=== PATIENT | female | born 1965 ===

== ENCOUNTER 2020-03-14 16:48 | Outpatient (REF) | payer OTHER, SELFPAY ==
--- NOTE | 2020-03-14 | MM_ITS ---
EXAMINATION: MM SCREENING DIGITAL BREAST TOMOSYNTHESIS, BILATERAL CLINICAL INFORMATION: Screening. Asymptomatic. Family history breast cancer, sister, half sister. Prior history focus ALH right breast 2014. No atypia at subsequent surgical biopsy. The lifetime risk of breast cancer based on the Tyrer-Cuzick Model is 32%. COMPARISON: Mammography: 10/20/2018, 3 08/12/2017, 07/21/2016, 01/16/2016, 06/13/2015, 12/06/2014 TECHNIQUE: Digital breast tomosynthesis is performed in both the craniocaudal and mediolateral oblique views along with computer-aided detection (CAD). Synthesized 2D images are generated from the tomosynthesis. FINDINGS: There are scattered areas of fibroglandular density (ACR BI-RADS breast composition Category b). Parenchymal pattern is similar to prior studies. No developing density or interval mass or architectural abnormality. There is biopsy clip marker again seen central right breast. No significant changes. MM/MM tomosynthesis screening BI IMPRESSION: No significant changes from prior studies. ASSESSMENT: BI-RADS 1: Negative RECOMMENDATION: 1. Routine annual mammography screening. 2. The lifetime risk of breast cancer based on the Tyrer-Cuzick Model is 32%. Additional annual adjunct screening with breast MRI may be of benefit in women with a risk score of 20% or greater. This patient's information was entered into a reminder system with a target due date for their next mammogram.
== END 2020-03-14 16:49 | disposition home or self-care (01) ==
LOC: HO.MAMMO 16:48
PROVIDERS: PCP Internal Medicine; Visit Provider Internal Medicine
DX: Z12.31 Encounter for screening mammogram for malignant neoplasm of breast (principal)
CPT/HCPCS: 77063; 77067

== ENCOUNTER → 2020-05-17 12:51 | Outpatient (BNVA) | payer OTHER, SELFPAY | PROVIDERS: PCP Internal Medicine; Visit Provider Nurse Practitioner | DX: Z76.89 Persons encountering health services in other specified circumstances (principal) | CPT/HCPCS: Q3014 ==

== ENCOUNTER → 2020-11-12 15:56 | Outpatient (BNVA) | payer OTHER, SELFPAY | PROVIDERS: PCP Internal Medicine; Visit Provider Nurse Practitioner | CPT/HCPCS: Q3014 ==

== ENCOUNTER → 2020-12-28 10:47 | Outpatient (BNVA) | payer OTHER, SELFPAY | PROVIDERS: Visit Provider Nurse Practitioner | DX: K59.04 Chronic idiopathic constipation (principal); K21.9 Gastro-esophageal reflux disease without esophagitis; R10.9 Unspecified abdominal pain; R14.0 Abdominal distension (gaseous) | CPT/HCPCS: 99212 ==

== ENCOUNTER 2021-01-21 14:13 | Outpatient (REF) | payer OTHER, SELFPAY ==
[2021-01-21 14:26] LABS: MANUAL DIFF FLAG NO
[2021-01-21 14:48] LABS: Basophils Absolute Auto 0.1 X10*3/uL (0.0-0.2); Basophils Percent Auto 0.7 % (0-2); Eosinophils Absolute Auto 0.2 X10*3/uL (0.0-0.4); Eosinophils Percent Auto 3.3 % (0-4); Hematocrit 40.8 % (37-47); Hemoglobin 12.9 g/dl (12.0-16.0); Imm Gran Abs Auto 0.03 X10*3/uL (0.00-0.03); Imm Gran Pct Auto 0.4 % (0.0-0.4); Lymphocytes Percent Auto 28.6 % (20-40); Mean Corpuscular HGB Conc 31.6 g/dl (31.0-35.0); Mean Corpuscular Hemoglobin 28.9 pg (27.0-33.0); Mean Corpuscular Volume 91.3 fL (80-98); Mean Platelet Volume 10.5 fL (9.4-12.3); Monocytes Absolute Auto 0.4 X10*3/uL (0.1-1.2); Monocytes Percent Auto 5.4 % (2-11); Neutrophils Absolute Auto 4.4 X10*3/uL (2.0-8.3); Neutrophils Percent Auto 61.6 % (45-73); Platelet Count 265 X10*3/uL (160-400); Red Blood Count 4.47 X10*6/uL (4.20-5.50); Red Cell Distribution Width 14.3 % (11.0-16.0); White Blood Count 7.1 X10*3/uL (4.8-10.8)
[2021-01-21 14:52] LABS: Prothrombin Time 10.8 SEC (9.9-13.0)
[2021-01-21 15:12] LABS: Cholesterol 171 mg/dL; Glucose Fasting 105 mg/dL (60-99); HDL Cholesterol 47 mg/dL; Iron 67 mcg/dL (30-160); LDL Cholesterol Calculated 97 mg/dl; Percent Iron Saturation 19 % (15-50); Total Iron Binding Capacity 359 mcg/dL (228-428); Triglycerides 135 mg/dL; Unsaturated Iron Binding 292 ug/dL
[2021-01-21 15:33] LABS: TSH reflex Free T4 2.93 uIU/mL (0.32-4.0); Vitamin D 25-OH Total 34.4 ng/mL (>30)
[2021-01-21 15:48] LABS: Folate 17.6 ng/mL (> or = 4.0); Vitamin B12 347 pg/mL (200-900)
== END 2021-01-21 14:14 | disposition home or self-care (01) ==
LOC: HO.LAB 14:13
PROVIDERS: PCP Internal Medicine; Visit Provider Nurse Practitioner Family
DX: E66.9 Obesity, unspecified (principal); I10 Essential (primary) hypertension; R23.8 Other skin changes; R53.82 Chronic fatigue, unspecified; E78.00 Pure hypercholesterolemia, unspecified; E55.9 Vitamin D deficiency, unspecified
CPT/HCPCS: 36415; 80061; 82306; 82607; 82746; 82947; 83540; 84443; 85025; 85610; 85730

== ENCOUNTER 2021-02-08 10:48 | Outpatient (REF) | payer OTHER, SELFPAY ==
--- NOTE | ~2021-02-08 | XR_ITS ---
EXAMINATION: CHEST X-RAY, BILATERAL RIB X-RAYS AND THORACIC SPINE X-RAY CLINICAL INFORMATION: Bilateral lower rib pain radiating to the back COMPARISON: None TECHNIQUE: One view of the chest, 3 views of the bilateral ribs and 3 views of the thoracic spine FINDINGS: Chest: The cardiac and mediastinal contours are stable. The lung volumes are low. The lungs are clear. There is no pleural effusion or pneumothorax. Bilateral RIBS: No fracture or bone lesion seen. Thoracic spine: There is mild curvature of the lower thoracic and upper lumbar spine to the left. Bone alignment is otherwise normal. No fracture or dislocation is seen. There is multilevel degenerative spondylosis of the mid and lower thoracic spine. There is mild degenerative spondylosis at C4-C5 C5-C6 and C6-C7. XR/XR thoracic spine 2V IMPRESSION: No evidence for acute disease in the chest. No rib fracture or bone lesion. Mild degenerative changes of the thoracic spine.
--- NOTE | ~2021-02-08 | XR_ITS ---
EXAMINATION: CHEST X-RAY, BILATERAL RIB X-RAYS AND THORACIC SPINE X-RAY CLINICAL INFORMATION: Bilateral lower rib pain radiating to the back COMPARISON: None TECHNIQUE: One view of the chest, 3 views of the bilateral ribs and 3 views of the thoracic spine FINDINGS: Chest: The cardiac and mediastinal contours are stable. The lung volumes are low. The lungs are clear. There is no pleural effusion or pneumothorax. Bilateral RIBS: No fracture or bone lesion seen. Thoracic spine: There is mild curvature of the lower thoracic and upper lumbar spine to the left. Bone alignment is otherwise normal. No fracture or dislocation is seen. There is multilevel degenerative spondylosis of the mid and lower thoracic spine. There is mild degenerative spondylosis at C4-C5 C5-C6 and C6-C7. XR/XR ribs BI min 4V w CXR1V IMPRESSION: No evidence for acute disease in the chest. No rib fracture or bone lesion. Mild degenerative changes of the thoracic spine.
== END 2021-02-08 10:49 | disposition home or self-care (01) ==
LOC: HO.XRAY 10:48
PROVIDERS: PCP Internal Medicine; Referring Provider Internal Medicine; Visit Provider Nurse Practitioner
DX: R10.9 Unspecified abdominal pain (principal); K21.9 Gastro-esophageal reflux disease without esophagitis; K22.70 Barrett's esophagus without dysplasia; K59.04 Chronic idiopathic constipation; R14.0 Abdominal distension (gaseous); Z83.71 Family history of colonic polyps
CPT/HCPCS: 71111; 72070; 99212

== ENCOUNTER 2021-03-21 13:59 | Outpatient (REF) | payer OTHER, SELFPAY ==
--- NOTE | ~2021-03-21 | MM_ITS ---
EXAMINATION: MM SCREENING DIGITAL BREAST TOMOSYNTHESIS, BILATERAL CLINICAL INFORMATION: Screening. Asymptomatic. The lifetime risk of breast cancer based on the Tyrer-Cuzick Model is 31%. COMPARISON: Mammography: 03/14/2020, 02/20/2019, 08/12/2017 TECHNIQUE: Digital breast tomosynthesis is performed in both the craniocaudal and mediolateral oblique views along with computer-aided detection (CAD). Synthesized 2D images are generated from the tomosynthesis. FINDINGS: There are scattered areas of fibroglandular density (ACR BI-RADS breast composition Category b). Parenchymal pattern is similar to prior exams. No developing density or interval mass or architectural abnormality. There is biopsy clip marker again noted central 11-12:00 right breast. There are scattered bilateral punctate calcifications again seen. No significant changes from prior studies. MM/MM tomosynthesis screening BI IMPRESSION: No mammographic evidence of malignancy. ASSESSMENT: BI-RADS 2: Benign RECOMMENDATION: Routine annual mammography screening. This patient's information was entered into a reminder system with a target due date for their next mammogram.
== END 2021-03-21 14:00 | disposition home or self-care (01) ==
LOC: HO.MAMMO 13:59
PROVIDERS: Visit Provider Internal Medicine
DX: Z12.31 Encounter for screening mammogram for malignant neoplasm of breast (principal)
CPT/HCPCS: 77063; 77067

== ENCOUNTER 2021-12-31 14:46 | Outpatient (REF) | payer OTHER, SELFPAY ==
--- NOTE | ~2021-12-31 | XR_ITS ---
EXAMINATION: XR SACRUM AND COCCYX CLINICAL INFORMATION: Sacrococcygeal disorder COMPARISON: X-ray of the lumbar sacral spine July 2016 TECHNIQUE: 3 views of the sacrum/coccyx FINDINGS: The sacrum and coccyx bones are normal without fracture or bone lesion. The sacroiliac joints are normal. The partially visualized pelvis also normal. Postsurgical changes noted overlying the lower abdomen unchanged. XR/XR sacrum coccyx min 2V IMPRESSION: Unremarkable examination.
[2021-12-31 15:01] LABS: MANUAL DIFF FLAG NO
[2021-12-31 15:21] LABS: Basophils Absolute Auto 0.1 X10*3/uL (0.0-0.2); Basophils Percent Auto 0.9 % (0-2); Eosinophils Absolute Auto 0.2 X10*3/uL (0.0-0.4); Eosinophils Percent Auto 2.6 % (0-4); Hematocrit 43.2 % (37.0-47.0); Hemoglobin 13.7 g/dl (12.0-16.0); Imm Gran Abs Auto 0.03 X10*3/uL (0.00-0.03); Imm Gran Pct Auto 0.4 % (0.0-0.4); Lymphocytes Absolute Auto 2.2 X10*3/uL (1.2-4.9); Lymphocytes Percent Auto 28.6 % (20-40); Mean Corpuscular HGB Conc 31.7 g/dl (31.0-35.0); Mean Corpuscular Hemoglobin 28.5 pg (27.0-33.0); Mean Platelet Volume 10.5 fL (9.4-12.3); Monocytes Absolute Auto 0.4 X10*3/uL (0.1-1.2); Monocytes Percent Auto 5.2 % (2-11); Neutrophils Absolute Auto 4.8 x10*3/uL (2.0-8.3); Neutrophils Percent Auto 62.3 % (45-73); Platelet Count 278 X10*3/uL (160-400); Red Cell Distribution Width 15.5 % (11.0-16.0); White Blood Count 7.7 X10*3/uL (4.8-10.8)
[2021-12-31 15:54] LABS: Alanine Aminotransferase 11 U/L (0-31); Albumin Level 4.3 g/dL (3.5-5.0); Alkaline Phosphatase 95 U/L (39-117); Anion Gap 18 (12-20); Aspartate Amino Transferase 13 U/L (5-31); Bilirubin Total 0.3 mg/dL (0.0-1.0); Blood Urea Nitrogen 27 mg/dL (9-16); Calcium 9.7 mg/dL (8.4-10.2); Carbon Dioxide 23 mmol/L (22-29); Chloride 104 mmol/L (96-108); Estimated Glomerular Filt Rate 31; Glucose Random 108 mg/dL (60-115); Potassium 4.5 mmol/L (3.3-5.1); Sodium 140 mmol/L (135-145); Total Protein 7.4 g/dL (6.5-8.0)
== END 2021-12-31 14:47 | disposition home or self-care (01) ==
LOC: HO.XRAY 14:46
PROVIDERS: PCP Internal Medicine; Visit Provider Nurse Practitioner
DX: Z01.818 Encounter for other preprocedural examination (principal); K21.9 Gastro-esophageal reflux disease without esophagitis; K22.70 Barrett's esophagus without dysplasia; K59.04 Chronic idiopathic constipation; M53.3 Sacrococcygeal disorders, not elsewhere classified; I12.9 Hypertensive chronic kidney disease with stage 1 through stage 4 chronic kidney disease, or unspecified chronic kidney disease; N18.30 Chronic kidney disease, stage 3 unspecified; Z83.71 Family history of colonic polyps; Z79.899 Other long term (current) drug therapy
CPT/HCPCS: 36415; 72220; 80053; 85025; 99212

== ENCOUNTER → 2022-02-10 13:11 | Outpatient (BNVA) | payer OTHER, SELFPAY | PROVIDERS: PCP Internal Medicine; Visit Provider Nurse Practitioner Family | DX: G47.33 Obstructive sleep apnea (adult) (pediatric) (principal) | CPT/HCPCS: 99202 ==

== ENCOUNTER 2022-03-26 13:50 | Outpatient (REF) | payer OTHER, SELFPAY ==
--- NOTE | ~2022-03-26 | MM_ITS ---
EXAMINATION: MM SCREENING DIGITAL BREAST TOMOSYNTHESIS, BILATERAL CLINICAL INFORMATION: Screening. Asymptomatic. Status post right breast biopsy in 2015. The lifetime risk of breast cancer based on the Tyrer-Cuzick Model is 30%. Additional annual screening with breast MRI may be of benefit in women with a score of 20% or greater. COMPARISON: Mammography: 03/21/2021 and studies dating back to 06/13/2015. TECHNIQUE: Digital breast tomosynthesis is performed in both the craniocaudal and mediolateral oblique views along with computer-aided detection (CAD). Synthesized 2D images are generated from the tomosynthesis. FINDINGS: There are scattered areas of fibroglandular density (ACR BI-RADS breast composition Category b). There is a stable parenchymal pattern of the left breast. Within the central medial aspect of the right breast, approximately 8 cm from the nipple, there is a 5 mm density that has not been seen previously and for which spot compression film is recommended. I do not definitely see this on mediolateral oblique imaging and rolled craniocaudal views may be of help in further evaluation as to where the density lies. MM/MM tomosynthesis screening BI IMPRESSION: New 5 mm density right breast for further evaluation. ASSESSMENT: BI-RADS 0: Incomplete - Need Additional Imaging Evaluation RECOMMENDATION: 1. Additional views of the right breast. 2. Targeted ultrasound if warranted after review of the additional views. 3. Radiology department staff will contact the patient for additional imaging.
== END 2022-03-26 13:51 | disposition home or self-care (01) ==
LOC: HO.MAMMO 13:50
PROVIDERS: PCP Internal Medicine Geriatric Medicine; Visit Provider Internal Medicine
DX: Z12.31 Encounter for screening mammogram for malignant neoplasm of breast (principal)
CPT/HCPCS: 77063; 77067

== ENCOUNTER 2022-04-08 10:59 | Outpatient (REF) | payer OTHER, SELFPAY ==
--- NOTE | ~2022-04-08 | MM_ITS ---
EXAMINATION: MM DIAGNOSTIC DIGITAL BREAST TOMOSYNTHESIS, RIGHT US DIAGNOSTIC ULTRASOUND BREAST, RIGHT CLINICAL INFORMATION: Recall from screening for tiny nodular asymmetry mid central right breast on CC view. COMPARISON: Mammography: 03/26/2022, 03/21/2021, 03/14/2020, 10/20/2018 TECHNIQUE: Digital breast tomosynthesis is performed. 2D images are generated from the tomosynthesis. The following views are obtained: Spot CC, rolled CC x2 Ultrasound right breast is targeted to the 4:00 through 8:00 position using grayscale imaging and color Doppler without and with harmonics. FINDINGS: There are scattered areas of fibroglandular density (ACR BI-RADS breast composition Category b). The additional spot view demonstrates tiny nodular asymmetric density just under 5 mm with smooth margins. Finding is not is perceptible on the rolled views. The finding resides adjacent other chronic small fibronodular densities not of recent clinical concern. There is no architectural abnormality. Ultrasound demonstrates 2 tiny circumscribed cysts 6:00 position 4 cm from nipple, larger 5 mm. There is no solid mass or architectural abnormality. Results are discussed with the patient at time of visit. Finding on mammography has benign appearance. One of the small cysts noted on ultrasound may correspond to the finding. As a precaution, short interval six-month follow-up right mammography will be performed. MM/MM tomosynthesis added views R IMPRESSION: -Tiny smooth nodular asymmetric density mid central right breast, possibly corresponding to one of 2 tiny cysts visualized on targeted ultrasound. ASSESSMENT: BI-RADS 3: Probably Benign RECOMMENDATION: Diagnostic right mammography in 6 months. This patient's information was entered into a reminder system with a target due date for their next mammogram.
== END 2022-04-08 11:00 | disposition home or self-care (01) ==
LOC: HO.MAMMO 10:59
PROVIDERS: PCP Internal Medicine; Visit Provider Internal Medicine
DX: R92.2 Inconclusive mammogram (principal)
CPT/HCPCS: 76642; 77061; 77065

== ENCOUNTER 2022-04-30 14:57 | Outpatient (REF) | payer OTHER, SELFPAY | END 2022-04-30 14:58 | disposition home or self-care (01) | LOC: HO.LAB 14:57 | PROVIDERS: Visit Provider Nurse Practitioner Family | DX: R10.9 Unspecified abdominal pain (principal) | CPT/HCPCS: 87086 ==

== ENCOUNTER 2022-05-01 12:11 | Outpatient (REF) | payer OTHER, SELFPAY ==
--- NOTE | ~2022-05-01 | US_ITS ---
EXAMINATION: US ABDOMEN COMPLETE US APPENDIX CLINICAL INFORMATION: Right lower quadrant abdominal tenderness.. COMPARISON: 12/22/2016 TECHNIQUE: Real-time imaging of the abdominal viscera. FINDINGS: PANCREAS: The pancreas is obscured by overlying bowel gas. ABDOMINAL AORTA: The proximal abdominal aorta is not identified due to overlying bowel gas. The mid and distal abdominal aorta appear unremarkable. INFERIOR VENA CAVA: Visualized portions are normal. LIVER: Normal. The liver is normal in size. The liver contour is normal. Parenchymal echogenicity is normal. No focal hepatic lesion. There is no intrahepatic biliary duct dilatation seen. GALLBLADDER: Status post cholecystectomy. COMMON BILE DUCT: Normal in caliber measuring 0.4 cm in diameter. RIGHT KIDNEY: Normal. No hydronephrosis. No renal calculi or focal parenchymal lesions. The kidney measures 9 cm in maximum dimension. LEFT KIDNEY: Within the lower pole there is a 6 mm simple appearing cyst. No hydronephrosis. No renal calculi or focal solid parenchymal lesions. The kidney measures 9.4 cm in maximum dimension. SPLEEN: Normal. The spleen measures 9.5 cm in maximum dimension. FREE FLUID: None. APPENDIX: The appendix is not visualized by ultrasound. No blind ending tubular structure was identified. No adjacent free fluid is seen. US/US abdomen complete IMPRESSION: No significant abnormality of the abdomen on ultrasound. Nonvisualization of the appendix. This does not rule out appendicitis.
--- NOTE | ~2022-05-01 | US_ITS ---
EXAMINATION: US ABDOMEN COMPLETE US APPENDIX CLINICAL INFORMATION: Right lower quadrant abdominal tenderness.. COMPARISON: 12/22/2016 TECHNIQUE: Real-time imaging of the abdominal viscera. FINDINGS: PANCREAS: The pancreas is obscured by overlying bowel gas. ABDOMINAL AORTA: The proximal abdominal aorta is not identified due to overlying bowel gas. The mid and distal abdominal aorta appear unremarkable. INFERIOR VENA CAVA: Visualized portions are normal. LIVER: Normal. The liver is normal in size. The liver contour is normal. Parenchymal echogenicity is normal. No focal hepatic lesion. There is no intrahepatic biliary duct dilatation seen. GALLBLADDER: Status post cholecystectomy. COMMON BILE DUCT: Normal in caliber measuring 0.4 cm in diameter. RIGHT KIDNEY: Normal. No hydronephrosis. No renal calculi or focal parenchymal lesions. The kidney measures 9 cm in maximum dimension. LEFT KIDNEY: Within the lower pole there is a 6 mm simple appearing cyst. No hydronephrosis. No renal calculi or focal solid parenchymal lesions. The kidney measures 9.4 cm in maximum dimension. SPLEEN: Normal. The spleen measures 9.5 cm in maximum dimension. FREE FLUID: None. APPENDIX: The appendix is not visualized by ultrasound. No blind ending tubular structure was identified. No adjacent free fluid is seen. US/US appendix IMPRESSION: No significant abnormality of the abdomen on ultrasound. Nonvisualization of the appendix. This does not rule out appendicitis.
[2022-05-01 12:24] LABS: MANUAL DIFF FLAG NO
[2022-05-01 13:24] LABS: Basophils Percent Auto 0.5 % (0-2); Eosinophils Absolute Auto 0.2 X10*3/uL (0.0-0.4); Eosinophils Percent Auto 2.9 % (0-4); Hematocrit 42.8 % (37.0-47.0); Hemoglobin 13.4 g/dl (12.0-16.0); Imm Gran Abs Auto 0.02 X10*3/uL (0.00-0.03); Imm Gran Pct Auto 0.3 % (0.0-0.4); Lymphocytes Absolute Auto 2.4 X10*3/uL (1.2-4.9); Lymphocytes Percent Auto 31.6 % (20-40); Mean Corpuscular HGB Conc 31.3 g/dl (31.0-35.0); Mean Corpuscular Hemoglobin 28.9 pg (27.0-33.0); Mean Corpuscular Volume 92.2 fL (80.0-98.0); Mean Platelet Volume 11.7 fL (9.4-12.3); Monocytes Absolute Auto 0.4 X10*3/uL (0.1-1.2); Monocytes Percent Auto 4.9 % (2-11); Neutrophils Absolute Auto 4.5 x10*3/uL (2.0-8.3); Neutrophils Percent Auto 59.8 % (45-73); Platelet Count 217 X10*3/uL (160-400); Red Blood Count 4.64 X10*6/uL (4.20-5.50); White Blood Count 7.5 X10*3/uL (4.8-10.8)
[2022-05-01 13:28] LABS: Appearance Urine Clear; Color Urine Yellow; Glucose Urine UA Negative (Negative); Leukocyte Esterase Urine Negative (Negative); Nitrite Urine Negative (Negative); Specific Gravity - Urine 1.015 (1.005-1.025); UMIC TRIGGER UACC YES; Urine Blood Small (1+) (Negative); Urine Ketones Negative (Negative); Urine Protein 300 (3+) mg/dL (Neg-Trace)
[2022-05-01 13:37] LABS: Bacteria Urine None Seen (None Seen); Hyaline Casts Urine 0-2 /LPF (0-2); RBC Urine 0-2 /HPF (0-2); Squamous Epithelial Cell Urine 0-2 /HPF (0-2); WBC Urine 0-5 /HPF (0-5)
[2022-05-01 14:00] LABS: Creatinine Urine 96.86 mg/dL
[2022-05-01 14:04] LABS: Alanine Aminotransferase 11 U/L (0-31); Alkaline Phosphatase 82 U/L (39-117); Anion Gap 12 (12-20); Aspartate Amino Transferase 17 U/L (5-31); Bilirubin Total 0.3 mg/dL (0.0-1.0); Blood Urea Nitrogen 23 mg/dL (9-16); Calcium 9.2 mg/dL (8.4-10.2); Carbon Dioxide 23 mmol/L (22-29); Chloride 110 mmol/L (96-108); Cholesterol 196 mg/dL; Estimated Glomerular Filt Rate 39; Glucose Fasting 92 mg/dL (60-99); Glucose Random 92 mg/dL (60-115); HDL Cholesterol 53 mg/dL; LDL Cholesterol Calculated 116 mg/dl; Potassium 4.7 mmol/L (3.3-5.1); Sodium 140 mmol/L (135-145); Total Protein 6.9 g/dL (6.5-8.0); Triglycerides 135 mg/dL
[2022-05-01 14:11] LABS: Microalbum/Creatinine Ratio Ur 1270.9 ug/mg cr
[2022-05-01 14:18] LABS: TSH reflex Free T4 4.44 uIU/mL (0.32-4.0); Vitamin D 25-OH Total 21.9 ng/mL (>30)
== END 2022-05-01 12:12 | disposition home or self-care (01) ==
LOC: HO.US 12:11
PROVIDERS: PCP Internal Medicine; Visit Provider Nurse Practitioner Family
DX: Z00.00 Encounter for general adult medical examination without abnormal findings (principal); R10.813 Right lower quadrant abdominal tenderness; E55.9 Vitamin D deficiency, unspecified; I10 Essential (primary) hypertension; E78.00 Pure hypercholesterolemia, unspecified; E11.9 Type 2 diabetes mellitus without complications
CPT/HCPCS: 36415; 76700; 76705; 80053; 80061; 81001; 82043; 82306; 84439; 84443; 85025

== ENCOUNTER → 2022-06-09 19:30 | Outpatient (REF) | payer OTHER, SELFPAY | LOC: HO.SL 19:30 | PROVIDERS: PCP Internal Medicine; Visit Provider Nurse Practitioner Family | DX: G47.33 Obstructive sleep apnea (adult) (pediatric) (principal) | CPT/HCPCS: 95810 ==

== ENCOUNTER 2022-06-11 16:14 | Outpatient (REF) | payer OTHER, SELFPAY | END 2022-06-11 16:15 | disposition home or self-care (01) | LOC: HO.LAB 16:14 | PROVIDERS: Visit Provider Nurse Practitioner Family | DX: R82.90 Unspecified abnormal findings in urine (principal); M54.9 Dorsalgia, unspecified | CPT/HCPCS: 87086 ==

== ENCOUNTER → 2022-06-26 10:49 | Outpatient (BNVA) | payer OTHER, SELFPAY | PROVIDERS: PCP Internal Medicine; Visit Provider Nurse Practitioner | DX: K22.70 Barrett's esophagus without dysplasia (principal); K21.9 Gastro-esophageal reflux disease without esophagitis; K59.04 Chronic idiopathic constipation; R10.9 Unspecified abdominal pain; Z83.71 Family history of colonic polyps | CPT/HCPCS: 99212 ==

== ENCOUNTER 2022-08-11 18:20 | Outpatient (REF) | payer OTHER, SELFPAY ==
--- NOTE | ~2022-08-11 | MR_ITS ---
EXAMINATION: MR THORACIC SPINE WITHOUT CONTRAST CLINICAL INFORMATION: 57-year-old with unspecified abdominal and right flank pain, worse with activities. COMPARISON: None available. TECHNIQUE: MRI of the thoracic spine was obtained using routine sequences without contrast. FINDINGS: ALIGNMENT: There is slight lower thoracic dextrocurvature, minimally convex to the right at T8-T9. Mild kyphotic angulation is centered at T6-T7. Otherwise normal spinal alignment. VERTEBRAL BODIES AND BONE MARROW: Vertebral body heights are well-maintained. Bone marrow signal intensity is within normal limits. No fractures or aggressive osseous lesions are identified. DISC SPACES AND ENDPLATES: Discogenic degenerative changes are noted at multiple levels between T3-T4 and T11-T12 inclusive, with predominantly mild and moderate degrees of intervertebral disc space height loss, multilevel disc desiccation, Schmorl's nodes and mild-to -moderate degrees of anterior marginal spondylosis. There is bridging osteophytosis asymmetric to the right at T7-T8 and T8-T9 and on the right at T11-T12. PARASPINAL SOFT TISSUES: The paravertebral soft tissues are grossly unremarkable in appearance. There are scattered small probable renal cysts bilaterally which can be confirmed sonographically if clinically warranted. SPINAL CORD: The thoracic spinal cord is normal in morphology, caliber and signal intensity throughout. The conus terminates at the L2 level. CSF flow artifacts are seen within the spinal subarachnoid space at multiple levels. SPINAL LEVELS: C7-T1: Not included on the axial views. Suspect central to right paramedian disc herniation at this level. Cannot exclude cord impingement. Not well visualized. No significant neural foraminal stenosis. Consider MRI of the cervical spine. T1-T2: Partially included on the axials. No disc herniation or canal stenosis. No significant DJD or neural foraminal stenosis. T2-T3: Posterolateral disc osteophyte complex asymmetric to the left with minor facet arthropathy and minimal left-sided foraminal narrowing without neural impingement or canal stenosis. T3-T4: Posterolateral disc osteophyte complex asymmetric to the left and a right paramedian disc herniation without cord impingement or significant canal stenosis. No significant neural foraminal stenosis. T4-T5: Right posterolateral disc osteophyte complex noted with minor facet arthrosis without canal or neural foraminal stenosis. T5-T6: Minor posterolateral disc osteophyte complex and facet arthropathy, right more than left without canal or foraminal stenosis. T6-T7: Unremarkable. T7-T8: Unremarkable. T8-T9: Tiny right paramedian disc protrusion. No canal or foraminal stenosis. T9-T10: Small central to right paramedian disc protrusion without cord impingement, canal or foraminal stenosis. Minor facet arthrosis on the right. T10-T11: Central to right paramedian disc protrusion without cord impingement. No canal stenosis. Facet arthropathy noted on the right with [id number] right-sided neural foraminal stenosis. T11-T12: No disc herniation or canal stenosis. Mild facet arthropathy on the right without significant neural foraminal stenosis. T12-L1: Unremarkable. L1-L2: Tiny central disc protrusion. No facet arthrosis, canal or neural foraminal stenosis. MR/MR thoracic spine wo con IMPRESSION: 1. Mild mid thoracic kyphosis with slight lower thoracic dextrocurvature. 2. Multilevel DDD and spondylosis, with multilevel disc herniations and disc osteophyte complexes without spinal cord impingement or significant spinal canal stenosis. 3. Multilevel facet arthropathy as described above with [id number] right-sided neural foraminal stenosis at T10-T11 without neural impingement. 4. Suspect central to right paramedian disc herniation at C7-T1 which is not well visualized on this exam. Consider MR of the cervical spine to further assess if clinically warranted. 5. Normal appearance to the thoracic spinal cord. 6. Probable small renal cysts bilaterally which can be confirmed sonographically if clinically warranted.
== END 2022-08-11 18:21 | disposition home or self-care (01) ==
LOC: HO.MRI 18:20
PROVIDERS: PCP Internal Medicine; Visit Provider Nurse Practitioner
DX: M47.814 Spondylosis without myelopathy or radiculopathy, thoracic region (principal); R10.9 Unspecified abdominal pain
CPT/HCPCS: 72146

== ENCOUNTER → 2022-08-21 11:05 | Outpatient (BNVA) | payer OTHER, SELFPAY | PROVIDERS: PCP Internal Medicine; Visit Provider Nurse Practitioner | DX: K21.9 Gastro-esophageal reflux disease without esophagitis (principal); K22.70 Barrett's esophagus without dysplasia; K59.04 Chronic idiopathic constipation; R14.0 Abdominal distension (gaseous); Z83.71 Family history of colonic polyps | CPT/HCPCS: 99212 ==

== ENCOUNTER 2022-09-04 09:05 | Outpatient (REF) | payer OTHER, SELFPAY ==
[2022-09-04 10:11] LABS: Estimated Average Glucose 114 mg/dL; Hemoglobin A1c % 5.6 %
[2022-09-04 10:18] LABS: Alanine Aminotransferase 11 U/L (0-31); Albumin Level 3.9 g/dL (3.5-5.0); Alkaline Phosphatase 82 U/L (39-117); Anion Gap 12 (12-20); Aspartate Amino Transferase 11 U/L (5-31); Bilirubin Total 0.5 mg/dL (0.0-1.0); Blood Urea Nitrogen 24 mg/dL (9-16); Calcium 9.6 mg/dL (8.4-10.2); Carbon Dioxide 24 mmol/L (22-29); Chloride 111 mmol/L (96-108); Estimated Glomerular Filt Rate 30; Glucose Fasting 105 mg/dL (60-99); Sodium 143 mmol/L (135-145); Total Protein 6.6 g/dL (6.5-8.0)
== END 2022-09-04 09:06 | disposition home or self-care (01) ==
LOC: HO.LAB 09:05
PROVIDERS: PCP Internal Medicine; Visit Provider Internal Medicine
DX: R73.9 Hyperglycemia, unspecified (principal)
CPT/HCPCS: 36415; 80053; 83036

== ENCOUNTER 2022-09-08 10:48 | Outpatient (REF) | payer OTHER, SELFPAY ==
--- NOTE | ~2022-09-08 | MM_ITS ---
EXAMINATION: MM DIAGNOSTIC DIGITAL BREAST TOMOSYNTHESIS, RIGHT CLINICAL INFORMATION: Short interval six-month follow-up for tiny nodular asymmetry mid central right breast, likely corresponding to tiny cysts on targeted ultrasound. Prior history stereotactic right breast biopsy 2014 at two sites (breast tissue with foci and columnar cell hyperplasia with microcalcifications; focus ALH at one site). Open surgical biopsy for the focus ALH at one of the sites 05/31/2014 (prior biopsy site changes, metal clip, columnar cell hyperplasia, fibrocystic changes with mild ductal hyperplasia, no malignancy). COMPARISON: Multiple mammography exams including most recent 03/21/2021 and as well as prior more remote magnification views right breast. TECHNIQUE: Digital breast tomosynthesis is performed in both the craniocaudal and mediolateral oblique views along with computer-aided detection (CAD). Synthesized 2D images are generated from the tomosynthesis. Additional views right breast: Right right ML, magnification right CC x3, magnification right ML x2. FINDINGS: There are scattered areas of fibroglandular density (ACR BI-RADS breast composition Category b). Parenchymal pattern is similar to prior exams and there is no developing density or interval architectural abnormality. The tiny nodule central right breast for follow-up is no longer clearly visualized consistent with regressed cyst. There are new fine calcifications mid 12:00 right breast which prompted the additional right magnification views. The magnification views show 2 groups of calcifications mid upper right breast each around 4 cm superior to the old biopsy clip marker. The calcifications in the larger group are over 10 in number and vary in size and attenuation. There is also a third tight group calcifications around 2 cm above the clip in area of only a few millimeters across. Results are discussed with the patient at time of visit. Stereotactic sampling of the new right breast calcifications is recommended, possibly at 2 sites if able. Results and recommendation called to deputy juvenile officer (Makenzie) for Dr. Duarte on 09/08/2022. MM/MM tomosynthesis diagnostic RT IMPRESSION: -New calcifications mid upper right breast. -The tiny nodule for follow-up (likely a cyst) is no longer demonstrated. ASSESSMENT: BI-RADS 4: Suspicious RECOMMENDATION: Stereotactic sampling upper right breast calcifications, possibly at 2 sites if able. This patient's information was entered into a reminder system with a target due date for their next mammogram.
== END 2022-09-08 10:49 | disposition home or self-care (01) ==
LOC: HO.MAMMO 10:48
PROVIDERS: PCP Internal Medicine; Visit Provider Internal Medicine
DX: R92.2 Inconclusive mammogram (principal)
CPT/HCPCS: 77061; 77065

== ENCOUNTER 2022-09-09 11:53 | Day surgery (SDC) | payer OTHER, SELFPAY ==
[2022-09-05 12:14] VITALS: BMI 38.4
--- NOTE | 2022-09-08 10:50 | HO.ANESPROP2 ---
Documented by User: Natasha Aragon NP 09/08/22 10:52 HPI - Anesthesia Eval Consult details Narrative: 57yo F for Upper Endoscopy and Colonoscopy CKD (htn). Follows renal. Baseline creat ~ 1.4 PMFSH Active Problems Active Problems: All Active Problems (Updated 09/05/22 @ 12:05 by Kusum Peterson RN) Abdominal cramping (Acute) GERD (gastroesophageal reflux disease) (Acute) Roach's esophagus (Acute) Chronic idiopathic constipation (Acute) Family history of colonic polyps (Acute) Abdominal bloating (Acute) Chronic fatigue (Acute) Bruises easily (Acute) Obesity (BMI 30-39.9) (Acute) Moderate anxiety (Acute) Severe depression (Acute) Proteinuria (Acute) Right flank pain (Acute) Right lateral abdominal pain (Acute) Pre-op examination (Acute) Coccyx pain (Acute) CKD (chronic kidney disease) stage 3, GFR 30-59 ml/min (Acute) Annual physical exam (Acute) Edema (Acute) LEANNA treated with BiPAP (Acute) RLQ abdominal tenderness (Acute) Right flank pain (Acute) Elevated TSH (Acute) Left elbow pain (Acute) Left shoulder pain (Acute) Mid back pain on right side (Acute) Thoracic spondylosis (Acute) Asthma (Acute) Migraine (Acute) Obstructive sleep apnea (Acute) Benign essential hypertension (Acute) Hypertension (Acute) Vitamin D deficiency (Acute) Past Medical History Medical History Asthma Benign essential hypertension Chronic renal insufficiency Diverticulitis Hypertension Migraine Normal colonoscopy (~12/25/16) Obstructive sleep apnea Vitamin D deficiency Family History Family History Mother High blood pressure Diabetes Arthritis Father Diabetes Kidney disease Heart disease Brother Diabetes Surgical History Surgical History History of ankle surgery (~2012) History of bilateral tubal ligation History of carpal tunnel repair History of cryosurgery History of esophagogastroduodenoscopy History of facial surgery History of nasal surgery History of pubovaginal sling Hx laparoscopic cholecystectomy (~2001) Hx of colonoscopy Hx of hernia repair Social History Social History Household Members: None Housing: Apartment Alcohol intake: current Alcohol intake frequency: a few times a month Alcohol type: wine and hard liquor Patient Tobacco Use Status: Former Tobacco user Quit Date: 2002 Tobacco use type: Cigarette Years Smoked: 7 e-Cigarette/Vaping Use: Never Used Second Hand Smoke Exposure: No Use of substances other than those prescribed or required for medical reasons: No Are you DNR?: No Advance Directives: No Advance Directives Information Provided: Yes service: No Current occupational status: disabled Cognitive needs: No Hearing needs: No Vision needs: Yes Meds Allergies Allergy/AdvReac Type Severity Reaction Status Date / Time FRANK Inhibitors Allergy Unknown PER H&P Verified 09/09/22 12:32 [FRANK INHIBITORS] codeine Allergy Unknown RASH Verified 09/09/22 12:32 meperidine Allergy Unknown RASH Verified 09/09/22 12:32 morphine Allergy Unknown RASH, DIFF Verified 09/09/22 12:32 BREATHING,CHEST PRESSURE, throat swelling From BENADRYL Allergy Severe ANGIOEDEMA Uncoded 09/09/22 12:32 From DILAUDID Allergy Intermediate INCREASED Uncoded 09/09/22 12:32 BP TAPE,PLASTIC Allergy Unknown RASH Uncoded 09/09/22 12:32 Home Medications Medication Instructions Recorded Confirmed Last Taken Type albuterol sulfate 90 mcg/actuation 2 puff PO Q4H PRN wheezing 05/17/20 09/09/22 Unknown History aerosol inhaler budesonide-formoterol HFA 160 2 inh inhalation BID 05/17/20 09/09/22 Unknown History mcg-4.5 mcg/actuation aerosol inhaler losartan 50 mg tablet 50 mg PO DAILY 05/17/20 09/09/22 Unknown History topiramate 50 mg tablet 100 mg PO BID 05/17/20 09/09/22 09/09/22 History rizatriptan 10 mg tablet 10 mg PO ONCE 01/26/22 09/09/22 Unknown History amlodipine 5 mg tablet 5 mg PO DAILY 06/26/22 09/09/22 09/09/22 History tizanidine 2 mg tablet 2 mg PO BID PRN muscle spasticity 06/26/22 09/09/22 Unknown History furosemide 20 mg tablet 20 mg PO DAILY 08/21/22 09/09/22 Unknown History famotidine 40 mg tablet 40 mg PO BEDTIME 09/05/22 09/09/22 Unknown History Exam Exam Date and Time: September 08, 2022 1050 Height,Weight and Vital Signs: Height 5 ft 1 in Weight 92.079 kg Pertinent Lab Results Pertinent Lab Results: Laboratory Tests 05/01/22 09/04/22 12:22 09:15 WBC 7.5 Hgb 13.4 Hct 42.8 Plt Count 217 Sodium 143 Potassium 4.0 Chloride 111 H Carbon Dioxide 24 BUN 24 H Creatinine 1.74 H Assessment and Plan Assessment Anesthesia Assessment: Chart Reviewed Documented by User: Bertram Rhodes MD 09/09/22 14:22 PMFSH Past Medical History Medical History Asthma Benign essential hypertension Chronic renal insufficiency Diverticulitis Hypertension Migraine Normal colonoscopy (~12/25/16) Obstructive sleep apnea Vitamin D deficiency Family History Family History Mother High blood pressure Diabetes Arthritis Father Diabetes Kidney disease Heart disease Brother Diabetes Family history of problems with anesthesia: No Surgical History Surgical History History of ankle surgery (~2012) History of bilateral tubal ligation History of carpal tunnel repair History of cryosurgery History of esophagogastroduodenoscopy History of facial surgery History of nasal surgery History of pubovaginal sling Hx laparoscopic cholecystectomy (~2001) Hx of colonoscopy Hx of hernia repair History of Problems with Anesthesia: No Social History Social History Household Members: None Housing: Apartment Alcohol intake: current Alcohol intake frequency: a few times a month Alcohol type: wine and hard liquor Patient Tobacco Use Status: Former Tobacco user Quit Date: 2002 Tobacco use type: Cigarette Years Smoked: 7 e-Cigarette/Vaping Use: Never Used Second Hand Smoke Exposure: No Use of substances other than those prescribed or required for medical reasons: No Are you DNR?: No Advance Directives: No Advance Directives Information Provided: Yes service: No Current occupational status: disabled Cognitive needs: No Hearing needs: No Vision needs: Yes Meds Allergies Allergy/AdvReac Type Severity Reaction Status Date / Time FRANK Inhibitors Allergy Unknown PER H&P Verified 09/09/22 12:32 [FRANK INHIBITORS] codeine Allergy Unknown RASH Verified 09/09/22 12:32 meperidine Allergy Unknown RASH Verified 09/09/22 12:32 morphine Allergy Unknown RASH, DIFF Verified 09/09/22 12:32 BREATHING,CHEST PRESSURE, throat swelling From BENADRYL Allergy Severe ANGIOEDEMA Uncoded 09/09/22 12:32 From DILAUDID Allergy Intermediate INCREASED Uncoded 09/09/22 12:32 BP TAPE,PLASTIC Allergy Unknown RASH Uncoded 09/09/22 12:32 Home Medications Medication Instructions Recorded Confirmed Last Taken Type albuterol sulfate 90 mcg/actuation 2 puff PO Q4H PRN wheezing 05/17/20 09/09/22 Unknown History aerosol inhaler budesonide-formoterol HFA 160 2 inh inhalation BID 05/17/20 09/09/22 Unknown History mcg-4.5 mcg/actuation aerosol inhaler losartan 50 mg tablet 50 mg PO DAILY 05/17/20 09/09/22 Unknown History topiramate 50 mg tablet 100 mg PO BID 05/17/20 09/09/22 09/09/22 History rizatriptan 10 mg tablet 10 mg PO ONCE 01/26/22 09/09/22 Unknown History amlodipine 5 mg tablet 5 mg PO DAILY 06/26/22 09/09/22 09/09/22 History tizanidine 2 mg tablet 2 mg PO BID PRN muscle spasticity 06/26/22 09/09/22 Unknown History furosemide 20 mg tablet 20 mg PO DAILY 08/21/22 09/09/22 Unknown History famotidine 40 mg tablet 40 mg PO BEDTIME 09/05/22 09/09/22 Unknown History Exam Airway Mallampati Class: II TM Dist: >3cm Neck ROM: Full Loose/Missing/Broken Teeth: No Assessment and Plan Assessment Anesthesia Assessment: Anesthesia Plan Discussed Final Anesthetic Review Family History of Problems with Anesthesia: No History of Problems with Anesthesia: No NPO: Yes ASA Class: III Final Preanesthetic Review: No Changes in Pt Med Stat, Meds/Allgs Chart Reviewed, Consent Obtained/Reviewed and Anes Risks/Benef Reviewed Patient Risk: Intermediate Anesthetic Plan Anesthetic Plan: MAC: Disposition: Standard PACU
[2022-09-09 12:20] VITALS: BP 149/85; PULSE 70; RESP 16; TEMP 36.4; O2SAT 98; BMI 37.8
[2022-09-09] MEDS: Lactated Ringers 1,000 ML 100 ML IVCONT (12:41)
--- NOTE | 2022-09-09 14:10 | MHC.SHP ---
Pre-Procedural Eval Section A Date of Service: 09/09/22 Section B Chief Complaint: barretts and colon screening Relevant Family History (Specify if Yes): Yes Relevant Social History: None Present Medications: see Short Stay Collaborative assessment Medical History: Significant History (Asthma Benign essential hypertension Chronic renal insufficiency Diverticulitis Hypertension Migraine Normal colonoscopy (~12/25/16) Obstructive sleep apnea Vitamin D deficiency) History of Previous Operations: Relevant previous surgery/procedure and date(s) (History of ankle surgery (~2012) History of bilateral tubal ligation History of carpal tunnel repair History of cryosurgery History of esophagogastroduodenoscopy History of facial surgery History of nasal surgery History of pubovaginal sling Hx laparoscopic cholecystectomy (~2001) Hx of colonoscopy ) Allergies: Allergies Allergy/AdvReac Type Severity Reaction Status Date / Time FRANK Inhibitors Allergy Unknown PER H&P Verified 09/09/22 12:32 [FRANK INHIBITORS] codeine Allergy Unknown RASH Verified 09/09/22 12:32 meperidine Allergy Unknown RASH Verified 09/09/22 12:32 morphine Allergy Unknown RASH, DIFF Verified 09/09/22 12:32 BREATHING,CHEST PRESSURE, throat swelling From BENADRYL Allergy Severe ANGIOEDEMA Uncoded 09/09/22 12:32 From DILAUDID Allergy Intermediate INCREASED Uncoded 09/09/22 12:32 BP TAPE,PLASTIC Allergy Unknown RASH Uncoded 09/09/22 12:32 Review of Systems Sugical H&P ROS: Negative: Constitution, Cardiovascular, Respiratory, Neurological, Psychiatric, Hem-Onc, Allergic/Immunologic, Gastrointestinal, Genitourinary, Musculoskeletal, Integumentary, Endocrine and Eyes/Ears/Nose/Throat Exam Surgical H&P Exam: Normal: HEENT, Normal: Heart, Normal: Lungs, Normal: Extremities, Normal: Abdomen, Normal: Skin and Normal: Neurological Plan Diagnosis/Plan: Unchanged I have reviewed the history and physical and performed a pertinent physical examination on my patient. No changes have occurred unless specified. Time Spent With Patient Time: Total time managing care of this patient today ____ minutes.
--- NOTE | 2022-09-09 14:18 | P.OP_ITS ---
Operative Note Operative Note Date of Service: 09/09/22 Narrative: Operative Information Procedure Description: EGD, Colonoscopy Indication: barretts and colon screening Anesthesia: MAC FLEXIBLE TRANSORAL UPPER GASTROINTESTINAL ENDOSCOPY AND COLONOSCOPY PROCEDURE NOTE UPPER ENDOSCOPY Consent: Indications for the procedure and potential complications of bleeding, perforation, reaction to medications and missed diagnosis were discussed with the patient and informed consent was obtained. Instrument: Olympus GIF H 190 J mid size upper endoscope Monitoring: Vital signs and clinical assessment, continuous EKG monitoring, Pulse oximetry, Carbon Dioxide monitoring and blood pressure monitoring were done throughout the procedure. Procedure: The patient was placed in the left lateral decubitis position and pre-procedure medications were administered and a bite block was placed. The endoscope was inserted into the mouth and advanced under direct vision to the third part of duodenum. A careful inspection was made as the upper endoscope was withdrawn including a retroflexed examination of the proximal stomach; Findings and interventions are described below. Findings: Larynx:normal Esophagus: GE junction at 35 cm, diaphragm hiatus at 35 cm, bogginess and erythema GEJ, bx taken, maybe one small salmon pink patch of possible barrets, bx also taken from distal esophaguis Stomach: Granular ,erythematous mucosa. Biopsies were obtained. Grade 2 flap valve on retroflexed examination of the cardia. Duodenum: Normal bulb and descending duodenum, Intervention: Biopsies as noted above COLONOSCOPY Instrument: Olympus variable stiffness pediatric scope 190L Colonoscopy Monitoring: Vital signs and clinical assessment, continuous EKG monitoring, Pulse oximetry, Carbon Dioxide monitoring and blood pressure monitoring were done throughout the procedure. Colon withdrawal time was 8 minutes. Procedure: The patient was placed in the left lateral decubitis position and pre-procedure medications were administered. After a digital rectal examination of the ano-rectum, the video colonoscope was inserted into the rectum and advanced through the colon to the cecum/TI. The colonoscope was slowly withdrawn in a retrograde panoramic fashion and the colon mucosa was carefully examined including a retroflexed view of the rectum. Findings and interventions are described below. Procedure Difficulty:moderate Findings: Terminal Ileum-normal Cecum:normal right sided retroflexion--nml Ascending Colon: normal Transverse Colon - 4-6 mm sessile polyp removed with cold snare Descending Colon: 4-6 mm sessile polyp removed with cold snare Sigmoid Colon:mild diverticulosis noted Rectum: Retroflexion with small internal hemorrhoids, grade I Anorectum - normal Colon preparation: Mckinnon Bowel Preparation Scale Right colon; 2 Transverse colon: 2 Left colon; 3 (0 = Unprepared colon segment with mucosa not seen due to solid stool that cannot be cleared. 1 = Portion of mucosa of the colon segment seen, but other areas of the colon segment not well seen due to staining, residual stool and/or opaque liquid. 2 = Minor amount of residual staining, small fragments of stool and/or opaque liquid, but mucosa of colon segment seen well. 3 = Entire mucosa of colon segment seen well with no residual staining, small fragments of stool or opaque liquid) Impression and Post Procedure Diagnosis: Endoscopy Findings: gastritis esophagitis Colonoscopy Findings: polyps internal hemorrhoids diverticular disease Plan: Await Pathology results Repeat Colonoscopy in 5 years due to polyps or earlier if clinically indicated High fiber diet leaflet avoid straining at stool, epsom salts and sitz bath, anusol supps or cream reflux precautions Above findings were reviewed with the patient and relevant handouts were provided if indicated.
[2022-09-09 15:02] VITALS: BP 138/87; PULSE 82; RESP 16; TEMP 36.3; O2SAT 99
[2022-09-09 15:17] VITALS: BP 156/88; PULSE 63; RESP 14; TEMP 36.2; O2SAT 99
== END 2022-09-09 15:42 | disposition home or self-care (01) ==
PROVIDERS: PCP Internal Medicine; Visit Provider Internal Medicine Gastroenterology
PROC: (CPT 45385; principal; 2022-09-09 14:00)
DX: Z12.11 Encounter for screening for malignant neoplasm of colon (principal); K63.5 Polyp of colon; K57.30 Diverticulosis of large intestine without perforation or abscess without bleeding; K64.0 First degree hemorrhoids; K22.70 Barrett's esophagus without dysplasia; K29.50 Unspecified chronic gastritis without bleeding; K20.80 Other esophagitis without bleeding; K31.7 Polyp of stomach and duodenum; J45.909 Unspecified asthma, uncomplicated; I12.9 Hypertensive chronic kidney disease with stage 1 through stage 4 chronic kidney disease, or unspecified chronic kidney disease; N18.30 Chronic kidney disease, stage 3 unspecified; K44.9 Diaphragmatic hernia without obstruction or gangrene; G47.33 Obstructive sleep apnea (adult) (pediatric); E55.9 Vitamin D deficiency, unspecified; Z79.899 Other long term (current) drug therapy; L23.1 Allergic contact dermatitis due to adhesives; Z88.8 Allergy status to other drugs, medicaments and biological substances; Z90.49 Acquired absence of other specified parts of digestive tract; Z98.890 Other specified postprocedural states; Z87.891 Personal history of nicotine dependence
CPT/HCPCS: 45385; 43239; 88305; 88342

== ENCOUNTER 2022-09-11 09:52 | Outpatient (REF) | payer OTHER, SELFPAY ==
--- NOTE | ~2022-09-11 | MM_ITS ---
The right breast stereotactic biopsy report for specimen B is included in a single combined report along with the stereotactic sampling specimen A, under accession number [id number].
--- NOTE | ~2022-09-11 | MM_ITS ---
EXAMINATION: STEREOTACTIC-GUIDED VACUUM-ASSISTED BREAST BIOPSY (TWO SITES), RIGHT SPECIMEN RADIOGRAPHS, RIGHT POST PROCEDURE DIGITAL MAMMOGRAM, RIGHT CLINICAL INFORMATION: New calcifications mid upper right breast, stereotactic sampling at 2 of the sites suggested. COMPARISON: Prior mammography exams including most recent 09/08/2022. TECHNIQUE/PROCEDURE: Informed consent was obtained from the patient after discussion of the benefits, risks, and alternatives to biopsy today. Patient appeared to understand. Gave opportunity for questions. Patient signed consent form. BIOPSY TABLE: [employer] Affirm Prone Biopsy System. SPECIMEN A: LESION: Grouped calcifications mid 12:00 position approximately 4 cm superior to old biopsy clip mid right breast. LOCAL ANESTHESIA: 10 mL carbonated 1% lidocaine; 10 mL 1% lidocaine with epinephrine. DERMATOTOMY: Single skin benitez dermatotomy performed. NEEDLE: Suros Eviva 9-gauge vacuum assisted core biopsy device. APPROACH: Lateral medial CORES: 11 CLIP: Suros SecurMark T-shaped marker. SPECIMEN RADIOGRAPH (A): Specimen radiograph x2 is taken in separate room using digital mammography. The index calcifications are in the excised cores. There are over 15 calcifications in the cores. SPECIMEN B: Fresh biopsy supplies are used for 2nd biopsy site. LESION: Grouped calcifications mid 12:00 position slightly closer to the old biopsy clip marker mid right breast. LOCAL ANESTHESIA: 10 mL carbonated 1% lidocaine; 10 mL 1% lidocaine with epinephrine. DERMATOTOMY: Single skin benitez dermatotomy performed. NEEDLE: Suros Eviva 9-gauge vacuum assisted core biopsy device. APPROACH: Lateral medial CORES: 5 CLIP: Suros SecurMark Buckle-shaped marker. SPECIMEN RADIOGRAPH (B): Specimen radiograph is taken in separate room using digital mammography. The index calcifications are in the excised cores. There are over 10 calcifications in the cores. POST PROCEDURE UNILATERAL DIGITAL MAMMOGRAM: The post biopsy mammogram is performed in separate room using separate digital mammography equipment from the biopsy procedure. CC and LM views are obtained. There are scattered areas of fibroglandular density (breast composition category: b). The 2 new clip markers are in position (T-shape and Buckle). There is also a old spool (dumbbell) shaped biopsy clip marker central right breast. The calcifications are markedly decreased at the biopsy sites. No gross hematoma. The patient tolerated the procedure well. No immediate complications. Home instructions reviewed with the patient. Final pathology results are pending. MM/MM stereotactic biopsy RT IMPRESSION: 1. Stereotactically guided core biopsy right breast (Two Sites) with clip placement each site. 2. Specimen radiograph taken for each biopsy site. 3. Post procedure mammogram. There is satisfactory positioning of the biopsy clips. 4. Final pathology results pending. An addendum report will be issued.
[2022-09-11] MEDS: Lidocaine HCl 1 % 20 ML VIAL 9 ML SUBCUT (12:30)
[2022-09-11] MEDS: Sodium Bicarbonate 8.4% 50 MEQ/50 ML VIAL SUBCUT (12:31)
[2022-09-11] MEDS: Lidocaine HCl 1%/Epi 1:100,000 10 ML VIAL SUBCUT (12:34)
== END 2022-09-11 09:53 | disposition home or self-care (01) ==
LOC: HO.MAMMO 09:52
PROVIDERS: PCP Internal Medicine; Visit Provider Surgery
DX: R92.1 Mammographic calcification found on diagnostic imaging of breast (principal)
CPT/HCPCS: 19081; 19082; 88305; 99202; A4648

== ENCOUNTER → 2022-09-18 14:47 | Outpatient (BNVA) | payer OTHER, SELFPAY | PROVIDERS: PCP Internal Medicine; Visit Provider Surgery | DX: R92.1 Mammographic calcification found on diagnostic imaging of breast (principal); Z98.890 Other specified postprocedural states | CPT/HCPCS: 99212 ==

== ENCOUNTER → 2022-09-23 11:07 | Outpatient (BNVA) | payer OTHER, SELFPAY | PROVIDERS: PCP Internal Medicine; Visit Provider Nurse Practitioner | DX: K29.70 Gastritis, unspecified, without bleeding (principal); K20.90 Esophagitis, unspecified without bleeding; K22.70 Barrett's esophagus without dysplasia; K64.8 Other hemorrhoids; K57.30 Diverticulosis of large intestine without perforation or abscess without bleeding; K63.5 Polyp of colon; N18.30 Chronic kidney disease, stage 3 unspecified; Z98.890 Other specified postprocedural states | CPT/HCPCS: 99212 ==

== ENCOUNTER → 2022-11-04 15:17 | Outpatient (BNVA) | payer OTHER, SELFPAY | PROVIDERS: PCP Internal Medicine; Visit Provider Physician Assistant Surgical ==

== ENCOUNTER 2022-12-26 10:10 | Outpatient (AMB) | payer OTHER, SELFPAY ==
--- NOTE | 2022-12-26 10:12 | MHC.OFFVISWM ---
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 Allergies FRANK Inhibitors [FRANK INHIBITORS] Allergy (Unknown, Verified 12/26/22 10:21) PER H&P codeine Allergy (Unknown, Verified 12/26/22 10:21) RASH meperidine Allergy (Unknown, Verified 12/26/22 10:21) RASH morphine Allergy (Unknown, Verified 12/26/22 10:21) RASH, DIFF BREATHING,CHEST PRESSURE, throat swelling From BENADRYL Allergy (Severe, Uncoded 12/26/22 10:21) ANGIOEDEMA From DILAUDID Allergy (Intermediate, Uncoded 12/26/22 10:21) INCREASED BP TAPE,PLASTIC Allergy (Unknown, Uncoded 12/26/22 10:21) RASH HPI HPI Comments History of Present Illness Details Intake Template This is a 57 year old?Danish-speaking woman who is here to obtain information regarding weight loss. Via interpretive services, she stated that she is not sure that she wants surgery but wanted to schedule an appointment with the dietitian. Her goal is to improve her health & obesity-related comorbidities.? She reports first being concerned about her weight 1985 when she moved to the [facility].? She has tried multiple methods of weight loss including without permanent results. 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 N Gluten Sensitivity:? N? Celiac? N PMH: LEANNA, HTN, Renal insuff (CKD 3b requires Lasix), ?Roach's, chronic constipation, Asthma, Hypercholestereolemia, stress incontinence, Vit D deficiency, PSH: 3 umbilical hernia repairs; tubal, lap choly She wakes at:? 11am? bed at: 0100 Breakfast: black coffee w/ Splenda, eggs Lunch: soup, crackers, Dinner: 5-6pm Rice, beans, meat After dinner: Jello, sweetened desserts or yogurt Other snacks: crackers, chips, Liquids: vitamin H2O, Alcohol intake: ?3-4 drinks F/S/S? nicotine: ???denies? marijuana:?denies? drugs:?denies? caffeine: 4 servings/day Exercise: few seated exercises, inconsistent Last mammogram: currernt Last pap smear: control method: tubal EGD & Bx ; Colonoscopy: Dr. Conti 09/09/22 (both endoscopies done) EGD Bx negative for Roach's; hyperplastic polyp on colonoscopy FRANK: 7 ESS: 12 GERD: 6 QOL: 111 The patient is advised that vitamin or protein supplement samples maybe provided by Shyla Rey RD to facilitate care options. [facility] Medical History Urinary incontinence Breast calcification, right Chronic renal insufficiency Asthma Migraine Normal colonoscopy (~12/25/16) Obstructive sleep apnea Benign essential hypertension Diverticulitis Vitamin D deficiency Hypertension Surgical History History of facial surgery History of carpal tunnel repair History of nasal surgery History of ankle surgery (~2012) History of cryosurgery History of pubovaginal sling Hx of hernia repair History of bilateral tubal ligation Hx laparoscopic cholecystectomy (~2001) History of esophagogastroduodenoscopy Hx of colonoscopy Family History Mother High blood pressure Diabetes Arthritis Father Diabetes Kidney disease Heart disease Brother Diabetes Maternal Aunt Cancer of breast Brother Colon cancer, Onset Age: 57 Maternal Grandmother Cancer of breast Social History Household Members: None Housing: Apartment Alcohol intake: current Alcohol intake frequency: a few times a month Alcohol type: wine and hard liquor Patient Tobacco Use Status: Former Tobacco user Quit Date: 2002 Tobacco use type: Cigarette Years Smoked: 7 e-Cigarette/Vaping Use: Never Used Second Hand Smoke Exposure: No service: No Current occupational status: disabled Cognitive needs: No Hearing needs: No Vision needs: Yes Female Reproductive History Menstrual Age of Menarche: 13 Review of Systems Const All systems reviewed & are unremarkable except as noted in HPI and below Reports as per HPI Physical Exam On exam, the patient is in no acute distress She is anicteric She is having no respiratory difficulty Her abdomen is obese with a well-healed midline incision with no evidence of recurrent umbilical hernia Assessment & Plan Assessment & Plan (1) Obesity (BMI 30-39.9): Code(s): E66.9 - Obesity, unspecified (2) Roach's esophagus: Comment: LAST EGD 2018 DUE FOR REPEAT TO SURVEY 2020 OR 2021. AEB Code(s): K22.70 - Roach's esophagus without dysplasia Qualifiers: Roach's esophagus type: without dysplasia Qualified Code(s): K22.70 - Roach's esophagus without dysplasia (3) CKD (chronic kidney disease) stage 3, GFR 30-59 ml/min: Comment: 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, with minimal proteinuria Code(s): N18.30 - Chronic kidney disease, stage 3 unspecified Qualifiers: Chronic kidney disease stage 3 subtype: stage 3b (GFR 30-44) Qualified Code(s): N18.32 - Chronic kidney disease, stage 3b (4) Chronic idiopathic constipation: Code(s): K59.04 - Chronic idiopathic constipation (5) Moderate anxiety: Code(s): F41.9 - Anxiety disorder, unspecified (6) Severe depression: Code(s): F32.2 - Major depressive disorder, single episode, severe without psychotic features (7) LEANNA treated with BiPAP: Code(s): G47.33 - Obstructive sleep apnea (adult) (pediatric) (8) Asthma: Code(s): J45.909 - Unspecified asthma, uncomplicated Qualifiers: Asthma severity: moderate Asthma persistence: persistent Asthma complication type: uncomplicated Qualified Code(s): J45.40 - Moderate persistent asthma, uncomplicated (9) Obstructive sleep apnea: Code(s): G47.33 - Obstructive sleep apnea (adult) (pediatric) Plan The patient noted upfront that she is not sure that she wants to proceed with surgery and requested referral and information regarding her diet. The importance of diet, specifically high-protein and high-fiber/low-carbohydrate low-fat diet was discussed with the patient and handouts were provided. Patient noted she is not sure she wants to make any changes. We did review the importance of a regular schedule and protein replacement and she was provided handouts regarding [employer] protein which is covered by food stamps. The patient is encouraged to try these options if she wants to schedule a follow-up. Patient noted she is more interested in medical weight loss at this time and will be placed on list. Patient requested of an appointment with our dietitian, so a referral was placed. Patient declined follow-up. Orders: Referrals Nutrition/Dietitian Referral E66.9 - Obesity, unspecified, G47.33 - Obstructive sleep apnea (adult) (pediatric), N18.30 - Chronic kidney disease, stage 3 unspecified Coding Level of Care Code New Pt Level 4 (45999) Diagnoses Obesity (BMI 30-39.9) E66.9 Roach's esophagus without dysplasia K22.70 Roach's esophagus type: without dysplasia Stage 3b chronic kidney disease N18.32 Chronic kidney disease stage 3 subtype: stage 3b (GFR 30-44) Chronic idiopathic constipation K59.04 Moderate anxiety F41.9 Severe depression F32.2 LEANNA treated with BiPAP G47.33 Moderate persistent asthma without complication J45.40 Asthma severity: moderate Asthma persistence: persistent Asthma complication type: uncomplicated Obstructive sleep apnea G47.33
[2022-12-26 10:18] VITALS: BP 175/79; PULSE 60; TEMP 36.3; O2SAT 97; BMI 37.8
== END 2022-12-26 11:29 | disposition home or self-care (01) ==
PROVIDERS: PCP Internal Medicine; Visit Provider Surgery
DX: E66.9 Obesity, unspecified (principal); K22.70 Barrett's esophagus without dysplasia; N18.32 Chronic kidney disease, stage 3b; K59.04 Chronic idiopathic constipation; F41.9 Anxiety disorder, unspecified; F32.2 Major depressive disorder, single episode, severe without psychotic features; G47.33 Obstructive sleep apnea (adult) (pediatric); J45.40 Moderate persistent asthma, uncomplicated
CPT/HCPCS: 99204

== ENCOUNTER → 2022-12-26 10:10 | Outpatient (BNVA) | payer OTHER, SELFPAY | PROVIDERS: PCP Internal Medicine; Visit Provider Surgery ==

== ENCOUNTER 2023-01-19 10:49 | Outpatient (AMB) | payer OTHER, SELFPAY ==
[2023-01-19 11:02] VITALS: BP 124/80; PULSE 55; O2SAT 99; BMI 38.4
--- NOTE | 2023-01-19 11:02 | A.OFFPC_ITS ---
Vital Signs 01/19/23 11:02 Height 5 ft 1 in Weight 203 lb BMI 38.4 BP 124/80 Blood Pressure Location Lt brachial Position Sitting Pulse 55 Pulse Source Pulse Oximeter Pulse Oximetry (%) 99 Oxygen Delivery Method Room Air Intake Visit Reasons: 4mth f/u Fluorescent Lighting Model Maker Required: No Accompanied by: Self / Same As Patient Allergies FRANK Inhibitors [FRANK INHIBITORS] Allergy (Unknown, Verified 01/19/23 11:54) PER H&P codeine Allergy (Unknown, Verified 01/19/23 11:54) RASH meperidine Allergy (Unknown, Verified 01/19/23 11:54) RASH morphine Allergy (Unknown, Verified 01/19/23 11:54) RASH, DIFF BREATHING,CHEST PRESSURE, throat swelling From BENADRYL Allergy (Severe, Uncoded 01/19/23 11:54) ANGIOEDEMA From DILAUDID Allergy (Intermediate, Uncoded 01/19/23 11:54) INCREASED BP TAPE,PLASTIC Allergy (Unknown, Uncoded 01/19/23 11:54) RASH Medication List - Last Reconciled 01/19/23 by Daryn Duarte MD [ADULT PULL UPS (medium) As directed - #60 / month (2 pull ups/day) with 12 refills] albuterol sulfate 90 mcg/actuation 2 puffs PO Q4H PRN amlodipine 10 mg PO DAILY [BLADDER PADS (large) As directed - #90/month (3 pads / day), with 12 refills] budesonide-formoterol 160-4.5 mcg/actuation 2 inhalations inhalation BID cholecalciferol (vitamin D3) 25 mcg PO DAILY [CPAP device As directed] dapagliflozin propanediol (Farxiga) 10 mg PO DAILY diclofenac sodium 1% (Arthritis Pain (diclofenac)) 2 grams topical QID PRN furosemide 20 mg PO DAILY lansoprazole 30 mg PO DAILY linaclotide (Linzess) 145 mcg PO QAM 30 days losartan 50 mg PO DAILY magnesium oxide 400 mg PO DAILY rizatriptan 10 mg PO ONCE sennosides (Savanna-dean) 17.2 mg (2 x 8.6 mg) PO BEDTIME simethicone (Gas Relief (simethicone)) 125 mg PO QID PRN tizanidine 2 mg PO BID PRN topiramate 100 mg PO BID Tobacco use date assessed: 01/19/23 Dental Screening Dental Screen Date: 01/19/23 Did you have a dental visit in the last 12 months?: Yes Did you have a dental problem in the last 6 months where you did not have access to dental care?: No Was dental information given to patient?: Patient has dentist HPI 4mth f/u HPI Details Patient comes in today for her follow up visit States that she has been experiencing increased pain over the area just under her left hip for a while now Notes that the pain feels like it goes down her leg often and feels especially worse at night when she is try to sleep Does not recall any recent injury or trauma to her left hip or left leg Adds that she also recently noticed a mass or lump over the left side of her neck and would like to get this checked out further - is concerned that it may be some type of tumor States that she feels okay otherwise She denies any headaches or dizziness Denies any chest pains, no SOB No nausea/vomiting, no abdominal pain No change in bowel habits noted Had some follow up labs done for nephrology on 12/24/22 in [place]; no other follow up labs done recently Would also like to get her flu shot today PFSH Medical History Urinary incontinence Breast calcification, right Chronic renal insufficiency Asthma Migraine Normal colonoscopy (~12/25/16) Obstructive sleep apnea Benign essential hypertension Diverticulitis Vitamin D deficiency Hypertension Surgical History History of facial surgery History of carpal tunnel repair History of nasal surgery History of ankle surgery (~2012) History of cryosurgery History of pubovaginal sling Hx of hernia repair History of bilateral tubal ligation Hx laparoscopic cholecystectomy (~2001) History of esophagogastroduodenoscopy Hx of colonoscopy Family History Mother High blood pressure Diabetes Arthritis Father Diabetes Kidney disease Heart disease Brother Diabetes Maternal Aunt Cancer of breast Brother Colon cancer, Onset Age: 57 Maternal Grandmother Cancer of breast Social History Household Members: None Housing: Apartment Alcohol intake: current Alcohol intake frequency: a few times a month Alcohol type: wine and hard liquor Patient Tobacco Use Status: Former Tobacco user Quit Date: 2002 Tobacco use type: Cigarette Years Smoked: 7 e-Cigarette/Vaping Use: Never Used Second Hand Smoke Exposure: No service: No Current occupational status: disabled Cognitive needs: No Hearing needs: No Vision needs: Yes Female Reproductive History Menstrual Age of Menarche: 13 Questionnaire PHQ-9 Over the last 2 weeks, how often have you been bothered by any of the following problems? 1. Little interest or pleasure in doing things: not at all 2. Feeling down, depressed, or hopeless: not at all 3. Trouble falling or staying asleep, or sleeping too much: not at all 4. Feeling tired or having little energy: not at all 5. Poor appetite or overeating: not at all 6. Feeling bad about yourself - or that you are a failure or have let yourself or your family down: not at all 7. Trouble concentrating on things, such as reading the newspaper or watching television: not at all 8. Moving or speaking so slowly that other people could have noticed. Or the opposite - being so fidgety or restless that you have been moving around a lot more than usual: not at all 9. Thoughts that you would be better off or of hurting yourself in some way: not at all Total score: 0 Depression Screening Interpretation: Negative Depression Screening Done: Yes 63100 - PHQ-9 Billing: Yes Source: Developed by Drs. Loi Fan, Lucia Lua, Trevor Lynch and colleagues, with an educational dion from [employer]. Thrive Questionnaire Date Thrive assessed: 01/19/23 I am a: Patient What is your living situation today?: I have a steady place to live Within the past 12 months, did the food you bought not last and you didn't have the money to get more?: Never true Within the past 12 months, did you worry whether your food would run out before you got money to buy more?: Never true Do you have trouble paying for medicines?: No Do you have trouble getting transportation to medical appointments?: No Do you have trouble paying your heating and electricity bill?: No Do you have trouble taking care of your child, family member or friend?: No Do you have trouble with day-to-day activities such as bathing, preparing meals, shopping, managing finances, etc.?: No Are you currently unemployed and looking for a job?: No Are you interested in more education?: No Please select the resources that you would like help with: None Currently or been in a relationship where the following occur: no concerns re ported AUDIT C Alcohol Use Questionnaire (AUDIT-C) 1. How often do you have a drink containing alcohol?: Never 3. How often do you have six or more drinks on one occasion?: Never Total Score: 0 Score Reviewed/Action Taken: Yes JACOB-7 AMB Questionnaire JACOB-7 Date JACOB - 7 assessed: 01/19/23 Feeling nervous, anxious, or on edge: 0 = Not at all Not being able to stop or control worryin = Not at all Worrying too much about different things: 0 = Not at all Trouble relaxin = Not at all Being so restless that it is hard to sit still: 0 = Not at all Becoming easily annoyed or irritable: 0 = Not at all Feeling afraid as if something awful might happen: 0 = Not at all Total JACOB-7 score (0-4 normal; 5-9 mild; 10-14 moderate; 15-21 severe): 0 Source: Developed by Drs. Loi Fan, Lucia Lua, Trevor Lynch and colleagues, with an educational idon from [employer]. Review of Systems Const Denies chills, Denies fatigue, Denies fever(s) and Denies headache(s) ENT Denies dysphagia, Denies dizziness, Denies otalgia, Denies headache(s), Reports neck mass (on the left side), Denies neck pain, Denies odynophagia and Denies sore throat Card Denies chest pain, Denies rapid heart rate, Denies irregular heart rhythm, Denies palpitations and Denies dyspnea Resp Denies cough, Denies dyspnea and Denies wheezing GI Denies abdominal pain, Denies constipation, Denies dysphagia, Denies heartburn, Denies diarrhea, Denies nausea, Denies odynophagia and Denies vomiting Denies difficulty voiding, Denies nocturia and Denies dysuria Musc Details: (+) pain under the left hip area - see HPI Reports back pain, Denies neck pain and Reports radiating pain into limb (down left leg) Skin/Breast Denies rash Neuro Denies dizziness, Denies headache(s) and Denies paresthesias Psych Denies anxiety Endo Denies fatigue and Denies palpitations Aller/Immun Denies wheezing Physical exam (Primary Care) Vital Signs: Last Vital Signs Pulse 55 01/19/23 11:02 BP 124/80 01/19/23 11:02 Pulse Ox 99 01/19/23 11:02 Oxygen Delivery Method Room Air 01/19/23 11:02 BMI result Body Mass Index 38.4 Tobacco/Smoking Status: Tobacco use Status Tobacco use date assessed 01/19/23 01/19/23 11:04 Patient Tobacco Use Status Former Tobacco user 01/19/23 11:04 Tobacco use type Cigarette 01/19/23 11:04 e-Cigarette/Vaping Use Never Used 01/19/23 11:04 PHQ-9: PHQ-9 Score PHQ-9: Total score 0 01/19/23 11:54 Depression Screening Interpretation: Negative Thrive Assessment: Date of Thrive Assessment Date Thrive assessed 01/19/23 01/19/23 11:15 Currently or been in a relationship where the following occur: no concerns reported Const General: no acute distress and alert HENMT Ears: TM's normal bilaterally and EAC's normal Throat: Yes posterior oropharynx normal and Yes tonsils normal Neck Other: (+) palpable non-tender small nodular lesion over the left side of the neck near the base Neck: Yes no lymphadenopathy and Yes supple Thyroid: Thyroid normal Resp Auscultation: clear to auscultation bilaterally, no rales and no wheezes Cardio Rate: regular rate Rhythm: regular rhythm Heart sounds: no murmurs GI Palpation (GI): Soft to palpation and nontender Auscultation: normal bowel sounds Back/Spine/Pelvis Thoracic/Lumbar Spine: thoracic spinal tenderness (over the lower half of the thoracic spine) Skin Rashes: no rashes Extrem General: No clubbing, No cyanosis and Yes pedal edema (trace edema, bilateral) Left lower extremity: hip/thigh Details: no tenderness Office Procedures Flu Questionnaire Does the patient have a severe egg allergy?: No Does the patient have severe life threatening allergies?: No Does the patient have a fever or illness today?: No Has the patient ever had Guillain-Ernest Syndrome?: No Has the patient ever had any past reaction to a flu shot?: No Immunizations flu vacc [id number] 6mos up(PF) 60 mcg(15 mcgx4)/0.5 mL IM syringe Performing Provider: Daryn Duarte MD [facility] Administered by: Conrad Templeton on 01/19/23 11:23 Dose Route Admin Location Dispensed Lot Number Expiration Date NDC Supervisor Operations 0.5 mL IM Right Deltoid 0.5 mL [id number] 09/27/23 67625-422-05 [employer] VIS Given Date VIS Provided VIS Publication Date 01/19/23 Single Vaccine 20 Eligibility Eligibility Date Funding Source Not [facility] Eligible 01/19/23 Private Assessment and Plan Assessment & Plan (1) Left hip pain: Code(s): M25.552 - Pain in left hip Plan: Will send patient for left hip x-rays CARL for further evaluation (2) Mass of left side of neck: Code(s): R22.1 - Localized swelling, mass and lump, neck Plan: Will send for soft tissue US of the left side of the neck for further evaluation of her current left neck mass/nodule (3) Benign essential hypertension: Code(s): I10 - Essential (primary) hypertension Plan: Reinforced low sodium diet - goal is systolic BP of at least 120 to 130 mm or less, in light of her CKD Continue Losartan 50 mg QD (4) CKD (chronic kidney disease) stage 3, GFR 30-59 ml/min: Comment: 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, with minimal proteinuria Code(s): N18.30 - Chronic kidney disease, stage 3 unspecified Qualifiers: Chronic kidney disease stage 3 subtype: stage 3b (GFR 30-44) Qualified Code(s): N18.32 - Chronic kidney disease, stage 3b Plan: Her renal function initially improved with dose reduction of her Losartan and Furosemide a few months ago but has declined again lately on her recent labs - will continue to monitor her renal function closely Reinforced complete avoidance of NSAIDs and encouraged again to increase her oral fluid intake Follow up with nephrology as scheduled Will recheck her labs in 3 months for follow up (5) Edema: Code(s): R60.9 - Edema, unspecified Qualifiers: Edema type: localized Qualified Code(s): R60.0 - Localized edema Plan: Mostly over both lower extremities - due to lymphedema Continue Furosemide 20 mg QD PRN - dose was lowered by nephrology from 40 mg a few months ago (6) Migraine: Code(s): G43.909 - Migraine, unspecified, not intractable, without status migrainosus Qualifiers: Migraine type: unspecified Status migrainosus presence: without status migrainosus Intractability: not intractable Qualified Code(s): G43.909 - Migraine, unspecified, not intractable, without status migrainosus Plan: Stable on prophylactic Tx with Topiramate 50 mg Q HS Reinforced avoidance of migraine triggers Continue Rizatriptan 10 mg PRN Follow up with neurology as scheduled (7) Asthma: Code(s): J45.909 - Unspecified asthma, uncomplicated Qualifiers: Asthma severity: moderate Asthma persistence: persistent Asthma complication type: uncomplicated Qualified Code(s): J45.40 - Moderate persistent asthma, uncomplicated Plan: Appears stable Continue Symbicort HFA 160-4.5 mcg 2 inhalations BID and Albuterol HFA 2 inhalations Q 6 hours PRN Follow up with [facility] as scheduled (8) Obstructive sleep apnea: Code(s): G47.33 - Obstructive sleep apnea (adult) (pediatric) Plan: Continue using her CPAP device when sleeping at night Follow up with Sleep Medicine as scheduled - now goes to [facility] (9) Chronic idiopathic constipation: Code(s): K59.04 - Chronic idiopathic constipation Plan: Encouraged increased oral fluids and dietary fiber Continue Linzess 145 mcg QD and Senna 8.6 mg 2 tablets QD PRN Follow up with GI as scheduled (10) Roach's esophagus: Comment: LAST EGD 2018 DUE FOR REPEAT TO SURVEY 2020 OR 2021. AEB Code(s): K22.70 - Roach's esophagus without dysplasia Qualifiers: Roach's esophagus type: without dysplasia Qualified Code(s): K22.70 - Roach's esophagus without dysplasia Plan: Reinforced dietary restrictions Continue Famotidine 40 mg QD Follow up with GI as scheduled for continuing surveillance (11) Thoracic spondylosis: Code(s): M47.814 - Spondylosis without myelopathy or radiculopathy, thoracic region Plan: MRI of the thoracic spine done a few months ago revealed mild thoracic kyphosis with slight lower thoracic dextrocurvature and multilevel DDD and spondylosis, with multilevel disc herniations and disc osteophyte complexes without spinal cord impingement or spinal canal stenosis Reinforced activity and weight-lifting restrictions Per request, she was previously referred for physical therapy evaluation and management and states that physical therapy has helped somewhat (12) Urinary incontinence: Code(s): R32 - Unspecified urinary incontinence Qualifiers: Urinary Incontinence type: unspecified incontinence Qualified Code(s): R32 - Unspecified urinary incontinence Plan: Follow up with urology as scheduled (13) Elevated TSH: Code(s): R79.89 - Other specified abnormal findings of blood chemistry Plan: Her free T4 level was normal on her previous labs and patient remains clinically euthyroid; TFTs were not rechecked recently Will continue to monitor her TFTs regularly (14) Obesity (BMI 30-39.9): Code(s): E66.9 - Obesity, unspecified Plan: Reinforced diet/exercise as tolerated/lose weight She was referred to weight management previously and was seen by bariatric surgery last month but as she was more interested in medical weight management rather than surgical, was placed on a list for medical weight management and is currently waiting for appt scheduling Plan Flu vaccine given today Follow up in 3 months Orders: Orders Influenza [id number] Immunization 01/19/23 Z23 - Encounter for immunization Complete Blood Count Auto Diff 3 Months I10 - Essential (primary) hypertension Lipid Panel 3 Months E78.00 - Pure hypercholesterolemia, unspecified XR hip LT min 2V 01/20/23 M25.552 - Pain in left hip Comprehensive [facility]. Panel Fast 3 Months E78.00 - Pure hypercholesterolemia, unspecified US soft tiss head and/or neck 01/19/23 R22.1 - Localized swelling, mass and lump, neck Coding Level of Care Code Est Pt Level 4 (53389) Diagnoses Left hip pain M25.552 Mass of left side of neck R22.1 Benign essential hypertension I10 Stage 3b chronic kidney disease N18.32 Chronic kidney disease stage 3 subtype: stage 3b (GFR 30-44) Localized edema R60.0 Edema type: localized Migraine without status migrainosus, not intractable, unspecified migraine type G43.909 Migraine type: unspecified Status migrainosus presence: without status migrainosus Intractability: not intractable Moderate persistent asthma without complication J45.40 Asthma severity: moderate Asthma persistence: persistent Asthma complication type: uncomplicated Obstructive sleep apnea G47.33 Chronic idiopathic constipation K59.04 Roach's esophagus without dysplasia K22.70 Roach's esophagus type: without dysplasia Thoracic spondylosis M47.814 Urinary incontinence, unspecified type R32 Urinary Incontinence type: unspecified incontinence Elevated TSH R79.89 Obesity (BMI 30-39.9) E66.9
== END 2023-01-19 12:08 | disposition home or self-care (01) ==
PROVIDERS: PCP Internal Medicine; Visit Provider Internal Medicine
DX: Z23 Encounter for immunization (principal)
CPT/HCPCS: 90471; 90686; 99214

== ENCOUNTER 2023-01-20 12:44 | Outpatient (REF) | payer OTHER, SELFPAY ==
--- NOTE | ~2023-01-20 | XR_ITS ---
EXAMINATION: XR LEFT SHOULDER, LEFT ELBOW, LEFT HIP CLINICAL INFORMATION: Pain in left shoulder, left elbow, left hip COMPARISON: Left forearm August 01, 2006 TECHNIQUE: 3 views of the left shoulder. 3 views of the left elbow. 2 views of the left hip. FINDINGS: LEFT SHOULDER: Mild degenerative changes in the left acromioclavicular joint with hypertrophic change. Glenohumeral alignment preserved. Degenerative changes on limited views of the upper thoracic spine. No abnormal soft tissue calcifications identified adjacent to the humeral head. LEFT ELBOW: Elbow is not flexed on lateral view, limiting evaluation. Subtle lucency in the radial head at the articular surface, possibly related to prior trauma versus bony lesion/focal demineralization. Alignment preserved. Left hip: Femoral head well seated in the acetabulum. Moderate degenerative changes left hip with joint space narrowing and hypertrophic change. Small rounded pelvic calcifications are likely vascular. XR/XR hip LT min 2V IMPRESSION: 1. Mild degenerative changes in the left shoulder. 2. Subtle lucency in the radial head at the articular surface, possibly related to prior trauma versus bony lesion/focal demineralization. Correlation with clinical exam recommended to determine further management. Recommend follow-up imaging in 10-14 days if fracture is suspected. 3. Moderate degenerative changes left hip. Additional imaging with CT scan or MRI should be considered for better visualization as these modalities are much more sensitive for detection of fracture or other underlying pathology. This study was presented today 01/21/2023 at 6:40 AM for interpretation. [facility] staff will provide results to referring provider at this time.
--- NOTE | ~2023-01-20 | XR_ITS ---
EXAMINATION: XR LEFT SHOULDER, LEFT ELBOW, LEFT HIP CLINICAL INFORMATION: Pain in left shoulder, left elbow, left hip COMPARISON: Left forearm August 01, 2006 TECHNIQUE: 3 views of the left shoulder. 3 views of the left elbow. 2 views of the left hip. FINDINGS: LEFT SHOULDER: Mild degenerative changes in the left acromioclavicular joint with hypertrophic change. Glenohumeral alignment preserved. Degenerative changes on limited views of the upper thoracic spine. No abnormal soft tissue calcifications identified adjacent to the humeral head. LEFT ELBOW: Elbow is not flexed on lateral view, limiting evaluation. Subtle lucency in the radial head at the articular surface, possibly related to prior trauma versus bony lesion/focal demineralization. Alignment preserved. Left hip: Femoral head well seated in the acetabulum. Moderate degenerative changes left hip with joint space narrowing and hypertrophic change. Small rounded pelvic calcifications are likely vascular. XR/XR elbow LT min 3V IMPRESSION: 1. Mild degenerative changes in the left shoulder. 2. Subtle lucency in the radial head at the articular surface, possibly related to prior trauma versus bony lesion/focal demineralization. Correlation with clinical exam recommended to determine further management. Recommend follow-up imaging in 10-14 days if fracture is suspected. 3. Moderate degenerative changes left hip. Additional imaging with CT scan or MRI should be considered for better visualization as these modalities are much more sensitive for detection of fracture or other underlying pathology. This study was presented today 01/21/2023 at 6:40 AM for interpretation. [facility] staff will provide results to referring provider at this time.
--- NOTE | ~2023-01-20 | XR_ITS ---
EXAMINATION: XR LEFT SHOULDER, LEFT ELBOW, LEFT HIP CLINICAL INFORMATION: Pain in left shoulder, left elbow, left hip COMPARISON: Left forearm August 01, 2006 TECHNIQUE: 3 views of the left shoulder. 3 views of the left elbow. 2 views of the left hip. FINDINGS: LEFT SHOULDER: Mild degenerative changes in the left acromioclavicular joint with hypertrophic change. Glenohumeral alignment preserved. Degenerative changes on limited views of the upper thoracic spine. No abnormal soft tissue calcifications identified adjacent to the humeral head. LEFT ELBOW: Elbow is not flexed on lateral view, limiting evaluation. Subtle lucency in the radial head at the articular surface, possibly related to prior trauma versus bony lesion/focal demineralization. Alignment preserved. Left hip: Femoral head well seated in the acetabulum. Moderate degenerative changes left hip with joint space narrowing and hypertrophic change. Small rounded pelvic calcifications are likely vascular. XR/XR shoulder LT min 2V IMPRESSION: 1. Mild degenerative changes in the left shoulder. 2. Subtle lucency in the radial head at the articular surface, possibly related to prior trauma versus bony lesion/focal demineralization. Correlation with clinical exam recommended to determine further management. Recommend follow-up imaging in 10-14 days if fracture is suspected. 3. Moderate degenerative changes left hip. Additional imaging with CT scan or MRI should be considered for better visualization as these modalities are much more sensitive for detection of fracture or other underlying pathology. This study was presented today 01/21/2023 at 6:40 AM for interpretation. [facility] staff will provide results to referring provider at this time.
[2023-01-20 13:05] LABS: MANUAL DIFF FLAG NO
[2023-01-20 13:59] LABS: Basophils Absolute Auto 0.1 X10*3/uL (0.0-0.2); Basophils Percent Auto 0.8 % (0-2); Eosinophils Absolute Auto 0.2 X10*3/uL (0.0-0.4); Eosinophils Percent Auto 3.6 % (0-4); Hematocrit 44.2 % (37.0-47.0); Imm Gran Abs Auto 0.01 X10*3/uL (0.00-0.03); Imm Gran Pct Auto 0.2 % (0.0-0.4); Lymphocytes Absolute Auto 1.6 X10*3/uL (1.2-4.9); Lymphocytes Percent Auto 25.1 % (20-40); Mean Corpuscular HGB Conc 31.7 g/dl (31.0-35.0); Mean Corpuscular Hemoglobin 28.9 pg (27.0-33.0); Mean Corpuscular Volume 91.3 fL (80.0-98.0); Mean Platelet Volume 10.5 fL (9.4-12.3); Monocytes Absolute Auto 0.4 X10*3/uL (0.1-1.2); Monocytes Percent Auto 5.7 % (2-11); Neutrophils Absolute Auto 4.1 x10*3/uL (2.0-8.3); Neutrophils Percent Auto 64.6 % (45-73); Platelet Count 243 X10*3/uL (160-400); Red Blood Count 4.84 X10*6/uL (4.20-5.50); Red Cell Distribution Width 13.9 % (11.0-16.0); White Blood Count 6.3 X10*3/uL (4.8-10.8)
[2023-01-20 14:21] LABS: Appearance Urine Clear; Color Urine Yellow; Glucose Urine UA 250 mg/dL (Negative); Leukocyte Esterase Urine Negative (Negative); Nitrite Urine Negative (Negative); PH 5.5 (5.0-9.0); Specific Gravity - Urine 1.015 (1.005-1.025); UMIC TRIGGER UACC YES; Urine Blood Small (1+) (Negative); Urine Ketones Negative (Negative); Urine Protein 300 (3+) mg/dL (Neg-Trace)
[2023-01-20 14:30] LABS: Bacteria Urine None Seen (None Seen); Hyaline Casts Urine 0-2 /LPF (0-2); RBC Urine 0-2 /HPF (0-2); WBC Urine 0-5 /HPF (0-5)
[2023-01-20 14:50] LABS: Alanine Aminotransferase 13 U/L (0-31); Alkaline Phosphatase 83 U/L (39-117); Anion Gap 16 (12-20); Aspartate Amino Transferase 13 U/L (5-31); Bilirubin Total 0.4 mg/dL (0.0-1.0); Blood Urea Nitrogen 23 mg/dL (9-16); Calcium 9.6 mg/dL (8.4-10.2); Carbon Dioxide 23 mmol/L (22-29); Chloride 109 mmol/L (96-108); Cholesterol 199 mg/dL (<200); Estimated Glomerular Filt Rate 34; Glucose Fasting 93 mg/dL (60-99); HDL Cholesterol 59 mg/dL (>40); LDL Cholesterol Calculated 120 mg/dL (<100); Potassium 4.2 mmol/L (3.3-5.1); Sodium 144 mmol/L (135-145); Total Protein 7.1 g/dL (6.5-8.0); Triglycerides 101 mg/dL (<150)
[2023-01-20 15:09] LABS: Free T4 (Free Thyroxine) 0.88 ng/dL (0.71-1.85); TSH reflex Free T4 3.24 uIU/mL (0.32-4.0); Thyroid Stimulating Hormone 3.24 uIU/mL (0.32-4.0); Vitamin D 25-OH Total 32.9 ng/mL (>30)
== END 2023-01-20 12:45 | disposition home or self-care (01) ==
LOC: HO.XRAY 12:44
PROVIDERS: PCP Internal Medicine; Visit Provider Internal Medicine
DX: M25.522 Pain in left elbow (principal); M25.512 Pain in left shoulder; M25.552 Pain in left hip; I10 Essential (primary) hypertension; E78.00 Pure hypercholesterolemia, unspecified; R94.6 Abnormal results of thyroid function studies; E55.9 Vitamin D deficiency, unspecified; Z71.3 Dietary counseling and surveillance
CPT/HCPCS: 36415; 73030; 73080; 73502; 80053; 80061; 81001; 82306; 84439; 84443; 85025; 97802

== ENCOUNTER 2023-02-17 13:11 | Outpatient (REF) | payer OTHER, SELFPAY ==
--- NOTE | ~2023-02-17 | US_ITS ---
EXAMINATION: US SOFT TISSUE NECK CLINICAL INFORMATION: Mass on left side of neck. COMPARISON: None available. TECHNIQUE: Ultrasound of the neck soft tissues is performed with high- frequency anders-scale imaging and color Doppler. FINDINGS: Targeted ultrasound images were obtained by the bias cutting machine operator of the area of concern as indicated by the patient in the left neck. Radiologist was not in attendance. Images were later provided for interpretation. Multiple lymph nodes are identified in the area of concern indicated by the patient in the left neck, largest atypical 0.8 x 0.4 x 0.6 cm with no discrete echogenic hilum and 0.9 x 0.5 x 0.5 cm with echogenic hilum and borderline cortical thickening. US/US soft tiss head and/or neck IMPRESSION: Multiple lymph nodes in the area of concern indicated by the patient in the left neck including a 0.8 cm atypical node and a 0.9 cm borderline node. Decisions regarding further imaging, treatment or biopsy should be based on the clinical assessment. Recommend follow-up ultrasound in 3 months.
== END 2023-02-17 13:12 | disposition home or self-care (01) ==
LOC: HO.US 13:11
PROVIDERS: PCP Internal Medicine; Visit Provider Internal Medicine
DX: R22.1 Localized swelling, mass and lump, neck (principal)
CPT/HCPCS: 76536

== ENCOUNTER 2023-04-09 12:56 | Outpatient (REF) | payer OTHER, SELFPAY ==
--- NOTE | ~2023-04-09 | MM_ITS ---
EXAMINATION: MM DIAGNOSTIC DIGITAL BREAST TOMOSYNTHESIS, BILATERAL CLINICAL INFORMATION: Follow-up right breast calcifications status post 2 site right benign stereotactic biopsy (09/11/2022) both showing Benign columnar cell hyperplasia with calcifications. There are several right-sided groups of calcifications remaining. COMPARISON: Mammography: 04/13/2022 (2 site right stereotactic biopsy), 04/10/2022, 04/08/2022, 03/26/2022, 03/21/2021, and dating back to 2019. TECHNIQUE: Digital breast tomosynthesis is performed in both the craniocaudal and mediolateral oblique views along with computer-aided detection (CAD). Synthesized 2D images are generated from the tomosynthesis. In addition, 2-D spot magnification right cc views x2, and right ML views x1 were also included. FINDINGS: There are scattered areas of fibroglandular density (ACR BI-RADS breast composition Category b). There are 3 post benign biopsy clips in the central slightly lateral and upper right breast. There are at least 6 additional groups of microcalcifications in the central right breast, anterior to the biopsy clips, all with similar morphology containing very fine punctate minimally pleomorphic microcalcifications which resemble a fingerprint . Given morphology of the previous biopsied calcifications was very similar, and is likely these also represent same benign etiology of columnar cell change with calcifications. We will observe these calcifications in 6 months with diagnostic mammography, utilizing standard right magnification views. Otherwise, no masses, areas of architectural distortion, or suspicious left-sided calcifications are identified. No skin or axillary abnormalities are noted. MM/MM tomosynthesis diagnostic BI IMPRESSION: There are no findings suspicious for malignancy in either breast. There are several residual probably benign groups of right sided central breast calcifications, which have morphology very similar to the recently biopsied 2 groups of calcifications 09/11/2022, both yielding columnar cell hyperplasia with calcifications. Hence, the residual groups are most likely the same underlying etiology and are probably benign. Six-month follow-up recommended with standard right magnification views to ensure no aggressive changes. ASSESSMENT: BI-RADS BI-RADS 3 - Probably benign finding(s) - 6 month follow-up suggested RECOMMENDATION: 6 Month F/U Results were provided to the patient at time of visit by the technologist. This patient's information was entered into a reminder system with a target due date for their next mammogram.
== END 2023-04-09 12:57 | disposition home or self-care (01) ==
LOC: HO.MAMMO 12:56
PROVIDERS: PCP Internal Medicine; Visit Provider Surgery
DX: R92.1 Mammographic calcification found on diagnostic imaging of breast (principal)
CPT/HCPCS: 77062; 77066

== ENCOUNTER → 2023-04-09 13:30 | Outpatient (BNV) | payer OTHER, SELFPAY | PROVIDERS: PCP Internal Medicine; Visit Provider Radiology Diagnostic Radiology | DX: R92.1 Mammographic calcification found on diagnostic imaging of breast (principal) | CPT/HCPCS: 77062; 77066 ==

== ENCOUNTER 2023-04-22 13:21 | Outpatient (AMB) | payer OTHER, SELFPAY ==
[2023-04-22 13:24] VITALS: BP 128/84; PULSE 57; O2SAT 97; BMI 38.2
--- NOTE | 2023-04-22 13:24 | HO.NEPHOV ---
HPI HPI Comments History of Present Illness Details Middle-aged woman with history of obesity and hypertension with proteinuria and CKD. She has biopsy-proven FSGS. Biopsy was done more than 15 years ago. Serum creatinine fluctuates between 1.5 minutes 1.8 mg/dL. Recently she was started on Farxiga by another senior java programmer analyst. She continues to experience knee pain. She also has history of constipation for which she is on Linzess. Today she has no shortness of breath. No nausea vomiting. No edema. No urinary symptoms. Recently she underwent ultrasound of the neck which showed multiple lymph nodes. She is waiting for further follow-up [facility] Medical History Urinary incontinence Breast calcification, right Chronic renal insufficiency Asthma Migraine Normal colonoscopy (~12/25/16) Obstructive sleep apnea Benign essential hypertension Diverticulitis Vitamin D deficiency Hypertension Surgical History History of facial surgery History of carpal tunnel repair History of nasal surgery History of ankle surgery (~2012) History of cryosurgery History of pubovaginal sling Hx of hernia repair History of bilateral tubal ligation Hx laparoscopic cholecystectomy (~2001) History of esophagogastroduodenoscopy Hx of colonoscopy Family History Mother High blood pressure Diabetes Arthritis Father Diabetes Kidney disease Heart disease Brother Diabetes Maternal Aunt Cancer of breast Brother Colon cancer, Onset Age: 57 Maternal Grandmother Cancer of breast Social History Household Members: None Housing: Apartment Alcohol intake: current Alcohol intake frequency: a few times a month Alcohol type: wine and hard liquor Patient Tobacco Use Status: Former Tobacco user Quit Date: 2002 Tobacco use type: Cigarette Years Smoked: 7 e-Cigarette/Vaping Use: Never Used Second Hand Smoke Exposure: No service: No Current occupational status: disabled Cognitive needs: No Hearing needs: No Vision needs: Yes Female Reproductive History Menstrual Age of Menarche: 13 Vital Signs 04/22/23 13:24 Height 5 ft 1 in Weight 202 lb 4 oz BMI 38.2 BP 128/84 Blood Pressure Location Lt brachial Position Sitting Pulse 57 Pulse Source Pulse Oximeter Pulse Oximetry (%) 97 Oxygen Delivery Method Room Air Physical Exam Vital Signs: Last Vital Signs Pulse 57 04/22/23 13:24 BP 128/84 04/22/23 13:24 Pulse Ox 97 04/22/23 13:24 Oxygen Delivery Method Room Air 04/22/23 13:24 BMI result Body Mass Index 38.2 Const General: comfortable Nutritional Appearance: well nourished Orientation/consciousness: patient oriented x3 HEENT Head: No normal to inspection Mouth: moist mucous membranes Neck Neck: Yes supple and Yes no JVD Resp Auscultation: clear to auscultation bilaterally, no rales and rub present Cardio Jugular venous distension: no JVD Palpation: no palpable S3 and no palpable S4 Heart sounds: no rubs GI Palpation (GI): Soft to palpation and nontender Percussion: No Fluid wave present General: Yes no CVA tenderness Back/Spine/Pelvis Back: no CVA tenderness Skin General skin exam: no rashes or lesions noted Neuro General: patient oriented x3 Extrem General: Yes no pedal edema and No clubbing Assessment & Plan Assessment & Plan (1) CKD (chronic kidney disease) stage 3, GFR 30-59 ml/min: Comment: 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, with minimal proteinuria Code(s): N18.30 - Chronic kidney disease, stage 3 unspecified Qualifiers: Chronic kidney disease stage 3 subtype: stage 3b (GFR 30-44) Qualified Code(s): N18.32 - Chronic kidney disease, stage 3b Plan: She is CKD 3 creatinine Creatinine fluctuates between 1.51.8 Goal slow the portion disease. Maintain losartan for renal protection Continue to avoid nephrotoxic agents including NSAIDs Discussed weight loss and blood pressure control (2) Hypertension: Code(s): I10 - Essential (primary) hypertension Plan: Blood pressure well controlled Continue with losartan No kidney medications (3) Obesity (BMI 30-39.9): Code(s): E66.9 - Obesity, unspecified Plan: We had a lengthy discussion about weight loss She could try baseline medications including Ozempic I will defer this to PCP The meantime encouraged her to increase physical activity and decreasing calorie intake Plan Other problems include cervical lymph nodes which require further workup Orders: Orders Complete Blood Count no Diff 3 Months N18.30 - Chronic kidney disease, stage 3 unspecified Comprehensive Met. Panel 3 Months N18.30 - Chronic kidney disease, stage 3 unspecified Coding Level of Care Code Est Pt Level 4 (80108) Diagnoses Stage 3b chronic kidney disease N18.32 Chronic kidney disease stage 3 subtype: stage 3b (GFR 30-44) Hypertension I10 Obesity (BMI 30-39.9) E66.9 Results Reviewed Results Reviewed: Recent creatinine was 1.8 Nephrology Results: Hgb 14.0 g/dl (12.0-16.0) 01/20/23 WBC 6.3 X10*3/uL (4.8-10.8) 01/20/23 Plt Count 243 X10*3/uL (160-400) 01/20/23 Sodium 144 mmol/L (135-145) 01/20/23 Potassium 4.2 mmol/L (3.3-5.1) 01/20/23 Chloride 109 mmol/L (96-108) H 01/20/23 Carbon Dioxide 23 mmol/L (22-29) 01/20/23 BUN 23 mg/dL (9-16) H 01/20/23 Creatinine 1.57 mg/dL (0.5-1.4) H 01/20/23 Calcium 9.6 mg/dL (8.4-10.2) 01/20/23 Urine Protein 300 (3+) mg/dL (Neg-Trace) H 01/20/23
== END 2023-04-22 13:56 | disposition home or self-care (01) ==
PROVIDERS: PCP Internal Medicine; Visit Provider Internal Medicine Hypertension Specialist
DX: N18.32 Chronic kidney disease, stage 3b (principal); I10 Essential (primary) hypertension; E66.9 Obesity, unspecified
CPT/HCPCS: 99214

== ENCOUNTER → 2023-04-22 13:21 | Outpatient (BNVA) | payer OTHER, SELFPAY | PROVIDERS: PCP Internal Medicine; Visit Provider Internal Medicine Hypertension Specialist | DX: I12.9 Hypertensive chronic kidney disease with stage 1 through stage 4 chronic kidney disease, or unspecified chronic kidney disease (principal); N18.32 Chronic kidney disease, stage 3b; E66.9 Obesity, unspecified | CPT/HCPCS: 99212 ==

== ENCOUNTER 2023-05-12 10:43 | Outpatient (AMB) | payer OTHER, SELFPAY ==
--- NOTE | 2023-05-12 10:43 | A.OFFPC_ITS ---
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: No Accompanied by: Self / Same As Patient Allergies diphenhydramine [From Benadryl] Allergy (Severe, Verified 05/12/23 11:45) Angioedema hydromorphone [From Dilaudid] Allergy (Intermediate, Verified 05/12/23 11:45) Increased BP FRANK Inhibitors [FRANK INHIBITORS] Allergy (Unknown, Verified 05/12/23 11:45) PER H&P codeine Allergy (Unknown, Verified 05/12/23 11:45) Rash meperidine Allergy (Unknown, Verified 05/12/23 11:45) Rash morphine Allergy (Unknown, Verified 05/12/23 11:45) RASH, DIFF BREATHING,CHEST PRESSURE, throat swelling TAPE,PLASTIC Allergy (Unknown, Uncoded 05/12/23 11:45) Rash Medication List - Last Reconciled 05/12/23 by Daryn Duarte MD [ADULT PULL UPS (medium) As directed - #60 / month (2 pull ups/day) with 12 refills] albuterol sulfate 90 mcg/actuation 2 puffs PO Q4H PRN amitriptyline 10 mg PO BEDTIME amlodipine 10 mg PO DAILY [bladder pads As directed - #90/month (3 pads / day), with 12 refills] budesonide-formoterol 160-4.5 mcg/actuation 2 inhalations inhalation BID cholecalciferol (vitamin D3) 25 mcg PO DAILY [CPAP device As directed] dapagliflozin propanediol (Farxiga) 10 mg PO DAILY diclofenac sodium 1% (Arthritis Pain (diclofenac)) 2 grams topical QID PRN [foot pedal As directed] furosemide 20 mg PO DAILY [incontinence wipes As directed] lansoprazole 30 mg PO DAILY linaclotide (Linzess) 145 mcg PO QAM losartan 50 mg PO DAILY magnesium oxide 400 mg PO DAILY rizatriptan 10 mg PO ONCE sennosides (Savanna-dean) 17.2 mg (2 x 8.6 mg) PO BEDTIME simethicone (Gas Relief (simethicone)) 125 mg PO QID PRN tizanidine 2 mg PO BID PRN topiramate 100 mg PO BID trospium ER 60 mg PO DAILY Tobacco use date assessed: 01/19/23 Dental Screening Dental Screen Date: 05/12/23 Did you have a dental visit in the last 12 months?: Yes Did you have a dental problem in the last 6 months where you did not have access to dental care?: No Was dental information given to patient?: Patient has dentist HPI CKD, left neck mass, HTN, [phone] 2 HPI Details Patient's follow-up visit / consultation today is done over the phone - this is a Telehealth visit Patient's current medications have been reviewed and verified with patient and / or caregiver / proxy and have been updated accordingly in the medication list Patient currently has a few issues that she would like to have addressed States that she has been experiencing recurrent left sciatica (pain) for the past few days - thinks that she may have pulled something recently while working out Also needs to get a repeat neck US to follow up on the mass on the left side of her neck, which she states is about the same size as it was a few months ago Her initial US done in January 2023 revealed (+) multiple lymph nodes in the area of concern indicated by the patient in the left neck including a 0.8 cm atypical node and a 0.9 cm borderline node and she was recommended to get a follow-up ultrasound in 3 months Relates that she was seen by Dr. Stack a few months ago for consultation for weight loss but she is very hesitant to proceed with the surgical / bariatric option and she was referred instead to the medical weight loss side instead States that she talked to her anti air warfare operations officer a few weeks ago to see if it is safe for her to try some of the newer injectable medications like Ozempic to help her lose weight and she was advised to speak to her PCP about this instead States that she would like to try these to help her lose weight if possible She denies any headaches or dizziness Denies any chest pains, no SOB No nausea/vomiting, no abdominal pain No change in bowel habits noted Had her most recent follow up labs done back in December 2022 after her last visit - would like to know how she did on her labs Adds that [facility] has requested for Rx for her CPAP device and commode faxed to them as soon as possible [facility] Medical History Urinary incontinence Breast calcification, right Chronic renal insufficiency Asthma Migraine Normal colonoscopy (~09/28/17) Obstructive sleep apnea Benign essential hypertension Diverticulitis Vitamin D deficiency Hypertension Surgical History History of facial surgery History of carpal tunnel repair History of nasal surgery History of ankle surgery (~2012) History of cryosurgery History of pubovaginal sling Hx of hernia repair History of bilateral tubal ligation Hx laparoscopic cholecystectomy (~2001) History of esophagogastroduodenoscopy Hx of colonoscopy Family History Mother High blood pressure Diabetes Arthritis Father Diabetes Kidney disease Heart disease Brother Diabetes Maternal Aunt Cancer of breast Brother Colon cancer, Onset Age: 57 Maternal Grandmother Cancer of breast Social History Household Members: None Housing: Apartment Alcohol intake: current Alcohol intake frequency: a few times a month Alcohol type: wine and hard liquor Patient Tobacco Use Status: Former Tobacco user Quit Date: 2002 Tobacco use type: Cigarette Years Smoked: 7 e-Cigarette/Vaping Use: Never Used Second Hand Smoke Exposure: No service: No Current occupational status: disabled Cognitive needs: No Hearing needs: No Vision needs: Yes Female Reproductive History Menstrual Age of Menarche: 13 Questionnaire PHQ-9 Over the last 2 weeks, how often have you been bothered by any of the following problems? 1. Little interest or pleasure in doing things: not at all 2. Feeling down, depressed, or hopeless: not at all 3. Trouble falling or staying asleep, or sleeping too much: not at all 4. Feeling tired or having little energy: not at all 5. Poor appetite or overeating: not at all 6. Feeling bad about yourself - or that you are a failure or have let yourself or your family down: not at all 7. Trouble concentrating on things, such as reading the newspaper or watching television: not at all 8. Moving or speaking so slowly that other people could have noticed. Or the opposite - being so fidgety or restless that you have been moving around a lot more than usual: not at all 9. Thoughts that you would be better off or of hurting yourself in some way: not at all Total score: 0 Depression Screening Interpretation: Negative Depression Screening Done: Yes 12303 - PHQ-9 Billing: Yes Source: Developed by Drs. Loi Fan, Lucia Lua, Trevor Lynch and colleagues, with an educational dion from [employer]. Thrive Questionnaire Date Thrive assessed: 05/12/23 I am a: Patient What is your living situation today?: I have a steady place to live Within the past 12 months, did the food you bought not last and you didn't have the money to get more?: Never true Within the past 12 months, did you worry whether your food would run out before you got money to buy more?: Never true Do you have trouble paying for medicines?: No Do you have trouble getting transportation to medical appointments?: No Do you have trouble paying your heating and electricity bill?: No Do you have trouble taking care of your child, family member or friend?: No Do you have trouble with day-to-day activities such as bathing, preparing meals, shopping, managing finances, etc.?: No Are you currently unemployed and looking for a job?: No Are you interested in more education?: No Please select the resources that you would like help with: None Currently or been in a relationship where the following occur: no concerns reported THRIVE Score: 0 AUDIT C Alcohol Use Questionnaire (AUDIT-C) 1. How often do you have a drink containing alcohol?: Never 3. How often do you have six or more drinks on one occasion?: Never Total Score: 0 Score Reviewed/Action Taken: Yes JACOB-7 AMB Questionnaire JACOB-7 Date JACOB - 7 assessed: 05/12/23 Feeling nervous, anxious, or on edge: 0 = Not at all Not being able to stop or control worryin = Not at all Worrying too much about different things: 0 = Not at all Trouble relaxin = Not at all Being so restless that it is hard to sit still: 0 = Not at all Becoming easily annoyed or irritable: 0 = Not at all Feeling afraid as if something awful might happen: 0 = Not at all Total JACOB-7 score (0-4 normal; 5-9 mild; 10-14 moderate; 15-21 severe): 0 Source: Developed by Drs. Loi Fan, Lucia Lua, Trevor Lynch and colleagues, with an educational dion from [employer]. Review of Systems Const Denies chills, Denies fatigue, Denies fever(s) and Denies headache(s) ENT Denies dysphagia, Denies dizziness, Denies otalgia, Denies headache(s), Reports neck mass (on the left side), Denies neck pain, Denies odynophagia and Denies sore throat Card Denies chest pain, Denies rapid heart rate, Denies irregular heart rhythm, Denies palpitations and Denies dyspnea Resp Denies cough, Denies dyspnea and Denies wheezing GI Denies abdominal pain, Denies constipation, Denies dysphagia, Denies heartburn, Denies diarrhea, Denies nausea, Denies odynophagia and Denies vomiting Denies difficulty voiding, Denies nocturia, Denies dysuria and Reports urinary incontinence Musc Reports back pain (more on the left side), Denies neck pain and Reports radiating pain into limb (down left leg) Skin/Breast Denies rash Neuro Denies dizziness, Denies headache(s) and Denies paresthesias Psych Denies anxiety Endo Denies fatigue and Denies palpitations Aller/Immun Denies wheezing Physical exam (Primary Care) Vital Signs: Physical examination is not performed as visit / consultation today is done over the phone - Telehealth visit All physical findings indicated here, if present, are as per patient's and / or caregivers / proxy's report Tobacco/Smoking Status: Tobacco use Status Tobacco use date assessed 01/19/23 05/12/23 10:46 Patient Tobacco Use Status Former Tobacco user 05/12/23 10:46 Tobacco use type Cigarette 05/12/23 10:46 e-Cigarette/Vaping Use Never Used 05/12/23 10:46 PHQ-9: PHQ-9 Score PHQ-9: Total score 0 05/12/23 12:44 Depression Screening Interpretation: Negative Thrive Assessment: Date of Thrive Assessment Date Thrive assessed 05/12/23 05/12/23 10:46 Currently or been in a relationship where the following occur: no concerns reported Telehealth Telehealth Location of provider rendering services: practice address Location of patient: address on file Patient Identification confirmed using: Name, : Yes Telehealth method: voice only Patient verbally consented to treatment: Yes Patient verbally consented to billing insurance company: Yes Patient informed of any privacy concerns related to visit: Yes Minutes spent on Phone/Video with Pt.: 24 Results Reviewed Results Reviewed: Laboratory Tests 01/20/23 01/20/23 12:50 13:03 WBC 6.3 Hgb 14.0 Hct 44.2 Plt Count 243 Sodium 144 Potassium 4.2 Creatinine 1.57 H Estimated GFR 34 Fasting Glucose 93 Calcium 9.6 AST 13 ALT 13 Triglycerides 101 Cholesterol 199 LDL Cholesterol, Calc 120 H HDL Cholesterol 59 25-OH Vitamin D Total 32.9 TSH 3.24 Free T4 0.88 Ur Specific [place] 1.015 Urine Protein 300 (3+) H Urine Glucose (UA) 250 H Urine Blood Small (1+) H Urine Nitrite Negative Ur Leukocyte Esterase Negative Assessment and Plan Assessment & Plan (1) Left-sided low back pain with sciatica: Code(s): M54.42 - Lumbago with sciatica, left side Qualifiers: Chronicity: acute Sciatica laterality: sciatica of left side Qualified Code(s): M54.42 - Lumbago with sciatica, left side Plan: Will send patient for x-rays of the lumbar spine and SI joints CARL for further evaluation Advised that if her x-rays are unremarkable, will consider referring her to physical therapy (2) Mass of left side of neck: Code(s): R22.1 - Localized swelling, mass and lump, neck Plan: Soft tissue US of the left side of the neck done a few months ago revealed (+) multiple lymph nodes in the area of concern indicated by the patient in the left neck including a 0.8 cm atypical node and a 0.9 cm borderline node. Recommend follow-up ultrasound in 3 months Patient states that her left neck mass seems to be the same and has not changed much over the past few months Will now send her for follow up soft tissue US of her left neck mass Discussed that depending on how her US comes out, may need to consider referring her to ENT for further management (3) Benign essential hypertension: Code(s): I10 - Essential (primary) hypertension Plan: Reinforced low sodium diet - goal is systolic BP of at least 120 to 130 mm or less, in light of her CKD Continue Losartan 50 mg QD (4) CKD (chronic kidney disease) stage 3, GFR 30-59 ml/min: Comment: 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, with minimal proteinuria Code(s): N18.30 - Chronic kidney disease, stage 3 unspecified Qualifiers: Chronic kidney disease stage 3 subtype: stage 3b (GFR 30-44) Qualified Code(s): N18.32 - Chronic kidney disease, stage 3b Plan: Her renal function initially improved with dose reduction of her Losartan and Furosemide last year but has declined again a few months ago - her numbers appear to have stabilized again on her recent labs done back in December 2022 - will continue to monitor her renal function closely Reinforced complete avoidance of NSAIDs and encouraged again to increase her oral fluid intake Follow up with nephrology as scheduled Will recheck her labs in 3 months for follow up (5) Edema: Code(s): R60.9 - Edema, unspecified Qualifiers: Edema type: localized Qualified Code(s): R60.0 - Localized edema Plan: Mostly over both lower extremities - due to lymphedema Continue Furosemide 20 mg QD PRN - dose was lowered by nephrology from 40 mg a few months ago (6) Migraine: Code(s): G43.909 - Migraine, unspecified, not intractable, without status migrainosus Qualifiers: Intractability: not intractable Migraine type: unspecified Status migrainosus presence: without status migrainosus Qualified Code(s): G43.909 - Migraine, unspecified, not intractable, without status migrainosus Plan: Stable on prophylactic Tx with Topiramate 50 mg Q HS Reinforced avoidance of migraine triggers Continue Rizatriptan 10 mg PRN Follow up with neurology as scheduled (7) Asthma: Code(s): J45.909 - Unspecified asthma, uncomplicated Qualifiers: Asthma complication type: uncomplicated Asthma persistence: persistent Asthma severity: moderate Qualified Code(s): J45.40 - Moderate persistent asthma, uncomplicated Plan: Appears stable Continue Symbicort HFA 160-4.5 mcg 2 inhalations BID and Albuterol HFA 2 inhalations Q 6 hours PRN Follow up with [facility] as scheduled (8) Obstructive sleep apnea: Code(s): G47.33 - Obstructive sleep apnea (adult) (pediatric) Plan: Continue using her CPAP device when sleeping at night Follow up with Sleep Medicine as scheduled - now goes to [facility] Per request, Rx for a new/replacement CPAP device made and printed out for patient - Rx will be faxed over to [facility] as requested (9) Chronic idiopathic constipation: Code(s): K59.04 - Chronic idiopathic constipation Plan: Encouraged increased oral fluids and dietary fiber Continue Linzess 145 mcg QD and Senna 8.6 mg 2 tablets QD PRN Follow up with GI as scheduled (10) Roach's esophagus: Comment: LAST EGD 2018 DUE FOR REPEAT TO SURVEY 2020 OR 2021. AEB Code(s): K22.70 - Roach's esophagus without dysplasia Qualifiers: Roach's esophagus type: without dysplasia Qualified Code(s): K22.70 - Roach's esophagus without dysplasia Plan: Reinforced dietary restrictions Continue Famotidine 40 mg QD Follow up with GI as scheduled for continuing surveillance (11) Thoracic spondylosis: Code(s): M47.814 - Spondylosis without myelopathy or radiculopathy, thoracic region Plan: MRI of the thoracic spine done last year revealed mild thoracic kyphosis with slight lower thoracic dextrocurvature and multilevel DDD and spondylosis, with multilevel disc herniations and disc osteophyte complexes without spinal cord impingement or spinal canal stenosis Reinforced activity and weight-lifting restrictions Patient states that physical therapy has helped somewhat in the past and will refer her as needed (12) Elevated TSH: Code(s): R79.89 - Other specified abnormal findings of blood chemistry Plan: Her free T4 level was normal on her previous labs and patient remains clinically euthyroid Will continue to monitor her TFTs regularly (13) Urinary incontinence: Code(s): R32 - Unspecified urinary incontinence Qualifiers: Urinary Incontinence type: unspecified incontinence Qualified Code(s): R32 - Unspecified urinary incontinence Plan: Follow up with urology as scheduled Per request, Rx for Bedside commode provided (14) Obesity (BMI 30-39.9): Code(s): E66.9 - Obesity, unspecified Plan: Reinforced diet/exercise as tolerated/lose weight She was referred to weight management previously and was seen by bariatric surgery last month but as she was more interested in medical weight management rather than surgical, was placed on a list for medical weight management States that she was seen a couple of months ago and was given some materials to read and go over to help her lose weight Follow up with weight management as scheduled Have advised patient that with her compromised renal function, as meds like Ozempic and Wegovy are cleared or excreted renally, I would not really recommend these for her at this time Plan Follow up in 3 months Orders: Orders XR lumbar spine 2-3V 05/12/23 M54.42 - Lumbago with sciatica, left side US soft tiss head and/or neck 05/12/23 R22.1 - Localized swelling, mass and lump, neck Lipid Panel 3 Months E78.00 - Pure hypercholesterolemia, unspecified Comprehensive Artemas. Panel Fast 3 Months E78.00 - Pure hypercholesterolemia, unspecified XR sacroiliac joint min 3V 05/12/23 M54.42 - Lumbago with sciatica, left side Complete Blood Count Auto Diff 3 Months D64.9 - Anemia, unspecified TSH reflex Free T4 3 Months E78.00 - Pure hypercholesterolemia, unspecified UA CC w/rflx Micro + Cult 3 Months R30.0 - Dysuria Vitamin D 25-OH Total 3 Months E55.9 - Vitamin D deficiency, unspecified Medications: New [BEDSIDE COMMODE] As directed 1 ea 0RF urinary incontinence R32 - Unspecified urinary incontinence Changed From [CPAP device] As directed 1 ea 0RF G47.33 - Obstructive sleep apnea (adult) (pediatric) To [CPAP device] As directed 1 ea 0RF G47.33 - Obstructive sleep apnea (adult) (pediatric) Coding Level of Care Code Tele Est Pt Level 4 (85468) Diagnoses Acute left-sided low back pain with left-sided sciatica M54.42 Chronicity: acute Sciatica laterality: sciatica of left side Mass of left side of neck R22.1 Benign essential hypertension I10 Stage 3b chronic kidney disease N18.32 Chronic kidney disease stage 3 subtype: stage 3b (GFR 30-44) Localized edema R60.0 Edema type: localized Migraine without status migrainosus, not intractable, unspecified migraine type G43.909 Intractability: not intractable Migraine type: unspecified Status migrainosus presence: without status migrainosus Moderate persistent asthma without complication J45.40 Asthma complication type: uncomplicated Asthma persistence: persistent Asthma severity: moderate Obstructive sleep apnea G47.33 Chronic idiopathic constipation K59.04 Roach's esophagus without dysplasia K22.70 Roach's esophagus type: without dysplasia Thoracic spondylosis M47.814 Elevated TSH R79.89 Urinary incontinence, unspecified type R32 Urinary Incontinence type: unspecified incontinence Obesity (BMI 30-39.9) E66.9
== END 2023-05-12 12:39 | disposition home or self-care (01) ==
LOC: HO.HMGH 10:43
PROVIDERS: PCP Internal Medicine; Visit Provider Internal Medicine
DX: I12.9 Hypertensive chronic kidney disease with stage 1 through stage 4 chronic kidney disease, or unspecified chronic kidney disease (principal); N18.32 Chronic kidney disease, stage 3b; M54.42 Lumbago with sciatica, left side; R22.1 Localized swelling, mass and lump, neck; R60.0 Localized edema; G43.909 Migraine, unspecified, not intractable, without status migrainosus; J45.40 Moderate persistent asthma, uncomplicated; G47.33 Obstructive sleep apnea (adult) (pediatric); K59.04 Chronic idiopathic constipation; K22.70 Barrett's esophagus without dysplasia; M47.814 Spondylosis without myelopathy or radiculopathy, thoracic region; R79.89 Other specified abnormal findings of blood chemistry
CPT/HCPCS: 99443

== ENCOUNTER 2023-05-27 13:04 | Outpatient (REF) | payer OTHER, SELFPAY ==
--- NOTE | ~2023-05-27 | US_ITS ---
EXAMINATION: US SOFT TISSUE HEAD/NECK CLINICAL INFORMATION: Localized swelling, mass and lump, neck. Three-month followup of left neck mass/adenopathy. COMPARISON: Ultrasound soft tissue neck 02/17/2023. CT soft tissue neck with contrast 12/02/2018. TECHNIQUE: Linear transducer anders-scale and color Doppler examination of the left submandibular area. FINDINGS: Compared to the previous examination from January 2023 which demonstrated 2 lymph nodes measured 0.8 x 0.4 x 0.6 cm and 0.9 x 0.5 x 0.5 cm. On the current examination only single 0.7 x 0.4 x 0.6 cm lymph node is still visualized. Another lymph node is not identified. US/US soft tiss head and/or neck IMPRESSION: Single reactive appearing lymph node, diminished in size and resolution of another lymph node in left submandibular area.
== END 2023-05-27 13:05 | disposition home or self-care (01) ==
LOC: HO.US 13:04
PROVIDERS: PCP Internal Medicine; Visit Provider Internal Medicine
DX: R22.1 Localized swelling, mass and lump, neck (principal)
CPT/HCPCS: 76536

== ENCOUNTER 2023-06-30 13:08 | Outpatient (REF) | payer OTHER, SELFPAY ==
[2023-06-30 14:32] LABS: MANUAL DIFF FLAG NO
[2023-06-30 15:01] LABS: Basophils Absolute Auto 0.1 X10*3/uL (0.0-0.2); Basophils Percent Auto 0.6 % (0-2); Eosinophils Absolute Auto 0.2 X10*3/uL (0.0-0.4); Eosinophils Percent Auto 2.8 % (0-4); Hematocrit 42.8 % (37.0-47.0); Hemoglobin 13.6 g/dl (12.0-16.0); Imm Gran Abs Auto 0.04 X10*3/uL (0.00-0.03); Imm Gran Pct Auto 0.5 % (0.0-0.4); Lymphocytes Percent Auto 24.9 % (20-40); Mean Corpuscular HGB Conc 31.8 g/dl (31.0-35.0); Mean Corpuscular Hemoglobin 29.6 pg (27.0-33.0); Mean Corpuscular Volume 93.2 fL (80.0-98.0); Mean Platelet Volume 10.2 fL (9.4-12.3); Monocytes Absolute Auto 0.3 X10*3/uL (0.1-1.2); Monocytes Percent Auto 3.5 % (2-11); Neutrophils Absolute Auto 5.4 x10*3/uL (2.0-8.3); Neutrophils Percent Auto 67.7 % (45-73); Platelet Count 256 X10*3/uL (160-400); Red Blood Count 4.59 X10*6/uL (4.20-5.50); Red Cell Distribution Width 13.5 % (11.0-16.0)
[2023-06-30 15:27] LABS: Rheumatoid Factor < 13.0 IU/mL (<15.0)
[2023-06-30 15:29] LABS: Alanine Aminotransferase 14 U/L (0-31); Alkaline Phosphatase 97 U/L (39-117); Anion Gap 10 (12-20); Aspartate Amino Transferase 12 U/L (5-31); Bilirubin Total 0.3 mg/dL (0.0-1.0); Blood Urea Nitrogen 23 mg/dL (9-16); Calcium 9.9 mg/dL (8.4-10.2); Carbon Dioxide 25 mmol/L (22-29); Chloride 112 mmol/L (96-108); Estimated Glomerular Filt Rate 27; Glucose Random 137 mg/dL (60-115); Potassium 3.6 mmol/L (3.3-5.1); Sodium 143 mmol/L (135-145); Total Protein 7.2 g/dL (6.5-8.0)
[2023-06-30 16:14] LABS: Erythrocyte Sedimentation Rate 25 MM/HR (0-20)
[2023-06-30 16:31] LABS: Appearance Urine Clear; Color Urine Yellow; Glucose Urine UA Negative (Negative); Leukocyte Esterase Urine Negative (Negative); Nitrite Urine Negative (Negative); UMIC TRIGGER UA YES; Urine Blood Small (1+) (Negative); Urine Ketones Negative (Negative); Urine Protein 100 (2+) mg/dL (Neg-Trace)
[2023-06-30 16:42] LABS: Bacteria Urine None Seen (None Seen); Hyaline Casts Urine 0-2 /LPF (0-2); RBC Urine 0-2 /HPF (0-2); Squamous Epithelial Cell Urine 0-2 /HPF (0-2); WBC Urine 0-5 /HPF (0-5)
[2023-06-30 16:52] LABS: Protein/Creatinine Ratio, Ur 2.19 (<0.2); Total Protein Urine Random 135 mg/dL (<12)
[2023-07-01 07:34] LABS: HBS Num1 3.81 mIU/mL (0-7.99); HBc Num1 0.14 S/CO (0.00-0.79); Hepatitis A Antibody IgM 0.26 Index (0-0.79); Hepatitis B Core Antibody Nonreactive (Nonreactive); Hepatitis B Surface Antigen Negative (Negative); ~HepC Num1 0.11 S/CO (0.00-0.79); ~Hepatitis A Antibody IgM Nonreactive (Nonreactive); ~Hepatitis B Surface Antibody NONREACTIVE (Nonreactive); ~Hepatitis C Antibody Nonreactive (Nonreactive)
[2023-07-01 16:08] LABS: Cyclic Citrullinated Peptide <16 UNITS
[2023-07-01 22:29] LABS: Anti DNA DS Antibody <1 IU/mL; Antibody to SS-A Antigen <1.0 NEG AI (<1.0 NEG); Antibody to SS-B Antigen <1.0 NEG AI (<1.0 NEG); Myeloperoxidase Antibody <1.0 AI; Proteinase 3 PR3 Antibodies <1.0 AI; SM/Ribonucleoprotein Ab <1.0 NEG AI (<1.0 NEG); Smith Protein <1.0 NEG AI (<1.0 NEG)
[2023-07-02 11:09] LABS: Prot Elec - Alpha1 0.3 g/dL (0.2-0.3); Prot Elec - Alpha2 0.9 g/dL (0.5-0.9); Prot Elec - Beta 1 0.5 g/dL (0.4-0.6); Prot Elec - Beta 2 0.4 g/dL (0.2-0.5); Prot Elec - Gamma 0.9 g/dL (0.8-1.7); Prot Elec - Total Protein 6.9 g/dL (6.1-8.1)
[2023-07-02 11:43] LABS: Complement C3 126 mg/dL (83-193)
[2023-07-02 12:53] LABS: Anti Nuclear Antibody Screen NEGATIVE (NEGATIVE)
[2023-07-03 08:04] LABS: TS Negative Control Passed; TS Panel A 0; TS Panel B 1; TS Positive Control Passed; TSpotTB Negative (Negative)
[2023-07-03 13:08] LABS: IgA 131 mg/dL (47-310); IgG 800 mg/dL (600-1640); IgM 231 mg/dL (50-300)
[2023-07-05 13:53] LABS: DNAds, Crithidia Antibody Negative (Negative)
== END 2023-06-30 13:09 | disposition home or self-care (01) ==
LOC: HO.LAB 13:08
PROVIDERS: PCP Internal Medicine; Visit Provider Student in an Organized Health Care Education/Training Program
DX: M32.9 Systemic lupus erythematosus, unspecified (principal); M25.50 Pain in unspecified joint; I77.6 Arteritis, unspecified; Z11.59 Encounter for screening for other viral diseases; Z11.7 Encounter for testing for latent tuberculosis infection
CPT/HCPCS: 36415; 80053; 81001; 82570; 82784; 84156; 84165; 85025; 85652; 86021; 86038; 86140; 86160; 86200; 86225; 86235; 86255; 86334; 86431; 86481; 86704; 86706; 86709; 86803; 87340; 99202

== ENCOUNTER 2023-06-30 13:08 | Outpatient (AMB) | payer OTHER, SELFPAY ==
--- NOTE | 2023-06-30 13:14 | A.OFFVIS_ITS ---
Intake Vital Signs 06/30/23 13:16 Height 5 ft 1 in Weight 201 lb 4.513 oz BMI 38.0 BP 122/70 Blood Pressure Location Rt brachial Position Sitting Pulse 64 Pulse Source Pulse Oximeter Pulse Oximetry (%) 93 Oxygen Delivery Method Room Air Intake Visit Reasons: Joint Pain/CM Intake Note: New patient presents today for consult. C/o pain in multiple joints. Se[place] [facility] [place] knee pain worse on left. 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 Accompanied by: Self / Same As Patient Allergies diphenhydramine [From Benadryl] Allergy (Severe, Verified 06/30/23 13:23) Angioedema hydromorphone [From Dilaudid] Allergy (Intermediate, Verified 06/30/23 13:23) Increased BP FRANK Inhibitors [FRANK INHIBITORS] Allergy (Unknown, Verified 06/30/23 13:23) PER H&P codeine Allergy (Unknown, Verified 06/30/23 13:23) Rash meperidine Allergy (Unknown, Verified 06/30/23 13:23) Rash morphine Allergy (Unknown, Verified 06/30/23 13:23) RASH, DIFF BREATHING,CHEST PRESSURE, throat swelling TAPE,PLASTIC Allergy (Unknown, Uncoded 06/30/23 13:23) Rash Medication List - Last Reconciled 06/30/23 by Carlos Freed MD [ADULT PULL UPS (medium) As directed - #60 / month (2 pull ups/day) with 12 refills] albuterol sulfate 90 mcg/actuation 2 puffs PO Q4H PRN amitriptyline 10 mg PO BEDTIME amlodipine 10 mg PO DAILY [BEDSIDE COMMODE As directed] [bladder pads As directed - #90/month (3 pads / day), with 12 refills] budesonide-formoterol 160-4.5 mcg/actuation 2 inhalations inhalation BID cholecalciferol (vitamin D3) 25 mcg PO DAILY [CPAP device As directed] dapagliflozin propanediol (Farxiga) 10 mg PO DAILY diclofenac sodium 1% (Arthritis Pain (diclofenac)) 2 grams topical QID PRN [foot pedal As directed] furosemide 20 mg PO DAILY [incontinence wipes As directed] lansoprazole 30 mg PO DAILY linaclotide (Linzess) 145 mcg PO QAM losartan 50 mg PO DAILY magnesium oxide 400 mg PO DAILY nystatin 1 appl topical BID rizatriptan 10 mg PO ONCE sennosides (Savanna-dean) 17.2 mg (2 x 8.6 mg) PO BEDTIME simethicone (Gas Relief (simethicone)) 125 mg PO QID PRN tizanidine 2 mg PO BID PRN topiramate 100 mg PO BID trospium ER 60 mg PO DAILY vibegron (Gemtesa) mg PO HPI HPI Comments History of Present Illness Details This is a 58-year-old female who is referred for evaluation of multiple joint pain. She stated that about 2 weeks ago she went to [facility] for abrupt onset of right shoulder pain associated with headaches dizziness. Patient stated that she had a CT scan of the neck and head. She does not know the results. However patient's ESR was found to be elevated at 42. She was told that she will need a temporal artery biopsy. Patient refused. She stated that she received IV steroids for a few days then got discharged. She states that steroids were helpful. She states that she continues to have right shoulder pain but it is improved. She has neck pain, she also has bilateral knee pain, worse on the left. She is unaware of any family history of an autoimmune rheumatic disease [facility] Medical History Urinary incontinence Breast calcification, right Chronic renal insufficiency Asthma Migraine Normal colonoscopy (~12/25/16) Obstructive sleep apnea Benign essential hypertension Diverticulitis Vitamin D deficiency Hypertension Surgical History History of facial surgery History of carpal tunnel repair History of nasal surgery History of ankle surgery (~2012) History of cryosurgery History of pubovaginal sling Hx of hernia repair History of bilateral tubal ligation Hx laparoscopic cholecystectomy (~2001) History of esophagogastroduodenoscopy Hx of colonoscopy Family History Mother High blood pressure Diabetes Arthritis Father Diabetes Kidney disease Heart disease Brother Diabetes Maternal Aunt Cancer of breast Brother Colon cancer, Onset Age: 57 Maternal Grandmother Cancer of breast Social History Household Members: None Housing: Apartment Alcohol intake: current Alcohol intake frequency: a few times a month Alcohol type: wine and hard liquor Patient Tobacco Use Status: Former Tobacco user Quit Date: 2002 Tobacco use type: Cigarette Years Smoked: 7 e-Cigarette/Vaping Use: Never Used Second Hand Smoke Exposure: No service: No Current occupational status: disabled Cognitive needs: No Hearing needs: No Vision needs: Yes Female Reproductive History Menstrual Age of Menarche: 13 Review of Systems Const Reports weight gain Eyes Reports blurry vision, Reports diplopia, Reports loss of vision and Reports eye pain ENT Reports neck pain Musc Reports arthralgias, Reports limited range of motion, Reports neck pain and Reports stiffness Neuro Reports loss of vision Physical Exam Vital Signs: Last Vital Signs Pulse 64 06/30/23 13:16 Pulse Ox 93 06/30/23 13:16 Oxygen Delivery Method Room Air 06/30/23 13:16 BMI result Body Mass Index 38.0 Const General: cooperative, healthy appearing and comfortable Nutritional Appearance: obese morbidly obese Orientation/consciousness: patient oriented x3 Limitations: no limitations HEENT Head: Yes normocephalic and Yes atraumatic Mouth: moist mucous membranes Resp Effort & Inspection: normal respiratory effort and able to speak in complete sentences Auscultation: clear to auscultation bilaterally Cardio Rate: regular rate Rhythm: regular rhythm Skin General skin exam: no rashes or lesions noted Neuro General: patient oriented x3 Extrem Other: No active synovitis both hands and wrists Normal nailfold capillaroscopy Normal range of motion of elbows without pain Normal range of motion of shoulders except for mild stiffness at full abduction, the pain is mostly in the right neck/trapezius area With empty can test on the right patient has right-sided neck and trapezius pain Negative Spurling's test bilaterally Left knee crepitus and pain with flexion and extension Results Reviewed Results Reviewed: Labs at [facility] ESR 42 CRP 0.9 mg/dL (unknown reference range) Assessment & Plan Assessment & Plan (1) Multiple joint pain: Code(s): M25.50 - Pain in unspecified joint Plan: This is a 58-year-old female who presents for evaluation of multiple joint pain. She was recently admitted at [facility] her ESR was elevated at 42 and there was some suspicion of giant cell arteritis, temporal artery biopsy was discussed. Patient received IV steroids for a few days then got discharged with some improvement. Will order comprehensive serology to screen for underlying autoimmune rheumatic disease. Check x-rays of involved joints. Will try to request records from [facility] Follow-up in about 4 weeks Plan I spent 47 minutes reviewing patient's chart, evaluating patient, ordering diagnostic workup, counseling patient and documenting in the chart Orders: Orders Complement C3 Today M32.9 - Systemic lupus erythematosus, unspecified C Reactive Protein Today M32.9 - Systemic lupus erythematosus, unspecified DNA Double Stranded-Crithidia Today M32.9 - Systemic lupus erythematosus, unspecified Sjogren's Antibodies Today M32.9 - Systemic lupus erythematosus, unspecified UA w Microscopic Today M32.9 - Systemic lupus erythematosus, unspecified Complete Blood Count Auto Diff Today M32.9 - Systemic lupus erythematosus, unspecified Comprehensive Met. Panel Today M32.9 - Systemic lupus erythematosus, unspecified Immunofixation Pnl, Serum Today M32.9 - Systemic lupus erythematosus, unspecified Protein Electrophoresis, Serum Today M32.9 - Systemic lupus erythematosus, unspecified Rheumatoid Factor Today M25.50 - Pain in unspecified joint Cyclic Citrullinated Peptide Today M25.50 - Pain in unspecified joint ANCA Vasculitides Today I77.6 - Arteritis, unspecified XR shoulder LT min 2V Today M25.50 - Pain in unspecified joint XR shoulder RT min 2V Today M25.50 - Pain in unspecified joint XR knee LT 3V Today M25.50 - Pain in unspecified joint XR knee RT 3V Today M25.50 - Pain in unspecified joint LIANET Reflex Titer and Pattern Today M32.9 - Systemic lupus erythematosus, unspecified Anti Extractable Nuclear Ag Today M32.9 - Systemic lupus erythematosus, unspecified Anti DNA DS Antibody Today M32.9 - Systemic lupus erythematosus, unspecified Complement C4 Today M32.9 - Systemic lupus erythematosus, unspecified Erythrocyte Sedimentation Rate Today M32.9 - Systemic lupus erythematosus, unspecified Protein Creatinine Ratio, Ur Today M32.9 - Systemic lupus erythematosus, unspecified Hepatitis A,B,C Profile Today Z11.59 - Encounter for screening for other viral diseases T Spot TB Today Z11.7 - Encounter for testing for latent tuberculosis infection XR knee standing BI Today M25.50 - Pain in unspecified joint XR cervical spine 4V Today M25.50 - Pain in unspecified joint Coding Level of Care Code New Pt Level 4 (29820) Diagnoses Multiple joint pain M25.50
[2023-06-30 13:16] VITALS: BP 122/70; PULSE 64; O2SAT 93; BMI 38.0
== END 2023-06-30 13:48 | disposition home or self-care (01) ==
LOC: HO.RHE 13:08
PROVIDERS: PCP Internal Medicine; Visit Provider Student in an Organized Health Care Education/Training Program
DX: M25.50 Pain in unspecified joint (principal)
CPT/HCPCS: 99204

== ENCOUNTER 2023-07-01 13:43 | Outpatient (REF) | payer OTHER, SELFPAY ==
--- NOTE | ~2023-07-01 | XR_ITS ---
EXAMINATION: XR KNEE AP STANDING CLINICAL INFORMATION: Pain, in unspecified joint. COMPARISON: Left knee June 03, 2018. TECHNIQUE: AP bilateral standing view of the knees was obtained. FINDINGS: LEFT KNEE: [id number] narrowing of the medial compartment. Tiny marginal osteophytes. RIGHT KNEE: Mild narrowing of the medial compartment. Tiny medial and lateral marginal osteophytes. XR/XR knee standing BI IMPRESSION: Mild degenerative changes in the bilateral knees.
--- NOTE | ~2023-07-01 | XR_ITS ---
EXAMINATION: RIGHT SHOULDER 4 VIEWS LEFT SHOULDER 4 VIEWS CLINICAL INFORMATION: Bilateral shoulder pain. COMPARISON: Left shoulder 01/20/2023, right shoulder 11/09/2013. TECHNIQUE: 4 views of the right shoulder and 4 views of the left shoulder FINDINGS: Right: Alignment is anatomic. Progressive moderate degenerative changes in the acromioclavicular joint. No visible fracture. The included right lung appears clear. Left: Alignment is anatomic. Stable mild degenerative changes in the acromioclavicular joint. No fracture. The visible left lung is clear. XR/XR shoulder LT min 2V IMPRESSION: Degenerative changes in the acromioclavicular joints bilaterally, right greater than left. No fracture.
--- NOTE | ~2023-07-01 | XR_ITS ---
EXAMINATION: RIGHT SHOULDER 4 VIEWS LEFT SHOULDER 4 VIEWS CLINICAL INFORMATION: Bilateral shoulder pain. COMPARISON: Left shoulder 01/20/2023, right shoulder 11/09/2013. TECHNIQUE: 4 views of the right shoulder and 4 views of the left shoulder FINDINGS: Right: Alignment is anatomic. Progressive moderate degenerative changes in the acromioclavicular joint. No visible fracture. The included right lung appears clear. Left: Alignment is anatomic. Stable mild degenerative changes in the acromioclavicular joint. No fracture. The visible left lung is clear. XR/XR shoulder RT min 2V IMPRESSION: Degenerative changes in the acromioclavicular joints bilaterally, right greater than left. No fracture.
--- NOTE | ~2023-07-01 | XR_ITS ---
EXAMINATION: XR CERVICAL SPINE CLINICAL INFORMATION: Pain COMPARISON: Cervical spine 05/30/2018. TECHNIQUE: 5 views of the cervical spine were obtained FINDINGS: Straightening of normal lordosis. No prevertebral soft tissue swelling. Moderate degenerative disc disease at C5-C6. The oblique images are suboptimal but there is mild narrowing of the left C5-C6 neural foramen due to uncovertebral hypertrophy. The lung apices are clear. XR/XR cervical spine 4V IMPRESSION: Progressive moderate degenerative disc disease at C5-C6. Mild narrowing of the left neural foramen at C5-C6.
== END 2023-07-01 13:44 | disposition home or self-care (01) ==
LOC: HO.XRAY 13:43
PROVIDERS: PCP Internal Medicine; Visit Provider Student in an Organized Health Care Education/Training Program
DX: M54.2 Cervicalgia (principal); M25.561 Pain in right knee; M25.562 Pain in left knee; M25.511 Pain in right shoulder; M25.512 Pain in left shoulder
CPT/HCPCS: 72050; 73030; 73565

== ENCOUNTER 2023-07-22 13:50 | Outpatient (REF) | payer OTHER, SELFPAY ==
[2023-07-22 17:10] LABS: Hematocrit 43.4 % (37.0-47.0); Hemoglobin 13.8 g/dl (12.0-16.0); Mean Corpuscular HGB Conc 31.8 g/dl (31.0-35.0); Mean Corpuscular Hemoglobin 29.8 pg (27.0-33.0); Mean Corpuscular Volume 93.7 fL (80.0-98.0); Mean Platelet Volume 10.9 fL (9.4-12.3); Platelet Count 218 X10*3/uL (160-400); Red Blood Count 4.63 X10*6/uL (4.20-5.50); Red Cell Distribution Width 14.4 % (11.0-16.0); White Blood Count 6.7 X10*3/uL (4.8-10.8)
[2023-07-22 17:21] LABS: INTERNATIONAL NORM RATIO 0.9 (0.9-1.1); Prothrombin Time 10.7 SEC (11.1-13.3)
[2023-07-22 17:44] LABS: Alanine Aminotransferase 9 U/L (0-31); Albumin Level 4.1 g/dL (3.5-5.0); Alkaline Phosphatase 94 U/L (39-117); Anion Gap 9 (12-20); Aspartate Amino Transferase 11 U/L (5-31); Bilirubin Total 0.2 mg/dL (0.0-1.0); Blood Urea Nitrogen 36 mg/dL (9-16); Calcium 9.7 mg/dL (8.4-10.2); Carbon Dioxide 26 mmol/L (22-29); Chloride 111 mmol/L (96-108); Estimated Glomerular Filt Rate 30; Glucose Random 127 mg/dL (60-115); Potassium 4.4 mmol/L (3.3-5.1); Sodium 142 mmol/L (135-145); Total Protein 7.1 g/dL (6.5-8.0)
[2023-07-23 13:18] LABS: Prot Elec - Albumin 4.1 g/dL (3.8-4.8); Prot Elec - Alpha1 0.3 g/dL (0.2-0.3); Prot Elec - Alpha2 0.8 g/dL (0.5-0.9); Prot Elec - Beta 1 0.5 g/dL (0.4-0.6); Prot Elec - Beta 2 0.4 g/dL (0.2-0.5); Prot Elec - Gamma 0.8 g/dL (0.8-1.7); Prot Elec - Total Protein 6.8 g/dL (6.1-8.1)
[2023-07-31 12:29] LABS: Phospholipase A2 IgG ELISA 4 RU/mL; Phospholipase A2 IgG IFA NEGATIVE (NEGATIVE)
== END 2023-07-22 13:51 | disposition home or self-care (01) ==
LOC: HO.HKASLDS 13:50
PROVIDERS: PCP Internal Medicine; Visit Provider Internal Medicine Hypertension Specialist
DX: N18.32 Chronic kidney disease, stage 3b (principal); R80.9 Proteinuria, unspecified
CPT/HCPCS: 36415; 80053; 83520; 84165; 85027; 85610; 86255; 99212

== ENCOUNTER 2023-07-22 13:50 | Outpatient (AMB) | payer OTHER, SELFPAY ==
[2023-07-22 13:57] VITALS: BP 144/86; PULSE 64; O2SAT 95; BMI 38.4
--- NOTE | 2023-07-22 13:57 | HO.NEPHOV_ITS ---
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: No Accompanied by: Self / Same As Patient Allergies diphenhydramine [From Benadryl] Allergy (Severe, Verified 07/22/23 14:02) Angioedema hydromorphone [From Dilaudid] Allergy (Intermediate, Verified 07/22/23 14:02) Increased BP FRANK Inhibitors [FRANK INHIBITORS] Allergy (Unknown, Verified 07/22/23 14:02) PER H&P codeine Allergy (Unknown, Verified 07/22/23 14:02) Rash meperidine Allergy (Unknown, Verified 07/22/23 14:02) Rash morphine Allergy (Unknown, Verified 07/22/23 14:02) RASH, DIFF BREATHING,CHEST PRESSURE, throat swelling TAPE,PLASTIC Allergy (Unknown, Uncoded 06/30/23 13:23) Rash HPI Comments Details: Middle-aged woman with history of obesity and hypertension with proteinuria and CKD. She has biopsy-proven FSGS. Biopsy was done more than 15 years ago. Serum creatinine fluctuates between 1.5 minutes 1.8 mg/dL. Recently she was started on Farxiga by another assembler dc field yoke. She continues to experience knee pain. She also has history of constipation for which she is on Linzess. Today she has no shortness of breath. No nausea vomiting. No edema. No urinary symptoms. Recently she underwent ultrasound of the neck which showed multiple lymph nodes. Work up in contrast Still with joint pains Cr is up to 1.8 and 2.1 gm proteinuria [facility] Medical History Urinary incontinence Breast calcification, right Chronic renal insufficiency Asthma Migraine Normal colonoscopy (~12/25/16) Obstructive sleep apnea Benign essential hypertension Diverticulitis Vitamin D deficiency Hypertension Surgical History History of facial surgery History of carpal tunnel repair History of nasal surgery History of ankle surgery (~2012) History of cryosurgery History of pubovaginal sling Hx of hernia repair History of bilateral tubal ligation Hx laparoscopic cholecystectomy (~2001) History of esophagogastroduodenoscopy Hx of colonoscopy Family History Mother High blood pressure Diabetes Arthritis Father Diabetes Kidney disease Heart disease Brother Diabetes Maternal Aunt Cancer of breast Brother Colon cancer, Onset Age: 57 Maternal Grandmother Cancer of breast Social History Household Members: None Housing: Apartment Alcohol intake: current Alcohol intake frequency: a few times a month Alcohol type: wine and hard liquor Patient Tobacco Use Status: Former Tobacco user Quit Date: 2002 Tobacco use type: Cigarette Years Smoked: 7 e-Cigarette/Vaping Use: Never Used Second Hand Smoke Exposure: No service: No Current occupational status: disabled Cognitive needs: No Hearing needs: No Vision needs: Yes Female Reproductive History Menstrual Age of Menarche: 13 Physical Exam Vital Signs: Last Vital Signs Pulse 64 07/22/23 13:57 BP 144/86 H 07/22/23 13:57 Pulse Ox 95 07/22/23 13:57 Oxygen Delivery Method Room Air 07/22/23 13:57 BMI result Body Mass Index 38.4 Const General: comfortable Nutritional Appearance: well nourished Orientation/consciousness: patient oriented x3 HEENT Head: No normal to inspection Mouth: moist mucous membranes Neck Neck: Yes supple and Yes no JVD Resp Auscultation: clear to auscultation bilaterally, no rales and rub present Cardio Jugular venous distension: no JVD Palpation: no palpable S3 and no palpable S4 Heart sounds: no rubs GI Palpation (GI): Soft to palpation and nontender Percussion: No Fluid wave present General: Yes no CVA tenderness Back/Spine/Pelvis Back: no CVA tenderness Skin General skin exam: no rashes or lesions noted Neuro General: patient oriented x3 Extrem General: Yes no pedal edema and No clubbing Results Reviewed Nephrology Results: Hgb 13.6 g/dl (12.0-16.0) 06/30/23 WBC 8.0 X10*3/uL (4.8-10.8) 06/30/23 Plt Count 256 X10*3/uL (160-400) 06/30/23 Sodium 143 mmol/L (135-145) 06/30/23 Potassium 3.6 mmol/L (3.3-5.1) 06/30/23 Chloride 112 mmol/L (96-108) H 06/30/23 Carbon Dioxide 25 mmol/L (22-29) 06/30/23 BUN 23 mg/dL (9-16) H 06/30/23 Creatinine 1.89 mg/dL (0.5-1.4) H 06/30/23 Calcium 9.9 mg/dL (8.4-10.2) 06/30/23 Urine Protein 100 (2+) mg/dL (Neg-Trace) H 06/30/23 Urine Creatinine 61.60 mg/dL 06/30/23 Protein/Creatinin Ratio 2.19 (<0.2) H 06/30/23 Assessment & Plan Assessment & Plan (1) Proteinuria: Code(s): R80.9 - Proteinuria, unspecified Category: Medical (2) CKD (chronic kidney disease) stage 3, GFR 30-59 ml/min: Comment: 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, with minimal proteinuria Code(s): N18.30 - Chronic kidney disease, stage 3 unspecified Category: Medical Qualifiers: Chronic kidney disease stage 3 subtype: stage 3b (GFR 30-44) Qualified Code(s): N18.32 - Chronic kidney disease, stage 3b Plan: She is CKD 3 creatinine Creatinine fluctuates has gradually increased 1.8 Goal slow the portion disease. Maintain losartan for renal protection Continue to avoid nephrotoxic agents including NSAIDs Discussed weight loss and blood pressure control Now with 2.1 gm proteinuria with worsening renal function Will repeat kidney biopsy DDx- FSGS /Membranous (3) Hypertension: Code(s): I10 - Essential (primary) hypertension Category: Medical Plan: Blood pressure is better controlled Continue with losartan (4) Obesity (BMI 30-39.9): Code(s): E66.9 - Obesity, unspecified Category: Medical Plan: We had a lengthy discussion about weight loss The meantime encouraged her to increase physical activity and decreasing calorie intake Plan Other problems include cervical lymph nodes which require further workup Orders: Orders CT biopsy renal RT Today R80.9 - Proteinuria, unspecified Prothrombin Time INR Today N18.32 - Chronic kidney disease, stage 3b Protein Electrophoresis, Serum Today N18.32 - Chronic kidney disease, stage 3b, R80.9 - Proteinuria, unspecified Phospholipase A2 Receptor Pnl Today N18.32 - Chronic kidney disease, stage 3b, R80.9 - Proteinuria, unspecified Coding Level of Care Code Est Pt Level 4 (21946) Diagnoses Proteinuria R80.9 Stage 3b chronic kidney disease N18.32 Chronic kidney disease stage 3 subtype: stage 3b (GFR 30-44) Hypertension I10 Obesity (BMI 30-39.9) E66.9
== END 2023-07-22 14:29 | disposition home or self-care (01) ==
PROVIDERS: PCP Internal Medicine; Visit Provider Internal Medicine Hypertension Specialist
DX: R80.9 Proteinuria, unspecified (principal); N18.32 Chronic kidney disease, stage 3b; I10 Essential (primary) hypertension; E66.9 Obesity, unspecified
CPT/HCPCS: 99214

== ENCOUNTER 2023-07-30 09:05 | Outpatient (AMB) | payer OTHER, SELFPAY ==
--- NOTE | 2023-07-30 09:18 | MHC.OFFVIS ---
Vital Signs 07/30/23 09:24 Height 5 ft 1 in Weight 207 lb 10.807 oz BMI 39.2 BP 144/90 H Blood Pressure Location Rt brachial Position Sitting Pulse 58 Pulse Source Pulse Oximeter Pulse Oximetry (%) 97 Oxygen Delivery Method Room Air Intake Visit Reasons: RA,OA,GCA/CM Intake Note: Patient last seen 06/30/23 presents today for follow up and test results. Walking everyday, reports pain in L knee States she feels her legs heavy Senior Energy Market Coordinator Required: Yes Senior Energy Market Coordinator Language: Community Education Specialist Name: Jocelyne Garcia113 Information Interpreted: clinical only Accompanied by: Self / Same As Patient Allergies diphenhydramine [From Benadryl] Allergy (Severe, Verified 07/30/23 09:27) Angioedema hydromorphone [From Dilaudid] Allergy (Intermediate, Verified 07/30/23 09:27) Increased BP FRANK Inhibitors [FRANK INHIBITORS] Allergy (Unknown, Verified 07/30/23 09:27) PER H&P codeine Allergy (Unknown, Verified 07/30/23 09:27) Rash meperidine Allergy (Unknown, Verified 07/30/23 09:27) Rash morphine Allergy (Unknown, Verified 07/30/23 09:27) RASH, DIFF BREATHING,CHEST PRESSURE, throat swelling TAPE,PLASTIC Allergy (Unknown, Uncoded 07/30/23 09:27) Rash Medication List - Last Reconciled 07/30/23 by Carlos Freed MD [ADULT PULL UPS (medium) As directed - #60 / month (2 pull ups/day) with 12 refills] albuterol sulfate 90 mcg/actuation 2 puffs PO Q4H PRN amitriptyline 10 mg PO BEDTIME amlodipine 10 mg PO DAILY [BEDSIDE COMMODE As directed] [bladder pads As directed - #90/month (3 pads / day), with 12 refills] budesonide-formoterol 160-4.5 mcg/actuation 2 inhalations inhalation BID cholecalciferol (vitamin D3) 25 mcg PO DAILY [CPAP device As directed] dapagliflozin propanediol (Farxiga) 10 mg PO DAILY diclofenac sodium 1% (Arthritis Pain (diclofenac)) 2 grams topical QID PRN [foot pedal As directed] furosemide 20 mg PO DAILY [incontinence wipes As directed] lansoprazole 30 mg PO DAILY linaclotide (Linzess) 145 mcg PO QAM losartan 50 mg PO DAILY magnesium oxide 400 mg PO DAILY nystatin 1 appl topical BID sennosides (Savanna-dean) 17.2 mg (2 x 8.6 mg) PO BEDTIME simethicone (Gas Relief (simethicone)) 125 mg PO QID PRN tizanidine 2 mg PO BID PRN topiramate 100 mg PO BID trospium ER 60 mg PO DAILY vibegron (Gemtesa) mg PO ONCE HPI Comments Details: Patient returns for follow-up after completion of her diagnostic workup. She states that he has been having significant bilateral knee pain, worse on the left as well as bilateral leg swelling and fluid retention. That she has been doing exercises for her knees as well as walking daily and after 10 minutes she is in so much pain. Initial history: This is a 58-year-old female who is referred for evaluation of multiple joint pain. She stated that about 2 weeks ago she went to [facility] for abrupt onset of right shoulder pain associated with headaches dizziness. Patient stated that she had a CT scan of the neck and head. She does not know the results. However patient's ESR was found to be elevated at 42. She was told that she will need a temporal artery biopsy. Patient refused. She stated that she received IV steroids for a few days then got discharged. She states that steroids were helpful. She states that she continues to have right shoulder pain but it is improved. She has neck pain, she also has bilateral knee pain, worse on the left. She is unaware of any family history of an autoimmune rheumatic disease [facility] Medical History Urinary incontinence Breast calcification, right Chronic renal insufficiency Asthma Migraine Normal colonoscopy (~12/25/16) Obstructive sleep apnea Benign essential hypertension Diverticulitis Vitamin D deficiency Hypertension Surgical History History of facial surgery History of carpal tunnel repair History of nasal surgery History of ankle surgery (~2012) History of cryosurgery History of pubovaginal sling Hx of hernia repair History of bilateral tubal ligation Hx laparoscopic cholecystectomy (~2001) History of esophagogastroduodenoscopy Hx of colonoscopy Family History Mother High blood pressure Diabetes Arthritis Father Diabetes Kidney disease Heart disease Brother Diabetes Maternal Aunt Cancer of breast Brother Colon cancer, Onset Age: 57 Maternal Grandmother Cancer of breast Social History Household Members: None Housing: Apartment Alcohol intake: current Alcohol intake frequency: a few times a month Alcohol type: wine and hard liquor Patient Tobacco Use Status: Former Tobacco user Quit Date: 2002 Tobacco use type: Cigarette Years Smoked: 7 e-Cigarette/Vaping Use: Never Used Second Hand Smoke Exposure: No service: No Current occupational status: disabled Cognitive needs: No Hearing needs: No Vision needs: Yes Female Reproductive History Menstrual Age of Menarche: 13 Review of Systems Const Reports weight gain Musc Reports arthralgias, Reports joint swelling, Reports limited range of motion and Reports stiffness Physical Exam Vital Signs: Last Vital Signs Pulse 58 07/30/23 09:24 BP 144/90 H 07/30/23 09:24 Pulse Ox 97 07/30/23 09:24 Oxygen Delivery Method Room Air 07/30/23 09:24 BMI result Body Mass Index 39.2 Const General: cooperative, healthy appearing and comfortable Nutritional Appearance: obese morbidly obese Orientation/consciousness: patient oriented x3 Limitations: no limitations HEENT Head: Yes normocephalic and Yes atraumatic Resp Effort & Inspection: normal respiratory effort and able to speak in complete sentences Neuro General: patient oriented x3 Extrem Other: No active synovitis both hands and wrists Normal nailfold capillaroscopy Normal range of motion of elbows without pain Normal range of motion of shoulders except for mild stiffness at full abduction, the pain is mostly in the right neck/trapezius area Bilateral knee warmth without significant swelling Left knee pain with any range of motion Bilateral lower limb pitting edema Significant antalgic gait. Results Reviewed Results Reviewed: Labs at [facility] ESR 42 CRP 0.9 mg/dL (unknown reference range) Assessment & Plan Assessment & Plan (1) Multiple joint pain: Code(s): M25.50 - Pain in unspecified joint Category: Medical Plan: This is a 58-year-old female who presents for evaluation of multiple joint pain. Upon evaluation her symptoms likely due to degenerative arthritis of neck, shoulders and knees. Her inflammatory markers are only mildly elevated and can be related to her obesity and/or CKD. I do not see any compelling evidence an autoimmune rheumatic disease. Today her most symptomatic joint is her left knee. I offered her an injection. Patient refused. She would like to be seen by Orthopedics. Referral placed. I suggested Tylenol, consider ice packs and Salonpas patches. Avoid NSAIDs due to CKD Plan I spent 17 minutes reviewing patient's chart, evaluating patient, counseling patient and documenting in the chart Orders: Referrals Orthopedics Referral M17.0 - Bilateral primary osteoarthritis of knee Coding Level of Care Code Est Pt Level 3 (69504) Diagnoses Multiple joint pain M25.50
[2023-07-30 09:24] VITALS: BP 144/90; PULSE 58; O2SAT 97; BMI 39.2
== END 2023-07-30 09:54 | disposition home or self-care (01) ==
PROVIDERS: PCP Internal Medicine; Visit Provider Student in an Organized Health Care Education/Training Program
DX: M25.50 Pain in unspecified joint (principal)
CPT/HCPCS: 99213

== ENCOUNTER → 2023-07-30 09:05 | Outpatient (BNVA) | payer OTHER, SELFPAY | PROVIDERS: PCP Internal Medicine; Visit Provider Student in an Organized Health Care Education/Training Program | DX: M25.50 Pain in unspecified joint (principal) | CPT/HCPCS: 99212 ==

== ENCOUNTER 2023-08-25 09:19 | Day surgery (SDC) | payer OTHER, SELFPAY ==
[2023-08-25] VITALS (7 sets, daily range): BP systolic 124–156; BP diastolic 64–79; PULSE 41–60; RESP 14–16; TEMP 36.1–36.3; O2SAT 94–98; BMI 38.9
--- NOTE | ~2023-08-25 | CT_ITS ---
Patient presents with nephrotic range proteinuria and worsening renal function. Nephrology requests a renal biopsy. PROCEDURES: 1. Limited preprocedure CT of the abdomen. Permanent images saved in PACS. 2. CT-guided non-targeted biopsy of the left kidney. 3. Limited post procedure CT of the abdomen. Permanent images saved in PACS. CLINICIANS: Dilshad Miller PA-C MEDICATIONS: -Versed 1.5 mg, Fentanyl 75 mcg, and lidocaine 1% 10 mL SQ -Antibiotics: None -For additional details, please see nursing flowsheet. COMPLICATIONS: None ESTIMATED BLOOD LOSS: < 5 ml CONTRAST: None SPECIMENS: 3 x 18 g cores were placed in saline MODERATE SEDATION TIME: 35 min PROCEDURE NOTE: The procedure, risks, benefits, and alternatives were carefully explained to the patient and written informed consent was obtained. The patient was placed prone on the CT table. A timeout was performed. A limited CT of the abdomen was performed to localize the left kidney and choose appropriate needle entry and trajectory. The patient was prepped and draped in usual sterile fashion. The skin and deeper soft tissues were anesthetized with lidocaine. Under CT guidance, a 17 gague trocar needle was advanced to the left kidney. An 18 gauge biopsy device was inserted through the trocar needle and advanced into the left lower pole of the kidney. A total of 3, 18 gague cores were performed. The specimen was placed in saline. A Gelfoam slurry was then administered through the trocar needle and into the kidney. The needle was removed. A dry dressing was applied and secured with Tegaderm. There were no immediate complications. The patient was stable after the procedure and was transferred to the post anesthesia care unit. The procedure was done under moderate sedation with a dedicated nurse for monitoring of vital signs. CT/CT biopsy renal LT Impression: CT-guided nontargeted left renal biopsy This procedure was performed by Dilshad Miller PA-C and supervised by Dr. Saavedra.
--- OUTSIDE RECORDS SUMMARY | 2023-08-25 09:21 | XMS_ITS | Continuity of Care Document ---
Author Organization [facility] Address [address] [place] [id number]- Care Team Providers Care Earth Sciences Professor Name Role Phone Daryn Duarte MD Primary Care Physician [place] [facility] [place] [id number] Date(s): 06/26/22 - 10/24/22 [facility] [address] [place] [id number] Attending Physician: Agnelito nAand MD Admitting Physician: Angelito Anand MD Referring Physician: Daryn Duarte MD Allergies, Adverse Reactions, Alerts Substance Reaction Severity Status codeine Active meperidine Active diphenhydrAMINE Active morphine 1 Active Dilaudid Active Benadryl Active Demerol HCl Active 1pt states bad reaction Medications Aerochamber See Instructions, # 1 each, Maintenance, use with MDI, 03/12/16 10:08:16, Compound Start Date: 03/12/16 Status: Ordered Aerochamber See Instructions, # 1 each, Maintenance, use with MDI, 02/27/22 10:26:00 EST, Supply, 156, cm, 02/27/22 10:16:00 EST, Height, 88.9, kg, 09/25/21 10:32:00 EDT, Dry Weight Start Date: 02/27/22 Status: Ordered Albuterol (Eqv-ProAir HFA) 90 mcg/inh inhalation aerosol 2 puffs, Inhalation, Every 4 hours, PRN NEEDED FOR WHEEZING, # 8.5 Gm, 5 Refills, Maintenance, 09/01/22 8:30:00 EDT, [facility], 17, INHALE TWO PUFFS EVERY 4 HOURS NEEDED FOR WHEEZING, 156, cm, 02/27/22 10:16:00 EST, Height, 88.9, kg, 09/25... Start Date: 09/01/22 Status: Ordered amLODIPine 2.5 mg oral tablet 2.5 mg, 1, tablet, By Mouth, Daily, # 30 tablet, Refills 0, Tot. Refills 0, Maintenance, 07/07/19 11:33:00 EDT, Do Not Route Start Date: 07/07/19 Status: Ordered BIPAP 13/8 with heated humidification BIPAP 13/8 with heated humidification, See Instructions, # 1 each, Refills 0, Tot. Refills 0, Maintenance, use overnight and naps, 09/07/19 18:32:00 EDT, Compound Start Date: 09/07/19 Status: Ordered ipratropium nasal 21 mcg/inh spray See Instructions, SPRAY ONCE INTO EACH NOSTRIL 2 (two) times a day NEEDED FOR nasal CONGESTION, # 30 mL, 4 Refills, [facility], 30, SPRAY ONCE INTO EACH NOSTRIL 2 (two) times a day NEEDED FOR nasal CONGESTION, 155, cm, 04/11/20 15:15:00 EST... Start Date: 12/18/20 Status: Ordered Lasix 40 mg oral tablet 40 mg, 1, tablet, By Mouth, Daily, Refills 0, Maintenance, 10/27/17 12:47:02 EDT Start Date: 10/27/17 Status: Ordered Linzess 145 mcg oral capsule 1 capsule = 145 mcg, By Mouth, Daily, 0 Refills, Maintenance, 11/23/18 10:08:35 EDT Start Date: 11/23/18 Status: Ordered losartan 50 mg oral tablet 50 mg, 1, tablet, By Mouth, Daily, Refills 0, Maintenance, 10/27/17 12:46:51 EDT Start Date: 10/27/17 Status: Ordered magnesium oxide 400 mg oral tablet 1 tablet, By Mouth, Daily, # 30 tablet, 6 Refills, Maintenance, 08/05/22 8:17:00 EDT, [facility], 156, cm, 02/27/22 10:16:00 EST, Height, 88.9, kg, 09/25/21 10:32:00 EDT, Dry Weight Start Date: 08/05/22 Status: Ordered rizatriptan 10 mg oral tablet 1 tablet, By Mouth, Daily, PRN NEEDED FOR MIGRAINE HEADACHE, MAY REPEAT DOSE ONCE IN 2 HOURS, # 9 each, 6 Refills, Maintenance, 08/05/22 8:17:00 EDT, [facility], 156, cm, 02/27/22 10:16:00 EST, Height, 88.9, kg, 09/25/21 10:32:00 EDT, Dry Weight Start Date: 08/05/22 Status: Ordered Symbicort 160mcg/4.5mcg Inhaler See Instructions, INHALE 2 PUFFS BY MOUTH INTO THE lungs 2 (two) times a day (IN THE MORNING AND INTHE EVENING). USE WITH spacer chamber. rinse mouth and throat after use, # 10.2 Gm, Refills 5, Maintenance, 01/21/22 14:44:00 EDT, Instructions Replace... Start Date: 01/21/22 Status: Ordered Symbicort 160mcg/4.5mcg Inhaler 2, puffs, Inhalation, 2 times a day, in the morning and the evening use with spacer chamber rinse mouth and throat after use use EVERY DAY twice a day, even days when breathing is good, # 3 each, Refills 3, Tot. Refills 3, Maintenance, 02/27/22 10:... Start Date: 02/27/22 Stop Date: 06/27/22 Status: Ordered topiramate 50 mg oral tablet See Instructions, TAKE 2 TABLETS BY MOUTH IN THE MORNING and TAKE 3 TABLETS IN THE EVENING, # 150 tablet, 6 Refills, Maintenance, 08/05/22 8:17:00 EDT, [facility], 156, cm, 02/27/22 10:16:00 EST, Height, 88.9, kg, 09/25/21 10:32:00 EDT, Dry Weight Start Date: 08/05/22 Status: Ordered Problem List Condition Confirmation Course Effective Dates Status H ealth Status Informant Adult BMI 39.0-39.9 kg/sq m Confirmed Active Excessive daytime sleepiness Confirmed Active Anxiety and depression, [facility] Confirmed Active SUN (stress urinary incontinence, female) Confirmed Active Obese class II Confirmed Active Obstructive sleep apnea Confirmed Active Osteoarthritis Confirmed Active Postcoital bleeding Confirmed Active Seizures 1 Confirmed Active 1states last attack was in 2011 Social History Social History Type Response Smoking Status Former smoker, quit more than 30 days ago; Other: Quit 2013; entered on: 07/05/18 Sex Patient Care team information Care Team Personnel Name: Gerald MATIAS, Daryn Saldivar Position: Reference Physician Member Role: PCP Address: Address: [address] [place] [address] [address] [place] [address]- Name: Fahad ESCALANTE, Esperanza Position: S RN Member Role: Primary Care Nurse Name: Natasha Lucia RN Position: S RN Member Role: Primary Care Nurse Care Team Related Persons Name: ROSE MARY CROOKS Address: home [address] [place] [id number]
--- OUTSIDE RECORDS SUMMARY | 2023-08-25 09:21 | XMS_ITS | Continuity of Care Document ---
Author Organization [facility] Address [address] [place] [address]- Care Team Providers Care Brim Plater Name Role Phone Daryn Duarte MD Primary Care Physician [place] [facility] [place]/23 [facility] [address] [place] [id number] Allergies, Adverse Reactions, Alerts Substance Reaction Severity Status codeine Active meperidine Active Demerol HCl Active diphenhydrAMINE Active morphine 1 Active Dilaudid Active Benadryl Active 1pt states bad reaction Medications Aerochamber [...] WHEEZING, # 8.5 Gm, 5 Refills, Maintenance, 03/05/23 11:50:00 EST, [facility], 17, INHALE TWO PUFFS EVERY 4 HOURS NEEDED FOR WHEEZING, 156, cm, 02/18/23 8:58:00 EST, Height, 90.9, kg, 02/18... Start Date: 03/05/23 Status: Ordered amitriptyline 10 mg oral tablet 10 mg, 1, tablet, By Mouth, Daily at supper, # 30 tablet, Refills 3, Tot. Refills 3, Maintenance, 04/06/23 14:54:00 EST, Route to Pharmacy Electronically, [place], [place] - [id number], Partial fill upon patient request if the prescri... Start Date: 04/06/23 Status: Ordered amLODIPine 2.5 mg oral tablet [...] EDT, Compound Start Date: 09/07/19 Status: Ordered CPAP Machine See Instructions, # 1 each, Refills 11, Tot. Refills 11, Maintenance, New script for CPAP and suppliesPatient in the past used J&L Auto CPAP 5cm to 20cm [id number] preferred mask interfaceall required headgear, tubing, filters, etc Dx LEANNA G47.33, 01/29... Start Date: 02/18/23 Status: Ordered CPAP Equipment See Instructions, # 1 each, Refills 11, Tot. Refills 11, Maintenance, PAP supplies Refill mask and supplies A4604 Heated Tubing/Climate line or A7037 Tubing A7038 or A7039 Filters A7036 Chin strap A7046 Humidifier Chamber A7035 Headgear A7027... Start Date: 04/30/23 Status: Ordered Gemtesa 75 mg oral tablet 1 tablet = 75 mg, By Mouth, Daily, # 30 tablet, 5 Refills, Maintenance, 05/08/23 11:49:00 EST, Tablet, [place], [place] - [id number], Partial fill upon patient request if the prescription is for a schedule II opioid drug., 156, cm, ... Start Date: 05/08/23 Status: Ordered ipratropium nasal 21 mcg/inh spray See Instructions, SPRAY ONCE INTO EACH NOSTRIL 2 (two) times a day NEEDED FOR nasal CONGESTION, # 30 mL, 4 Refills, [facility], 30, SPRAY ONCE INTO EACH NOSTRIL [...] tablet, 6 Refills, Maintenance, 08/05/22 8:17:00 EDT, [facility], 156, cm, 02/27/22 10:16:00 EST, Height, 88.9, kg, 09/25/21 10:32:00 EDT, Dry Weight Start Date: 08/05/22 Status: Ordered nystatin topical 416383 u/gm cream 1 application, Topically, 2 times a day, # 30 Gm, 1 Refills, Maintenance, 02/18/23 9:35:00 EST, Cream, [place], [place] - [id number], Partial fill upon patient request if the prescription is for a schedule II opioid drug., 1 applicati... Start Date: 02/18/23 Stop Date: 03/18/23 Status: Ordered rizatriptan 10 mg oral tablet 1 tablet, By Mouth, Daily, PRN NEEDED FOR MIGRAINE HEADACHE, MAY REPEAT DOSE ONCE IN 2 HOURS, # 9 each, 6 Refills, Maintenance, 03/05/23 13:15:00 EST, [facility], 156, cm, 02/18/23 8:58:00 EST, Height, 90.9, kg, 02/18/23 8:58:00 EST, Dry Weight Start Date: 03/05/23 Status: Ordered Symbicort 160mcg/4.5mcg Inhaler See Instructions, [...] Date: 02/27/22 Stop Date: 06/27/22 Status: Ordered Symbicort 160mcg/4.5mcg Inhaler 2, puffs, Inhalation, 2 times a day, # 1 each, Refills 6, Tot. Refills 6, Maintenance, 02/16/23 14:13:00 EST, Aerosol, Route to Pharmacy Electronically, [id number], [place], [place] - [phone], 156, cm, ... Start Date: 02/16/23 Stop Date: 09/14/23 Status: Ordered trospium 60 mg oral capsule, extended release 1 capsule = 60 mg, By Mouth, Daily in AM, # 30 capsule, 3 Refills, Maintenance, 04/21/23 13:53:00 EST, [facility], [place], [place] - [id number], Partial fill upon patient request ifthe prescription is for a schedule II opioid drug.,... Start Date: 04/21/23 Status: Ordered Problem List Condition Confirmation Course Effective Dates Status H ealth Status Informant Adult BMI 39.0-39.9 kg/sq m Confirmed Active Excessive daytime sleepiness Confirmed Active Anxiety and depression, [facility] Confirmed Active SUN (stress urinary incontinence, female) Confirmed Active Obstructive sleep apnea Confirmed Active Osteoarthritis Confirmed Active Postcoital bleeding Confirmed Active Seizures 1 Confirmed Active Severe obesity (BMI 35.0-39.9) with comorbidity Confirmed Active 1states last attack was in 2011 Social History Social History Type Response Smoking Status Former smoker, quit more than 30 days ago; Other: Quit 2013; entered on: 07/05/18 Sex Patient Care team information Care Team Personnel Name: Gerald MATIAS, Daryn Saldivar Position: Reference Physician Member Role: PCP Address: Address: [address] [place] [address] Drive [address] [place] [id number] Name: Esperanza Vásquez RN Position: [facility] Nurse Member Role: Primary Care Nurse Name: Natasha Lucia RN Position: [facility] RN Member Role: Primary Care Nurse Care Team Related Persons Name: ROSE MARY CROOKS Address: home [address] [place] [address]
--- OUTSIDE RECORDS SUMMARY | 2023-08-25 09:21 | XMS_ITS | Continuity of Care Document ---
Author Organization [facility] Address [address] [facility], [address] Floor, [address] [place] [address]- Care Team Providers Care Ditching Machine Operator Name Role Phone Daryn Duarte MD Primary Care Physician [phone] [place] [facility] [place]/23 [facility] [address] [facility], 3rd Floor, [address] [place] [address] Attending Physician: Admtr, Natalia Admitting Physician: Admtr, Ar8 Referring Physician: Admtr, Ar8 Allergies, Adverse Reactions, Alerts Substance Reaction Severity [...] 04/06/23 14:54:00 EST, Route to Pharmacy Electronically, [facility] [place] [place] - [phone], Partial fill upon patient request if the [...] used J&L Auto CPAP 5cm to 20cm [id number] preferred mask interfaceall required headgear, tubing, filters, etc Dx LEANNA G47.33, 01/29... Start Date: 02/18/23 Status: Ordered CPAP Equipment See Instructions, # 1 each, Refills 11, Tot. Refills 11, Maintenance, PAP supplies Refill mask and supplies A4604 Heated Tubing/Climate line or A7037 Tubing A7038 or A7039 Filters A7036 Chin strap A7046 Humidifier Chamber A7035 Headgear A7027... Start Date: 04/30/23 Status: Ordered ipratropium nasal 21 mcg/inh spray See Instructions, SPRAY ONCE INTO EACH NOSTRIL 2 (two) times a day NEEDED FOR nasal CONGESTION, # 30 mL, 4 Refills, [facility], 30, SPRAY ONCE INTO EACH [...] tablet, 6 Refills, Maintenance, 08/05/22 8:17:00 EDT, [facility], 156, cm, 02/27/22 10:16:00 EST, Height, 88.9, kg, 09/25/21 10:32:00 EDT, Dry Weight Start Date: 08/05/22 Status: Ordered nystatin topical [id number] u/gm cream 1 application, Topically, 2 times a day, # 30 Gm, 1 Refills, Maintenance, 02/18/23 9:35:00 EST, Cream, [facility] [place] [place] - [phone], Partial fill upon patient request if the prescription is for a schedule II opioid drug., 1 applicati... Start Date: 02/18/23 Stop Date: 03/18/23 Status: Ordered rizatriptan 10 mg oral tablet 1 tablet, By Mouth, Daily, PRN NEEDED FOR MIGRAINE HEADACHE, MAY REPEAT DOSE ONCE IN 2 HOURS, # 9 each, 6 Refills, Maintenance, 03/05/23 13:15:00 EST, [facility], 156, cm, 02/18/23 8:58:00 EST, Height, [...] 14:13:00 EST, Aerosol, Route to Pharmacy Electronically, [id number], [place], [place] - [phone], 156, cm, ... Start Date: 02/16/23 Stop Date: 09/14/23 Status: Ordered trospium 60 mg oral capsule, extended release 1 capsule = 60 mg, By Mouth, Daily in AM, # 30 capsule, 3 Refills, Maintenance, 04/21/23 13:53:00 EST, [facility], [place], [place] - [phone], Partial fill upon patient request ifthe prescription is for a schedule II opioid drug.,... Start Date: 04/21/23 Status: Ordered Problem List Condition Confirmation Course Effective Dates Status H ealth Status Informant Adult BMI 39.0-39.9 kg/sq m Confirmed Active Excessive daytime sleepiness Confirmed Active Anxiety and depression, [facility] Confirmed Active SUN (stress urinary incontinence, [...] Care team information Care Team Personnel Name: Daryn Duarte MD Position: Reference Physician Member Role: PCP Address: Address: [address] [place] [address] Drive [address] [place] [address]- [place] Name: Fahad ESCALANTE, Esperanza Position: [facility] TRIANA Nurse Member Role: Primary Care Nurse Name: Natasha Lucia RN Position: [facility] RN Member Role: Primary Care Nurse Care Team Related Persons Name: ROSE MARY CROOKS Address: home [address] [place] [id number]
--- OUTSIDE RECORDS SUMMARY | 2023-08-25 09:21 | XMS_ITS | Continuity of Care Document ---
Author Organization [facility] Address [address] [place] [address]- Care Team Providers Care Scraper Tender Name Role Phone Daryn Duarte MD Primary Care Physician Encounter [facility]CT R [id number] Date(s): 02/25/22 - 06/25/22 [facility] [address] [place] [address] Attending Physician: Angelito Anand MD Admitting Physician: Angelito Anand MD Referring [...] WHEEZING, # 8.5 Gm, 5 Refills, Maintenance, 02/26/22 19:26:00 EST, [facility], 17, INHALE 2 PUFFS BY MOUTH INTO THE lungs EVERY 4 HOURS NEEDED FOR WHEEZING, 151.2, cm, 09/25/21 10:32:00 EDT... Start Date: 02/26/22 Status: Ordered amLODIPine 2.5 mg oral tablet [...] nasal CONGESTION, # 30 mL, 4 Refills, [facility], 30, SPRAY ONCE INTO EACH [...] Daily, # 30 tablet, 6 Refills, Maintenance, 12/23/21 10:00:00 EDT, [facility], 151.2, cm, 09/25/21 10:32:00 EDT, Height, 88.9, kg, 09/25/21 10:32:00 EDT, Dry Weight Start Date: 12/23/21 Status: Ordered rizatriptan 10 mg oral tablet 1 tablet, By Mouth, Daily, PRN NEEDED FOR MIGRAINE HEADACHE, MAY REPEAT DOSE ONCE IN 2 HOURS, # 9 each, 6 Refills, Maintenance, 12/23/21 10:00:00 EDT, [facility], 151.2, cm, 09/25/21 10:32:00EDT, Height, 88.9, kg, 09/25/21 10:32:00 EDT, Dry W... Start Date: 12/23/21 Status: Ordered Symbicort 160mcg/4.5mcg Inhaler See Instructions, [...] EVENING, # 150 tablet, 6 Refills, Maintenance, 12/23/21 10:00:00 EDT, [facility], 151.2, cm, 09/25/21 10:32:00 EDT, Height, 88.9, kg, 09/25/21 10:32:00 EDT, Dry We... Start Date: 12/23/21 Status: Ordered Problem List Condition Confirmation Course Effective Dates Status H ealth Status Informant Adult BMI 39.0-39.9 kg/sq m Confirmed Active Excessive daytime sleepiness Confirmed Active Anxiety and depression, [facility] Confirmed Active SUN (stress urinary incontinence, [...] Physician Member Role: PCP Address: Address: [address] [place] [address] [place] [address]- Name: Esperanza Vásquez RN Position: S RN Member Role: Primary Care Nurse Name: Natasha Lucia RN Position: S RN Member Role: Primary Care Nurse Care Team Related Persons Name: ROSE MARY CROOKS Address: home [address] [place] [id number]
--- OUTSIDE RECORDS SUMMARY | 2023-08-25 09:21 | XMS_ITS | Continuity of Care Document ---
Author Organization [facility] Address [address] [facility], [place], [place] [address]- Care Team Providers Care Sandfill Operator Name Role Phone Daryn Duarte MD Primary Care Physician [phone] Encounter [facility] Date(s): 02/18/23 - 02/25/23 [facility] [address] [facility], [address] [place] [address]- Attending Physician: Michelle Brandon MD Referring Physician: Daryn Duarte MD Allergies, [...] used J&L Auto CPAP 5cm to 20cm [id number] preferred mask interfaceall required headgear, tubing, filters, etc Dx LEANNA G47.33, 01/29... Start Date: 02/18/23 Status: Ordered ipratropium nasal 21 mcg/inh spray See Instructions, SPRAY ONCE INTO EACH NOSTRIL 2 (two) times a day NEEDED FOR nasal CONGESTION, # 30 mL, 4 Refills, [facility], 30, SPRAY ONCE INTO EACH [...] tablet, 6 Refills, Maintenance, 08/05/22 8:17:00 EDT, [facility], 156, cm, 02/27/22 10:16:00 EST, Height, 88.9, kg, 09/25/21 10:32:00 EDT, Dry Weight Start Date: 08/05/22 Status: Ordered nystatin topical 450778 u/gm cream 1 application, Topically, 2 times a day, # 30 Gm, 1 Refills, Maintenance, 02/18/23 9:35:00 EST, Cream, [facility] [place], [place] - [phone], Partial fill upon patient request if the prescription is for a schedule II opioid drug., 1 applicati... Start Date: 02/18/23 Stop Date: 03/18/23 Status: Ordered rizatriptan 10 mg oral tablet 1 tablet, By Mouth, Daily, PRN NEEDED FOR MIGRAINE HEADACHE, MAY REPEAT DOSE ONCE IN 2 HOURS, # 9 each, 6 Refills, Maintenance, 08/05/22 8:17:00 EDT, [facility], 156, cm, 02/27/22 10:16:00 EST, [...] 14:13:00 EST, Aerosol, Route to Pharmacy Electronically, [id number], [facility] [place], [place] - [phone], 156, cm, ... Start Date: 02/16/23 Stop Date: 09/14/23 Status: Ordered topiramate 50 mg oral tablet See Instructions, TAKE 2 TABLETS BY MOUTH IN THE MORNING and TAKE 3 TABLETS IN THE EVENING, # 150 tablet, 6 Refills, Maintenance, 08/05/22 8:17:00 EDT, [facility], 156, cm, 02/27/22 10:16:00 EST, Height, 88.9, kg, 09/25/21 10:32:00 EDT, Dry Weight Start Date: 08/05/22 Status: Ordered Problem List Condition Confirmation Course Effective Dates Status H ealth Status Informant Adult BMI 39.0-39.9 kg/sq m Confirmed Active Excessive daytime sleepiness Confirmed Active Anxiety and depression, [facility] Confirmed Active SUN (stress urinary incontinence, female) Confirmed Active Obstructive sleep apnea Confirmed Active Osteoarthritis Confirmed Active Postcoital bleeding Confirmed Active Seizures 1 Confirmed Active Severe obesity (BMI 35.0-39.9) with comorbidity Confirmed Active 1states last attack was in 2011 Vital Signs Most recent to oldest [Reference Range]: 1 Height 156 cm (02/18/23 8:58 AM) Weight 90.9 kg (02/18/23 8:58 AM) Pulse Rate [55-90 bpm] 47 bpm *L* (02/18/23 8:58 AM) Body Mass Index [18.5-24.99 kg/m2] 37.35 kg/m2 *>HHI* (02/18/23 8:58 AM) Blood Pressure [90-138/55-84 mm Hg] 154/ 77mm Hg *H* (02/18/23 8:58 AM) Blood pressure sites Arm, right (02/18/23 8:58 AM) Dry Weight 90.9 kg (02/18/23 8:58 AM) Weight Obtained Via Standing scale (02/18/23 8:58 AM) Dry Weight Obtained Via Standing scale (02/18/23 8:58 AM) Social History Social History Type Response Smoking Status Former smoker, quit more than 30 days ago; Other: Quit 2013; entered on: 07/05/18 Sex Patient Care team information Care Team Personnel Name: Gerald MATIAS, Daryn Saldivar Position: Reference Physician Member Role: PCP Address: Address: [address] [place] [id number] Name: Fahad ESCALANTE, Esperanza Position: [facility] Nurse Member Role: Primary Care Nurse Name: Natasha Lucia RN Position: S RN Member Role: Primary Care Nurse Care Team Related Persons Name: CROOKSROSE MARY Taylor Address: home [address] [place] [id number]
--- OUTSIDE RECORDS SUMMARY | 2023-08-25 09:21 | XMS_ITS | Continuity of Care Document ---
Author Organization [facility] Address [address] [facility], [address] [address]- Care Team Providers Care Supervisor Polishing Name Role Phone Daryn Duarte MD Primary Care Physician Encounter [facility] Date(s): 05/08/23 - 07/05/23 [facility] [address] [facility], [address] [place], [place] [address] Attending Physician: Talita Sanz MD Admitting Physician: Talita Sanz MD Referring Physician: Daryn Duarte MD Allergies, Adverse Reactions, Alerts Substance Reaction Severity Status codeine Active meperidine Active diphenhydrAMINE Active morphine 1 Active Dilaudid Active Demerol HCl Active Benadryl Active 1pt states bad reaction [...] 04/06/23 14:54:00 EST, Route to Pharmacy Electronically, [place], [place] - [phone], Partial fill upon patient request if the prescri... Start Date: 04/06/23 Status: Ordered amLODIPine 10 mg oral tablet Take 1 tablet (10 mg total) by mouth 1 (one) time each day Start Date: 06/17/23 Status: Ordered BIPAP 13/8 with heated humidification [...] used J&L Auto CPAP 5cm to 20cm [id number] preferred mask interfaceall required headgear, tubing, filters, etc Dx LEANNA G47.33, 01/29... Start Date: 02/18/23 Status: Ordered CPAP Equipment See Instructions, # 1 each, Refills 11, Tot. Refills 11, Maintenance, PAP supplies Refill mask and supplies A4604 Heated Tubing/Climate line or A7037 Tubing A7038 or A7039 Filters A7036 Chin strap A7046 Humidifier Chamber A7035 Headgear A7027... Start Date: 04/30/23 Status: Ordered diclofenac 1% topical gel = 2 Gm, Topically, 4 times a day, # 240 Gm, 0 Refills, Maintenance, 06/21/23 11:17:00 EDT, Gel, [place], [place] - [phone], Partial fill upon patient request if the prescription is for a schedule II opioid drug., 155, cm, 06/21/23... Start Date: 06/21/23 Status: Ordered Farxiga 10 mg oral tablet Take 10 mg by mouth 1 (one) time each day in the morning Start Date: 06/17/23 Status: Ordered Gemtesa 75 mg oral tablet 1 tablet = 75 mg, By Mouth, Daily, # 30 tablet, 5 Refills, Maintenance, 05/08/23 11:49:00 EST, Tablet, [place], [place] - [phone], Partial fill upon patient request if the prescription is for a schedule II opioid drug., 156, cm, 01... Start Date: 05/08/23 Status: Ordered lansoprazole 30 mg oral enteric coated capsule 1 capsule = 30 mg, By Mouth, 2 times a day, # 60 capsule, 0 Refills, Maintenance, 06/17/23 20:38:00EDT, [facility], Partial fill upon patient request if the prescription is for a schedule II opioid drug. Start Date: 06/17/23 Status: Ordered Linzess 145 mcg oral capsule 1 capsule = 145 mcg, By Mouth, Daily, 0 Refills, Maintenance, 11/23/18 10:08:35 EDT Start Date: 11/23/18 Status: Ordered magnesium oxide 400 mg oral tablet 1 tablet, By Mouth, Daily, # 30 tablet, 6 Refills, Maintenance, 08/05/22 8:17:00 EDT, [facility], 156, cm, 02/27/22 10:16:00 EST, Height, 88.9, kg, 09/25/21 10:32:00 EDT, Dry Weight Start Date: 08/05/22 Status: Ordered nystatin topical 249274 u/gm cream 1 application, Topically, 2 times a day, # 30 Gm, 1 Refills, Maintenance, 02/18/23 9:35:00 EST, Cream, [place], [place] - [phone], Partial fill upon patient request if the prescription is for a schedule II opioid drug., 1 applicati... Start Date: 02/18/23 Stop Date: 03/18/23 Status: Ordered rizatriptan 10 mg oral tablet 1 tablet, By Mouth, Daily, PRN NEEDED FOR MIGRAINE HEADACHE, MAY REPEAT DOSE ONCE IN 2 HOURS, # 9 each, 6 Refills, Maintenance, 03/05/23 13:15:00 EST, [facility], 156, cm, 02/18/23 8:58:00 EST, Height, 90.9, kg, 02/18/23 8:58:00 EST, Dry Weight Start Date: 03/05/23 Status: Ordered Symbicort 160mcg/4.5mcg Inhaler 2, puffs, Inhalation, 2 times a day, # 1 each, Refills 6, Tot. Refills 6, Maintenance, 02/16/23 14:13:00 EST, Aerosol, Route to Pharmacy Electronically, [id number], [place], [place] - [phone], 156, cm, .. Start Date: 02/16/23 Stop Date: 09/14/23 Status: Ordered topiramate 50 mg oral tablet TAKE 2 TABLETS BY MOUTH IN THE MORNING and TAKE 3 TABLETS IN THE EVENING Start Date: 06/17/23 Status: Ordered trospium 60 mg oral capsule, extended release 1 capsule = 60 mg, By Mouth, Daily in AM, # 30 capsule, 3 Refills, Maintenance, 04/21/23 13:53:00 EST, CR Capsule, [place], [place] - [phone], Partial fill upon patient request ifthe prescription is for a schedule II opioid drug.,... Start Date: 04/21/23 Status: Ordered Problem List Condition Confirmation Course Effective Dates Status H ealth Status Informant Adult BMI 39.0-39.9 kg/sq m Confirmed Active Excessive daytime sleepiness Confirmed Active Anxiety and depression, [facility] Confirmed Active SUN (stress urinary incontinence, [...] Reference Physician Member Role: PCP Address: Address: [address] [place] [address] Drive [address] [place] [id number] Name: Kusum Oviedo RN Position: S RN Member Role: Primary Care Nurse Name: Esperanza Vásquez RN Position: S RN Member Role: Primary Care Nurse Name: Natasha Lucia RN Position: S RN Member Role: Primary Care Nurse Name: Petey Hernandez MD Position: Janna Renal MD Member Role: Lifetime Consulting Physician Address: Address: [address] [place] [address] [facility] [address] Care Team Related Persons Name: ROSE MARY CROOKS Address: [place] [address]
--- OUTSIDE RECORDS SUMMARY | 2023-08-25 09:22 | XMS_ITS | Continuity of Care Document ---
Author Organization [facility] Address [address] [place] [id number]- Care Team Providers Care Proposal Analyst Name Role Phone Daryn Duarte MD Primary Care Physician [phone] Encounter [facility] Date(s): 03/11/23 - 04/10/23 [facility] [address] [place] [address] Allergies, Adverse Reactions, Alerts Substance [...] 04/06/23 14:54:00 EST, Route to Pharmacy Electronically, [facility] - [place], [place] - [phone], Partial fill upon patient request if the [...] used J&L Auto CPAP 5cm to 20cm [id number] preferred mask interfaceall required headgear, tubing, filters, etc Dx LEANNA G47.33, 01/29... Start Date: 02/18/23 Status: Ordered ipratropium nasal 21 mcg/inh spray See Instructions, SPRAY ONCE INTO EACH NOSTRIL 2 (two) times a day NEEDED FOR nasal CONGESTION, # 30 mL, 4 Refills, [facility], 30, SPRAY ONCE INTO EACH [...] tablet, 6 Refills, Maintenance, 08/05/22 8:17:00 EDT, [facility], 156, cm, 02/27/22 10:16:00 EST, Height, 88.9, kg, 09/25/21 10:32:00 EDT, Dry Weight Start Date: 08/05/22 Status: Ordered nystatin topical 347130 u/gm cream 1 application, Topically, 2 times a day, # 30 Gm, 1 Refills, Maintenance, 02/18/23 9:35:00 EST, Cream, [facility] [place], [place] - [phone], Partial fill upon patient request if the prescription is for a schedule II opioid drug., 1 applicati... Start Date: 02/18/23 Stop Date: 03/18/23 Status: Ordered rizatriptan 10 mg oral tablet 1 tablet, By Mouth, Daily, PRN NEEDED FOR MIGRAINE HEADACHE, MAY REPEAT DOSE ONCE IN 2 HOURS, # 9 each, 6 Refills, Maintenance, 03/05/23 13:15:00 EST, [facility], 156, cm, 02/18/23 8:58:00 EST, [...] 14:13:00 EST, Aerosol, Route to Pharmacy Electronically, [id number], [facility] [place], [place] - [id number], 156, cm, . Start Date: 02/16/23 Stop Date: 09/14/23 Status: Ordered Problem List Condition Confirmation Course Effective Dates Status H ealth Status Informant Adult BMI 39.0-39.9 kg/sq m Confirmed Active Excessive daytime sleepiness Confirmed Active Anxiety and depression, [facility] Confirmed Active SUN (stress urinary incontinence, [...] team information Care Team Personnel Name: Gerald AMTIAS, Daryn Saldivar Position: Reference Physician Member Role: PCP Address: Address: [address] [place] [address] [place] [address]- Name: Fahad ESCALANTE, Esperanza Position: Janna TRIANA Nurse Member Role: Primary Care Nurse Name: Natasha Lucia RN Position: S RN Member Role: Primary Care Nurse Care Team Related Persons Name: ROSE MARY CROOKS Address: home [address] [place] [address]
--- OUTSIDE RECORDS SUMMARY | 2023-08-25 09:22 | XMS_ITS | Continuity of Care Document ---
Author Organization [facility] Address [address] [place] [address]- Care Team Providers Care Clinical Pharmacy Manager Name Role Phone Daryn Duarte MD Primary Care Physician [place] [facility] [place]s): 02/29/20 - 06/22/20 [facility] [address] [place] [address] Attending Physician: Zack Whitlock MD Admitting Physician: Zack Whitlock MD Referring Physician: Terrence Galvan MD Allergies, Adverse Reactions, Alerts Substance Reaction Severity Status codeine Active meperidine Active diphenhydrAMINE Active morphine 1 Active Dilaudid Active Benadryl Active Demerol HCl Active 1pt states bad reaction Medications Aerochamber See Instructions, # 1 each, Maintenance, use with MDI, 03/12/16 10:08:16, Compound Start Date: 03/12/16 Status: Ordered albuterol CFC free 90 mcg/inh inhalation aerosol 2, puffs, Inhalation, Every 4 hours, PRN, # 1 each, Refills 5, Tot. Refills 5, Maintenance, 04/09/20 9:34:00 EST, Aerosol, Route to Pharmacy Electronically, [id number], [place], [place] - [id number], 155, cm,... Start Date: 04/09/20 Status: Ordered amLODIPine 2.5 mg oral tablet [...] ipratropium nasal 21 mcg/inh spray See Instructions, PRN Nasal Congestion, 1 spray each nostril BID, # 1 each, 4 Refills, Maintenance,09/07/19 14:10:00 EDT, [place], [place] -, 1 spray each nostril BID,PRN:Nasal Congestion, 155, cm, 09/07/19 13:51:00 EDT, Height, 94,... Start Date: 09/07/19 Status: Ordered Lasix 40 mg oral tablet [...] magnesium oxide 400 mg oral tablet 1 tablet = 400 mg, By Mouth, Daily, for 30 days, # 30 tablet, 6 Refills, Acute 11/28/20 8:50:00 EDT, 05/02/20 8:50:00 EST, Tablet, [place], [place] - [phone], Partial fill upon patient request if the prescription is for a schedule... Start Date: 05/02/20 Stop Date: 11/28/20 Status: Ordered rizatriptan 10 mg oral tablet 1 tablet, By Mouth, Daily, PRN NEEDED FOR MIGRAINE HEADACHE, for 30 days, MAY REPEAT DOSE ONCE IN 2 HOURS, # 9 tablet, 6 Refills, Acute 11/28/20 8:50:00 EDT, 05/02/20 8:50:00 EST, [place], [place] - [id number], 155, cm, 04/11/20 15... Start Date: 05/02/20 Stop Date: 11/28/20 Status: Ordered Symbicort 160mcg/4.5mcg Inhaler 2, puffs, Inhalation, 2 times a day, in the morning and the evening use with spacer chamber rinse mouth and throat after use, j 45.40, # 1 each, Refills 5, Tot. Refills 5, Maintenance, 01/02/20 8:32:00 EDT, Aerosol, Route to Pharmacy Electronically,... Start Date: 01/02/20 Status: Ordered topiramate 50 mg oral tablet See Instructions, TAKE TWO TABLET BY MOUTH IN THE MORNING AND TAKE 3 TABLETS BY MOUTH IN THE EVENING, # 150 tablet, 6 Refills, 05/02/20 8:50:00 EST, [place], [place] - [phone], 155, cm, 04/11/20 15:15:00 EST, Height, 89, kg, 03/07/... Start Date: 05/02/20 Status: Ordered Ventolin HFA 108 mcg/inh inhalation aerosol with adapter 2 puffs, Inhalation, Every 4 hours, PRN for wheezing, # 1 each, 5 Refills, Maintenance, 09/28/19 8:27:00 EDT, Aerosol, [place], [place] -, 155, cm, 09/07/19 13:51:00 EDT, Height, 94,kg, 11/23/18 12:52:00 EDT, Dry Weight Start Date: 09/28/19 Status: Ordered Problem List Condition Effective Dates Status Health Status Inform ant Adult BMI 39.0-39.9 kg/sq m(Confirmed) Active Excessive daytime sleepiness(Confirmed) Active Anxiety and depression, [facility](Confirmed) Active SUN (stress urinary incontin ence, female)(Confirmed) Active Obstructive sleep apnea(Confirmed) Active Osteoarthritis(Confirmed) Active Postcoital bleeding(Confirmed) Active Seizures(Confirmed) 1 Active 1states last attack was in 2011 Social History Social History Type Response Smoking Status Former smoker, quit more than 30 days ago; Other: Quit 2013; entered on: 07/05/18 Sex
--- OUTSIDE RECORDS SUMMARY | 2023-08-25 09:22 | XMS_ITS | Continuity of Care Document ---
Author Organization [facility] Address [address], [address] [place] [address]- Care Team Providers Care Social Problems Specialist Name Role Phone Daryn Duarte MD Primary Care Physician Encounter [facility] Date(s): 05/24/19 - 08/06/19 [facility] [address], [address] [place] [address]- [facility] Attending Physician: Jose Luis Clements MD Admitting Physician: Jose Luis Clements MD Allergies, Adverse Reactions, Alerts Substance Reaction Severity Status codeine Active meperidine Active diphenhydrAMINE Active morphine 1 Active Dilaudid Active Benadryl Active Demerol HCl Active 1pt states bad reaction Medications Aerochamber See Instructions, # 1 each, Maintenance, use with MDI, 03/12/16 10:08:16, Compound Start Date: 03/12/16 Status: Ordered amLODIPine 2.5 mg oral tablet 2.5 mg, 1, tablet, By Mouth, Daily, # 30 tablet, Refills 0, Tot. Refills 0, Maintenance, 07/07/19 11:33:00 EDT, Do Not Route Start Date: 07/07/19 Status: Ordered Lasix 40 mg oral tablet [...] 12:46:51 EDT Start Date: 10/27/17 Status: Ordered Multivitamin Daily, 0 Refills, Maintenance, 08/24/18 13:18:09 EDT Start Date: 08/24/18 Status: Ordered Proventil HFA 90 mcg/inh inhalation aerosol with adapter 2, puffs, Inhalation, 4 times a day, PRN, # 18 Gm, Refills 11, Tot. Refills 11, Maintenance, 09/10/18 9:45:09 EDT, Aerosol, Route to Pharmacy Electronically, [id number], [facility] - [place], [place] - Start Date: 09/10/18 Stop Date: 09/05/19 Status: Ordered SUMAtriptan 100 mg oral tablet 1 tablet, By Mouth, Daily, PRN NEEDED FOR MIGRAINE HEADACHE, MAY REPEAT DOSE IN 2 HOURS IF needed., # 9 each, 5 Refills, Soft Stop, 07/27/19 10:17:00 EDT, [facility], 155, cm, 02/25/19 14:47:00 EST, Height, 94, kg, 11/23/18 12:52:00 EDT, Dry W... Start Date: 07/27/19 Status: Ordered Symbicort 160mcg/4.5mcg Inhaler 2, puffs, Inhalation, 2 times a day, in the morning and the evening use with spacer chamber rinse mouth and throat after use, j 45.40, # 1 each, Refills 6, Tot. Refills 6, Maintenance, 05/16/19 7:48:00 EST, Aerosol, Route to Pharmacy Electronically,... Start Date: 05/16/19 Status: Ordered Topamax 50 mg oral tablet See Instructions, Take 1 tab in am, and take 3 tab in pm, # 120 tablet, 6 Refills, Maintenance, 01/20/19 14:19:00 EDT, Tablet Start Date: 01/20/19 Status: Ordered Ventolin HFA 108 mcg/inh inhalation aerosol with adapter 2 puffs, Inhalation, Every 4 hours, PRN for wheezing, # 18 Gm, 0 Refills, Maintenance, 05/11/18 13:28:23 EST, Aerosol Start Date: 05/11/18 Status: Ordered Problem List Condition Effective Dates Status Health Status Inform ant Adult BMI 39.0-39.9 kg/sq m(Confirmed) Active Sleep related hypoventilation/hypoxemia in other disease(Confirmed) Active Anxiety and depression, [facility](Confirmed) Active SUN (stress urinary incontin ence, female)(Confirmed) Active Obstructive sleep apnea(Confirmed) Active Osteoarthritis(Confirmed) Active Postcoital bleeding(Confirmed) Active Seizures(Confirmed) 1 Active 1states last attack was in 2011 Social History Social History Type Response Smoking Status Former smoker, quit more than 30 days ago; Other: Quit 2013; entered on: 07/05/18 Sex
--- OUTSIDE RECORDS SUMMARY | 2023-08-25 09:22 | XMS_ITS | Continuity of Care Document ---
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 Suction Dredge Dumping Supervisor Name Role Phone Daryn Duarte MD Primary Care Physician [place] [facility] [place] 06/17/23 - 06/21/[address] [id number] Encounter Diagnosis Headache(Final) - 06/17/23 Blurry vision, bilateral(Final) - 06/17/23 Shoulder pain, right(Final) - 06/17/23 Left knee pain(Final) - 06/17/23 Neck pain(Final) - 06/17/23 Jaw pain(Final) - 06/17/23 Discharge Disposition: A-D/C Home Attending Physician: Diya MATIAS, [facility] Admitting Physician: Elizabeth Calhoun DO Referring Physician: Not on Staff, Referring MD Allergies, Adverse Reactions, Alerts Substance Reaction Severity Status codeine Active meperidine Active Demerol HCl Active diphenhydrAMINE Active morphine 1 Active Dilaudid Active Benadryl Active 1pt states bad reaction Medications Acetaminophen Tablet 650 mg, Tablet, By Mouth, Every 4 hours, PRN for Pain , Mild, Temperature Greater than 100.5, Routine, 06/17/23 19:10:00 EDT Start Date: 06/17/23 Stop Date: 06/21/23 Status: Discontinued Aerochamber See Instructions, # 1 each, Maintenance, [...] Gm, 5 Refills, Maintenance, 03/05/23 11:50:00 EST, [facility], 17, INHALE TWO PUFFS EVERY 4 HOURS NEEDED FOR WHEEZING, 156, cm, 02/18/23 8:58:00 EST, Height, 90.9, kg, 02/18... Start Date: 03/05/23 Status: Ordered amitriptyline 10 mg oral tablet 10 mg, 1, tablet, By Mouth, Daily at supper, # 30 tablet, Refills 3, Tot. Refills 3, Maintenance, 04/06/23 14:54:00 EST, Route to Pharmacy Electronically, [place], [place] - [phone], Partial fill upon patient request if the prescri... Start Date: 04/06/23 Status: Ordered amLODIPine 10 mg oral tablet 10 mg, Tablet, By Mouth, Hold for: systolic <130, 06/21/23 9:00:00 EDT Start Date: 06/21/23 Stop Date: 06/21/23 Status: Completed amLODIPine 10 mg oral tablet Take 1 [...] used J&L Auto CPAP 5cm to 20cm [id number] preferred mask interfaceall required headgear, tubing, filters, [...] 0 Refills, Maintenance, 06/21/23 11:17:00 EDT, Gel, [facility] [id number], Partial fill upon patient request if the [...] 5 Refills, Maintenance, 05/08/23 11:49:00 EST, Tablet, [place], [place] - [phone], Partial fill upon patient request if the [...] tablet, 6 Refills, Maintenance, 08/05/22 8:17:00 EDT, [facility], 156, cm, 02/27/22 10:16:00 EST, Height, 88.9, kg, 09/25/21 10:32:00 EDT, Dry Weight Start Date: 08/05/22 Status: Ordered nystatin topical [id number] u/gm cream 1 application, Topically, 2 times a day, # 30 Gm, 1 Refills, Maintenance, 02/18/23 9:35:00 EST, Cream, [facility] [phone], Partial fill upon patient request if the prescription is for a schedule II opioid drug., 1 applicati... Start Date: 02/18/23 Stop Date: 03/18/23 Status: Ordered rizatriptan 10 mg oral tablet 1 tablet, By Mouth, Daily, PRN NEEDED FOR MIGRAINE HEADACHE, MAY REPEAT DOSE ONCE IN 2 HOURS, # 9 each, 6 Refills, Maintenance, 03/05/23 13:15:00 EST, [facility], 156, cm, 02/18/23 8:58:00 EST, Height, 90.9, kg, 02/18/23 8:58:00 EST, Dry Weight Start Date: 03/05/23 Status: Ordered Symbicort 160mcg/4.5mcg Inhaler 2, puffs, Inhalation, 2 times a day, # 1 each, Refills 6, Tot. Refills 6, Maintenance, 02/16/23 14:13:00 EST, Aerosol, Route to Pharmacy Electronically, [id number], [place], [place] - [phone], 156, cm, ... Start Date: 02/16/23 Stop [...] Refills, Maintenance, 04/21/23 13:53:00 EST, CR Capsule, [facility] [phone], Partial fill upon patient request ifthe prescription is for a schedule II opioid drug.,... Start Date: 04/21/23 Status: Ordered Problem List Condition Confirmation Course Effective Dates Status H ealth Status Informant Adult BMI 39.0-39.9 kg/sq m Confirmed Active Excessive daytime sleepiness Confirmed Active Anxiety and depression, [facility] Confirmed Active SUN (stress urinary incontinence, female) Confirmed Active Obstructive sleep apnea Confirmed Active Osteoarthritis Confirmed Active Postcoital bleeding Confirmed Active Seizures 1 Confirmed Active Severe obesity (BMI 35.0-39.9) with comorbidity Confirmed Active 1states last attack was in 2011 Results Radiology Reports * Exam Date Time Procedure Performing Provider Status 06/21/23 10:24 AM US Retroperitoneum Comp DeFranzo , Am hanny; Auth (Verified) Notes: (US Retroperitoneum Comp) Reason For Exam: BHAVIN on CKD;Other: RESULT: US Retroperitoneum Comp US Retroperitoneum Comp Reason: Other:; BHAVIN on CKD; Clinical Question(s): Chronic Renal Failure; Order Comment: US Retroperitoneum Complete Prep COMPARISON: CT abdomen and pelvis 05/10/2012. FINDINGS: Right kidney: 11.0 cm in length. No hydronephrosis. Normal parenchymal thickness and echotexture. No stones. Mildly lobulated contour. No suspicious mass. Left kidney: 10.1 cm in length. No hydronephrosis. Normal parenchymal thickness and echotexture. Nostones. Mildly lobulated contour. No suspicious mass. Urinary bladder: Normal morphology. No stone, mass, wall thickening or debris. IMPRESSION: Normal kidneys and urinary bladder. WSN: [id number] Ordering Physician: Crow Keane Dictated By: Irvin Contreras MD Dictated Date/Time: 06/21/23 10:30 a Reviewed By: Irvin Contreras MD Signed By: Irvin Contreras MD Signed Date/Time: 06/21/23 10:30 am Transcribed By: MARYANN Transcribed Date/Time: 06/21/23 10:27 am * Exam Date Time Procedure Performing Provider Status 06/17/23 2:[address] Cervical Spine W/O Contrast Dea Cool i; Auth (Verified) Notes: (CT Cervical Spine W/O Contrast) Reason For Exam: Trauma RESULT: CT Cervical Spine W/O Contrast Examination: Noncontrast head CT and noncontrast CT of the cervical spine performed on 06/17/2023. History: Trauma. Arm tingling and numbness. Technique and findings: Noncontrast head CT: Contiguous 5 mm axial images were obtained from the skull base to the vertex without intravenous contrast. A dose modulated weight-based protocol was used. There are no prior similar studies currently available for direct comparison. The visualized sinuses are free from disease. The ventricular system and subarachnoid spaces are within normal limits. There is no intracranial hemorrhage, mass effect, or midline shift. No intra- or extra-axial fluid collections are identified. The osseous structures are unremarkable. Impression: There is no acute intracranial abnormality. Noncontrast CT of the cervical spine: Contiguous axial images were obtained from the skull base through the thoracic inlet without intravenous contrast. Sagittal and coronal reformatted images are provided. A dose modulated weight-based protocol was used. No fractures are demonstrated. There is no malalignment. There is no traumatic disc herniation or epidural hematoma. The lung apices are unremarkable. IMPRESSION: There is no acute intracranial abnormality. There is no acute osseous abnormality within the cervical spine. WSN: [id number] Ordering Physician: Alexandra Huntley Dictated By: Blank Lopez MD Dictated Date/Time: 06/17/23 2:38 pm Reviewed By: Blank Lopez MD Signed By: Blank Lopez MD Signed Date/Time: 06/17/23 2:38 pm Transcribed By: MARYANN Transcribed Date/Time: 06/17/23 2:33 pm * Exam Date Time Procedure Performing Provider Status 06/17/23 2:[address] Head/Brain W/O Contrast Dea Guadalupe; Malvin (Verified) Notes: (CT Head/Brain W/O Contrast) Reason For Exam: Brain mass or lesion;Other: RESULT: CT Head/Brain W/O Contrast Examination: Noncontrast head CT and noncontrast CT of the cervical spine performed on 06/17/2023. History: Trauma. Arm tingling and numbness. Technique and findings: Noncontrast head CT: Contiguous 5 mm axial images were obtained from the skull base to the vertex without intravenous contrast. A dose modulated weight-based protocol was used. There are no prior similar studies currently available for direct comparison. The visualized sinuses are free from disease. The ventricular system and subarachnoid spaces are within normal limits. There is no intracranial hemorrhage, mass effect, or midline shift. No intra- or extra-axial fluid collections are identified. The osseous structures are unremarkable. Impression: There is no acute intracranial abnormality. Noncontrast CT of the cervical spine: Contiguous axial images were obtained from the skull base through the thoracic inlet without intravenous contrast. Sagittal and coronal reformatted images are provided. A dose modulated weight-based protocol was used. No fractures are demonstrated. There is no malalignment. There is no traumatic disc herniation or epidural hematoma. The lung apices are unremarkable. IMPRESSION: There is no acute intracranial abnormality. There is no acute osseous abnormality within the cervical spine. WSN: [id number] Ordering Physician: Alexandra Huntley Dictated By: Blank Lopez MD Dictated Date/Time: 06/17/23 2:38 pm Reviewed By: Blank Lopez MD Signed By: Blank Lopez MD Signed Date/Time: 06/17/23 2:38 pm Transcribed By: MARYANN Transcribed Date/Time: 06/17/23 2:33 pm * Exam Date Time Procedure Performing Provider Status 06/17/23 2:25 PM Knee 1 or 2 Views Left More Crowe; Auth (Verified) Notes: (Knee 1 or 2 Views Left) Reason For Exam: Trauma RESULT: Knee 1 or 2 Views Left Knee 1 or 2 Views Left, 2 views Hx of Present Illness: Pt with RUE pain x1 month, saw PCP who sent to rheumotolgist, appt is 4 2, pain is worse today, difficulty lifting arm, reports she had some numbness tingling but has since gone away; Reason: Trauma; Clinical Question(s): Fracture COMPARISON: None. FINDINGS: No bone lesions or fractures. No arthritic changes. No osteochondral defects or intra-articular loose bodies. No evidence of joint effusion. IMPRESSION: Normal. WSN: [id number] Ordering Physician: Alexandra Huntley Dictated By: Tj Galvan MD Dictated Date/Time: 06/17/23 2:35 pm Reviewed By: Tj Galvan MD Signed By: Tj Galvan MD Signed Date/Time: 06/17/23 2:35 pm Transcribed By: MARYANN Transcribed Date/Time: 06/17/23 2:31 pm * Exam Date Time Procedure Performing Provider Status 06/17/23 2:25 PM Shoulder Min 2 Views Right Chapin Crowe; Auth (Verified) Notes: (Shoulder Min 2 Views Right) Reason For Exam: Trauma RESULT: Shoulder Min 2 Views Right Shoulder Min 2 Views Right, and views Hx of Present Illness: Pt with RUE pain x1 month, saw PCP who sent to electronic science teacher, appt is 4 2, pain is worse today, difficulty lifting arm, reports she had some numbness tingling but has since gone away; Reason: Trauma; Clinical Question(s): Fracture COMPARISON: None. FINDINGS: No fracture or dislocation. Mild glenohumeral joint space narrowing and marginal spurring. Mild degenerative changes of the AC joint. The portion of the clavicle included on the exam is normal. No calcification of the rotator cuff. IMPRESSION: Mild glenohumeral and AC joint degenerative change. WSN: [id number] Ordering Physician: Alexandra Huntley Dictated By: Tj Galvan MD Dictated Date/Time: 06/17/23 2:31 pm Reviewed By: Tj Galvan MD Signed By: Tj Galvan MD Signed Date/Time: 06/17/23 2:31 pm Transcribed By: MARYANN Transcribed Date/Time: 06/17/23 2:30 pm Vital Signs Most recent to oldest [Reference Range]: 1 2 3 Height 155 cm (06/21/23 10:57 AM) 155 cm (06/21/23 7:11 AM) 155 cm (06/21/23 3:28 AM) Weight 94.5 kg (06/17/23 8:27 PM) 91 kg (06/17/23 6:53 PM) 91 kg (06/17/23 9:48 AM) Oxygen Saturation [94-100 %] 100 % (06/21/23 10:57 AM) 100 % (06/21/23 7:11 AM) 99 % (06/21/23 3:28 AM) Pulse Rate [55-90 bpm] 66 bpm (06/21/23 10:57 AM) 50 bpm *L* (06/21/23 7:11 AM) 51 bpm *L* (06/21/23 3:28 AM) Body Mass Index [18.5-24.99 kg/m2] 37.88 kg/m2 *>HHI* (06/17/23 6:53 PM) 37.88 kg/m2 *>HHI* (06/17/23 9:38 AM) Blood Pressure [90-138/55-84 mm Hg] 137/87mm Hg (06/21/23 10:57 AM) 133/82mm Hg (06/21/23 8:38 AM) 133/82mm Hg (06/21/23 7:11 AM) Respiratory Rate [16-30 br/min] 18 br/min (06/21/23 10:57 AM) 18 br/min (06/21/23 9:44 AM) 19 br/min (06/21/23 7:11 AM) Temperature [96.8-100.4 DegF] 97.6 DegF (06/21/23 10:57 AM) 97.6 DegF (06/21/23 7:11 AM) 97.8 DegF (06/21/23 3:28 AM) Mode of Delivery (Oxygen) Room air (06/21/23 10:57 AM) Room air (06/21/23 7:11 AM) Room air (06/21/23 3:28 AM) Blood pressure sites Arm, left (06/21/23 10:57 AM) Arm, right (06/21/23 7:11 AM) Arm, right (06/21/23 3:28 AM) Temperature Route Oral (06/21/23 10:57 AM) Oral (06/21/23 7:11 AM) Oral (06/21/23 3:28 AM) Dry Weight 91 kg (06/17/23 6:53 PM) 91 kg (06/17/23 9:48 AM) 91 kg (06/17/23 9:38 AM) Weight Obtained Via Standing scale (06/17/23 8:27 PM) Patient/family stated (06/17/23 9:38 AM) Dry Weight Obtained Via Patient/family s tated (06/17/23 9:38 AM) Social History Social History Type Response Smoking Status Former smoker, quit more than 30 days ago; Other: Quit 2013; entered on: 07/05/18 Sex Admission evaluation note * Eb Bagley MD: PERFORM, MODIFY, MODIFY, MODIFY Event Display: Admission Note Authored Date: Patient: ??LIANET HOBBS ? Age:??58 Years?Sex:??Female?:??1965?? Chief Complaint/Reason for Consultation Worsening R shoulder pain History of Present Illness 58-year-old female past medical history of chronic headaches, migraine, possible myofascial syndrome, osteoarthritis, LEANNA on CPAP, CKD, vaginal prolapse/mixed incontinence, presented to the emergencydepartment with worsening right shoulder pain and right-sided headache. ?? Patient states that she has migraine for which she takes medications however she has been endorsinga right-sided neck pain and headache which although has been going on for several months acutely worsened ??3 days ago. ??Prior to this she would occasionally get her??usual migraine headaches??and??pain on the backside of her neck??which would travel up to the??vertex. She states this feels differe nt than her usual migraine, located over the right side over episcopal and radiates into her eye.?States when she went to see herself in the mirror her eye right eye was already??as if her vein has popped.?Along with this she is also endorsing some blurry vision in both eyes which is slowly progressed,??however mostly rises??when she is ambulating??or cooking.?In addition,??with this there is reported jaw pain with chewing worse than her usual temporomandibular joint syndrome (usually??she states at nighttime??she hears clicking joints??from her jaw) She has seen neurology they believe there may be some myofascial component to her headaches. ?? Patient has been endorsing right shoulder pain for about a month, however yesterday night it becameso severe that she was unable to move her arm or lifted.?? She took Tylenol but it did not provide much relief.?? Along with this she has also been endorsing left-sided knee pain which is worse with walking that is also being according over the last month.?? Reported appointment with rheumatology on 06/29. ?? On presentation patient was hypertensive to 158/109, pulse 72, saturation 99 on room air CBC unremarkable Electrolytes within normal limits, creatinine 1.6 at baseline ESR 144 and CRP of 0.9 ?? X-ray knee was unremarkable, shoulder x-ray suggestive of degenerative changes. CT head/brain/cervical spine does not show any vascular stenosis or large vessel occlusion. ?? With concerns of visual compromise, right-sided temporal headache, worsening jaw pain, and elevatedESR he did reach out to ophthalmology with concerns of changes so arthritis and had recommended high-dose steroids for 3 days. ?? Patient received 1000 g of prednisone in ED. Review of Systems A full review of systems was completed and is otherwise negative except as mentioned in history of present illness. Objective Measurements?? Height: 155 cm (06/17/23) Weight: 94.5 kg (06/17/23) Dry Weight: 91 kg (06/17/23) Body Mass Index:??37.88 kg/m2??Critical (06/17/23) ? Vital Signs?? Temperature: 98.7 DegF (06/17/23 19:35:00) Temperature Route: Oral (06/17/23 19:35:00) Pulse Rate: 75 bpm (06/17/23 19:35:00) Respiratory Rate: 19 br/min (06/17/23 19:35:00) Systolic Blood Pressure:??149 mm Hg??High (06/17/23 19:35:00) Diastolic Blood Pressure: 78 mm Hg (06/17/23 19:35:00) Blood pressure sites: Arm, left (06/17/23 19:35:00) Mean Arterial Pressure: 102 mm Hg (06/17/23 19:35:00) Pulse Pressure: 71 mm Hg (06/17/23 19:35:00) Oxygen Saturation: 97 % (06/17/23 19:35:00) Mode of Delivery (Oxygen): Room air (06/17/23 19:35:00) Early Warning Score: 0 (06/17/23 19:39:40) ? Physical Exam Constitutional: Alert, in no distress. Mental Status: Oriented to person, place and time. Head: Normocephalic. Eyes: Pupils are equal, round and reactive to light. Extraocular muscles intact. Neck: turns neck slowly due to pain Respiratory: Clear to auscultation. No wheezing, rales or rhonchi. Cardiovascular: S1 S2 regular. No murmurs, rubs or gallops. Gastrointestinal: Abdomen soft, non-tender, non-distended. Normal bowel sounds. Genitourinary: No costovertebral angle tenderness. Neurologic: Cranial nerves II-XII grossly intact. No focal neurological deficits. Moves all extremities spontaneously. Sensation intact bilaterally. Musculoskeletal No tenderness over temporal area or TMJ area, lower ext grade 1- 2 pitting edema Psychiatric: Normal mood and affect Assessment/Plan Diagnoses Blurry vision, bilateral ??(H53.8) Giant cell arteritis ??(M31.6) Headache ??(R51.9) Jaw pain ??(R68.84) Left knee pain ??(M25.562) Neck pain ??(M54.2) Shoulder pain, right ??(M25.511) Skin yeast infection ??(B37.2) ?? 58-year-old female past medical history of chronic headaches, migraine, possible myofascial syndrome, osteoarthritis, LEANNA on CPAP, CKD, vaginal prolapse/mixed incontinence, presented to the emergencydepartment with worsening right shoulder pain and right-sided headache, admitted for??for possible GCA. ? Possible Giant cell arteritis ??(M31.6) Headache ??(R51.9) Jaw pain ??(R68.84) Blurry vision, bilateral ??(H53.8) ?? Patient has been endorsing??intermittent??temporal??pain R>L??along with occasional blurriness Very sharp??right-sided temporal pain??endorsed 3 days ago??along with??redness??in the R eye Presents with ESR of 42??and CRP of??0.9 (although I would??expect??higher values in GCA?) ED reached out to ophthalmology??which recommended??to start??high-dose steroids Status post 1 g??IV prednisone today On examination patient currently does not have??temporal tenderness or??blurry vision Definitive diagnosis will be based on biopsy Would also like to rule out orthostatic hypotension??as she complains of blurry vision while ambulating ?? Plan 1 g prednisone for 2 more days Consulted surgery and they recommended to reach out to vascular surgery in the morning??for??biopsy Neurology consulted??as patient previously follows??and presents with new symptoms Ophthalmology consulted in ED -??currently not??clear whether ophthalmology is following or not -> verify in morning Patient may be discharged on??60 Mg chronic??steroid taper following biopsy ( for 52 weeks ) Orthostatic vital Outpatient follow-up with rheumatology ? Right shoulder pain Knee pain On examination patient has difficulty??raising the right arm??about above 20 degrees X-ray suggestive of??Mild glenohumeral and AC joint degenerative change.?? Knee examination w/ some crepitus w/ unremarkable Xray ?? Plan Diclofenac gel Tylenol as needed as needed Physical therapy??outpatient ? Chronic Medical Conditions: LEANNA/OHS/possible asthma : Continue home albuterol as needed, switch Symbicort to Breo Ellipta, CPAPat night and nap Patient Hypertension continue home amlodipine??10 Mg daily,: Losartan 50 Mg BID Vagina prolapse, mixed incontinence: Patient may bring the Gmetsa from home GERD: Not taking home PPI History of seizures??in remission/migraine: Switch rizatriptan to sumatriptan as needed as needed, continue home topiramate, amitriptyline Constipation: Home Linzess not on formulary continue with in patient bowel regimens CKD (cr today at baseline)- States has intermittent lower ext edema, currently has grade 1-2 pitting edema: Continue home furosemide 20 Mg, patient currently not taking Farxiga and says will follow-up outpatient w/ renal ?? Quality Measures: Code Status:??Full resuscitation Diet:??Regular DVT Prophylaxis:??Enoxaparin ?? Patient has been??seen and discussed with Dr. Calhoun ?? Dr. Eb Bagley Internal Medicine PGY1 Pager: [phone]?? Histories Allergies Allergies ?(Active and Proposed Allergies Only) meperidine? (Severity: Unknown severity, Onset: Unknown) diphenhydrAMINE? (Severity: Unknown severity, Onset: Unknown) morphine? (Severity: Unknown severity, Onset: Unknown) ?Comments: pt states bad reaction Dilaudid? (Severity: Unknown severity, Onset: Unknown) Demerol HCl? (Severity: Unknown severity, Onset: Unknown) Benadryl? (Severity: Unknown severity, Onset: Unknown) codeine? (Severity: Unknown severity, Onset: Unknown) ? Past Medical History/Problem List Active Problems??(9) Adult BMI 39.0-39.9 kg/sq m Anxiety and depression, [facility] Excessive daytime sleepiness Obstructive sleep apnea Osteoarthritis Postcoital bleeding Seizures Severe obesity (BMI 35.0-39.9) with comorbidity SUN (stress urinary incontinence, female) ? Past Surgical History Multiple hernia repairs Tubal ligation Sling operation for stress incontinence (eg, fascia or synthetic) Cryoablation of cervix Excision of endometrial polyp Foot Surgery Hernia Carpal tunnel Nose Breast surgery ? Social History Alcohol Details:??Frequency: 1-2 times per month. Employment/School Details:??Status: Disabled. Exercise Details:??Self assessment: Poor condition. Home/Environment Details:??Living situation: Home with assistance. 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 Nutrition/Health Details:??Diet: Regular. Sexual Details:??Sexually involved in last 6 months: Yes. ??Sexual orientation: Heterosexual. ??Gender identity: Female. Substance Abuse Details:??Use: Never. Tobacco Details:??Use: Former smoker, quit more than 30 days ago. ??Other: Quit 2013. ? Family History Mother: Diabetes mellitus type II; Heart attack; Hyperlipidemia; Hypertension Brother: Diabetes mellitus type II; End stage renal disease; Obesity Other (Aunt): Cancer of breast Sister: Hypertension ? Medications Home Medications Albuterol (Albuterol (Eqv-ProAir HFA) 90 mcg/inh inhalation aerosol)?2?puff(s)?Inhalation?Every 4 hours?as needed? NEEDED FOR WHEEZING amiTRIPTYLINE (amitriptyline 10 mg oral tablet)?10?Milligram?1?tablet?By Mouth?Daily at supper Amlodipine (amLODIPine 2.5 mg oral tablet)?2.5?Milligram?1?tablet?By Mouth?Daily Budesonide-Formoterol (Symbicort 160mcg/4.5mcg Inhaler)?2?puff(s)?Inhalation?2 times a day?for 30?Days dapagliflozin (Farxiga 10 mg oral tablet)?Take 10 mg by mouth 1 (one) time each day in the morning Durable Medical Equipment (Aerochamber)?See Instructions?use with MDI Durable Medical Equipment (BIPAP 13/8 with heated humidification)?See Instructions?use overnight and naps Durable Medical Equipment (Aerochamber)?See Instructions?use with MDI Durable Medical Equipment (CPAP ??Machine)?See Instructions?New script for CPAP and suppliesPatient in the past used J&L Auto CPAP 5cm to 20cm [id number] preferred mask interfaceall required headgear, tubing, filters, etc Dx LEANNA G47.33 Durable Medical Equipment (CPAP Equipment)?See Instructions?PAP supplies Refill mask and supplies ??A4604 Heated Tubing/Climate line or A7037 Tubing ??A7038 ??or A7039 ??Filters ?? A7036 Chin strap A7046 Humidifier Chamber ??A7035 Headgear ?? A7027, A7030, A7031, A7032, A7033, A7034 Nasal, Full or Pillow Mask and part... Furosemide (furosemide 20 mg oral tablet)?20?Milligram?1?tablet?Take 1 tablet (20 mgtotal) by mouth 1 (one) time each day Lansoprazole (lansoprazole 30 mg oral enteric coated capsule)?1?capsule?30?Milligram?By Mouth?2 times a day linaclotide (Linzess 145 mcg oral capsule)?1?capsule?145?Microgram?By Mouth?Daily Losartan (losartan 50 mg oral tablet)?50?Milligram?1?tablet?By Mouth?Daily Magnesium Oxide (magnesium oxide 400 mg oral tablet)?1?tab(s)?By Mouth?Daily Nystatin Topical (nystatin topical 931789 u/gm cream)?1?amber?Topically?2 times a day?for 14?Days Rizatriptan (rizatriptan 10 mg oral tablet)?1?tab(s)?By Mouth?Daily?as needed? NEEDED FOR MIGRAINE HEADACHE?MAY REPEAT DOSE ONCE IN 2 HOURS Topiramate (topiramate 50 mg oral tablet)?TAKE 2 TABLETS BY MOUTH IN THE MORNING and TAKE 3 TABLETS IN THE EVENING Trospium Chloride (trospium 60 mg oral capsule, extended release)?1?capsule?60?Milligram?By Mouth?Daily in AM vibegron (Gemtesa 75 mg oral tablet)?1?tab(s)?75?Milligram?By Mouth?Daily ? Results Recent Labs BLOOD COUNT & DIFF WBC 8.9 k/mm3 ()?? 06/17/2023 15:20 RBC 4.58 m/mm3 ()?? 06/17/2023 15:20 Hgb 13.4 Gm/dL ()?? 06/17/2023 15:20 Hct 41.6 % ()?? 06/17/2023 15:20 MCV 90.8 femtoliters ()?? 06/17/2023 15:20 MCH 29.3 pg ()?? 06/17/2023 15:20 MCHC 32.2 g/dL (Low)?? 06/17/2023 15:20 Platelet Count 225 k/mm3 ()?? 06/17/2023 15:20 RDW-SD 45.7 femtoliters ()?? 06/17/2023 15:20 MPV 10.2 femtoliters ()?? 06/17/2023 15:20 Nucleated RBC (Automated) 0.0 #/100 WBC'S ()?? 06/17/2023 15:20 Abs. NRBC 0.0 k/mm3 ()?? 06/17/2023 15:20 Abs. Neut 5.7 k/mm3 ()?? 06/17/2023 15:20 Abs. Lymph 2.4 k/mm3 ()?? 06/17/2023 15:20 Abs. Anson 0.5 k/mm3 ()?? 06/17/2023 15:20 Abs. Eo 0.3 k/mm3 ()?? 06/17/2023 15:20 Abs. Baso 0.0 k/mm3 ()?? 06/17/2023 15:20 Neut % 64.1 % ()?? 06/17/2023 15:20 Lymph % 26.3 % ()?? 06/17/2023 15:20 Anson % 5.8 % ()?? 06/17/2023 15:20 Eos % 2.8 % ()?? 06/17/2023 15:20 Baso % 0.4 % ()?? 06/17/2023 15:20 Imm Gran 0.6 % ()?? 06/17/2023 15:20 Abs. Imm Gran 0.1 k/mm3 ()?? 06/17/2023 15:20 ?? CHEM GENERAL Sodium 140 mmol/L ()?? 06/17/2023 15:20 Potassium 4.4 mmol/L ()?? 06/17/2023 19:43 Chloride 103 mmol/L ()?? 06/17/2023 15:20 Bicarbonate Level 25 mmol/L ()?? 06/17/2023 15:20 Anion Gap 12 ()?? 06/17/2023 15:20 Glucose Level 112 mg/dL (High)?? 06/17/2023 15:20 BUN 22 mg/dL (High)?? 06/17/2023 15:20 Creatinine-Blood 1.6 mg/dL (High)?? 06/17/2023 15:20 Estimated GFR Creatinine 37 ML/MIN/1.73 M2 ()?? 06/17/2023 15:20 Calcium 9.2 mg/dL ()?? 06/17/2023 15:20 Protein, Total 6.5 Gm/dL ()?? 06/17/2023 15:20 Albumin 4.0 Gm/dL ()?? 06/17/2023 15:20 AG Ratio 1.6 ()?? 06/17/2023 15:20 Alkaline Phosphatase 115 units/L (High)?? 06/17/2023 15:20 AST (SGOT) 13 units/L ()?? 06/17/2023 15:20 ALT (SGPT) 13 units/L ()?? 06/17/2023 15:20 Bilirubin, Total 0.2 mg/dL ()?? 06/17/2023 15:20 C-Reactive Protein 0.9 mg/dL (High)?? 06/17/2023 15:20 ?? HEME OTHER Sed Rate 42 mm/hr (High)?? 06/17/2023 15:20 ?? URINE OTHER Est Creatinine Clearance 29.31 mL/min ()?? 06/17/2023 16:48 ? Hospital Progress note * Petey Hernandez MD: PERFORM, SIGN, VERIFY Event Display: Progress Note Hospital Authored Date: Patient: LIANET HOBBS Age: 58 years Sex: Female : 1965 Associated Diagnoses: None Author: Petey Hernandez MD Overnight Events & Current Issues Seen and examned, events noted Review of Systems Review of Systems Constitutional: no chills, no fever. Physical Examination Vital Signs Vitals : VITALS 06/21/2023 7:11 EDT Height 155 cm Temperature 97.6 DegF Temperature Route Oral Pulse Rate 50 bpm L Respiratory Rate 19 br/min Systolic Blood Pressure 133 mm Hg Diastolic Blood Pressure 82 mm Hg Blood pressure sites Arm, right Mean Arterial Pressure 99 mm Hg Pulse Pressure 51 mm Hg Oxygen Saturation 100 % Mode of Delivery (Oxygen) Room air . Weight : Weight lb/oz 06/17/2023 20:27 EDT Weight lb/oz 208 lb 5 oz . BMI : Body Mass Index 06/17/2023 18:53 EDT Body Mass Index 37.88 kg/m2 >HHI 06/17/2023 9:38 EDT Body Mass Index 37.88 kg/m2 >HHI . General Appearance NAD. HEENT Moist mucous membranes. Respiratory Decreased breath sounds: at bases. Cardiac Rhythms: RRR. Abdomen/GI Abdomen: soft, non-tender. Tender. Extremities Edema. Results Review General results Today's results : Results 06/21/2023 6:56 EDT Sodium 144 mmol/L Potassium 4.7 mmol/L Chloride 109 mmol/L H Bicarbonate Level 25 mmol/L Anion Gap 10 Glucose Level 93 mg/dL BUN 46 mg/dL H Creatinine-Blood 2.1 mg/dL H Estimated GFR Creatinine 27 ML/MIN/1.73 M2 Calcium 9.1 mg/dL Most recent results Discrete results only : ALL SERVICE SECTIONS 06/20/2023 1:14 EDT Creatinine-Blood 2.1 mg/dL H 06/19/2023 1:52 EDT Creatinine-Blood 2.3 mg/dL H 06/18/2023 4:03 EDT Creatinine-Blood 1.8 mg/dL H 06/17/2023 15:20 EDT Creatinine-Blood 1.6 mg/dL H Impression and Plan COMPREHENSIVE PLAN Lianet Hobbs is a 58-year-old female with past medical history of chronic headaches, migraine, possible myofascial syndrome, osteoarthritis, LEANNA on CPAP, CKD, and vaginal prolapse/mixed incontinence who presented to the ED on 06/16 with worsening right shoulder pain and right-sided headache. Admitted for possible giant cell arteritis, received IV prednisone on admission. Neurology now with low suspicion for GCA. 1. BHAVIN: peak Scr 2.3 now grad decr; w/u thus far unrevealing but UA abnl d/t h/o FSGS AGN: given new Dx TCA occ can rarely be assoc with AGN but unlikely Obs needs to be r/o AIN hemodynamic Obs 2. 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 No GI/ complaints. Pt denies pain. Pt is independent with ambulation with a walker. See biophysical for further assessment. Call eason within reach. Findings Problem Related to Alteration in Genitourinary : Alteration in Genitourinary Function/new 06/21/2023 4:00 EDT Alteration in Status Related to Other: BHAVIN Goals & Outcomes, Genitourinary Pt will achieve normal/improved fluid balance, Pt will maintainadequate GI function appropriate for pt, Pt will maintain normal fluid balance, Pt will resume normal pattern of elimination Interventions, Assess/monitor/maintain Genitourinary status, Assist & encourage pt with meticulous deniz care, Encourage PO fluid intake as allowed by diet BH Goals/Interventions, Genitourinary Yes Genitourinary, Problem Start 06/21/2023 4:31 Reviewed Plan with, Genitourinary Patient Patient Progression, Genitourinary Plan Initiation Genitourinary, Problem Ongoing Yes . Discharge Information Pulmonary Rehab Discharge : Pulmonary Rehab Discharge Status 06/21/2023 3:36 EDT CPAP/BiPAP Mask Type Full CPAP/BiPAP Mask Size Medium 06/20/2023 23:14 EDT CPAP/BiPAP Mask Type Full CPAP/BiPAP Mask Size Medium 06/20/2023 2:06 EDT CPAP/BiPAP Mask Type Full CPAP/BiPAP Mask Size Medium 06/20/2023 0:10 EDT CPAP/BiPAP Mask Type Full CPAP/BiPAP Mask Size Medium 06/19/2023 0:09 EDT CPAP/BiPAP Mask Type Full CPAP/BiPAP Mask Size Medium 06/18/2023 3:31 EDT CPAP/BiPAP Mask Type Full CPAP/BiPAP Mask Size Medium 06/18/2023 0:40 EDT CPAP/BiPAP Mask Type Full CPAP/BiPAP Mask Size Medium * Petey Hernandez MD: PERFORM, SIGN, VERIFY Event Display: Progress Note Hospital Authored Date: Patient: LIANET HOBBS Age: 58 years Sex: Female : 1965 Associated Diagnoses: None Author: Petey Hernandez MD Overnight Events & Current Issues Seen and examned, events noted Review of Systems Review of Systems Constitutional: no chills, no fever. Physical Examination Vital Signs Vitals : VITALS 06/20/2023 10:39 EDT Early Warning Score 2.00 06/20/2023 10:39 EDT Height 155 cm Temperature 97.9 DegF Temperature Route Oral Pulse Rate 70 bpm Respiratory Rate 18 br/min Systolic Blood Pressure 130 mm Hg Diastolic Blood Pressure 70 mm Hg Blood pressure sites Arm, left Mean Arterial Pressure 90 mm Hg Pulse Pressure 60 mm Hg Oxygen Saturation 98 % Mode of Delivery (Oxygen) Room air . Weight : Weight lb/oz 06/17/2023 20:27 EDT Weight lb/oz 208 lb 5 oz . BMI : Body Mass Index 06/17/2023 18:53 EDT Body Mass Index 37.88 kg/m2 >HHI 06/17/2023 9:38 EDT Body Mass Index 37.88 kg/m2 >HHI . General Appearance NAD. HEENT Moist mucous membranes. Respiratory Decreased breath sounds: at bases. Cardiac Rhythms: RRR. Abdomen/GI Abdomen: soft, non-tender. Tender. Extremities Edema. Results Review General results Today's results : Results 06/20/2023 1:14 EDT WBC 12.3 k/mm3 H RBC 4.12 m/mm3 L Hgb 12.2 Gm/dL Hct 37.2 % MCV 90.3 femtoliters MCH 29.6 pg MCHC 32.8 g/dL L Platelet Count 238 k/mm3 RDW-SD 45.9 femtoliters MPV 10.9 femtoliters Nucleated RBC (Automated) 0.0 #/100 WBC'S Abs. NRBC 0.0 k/mm3 Abs. Neut 10.0 k/mm3 H Abs. Lymph 1.7 k/mm3 Abs. Anson 0.5 k/mm3 Abs. Eo 0.0 k/mm3 Abs. Baso 0.0 k/mm3 Neut % 81.4 % H Lymph % 13.8 % L Anson % 4.0 % L Eos % 0.1 % Baso % 0.0 % Imm Gran 0.7 % Abs. Imm Gran 0.1 k/mm3 Sodium 139 mmol/L Potassium 4.4 mmol/L Chloride 105 mmol/L Bicarbonate Level 20 mmol/L L Anion Gap 14 Glucose Level 277 mg/dL H BUN 52 mg/dL H Creatinine-Blood 2.1 mg/dL H Estimated GFR Creatinine 27 ML/MIN/1.73 M2 Calcium 8.9 mg/dL Magnesium 2.1 mg/dL Most recent results Discrete results only : ALL SERVICE SECTIONS 06/20/2023 1:14 EDT Creatinine-Blood 2.1 mg/dL H 06/19/2023 1:52 EDT Creatinine-Blood 2.3 mg/dL H 06/18/2023 4:03 EDT Creatinine-Blood 1.8 mg/dL H 06/17/2023 15:20 EDT Creatinine-Blood 1.6 mg/dL H Impression and Plan COMPREHENSIVE PLAN Lianet Hobbs is a 58-year-old female with past medical history of chronic headaches, migraine, possible myofascial syndrome, osteoarthritis, LEANNA on CPAP, CKD, and vaginal prolapse/mixed incontinence who presented to the ED on 06/16 with worsening right shoulder pain and right-sided headache. Admitted for possible giant cell arteritis, received IV prednisone on admission. Neurology now with low suspicion for GCA. 1. BHAVIN: peak Scr 2.3 now grad decr; w/u thus far unrevealing but UA abnl d/t h/o FSGS AGN: given new Dx TCA occ can rarely be assoc with AGN but unlikely Obs needs to be r/o AIN hemodynamic Obs 2. 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) REC: if SCr does not cont to improve then futher w/u with sero and renal U/S Consult note * Ismael Angulo MD: SIGN Ismael Angulo MD: SIGN, MODIFY Ismael Angulo MD: MODIFY, SIGN, VERIFY, MODIFY, SIGN, PERFORM David Houser: PERFORM, MODIFY David Houser: MODIFY Event Display: Consultation Note Authored Date: [id number] Patient: LIANET HOBBS Age: 58 years Sex: Female : 1965 Associated Diagnoses: None Author: David Houser [facility] Inpatient Nephrology Consultation Note Requesting Provider: Crow Keane MD Reason for Consult: BHAVIN on CKD History of Present Illness Lianet Hobbs is a 58-year-old female with past medical history of chronic headaches, migraine, possible myofascial syndrome, osteoarthritis, LEANNA on CPAP, CKD, and vaginal prolapse/mixed incontinence who presented to the ED on 06/16 with worsening right shoulder pain and right-sided headache. Patient has been endorsing intermittent temporal pain R>L along with occasional blurriness. Presented with ESR of 42 and CRP of 0.9. ED reached out to ophthalmology with concern for giant cell arteritis who recommended to start high-dose steroids. Received IV prednisone on admission. Hx and clinical presentation not entirely consistent with temporal arteritis. Case was discussed with Dr. Banks from neurology who recommended holding steroids and monitor symptoms. He recommended CTA head, but given current BHAVIN, CT was held and nephrology was consulted. Creatinine was at baseline of 1.6-1.8mg/dL, but is up to 2.3mg/dL today. On my assessment, patient is resting comfortably in bed. She endorses a mild headache. Endorses mediocre appetite and denies nausea, vomiting, or diarrhea. She does have chronic peripheral edema which she states is relatively unchanged. She does feel that she is urinating less than usual and endorses occasional feelings of incomplete bladder emptying. Review of Systems Constitutional: No weight loss, fever, chills, weakness or fatigue. HEENT: No visual loss, blurred vision, double vision or yellow sclera. No hearing loss, sneezing, congestion, runny nose or sore throat. Skin: No rash or itching. Cardiovascular: No chest pain, chest pressure or chest discomfort. No palpitations or pedal edema. Respiratory: No shortness of breath, cough or sputum production. Gastrointestinal: Negative for nausea, vomiting & diarrhea. No abdominal pain or blood in stool. Genitourinary: No burning micturition. No urinary frequency or incontinence. Neurologic: No headache, dizziness, syncope, unilateral weakness, ataxia Musculoskeletal: No muscle pain, back pain, joint pain or stiffness. Hematologic: No bleeding or bruising. Lymphatics: No enlarged lymph nodes. Psychiatric: No depression or anxiety. Endocrine: No reports of sweating. No cold or heat intolerance. No polyuria or polydipsia. Health Status Allergies: Allergies (Active and Proposed Allergies Only) meperidine (Severity: Unknown severity, Onset: Unknown) diphenhydrAMINE (Severity: Unknown severity, Onset: Unknown) morphine (Severity: Unknown severity, Onset: Unknown) Comments: pt states bad reaction Dilaudid (Severity: Unknown severity, Onset: Unknown) Demerol HCl (Severity: Unknown severity, Onset: Unknown) Benadryl (Severity: Unknown severity, Onset: Unknown) codeine (Severity: Unknown severity, Onset: Unknown) Past Medical History: Adult BMI 39.0-39.9 kg/sq m Anxiety and depression, [facility] Asthma Excessive daytime sleepiness Hypertension Migraines Obstructive sleep apnea Osteoarthritis Postcoital bleeding SUN (stress urinary incontinence, female) Seizures Severe obesity (BMI 35.0-39.9) with comorbidity Medications: Albuterol (Albuterol (Eqv-ProAir HFA) 90 mcg/inh inhalation aerosol) 2 puff(s) Inhalation Every 4 hours as needed NEEDED FOR WHEEZING amiTRIPTYLINE (amitriptyline 10 mg oral tablet) 10 Milligram 1 tablet By Mouth Daily at supper Amlodipine (amLODIPine 10 mg oral tablet) Take 1 tablet (10 mg total) by mouth 1 (one) time each day Budesonide-Formoterol (Symbicort 160mcg/4.5mcg Inhaler) 2 puff(s) Inhalation 2 times a day for 30 Days dapagliflozin (Farxiga 10 mg oral tablet) Take 10 mg by mouth 1 (one) time each day in the morning Durable Medical Equipment (Aerochamber) See Instructions use with MDI Durable Medical Equipment (BIPAP 13/8 with heated humidification) See Instructions use overnight and naps Durable Medical Equipment (Aerochamber) See Instructions use with MDI Durable Medical Equipment (CPAP Machine) See Instructions New script for CPAP and suppliesPatient in the past used [employer] Auto CPAP 5cm to 20cm [id number] preferred mask interfaceall required headgear, tubing, filters, etc Dx LEANNA G47.33 Durable Medical Equipment (CPAP Equipment) See Instructions PAP supplies Refill mask and supplies A4604 Heated Tubing/Climate line or A7037 Tubing A7038 or A7039 Filters A7036 Chin strap A7046 Humidifier Chamber A7035 Headgear A7027, A7030, A7031, A7032, A7033, A7034 Nasal, Full or Pillow Mask and part... Furosemide (furosemide 20 mg oral tablet) 20 Milligram 1 tablet Take 1 tablet (20 mg total) by mouth 1 (one) time each day Lansoprazole (lansoprazole 30 mg oral enteric coated capsule) 1 capsule 30 Milligram By Mouth 2 times a day linaclotide (Linzess 145 mcg oral capsule) 1 capsule 145 Microgram By Mouth Daily Losartan (losartan 50 mg oral tablet) TAKE 1 TABLET BY MOUTH two (2) times a day Magnesium Oxide (magnesium oxide 400 mg oral tablet) 1 tab(s) By Mouth Daily Nystatin Topical (nystatin topical 408631 u/gm cream) 1 amber Topically 2 times a day for 14 Days Rizatriptan (rizatriptan 10 mg oral tablet) 1 tab(s) By Mouth Daily as needed NEEDED FOR MIGRAINE HEADACHE MAY REPEAT DOSE ONCE IN 2 HOURS Topiramate (topiramate 50 mg oral tablet) TAKE 2 TABLETS BY MOUTH IN THE MORNING and TAKE 3 TABLETSIN THE EVENING Trospium Chloride (trospium 60 mg oral capsule, extended release) 1 capsule 60 Milligram By Mouth Daily in AM vibegron (Gemtesa 75 mg oral tablet) 1 tab(s) 75 Milligram By Mouth Daily Social History: Alcohol Details: Frequency: 1-2 times per month. Employment/School Details: Status: Disabled. Exercise Details: Self assessment: Poor condition. Home/Environment Details: Living situation: Home with assistance. Marital Status of Patient if Patient Independent Adult: Unmarried. 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 Nutrition/Health Details: Diet: Regular. Sexual Details: Sexually involved in last 6 months: Yes. Sexual orientation: Heterosexual. Gender identity: Female. Substance Abuse Details: Use: Never. Tobacco Details: Use: Former smoker, quit more than 30 days ago. Other: Quit 2013. Family History: Mother: Diabetes mellitus type II; Heart attack; Hyperlipidemia; Hypertension Brother: Diabetes mellitus type II; End stage renal disease; Obesity Other (Aunt): Cancer of breast Sister: Hypertension Physical Examination Temperature 98.3 (10:24) Systolic Blood Pressure 156 (10:24) Diastolic Blood Pressure 93 (10:24) Pulse 71 (10:24) SpO2 100 (10:24) Respiratory Rate 18 (10:24) General: No acute distress HEENT: Mucous membranes moist CV: Regular rate and rhythm Respiratory: CTAB Abdominal: Soft Extremities: No peripheral edema Neuro: AAO x3 Skin: No rashes Results Review General results Today's results 06/19/2023 1:52 EDT WBC 12.1 k/mm3 H RBC 4.52 m/mm3 Hgb 13.3 Gm/dL Hct 41.0 % MCV 90.7 femtoliters MCH 29.4 pg MCHC 32.4 g/dL L Platelet Count 241 k/mm3 RDW-SD 45.1 femtoliters MPV 10.8 femtoliters Nucleated RBC (Automated) 0.0 #/100 WBC'S Abs. NRBC 0.0 k/mm3 Sodium 138 mmol/L Potassium 4.9 mmol/L Chloride 101 mmol/L Bicarbonate Level 22 mmol/L Anion Gap 15 BUN 44 mg/dL H Creatinine-Blood 2.3 mg/dL H Estimated GFR Creatinine 24 ML/MIN/1.73 M2 Magnesium 2.3 mg/dL Impression and Plan Lianet Hobbs is a 58-year-old female with past medical history of chronic headaches, migraine, possible myofascial syndrome, osteoarthritis, LEANNA on CPAP, CKD, and vaginal prolapse/mixed incontinence who presented to the ED on 06/16 with worsening right shoulder pain and right-sided headache. Admitted for possible giant cell arteritis, received IV prednisone on admission. Neurology now with low suspicion for GCA. 1. BHAVIN Creatinine was at baseline of 1.6-1.8mg/dL, but is up to 2.3mg/dL today CKD due to biopsy proven FSGS in 2001- residual proteinuria last measured 3.2gm about a year ago BHAVIN most likely pre-renal in the setting of poor PO intake. Patient does have peripheral edema but this is chronic and she is saturating at 100% on room air. Post-renal obstruction also being considered as patient endorses urinating somewhat less frequently, though bladder scan was within normal limits. An acute GN or AIN is less likely, but will check U/A. Plan - Agree with 0.9% saline at 75mL/hr as ordered - Continue holding Lasix and losartan for now - Recommend MRA if needed over CTA - If CTA is needed, recommend 1 liter IVF before and after - Monitor I/O's - Bladder scan every shift (Thorne for > 350mL) - U/A and urine lytes ordered - Daily renal panel Thank you for the courtesy of this consult, [facility] will continue monitoring the patient along with you. Please do not hesitate to call us with any further questions. David Cool PA-C [facility] Available by [facility] Dr. Angulo * Adele MATIAS, Ismael: PERFORM Event Display: Consultation Note Authored Date: Chart reviewed . Patient evaluated ??I have discussed the case , its management with the??PA . Agree with the findings and plan as documented in the PA???s note, continues to have protienuria, likely secondary fsgs from obesity/ low nephron endownment with glomerular htn in functional nephrons. normal albumin- no signs of nephrotic syndrome, UA is bland plan to resume arb once bhavin resolved, candidate for nephroprotection with sglt2i * Princess Perez: MODIFY, MODIFY Jocelyn MATIAS, Michael Saldivar: PERFORM, MODIFY Jocelyn MATIAS, Michael Saldivar: MODIFY Event Display: Consultation Note Authored Date: Patient: ??BOBBY, LIANET ? Age:??58 Years?Sex:??Female?:??1965?? Chief Complaint/Reason for Consult Right arm pain and weakness History of Present Illness 58 yo F PMH??of chronic headaches, migraine, possible myofascial syndrome, osteoarthritis, LEANNA on CPAP, CKD,??presented to the emergency department with worsening right shoulder pain, right-sided headache and blurred vision. ?? Patient reports that over the past several months, she has had increasing right shoulder pain and headaches. A couple days ago, the right arm pain and weakness became very severe and??the headache worsened.??She describes it as the pain starting in her arm, rising up her neck to her face, around her temples, on both sides although worse on right side.??She also??noticed her vision was blurry, which has happened before over the past months. She denies any complete visual field loss. She??also reports myalgias, joint pain and has upcoming appointment with rheumatology in June.??She reported increasing jaw pain, particularly when she was eating. She reports that it feels a little better now that she hasn't eaten. She reports that yesterday when she pressed on her temples, she felt pain, especially upon release of her temples.? Right now, the patient reports that she feels much better than yesterday. However, she reports thatshe feels dizzy. She best describes the dizziness as if she were to stand, she would feel unsteady. She believes that this may be from the steroids. She reports that the left side of her face feels tingly especially around her episcopal and eye and her left eye feels like it is twitching. She endorses having episodes like this in the past. ?? Patient reports that she has had migraines for a long time. She follows with Dr. Clements outpatient. She reports??that this headache did not feel like her migraines. She reports that she had to get dentures remade concerning for potential TMJ history.?She reports that she has been taking topiramateand rizatriptan for migraine management. She reports that Dr. Clements started her on a different medication that is a small red pill that made her feel dizzy so she stopped taking??it??(amitriptyline?).She reports remote history of seizures, but it has been years since she had one. ?? On presentation,??CBC unremarkable, electrolytes within normal limits, creatinine 1.6 at baseline,??ESR 42. X-ray knee was unremarkable, shoulder x-ray suggestive of degenerative changes. CT head/brain/cervical spine does not show any vascular stenosis or large vessel occlusion. Given concern for GCA,??ophthalmology??recommended high-dose steroids for 3 days. Patient received 1000 g of prednisone in ED. Review of Systems As above. Physical Exam Vitals & Measurements T:??98.0?F?? HR:??75??(Peripheral)?? RR:??20?? BP:??146/88?? SpO2:??97%?? HT:??155??cm?? WT:??94.5??kg?? BMI:??37.88?? Constitutional: Alert, in no distress, sitting up in bed. Head: Normocephalic. Ear, Nose and Throat: Oropharynx clear, mucous membranes moist.?? Neurologic:??Alert and oriented to person, place, time, and situation CN III, IV, : Extraocular muscles intact. No nystagmus present. CN V: ??Facial sensation intact to light touch. CN VII: ??Face is symmetric with normal eye closure and smile. CN IX, X: ??Palate elevates symmetrically. Phonation is normal. CN XI:??Shoulder shrug intact, somewhat limited by pain CN XII: ??Tongue is midline with normal movements and no atrophy. Motor: ??Muscle bulk and tone are normal. Strength is full bilaterally in lower extremity.??Strength exam in upper extremities limited by pain. Sensory: Detects light touch bilaterally, no differences in sensation between right and left upper extremities. Bilateral temporal region nontender to palpation. Coordination: There are no abnormal or extraneous movements. Finger to nose intact. Rapid alternating movements intact. MSK: Tender to palpation of bilateral??trapezius muscles, particularly on right. Psychiatric: Normal mood and affect Assessment/Plan Assessment:??Lianet is 58 yo F PMH of chronic migraines, LEANNA, possible myofascial syndrome presenting with increasing shoulder pain over past 3 days radiating to neck and right-sided headaches, reportedly tender to palpation with visual blurring. Found to have elevated ESR to 42. CT Head/Brain/Cervical Spine unremarkable. Patient started on 1000g prednisone given concern for GCA. Now reporting improvement of her headache but increased dizziness, tingling and twitching on left side of her face. On exam, no focal neurologic deficits, nontender to palpation of temples, trapezius tender to palpation bilaterally.??Presentation most concerning for migraine with significant myofascial pain and TMJ pain??however, GCA cannot be completely ruled out. ?? Headache (R51.9):?? - No temporal artery biopsy at this time - Hold steroid, continue to monitor for return of symptoms tomorrow - CTA Head - Can hold amitriptyline ? PT seen and examined and discussed with Princess Perez MS 3.?? Agree with above. ?? Referred for ? of temporal arteritis.?? Pt however comes here with main complaint of right shoulderpain that radiates up her neck to the top of her head and temples.?? ESR is elevated but normal for age. She has some jaw pain with chewing and some blurry vision but blurry vision seems to be longstanding though when asked about it she later says it is more recent.?? She also states that when she was in [place] years ago she had pain with palpation of her temples but then she denied that later. She had been seeing Dr. Clements for myofascial CARVER.?? She had been given 1 dose of 1g IV solumedrol with improvement in CARVER (but that is also nonspecific) and after that had c.o of dizziness and left facial numbness and later says he has facial numbness frequently as well as blurry vision. ?? She also mentions that she has a hx of epilepsy but is not on any antiepileptics suggesting possibility that was nonepileptic sz. ?? Exam notable just for antalgic gait because of her left knee and also limited ROM of her right shoulder. ?? No palpable enlarged vessels in temples. ?? Difficult case.?? Pt has some features that could be c/w temporal arteritis but her sx can also be explained by her pre-existing CARVER d/o. Features that may support TA includes temporal tenderness, jawpain with use, some blurriness of vision , generalized myalgias, and elevated (though minimally) ESR.?? Features that do not suggest it is that she came here with the chief complaint of right shoulder pain?? and that any of her sx seems to have been long standing (though she would deny that when I tried to clarify). There is also a suspicion that she may have had nonepileptic sz suggesting that she may be prone to somatisizing. ?? - Stop solumedrol - Re assess CARVER and associated sx if it comes back - Hold off on bx for now as it is invasive but would reconsider if hx is more compelling for TA - CTA to see if there may be superior temporal artery dz which may increase suspicion for TA. - Although she was rx'd amitriptyline by Dr. Clements, she had not been taking is as she said if made her feel ill so stop that. ?? Problem List/Past Medical History Ongoing Adult BMI 39.0-39.9 kg/sq m Anxiety and depression, [facility] Excessive daytime sleepiness Obstructive sleep apnea Osteoarthritis Postcoital bleeding Seizures Severe obesity (BMI 35.0-39.9) with comorbidity SUN (stress urinary incontinence, female) Procedure/Surgical History Multiple hernia repairs Tubal ligation Sling operation for stress incontinence (eg, fascia or synthetic) Cryoablation of cervix Excision of endometrial polyp Breast surgery Nose Foot Surgery Hernia Carpal tunnel Home Medications Albuterol: 2 puffs, Inhalation, Every 4 hours, PRN ( NEEDED FOR WHEEZING) amiTRIPTYLINE: 10 mg = 1 tablet, By Mouth, Daily at supper Amlodipine: Take 1 tablet (10 mg total) by mouth 1 (one) time each day Budesonide-Formoterol: 2 puffs, Inhalation, 2 times a day dapagliflozin: Take 10 mg by mouth 1 (one) time each day in the morning Durable Medical Equipment: See Instructions, use with MDI Durable Medical Equipment (BIPAP 13/8 with heated humidification): See Instructions, use overnight and naps Durable Medical Equipment: See Instructions, use with MDI Durable Medical Equipment: See Instructions, New script for CPAP and suppliesPatient in the past used J&L Auto CPAP 5cm to 20cm [id number] preferred mask interfaceall required headgear, tubing, filters, etc Dx LEANNA G47.33 Durable Medical Equipment: See Instructions, PAP supplies Refill mask and supplies ??A4604 Heated Tubing/Climate line or A7037 Tubing ??A7038 ??or A7039 ??Filters ?? A7036 Chin strap A7046 HumidifierChamber ??A7035 Headgear ?? A7027, A7030, A7031, A7032, A7033, A7034 Nasal, Full or Pillow Mask andpart... Furosemide: 20 mg = 1 tablet, Take 1 tablet (20 mg total) by mouth 1 (one) time each day Lansoprazole: 30 mg = 1 capsule, By Mouth, 2 times a day linaclotide: 145 mcg = 1 capsule, By Mouth, Daily Losartan: TAKE 1 TABLET BY MOUTH two (2) times a day Magnesium Oxide: 1 tablet, By Mouth, Daily Nystatin Topical: 1 application, Topically, 2 times a day Rizatriptan: 1 tablet, By Mouth, Daily, PRN ( NEEDED FOR MIGRAINE HEADACHE), MAY REPEAT DOSE ONCEIN 2 HOURS Topiramate: TAKE 2 TABLETS BY MOUTH IN THE MORNING and TAKE 3 TABLETS IN THE EVENING Trospium Chloride: 60 mg = 1 capsule, By Mouth, Daily in AM vibegron: 75 mg = 1 tablet, By Mouth, Daily Allergies Benadryl Demerol HCl Dilaudid codeine diphenhydrAMINE meperidine morphine Social History Alcohol Frequency: 1-2 times per month. Employment/School Status: Disabled. Exercise Self assessment: Poor condition. Home/Environment Living situation: Home with assistance. Marital Status of Patient if Patient Independent Adult: Unmarried. 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 Nutrition/Health Diet: Regular. Sexual Sexually involved in last 6 months: Yes. Sexual orientation: Heterosexual. Gender identity: Female. Substance Abuse Use: Never. Tobacco Use: Former smoker, quit more than 30 days ago. Other: Quit 2013. Family History Mother: Diabetes mellitus type II; Heart attack; Hyperlipidemia; Hypertension Brother: Diabetes mellitus type II; End stage renal disease; Obesity Other (Aunt): Cancer of breast Sister: Hypertension Note * Amy Vargas RN: PERFORM Event Display: Discharge/Transfer Note Hospital Authored Date: [id number] Nursing Discharge Note Entered On: 06/21/2023 13:00 EDT Performed On: 06/21/2023 13:00 EDT by Amy Vargas RN Nursing Discharge Note 2 Discharge Time : 06/21/2023 13:00 EDT Discharge Level of Care at Discharge : Home/Retirement/Foster Care Patient Left Unit Via : Wheelchair Patient Accompanied Off Unit with : Responsible adult DC Instructions Provided & Signed by Pt : Yes Patient Understands D/C Instructions : Yes Patient Instructions Discharge Signed : Yes Did Pt have Specialty Bed or Wound Vac : No Amy Vargas RN - 06/21/2023 13:00 EDT * Diya MATIAS, Crow: PERFORM Event Display: Discharge/Transfer Note Hospital Authored Date: [id number] Patient: ??HOBBS, LIANET ? Age:??58 Years?Sex:??Female?:??1965?? Patient Information Discharge Location: [facility] Primary Care Physician: Daryn Duarte MD Admit Date/Time: 06/17/23 18:40 Discharge Disposition Discharge Disposition: Home: No Services Discharge Diagnosis Blurry vision, bilateral (H53.8) Giant cell arteritis (M31.6) Headache (R51.9) Jaw pain (R68.84) Left knee pain (M25.562) Neck pain (M54.2) Shoulder pain, right (M25.511) Skin yeast infection (B37.2) ?? _ Discharge Medications Albuterol (Albuterol (Eqv-ProAir HFA) 90 mcg/inh inhalation aerosol)?2?puff(s)?Inhalation?Every 4 hours?as needed? NEEDED FOR WHEEZING amiTRIPTYLINE (amitriptyline 10 mg oral tablet)?10?Milligram?1?tablet?By Mouth?Daily at supper Amlodipine (amLODIPine 10 mg oral tablet)?Take 1 tablet (10 mg total) by mouth 1 (one) time eachday Budesonide-Formoterol (Symbicort 160mcg/4.5mcg Inhaler)?2?puff(s)?Inhalation?2 times a day?for 30?Days dapagliflozin (Farxiga 10 mg oral tablet)?Take 10 mg by mouth 1 (one) time each day in the morning Diclofenac Topical (diclofenac 1% topical gel)?2?gram?Topically?4 times a day Durable Medical Equipment (Aerochamber)?See Instructions?use with MDI Durable Medical Equipment (BIPAP 09/11 with heated humidification)?See Instructions?use overnight and naps Durable Medical Equipment (Aerochamber)?See Instructions?use with MDI Durable Medical Equipment (CPAP ??Machine)?See Instructions?New script for CPAP and suppliesPatient in the past used J&L Auto CPAP 5cm to 20cm [id number] preferred mask interfaceall required headgear, tubing, filters, etc Dx LEANNA G47.33 Durable Medical Equipment (CPAP Equipment)?See Instructions?PAP supplies Refill mask and supplies ??A4604 Heated Tubing/Climate line or A7037 Tubing ??A7038 ??or A7039 ??Filters ?? A7036 Chin strap A7046 Humidifier Chamber ??A7035 Headgear ?? A7027, A7030, A7031, A7032, A7033, A7034 Nasal, Full or Pillow Mask and part... Lansoprazole (lansoprazole 30 mg oral enteric coated capsule)?1?capsule?30?Milligram?By Mouth?2 times a day linaclotide (Linzess 145 mcg oral capsule)?1?capsule?145?Microgram?By Mouth?Daily Magnesium Oxide (magnesium oxide 400 mg oral tablet)?1?tab(s)?By Mouth?Daily Nystatin Topical (nystatin topical 221833 u/gm cream)?1?amber?Topically?2 times a day?for 14?Days Rizatriptan (rizatriptan 10 mg oral tablet)?1?tab(s)?By Mouth?Daily?as needed? NEEDED FOR MIGRAINE HEADACHE?MAY REPEAT DOSE ONCE IN 2 HOURS Topiramate (topiramate 50 mg oral tablet)?TAKE 2 TABLETS BY MOUTH IN THE MORNING and TAKE 3 TABLETS IN THE EVENING Trospium Chloride (trospium 60 mg oral capsule, extended release)?1?capsule?60?Milligram?By Mouth?Daily in AM vibegron (Gemtesa 75 mg oral tablet)?1?tab(s)?75?Milligram?By Mouth?Daily ? Quality Measures Tobacco Use Treatment:? Medications Started Diclofenac gel Medications Discontinued Losartan Furosemide Allergies Allergies ?(Active and Proposed Allergies Only) meperidine? (Severity: Unknown severity, Onset: Unknown) diphenhydrAMINE? (Severity: Unknown severity, Onset: Unknown) morphine? (Severity: Unknown severity, Onset: Unknown) ?Comments: pt states bad reaction Dilaudid? (Severity: Unknown severity, Onset: Unknown) Demerol HCl? (Severity: Unknown severity, Onset: Unknown) Benadryl? (Severity: Unknown severity, Onset: Unknown) codeine? (Severity: Unknown severity, Onset: Unknown) ? PCP Follow-Up/Heads-Up Please follow up on renal function (Cr stabilized at 2.1 on discharge) and have pt follow up with nephrology. Renal US normal; holding lasix and losartan on dc; will need close monitoring of BP and possibly coming off amlodipine to help with LE edema Future Appointments Thursday. 2023 2:20 PM EDT ?? With: Kika MATIAS, Angelito Cuenca Where: [facility] [address] [place] [phone] Status: Pending Objective Assessment and Plan Lianet Hobbs is a 58-year-old female past medical history of chronic headaches, migraine, possible myofascial syndrome, osteoarthritis, LEANNA on CPAP, CKD, vaginal prolapse/mixed incontinence, presented to the emergency department with worsening right shoulder pain and right-sided headache, admitted for??for possible GCA. ? Possible Giant cell arteritis ??(M31.6) Headache ??(R51.9) Jaw pain ??(R68.84) Blurry vision, bilateral ??(H53.8) Patient has been endorsing??intermittent??temporal??pain R>L??along with occasional blurriness Very sharp??right-sided temporal pain??endorsed 3 days ago??along with??redness??in the R eye Presents with ESR of 42??and CRP of??0.9 (although I would??expect??higher values in GCA?) ED reached out to ophthalmology??which recommended??to start??high-dose steroids Received IV prednisone on admission On examination patient currently does not have??temporal tenderness or??blurry vision ESR 42; ESR usually >50 in temp arteritis Hx and clinical presentation not entirely consistent with temporal arteritis ?? Plan Discussed with Dr. Banks from neurology, hold steroids and monitor symptoms. He initially recommendedCT head but this was later discontinued as symptoms felt to be not related to TA by neurologist. Neuro signed off Monitor off steroids for development of new symptoms ? Chronic kidney disease Baseline cr 1.5-1.6, cr bumped to 2.3 from 1.8 Cr improved to 2.1 and stabilized at this level after IVF This is likely new baseline with CKD Discussed with Dr. Hernandez from renal, he agrees with holding lasix and losartan on dc and having close follow up with renal and PCP ? Right shoulder pain Knee pain On examination patient has difficulty??raising the right arm??about above 20 degrees X-ray suggestive of??Mild glenohumeral and AC joint degenerative change.?? Knee examination w/ some crepitus w/ unremarkable Xray ?? Plan Diclofenac gel Tylenol as needed as needed Physical therapy??outpatient ? Chronic Medical Conditions: LEANNA/OHS/possible asthma : Continue home albuterol as needed, switch Symbicort to Breo Ellipta, CPAPat night and nap Patient Hypertension continue home amlodipine??10 Mg daily; holding losartan and lasix; FRANK wrap for LE venous stasis Vagina prolapse, mixed incontinence: Patient may bring the Gmetsa from home GERD: Not taking home PPI History of seizures??in remission/migraine: Continue home medications on discharge Constipation:??Continue home medications on discharge ?? Vital Signs?? Temperature: 97.6 DegF (06/21/23 10:57:00) Temperature Route: Oral (06/21/23 10:57:00) Pulse Rate: 66 bpm (06/21/23 10:57:00) Respiratory Rate: 18 br/min (06/21/23 10:57:00) Systolic Blood Pressure: 137 mm Hg (06/21/23 10:57:00) Diastolic Blood Pressure:??87 mm Hg??High (06/21/23 10:57:00) Blood pressure sites: Arm, left (06/21/23 10:57:00) Mean Arterial Pressure: 104 mm Hg (06/21/23 10:57:00) Pulse Pressure: 50 mm Hg (06/21/23 10:57:00) Oxygen Saturation: 100 % (06/21/23 10:57:00) Mode of Delivery (Oxygen): Room air (06/21/23 10:57:00) Early Warning Score: 2 (06/21/23 10:58:13) ? Mobility & Ambulation Level Mobility & Ambulation Level?? No qualifying data available. ?? Therapeutic Activity Therapeutic Activities/Mobility/Balance?? No qualifying data available. ?? . Physical Exam Constitutional: Alert, in no distress. Mental Status: Oriented to person, place and time. Head: Normocephalic. Eyes: Pupils are equal, round and reactive to light. Extraocular muscles intact. Ear, Nose and Throat: Oropharynx clear, mucous membranes moist. Ears and nose without masses, lesions or deformities. Trachea midline. Neck: Supple, Full range of motion. Respiratory: Clear to auscultation. No wheezing, rales or rhonchi. Cardiovascular: S1 S2 regular. No murmurs, rubs or gallops. Gastrointestinal: Abdomen soft, non-tender, non-distended. Normal bowel sounds. No pulsatile mass. No hepatosplenomegaly. Genitourinary: No costovertebral angle tenderness. Neurologic: Cranial nerves II-XII grossly intact. No focal neurological deficits. Flexor plantar response. Moves all extremities spontaneously. Sensation intact bilaterally. Skin: No rashes or lesions. No petechiae or purpura.??LE edema present Musculoskeletal: No cyanosis or clubbing. No gross deformities. Normal range of motion. Heme/Lymphatics/Immun: Palpation of neck reveals no swelling or tenderness of neck nodes. Palpationof groin reveals no swelling or tenderness of groin nodes. Psychiatric: Normal mood and affect [facility] Pending Results CBC ordered on 06/17/2023 Follow-Up Appointments Added Follow Up ?Time Frame ?Comments Petey Hernandez MD?1 week: call to discuss follow up visit?Hospital follow up with nephrology Daryn Duarte MD?1 week: call to discuss follow up visit?Hospital follow up with PCP Patient Instructions Your renal ultrasound was normal and your kidney function has stabilized Hold lasix and losartan on discharge Your nurse will provide you with FRANK wraps which you can wear on your legs to help improve swelling Please follow up with your PCP and nephrology (instructions provided) as soon as possible after discharge so that your renal function can be repeated and BP checked to determine what medication adjustments need to be made Use diclofenac gel on your shoulders for pain control Post Discharge Care Discharge ?06/21/23 11:20:00 EDT Discharge Prescriptions ?ePrescribed, 06/21/23 11:20:00 EDT Home Health Face to Face ^HomeHealthFTF Results Discharge Labs BLOOD COUNT & DIFF WBC 12.3 k/mm3 (High)?? 06/20/2023 01:14 RBC 4.12 m/mm3 (Low)?? 06/20/2023 01:14 Hgb 12.2 Gm/dL ()?? 06/20/2023 01:14 Hct 37.2 % ()?? 06/20/2023 01:14 MCV 90.3 femtoliters ()?? 06/20/2023 01:14 MCH 29.6 pg ()?? 06/20/2023 01:14 MCHC 32.8 g/dL (Low)?? 06/20/2023 01:14 Platelet Count 238 k/mm3 ()?? 06/20/2023 01:14 RDW-SD 45.9 femtoliters ()?? 06/20/2023 01:14 MPV 10.9 femtoliters ()?? 06/20/2023 01:14 Nucleated RBC (Automated) 0.0 #/100 WBC'S ()?? 06/20/2023 01:14 Abs. NRBC 0.0 k/mm3 ()?? 06/20/2023 01:14 Abs. Neut 10.0 k/mm3 (High)?? 06/20/2023 01:14 Abs. Lymph 1.7 k/mm3 ()?? 06/20/2023 01:14 Abs. Anson 0.5 k/mm3 ()?? 06/20/2023 01:14 Abs. Eo 0.0 k/mm3 ()?? 06/20/2023 01:14 Abs. Baso 0.0 k/mm3 ()?? 06/20/2023 01:14 Neut % 81.4 % (High)?? 06/20/2023 01:14 Lymph % 13.8 % (Low)?? 06/20/2023 01:14 Anson % 4.0 % (Low)?? 06/20/2023 01:14 Eos % 0.1 % ()?? 06/20/2023 01:14 Baso % 0.0 % ()?? 06/20/2023 01:14 Imm Gran 0.7 % ()?? 06/20/2023 01:14 Abs. Imm Gran 0.1 k/mm3 ()?? 06/20/2023 01:14 ?? CHEM GENERAL Sodium 144 mmol/L ()?? 06/21/2023 06:56 Potassium 4.7 mmol/L ()?? 06/21/2023 06:56 Chloride 109 mmol/L (High)?? 06/21/2023 06:56 Bicarbonate Level 25 mmol/L ()?? 06/21/2023 06:56 Anion Gap 10 ()?? 06/21/2023 06:56 Glucose Level 93 mg/dL ()?? 06/21/2023 06:56 BUN 46 mg/dL (High)?? 06/21/2023 06:56 Creatinine-Blood 2.1 mg/dL (High)?? 06/21/2023 06:56 Estimated GFR Creatinine 27 ML/MIN/1.73 M2 ()?? 06/21/2023 06:56 Calcium 9.1 mg/dL ()?? 06/21/2023 06:56 Magnesium 2.1 mg/dL ()?? 06/20/2023 01:14 Protein, Total 6.5 Gm/dL ()?? 06/17/2023 15:20 Albumin 4.0 Gm/dL ()?? 06/17/2023 15:20 AG Ratio 1.6 ()?? 06/17/2023 15:20 Alkaline Phosphatase 115 units/L (High)?? 06/17/2023 15:20 AST (SGOT) 13 units/L ()?? 06/17/2023 15:20 ALT (SGPT) 13 units/L ()?? 06/17/2023 15:20 Bilirubin, Total 0.2 mg/dL ()?? 06/17/2023 15:20 C-Reactive Protein 0.9 mg/dL (High)?? 06/17/2023 15:20 ? HEME OTHER Sed Rate 42 mm/hr (High)?? 06/17/2023 15:20 ? UA/URINALYSIS Appear/Color, Urine COLORLESS ()?? 06/19/2023 15:22 Specific [place], Urine 1.012 ()?? 06/19/2023 15:22 pH, Urine 6.5 ()?? 06/19/2023 15:22 Albumin, Urine 2+ (Abnormal)?? 06/19/2023 15:22 Glucose, Urine 3+ (Abnormal)?? 06/19/2023 15:22 Ketones, Urine NEGATIVE ()?? 06/19/2023 15:22 Bilirubin, Urine NEGATIVE ()?? 06/19/2023 15:22 Hemoglobin, Urine TRACE (Abnormal)?? 06/19/2023 15:22 Nitrite, Urine NEGATIVE ()?? 06/19/2023 15:22 Leukocyte, Urine NEGATIVE ()?? 06/19/2023 15:22 Urobilinogen NORMAL mg/dL ()?? 06/19/2023 15:22 WBC's, Urine <1 /HPF ()?? 06/19/2023 15:22 RBC's, Urine 2 /HPF ()?? 06/19/2023 15:22 Squamous Epith <1 /HPF ()?? 06/19/2023 15:22 ?? URINE OTHER Creatinine, Urine Random 48.9 mg/dL ()?? 06/19/2023 15:22 Sodium, Urine Random 66 mmol/L ()?? 06/19/2023 15:22 Chloride, Urine Random 40 mmol/L ()?? 06/19/2023 15:22 Urea Nitrogen, Urine Random 523.6 mg/dL ()?? 06/19/2023 15:22 Protein, Total Urine Random 136 mg/dL ()?? 06/19/2023 15:22 TP/Cr Ratio 2.79 (High)?? 06/19/2023 15:22 Creatinine, Urine 48.9 mg/dL ()?? 06/19/2023 15:22 Malb/Creat Ratio 1989.8 mg/Gm (High)?? 06/19/2023 15:22 Urine Creat For Micro Alb 48.9 mg/dL ()?? 06/19/2023 15:22 Micro-Albumin 973.0 mg/L (High)?? 06/19/2023 15:22 Est Creatinine Clearance 22.33 mL/min ()?? 06/20/2023 02:31 ? Blood Glucose Trend Glucose Level: 93 mg/dL (06/21/23 06:56:00) Glucose Level:??161 mg/dL??High (06/20/23 14:22:00) ? 40??minutes spent on discharge * Amy Vargas RN: PERFORM Event Display: Patient Education/Instruction Authored Date: [id number] Inpatient Adult Discharge Instructions. [place] [id number] Name: LIANET HOBBS : 1965?? Visit: 06/17/2023 18:40?? Current Date: 06/21/2023 12:12 ?? Account: [id number]?? Inpatient Adult Discharge Instructions We would like to thank you for allowing us to assist you with your healthcare needs. The following includes patient education materials and information regarding your injury/illness. Our entire staffstrives to provide an excellent experience for our patients and their families. PLEASE ENSURE YOU FOLLOW-UP PER THE INSTRUCTIONS BELOW! ?? YOUR OPINION IS IMPORTANT TO US! Please complete the survey you may receive by mail or email. Your feedback will be used to make improvements to the healthcare experiences of our patients and their families. Surveys are administered by [employer] ?? If further treatment with your primary care physician or another doctor is recommended, it is important for you to keep the appointment. Call your primary care physician or return to the Emergency Department immediately if your condition worsens, fails to improve, or new symptoms develop. If you need to find a doctor, you can call [facility] Link for a referral at [phone] or toll free at [phone]) or log in to [email or web address].. ?? [facility], in keeping with [facility] guidance, no longer requires face masks for staff, patientsor visitors in most situations. Similiar to time spent indoors at other locations, there is the chance that you were exposed to repiratory viruses during your time with us (such as flu or COVID-19). If you develop symptoms concerning for a viral respiratory infection, please seek testing (and treatment if indicated) from your medical provider or home test kit. ?? You can view and manage your care through the patient portal or by using a health care amber of your choosing. [employer] is a website that allows you to securely view your medical information including your hospital discharge summary, office visit summaries, medications and follow-up visits. You can also request appointments, renew medications, and request access to your medical information using a health care amber of your choosing, or just ask a question. You can enroll at [email or web address] or register during your next office visit. You have been discharged from [facility], Patient Care Unit: D3B??. If you have any questions regarding these instructions, including results of studies pending, afteryou leave, please call us and we will be happy to assist you 20/10. [facility] Your Care Team Attending Physician Crow Keane MD?? Consulting Providers Crow Keane MD?? Discharging Providers Crow Keane MD Reason for Your Visit GCA?? Your Diagnosis Giant cell arteritis Skin yeast infection Tests Performed Below is a partial list of the tests performed during your hospitalization. You may have had other tests and procedures not included in this list. Please discuss all test results with your provider. Basic Metabolic Panel BUN CBC CBC w/ Differential Complete Urinalysis Comprehensive Metabolic Panel Creatinine CRP Electrolytes ESR Lytes MAGNESIUM Potassium Level Sodium Urine UREA NITROGEN, URINE MG/DL Urine Chloride Urine Creatinine Urine Microalbumin Urine Protein/Creatinine Ratio CT Cervical Spine W/O Contrast CT Head/Brain W/O Contrast US Renal Comp XR Knee 1 or 2 Views Left XR Shoulder Min 2 Views Right CBC?? Primary Care Provider Daryn Duarte MD? Advance Directive Health Care Proxy on File Yes - Health Care Proxy Discharge Vitals Temperature: 97.6 DegF Height: 155 cm Pulse Rate: 66 bpm Weight: 94.5 kg Respiratory Rate: 18 br/min Body Mass Index:??37.88 kg/m2??Critical Systolic Blood Pressure: 137 mm Hg Body surface area: 1.98 Diastolic Blood Pressure:??87 mm Hg??High ?? Oxygen Saturation: 100 % ?? Studies Pending All studies ordered during this hospital stay have been completed unless listed below. Please discuss all pending results with your provider listed above in these instructions. ?? CBC?? What to do next Instructions From Your Doctor Your renal ultrasound was normal and your kidney function has stabilized Hold lasix and losartan on discharge Your nurse will provide you with FRANK wraps which you can wear on your legs to help improve swelling Please follow up with your PCP and nephrology (instructions provided) as soon as possible after discharge so that your renal function can be repeated and BP checked to determine what medication adjustments need to be made Use diclofenac gel on your shoulders for pain control ?? Orders? 06/21/23 11:20:00 EDT?? Prescriptions??, ??06/21/23 11:20:00 EDT?? Scheduled Follow-Up Appointments Thursday. 2023 2:20 PM EDT ?? With: Angelito Anand MD Where: [address] [address]- Status: Pending You Need to Schedule the Following Appointments Follow Up with??Petey Hernandez MD When:??Within 1 week: call to discuss follow up visit Why: Hospital follow up with nephrology Where: [address] [place] [address] [facility] [place] [address]- Follow Up with??Daryn Duarte MD When:??Within 1 week: call to discuss follow up visit Why: Hospital follow up with PCP Where: [address] [place] [address]- Discharge Medications LIANET HOBBS :1965 Visit Date:06/17/2023 Medications: Please continue your medications until treatment is completed or stopped by your provider. Medications not listed below should be discontinued. Discuss any questions related to medications with your provider. What How Much When Why Instructions Next Dose New Diclofenac Topical (diclofenac 1% topical gel) 2 gram Topically 4 times a day Pickup at [place], [place] - [phone] Take as directed Changed Amlodipine (amLODIPine 10 mg oral tablet) Take 1 tablet (10 mg total) by mouth 1 (one) time each day ?? Take on tomorrow Changed Budesonide-Formoterol (Symbicort 160mcg/ 4.5mcg Inhaler) 2 puff(s) Inhalation Twice a day Duration: 30 Days Take on tonight Unchanged Albuterol (Albuterol (Eqv-ProAir HFA) 90 mcg/ inh inhalation aerosol) 2 puff(s) Inhalation Every 4 hours as needed for NEEDED FOR WHEEZING take as directed Unchanged amiTRIPTYLINE (amitriptyline 10 mg oral tablet) 1 tab(s) Oral Daily at supper Take on tonight Unchanged dapagliflozin (Farxiga 10 mg oral tablet) Take 10 mg by mouth 1 (one) time each day in the morning ?? Take on tomorrow Unchanged Durable Medical Equipment (Aerochamber) See instructions use with MDI ?? Unchanged Durable Medical Equipment (Aerochamber) See instructions use with MDI ?? Unchanged Durable Medical Equipment (BIPAP 13/ 8 with heated humidification) See instructions use overnight and naps ?? Unchanged Durable Medical Equipment (CPAP Machine) See instructions New script for CPAP and suppliesPatient in the past used J&L Auto CPAP 5cm to 20cm [id number] preferred mask interfaceall required headgear, tubing, filters, etc Dx LEANNA G47.33 ?? Unchanged Durable Medical Equipment (CPAP Equipment) See instructions PAP supplies Refill mask and supplies ??A4604 Heated Tubing/ Climate line or A7037 Tubing ??A7038 ??or A7039 ??Filters ?? A7036 Chin strap A7046 Humidifier Chamber ??A7035 Headgear ?? A7027, A7030, A7031, A7032, A7033, A7034 Nasal, Full or Pillow Mask and parts ?? E0562 Heated Humidifier length of need Lifetime 99 months Dx LEANNA G47.33 ?? Unchanged Lansoprazole (lansoprazole 30 mg oral enteric coated capsule) 1 capsule Oral Twice a day Take on tonight Unchanged linaclotide (Linzess 145 mcg oral capsule) 1 capsule Oral Daily Take on tomorrow Unchanged Magnesium Oxide (magnesium oxide 400 mg oral tablet) 1 tab(s) Oral Daily Take on tomorrow Unchanged Nystatin Topical (nystatin topical 697160 u/ gm cream) 1 amber Topically Twice a day Skin yeast infection Duration: 14 Days Take on tonight Unchanged Rizatriptan (rizatriptan 10 mg oral tablet) 1 tab(s) Oral Daily as needed for NEEDED FOR MIGRAINE HEADACHE MAY REPEAT DOSE ONCE IN 2 HOURS ?? Take as directed Unchanged Topiramate (topiramate 50 mg oral tablet) TAKE 2 TABLETS BY MOUTH IN THE MORNING and TAKE 3 TABLETS IN THE EVENING ?? Take on tonight Unchanged Trospium Chloride (trospium 60 mg oral capsule, extended release) 1 capsule Oral Daily in the morning Take on tomorrow Unchanged vibegron (Gemtesa 75 mg oral tablet) 1 tab(s) Oral Daily Take on tomorrow Pharmacy Information [facility] [phone]: [address], [place] [id number] [phone] ?? What How Much When Comments Stop Taking Furosemide (furosemide 20 mg oral tablet) 1 tab(s) Take 1 tablet (20 mg total) by mouth 1 (one) time each day ?? Stop Taking Furosemide (Lasix 40 mg oral tablet) 1 tab(s) Oral Daily Stop Taking Ipratropium Nasal (ipratropium nasal 21 mcg/ inh spray) See instructions SPRAY ONCE INTO EACH NOSTRIL 2 (two) times a day NEEDED FOR nasal CONGESTION ?? Stop Taking Losartan (losartan 50 mg oral tablet) 1 tab(s) Oral Daily Stop Taking Losartan (losartan 50 mg oral tablet) TAKE 1 TABLET BY MOUTH two (2) times a day ?? Prescription Given During Visit Diclofenac Topical (diclofenac 1% topical gel) - 2 Gm, Topically, 4 times a day, # 240 Gm, 0 Refills, [facility] - [place], [place] - [phone], [address] [place] [address] [phone]?? Laboratory Results Below is a partial list of the most recent Laboratory test results done prior to this discharge. You may have had other tests and procedures not included in this list. Please discuss all test resultswith your provider. Est Creatinine Clearance - 22.33 mL/min (06/20/2023) Basic Metabolic Panel (06/21/2023) ???Sodium - 144 mmol/L???Potassium - 4.7 mmol/L???Chloride - 109 mmol/L???Bicarbonate Level - 25 mmol/L???Anion Gap - 10???Glucose Level - 93 mg/dL???BUN - 46 mg/dL???Creatinine-Blood - 2.1 mg/dL???Estimated GFR Creatinine - 27 ML/MIN/1.73 M2???Calcium - 9.1 mg/dL BUN (06/19/2023) ???BUN - 44 mg/dL CBC (06/19/2023) ???WBC - 12.1 k/mm3???RBC - 4.52 m/mm3???Hgb - 13.3 Gm/dL???Hct - 41.0 %???MCV - 90.7 femtoliters???MCH - 29.4 pg???MCHC - 32.4 g/dL???Platelet Count - 241 k/mm3???RDW-SD - 45.1 femtoliters???MPV - 10.8 femtoliters???Nucleated RBC (Automated) - 0.0 #/100 WBC'S???Abs. NRBC - 0.0 k/mm3 CBC w/ Differential (06/20/2023) ???WBC - 12.3 k/mm3???RBC - 4.12 m/mm3???Hgb - 12.2 Gm/dL???Hct - 37.2 %???MCV - 90.3 femtoliters???MCH - 29.6 pg???MCHC - 32.8 g/dL???Platelet Count - 238 k/mm3???RDW-SD - 45.9 femtoliters???MPV - 10.9 femtoliters???Nucleated RBC (Automated) - 0.0 #/100 WBC'S???Abs. NRBC - 0.0 k/mm3???Abs. Neut - 10.0 k/mm3???Abs. Lymph - 1.7 k/mm3???Abs. Anson - 0.5 k/mm3???Abs. Eo - 0.0 k/mm3???Abs. Baso - 0.0 k/mm3???Neut % - 81.4 %???Lymph % - 13.8 %???Anson % - 4.0 %???Eos % - 0.1 %???Baso % - 0.0 %???Imm Gran - 0.7 %???Abs. Imm Gran - 0.1 k/mm3 Complete Urinalysis (06/19/2023) ???Appear/Color, Urine - COLORLESS???Specific [place], Urine - 1.012???pH, Urine - 6.5???Albumin, Urine - 2+???Glucose, Urine - 3+???Ketones, Urine - NEGATIVE???Bilirubin, Urine - NEGATIVE???Hemoglobin, Urine - TRACE???Nitrite, Urine - NEGATIVE???Leukocyte, Urine - NEGATIVE???Urobilinogen - NORMAL???WBC's, Urine - <1 /HPF? ?RBC's, Urine - 2 /HPF? ?Squamous Epith - <1 /HPF Comprehensive Metabolic Panel (06/17/2023) ???Sodium - 140 mmol/L???Potassium - 4.3 mmol/L???Chloride - 103 mmol/L???Bicarbonate Level - 25 mmol/L???Anion Gap - 12???Glucose Level - 112 mg/dL???BUN - 22 mg/dL???Creatinine-Blood - 1.6 mg/dL???Estimated GFR Creatinine - 37 ML/MIN/1.73 M2???Calcium - 9.2 mg/dL???Protein, Total - 6.5 Gm/dL???Albumin - 4.0 Gm/dL???AG Ratio - 1.6???Alkaline Phosphatase - 115 units/L???AST (SGOT) - 13 units/L???ALT (SGPT) - 13 units/L???Bilirubin, Total - 0.2 mg/dL Creatinine (06/19/2023) ???Creatinine-Blood - 2.3 mg/dL???Estimated GFR Creatinine - 24 ML/MIN/1.73 M2 CRP (06/17/2023) ???C-Reactive Protein - 0.9 mg/dL Electrolytes (06/19/2023) ???Sodium - 138 mmol/L???Potassium - 4.9 mmol/L???Chloride - 101 mmol/L???Bicarbonate Level - 22 mmol/L???Anion Gap - 15 ESR (06/17/2023) ???Sed Rate - 42 mm/hr Lytes (06/18/2023) ???Sodium - 139 mmol/L???Potassium - 5.0 mmol/L???Chloride - 103 mmol/L???Bicarbonate Level - 23 mmol/L???Anion Gap - 13 MAGNESIUM (06/20/2023) ???Magnesium - 2.1 mg/dL Potassium Level (06/17/2023) ???Potassium - 4.4 mmol/L Sodium Urine (06/19/2023) ???Sodium, Urine Random - 66 mmol/L UREA NITROGEN, URINE MG/DL (06/19/2023) ???Urea Nitrogen, Urine Random - 523.6 mg/dL Urine Chloride (06/19/2023) ???Chloride, Urine Random - 40 mmol/L Urine Creatinine (06/19/2023) ???Creatinine, Urine Random - 48.9 mg/dL Urine Microalbumin (06/19/2023) ???Malb/Creat Ratio - 1989.8 mg/Gm???Urine Creat For Micro Alb - 48.9 mg/dL???Micro-Albumin - 973.0mg/L Urine Protein/Creatinine Ratio (06/19/2023) ???Protein, Total Urine Random - 136 mg/dL???TP/Cr Ratio - 2.79???Creatinine, Urine - 48.9 mg/dL Allergies (NKA means No Known Allergies) Benadryl Demerol HCl Dilaudid codeine diphenhydrAMINE meperidine morphine Problems Active Problems??(12) Adult BMI 39.0-39.9 kg/sq m?? Anxiety and depression, [facility]?? Asthma?? Excessive daytime sleepiness?? Hypertension?? Migraines?? Obstructive sleep apnea?? Osteoarthritis?? Postcoital bleeding?? Seizures?? Severe obesity (BMI 35.0-39.9) with comorbidity?? SUN (stress urinary incontinence, female)?? Education Materials Below is the list of Educational Leaflet Providered with your Discharge Instructions. Valuables and Belongings I fully understand and agree that [facility] accepts no responsibility for all my personal property including clothing, toilet articles, radios, jewelry, dentures, hearing aids, rings, money, or any other property that is in my possession or is brought to me after admission. I understand certain valuables may be placed in a hospital safe for a short period of time. I understand that the hospital is not liable for loss or damage due to accident, fire, or other natural occurrence while said property is in the safe. I accept full responsibility for any personal property that I keep with me, and will not hold the hospital responsible in case of loss or disappearance. I acknowledge that i have been encouraged to send valuables and belongings home. ?? Review of Valuable and Belonging List: With patient Date for Pt to Sign Valuables/Belongings: 06/17/23 18:38:00 ?? Other Discharge Information ? Pulmonary Rehab Status?? Pulmonary Rehab Discharge Status?? CPAP/BiPAP Mask Type: Full CPAP/BiPAP Mask Size: Medium Respiratory Rate: 18 br/min ? Common Emergency Awareness Tips IS IT A STROKE? Act FAST and Check for these signs: FACE Does the face look uneven? ARM Does one arm drift down? SPEECH Does their speech sound strange? TIME Call at any sign of stroke ?? Heart Attack Signs Chest discomfort: Most heart attacks involve discomfort in the center of the chest and lasts more than a few minutes, or goes away and comes back. It can feel like uncomfortable pressure, squeezing, fullness or pain. Discomfort in upper body: Symptoms can include pain or discomfort in one or both arms, back, neck, jaw or stomach. Shortness of breath: With or without discomfort. Other signs: Breaking out in a cold sweat, nausea, or lightheaded. Remember, MINUTES DO MATTER. If you experience any of these heart attack warning signs, call to get immediate medical attention! ?? Smoking can increase your chances of developing chronic health problems and can cause harmful effects to other family members in your house. If you smoke, you are strongly encouraged to quit. Please call [facility] [employer] [facility] at [phone] or [phone] ([phone]) or log in to [email or web address] for referrals to smoking cessation programs. ?? 873 Suicide & Crisis Lifeline is available 20/10 if you or someone you know needs to find a reason to keep living. By calling 839 you'll be connected to a skilled, trained counselor at a crisis center in your area. INPATIENT DISCHARGE INSTRUCTIONS SIGNATURE PAGE LIANET HOBBS Location:[facility] Registration Date and Time:06/17/2023 18:40 EDT Primary Care Physician: Gerald MATIAS, Daryn Janna, Attending Physician: Diya MATIAS, [facility], I LIANET HOBBS, have received the above patient education materials/instructions and have verbalizedunderstanding. If ambulance or transport services are being used I further acknowledge being given a choice of service. ?? If you need to contact me, please call me at this number: . Patient/Inventory Checker Name: Patient/Inventory Checker Signature: Relationship to Patient: Witness Name/Signature: Date: Patient Care team information Care Team Personnel Name: Gerald MATIAS, Daryn Saldivar Position: Reference Physician Member Role: PCP Address: Address: [address] [place] [address]- Name: Kusum Oviedo RN Position: S RN Member Role: Primary Care Nurse Name: Esperanza Vásquez RN Position: Janna RN Member Role: Primary Care Nurse Name: Natasha Lucia RN Position: S RN Member Role: Primary Care Nurse Name: Petey Hernandez MD Position: Janna Renal MD Member Role: Lifetime Consulting Physician Address: Address: [address] [place] [address] [facility] [place] [address]- Care Team Related Persons Name: ROSE MARY CROOKS Address: [address] [address]
--- OUTSIDE RECORDS SUMMARY | 2023-08-25 09:22 | XMS_ITS | Continuity of Care Document ---
Author Organization [facility] Address [address] [place] [address]- Care Team Providers Care Olive Grader Name Role Phone Daryn Duarte MD Primary Care Physician [phone] Encounter [facility] [place] Date(s): 05/23/20 - 06/22/20 [facility] [address] [address] Attending Physician: Admtr, Ar8 Admitting Physician: Admtr, Ar8 Referring Physician: Admtr, [...] 9:34:00 EST, Aerosol, Route to Pharmacy Electronically, [id number], [place], [place] - [id number], 155, cm,... Start Date: 04/09/20 Status: Ordered amLODIPine 2.5 mg oral tablet 2.5 mg, 1, tablet, By Mouth, Daily, # 30 tablet, Refills 0, Tot. Refills 0, Maintenance, 07/07/19 11:33:00 EDT, Do Not Route Start Date: 07/07/19 Status: Ordered BIPAP 13/8 with heated humidification BIPAP 138 with heated humidification, See Instructions, # 1 each, Refills 0, Tot. Refills 0, Maintenance, use overnight and naps, 09/07/19 18:32:00 EDT, Compound Start Date: 09/07/19 Status: Ordered ipratropium nasal 21 mcg/inh spray See Instructions, PRN Nasal Congestion, 1 spray each nostril BID, # 1 each, 4 Refills, Maintenance,09/07/19 14:10:00 EDT, [place], [place] -, 1 spray each nostril BID,PRN:Nasal [...] 11/28/20 8:50:00 EDT, 05/02/20 8:50:00 EST, Tablet, [place], [place] - [id number], Partial fill upon patient request if the prescription is for a schedule... Start Date: 05/02/20 Stop Date: 11/28/20 Status: Ordered rizatriptan 10 mg oral tablet 1 tablet, By Mouth, Daily, PRN NEEDED FOR MIGRAINE HEADACHE, for 30 days, MAY REPEAT DOSE ONCE IN 2 HOURS, # 9 tablet, 6 Refills, Acute 11/28/20 8:50:00 EDT, 05/02/20 8:50:00 EST, [place], [place] - [id number], 155, cm, 04/11/20 15... Start Date: 05/02/20 [...] 150 tablet, 6 Refills, 05/02/20 8:50:00 EST, [place], [place] - [id number], 155, cm, 04/11/20 15:15:00 EST, Height, 89, kg, 03/07/... Start Date: 05/02/20 Status: Ordered Ventolin HFA 108 mcg/inh inhalation aerosol with adapter 2 puffs, Inhalation, Every 4 hours, PRN for wheezing, # 1 each, 5 Refills, Maintenance, 09/28/19 8:27:00 EDT, Aerosol, [place], [place] -, 155, cm, 09/07/19 13:51:00 EDT, Height, 94,kg, 11/23/18 12:52:00 EDT, Dry Weight Start Date: 09/28/19 Status: Ordered Problem List Condition Effective Dates Status Health Status Inform ant Adult BMI 39.0-39.9 kg/sq m(Confirmed) Active Excessive daytime sleepiness(Confirmed) Active Anxiety and depression, [facility] psychiatry(Confirmed) Active SUN (stress urinary incontin ence, female)(Confirmed) Active Obstructive sleep apnea(Confirmed) Active Osteoarthritis(Confirmed) Active Postcoital bleeding(Confirmed) Active Seizures(Confirmed) 1 Active 1states last attack was in 2011 Social History Social History Type Response Smoking Status Former smoker, quit more than 30 days ago; Other: Quit 2013; entered on: 07/05/18 Sex
--- OUTSIDE RECORDS SUMMARY | 2023-08-25 09:22 | XMS_ITS | Continuity of Care Document ---
Author Organization [facility] Address [address], [place] [address]- Care Team Providers Care Technical Support Agent Name Role Phone Daryn Duarte MD Primary Care Physician [phone] [place] [facility]05[place]23 - 07/05/23 [facility] [address] [place] [address]- Attending Physician: Natalia Peterson Admitting Physician: AdmNatalia barnes Referring Physician: Admtr ArAb Allergies, Adverse Reactions, Alerts Substance Reaction Severity [...] 04/06/23 14:54:00 EST, Route to Pharmacy Electronically, [place], [place] - [phone], Partial fill upon patient request if the [...] used J&L Auto CPAP 5cm to 20cm [id number] preferred mask interfaceall required headgear, tubing, filters, [...] 0 Refills, Maintenance, 06/21/23 11:17:00 EDT, Gel, [place], [place] - [phone], Partial fill upon patient request if the [...] 5 Refills, Maintenance, 05/08/23 11:49:00 EST, Tablet, [place], [place] - [id number], Partial fill upon patient request if the [...] tablet, 6 Refills, Maintenance, 08/05/22 8:17:00 EDT, [facility], 156, cm, 02/27/22 10:16:00 EST, Height, 88.9, kg, 09/25/21 10:32:00 EDT, Dry Weight Start Date: 08/05/22 Status: Ordered nystatin topical 750694 u/gm cream 1 application, Topically, 2 times a day, # 30 Gm, 1 Refills, Maintenance, 02/18/23 9:35:00 EST, Cream, [place], [place] - [id number], Partial fill upon patient request if the prescription is for a schedule II opioid drug., 1 applicati... Start Date: 02/18/23 Stop Date: 03/18/23 Status: Ordered rizatriptan 10 mg oral tablet 1 tablet, By Mouth, Daily, PRN NEEDED FOR MIGRAINE HEADACHE, MAY REPEAT DOSE ONCE IN 2 HOURS, # 9 each, 6 Refills, Maintenance, 03/05/23 13:15:00 EST, [facility], 156, cm, 02/18/23 8:58:00 EST, Height, 90.9, kg, 02/18/23 8:58:00 EST, Dry Weight Start Date: 03/05/23 Status: Ordered Symbicort 160mcg/4.5mcg Inhaler 2, puffs, Inhalation, 2 times a day, # 1 each, Refills 6, Tot. Refills 6, Maintenance, 02/16/23 14:13:00 EST, Aerosol, Route to Pharmacy Electronically, [id number], [place], [place] - [id number], 156, cm, .. Start Date: 02/16/23 Stop [...] Refills, Maintenance, 04/21/23 13:53:00 EST, CR Capsule, [place], [place] - [id number], Partial fill upon patient request ifthe prescription is for a schedule II opioid drug.,... Start Date: 04/21/23 Status: Ordered Problem List Condition Confirmation Course Effective Dates Status H ealth Status Informant Adult BMI 39.0-39.9 kg/sq m Confirmed Active Excessive daytime sleepiness Confirmed Active Anxiety and depression, [facility] Confirmed Active SUN (stress urinary incontinence, [...] Reference Physician Member Role: PCP Address: Address: [address] [place] [address] Drive [address] [place] [address] Name: Kusum Oviedo RN Position: S RN Member Role: Primary Care Nurse Name: Esperanza Vásquez RN Position: S RN Member Role: Primary Care Nurse Name: Natasha Lucia RN Position: S RN Member Role: Primary Care Nurse Name: Petey Hernandez MD Position: GREGORIO Renal MD Member Role: Lifetime Consulting Physician Address: Address: [address] [place] [address] [facility] [place] [address]- Care Team Related Persons Name: ROSE MARY CROOKS Address: home [address] [place] [address]
--- OUTSIDE RECORDS SUMMARY | 2023-08-25 09:22 | XMS_ITS | Continuity of Care Document ---
Author Organization [facility] Address [address] [place] [address]- Care Team Providers Care Correspondence School Instructor Name Role Phone Daryn Duarte MD Primary Care Physician Encounter [facility] [place] Date(s): 12/07/19 - 01/06/20 [facility] [address] [address]- [facility] Attending Physician: Admmolly, Shayan8 Admitting Physician: Admtr, Ar8 Referring Physician: Admtr, [...] 1 each, 4 Refills, Maintenance,09/07/19 14:10:00 EDT, [facility] - [place], [place] -, 1 spray each nostril BID,PRN:Nasal [...] 13:18:09 EDT Start Date: 08/24/18 Status: Ordered rizatriptan 10 mg oral tablet 1 tablet = 10 mg, By Mouth, Daily, PRN for migraine headache, may repeat dose once in 2 hours, # 9 tablet, 4 Refills, Soft Stop, 10/13/19 11:20:00 EDT, Tablet, [place], [place] -, sumatriptan tried and was not too helpful., 155, cm, 0... Start Date: 10/13/19 Stop Date: 03/11/20 Status: Ordered Symbicort 160mcg/4.5mcg Inhaler 2, puffs, [...] THE EVENING, # 150 tablet, 6 Refills, 12/22/19 16:34:00 EDT, [place], [place] - [id number], 155, cm, 12/07/19 15:42:00 EDT, Height, 94, kg, 11/23... Start Date: 12/22/19 Status: Ordered Ventolin HFA 108 mcg/inh inhalation aerosol with adapter 2 puffs, Inhalation, Every 4 hours, PRN for wheezing, # 1 each, 5 Refills, Maintenance, 09/28/19 8:27:00 EDT, Aerosol, [facility] - [place], [place] -, 155, cm, 09/07/19 13:51:00 EDT, Height, 94,kg, 11/23/18 12:52:00 EDT, Dry Weight Start Date: 09/28/19 Status: Ordered Problem List Condition Effective Dates Status Health Status Inform ant Adult BMI 39.0-39.9 kg/sq m(Confirmed) Active Sleep related hypoventilation/hypoxemia in other disease(Confirmed) Active Excessive daytime sleepiness(Confirmed) Active Anxiety and depression, vall ey psychiatry(Confirmed) Active SUN (stress urinary incontin ence, female)(Confirmed) Active Obstructive sleep apnea(Confirmed) Active Osteoarthritis(Confirmed) Active Postcoital bleeding(Confirmed) Active Restless leg syndrome(Confirmed) Active Seizures(Confirmed) 1 Active 1states last attack was in 2011 Social History Social History Type Response Smoking Status Former smoker, quit more than 30 days ago; Other: Quit 2013; entered on: 07/05/18 Sex
--- OUTSIDE RECORDS SUMMARY | 2023-08-25 09:22 | XMS_ITS | Continuity of Care Document ---
Author Organization [facility] [employer] Address [address] [facility] [address], [address] [address]- Care Team Providers Care Travel Money Advisor Name Role Phone Daryn Duarte MD Primary Care Physician Encounter [facility] Date(s): 02/18/23 - 03/20/23 [facility] [employer] [address] [facility], [address] [place] [address]- Attending Physician: Natalia Peterson Admitting Physician: AdmtrNatalia Referring Physician: Admtr ArAb Allergies, Adverse Reactions, [...] kg, 02/18... Start Date: 03/05/23 Status: Ordered amLODIPine 2.5 mg oral tablet [...] used [employer] Auto CPAP 5cm to 20cm [id number] preferred mask interfaceall required headgear, tubing, filters, etc Dx LEANNA G47.33, 01/29... Start Date: 02/18/23 Status: Ordered ipratropium nasal 21 mcg/inh spray See Instructions, SPRAY ONCE INTO EACH NOSTRIL 2 (two) times a day NEEDED FOR nasal CONGESTION, # 30 mL, 4 Refills, [facility], 30, SPRAY ONCE INTO EACH NOSTRIL [...] tablet, 6 Refills, Maintenance, 08/05/22 8:17:00 EDT, [facility], 156, cm, 02/27/22 10:16:00 EST, Height, 88.9, kg, 09/25/21 10:32:00 EDT, Dry Weight Start Date: 08/05/22 Status: Ordered nystatin topical 031225 u/gm cream 1 application, Topically, 2 times a day, # 30 Gm, 1 Refills, Maintenance, 02/18/23 9:35:00 EST, Cream, [facility] - [place], [place] - [phone], Partial fill upon patient request if the prescription is for a schedule II opioid drug., 1 applicati... Start Date: 02/18/23 Stop Date: 03/18/23 Status: Ordered rizatriptan 10 mg oral tablet 1 tablet, By Mouth, Daily, PRN NEEDED FOR MIGRAINE HEADACHE, MAY REPEAT DOSE ONCE IN 2 HOURS, # 9 each, 6 Refills, Maintenance, 03/05/23 13:15:00 EST, [facility], 156, cm, 02/18/23 8:58:00 EST, Height, 90.9, [...] 14:13:00 EST, Aerosol, Route to Pharmacy Electronically, [id number], [facility] - [place], [place] - [phone], 156, cm, . Start Date: 02/16/23 Stop Date: 09/14/23 Status: Ordered topiramate 50 mg oral tablet See Instructions, TAKE 2 TABLETS BY MOUTH IN THE MORNING and TAKE 3 TABLETS IN THE EVENING, # 150 tablet, 6 Refills, Maintenance, 03/05/23 13:15:00 EST, [facility], 156, cm, 02/18/23 8:58:00 EST, Height, 90.9, kg, 02/18/23 8:58:00 EST, Dry Weight Start Date: 03/05/23 Status: Ordered Problem List Condition Confirmation Course Effective Dates Status H ealth Status Informant Adult BMI 39.0-39.9 kg/sq m Confirmed Active Excessive daytime sleepiness Confirmed Active Anxiety and depression, [facility] Confirmed Active SUN (stress urinary incontinence, [...] Reference Physician Member Role: PCP Address: Address: [address] [place] [address] [place] [id number]- Name: Fahad ESCALANTE, Esperanza Position: Janna TRIANA Nurse Member Role: Primary Care Nurse Name: Natasha Lucia RN Position: S RN Member Role: Primary Care Nurse Care Team Related Persons Name: ROSE MARY CROOKS Address: home [address] [place] [id number]
--- OUTSIDE RECORDS SUMMARY | 2023-08-25 09:22 | XMS_ITS | Continuity of Care Document ---
Author Organization [facility] [employer] [facility] Address [address] [facility] [address] [facility], [address] [place] [address]- Care Team Providers Care Salvager Name Role Phone Daryn Duarte MD Primary Care Physician [facility] [id number] Date(s): 09/25/21 - 10/25/21 [facility] [employer] [facility] [address] [facility] [address] [place], [place] [address] Attending Physician: Admtr, Ar8 Admitting Physician: Admtr, Ar8 Referring Physician: Admtr, Ar8 Allergies, Adverse Reactions, Alerts Substance Reaction Severity Status codeine Active meperidine Active Demerol HCl Active diphenhydrAMINE Active morphine 1 Active Dilaudid Active Benadryl Active 1pt states bad reaction Medications Aerochamber See Instructions, # 1 each, Maintenance, use with MDI, 03/12/16 10:08:16, Compound Start Date: 03/12/16 Status: Ordered Albuterol (Eqv-ProAir HFA) 90 mcg/inh inhalation aerosol 2 puffs, Inhalation, Every 4 hours, PRN NEEDED FOR WHEEZING, # 8.5 Gm, 5 Refills, [facility], 17, INHALE 2 PUFFS BY MOUTH INTO THE lungs EVERY 4 HOURS NEEDED FOR WHEEZING, 155, cm, 08/28/21 11:10:00 EDT, Height, 89, kg, 03/07/20 14:23:00 ES... Start Date: 09/06/21 Status: Ordered amLODIPine 2.5 mg oral tablet 2.5 mg, 1, tablet, By Mouth, Daily, # 30 tablet, Refills 0, Tot. Refills 0, Maintenance, 07/07/19 11:33:00 EDT, Do Not Route Start Date: 07/07/19 Status: Ordered BIPAP 13/8 with heated humidification BIPAP 09/11 with heated humidification, See Instructions, # 1 each, Refills 0, Tot. Refills 0, Maintenance, use overnight and naps, 09/07/19 18:32:00 EDT, Compound Start Date: 09/07/19 Status: Ordered budesonide-formoterol 160 mcg-4.5 mcg/inh inhalation aerosol with adapter See Instructions, INHALE 2 PUFFS BY MOUTH INTO THE lungs 2 (two) times a day (IN THE MORNING AND INTHE EVENING). USE WITH spacer chamber. rinse mouth and throat after use, # 10.2 Gm, Refills 5, Instructions Replace Required Details, Route to Pharmacy... Start Date: 08/07/21 Status: Ordered ipratropium nasal 21 mcg/inh spray See Instructions, SPRAY ONCE INTO EACH NOSTRIL 2 (two) times a day NEEDED FOR nasal CONGESTION, # 30 mL, 4 Refills, [facility], 30, SPRAY ONCE INTO EACH [...] oral tablet 1 tablet, By Mouth, Daily, for 30 days, # 30 tablet, 6 Refills, Physician Stop 12/10/21 10:47:00 EDT, 05/14/21 10:47:00 EST, [facility] [place], [place] - [phone], 155, cm, 01/24/21 8:11:00 EDT, Height, 89, kg, 03/07/20 14:23:00 EST, Dry Weight Start Date: 05/14/21 Stop Date: 12/10/21 Status: Ordered rizatriptan 10 mg oral tablet 1 tablet, By Mouth, Daily, PRN NEEDED for migraine HEADACHE, for 30 days, MAY REPEAT DOSE ONCE IN 2 HOURS, # 9 tablet, 6 Refills, Physician Stop 12/10/21 10:46:00 EDT, 05/14/21 10:46:00 EST, [facility], [place] - [id number], 155, cm,... Start Date: 05/14/21 Stop Date: 12/10/21 Status: Ordered topiramate 50 mg oral tablet See Instructions, TAKE 2 TABLETS BY MOUTH IN THE MORNING and TAKE 3 TABLETS IN THE EVENING, # 150 tablet, 6 Refills, 05/14/21 10:46:00 EST, [facility], [place] - [phone], 155, cm, 01/24/21 8:11:00 EDT, Height, 89, kg, 03/07/20 14:23:0... Start Date: 05/14/21 Status: Ordered Problem List Condition Effective Dates Status Health Status Inform ant Adult BMI 39.0-39.9 kg/sq m(Confirmed) Active Excessive daytime sleepiness(Confirmed) Active Anxiety and depression, [facility](Confirmed) Active SUN (stress urinary incontin ence, female)(Confirmed) Active Obese class II(Confirmed) Active Obstructive sleep apnea(Confirmed) Active Osteoarthritis(Confirmed) Active Postcoital bleeding(Confirmed) Active Seizures(Confirmed) 1 Active 1states last attack was in 2011 Social History Social History Type Response Smoking Status Former smoker, quit more than 30 days ago; Other: Quit 2013; entered on: 07/05/18 Sex
--- NOTE | 2023-08-25 10:41 | MHC.SHP ---
Pre-Procedural Eval Section A - 24 Hr Update-Section A only Date of Service: 08/25/23 Section B - Complete if H&P > 30 days Chief Complaint: RENAL RIGHT,PROTEINURIA Details of Present Illness: 58 y/o female with proteinuria and worsening renal function Relevant Family History (Specify if Yes): No Relevant Social History: None Present Medications: see Short Stay Collaborative assessment Medical History: Significant History History of Previous Operations: No relevant previous surgery Allergies: Allergies Allergy/AdvReac Type Severity Reaction Status Date / Time diphenhydramine Allergy Severe Angioedema Verified 08/25/23 09:42 [From Benadryl] hydromorphone [From Dilaudid] Allergy Intermediate Increased Verified 08/25/23 09:42 BP FRANK Inhibitors Allergy Unknown PER H&P Verified 08/25/23 09:42 [FRANK INHIBITORS] codeine Allergy Unknown Rash Verified 08/25/23 09:42 meperidine Allergy Unknown Rash Verified 08/25/23 09:42 morphine Allergy Unknown RASH, DIFF Verified 08/25/23 09:42 BREATHING,CHEST PRESSURE, throat swelling TAPE,PLASTIC Allergy Unknown Rash Uncoded 08/25/23 09:42 Review of Systems Sugical H&P ROS: Negative: Constitution, Cardiovascular and Respiratory Exam Surgical H&P Exam: Normal: Heart, Normal: Lungs, Normal: Abdomen and Normal: Neurological and Not Evaluated: HEENT Plan Diagnosis/Plan: Unchanged I have reviewed the history and physical and performed a pertinent physical examination on my patient. No changes have occurred unless specified. Non-targeted renal biopsy Time Spent With Patient Time: Total time managing care of this patient today ____ minutes.
[2023-08-25] MEDS: Lidocaine HCl 1 % MPF 30 ML VIAL 10 ML SUBCUT (11:45)
== END 2023-08-25 14:30 | disposition home or self-care (01) ==
PROVIDERS: Physician Assistant Surgical; Student in an Organized Health Care Education/Training Program; PCP Internal Medicine; Visit Provider Internal Medicine Hypertension Specialist
DX: R80.9 Proteinuria, unspecified (principal); I12.9 Hypertensive chronic kidney disease with stage 1 through stage 4 chronic kidney disease, or unspecified chronic kidney disease; N18.32 Chronic kidney disease, stage 3b; Z88.5 Allergy status to narcotic agent; Z88.8 Allergy status to other drugs, medicaments and biological substances
CPT/HCPCS: 50200; 77012; 86850; 86900; 86901; 88300; 88305; 88313; 88346; 88348; 88350; 99152; 99153; J0360; J2250; J2310; J3010

== ENCOUNTER → 2023-08-25 10:25 | Outpatient (BNV) | payer OTHER, SELFPAY | PROVIDERS: PCP Internal Medicine; Visit Provider Physician Assistant Surgical | DX: R80.9 Proteinuria, unspecified (principal) | CPT/HCPCS: 50200; 77012 ==

== ENCOUNTER 2023-08-31 11:08 | Outpatient (AMB) | payer OTHER, SELFPAY ==
--- NOTE | 2023-08-31 11:23 | A.OFFPC_ITS ---
Vital Signs 08/31/23 11:25 Height 5 ft 1 in Weight 206 lb 8 oz BMI 39.0 BP 118/72 Blood Pressure Location Lt brachial Position Sitting Pulse 59 Pulse Source Pulse Oximeter Pulse Oximetry (%) 95 Oxygen Delivery Method Room Air Intake Visit Reasons: 3mth f/u Intake Note: Patient is here to follow up on CKD, LEANNA, HTN, Asthma. Inspector And Sorter Required: No Lens Mounter: Not Required per policy Accompanied by: Self / Same As Patient Allergies diphenhydramine [From Benadryl] Allergy (Severe, Verified 08/31/23 12:12) Angioedema hydromorphone [From Dilaudid] Allergy (Intermediate, Verified 08/31/23 12:12) Increased BP FRANK Inhibitors [FRANK INHIBITORS] Allergy (Unknown, Verified 08/31/23 12:12) PER H&P codeine Allergy (Unknown, Verified 08/31/23 12:12) Rash meperidine Allergy (Unknown, Verified 08/31/23 12:12) Rash morphine Allergy (Unknown, Verified 08/31/23 12:12) RASH, DIFF BREATHING,CHEST PRESSURE, throat swelling TAPE,PLASTIC Allergy (Unknown, Uncoded 08/31/23 12:12) Rash Medication List - Last Reconciled 08/31/23 by Daryn uDarte MD [ADULT PULL UPS (medium) As directed - #60 / month (2 pull ups/day) with 12 refills] albuterol sulfate 90 mcg/actuation 2 puffs PO Q4H PRN amitriptyline 10 mg PO BEDTIME amlodipine 10 mg PO DAILY [BEDSIDE COMMODE As directed] [bladder pads As directed - #90/month (3 pads / day), with 12 refills] budesonide-formoterol 160-4.5 mcg/actuation 2 inhalations inhalation BID cholecalciferol (vitamin D3) 25 mcg PO DAILY [CPAP device As directed] dapagliflozin propanediol (Farxiga) 10 mg PO DAILY diclofenac sodium 1% (Arthritis Pain (diclofenac)) 2 grams topical QID PRN [foot pedal As directed] furosemide 20 mg PO DAILY [incontinence wipes As directed] lansoprazole 30 mg PO DAILY linaclotide (Linzess) 145 mcg PO QAM losartan 50 mg PO DAILY magnesium oxide 400 mg PO DAILY nystatin 1 appl topical BID sennosides (Savanna-dean) 17.2 mg (2 x 8.6 mg) PO BEDTIME simethicone (Gas Relief Extra Strength) 125 mg PO QID PRN tizanidine 2 mg PO BID PRN topiramate 100 mg PO BID trospium ER 60 mg PO DAILY vibegron (Gemtesa) mg PO ONCE Tobacco use date assessed: 08/31/23 Dental Screening Dental Screen Date: 05/12/23 HPI 3mth f/u HPI Details Patient comes in today for her follow up visit States that she currently feels okay Recalls that she was seen by Dr. Stack a few months ago for consultation regarding weight loss but she was very hesitant to proceed with the surgical / bariatric option and she was referred instead to the medical weight loss side instead States that she recently contacted Dr. Galdamez's office at [place] and is now scheduled to be seen there on October 05, 2023 - is requesting for a referral to them at this time She continues to experience increased pain in both knees and is finding it more and more difficult to walk and move around now due to her knee pains - states that legs often tend to cramp up as a result Knee x-rays done a couple of months ago revealed (+) OA changes in both knees and she is scheduled to see Dr. Bess in a couple of weeks for orthopedic consultation regarding her knee issues She denies any headaches or dizziness Denies any chest pains, no increased SOB No nausea/vomiting, no abdominal pain No change in bowel habits noted Needs her Nystatin cream Rx refilled She did not get her follow up labs done recently but states that she had some l abs done for nephrology in June 2023 - is advised that these are non-fasting labs and did not include her cholesterol levels [facility] Medical History Urinary incontinence Breast calcification, right Chronic renal insufficiency Asthma Migraine Normal colonoscopy (~12/25/16) Obstructive sleep apnea Benign essential hypertension Diverticulitis Vitamin D deficiency Hypertension Surgical History History of biopsy History of facial surgery History of carpal tunnel repair History of nasal surgery History of ankle surgery (~2012) History of cryosurgery History of pubovaginal sling Hx of hernia repair History of bilateral tubal ligation Hx laparoscopic cholecystectomy (~2001) History of esophagogastroduodenoscopy Hx of colonoscopy Family History Mother High blood pressure Diabetes Arthritis Father Diabetes Kidney disease Heart disease Brother Diabetes Maternal Aunt Cancer of breast Brother Colon cancer, Onset Age: 57 Maternal Grandmother Cancer of breast Social History Household Members: None Housing: Apartment Alcohol intake: current Alcohol intake frequency: a few times a month Alcohol type: wine and hard liquor Patient Tobacco Use Status: Former Tobacco user Tobacco use type: Cigarette Years Smoked: 7 e-Cigarette/Vaping Use: Never Used Second Hand Smoke Exposure: No service: No Current occupational status: disabled Cognitive needs: No Hearing needs: No Vision needs: Yes Female Reproductive History Menstrual Age of Menarche: 13 Questionnaire Thrive Questionnaire Date Thrive assessed: 05/12/23 JACOB-7 AMB Questionnaire JACOB-7 Date JACOB - 7 assessed: 05/12/23 Source: Developed by Drs. Loi Fan, Lucia Lua, Trevor Lynch and colleagues, with an educational dion from [employer]. Review of Systems Const Denies chills, Reports fatigue, Denies fever(s), Denies headache(s) and Reports weight gain ENT Denies dysphagia, Denies dizziness, Denies otalgia, Denies headache(s), Denies neck pain, Denies odynophagia and Denies sore throat Card Denies chest pain, Denies rapid heart rate, Denies irregular heart rhythm, Denies palpitations and Reports dyspnea on exertion (mild) Resp Denies chest congestion, Denies cough, Reports dyspnea on exertion (mild) and Denies wheezing GI Denies abdominal pain, Denies constipation, Denies dysphagia, Denies heartburn, Denies diarrhea, Denies nausea, Denies odynophagia and Denies vomiting Denies difficulty voiding, Denies nocturia, Denies dysuria and Reports urinary incontinence Musc Reports back pain (more on the left side), Reports arthralgias (increasing pain in both knees), Reports muscle cramps (in both legs, with increased activity or walking), Denies neck pain and Reports radiating pain into limb (down her left leg) Skin/Breast Denies rash Neuro Denies dizziness, Denies headache(s) and Denies paresthesias Psych Denies anxiety Endo Reports fatigue and Denies palpitations Aller/Immun Denies wheezing Physical exam (Primary Care) Vital Signs: Last Vital Signs Pulse 59 08/31/23 11:25 BP 118/72 08/31/23 11:25 Pulse Ox 95 08/31/23 11:25 Oxygen Delivery Method Room Air 08/31/23 11:25 BMI result Body Mass Index 39.0 Tobacco/Smoking Status: Tobacco use Status Tobacco use date assessed 08/31/23 08/31/23 11:32 Patient Tobacco Use Status Former Tobacco user 08/31/23 11:32 Tobacco use type Cigarette 08/31/23 11:32 e-Cigarette/Vaping Use Never Used 08/31/23 11:32 Thrive Assessment: Date of Thrive Assessment Date Thrive assessed 05/12/23 08/31/23 11:32 Const General: no acute distress and alert HENMT Ears: TM's normal bilaterally and EAC's normal Throat: Yes posterior oropharynx normal and Yes tonsils normal Neck Neck: Yes no lymphadenopathy and Yes supple Thyroid: Thyroid normal Resp Auscultation: clear to auscultation bilaterally, no rales and no wheezes Cardio Rate: regular rate Rhythm: regular rhythm Heart sounds: no murmurs GI Palpation (GI): Soft to palpation and nontender Auscultation: normal bowel sounds General: Yes no CVA tenderness Back/Spine/Pelvis Back: no CVA tenderness Thoracic/Lumbar Spine: thoracic spinal tenderness (over the lower half of the thoracic spine) and lumbar spinal tenderness Skin Rashes: no rashes Extrem General: No clubbing, No cyanosis and Yes pedal edema (trace edema, bilateral) Right lower extremity: knee Details: tenderness Left lower extremity: hip/thigh Details: no tenderness and knee Details: tenderness Results Reviewed Results Reviewed: Laboratory Tests 06/30/23 06/30/23 07/22/23 14:25 14:30 Unknown WBC 6.7 Hgb 13.8 Hct 43.4 Plt Count 218 ESR 25 H Sodium 142 Potassium 4.4 D Creatinine 1.73 H Estimated GFR 30 Random Glucose 127 H Calcium 9.7 AST 11 ALT 9 C-Reactive Protein 0.60 H Total Protein 7.1 Total Protein (PEP) 6.8 Ur Specific [place] 1.010 Urine Protein 100 (2+) H Urine Glucose (UA) Negative Urine Blood Small (1+) H Urine Nitrite Negative Ur Leukocyte Esterase Negative U Random Total Protein 135 H Protein/Creatinin Ratio 2.19 H Assessment and Plan Assessment & Plan (1) Benign essential hypertension: Code(s): I10 - Essential (primary) hypertension Plan: Reinforced low sodium diet - goal is systolic BP of at least 120 to 130 mm or less, in light of her CKD Continue Losartan 50 mg QD (2) CKD (chronic kidney disease) stage 3, GFR 30-59 ml/min: Comment: 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, with minimal proteinuria Code(s): N18.30 - Chronic kidney disease, stage 3 unspecified Qualifiers: Chronic kidney disease stage 3 subtype: stage 3b (GFR 30-44) Qualified Code(s): N18.32 - Chronic kidney disease, stage 3b Plan: Her renal function appears to have stabilized again recently - results of her labs done in June 2023 reviewed and discussed with patient Reinforced complete avoidance of NSAIDs and she is encouraged again to increase her oral fluid intake Follow up with nephrology as scheduled - has appt scheduled later this afternoon Will recheck her labs in 3 months for follow up - she is advised to get these as well as her repeat cholesterol levels and TSH, done so these should be done fasting (3) Edema: Code(s): R60.9 - Edema, unspecified Qualifiers: Edema type: localized Qualified Code(s): R60.0 - Localized edema Plan: Mostly over both lower extremities - due to lymphedema Continue Furosemide 20 mg QD PRN - dose was lowered by nephrology from 40 mg a few months ago (4) Migraine: Code(s): G43.909 - Migraine, unspecified, not intractable, without status migrainosus Qualifiers: Migraine type: unspecified Status migrainosus presence: without status migrainosus Intractability: not intractable Qualified Code(s): G43.909 - Migraine, unspecified, not intractable, without status migrainosus Plan: Stable on prophylactic Tx with Topiramate 50 mg Q HS Reinforced avoidance of migraine triggers Continue Rizatriptan 10 mg PRN Follow up with neurology as scheduled (5) Asthma: Code(s): J45.909 - Unspecified asthma, uncomplicated Qualifiers: Asthma severity: moderate Asthma persistence: persistent Asthma complication type: uncomplicated Qualified Code(s): J45.40 - Moderate persistent asthma, uncomplicated Plan: Appears stable Continue Symbicort HFA 160-4.5 mcg 2 inhalations BID and Albuterol HFA 2 inhalations Q 6 hours PRN Follow up with [facility] as scheduled (6) Obstructive sleep apnea: Code(s): G47.33 - Obstructive sleep apnea (adult) (pediatric) Plan: Continue using her CPAP device when sleeping at night Follow up with Sleep Medicine as scheduled - she now goes to [facility] Medicine (7) Chronic idiopathic constipation: Code(s): K59.04 - Chronic idiopathic constipation Plan: Encouraged increased oral fluids and dietary fiber Continue Linzess 145 mcg QD and Senna 8.6 mg 2 tablets QD PRN Follow up with GI as scheduled (8) Roach's esophagus: Comment: LAST EGD 2018 DUE FOR REPEAT TO SURVEY 2020 OR 2021. AEB Code(s): K22.70 - Roach's esophagus without dysplasia Qualifiers: Roach's esophagus type: without dysplasia Qualified Code(s): K22.70 - Roach's esophagus without dysplasia Plan: Reinforced dietary restrictions Continue Famotidine 40 mg QD Follow up with GI as scheduled for continuing surveillance (9) Intertrigo: Code(s): L30.4 - Erythema intertrigo Plan: Continue Nystatin cream BID PRN - Rx refilled (10) Thoracic spondylosis: Code(s): M47.814 - Spondylosis without myelopathy or radiculopathy, thoracic region Plan: MRI of the thoracic spine done last year revealed mild thoracic kyphosis with slight lower thoracic dextrocurvature and multilevel DDD and spondylosis, with multilevel disc herniations and disc osteophyte complexes without spinal cord impingement or spinal canal stenosis Reinforced activity and weight-lifting restrictions Patient states that physical therapy has helped somewhat in the past and will refer her as needed (11) Elevated TSH: Code(s): R79.89 - Other specified abnormal findings of blood chemistry Plan: Her free T4 level was normal on her previous labs and patient remains clinically euthyroid Will continue to monitor her TFTs regularly - she had repeat labs ordered but did not get them done before her appt today (12) Urinary incontinence: Code(s): R32 - Unspecified urinary incontinence Qualifiers: Urinary Incontinence type: unspecified incontinence Qualified Code(s): R32 - Unspecified urinary incontinence Plan: Follow up with urology as scheduled (13) Obesity (BMI 30-39.9): Code(s): E66.9 - Obesity, unspecified Plan: Reinforced diet/exercise as tolerated/lose weight She was referred to weight management previously and was seen by bariatric surgery a few months ago but as she was more interested in medical weight management rather than surgical, was placed on a list for medical weight management States that she was seen a couple of months ago and was given some materials to read and go over to help her lose weight I have previously advised patient that with her compromised renal function, as meds like Ozempic and Wegovy are cleared or excreted renally, I would not really recommend these for her at this time She has since reached out to Dr. Galdamez's office in [place] for weight management (as she lives in [place]) and is now scheduled to be seen on 10/05/2023 - she is requesting for a referral from us for this (referral printed out and given to patient) Plan Follow up in 3 months Orders: Orders Complete Blood Count Auto Diff 3 Months D64.9 - Anemia, unspecified Vitamin D 25-OH Total 3 Months E55.9 - Vitamin D deficiency, unspecified Lipid Panel 3 Months E78.00 - Pure hypercholesterolemia, unspecified Comprehensive [place]. Panel Fast 3 Months E78.00 - Pure hypercholesterolemia, unspecified Hemoglobin A1c 3 Months R73.01 - Impaired fasting glucose TSH reflex Free T4 3 Months E78.00 - Pure hypercholesterolemia, unspecified UA CC w/rflx Micro + Cult 3 Months R30.0 - Dysuria Referrals Bariatric Surgery Referral E66.9 - Obesity, unspecified, N18.32 - Chronic kidney disease, stage 3b Breast Surgery Referral N64.4 - Mastodynia Medications: Changed From nystatin 1 appl topical BID To nystatin 1 appl topical BID PRN 30 grams 2RF rash Coding Level of Care Code Est Pt Level 4 (74279) Complex EM visit Add On G2211 Diagnoses Benign essential hypertension I10 Stage 3b chronic kidney disease N18.32 Chronic kidney disease stage 3 subtype: stage 3b (GFR 30-44) Localized edema R60.0 Edema type: localized Migraine without status migrainosus, not intractable, unspecified migraine type G43.909 Migraine type: unspecified Status migrainosus presence: without status migrainosus Intractability: not intractable Moderate persistent asthma without complication J45.40 Asthma severity: moderate Asthma persistence: persistent Asthma complication type: uncomplicated Obstructive sleep apnea G47.33 Chronic idiopathic constipation K59.04 Roach's esophagus without dysplasia K22.70 Roach's esophagus type: without dysplasia Intertrigo L30.4 Thoracic spondylosis M47.814 Elevated TSH R79.89 Urinary incontinence, unspecified type R32 Urinary Incontinence type: unspecified incontinence Obesity (BMI 30-39.9) E66.9
[2023-08-31 11:25] VITALS: BP 118/72; PULSE 59; O2SAT 95; BMI 39.0
== END 2023-08-31 12:13 | disposition home or self-care (01) ==
PROVIDERS: PCP Internal Medicine; Visit Provider Internal Medicine
DX: I12.9 Hypertensive chronic kidney disease with stage 1 through stage 4 chronic kidney disease, or unspecified chronic kidney disease (principal); N18.32 Chronic kidney disease, stage 3b; R60.0 Localized edema; G43.909 Migraine, unspecified, not intractable, without status migrainosus; J45.40 Moderate persistent asthma, uncomplicated; G47.33 Obstructive sleep apnea (adult) (pediatric); K59.04 Chronic idiopathic constipation; K22.70 Barrett's esophagus without dysplasia; L30.4 Erythema intertrigo; M47.814 Spondylosis without myelopathy or radiculopathy, thoracic region; R79.89 Other specified abnormal findings of blood chemistry; R32 Unspecified urinary incontinence
CPT/HCPCS: 99214; G2211

== ENCOUNTER 2023-09-02 09:14 | Outpatient (AMB) | payer OTHER, SELFPAY ==
[2023-09-02 09:18] VITALS: BP 148/88; PULSE 60; O2SAT 97; BMI 38.7
--- NOTE | 2023-09-02 09:18 | HO.NEPHOV ---
Vital Signs 09/02/23 09:18 Height 5 ft 1 in Weight 205 lb BMI 38.7 BP 148/88 H Blood Pressure Location Lt brachial Position Sitting Pulse 60 Pulse Source Pulse Oximeter Pulse Oximetry (%) 97 Oxygen Delivery Method Room Air Intake Visit Reasons: Follow up/ Confirmed Level Vial Inspector Required: No Accompanied by: Self / Same As Patient Allergies diphenhydramine [From Benadryl] Allergy (Severe, Verified 09/02/23 09:23) Angioedema hydromorphone [From Dilaudid] Allergy (Intermediate, Verified 09/02/23 09:23) Increased BP FRANK Inhibitors [FRANK INHIBITORS] Allergy (Unknown, Verified 09/02/23 09:23) PER H&P codeine Allergy (Unknown, Verified 09/02/23 09:23) Rash meperidine Allergy (Unknown, Verified 09/02/23 09:23) Rash morphine Allergy (Unknown, Verified 09/02/23 09:23) RASH, DIFF BREATHING,CHEST PRESSURE, throat swelling TAPE,PLASTIC Allergy (Unknown, Uncoded 08/31/23 12:12) Rash Medication List - Last Reconciled 09/02/23 by Mati Durbin MD [ADULT PULL UPS (medium) As directed - #60 / month (2 pull ups/day) with 12 refills] albuterol sulfate 90 mcg/actuation 2 puffs PO Q4H PRN amitriptyline 10 mg PO BEDTIME amlodipine 10 mg PO DAILY [BEDSIDE COMMODE As directed] [bladder pads As directed - #90/month (3 pads / day), with 12 refills] budesonide-formoterol 160-4.5 mcg/actuation 2 inhalations inhalation BID cholecalciferol (vitamin D3) 25 mcg PO DAILY [CPAP device As directed] dapagliflozin propanediol (Farxiga) 10 mg PO DAILY diclofenac sodium 1% (Arthritis Pain (diclofenac)) 2 grams topical QID PRN [foot pedal As directed] furosemide 20 mg PO DAILY [incontinence wipes As directed] lansoprazole 30 mg PO DAILY linaclotide (Linzess) 145 mcg PO QAM losartan 50 mg PO DAILY magnesium oxide 400 mg PO DAILY nystatin 1 appl topical BID PRN sennosides (Savanna-dean) 17.2 mg (2 x 8.6 mg) PO BEDTIME simethicone (Gas Relief Extra Strength) 125 mg PO QID PRN tizanidine 2 mg PO BID PRN topiramate 100 mg PO BID trospium ER 60 mg PO DAILY vibegron (Gemtesa) mg PO ONCE HPI Comments Details: Middle-aged woman with history of obesity and hypertension with proteinuria and CKD. She has biopsy-proven FSGS. Biopsy was done more than 15 years ago. Serum creatinine fluctuates between 1.5 minutes 1.8 mg/dL. Recently she was started on Farxiga by another developmental mathematics professor. She continues to experience knee pain. She also has history of constipation for which she is on Linzess. Today she has no shortness of breath. No nausea vomiting. No edema. No urinary symptoms. Recently she underwent ultrasound of the neck which showed multiple lymph nodes. Still with joint pains Cr is up to 1.8 and 2.1 gm proteinuria She underwent a repeat kidney biopsy. Official results are still pending. I spoke to the pathologist and she did have FSGS and electron microscopy is still pending. [facility] Medical History Urinary incontinence Breast calcification, right Chronic renal insufficiency Asthma Migraine Normal colonoscopy (~12/25/16) Obstructive sleep apnea Benign essential hypertension Diverticulitis Vitamin D deficiency Hypertension Surgical History History of biopsy History of facial surgery History of carpal tunnel repair History of nasal surgery History of ankle surgery (~2012) History of cryosurgery History of pubovaginal sling Hx of hernia repair History of bilateral tubal ligation Hx laparoscopic cholecystectomy (~2001) History of esophagogastroduodenoscopy Hx of colonoscopy Family History Mother High blood pressure Diabetes Arthritis Father Diabetes Kidney disease Heart disease Brother Diabetes Maternal Aunt Cancer of breast Brother Colon cancer, Onset Age: 57 Maternal Grandmother Cancer of breast Social History Household Members: None Housing: Apartment Alcohol intake: current Alcohol intake frequency: a few times a month Alcohol type: wine and hard liquor Patient Tobacco Use Status: Former Tobacco user Tobacco use type: Cigarette Years Smoked: 7 e-Cigarette/Vaping Use: Never Used Second Hand Smoke Exposure: No service: No Current occupational status: disabled Cognitive needs: No Hearing needs: No Vision needs: Yes Female Reproductive History Menstrual Age of Menarche: 13 Physical Exam Vital Signs: Last Vital Signs Pulse 60 09/02/23 09:18 BP 148/88 H 09/02/23 09:18 Pulse Ox 97 09/02/23 09:18 Oxygen Delivery Method Room Air 09/02/23 09:18 BMI result Body Mass Index 38.7 Results Reviewed Nephrology Results: Hgb 13.8 g/dl (12.0-16.0) 07/22/23 WBC 6.7 X10*3/uL (4.8-10.8) 07/22/23 Plt Count 218 X10*3/uL (160-400) 07/22/23 Sodium 142 mmol/L (135-145) 07/22/23 Potassium 4.4 mmol/L (3.3-5.1) 07/22/23 Chloride 111 mmol/L (96-108) H 07/22/23 Carbon Dioxide 26 mmol/L (22-29) 07/22/23 BUN 36 mg/dL (9-16) H 07/22/23 Creatinine 1.73 mg/dL (0.5-1.4) H 07/22/23 Calcium 9.7 mg/dL (8.4-10.2) 07/22/23 Urine Protein 100 (2+) mg/dL (Neg-Trace) H 06/30/23 Urine Creatinine 61.60 mg/dL 06/30/23 Protein/Creatinin Ratio 2.19 (<0.2) H 06/30/23 Assessment & Plan Assessment & Plan (1) Proteinuria: Code(s): R80.9 - Proteinuria, unspecified Category: Medical (2) CKD (chronic kidney disease) stage 3, GFR 30-59 ml/min: Comment: 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, with minimal proteinuria Code(s): N18.30 - Chronic kidney disease, stage 3 unspecified Category: Medical Qualifiers: Chronic kidney disease stage 3 subtype: stage 3b (GFR 30-44) Qualified Code(s): N18.32 - Chronic kidney disease, stage 3b Plan: 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 Creatinine fluctuates has gradually increased 1.8 Goal slow the portion disease. Maintain losartan for renal protection She is non nephrotic range proteinuria. Continue to avoid nephrotoxic agents including NSAIDs Repeat kidney biopsy revealed FSGS. Electron microscopy is pending. She has non nephrotic range proteinuria Given the history of obesity and non nephrotic range proteinuria I will not add prednisone or calcineurin inhibitors at this time. We will maximize angiotensin receptor blockade. -losartan increased to 100 mg. Continue with Farxiga. Discussed importance of weight loss. She should stay on a low-sodium diet (3) Hypertension: Code(s): I10 - Essential (primary) hypertension Category: Medical Plan: Blood pressure is better controlled Continue with losartan (4) Obesity (BMI 30-39.9): Code(s): E66.9 - Obesity, unspecified Category: Medical Plan: We had a lengthy discussion about weight loss The meantime encouraged her to increase physical activity and decreasing calorie intake Plan Other problems include cervical lymph nodes which require further workup Orders: Orders Basic Metabolic Panel 3 Weeks N18.32 - Chronic kidney disease, stage 3b Medications: Changed From losartan 50 mg PO DAILY To losartan 100 mg PO DAILY 90 tabs 0RF Coding Level of Care Code Est Pt Level 4 (99542) Diagnoses Proteinuria R80.9 Stage 3b chronic kidney disease N18.32 Chronic kidney disease stage 3 subtype: stage 3b (GFR 30-44) Hypertension I10 Obesity (BMI 30-39.9) E66.9
== END 2023-09-02 09:41 | disposition home or self-care (01) ==
PROVIDERS: PCP Internal Medicine; Visit Provider Internal Medicine Hypertension Specialist
DX: R80.9 Proteinuria, unspecified (principal); N18.32 Chronic kidney disease, stage 3b; I10 Essential (primary) hypertension; E66.9 Obesity, unspecified
CPT/HCPCS: 99214

== ENCOUNTER → 2023-09-02 09:14 | Outpatient (BNVA) | payer OTHER, SELFPAY | PROVIDERS: PCP Internal Medicine; Visit Provider Internal Medicine Hypertension Specialist | DX: I12.9 Hypertensive chronic kidney disease with stage 1 through stage 4 chronic kidney disease, or unspecified chronic kidney disease (principal); N18.32 Chronic kidney disease, stage 3b; R80.9 Proteinuria, unspecified; E66.9 Obesity, unspecified; Z68.38 Body mass index [BMI] 38.0-38.9, adult | CPT/HCPCS: 99212 ==

== ENCOUNTER 2023-09-09 10:30 | Outpatient (AMB) | payer OTHER, SELFPAY ==
--- NOTE | 2023-09-09 10:39 | MHC.OFFVIS ---
Vital Signs 09/09/23 10:52 Height 5 ft 1 in Weight 201 lb 15.095 oz BMI 38.2 BP 145/94 H Blood Pressure Location Rt brachial Position Sitting Pulse 62 Intake Visit Reasons: Follow up medications Intake Note: Patient presents in follow up of abdominal bloating and constipation. CC: Patient c/o abdominal bloating. Denies having any new GI symptoms today. Print Operator Required: Yes Accompanied by: Self / Same As Patient Allergies diphenhydramine [From Benadryl] Allergy (Severe, Verified 09/09/23 10:58) Angioedema hydromorphone [From Dilaudid] Allergy (Intermediate, Verified 09/09/23 10:58) Increased BP FRANK Inhibitors [FRANK INHIBITORS] Allergy (Unknown, Verified 09/09/23 10:58) PER H&P codeine Allergy (Unknown, Verified 09/09/23 10:58) Rash meperidine Allergy (Unknown, Verified 09/09/23 10:58) Rash morphine Allergy (Unknown, Verified 09/09/23 10:58) RASH, DIFF BREATHING,CHEST PRESSURE, throat swelling TAPE,PLASTIC Allergy (Unknown, Uncoded 08/31/23 12:12) Rash HPI HPI Follow up medications: Details: Assessment & Plan (1) Family history of colonic polyps: Comment: 2022 scope= hyperplastic polyps repeat 5 years r/t FHX polyps :2017 scope =normal, Code(s): Z83.71 - Family history of colonic polyps Plan: The procedure needs to be repeated in 5 years r/t the FHX of polyps despite the pts polyps being hyperplastic. The procedure was well tolerated. The results were explained and the patient is agreeable to the follow-up interval as stated. The bowel pattern has returned to normal. Education was provided to tell any 1st degree relatives about their findings to be sure that they are screened by age 45. Educated that they will be put on a recall list when it is time for their repeat scope but should they move out of state or away from the hospital they will need to remember along with their primary to repeat the procedure in a timely fashion to avoid any adverse complications. She continues to do well on her Linzess 145 micro g, senna, famotidine and simethicone with good control of her constipation and GERD. She says she stopped taking omeprazole r/t renal concerns - which is why I tried to put her on famotidine. I encouraged her to also discuss this with her renal provider/pyrometallurgical engineer. Will try putting her on lansoprazole because this is not processed is much through the renal system and hopefully this will help her not to read developed her Barretts esophagus which is a clear risk for esophageal cancer. Return office visit in 6 months (2) GERD (gastroesophageal reflux disease): Comment: Stage 3CKD trying to get lansoprazole to accommodate this. She had a metallic side effect from famotidine/H2 medications Code(s): K21.9 - Gastro-esophageal reflux disease without esophagitis (3) Roach's esophagus: Comment: LAST EGD 2018 DUE FOR REPEAT TO SURVEY 2020 OR 2021. AEB Code(s): K22.70 - Roach's esophagus without dysplasia Qualifiers: Roach's esophagus type: without dysplasia Qualified Code(s): K22.70 - Roach's esophagus without dysplasia Medications: New lansoprazole 30 mg PO DAILY 30 caps 6RF K21.9 - Gastro-esophageal reflux disease without esophagitis Discontinued omeprazole Discontinued Reason: Doctor's Order 40 mg PO DAILY 30 days 30 caps 3R . TODAY'S nVISIT She continues to do well on her Linzess 145 micro g, senna, famotidine and simethicone. She has not been taking the lansoprazole because SSBE is not there she no longer needs it. This is very wrong, I put her on it because of her renal disease. I educate her that in order to prevent esophageal cancer someone who has Barretts esophagus likely needs lifelong acid reduction therapy. She is having lower abd bloating, but she also has been out of her linzess. She also id going through menopause and had her menses after not having any for 1 year. She is considering bariatric surgery. ROV 6 mos. [facility], [facility] Medical History (Updated 09/09/23 @ 14:20 by JOSEPH Packer) Family history of colonic polyps Left-sided low back pain with sciatica Benign essential hypertension Mid back pain on right side Edema Left hip pain Back pain Abdominal cramping Right lateral abdominal pain Right flank pain Pre-op examination Annual physical exam LEANNA treated with BiPAP RLQ abdominal tenderness Right flank pain Left elbow pain Left shoulder pain Urinary incontinence Breast calcification, right Chronic renal insufficiency Asthma Migraine Normal colonoscopy (~12/25/16) Obstructive sleep apnea Diverticulitis Vitamin D deficiency Hypertension Surgical History History of biopsy History of facial surgery History of carpal tunnel repair History of nasal surgery History of ankle surgery (~2012) History of cryosurgery History of pubovaginal sling Hx of hernia repair History of bilateral tubal ligation Hx laparoscopic cholecystectomy (~2001) History of esophagogastroduodenoscopy Hx of colonoscopy Family History Mother High blood pressure Diabetes Arthritis Father Diabetes Kidney disease Heart disease Brother Diabetes Maternal Aunt Cancer of breast Brother Colon cancer, Onset Age: 57 Maternal Grandmother Cancer of breast Social History Household Members: None Housing: Apartment Alcohol intake: current Alcohol intake frequency: a few times a month Alcohol type: wine and hard liquor Patient Tobacco Use Status: Former Tobacco user Tobacco use type: Cigarette Years Smoked: 7 e-Cigarette/Vaping Use: Never Used Second Hand Smoke Exposure: No service: No Current occupational status: disabled Cognitive needs: No Hearing needs: No Vision needs: Yes Female Reproductive History Menstrual Age of Menarche: 13 Review of Systems Const Denies fatigue, Denies fever(s), Denies night sweats, Denies poor appetite and Denies weight loss ENT Reports Normal hearing present, Denies dental pain, Denies dysphagia, Denies hearing loss, Denies mouth pain, Denies odynophagia, Denies throat swelling, Denies tongue swelling and Reports other (Dentition adequate) Card Reports no additional complaints Resp Reports no additional complaints GI Details: Denies abdominal pain, Denies melena, Reports bloating, Denies hematochezia, Reports constipation, Denies GI cramping, Denies dysphagia, Denies excessive flatus, Denies early satiety, Reports heartburn, Denies diarrhea, Denies nausea, Denies odynophagia, Denies vomiting and Denies hematemesis Musc Reports back pain, Reports arthralgias, Reports radiating pain into limb and Reports stiffness Skin/Breast Denies pruritus, Denies lesions, Denies rash and Denies jaundice Neuro Reports Normal hearing present and Denies Abnormal speech present Endo Denies fatigue Aller/Immun Denies throat swelling and Denies tongue swelling Physical Exam Vital Signs: Last Vital Signs Pulse 62 09/09/23 10:52 BP 145/94 H 09/09/23 10:52 BMI result Body Mass Index 38.2 Const General: cooperative, no acute distress, well developed and well groomed Nutritional Appearance: well nourished and obese Orientation/consciousness: oriented to person, oriented to place and oriented to time Limitations: No language barrier HEENT Head: Yes normocephalic and Yes atraumatic Eyes General: appearance normal, both eyes and all related structures Pupils: Equal, round and reactive pupils present Neck Neck: Yes normal visual inspection and Yes no lymphadenopathy Thyroid: Thyroid normal Resp Effort & Inspection: normal respiratory effort and able to speak in complete sentences Auscultation: clear to auscultation bilaterally Cardio Rate: regular rate Rhythm: regular rhythm Heart sounds: Normal, physiologic split S2 sound present Peripheral pulses: radial pulses present and posterior tibial pulses present GI Inspection: No distended, Yes Abdominal panniculus present and Yes obesity Palpation (GI): Soft to palpation, nontender, no guarding, not rigid and No hepatosplenomegaly present Percussion: Yes normal to percussion Auscultation: normal bowel sounds Rectal Exam - Female: deferred Skin General skin exam: no rashes or lesions noted, turgor normal, skin not dry, no jaundice, No spider nevi and no striae Rashes: no rashes Nails: normal Neuro General: oriented to person, oriented to place and oriented to time Cranial nerves: Yes Equal, round and reactive pupils present and Yes Normal hearing present Speech: No Abnormal speech present Extrem General: Yes normal to inspection, No clubbing, No cyanosis and No edema Psych Appearance: grossly normal and well kempt Mental Status: mental status grossly normal Speech and movement: Normal speech and movement present Affect: normal affect Attitude: cooperative Thought process: Normal thought process present and not confabulating Thought content: Normal thought content present Insight: Limited insight present (Psych) Judgement: Limited judgement present (Psych) Assessment & Plan Assessment & Plan (1) GERD (gastroesophageal reflux disease): Comment: Stage 3CKD trying to get lansoprazole to accommodate this. She had a metallic side effect from famotidine/H2 medications Code(s): K21.9 - Gastro-esophageal reflux disease without esophagitis Category: Medical (2) Roach's esophagus: Comment: LAST EGD 2018 DUE FOR REPEAT TO SURVEY 2020 OR 2021. AEB Code(s): K22.70 - Roach's esophagus without dysplasia Category: Medical Qualifiers: Roach's esophagus type: without dysplasia Qualified Code(s): K22.70 - Roach's esophagus without dysplasia (3) Chronic idiopathic constipation: Code(s): K59.04 - Chronic idiopathic constipation Category: Medical (4) Abdominal bloating: Code(s): R14.0 - Abdominal distension (gaseous) Category: Medical Plan She continues to do well on her Linzess 145 micro g, senna, famotidine and simethicone. She has not been taking the lansoprazole because SSBE is not there she no longer needs it. This is very wrong, I put her on it because of her renal disease. I educate her that in order to prevent esophageal cancer someone who has Barretts esophagus likely needs lifelong acid reduction therapy. She is having lower abd bloating, but she also has been out of her linzess. She also id going through menopause and had her menses after not having any for 1 year. She is considering bariatric surgery. ROV 6 mos. Medications: Refilled lansoprazole 30 mg PO DAILY 30 caps 6RF K21.9 - Gastro-esophageal reflux disease without esophagitis sennosides (Savanna-dean) 17.2 mg (2 x 8.6 mg) PO BEDTIME 60 tabs 6RF K59.04 - Chronic idiopathic constipation linaclotide (Linzess) 145 mcg PO QAM 30 caps 6RF K59.04 - Chronic idiopathic constipation simethicone (Gas Relief Extra Strength) 125 mg PO QID PRN 120 tabs 6RF for abdominal pain Coding Level of Care Code Est Pt Level 3 (72641) Diagnoses GERD (gastroesophageal reflux disease) K21.9 Roach's esophagus without dysplasia K22.70 Roach's esophagus type: without dysplasia Chronic idiopathic constipation K59.04 Abdominal bloating R14.0
[2023-09-09 10:52] VITALS: BP 145/94; PULSE 62; BMI 38.2
== END 2023-09-09 11:23 | disposition home or self-care (01) ==
LOC: HO.HGI 10:30
PROVIDERS: PCP Internal Medicine; Visit Provider Nurse Practitioner
DX: K21.9 Gastro-esophageal reflux disease without esophagitis (principal); K22.70 Barrett's esophagus without dysplasia; K59.04 Chronic idiopathic constipation; R14.0 Abdominal distension (gaseous)
CPT/HCPCS: 99213

== ENCOUNTER → 2023-09-09 10:30 | Outpatient (BNVA) | payer OTHER, SELFPAY | PROVIDERS: PCP Internal Medicine; Visit Provider Nurse Practitioner | DX: R14.0 Abdominal distension (gaseous) (principal); K59.04 Chronic idiopathic constipation; K21.9 Gastro-esophageal reflux disease without esophagitis; K22.70 Barrett's esophagus without dysplasia; Z83.719 Family history of colon polyps, unspecified | CPT/HCPCS: 99212 ==

== ENCOUNTER 2023-09-10 14:51 | Outpatient (AMB) | payer OTHER, SELFPAY ==
--- NOTE | 2023-09-10 14:54 | A.OFFVIS_ITS ---
Vital Signs 09/10/23 15:05 Height 5 ft 1 in Weight 203 lb BMI 38.4 BP 179/88 H Blood Pressure Location Lt brachial Position Sitting Pulse 81 Intake Visit Reasons: Mastodynia Intake Note: Patient is seen in office for evaluation and treatment of mastodynia. Pt c/o: breast pain constant for 2 wks, once her menstrual period came on 09/06/23 her pain went away, had left breast calcification about a year ago Scaler Required: No Branch Operations Coordinator: Branch Operations Coordinator Present Accompanied by: Self / Same As Patient Allergies diphenhydramine [From Benadryl] Allergy (Severe, Verified 09/10/23 15:03) Angioedema hydromorphone [From Dilaudid] Allergy (Intermediate, Verified 09/10/23 15:03) Increased BP FRANK Inhibitors [FRANK INHIBITORS] Allergy (Unknown, Verified 09/10/23 15:03) PER H&P codeine Allergy (Unknown, Verified 09/10/23 15:03) Rash meperidine Allergy (Unknown, Verified 09/10/23 15:03) Rash morphine Allergy (Unknown, Verified 09/10/23 15:03) RASH, DIFF BREATHING,CHEST PRESSURE, throat swelling TAPE,PLASTIC Allergy (Unknown, Uncoded 09/10/23 15:03) Rash Medication List - Last Reconciled 09/10/23 by Yann Blum MD [ADULT PULL UPS (medium) As directed - #60 / month (2 pull ups/day) with 12 refills] albuterol sulfate 90 mcg/actuation 2 puffs PO Q4H PRN amitriptyline 10 mg PO BEDTIME amlodipine 10 mg PO DAILY [BEDSIDE COMMODE As directed] [bladder pads As directed - #90/month (3 pads / day), with 12 refills] budesonide-formoterol 160-4.5 mcg/actuation 2 inhalations inhalation BID cholecalciferol (vitamin D3) 25 mcg PO DAILY [CPAP device As directed] dapagliflozin propanediol (Farxiga) 10 mg PO DAILY diclofenac sodium 1% (Arthritis Pain (diclofenac)) 2 grams topical QID PRN [foot pedal As directed] furosemide 20 mg PO DAILY [incontinence wipes As directed] lansoprazole 30 mg PO DAILY linaclotide (Linzess) 145 mcg PO QAM losartan 100 mg PO DAILY magnesium oxide 400 mg PO DAILY nystatin 1 appl topical BID PRN rizatriptan 10 mg PO Q2-4H PRN sennosides (Savanna-dean) 17.2 mg (2 x 8.6 mg) PO BEDTIME simethicone (Gas Relief Extra Strength) 125 mg PO QID PRN tizanidine 2 mg PO BID PRN topiramate 100 mg PO BID trospium ER 60 mg PO DAILY vibegron (Gemtesa) mg PO ONCE HPI Comments Details: 58-year-old perimenopausal female patient presenting with complaints of bilateral breast pain felt in the area of the nipples. This occurred over a 2 weeks but when she had her menstrual cycle, the breast pain subsided. Her last cycle was at least 1 year ago. She currently denies any pain in either breast, and denies any palpable masses. She did have a previous history of breast biopsies for calcifications. Her most recent mammogram dated 04/09/2023 revealed no findings suspicious for malignancy in either breast. Several residual probably benign grouped calcifications on the right side located centrally felt to be similar to the previously biopsied calcifications were felt to be probably benign. A six-month follow-up mammogram was recommended to ensure no aggressive changes (BI-RADS 3). She has scheduled for a right breast mammogram on 10/14/2023. [facility] Medical History Family history of colonic polyps Left-sided low back pain with sciatica Benign essential hypertension Mid back pain on right side Edema Left hip pain Back pain Abdominal cramping Right lateral abdominal pain Right flank pain Pre-op examination Annual physical exam LEANNA treated with BiPAP RLQ abdominal tenderness Right flank pain Left elbow pain Left shoulder pain Urinary incontinence Breast calcification, right Chronic renal insufficiency Asthma Migraine Normal colonoscopy (~12/25/16) Obstructive sleep apnea Diverticulitis Vitamin D deficiency Hypertension Surgical History History of biopsy History of facial surgery History of carpal tunnel repair History of nasal surgery History of ankle surgery (~2012) History of cryosurgery History of pubovaginal sling Hx of hernia repair History of bilateral tubal ligation Hx laparoscopic cholecystectomy (~2001) History of esophagogastroduodenoscopy Hx of colonoscopy Family History Mother High blood pressure Diabetes Arthritis Father Diabetes Kidney disease Heart disease Brother Diabetes Maternal Aunt Cancer of breast Brother Colon cancer, Onset Age: 57 Maternal Grandmother Cancer of breast Social History Household Members: None Housing: Apartment Alcohol intake: current Alcohol intake frequency: a few times a month Alcohol type: wine and hard liquor Patient Tobacco Use Status: Former Tobacco user Tobacco use type: Cigarette Years Smoked: 7 e-Cigarette/Vaping Use: Never Used Second Hand Smoke Exposure: No service: No Current occupational status: disabled Cognitive needs: No Hearing needs: No Vision needs: Yes Female Reproductive History Menstrual Age of Menarche: 13 Date of last menstrual period: 09/04/23 Date of Mammogram: 04/16/23 Review of Systems Const All systems reviewed & are unremarkable except as noted in HPI and below Denies chills, Denies fever(s), Denies headache(s), Denies poor appetite and Denies weakness ENT Denies headache(s) Card Denies chest pain, Denies irregular heart rhythm, Denies palpitations and Denies dyspnea Resp Denies cough, Denies excessive phlegm production and Denies dyspnea GI Denies abdominal pain, Denies bloating, Denies change in bowel habits, Denies constipation, Denies heartburn, Denies diarrhea, Denies nausea and Denies vomiting Denies urinary frequency Musc Denies back pain, Denies muscle weakness and Denies numbness Skin/Breast Denies changing lesions and Denies unusual bruising Neuro Denies headache(s), Denies numbness, Denies paresthesias and Denies weakness Psych Denies anxiety and Denies depression Endo Denies palpitations Leland/Lymph Denies lymphadenopathy Physical Exam Vital Signs: Last Vital Signs Pulse 81 09/10/23 15:05 BP 179/88 H 09/10/23 15:05 BMI result Body Mass Index 38.4 Const General: cooperative and no acute distress Nutritional Appearance: well nourished Orientation/consciousness: patient oriented x3 Limitations: no limitations HEENT Head: Yes normocephalic and Yes atraumatic Ears: hearing grossly normal bilaterally Chest Other: Left breast: No skin change, no nipple retraction, no nipple discharge, no palpable mass, no enlarged lymph nodes. Right breast: No skin change, no nipple retraction, no nipple discharge, no palpable mass, no enlarged lymph nodes Resp Effort & Inspection: normal respiratory effort, no audible wheezes, no cough and no respiratory distress Cardio Jugular venous distension: no JVD GI Inspection: Yes normal to inspection Skin Other: Warm, dry, no rash Neuro General: patient oriented x3 Extrem General: Yes no clubbing, cyanosis or edema Assessment & Plan Assessment & Plan (1) Pain of both breasts: Code(s): N64.4 - Mastodynia Category: Medical Plan 58-year-old female patient with a previous history of bilateral breast pain which subsequently resolved after having a long delayed menstrual cycle presenting for breast examination. Her most recent mammogram revealed low suspicion for findings in the right breast and a follow-up mammogram on 10/14/2023 is recommended. Examination today revealed no suspicious findings in either breast. I recommended she continue monthly self examinations with follow-up at our office as needed. Coding Level of Care Code New Pt Level 4 (43071) Diagnoses Pain of both breasts N64.4
[2023-09-10 15:05] VITALS: BP 179/88; PULSE 81; BMI 38.4
== END 2023-09-10 15:14 | disposition home or self-care (01) ==
PROVIDERS: PCP Internal Medicine; Referring Provider Internal Medicine; Visit Provider Surgery
DX: N64.4 Mastodynia (principal)
CPT/HCPCS: 99203

== ENCOUNTER → 2023-09-10 14:51 | Outpatient (BNVA) | payer OTHER, SELFPAY | PROVIDERS: PCP Internal Medicine; Referring Provider Internal Medicine; Visit Provider Surgery | DX: N64.4 Mastodynia (principal) | CPT/HCPCS: 99202 ==

== ENCOUNTER 2023-09-11 11:31 | Outpatient (AMB) | payer OTHER, SELFPAY ==
--- NOTE | 2023-09-11 11:39 | MHC.OFFVIS ---
Vital Signs 09/11/23 11:41 Height 5 ft 1 in Weight 203 lb BMI 38.4 Intake Visit Reasons: Bilateral primary osteoarthritis of knee Allergies diphenhydramine [From Benadryl] Allergy (Severe, Verified 09/11/23 11:40) Angioedema hydromorphone [From Dilaudid] Allergy (Intermediate, Verified 09/11/23 11:40) Increased BP RFANK Inhibitors [FRANK INHIBITORS] Allergy (Unknown, Verified 09/11/23 11:40) PER H&P codeine Allergy (Unknown, Verified 09/11/23 11:40) Rash meperidine Allergy (Unknown, Verified 09/11/23 11:40) Rash morphine Allergy (Unknown, Verified 09/11/23 11:40) RASH, DIFF BREATHING,CHEST PRESSURE, throat swelling TAPE,PLASTIC Allergy (Unknown, Uncoded 09/11/23 11:40) Rash HPI HPI Bilateral primary osteoarthritis of knee: Details: Roxie is a 58 year old female who presents today as a new patient with complaints of bilateral knee pain . Patient reports that she has had no previous treatment for her ongoing pain. She takes tylenol occasionally, but is limited to what she can take due to damaged kidneys. She also uses topical creams. Her ambulatory capacity is mildly limited. Overall she complains of pain mostly in the medial aspect of bilateral knees. She states his long as she does not overdo it the pain is tolerable. She has had no injections. She can take NSAIDs. She has polyarthralgia. [facility] Medical History Family history of colonic polyps Left-sided low back pain with sciatica Benign essential hypertension Mid back pain on right side Edema Left hip pain Back pain Abdominal cramping Right lateral abdominal pain Right flank pain Pre-op examination Annual physical exam LEANNA treated with BiPAP RLQ abdominal tenderness Right flank pain Left elbow pain Left shoulder pain Urinary incontinence Breast calcification, right Chronic renal insufficiency Asthma Migraine Normal colonoscopy (~12/25/16) Obstructive sleep apnea Diverticulitis Vitamin D deficiency Hypertension Surgical History History of biopsy History of facial surgery History of carpal tunnel repair History of nasal surgery History of ankle surgery (~2012) History of cryosurgery History of pubovaginal sling Hx of hernia repair History of bilateral tubal ligation Hx laparoscopic cholecystectomy (~2001) History of esophagogastroduodenoscopy Hx of colonoscopy Family History Mother High blood pressure Diabetes Arthritis Father Diabetes Kidney disease Heart disease Brother Diabetes Maternal Aunt Cancer of breast Brother Colon cancer, Onset Age: 57 Maternal Grandmother Cancer of breast Social History Household Members: None Housing: Apartment Alcohol intake: current Alcohol intake frequency: a few times a month Alcohol type: wine and hard liquor Patient Tobacco Use Status: Former Tobacco user Tobacco use type: Cigarette Years Smoked: 7 e-Cigarette/Vaping Use: Never Used Second Hand Smoke Exposure: No service: No Current occupational status: disabled Cognitive needs: No Hearing needs: No Vision needs: Yes Female Reproductive History Menstrual Age of Menarche: 13 Physical Exam Vital Signs: BMI result Body Mass Index 38.4 Const General: cooperative, healthy appearing, no acute distress, well developed and alert HEENT Head: Yes normal to inspection, Yes normocephalic and Yes atraumatic Mouth: moist mucous membranes Eyes General: appearance normal, both eyes and all related structures EOM: EOMs intact bilaterally Chest Other: no audible wheezing. Resp Other: No audible wheezing Effort & Inspection: normal respiratory effort Cardio Other: Radial pulse palpable with no rythmic abnormalities Back/Spine/Pelvis Cervical Spine: normal cervical lordosis Skin General skin exam: no rashes or lesions noted Neuro General: no focal motor deficits Extrem Other: Prominent soft tissues over bilateral knees with 0-120 degrees of motion limited by body habitus. There is tenderness to palpation in the medial compartment bilaterally and lateral retropatellar facet tenderness to palpation with mild bilateral knee effusions. Psych Appearance: grossly normal and well kempt Mental Status: mental status grossly normal Speech and movement: Normal speech and movement present Affect: normal affect Attitude: cooperative Assessment & Plan Assessment & Plan (1) Bilateral primary osteoarthritis of knee: Code(s): M17.0 - Bilateral primary osteoarthritis of knee Category: Medical Plan: This is a very pleasant 58-year-old woman referred from Rheumatology for bilateral knee osteoarthritis. She certainly does have osteoarthritis although radiographically it is [id number]. I discussed this with her. Treatment options include injections and physical therapy and weight loss. She is pursuing weight loss with the bariatric physicians here and I recommend she continue to do that. We discussed physical therapy and injections. At this point we are going to focus on weight loss 1st. She can return to see me should she change her mind. Coding Level of Care Code New Pt Level 3 (41186) Diagnoses Bilateral primary osteoarthritis of knee M17.0
[2023-09-11 11:41] VITALS: BMI 38.4
== END 2023-09-11 13:24 | disposition home or self-care (01) ==
PROVIDERS: PCP Internal Medicine; Visit Provider Orthopaedic Surgery
DX: M17.0 Bilateral primary osteoarthritis of knee (principal)
CPT/HCPCS: 99203

== ENCOUNTER → 2023-09-11 11:31 | Outpatient (BNVA) | payer OTHER, SELFPAY | PROVIDERS: PCP Internal Medicine; Visit Provider Orthopaedic Surgery | DX: M17.0 Bilateral primary osteoarthritis of knee (principal) | CPT/HCPCS: 99202 ==

== ENCOUNTER 2023-10-06 09:06 | Outpatient (REF) | payer OTHER, SELFPAY ==
[2023-10-06 18:06] LABS: Anion Gap 12 (12-20); Blood Urea Nitrogen 29 mg/dL (9-16); Calcium 9.6 mg/dL (8.4-10.2); Carbon Dioxide 28 mmol/L (22-29); Chloride 107 mmol/L (96-108); Estimated Glomerular Filt Rate 28; Glucose Random 106 mg/dL (60-115); Sodium 142 mmol/L (135-145)
== END 2023-10-06 09:07 | disposition home or self-care (01) ==
LOC: HO.HKASLDS 09:06
PROVIDERS: Visit Provider Internal Medicine Hypertension Specialist
DX: N18.32 Chronic kidney disease, stage 3b (principal)
CPT/HCPCS: 36415; 80048

== ENCOUNTER 2023-10-07 08:43 | Outpatient (AMB) | payer OTHER, SELFPAY ==
[2023-10-07 08:44] VITALS: BP 128/84; PULSE 49; O2SAT 94; BMI 38.7
--- NOTE | 2023-10-07 08:44 | HO.NEPHOV_ITS ---
Vital Signs 10/07/23 08:44 Height 5 ft 1 in Weight 205 lb BMI 38.7 BP 128/84 Blood Pressure Location Lt brachial Position Sitting Pulse 49 L Pulse Source Pulse Oximeter Pulse Oximetry (%) 94 Oxygen Delivery Method Room Air Intake Visit Reasons: Follow up/ Conf Accompanied by: Self / Same As Patient Allergies diphenhydramine [From Benadryl] Allergy (Severe, Verified 10/07/23 08:45) Angioedema hydromorphone [From Dilaudid] Allergy (Intermediate, Verified 10/07/23 08:45) Increased BP FRANK Inhibitors [FRANK INHIBITORS] Allergy (Unknown, Verified 10/07/23 08:45) PER H&P codeine Allergy (Unknown, Verified 10/07/23 08:45) Rash meperidine Allergy (Unknown, Verified 10/07/23 08:45) Rash morphine Allergy (Unknown, Verified 10/07/23 08:45) RASH, DIFF BREATHING,CHEST PRESSURE, throat swelling TAPE,PLASTIC Allergy (Unknown, Uncoded 09/11/23 11:40) Rash HPI Comments Details: Middle-aged woman with history of obesity and hypertension with proteinuria and CKD. She has biopsy-proven FSGS. Biopsy was done more than 15 years ago. Serum creatinine fluctuates between 1.5 minutes 1.8 mg/dL. Recently she was started on Farxiga by another order control clerk blood bank. She continues to experience knee pain. She also has history of constipation for which she is on Linzess. Today she has no shortness of breath. No nausea vomiting. No edema. No urinary symptoms. Recently she underwent ultrasound of the neck which showed multiple lymph nodes. Still with joint pains Cr is up to 1.8 and 2.1 gm proteinuria She underwent a repeat kidney biopsy. Official results are still pending. I spoke to the pathologist and she did have FSGS and electron microscopy is still pending. [facility] Medical History Family history of colonic polyps Left-sided low back pain with sciatica Benign essential hypertension Mid back pain on right side Edema Left hip pain Back pain Abdominal cramping Right lateral abdominal pain Right flank pain Pre-op examination Annual physical exam LEANNA treated with BiPAP RLQ abdominal tenderness Right flank pain Left elbow pain Left shoulder pain Urinary incontinence Breast calcification, right Chronic renal insufficiency Asthma Migraine Normal colonoscopy (~12/25/16) Obstructive sleep apnea Diverticulitis Vitamin D deficiency Hypertension Surgical History History of biopsy History of facial surgery History of carpal tunnel repair History of nasal surgery History of ankle surgery (~2012) History of cryosurgery History of pubovaginal sling Hx of hernia repair History of bilateral tubal ligation Hx laparoscopic cholecystectomy (~2001) History of esophagogastroduodenoscopy Hx of colonoscopy Family History Mother High blood pressure Diabetes Arthritis Father Diabetes Kidney disease Heart disease Brother Diabetes Maternal Aunt Cancer of breast Brother Colon cancer, Onset Age: 57 Maternal Grandmother Cancer of breast Social History Household Members: None Housing: Apartment Alcohol intake: current Alcohol intake frequency: a few times a month Alcohol type: wine and hard liquor Patient Tobacco Use Status: Former Tobacco user Tobacco use type: Cigarette Years Smoked: 7 e-Cigarette/Vaping Use: Never Used Second Hand Smoke Exposure: No service: No Current occupational status: disabled Cognitive needs: No Hearing needs: No Vision needs: Yes Female Reproductive History Menstrual Age of Menarche: 13 Physical Exam Vital Signs: Last Vital Signs Pulse 49 L 10/07/23 08:44 BP 128/84 10/07/23 08:44 Pulse Ox 94 10/07/23 08:44 Oxygen Delivery Method Room Air 10/07/23 08:44 BMI result Body Mass Index 38.7 Const General: comfortable Nutritional Appearance: well nourished Orientation/consciousness: patient oriented x3 HEENT Head: No normal to inspection Mouth: moist mucous membranes Neck Neck: Yes supple and Yes no JVD Resp Auscultation: clear to auscultation bilaterally, no rales and rub present Cardio Jugular venous distension: no JVD Palpation: no palpable S3 and no palpable S4 Heart sounds: no rubs GI Palpation (GI): Soft to palpation and nontender Percussion: No Fluid wave present General: Yes no CVA tenderness Back/Spine/Pelvis Back: no CVA tenderness Skin General skin exam: no rashes or lesions noted Neuro General: patient oriented x3 Extrem General: Yes no pedal edema and No clubbing Results Reviewed Nephrology Results: Sodium 142 mmol/L (135-145) 10/06/23 Potassium 5.0 mmol/L (3.3-5.1) 10/06/23 Chloride 107 mmol/L (96-108) 10/06/23 Carbon Dioxide 28 mmol/L (22-29) 10/06/23 BUN 29 mg/dL (9-16) H 10/06/23 Creatinine 1.87 mg/dL (0.5-1.4) H 10/06/23 Calcium 9.6 mg/dL (8.4-10.2) 10/06/23 Assessment & Plan Assessment & Plan (1) Proteinuria: Code(s): R80.9 - Proteinuria, unspecified Category: Medical (2) CKD (chronic kidney disease) stage 3, GFR 30-59 ml/min: Comment: 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, with minimal proteinuria Code(s): N18.30 - Chronic kidney disease, stage 3 unspecified Category: Medical Qualifiers: Chronic kidney disease stage 3 subtype: stage 3b (GFR 30-44) Qualified Code(s): N18.32 - Chronic kidney disease, stage 3b Plan: 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 Creatinine fluctuates has gradually increased 1.8 - Remains unchanged Goal slow the portion disease. Maintain losartan for renal protection She is non nephrotic range proteinuria. Continue to avoid nephrotoxic agents including NSAIDs Repeat kidney biopsy revealed FSGS. Electron microscopy is pending. She has non nephrotic range proteinuria Given the history of obesity and non nephrotic range proteinuria I will not add prednisone or calcineurin inhibitors at this time. We will maximize angiotensin receptor blockade. -Keep losartan 100 mg. Continue with Farxiga. Discussed importance of weight loss. She should stay on a low-sodium diet (3) Hypertension: Code(s): I10 - Essential (primary) hypertension Category: Medical Plan: Blood pressure is better controlled Continue with losartan (4) Obesity (BMI 30-39.9): Code(s): E66.9 - Obesity, unspecified Category: Medical Plan: We had a lengthy discussion about weight loss The meantime encouraged her to increase physical activity and decreasing calorie intake Plan Other problems include cervical lymph nodes which require further workup Orders: Orders Total Protein Urine Random 3 Months N18.32 - Chronic kidney disease, stage 3b UA and rflx microscopic 3 Months N18.32 - Chronic kidney disease, stage 3b Creatinine Urine 3 Months N18.32 - Chronic kidney disease, stage 3b Comprehensive Met. Panel 3 Months N18.32 - Chronic kidney disease, stage 3b Coding Level of Care Code Est Pt Level 4 (98963) Diagnoses Proteinuria R80.9 Stage 3b chronic kidney disease N18.32 Chronic kidney disease stage 3 subtype: stage 3b (GFR 30-44) Hypertension I10 Obesity (BMI 30-39.9) E66.9
== END 2023-10-07 08:58 | disposition home or self-care (01) ==
PROVIDERS: PCP Internal Medicine; Visit Provider Internal Medicine Hypertension Specialist
DX: R80.9 Proteinuria, unspecified (principal); N18.32 Chronic kidney disease, stage 3b; I10 Essential (primary) hypertension; E66.9 Obesity, unspecified
CPT/HCPCS: 99214

== ENCOUNTER → 2023-10-07 08:43 | Outpatient (BNVA) | payer OTHER, SELFPAY | PROVIDERS: PCP Internal Medicine; Visit Provider Internal Medicine Hypertension Specialist | DX: I12.9 Hypertensive chronic kidney disease with stage 1 through stage 4 chronic kidney disease, or unspecified chronic kidney disease (principal); N18.32 Chronic kidney disease, stage 3b; R80.9 Proteinuria, unspecified; E66.9 Obesity, unspecified; Z68.38 Body mass index [BMI] 38.0-38.9, adult | CPT/HCPCS: 99212 ==

== ENCOUNTER 2023-10-14 11:24 | Outpatient (REF) | payer OTHER, SELFPAY ==
--- NOTE | ~2023-10-14 | MM_ITS ---
EXAMINATION: MM DIAGNOSTIC DIGITAL MAMMOGRAPHY, RIGHT CLINICAL INFORMATION: 6 month follow-up for numerous groups of probably benign thumbprinting type calcifications right breast centrally and mildly laterally. Prior to site stereotactic biopsy right breast 09/11/2022 demonstrating benign columnar cell hyperplasia with calcifications. COMPARISON: Mammography: 04/09/2023, 04/13/2022 (2 site right stereotactic biopsy), 04/10/2022, 04/08/2022, 03/26/2022, 03/21/2021, and dating back to 2019. TECHNIQUE: Digital mammography is performed in the following views: 2-D spot magnification right CC and ML views x2. Computer-aided diagnosis was used for this study. FINDINGS: There are scattered areas of fibroglandular density (ACR BI-RADS breast composition Category b). There are 3 post benign biopsy clips in the central slightly lateral and upper right breast. There are at least 6 additional groups of microcalcifications in the central right breast, anterior to the biopsy clips, all with similar morphology containing very fine punctate minimally pleomorphic microcalcifications which resemble a fingerprint . These are entirely unchanged on today's examination. Given morphology of the previous biopsied calcifications was very similar, and is likely these also represent same benign etiology of columnar cell change with calcifications. Six-month follow-up recommended. MM/MM diagnostic mammo unilat RT IMPRESSION: No findings that are suspicious for malignancy in the right breast. At least 6 groups of stable calcifications demonstrating fingerprint morphology, with no aggressive changes. These remain probably benign, and six-month follow-up magnification views recommended when the patient is due for bilateral screening. ASSESSMENT: BI-RADS BI-RADS 3 - Probably benign finding(s) - 6 month follow-up suggested RECOMMENDATION: 6 Month F/U This patient's information was entered into a reminder system with a target due date for their next mammogram.
== END 2023-10-14 11:25 | disposition home or self-care (01) ==
LOC: HO.MAMMO 11:24
PROVIDERS: PCP Internal Medicine; Visit Provider Internal Medicine
DX: R92.1 Mammographic calcification found on diagnostic imaging of breast (principal)
CPT/HCPCS: 77062; 77065

== ENCOUNTER → 2023-10-14 11:30 | Outpatient (BNV) | payer OTHER, SELFPAY | PROVIDERS: PCP Internal Medicine; Visit Provider Radiology Diagnostic Radiology | DX: R92.1 Mammographic calcification found on diagnostic imaging of breast (principal) | CPT/HCPCS: 77065 ==

== ENCOUNTER 2023-11-27 09:33 | Outpatient (REF) | payer OTHER, SELFPAY ==
[2023-11-27 09:46] LABS: MANUAL DIFF FLAG NO
[2023-11-27 10:54] LABS: Basophils Absolute Auto 0.1 X10*3/uL (0.0-0.2); Basophils Percent Auto 0.7 % (0-2); Eosinophils Absolute Auto 0.3 X10*3/uL (0.0-0.4); Eosinophils Percent Auto 3.7 % (0-4); Hematocrit 42.5 % (37.0-47.0); Hemoglobin 13.8 g/dl (12.0-16.0); Imm Gran Abs Auto 0.03 X10*3/uL (0.00-0.03); Imm Gran Pct Auto 0.4 % (0.0-0.4); Lymphocytes Percent Auto 27.2 % (20-40); Mean Corpuscular HGB Conc 32.5 g/dl (31.0-35.0); Mean Corpuscular Hemoglobin 29.6 pg (27.0-33.0); Mean Platelet Volume 11.1 fL (9.4-12.3); Monocytes Absolute Auto 0.5 X10*3/uL (0.1-1.2); Monocytes Percent Auto 6.8 % (2-11); Neutrophils Absolute Auto 4.5 x10*3/uL (2.0-8.3); Neutrophils Percent Auto 61.2 % (45-73); Platelet Count 211 X10*3/uL (160-400); Red Blood Count 4.67 X10*6/uL (4.20-5.50); Red Cell Distribution Width 13.3 % (11.0-16.0); White Blood Count 7.4 X10*3/uL (4.8-10.8)
[2023-11-27 11:09] LABS: Appearance Urine Clear; Color Urine Yellow; Glucose Urine UA Negative (Negative); Leukocyte Esterase Urine Negative (Negative); Nitrite Urine Negative (Negative); PH 5.5 (5.0-9.0); UMIC TRIGGER UACC YES; Urine Blood Small (1+) (Negative); Urine Ketones Negative (Negative); Urine Protein 300 (3+) mg/dL (Neg-Trace)
[2023-11-27 11:26] LABS: Bacteria Urine None Seen (None Seen); Hyaline Casts Urine 0-2 /LPF (0-2); RBC Urine 0-2 /HPF (0-2); Squamous Epithelial Cell Urine 0-2 /HPF (0-2); WBC Urine 0-5 /HPF (0-5)
[2023-11-27 12:32] LABS: Estimated Average Glucose 117 mg/dL; Hemoglobin A1c % 5.7 % (<6.0)
[2023-11-27 12:33] LABS: Alanine Aminotransferase 12 U/L (0-31); Alkaline Phosphatase 92 U/L (39-117); Anion Gap 11 (12-20); Aspartate Amino Transferase 15 U/L (5-31); Bilirubin Total 0.5 mg/dL (0.0-1.0); Blood Urea Nitrogen 25 mg/dL (9-16); Calcium 9.9 mg/dL (8.4-10.2); Carbon Dioxide 29 mmol/L (22-29); Chloride 105 mmol/L (96-108); Cholesterol 200 mg/dL (<200); Estimated Glomerular Filt Rate 28; Free T4 (Free Thyroxine) 0.89 ng/dL (0.71-1.85); Glucose Fasting 87 mg/dL (60-99); HDL Cholesterol 47 mg/dL (>40); LDL Cholesterol Calculated 123 mg/dL (<100); Potassium 4.2 mmol/L (3.3-5.1); Sodium 141 mmol/L (135-145); TSH reflex Free T4 4.32 uIU/mL (0.32-4.0); Thyroid Stimulating Hormone 4.32 uIU/mL (0.32-4.0); Total Protein 7.1 g/dL (6.5-8.0); Triglycerides 150 mg/dL (<150); Vitamin D 25-OH Total 31.3 ng/mL (>30)
== END 2023-11-27 09:34 | disposition home or self-care (01) ==
LOC: HO.LAB 09:33
PROVIDERS: PCP Internal Medicine; Visit Provider Internal Medicine
DX: E78.00 Pure hypercholesterolemia, unspecified (principal); R79.89 Other specified abnormal findings of blood chemistry; D64.9 Anemia, unspecified; E55.9 Vitamin D deficiency, unspecified; R73.01 Impaired fasting glucose
CPT/HCPCS: 36415; 80053; 80061; 81001; 82306; 83036; 84439; 84443; 85025

== ENCOUNTER 2023-12-04 12:58 | Outpatient (AMB) | payer OTHER, SELFPAY ==
--- NOTE | 2023-12-04 13:00 | A.OFFPC_ITS ---
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 Required: No Accompanied by: Self / Same As Patient Allergies diphenhydramine [From Benadryl] Allergy (Severe, Verified 12/04/23 13:38) Angioedema hydromorphone [From Dilaudid] Allergy (Intermediate, Verified 12/04/23 13:38) Increased BP FRANK Inhibitors [FRANK INHIBITORS] Allergy (Unknown, Verified 12/04/23 13:38) PER H&P codeine Allergy (Unknown, Verified 12/04/23 13:38) Rash meperidine Allergy (Unknown, Verified 12/04/23 13:38) Rash morphine Allergy (Unknown, Verified 12/04/23 13:38) RASH, DIFF BREATHING,CHEST PRESSURE, throat swelling TAPE,PLASTIC Allergy (Unknown, Uncoded 12/04/23 13:38) Rash Medication List - Last Reconciled 12/04/23 by Daryn Duarte MD [ADULT PULL UPS (medium) As directed - #60 / month (2 pull ups/day) with 12 refills] albuterol sulfate 90 mcg/actuation 2 puffs PO Q4H PRN amitriptyline 10 mg PO BEDTIME amlodipine 10 mg PO DAILY [BEDSIDE COMMODE As directed] [bladder pads As directed - #90/month (3 pads / day), with 12 refills] budesonide-formoterol 160-4.5 mcg/actuation 2 inhalations inhalation BID cholecalciferol (vitamin D3) 25 mcg PO DAILY [CPAP device As directed] dapagliflozin propanediol (Farxiga) 10 mg PO DAILY diclofenac sodium 1% (Arthritis Pain (diclofenac)) 2 grams topical QID PRN [foot pedal As directed] furosemide 20 mg PO DAILY [incontinence wipes As directed] lansoprazole 30 mg PO DAILY linaclotide (Linzess) 145 mcg PO QAM losartan 100 mg PO DAILY magnesium oxide 400 mg PO DAILY nystatin 1 appl topical BID PRN rizatriptan 10 mg PO Q2-4H PRN sennosides (Savanna-dean) 17.2 mg (2 x 8.6 mg) PO BEDTIME simethicone (Gas Relief Extra Strength) 125 mg PO QID PRN tizanidine 2 mg PO BID PRN topiramate 100 mg PO BID trospium ER 60 mg PO DAILY vibegron (Gemtesa) mg PO ONCE Tobacco use date assessed: 12/04/23 Dental Screening Dental Screen Date: 12/04/23 Did you have a dental visit in the last 12 months?: No Did you have a dental problem in the last 6 months where you did not have access to dental care?: No Was dental information given to patient?: Patient has dentist HPI 3 Month F/U HPI Details Patient comes in today for her follow up visit States that she currently feels okay She denies any headaches or dizziness Denies any chest pains, no increased SOB No nausea/vomiting, no abdominal pain No change in bowel habits noted She continues to experience increased pain in both knees (chronic) Knee x-rays done a few months ago revealed (+) OA changes in both knees Patient also fell last month and sustained a right wrist fracture - x-rays done at the ER at [facility] revealed (+) right distal radial fracture She was seen by MIKAELA and had a cast placed on her right forearm / wrist - states that she has a follow up appt with orthopedics next week on 12/10/2023 and she is hoping that the cast can come off at the time Needs her Farxiga Rx refilled She had her follow up labs done last week - to discuss her results [facility] Medical History Family history of colonic polyps Left-sided low back pain with sciatica Benign essential hypertension Mid back pain on right side Edema Left hip pain Back pain Abdominal cramping Right lateral abdominal pain Right flank pain Pre-op examination Annual physical exam LENANA treated with BiPAP RLQ abdominal tenderness Right flank pain Left elbow pain Left shoulder pain Urinary incontinence Breast calcification, right Chronic renal insufficiency Asthma Migraine Normal colonoscopy (~12/25/16) Obstructive sleep apnea Diverticulitis Vitamin D deficiency Hypertension Surgical History History of biopsy History of facial surgery History of carpal tunnel repair History of nasal surgery History of ankle surgery (~2012) History of cryosurgery History of pubovaginal sling Hx of hernia repair History of bilateral tubal ligation Hx laparoscopic cholecystectomy (~2001) History of esophagogastroduodenoscopy Hx of colonoscopy Family History Mother High blood pressure Diabetes Arthritis Father Diabetes Kidney disease Heart disease Brother Diabetes Maternal Aunt Cancer of breast Brother Colon cancer, Onset Age: 57 Maternal Grandmother Cancer of breast Social History Household Members: None Housing: Apartment Alcohol intake: current Alcohol intake frequency: a few times a month Alcohol type: wine and hard liquor Patient Tobacco Use Status: Former Tobacco user Tobacco use type: Cigarette Years Smoked: 7 e-Cigarette/Vaping Use: Never Used Second Hand Smoke Exposure: No service: No Current occupational status: disabled Cognitive needs: No Hearing needs: No Vision needs: Yes Female Reproductive History Menstrual Age of Menarche: 13 Questionnaire PHQ-9 Over the last 2 weeks, how often have you been bothered by any of the following problems? 1. Little interest or pleasure in doing things: not at all 2. Feeling down, depressed, or hopeless: not at all 3. Trouble falling or staying asleep, or sleeping too much: not at all 4. Feeling tired or having little energy: not at all 5. Poor appetite or overeating: not at all 6. Feeling bad about yourself - or that you are a failure or have let yourself or your family down: not at all 7. Trouble concentrating on things, such as reading the newspaper or watching television: not at all 8. Moving or speaking so slowly that other people could have noticed. Or the opposite - being so fidgety or restless that you have been moving around a lot more than usual: not at all 9. Thoughts that you would be better off or of hurting yourself in some w ay: not at all Total score: 0 Depression Screening Interpretation: Negative Depression Screening Done: Yes 48190 - PHQ-9 Billing: Yes Source: Developed by Drs. Loi Fan, Lucia Lua, Trevor Lynch and colleagues, with an educational dion from [email or web address]. Thrive Questionnaire Date Thrive assessed: 12/04/23 I am a: Patient What is your living situation today?: I have a steady place to live Within the past 12 months, did the food you bought not last and you didn't have the money to get more?: Never true Within the past 12 months, did you worry whether your food would run out before you got money to buy more?: Never true Do you have trouble paying for medicines?: No Do you have trouble getting transportation to medical appointments?: No Do you have trouble paying your heating and electricity bill?: No Do you have trouble taking care of your child, family member or friend?: No Do you have trouble with day-to-day activities such as bathing, preparing meals, shopping, managing finances, etc.?: No Are you currently unemployed and looking for a job?: No Are you interested in more education?: No Please select the resources that you would like help with: None Currently or been in a relationship where the following occur: No concerns reported THRIVE Score: 0 AUDIT C Alcohol Use Questionnaire (AUDIT-C) 1. How often do you have a drink containing alcohol?: Never 3. How often do you have six or more drinks on one occasion?: Never Total Score: 0 Score Reviewed/Action Taken: Yes JACOB-7 AMB Questionnaire JACOB-7 Date JACOB - 7 assessed: 12/04/23 Feeling nervous, anxious, or on edge: 0 = Not at all Not being able to stop or control worryin = Not at all Worrying too much about different things: 0 = Not at all Trouble relaxin = Not at all Being so restless that it is hard to sit still: 0 = Not at all Becoming easily annoyed or irritable: 0 = Not at all Feeling afraid as if something awful might happen: 0 = Not at all Total JACOB-7 score (0-4 normal; 5-9 mild; 10-14 moderate; 15-21 severe): 0 Source: Developed by Drs. Loi Fan, Lucia Lua, Trevor Lynch and colleagues, with an educational dion from [email or web address]. Review of Systems Const Denies chills, Reports fatigue, Denies fever(s), Denies headache(s) and Reports weight gain ENT Denies dysphagia, Denies dizziness, Denies otalgia, Denies headache(s), Denies neck pain, Denies odynophagia and Denies sore throat Card Denies chest pain, Denies rapid heart rate, Denies irregular heart rhythm, Denies palpitations and Reports dyspnea on exertion (mild) Resp Denies chest congestion, Denies cough, Reports dyspnea on exertion (mild) and Denies wheezing GI Denies abdominal pain, Denies constipation, Denies dysphagia, Denies heartburn, Denies diarrhea, Denies nausea, Denies odynophagia and Denies vomiting Denies difficulty voiding, Denies nocturia, Denies dysuria, Reports urinary incontinence and Denies urinary urgency Musc Reports back pain (more on the left side), Reports arthralgias (increased pain in both knees; right wrist - (+) Fx last month (see HPI)), Reports muscle cramps (in both legs, with increased activity or walking), Denies neck pain and Reports radiating pain into limb (down her left leg) Skin/Breast Denies rash Neuro Denies dizziness, Denies headache(s) and Denies paresthesias Psych Denies anxiety Endo Reports fatigue and Denies palpitations Aller/Immun Denies wheezing Physical exam (Primary Care) Vital Signs: Last Vital Signs Pulse 60 12/04/23 13:01 BP 136/86 12/04/23 13:01 Pulse Ox 97 12/04/23 13:01 Oxygen Delivery Method Room Air 12/04/23 13:01 BMI result Body Mass Index 37.5 Tobacco/Smoking Status: Tobacco use Status Tobacco use date assessed 12/04/23 12/04/23 13:06 Patient Tobacco Use Status Former Tobacco user 12/04/23 13:06 Tobacco use type Cigarette 12/04/23 13:06 e-Cigarette/Vaping Use Never Used 12/04/23 13:06 PHQ-9: PHQ-9 Score PHQ-9: Total score 0 12/04/23 13:06 Depression Screening Interpretation: Negative Thrive Assessment: Date of Thrive Assessment Date Thrive assessed 12/04/23 12/04/23 13:06 Currently or been in a relationship where the following occur: No concerns reported Const General: no acute distress and alert HENMT Ears: TM's normal bilaterally and EAC's normal Throat: Yes posterior oropharynx normal and Yes tonsils normal Neck Neck: Yes no lymphadenopathy and Yes supple Thyroid: Thyroid normal Resp Auscultation: clear to auscultation bilaterally, no rales and no wheezes Cardio Rate: regular rate Rhythm: regular rhythm Heart sounds: no murmurs GI Palpation (GI): Soft to palpation and nontender Auscultation: normal bowel sounds General: Yes no CVA tenderness Back/Spine/Pelvis Back: no CVA tenderness Thoracic/Lumbar Spine: thoracic spinal tenderness (over the lower half of the thoracic spine) and lumbar spinal tenderness Skin Rashes: no rashes Extrem Other: right forearm/wrist is currently in a cast General: No clubbing, No cyanosis and Yes pedal edema (trace edema, bilateral) Right lower extremity: knee Details: tenderness Left lower extremity: hip/thigh Details: no tenderness and knee Details: tenderness Results Reviewed Results Reviewed: Laboratory Tests 11/27/23 11/27/23 09:45 09:50 WBC 7.4 Hgb 13.8 Hct 42.5 Plt Count 211 Sodium 141 Potassium 4.2 Creatinine 1.88 H Estimated GFR 28 Fasting Glucose 87 Hemoglobin A1c % 5.7 Calcium 9.9 AST 15 ALT 12 Triglycerides 150 H Cholesterol 200 H LDL Cholesterol, Calc 123 H HDL Cholesterol 47 25-OH Vitamin D Total 31.3 TSH 4.32 H Free T4 0.89 Ur Specific [place] 1.010 Urine Protein 300 (3+) H Urine Glucose (UA) Negative Urine Blood Small (1+) H Urine Nitrite Negative Ur Leukocyte Esterase Negative Assessment and Plan Assessment & Plan (1) Benign essential hypertension: Code(s): I10 - Essential (primary) hypertension Plan: Reinforced low sodium diet - goal is systolic BP of at least 120 to 130 mm or less, in light of her CKD Continue Losartan 100 mg QD (2) CKD (chronic kidney disease) stage 3, GFR 30-59 ml/min: Comment: 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, with minimal proteinuria Code(s): N18.30 - Chronic kidney disease, stage 3 unspecified Qualifiers: Chronic kidney disease stage 3 subtype: stage 3b (GFR 30-44) Qualified Code(s): N18.32 - Chronic kidney disease, stage 3b Plan: Renal Bx revealed (+) FSGS Her renal function appears to have stabilized again recently - results of her labs done last week reviewed and discussed with patient Reinforced complete avoidance of NSAIDs and she is encouraged again to increase her oral fluid intake Will recheck her labs in 3 months for follow up Follow up with nephrology as scheduled (3) Edema: Code(s): R60.9 - Edema, unspecified Qualifiers: Edema type: localized Qualified Code(s): R60.0 - Localized edema Plan: Mostly over both lower extremities - due to lymphedema Continue Furosemide 20 mg QD PRN - dose was lowered by nephrology from 40 mg a few months ago (4) Migraine: Code(s): G43.909 - Migraine, unspecified, not intractable, without status migrainosus Qualifiers: Migraine type: unspecified Status migrainosus presence: without status migrainosus Intractability: not intractable Qualified Code(s): G43.909 - Migraine, unspecified, not intractable, without status migrainosus Plan: Stable on prophylactic Tx with Topiramate 50 mg Q HS Reinforced avoidance of migraine triggers Continue Rizatriptan 10 mg PRN Follow up with neurology as scheduled (5) Asthma: Code(s): J45.909 - Unspecified asthma, uncomplicated Qualifiers: Asthma severity: moderate Asthma persistence: persistent Asthma complication type: uncomplicated Qualified Code(s): J45.40 - Moderate persistent asthma, uncomplicated Plan: Appears stable Continue Symbicort HFA 160-4.5 mcg 2 inhalations BID and Albuterol HFA 2 inhalations Q 6 hours PRN Follow up with [facility] as scheduled (6) Obstructive sleep apnea: Code(s): G47.33 - Obstructive sleep apnea (adult) (pediatric) Plan: Continue using her CPAP device when sleeping at night Follow up with Sleep Medicine as scheduled - she [facility] (7) Chronic idiopathic constipation: Code(s): K59.04 - Chronic idiopathic constipation Plan: Encouraged increased oral fluids and dietary fiber Continue Linzess 145 mcg QD and Senna 8.6 mg 2 tablets QD PRN Follow up with GI as scheduled (8) Roach's esophagus: Comment: LAST EGD 2018 DUE FOR REPEAT TO SURVEY 2020 OR 2021. AEB Code(s): K22.70 - Roach's esophagus without dysplasia Qualifiers: Roach's esophagus type: without dysplasia Qualified Code(s): K22.70 - Roach's esophagus without dysplasia Plan: Reinforced dietary restrictions Continue Famotidine 40 mg QD Follow up with GI as scheduled for continuing surveillance (9) Intertrigo: Code(s): L30.4 - Erythema intertrigo Plan: Continue Nystatin cream BID PRN (10) Thoracic spondylosis: Code(s): M47.814 - Spondylosis without myelopathy or radiculopathy, thoracic region Plan: MRI of the thoracic spine done last year revealed mild thoracic kyphosis with slight lower thoracic dextrocurvature and multilevel DDD and spondylosis, with multilevel disc herniations and disc osteophyte complexes without spinal cord impingement or spinal canal stenosis Reinforced activity and weight-lifting restrictions Patient states that physical therapy has helped somewhat in the past and will refer her as needed (11) Bilateral primary osteoarthritis of knee: Code(s): M17.0 - Bilateral primary osteoarthritis of knee Plan: X-rays of the knees done in June 2023 revealed (+) mild to moderate OA She [place] [facility] [place] a couple of months ago and was advised of options, which include cortisone injections and PT when needed Since she is currently also pursuing weight management, she has been advised to concentrate on this first as losing weight can also help alleviate a lot of her knee symptoms (12) Right wrist fracture: Code(s): S62.101A - Fracture of unspecified carpal bone, right wrist, initial encounter for closed fracture Qualifiers: Encounter type: sequela Fracture type: closed Qualified Code(s): S62.101S - Fracture of unspecified carpal bone, right wrist, sequela Plan: She reportedly fell and sustained a distal right radial fracture last month She went to the ER at [facility] after her fall and was seen by MIKAELA and eventual ly had a cast placed on her right forearm/wrist She will be seeing MIKAELA for follow up on this next week on 12/10/2023 (13) Elevated TSH: Code(s): R79.89 - Other specified abnormal findings of blood chemistry Plan: Her TSH is still slightly elevated but free T4 level remains normal on her re cent labs; patient remains clinically euthyroid Will continue to monitor her TFTs regularly (14) Urinary incontinence: Code(s): R32 - Unspecified urinary incontinence Qualifiers: Urinary Incontinence type: unspecified incontinence Qualified Code(s): R32 - Unspecified urinary incontinence Plan: Follow up with urology as scheduled (15) Obesity (BMI 30-39.9): Code(s): E66.9 - Obesity, unspecified Plan: Reinforced diet/exercise as tolerated/lose weight She was referred to weight management previously and was seen by bariatric surgery a few months ago but as she was more interested in medical weight management rather than surgical, was placed on a list for medical weight management States that she was seen a couple of months ago and was given some materials to read and go over to help her lose weight I have previously advised patient that with her compromised renal function, as meds like Ozempic and Wegovy are cleared or excreted renally, I would not really recommend these for her at this time She has since reached out to Dr. Galdamez's office in [place] for weight management (as she lives in [place]) and is now seeing them for weight management Plan Follow up in 3 months Orders: Orders Complete Blood Count Auto Diff 3 Months D64.9 - Anemia, unspecified [place]. Panel Fast 3 Months E78.00 - Pure hypercholesterolemia, unspecified Hemoglobin A1c 3 Months R73.01 - Impaired fasting glucose Thyroid Stimulating Hormone 3 Months R79.89 - Other specified abnormal findings of blood chemistry Free T4 (Free Thyroxine) 3 Months R79.89 - Other specified abnormal findings of blood chemistry UA CC w/rflx Micro + Cult 3 Months R30.0 - Dysuria Vitamin D 25-OH Total 3 Months E55.9 - Vitamin D deficiency, unspecified Lipid Panel 3 Months E78.00 - Pure hypercholesterolemia, unspecified Medications: Changed From dapagliflozin propanediol (Farxiga) 10 mg PO DAILY To dapagliflozin propanediol (Farxiga) 10 mg PO DAILY 90 days 90 tabs 3RF Coding Level of Care Code Est Pt Level 4 (62528) Complex EM visit Add On G2211 Diagnoses Benign essential hypertension I10 Stage 3b chronic kidney disease N18.32 Chronic kidney disease stage 3 subtype: stage 3b (GFR 30-44) Localized edema R60.0 Edema type: localized Migraine without status migrainosus, not intractable, unspecified migraine type G43.909 Migraine type: unspecified Status migrainosus presence: without status migrainosus Intractability: not intractable Moderate persistent asthma without complication J45.40 Asthma severity: moderate Asthma persistence: persistent Asthma complication type: uncomplicated Obstructive sleep apnea G47.33 Chronic idiopathic constipation K59.04 Roach's esophagus without dysplasia K22.70 Roach's esophagus type: without dysplasia Intertrigo L30.4 Thoracic spondylosis M47.814 Bilateral primary osteoarthritis of knee M17.0 Closed fracture of right wrist, sequela S62.101S Encounter type: sequela Fracture type: closed Elevated TSH R79.89 Urinary incontinence, unspecified type R32 Urinary Incontinence type: unspecified incontinence Obesity (BMI 30-39.9) E66.9
[2023-12-04 13:01] VITALS: BP 136/86; PULSE 60; O2SAT 97; BMI 37.5
== END 2023-12-04 13:53 | disposition home or self-care (01) ==
PROVIDERS: PCP Internal Medicine; Visit Provider Internal Medicine
DX: I12.9 Hypertensive chronic kidney disease with stage 1 through stage 4 chronic kidney disease, or unspecified chronic kidney disease (principal); N18.32 Chronic kidney disease, stage 3b; G43.909 Migraine, unspecified, not intractable, without status migrainosus; J45.40 Moderate persistent asthma, uncomplicated; R60.0 Localized edema; G47.33 Obstructive sleep apnea (adult) (pediatric); K59.04 Chronic idiopathic constipation; K22.70 Barrett's esophagus without dysplasia; L30.4 Erythema intertrigo; M47.814 Spondylosis without myelopathy or radiculopathy, thoracic region; M17.0 Bilateral primary osteoarthritis of knee; S62.101D Fracture of unspecified carpal bone, right wrist, subsequent encounter for fracture with routine healing; R79.89 Other specified abnormal findings of blood chemistry; R32 Unspecified urinary incontinence; E66.9 Obesity, unspecified
CPT/HCPCS: 99214; G2211

== ENCOUNTER 2024-02-10 11:26 | Outpatient (AMB) | payer OTHER, SELFPAY ==
[2024-02-10 11:30] VITALS: BP 160/88; PULSE 50; O2SAT 99; BMI 38.5
--- NOTE | 2024-02-10 11:30 | HO.NEPHOV ---
Vital Signs 02/10/24 11:30 02/10/24 11:51 Height 5 ft 1 in Weight 204 lb BMI 38.5 BP 160/88 H 132/82 Blood Pressure Location Lt brachial Lt brachial Position Sitting Sitting Pulse 50 Pulse Source Pulse Oximeter Pulse Oximetry (%) 99 Oxygen Delivery Method Room Air Intake Visit Reasons: 3 mon follow up/ Conf Special Librarian Required: No Accompanied by: Self / Same As Patient Allergies diphenhydramine [From Benadryl] Allergy (Severe, Verified 02/10/24 11:32) Angioedema hydromorphone [From Dilaudid] Allergy (Intermediate, Verified 02/10/24 11:32) Increased BP FRANK Inhibitors [FRANK INHIBITORS] Allergy (Unknown, Verified 02/10/24 11:32) PER H&P codeine Allergy (Unknown, Verified 02/10/24 11:32) Rash meperidine Allergy (Unknown, Verified 02/10/24 11:32) Rash morphine Allergy (Unknown, Verified 02/10/24 11:32) RASH, DIFF BREATHING,CHEST PRESSURE, throat swelling TAPE,PLASTIC Allergy (Unknown, Uncoded 12/09/23 13:45) Rash Medication List - Last Reconciled 02/10/24 by Mati Durbin MD [ADULT PULL UPS (medium) As directed - #60 / month (2 pull ups/day) with 12 refills] albuterol sulfate 90 mcg/actuation 2 puffs PO Q4H PRN amitriptyline 10 mg PO BEDTIME amlodipine 10 mg PO DAILY [BEDSIDE COMMODE As directed] [bladder pads As directed - #90/month (3 pads / day), with 12 refills] budesonide-formoterol 160-4.5 mcg/actuation 2 inhalations inhalation BID cholecalciferol (vitamin D3) 25 mcg PO DAILY [CPAP device As directed] dapagliflozin propanediol (Farxiga) 10 mg PO DAILY 90 days diclofenac sodium 1% (Arthritis Pain (diclofenac)) 2 grams topical QID PRN [foot pedal As directed] furosemide 20 mg PO DAILY [incontinence wipes As directed] lansoprazole 30 mg PO DAILY linaclotide (Linzess) 145 mcg PO QAM losartan 100 mg PO DAILY magnesium oxide 400 mg PO DAILY nystatin 1 appl topical BID PRN rizatriptan 10 mg PO Q2-4H PRN sennosides (Savanna-dean) 17.2 mg (2 x 8.6 mg) PO BEDTIME simethicone (Gas Relief Extra Strength) 125 mg PO QID PRN tizanidine 2 mg PO BID PRN topiramate 100 mg PO BID trospium ER 60 mg PO DAILY vibegron (Gemtesa) mg PO ONCE HPI Comments Details: Middle-aged woman with history of obesity and hypertension with proteinuria and CKD. She has biopsy-proven FSGS. Biopsy was done more than 15 years ago. Serum creatinine fluctuates between 1.5 minutes 1.8 mg/dL. Recently she was started on Farxiga by another internet marketing intern. She continues to experience knee pain. She also has history of constipation for which she is on Linzess. Today she has no shortness of breath. No nausea vomiting. No edema. No urinary symptoms. Recently she underwent ultrasound of the neck which showed multiple lymph nodes. Still with joint pains Cr is up to 1.8 and 2.1 gm proteinuria She underwent a repeat kidney biopsy. Official results are still pending. I spoke to the pathologist and she did have FSGS and electron microscopy is still pending. 02/10/24 Overall doing OK NO change in weight Uses CPAP PFSH Medical History Family history of colonic polyps Left-sided low back pain with sciatica Benign essential hypertension Mid back pain on right side Edema Left hip pain Back pain Abdominal cramping Right lateral abdominal pain Right flank pain Pre-op examination Annual physical exam LEANNA treated with BiPAP RLQ abdominal tenderness Right flank pain Left elbow pain Left shoulder pain Urinary incontinence Breast calcification, right Chronic renal insufficiency Asthma Migraine Normal colonoscopy (~12/25/16) Obstructive sleep apnea Diverticulitis Vitamin D deficiency Hypertension Surgical History History of biopsy History of facial surgery History of carpal tunnel repair History of nasal surgery History of ankle surgery (~2012) History of cryosurgery History of pubovaginal sling Hx of hernia repair History of bilateral tubal ligation Hx laparoscopic cholecystectomy (~2001) History of esophagogastroduodenoscopy Hx of colonoscopy Family History Mother High blood pressure Diabetes Arthritis Father Diabetes Kidney disease Heart disease Brother Diabetes Maternal Aunt Cancer of breast Brother Colon cancer, Onset Age: 57 Maternal Grandmother Cancer of breast Social History Household Members: None Housing: Apartment Alcohol intake: current Alcohol intake frequency: a few times a month Alcohol type: wine and hard liquor Patient Tobacco Use Status: Former Tobacco user Tobacco use type: Cigarette Years Smoked: 7 e-Cigarette/Vaping Use: Never Used Second Hand Smoke Exposure: No service: No Current occupational status: disabled Cognitive needs: No Hearing needs: No Vision needs: Yes Female Reproductive History Menstrual Age of Menarche: 13 Physical Exam Vital Signs: Last Vital Signs Pulse 50 02/10/24 11:30 BP 160/88 H 02/10/24 11:30 Pulse Ox 99 02/10/24 11:30 Oxygen Delivery Method Room Air 02/10/24 11:30 BMI result Body Mass Index 38.5 Const General: comfortable Nutritional Appearance: well nourished Orientation/consciousness: patient oriented x3 HEENT Head: No normal to inspection Mouth: moist mucous membranes Neck Neck: Yes supple and Yes no JVD Resp Auscultation: clear to auscultation bilaterally, no rales and rub present Cardio Jugular venous distension: no JVD Palpation: no palpable S3 and no palpable S4 Heart sounds: no rubs GI Palpation (GI): Soft to palpation and nontender Percussion: No Fluid wave present General: Yes no CVA tenderness Back/Spine/Pelvis Back: no CVA tenderness Skin General skin exam: no rashes or lesions noted Neuro General: patient oriented x3 Extrem General: Yes no pedal edema and No clubbing Results Reviewed Nephrology Results: Hgb 13.8 g/dl (12.0-16.0) 11/27/23 WBC 7.4 X10*3/uL (4.8-10.8) 11/27/23 Plt Count 211 X10*3/uL (160-400) 11/27/23 Sodium 141 mmol/L (135-145) 11/27/23 Potassium 4.2 mmol/L (3.3-5.1) 11/27/23 Chloride 105 mmol/L (96-108) 11/27/23 Carbon Dioxide 29 mmol/L (22-29) 11/27/23 BUN 25 mg/dL (9-16) H 11/27/23 Creatinine 1.88 mg/dL (0.5-1.4) H 11/27/23 Calcium 9.9 mg/dL (8.4-10.2) 11/27/23 Urine Protein 300 (3+) mg/dL (Neg-Trace) H 11/27/23 Assessment & Plan Assessment & Plan (1) Proteinuria: Code(s): R80.9 - Proteinuria, unspecified Category: Medical (2) CKD (chronic kidney disease) stage 3, GFR 30-59 ml/min: Comment: 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, with minimal proteinuria Code(s): N18.30 - Chronic kidney disease, stage 3 unspecified Category: Medical Qualifiers: Chronic kidney disease stage 3 subtype: stage 3b (GFR 30-44) Qualified Code(s): N18.32 - Chronic kidney disease, stage 3b Plan: 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 Creatinine fluctuates has gradually increased 1.8 - Remains unchanged Goal slow the portion disease. Maintain losartan for renal protection She is non nephrotic range proteinuria. Continue to avoid nephrotoxic agents including NSAIDs Repeat kidney biopsy revealed FSGS. 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 She needs weight loss. We will maximize angiotensin receptor blockade. -Keep losartan 100 mg. Continue with Farxiga. Discussed importance of weight loss. She should stay on a low-sodium diet (3) Hypertension: Code(s): I10 - Essential (primary) hypertension Category: Medical Plan: Blood pressure is better controlled Continue with losartan (4) Obesity (BMI 30-39.9): Code(s): E66.9 - Obesity, unspecified Category: Medical Plan: We had a lengthy discussion about weight loss The meantime encouraged her to increase physical activity and decreasing calorie intake Plan Other problems include cervical lymph nodes which require further workup Orders: Orders Basic Metabolic Panel 3 Months N18.32 - Chronic kidney disease, stage 3b, R80.9 - Proteinuria, unspecified Total Protein Urine Random 3 Months N18.32 - Chronic kidney disease, stage 3b, R80.9 - Proteinuria, unspecified Creatinine Urine 3 Months N18.32 - Chronic kidney disease, stage 3b, R80.9 - Proteinuria, unspecified Coding Level of Care Code Est Pt Level 4 (54389) Diagnoses Proteinuria R80.9 Stage 3b chronic kidney disease N18.32 Chronic kidney disease stage 3 subtype: stage 3b (GFR 30-44) Hypertension I10 Obesity (BMI 30-39.9) E66.9
[2024-02-10 11:51] VITALS: BP 132/82
== END 2024-02-10 11:58 | disposition home or self-care (01) ==
PROVIDERS: PCP Internal Medicine; Visit Provider Internal Medicine Hypertension Specialist
DX: R80.9 Proteinuria, unspecified (principal); N18.32 Chronic kidney disease, stage 3b; I10 Essential (primary) hypertension; E66.9 Obesity, unspecified
CPT/HCPCS: 99214

== ENCOUNTER → 2024-02-10 11:26 | Outpatient (BNVA) | payer OTHER, SELFPAY | PROVIDERS: PCP Internal Medicine; Visit Provider Internal Medicine Hypertension Specialist | DX: I12.9 Hypertensive chronic kidney disease with stage 1 through stage 4 chronic kidney disease, or unspecified chronic kidney disease (principal); R80.9 Proteinuria, unspecified; E66.9 Obesity, unspecified; N18.32 Chronic kidney disease, stage 3b; Z68.38 Body mass index [BMI] 38.0-38.9, adult | CPT/HCPCS: 99212 ==

== ENCOUNTER 2024-03-02 11:37 | Outpatient (AMB) | payer OTHER, SELFPAY ==
--- NOTE | 2024-03-02 11:40 | A.OFFVIS_ITS ---
Vital Signs 03/02/24 11:46 Height 5 ft 1 in Weight 205 lb 0.478 oz BMI 38.7 BP 178/97 H Blood Pressure Location Lt brachial Position Sitting Pulse 56 Intake Visit Reasons: 6 month follow up Intake Note: Roxie presents in 6 months follow up of [facility]IC. CC: Patient c/o abdominal cramps, RUQ abdominal pain, inflammation, and feeling her abdomen hot at night for about a week. Certified Registered Nurse Anesthetist Required: Yes Certified Registered Nurse Anesthetist Services: Certified Registered Nurse Anesthetist Offered & Declined Accompanied by: Self / Same As Patient Allergies diphenhydramine [From Benadryl] Allergy (Severe, Verified 03/02/24 11:57) Angioedema hydromorphone [From Dilaudid] Allergy (Intermediate, Verified 03/02/24 11:57) Increased BP FRANK Inhibitors [FRANK INHIBITORS] Allergy (Unknown, Verified 03/02/24 11:57) PER H&P codeine Allergy (Unknown, Verified 03/02/24 11:57) Rash meperidine Allergy (Unknown, Verified 03/02/24 11:57) Rash morphine Allergy (Unknown, Verified 03/02/24 11:57) RASH, DIFF BREATHING,CHEST PRESSURE, throat swelling TAPE,PLASTIC Allergy (Unknown, Uncoded 12/09/23 13:45) Rash HPI HPI 6 month follow up: Details: Assessment & Plan (1) GERD (gastroesophageal reflux disease): Comment: Stage 3CKD trying to get lansoprazole to accommodate this. She had a metallic side effect from famotidine/H2 medications Code(s): K21.9 - Gastro-esophageal reflux disease without esophagitis Category: Medical (2) Roach's esophagus: Comment: LAST EGD 2018 DUE FOR REPEAT TO SURVEY 2020 OR 2021. AEB Code(s): K22.70 - Roach's esophagus without dysplasia Category: Medical Qualifiers: Roach's esophagus type: without dysplasia Qualified Code(s): K22.70 - Roach's esophagus without dysplasia (3) Chronic idiopathic constipation: Code(s): K59.04 - Chronic idiopathic constipation Category: Medical (4) Abdominal bloating: Code(s): R14.0 - Abdominal distension (gaseous) Category: Medical Plan She continues to do well on her Linzess 145 micro g, senna, famotidine and simethicone. She has not been taking the lansoprazole because SSBE is not there she no longer needs it. This is very wrong, I put her on it because of her renal disease. I educate her that in order to prevent esophageal cancer someone who has Barretts esophagus likely needs lifelong acid reduction therapy. She is having lower abd bloating, but she also has been out of her linzess. She also id going through menopause and had her menses after not having any for 1 year. She is considering bariatric surgery. ROV 6 mos. Medications: Refilled lansoprazole 30 mg PO DAILY 30 caps 6RF K21.9 - Gastro-esophageal reflux disease without esophagitis sennosides (Savanna-dean) 17.2 mg (2 x 8.6 mg) PO BEDTIME 60 tabs 6RF K59.04 - Chronic idiopathic constipation linaclotide (Linzess) 145 mcg PO QAM 30 caps 6RF K59.04 - Chronic idiopathic constipation simethicone (Gas Relief Extra Strength) 125 mg PO QID PRN 120 tabs 6RF for abdominal pain TODAYS VISIT She continues to do well on her Linzess 145 micro g, senna, famotidine and amadeo thicone. She has not been taking the lansoprazole consistently as she forgets to take it in the morning so I suggest that she take it at night putting it on her nightstand and she thinks this will be more feasible for her. Again she did have a spot of Barretts esophagus want to prevent this from recurring. Return office visit in 6 months [facility] Medical History (Updated 03/02/24 @ 12:07 by JOSEPH Packer) Family history of colonic polyps Left-sided low back pain with sciatica Benign essential hypertension Mid back pain on right side Edema Left hip pain Back pain Abdominal cramping Right lateral abdominal pain Right flank pain Pre-op examination Annual physical exam LEANNA treated with BiPAP RLQ abdominal tenderness Right flank pain Left elbow pain Left shoulder pain Urinary incontinence Breast calcification, right Chronic renal insufficiency Asthma Migraine Normal colonoscopy (~12/25/16) Obstructive sleep apnea Diverticulitis Vitamin D deficiency Hypertension Surgical History (Updated 03/02/24 @ 12:12 by ABEBE PackerC) History of biopsy History of facial surgery History of carpal tunnel repair History of nasal surgery History of ankle surgery (~2012) History of cryosurgery History of pubovaginal sling Hx of hernia repair History of bilateral tubal ligation Hx laparoscopic cholecystectomy (~2001) History of esophagogastroduodenoscopy Hx of colonoscopy Family History Mother High blood pressure Diabetes Arthritis Father Diabetes Kidney disease Heart disease Brother Diabetes Maternal Aunt Cancer of breast Brother Colon cancer, Onset Age: 57 Maternal Grandmother Cancer of breast Social History Household Members: None Housing: Apartment Alcohol intake: current Alcohol intake frequency: a few times a month Alcohol type: wine and hard liquor Patient Tobacco Use Status: Former Tobacco user Tobacco use type: Cigarette Years Smoked: 7 e-Cigarette/Vaping Use: Never Used Second Hand Smoke Exposure: No service: No Current occupational status: disabled Cognitive needs: No Hearing needs: No Vision needs: Yes Female Reproductive History Menstrual Age of Menarche: 13 Review of Systems Const Denies fatigue, Denies fever(s), Denies night sweats, Denies poor appetite and Denies weight loss ENT Reports Normal hearing present, Denies dental pain, Denies dysphagia, Denies hearing loss, Denies mouth pain, Denies odynophagia, Denies throat swelling, Denies tongue swelling and Reports other (Dentition adequate) Card Reports no additional complaints Resp Reports no additional complaints GI Details: Reports abdominal pain, Denies melena, Denies bloating, Denies hematochezia, Reports constipation, Denies GI cramping, Denies dysphagia, Denies excessive flatus, Denies early satiety, Reports heartburn, Denies diarrhea, Denies nausea, Denies odynophagia, Denies vomiting and Denies hematemesis Musc Reports back pain Skin/Breast Denies pruritus, Denies lesions, Denies rash and Denies jaundice Neuro Reports Normal hearing present and Denies Abnormal speech present Endo Denies fatigue Aller/Immun Denies throat swelling and Denies tongue swelling Physical Exam Vital Signs: Last Vital Signs Pulse 56 03/02/24 11:46 BP 178/97 H 03/02/24 11:46 BMI result Body Mass Index 38.7 Const General: cooperative, no acute distress, well developed and well groomed Nutritional Appearance: well nourished and obese Orientation/consciousness: oriented to person, oriented to place and oriented to time Limitations: No language barrier HEENT Head: Yes normocephalic and Yes atraumatic Eyes General: appearance normal, both eyes and all related structures Pupils: Equal, round and reactive pupils present Neck Neck: Yes normal visual inspection and Yes no lymphadenopathy Thyroid: Thyroid normal Resp Effort & Inspection: normal respiratory effort and able to speak in complete sentences Auscultation: clear to auscultation bilaterally Cardio Rate: regular rate Rhythm: regular rhythm Heart sounds: Normal, physiologic split S2 sound present Peripheral pulses: radial pulses present and posterior tibial pulses present GI Inspection: No distended, Yes Abdominal panniculus present and Yes obesity Palpation (GI): Soft to palpation, nontender, no guarding, not rigid and No hepatosplenomegaly present Percussion: Yes normal to percussion Auscultation: normal bowel sounds Rectal Exam - Female: deferred Skin General skin exam: no rashes or lesions noted, turgor normal, skin not dry, no jaundice, No spider nevi and no striae Rashes: no rashes Nails: normal Neuro General: oriented to person, oriented to place and oriented to time Cranial nerves: Yes Equal, round and reactive pupils present and Yes Normal hearing present Speech: No Abnormal speech present Extrem General: Yes normal to inspection, No clubbing, No cyanosis and No edema Psych Appearance: grossly normal and well kempt Mental Status: mental status grossly normal Speech and movement: Normal speech and movement present Affect: normal affect Attitude: cooperative Thought process: Normal thought process present and not confabulating Thought content: Normal thought content present Insight: Fair insight present (Psych) Judgement: Fair judgement present (Psych) Assessment & Plan Assessment & Plan (1) GERD (gastroesophageal reflux disease): Comment: Stage 3CKD trying to get lansoprazole to accommodate this. She had a metallic side effect from famotidine/H2 medications Code(s): K21.9 - Gastro-esophageal reflux disease without esophagitis Category: Medical (2) Roach's esophagus: Comment: LAST EGD 2018 DUE FOR REPEAT TO SURVEY 2020 OR 2021. AEB Code(s): K22.70 - Roach's esophagus without dysplasia Category: Medical Qualifiers: Roach's esophagus type: without dysplasia Qualified Code(s): K22.70 - Roach's esophagus without dysplasia (3) Chronic idiopathic constipation: Code(s): K59.04 - Chronic idiopathic constipation Category: Medical (4) Thoracic spondylosis: Comment: 2022 MRI T spine DISC SPACES AND ENDPLATES: Discogenic degenerative changes are noted at multiple levels between T3-T4 and T11-T12 inclusive, with predominantly mild and moderate degrees of intervertebral disc space height loss, multilevel disc desiccation, Schmorl's nodes and mild-to -moderate degrees of anterior marginal spondylosis. There is bridging osteophytosis asymmetric to the right at T7-T8 and T8-T9 and on the right at T11-T12.2. Multilevel DDD and spondylosis, with multilevel disc herniations and disc osteophyte complexes Code(s): M47.814 - Spondylosis without myelopathy or radiculopathy, thoracic region Category: Medical Plan She continues to do well on her Linzess 145 micro g, senna, famotidine and simethicone. She has not been taking the lansoprazole consistently as she forgets to take it in the morning so I suggest that she take it at night putting it on her nightstand and she thinks this will be more feasible for her. Again she did have a spot of Barretts esophagus want to prevent this from recurring. She continues to complain of pain on her right side particularly when she is laying on that side. I really think that this has more to do with her rather severe and extensive thoracic spondylosis with bridging osteophytes to the right from T7 through T12. Return office visit in 6 months Medications: Refilled linaclotide (Linzess) 145 mcg PO QAM 30 caps 6RF K59.04 - Chronic idiopathic constipation simethicone (Gas Relief Extra Strength) 125 mg PO QID PRN 120 tabs 6RF for abdominal pain sennosides (Savanna-dean) 17.2 mg (2 x 8.6 mg) PO BEDTIME 60 tabs 6RF K59.04 - Chronic idiopathic constipation lansoprazole 30 mg PO DAILY 30 caps 6RF K21.9 - Gastro-esophageal reflux disease without esophagitis Coding Level of Care Code Est Pt Level 3 (62329) Diagnoses GERD (gastroesophageal reflux disease) K21.9 Roach's esophagus without dysplasia K22.70 Roach's esophagus type: without dysplasia Chronic idiopathic constipation K59.04 Thoracic spondylosis M47.814
[2024-03-02 11:46] VITALS: BP 178/97; PULSE 56; BMI 38.7
--- OUTSIDE RECORDS SUMMARY | 2024-03-08 18:15 | XMS_ITS | Data Portability ---
Author Organization [place] [facility], Allergy Address [address] [place] [id number] Assessment No assessment recorded. Plan of Treatment Reminders Order Date Submit Date Provider Last Modified By Organization Details Last Modified Time Details Appointments None record ed. Lab None record ed. Referral None record ed. Procedures None record ed. Surgeries None record ed. Imaging None record ed. Medication Orders None record ed. Patient TargetsNo targets recorded. Patient InstructionsNo instructions recorded. Reason for Referral None Reported. Results Created Date Observation Date Name Description Value Unit Range Abnormal Flag Note LastModifiedBy Organization Detail LastModifiedTime 10/20/19 24 08/03/2023 MRI, head + neck + orbit s, w/wo contr ast No observ ation record ed. [email or web address] Not Available 2023 11:27:36 11/17/19 24 04/13/2019 audio gram No observ ation record ed. [email or web address] Not Available 23:02:04 11/17/19 24 05/18/2019 imagi ng/di agnos tic resul t No observ ation record ed. [email or web address] Not Available 23:02:09 11/17/19 24 05/21/2020 imagi ng/di agnos tic resul t No observ ation record ed. [email or web address] Not Available 23:02:11 11/17/19 24 05/21/2020 imagi ng/di agnos tic resul t No observ ation record ed. [email or web address] Not Available 23:02:20 11/17/19 24 04/13/2019 audio gram No observ ation record ed. [email or web address] Not Available 23:03:25 Result Notes None recorded. Problems Name Problem SNOMED Code Status Onset Date Resolution Date Notes Provider Name and Address Organization Details Recorded Time Disorder of right Eustachia n tube 26538734928 24129 Active 2019 Other specified disorders of Eustachia n tube, right ear; Note: Date Diagnosed : 04/13/2019 3:52 PM (H69.81) Not Available [facility] 4 02:31:20 Migraine without aura, not refractor y 243879282 Active 2019 Migraine without aura, not intractab le, without status migrainos us; Note: Date Diagnosed : 04/13/2019 3:52 PM (G43.009) Not Available [facility] 4 02:31:10 Otalgia of right ear 6213804929 Active 2019 Otalgia, right ear; Note: Date Diagnosed : 04/13/2019 3:52 PM (H92.01) Not Available [facility] 4 02:31:19 Mass of neck 203486615 Active 2019 Localized swelling, mass and lump, neck; Note: Date Diagnosed : 06/09/2019 4:03 PM (R22.1) Not Available [facility] 4 02:31:13 Neck swelling 064271248 Active 2019 Localized swelling, mass and lump, neck; Note: Date Diagnosed : 06/09/2019 4:03 PM (R22.1) Not Available [facility] 4 02:31:13 Temporoma ndibular joint disorder 06822042 Active 2019 Other specified disorders of temporoma ndibular joint; Note: Date Diagnosed : 04/13/2019 3:57 PM (M26.69) Not Available [facility] 4 02:31:12 Tinnitus of right ear 42039618184 08 Active 2019 Tinnitus, right ear; Note: Date Diagnosed : 04/13/2019 3:52 PM (H93.11) Not Available [facility] 4 02:31:24 Severe obesity 32885717163 104 Active 2019 Morbid (severe) obesity due to excess calories; Note: Date Diagnosed : 04/13/2019 3:52 PM (E66.01) Not Available [facility] 4 02:31:11 Problem Notes None recorded. Procedures Surgical History None recorded. Imaging Results Imaging Date Name Status LastModified by Organiz ation Details LastModified Time 08/03/2023 MRI, head + neck + orbits, w/wo contrast completed [email or web address] Information not available 10/20/2023 11:27:36 04/13/2019 audiogram completed Information not available 11/17/2023 23:02:04 05/18/2019 imaging/diagno stic result completed Information not available 11/17/2023 23:02:09 05/21/2020 imaging/diagno stic result completed Information not available 11/17/2023 23:02:11 05/21/2020 imaging/diagno stic result completed Information not available 11/17/2023 23:02:20 04/13/2019 audiogram completed Information not available 11/17/2023 23:03:25 Procedure Notes None recorded. Medical Equipment None Reported. Allergies Allergen ID Allergen Name Allergen Category Reaction Reaction Severity Criticality Documentation Date Start Date Code Code System Note Provider Name and Address Organization Details Recorded Time 00965 morphine medicatio n other Not available Not available 08/11/2023 7052 RxNorm React ion: unkno wn, unspe cifie d;; Not Available [facility] 4 00:59:01 Medications Name Sig Start Date Stop Date Status Note LastModified by Organization Details LastModified Time losartan 50 mg tablet Take 1 tablet (50 mg total) by mouth in the morning and 1 tablet (50 mg total) in the evening. active Not Available Not Available No t Available furosemid e 40 mg tablet 2019 active Medicati on ID: [id number] D uration Value: 30 Brand Name: furosemjesse de Send Method: E-Prescr ibed Sub s Allowed: subs OK Speci al Instruct ion: TAKE ONE TABLET BY MOUTH ONCE DAILY Me dication GenericN zoe: furosemi de Not Available Not Available Not Available ranitidin e 300 mg tablet 2019 active Medicati on ID: [id number] D uration Value: 30 Brand Name: ranitidi ne HCl Send Method: E-Prescr ibed Sub s Allowed: subs OK Speci al Instruct ion: TAKE ONE TABLET BY MOUTH ONCE A DAY Medi cationGe nericNam e: ranitidi ne HCl Not Available Not Available Not Available sumatript an 100 mg tablet 2019 active Medicati on ID: [id number] D uration Value: 30 Brand Name: sumatrip cheung succinat e Send Method: E-Prescr ibed Sub s Allowed: subs OK Speci al Instruct ion: TAKE ONE TABLET BY MOUTH DAILY NEEDED FOR MIGRAINE HEADACHE . MAY RE PEAT DOSE IN 2 HOURS IF needed. Medicati onGeneri cName: sumatrip cheung succinat e Not Available Not Available Not Available senna 8.6 mg tablet TAKE 2 TABLETS BY MOUTH ONCE DAILY AT BEDTIME active Not Available Not Available No t Available famotidin e 40 mg tablet 2020 active Medicati on ID: [id number] B rand Name: famotidi ne Send Method: E-Prescr ibed Sub s Allowed: subs OK Medic ationGen ericName : famotidi ne Not Available Not Available Not Available rizatript an 10 mg tablet TAKE ONE TABLET BY MOUTH DAILY NEEDED FOR MIGRAINE HEADACHE . MAY REPEAT DOSE ONCE IN 2 HOURS active Not Available Not Available No t Available amlodipin e 2.5 mg tablet 2019 active Medicati on ID: [id number] D uration Value: 30 Brand Name: amlodipi ne Send Method: E-Prescr ibed Sub s Allowed: subs OK Speci al Instruct ion: TAKE ONE TABLET BY MOUTH ONCE A DAY IN THE MORNING Medicati onGeneri cName: amlodipi ne Not Available Not Available Not Available amlodipin e 5 mg tablet Take 1 tablet (5 mg total) by mouth 1 (one) time each day active Not Available Not Available No t Available triamcino lone acetonide 0.1 % topical cream APPLY TO THE AFFECTED AREA two (2) times a day active Not Available Not Available No t Available magnesium oxide 400 mg (241.3 mg magnesium ) tablet TAKE 1 TABLET BY MOUTH ONCE DAILY active Not Available Not Available No t Available dicyclomi ne 20 mg tablet 2020 active Medicati on ID: [id number] B rand Name: dicyclom ine Send Method: E-Prescr ibed Sub s Allowed: subs OK Medic ationGen ericName : dicyclom ine Not Available Not Available Not Available amitripty line 10 mg tablet TAKE 1 TABLET BY MOUTH ONCE DAILY WITH SUPPER active Not Available Not Available No t Available amlodipin e 10 mg tablet Take 1 tablet (10 mg total) by mouth 1 (one) time each day active Not Available Not Available No t Available cephalexi n 500 mg capsule TAKE 1 CAPSULE BY MOUTH two (2) times a day active Not Available Not Available No t Available nystatin 100,000 unit/gram topical cream APPLY TO THE AFFECTED AREA TOPICALL Y two (2) times a day NEEDED FOR RASH active Not Available Not Available No t Available lansopraz ole 30 mg capsule,d elayed release TAKE 1 CAPSULE BY MOUTH ONCE DAILY active Not Available Not Available No t Available docusate sodium 100 mg capsule 2020 active Medicati on ID: [id number] B rand Name: docusate sodium S end Method: E-Prescr ibed Sub s Allowed: subs OK Medic ationGen ericName : docusate sodium Not Available Not Available Not Available simethico ne 125 mg chewable tablet TAKE 1 CAPSULE BY MOUTH 4 (FOUR) TIMES DAILY NEEDED FOR ABDOMINA L PAIN active Not Available Not Available No t Available furosemid e 20 mg tablet Take 1 tablet (20 mg total) by mouth 1 (one) time each day active Not Available Not Available No t Available albuterol sulfate HFA 90 mcg/actua tion aerosol inhaler INHALE TWO PUFFS EVERY 4 HOURS NEEDED FOR WHEEZING active Not Available Not Available No t Available losartan 100 mg tablet TAKE 1 TABLET BY MOUTH ONCE DAILY active Not Available Not Available No t Available ipratropi um bromide 21 mcg (0.03 %) nasal spray 2020 active Medicati on ID: [id number] B rand Name: ipratrop ium bromide Send Method: E-Prescr ibed Sub s Allowed: subs OK Medic ationGen ericName : ipratrop ium bromide Not Available Not Available Not Available Vitamin D3 25 mcg (1,000 unit) tablet TAKE 1 TABLET BY MOUTH ONCE DAILY active Not Available Not Available No t Available topiramat e 50 mg tablet TAKE 2 TABLETS BY MOUTH IN THE MORNING and TAKE 3 TABLETS IN THE EVENING active Not Available Not Available No t Available Senexon 2019 active Medicati on ID: [id number] D uration Value: 30 Brand Name: True Send Method: E-Prescr ibed Sub s Allowed: subs ADENIKE Yip al Instruct ion: TAKE 2 TABLETS BY MOUTH ONCE A DAY AT BEDTIME NEEDED Eleonora Cosby Name: True Not Available Not Available Not Available Doc-Q-Lac e 05/28 completed Medicati on ID: [id number] D uration Value: 30 Brand Name: Doc-Q-La ce Send Method: E-Prescr ibed Sub s Allowed: subs OK Sumii al Instruct ion: TAKE ONE CAPSULE BY MOUTH 2 (two) times a day FOR CONSTIPA TION Med icationG enericNa me: Doc-Q-La ce Not Available Not Available Not Available budesonid e-formote rol HFA 160 mcg-4.5 mcg/actua tion aerosol inhaler INHALE 2 PUFFS BY MOUTH INTO THE lungs two (2) times a day active Not Available Not Available No t Available trospium ER 60 mg capsule,e xtended release 24 hr TAKE 1 CAPSULE BY MOUTH ONCE DAILY IN THE MORNING active Not Available Not Available No t Available diclofena c 1 % topical gel APPLY 2 grams TOPICALL Y 4 (FOUR) TIMES DAILY NEEDED FOR PAIN active Not Available Not Available No t Available D3-2000 50 mcg (2,000 unit) capsule 2019 active Medicati on ID: [id number] D uration Value: 30 Brand Name: D3 Send Method: E-Prescr ibed Sub s Allowed: subs ADENIKE Yip al Instruct ion: TAKE ONE CAPSULE BY MOUTH DAILY Me dication GenericN zoe: D3-2000 Not Available Not Available Not Available Cerovite Senior 0.4 mg-300 mcg-250 mcg tablet 2019 active Medicati on ID: [id number] D uration Value: 30 Brand Name: Cerovite Senior S end Method: E-Prescr ibed Sub s Allowed: subs OK Theodora al Instruct ion: TAKE ONE TABLET BY MOUTH ONCE A DAY Medi cationGe nericNam e: Cerovite Senior Not Available Not Available Not Available Linzess 145 mcg capsule TAKE 1 CAPSULE BY MOUTH EVERY MORNING active Not Available Not Available No t Available Farxiga 10 mg tablet Take 10 mg by mouth 1 (one) time each day in the morning active Not Available Not Available No t Available Linzess 72 mcg capsule 2019 active Medicati on ID: [id number] D uration Value: 30 Brand Name: Elías Send Method: E-Prescr ibed Sub s Allowed: subs OK Speci al Instruct ion: TAKE ONE CAPSULE BY MOUTH ONCE A DAY ON EMPTY STOMACH Medicati onGeneri cName: Linzess Not Available Not Available Not Available Gemtesa 75 mg tablet TAKE 1 TABLET BY MOUTH ONCE DAILY active Not Available Not Available No t Available iHeal COVID-19 Antigen Rapid Home Test kit USE DIRECTED active Not Available Not Available No t Available Vitals Date Recorded Body height Body mass index (BMI) Body weight Provider Name and Address Organization Details Last Updated DateTime 09/28/2023 154.94 cm 38.4 kg/m2 40770.25 g Pati Daly [place] - [facility] 09/28/2023 13:08:36 Social History None recorded. Functional Status None recorded. Mental Status None recorded. Family History Nothing Reported. Medical History No medical history recorded. Gynecological HistoryNo gynecological history recorded. Obstetrics History GPAL:G 0 P 0 0 0 0 Past Encounters Encounter ID Performer Location Encounter Start Date Encounter Closed Date Diagnosis/Indication Diagnosis SNOMED-CT Code Diagnosis ICD10 Code [id number] JIMENA HERRERA MD [facility] [address] [phone] 09/28/2023 13:02:32 09/28/2023 17:08:11 Mass of neck 452770329 R22.1 Health Concerns Section Related Observation LastModified by Organization Detai ls LastModified Time None Recorded Concern Status LastModified by Organization Details LastModified Time None Recorded Advance Directives Directive None Recorded Payers Encounter Date Sequence Insurance Name Policy Number Policy Ramsey Covered Member ID Ramsey Member ID Guarantor Name 09/28/2023 1 [facility] - DOS ON OR AFTER 2022 - ONE CARE (MEDICARE REPLACEMENT/ADV ANTAGE - HMO) Roxie Hobbs [id number] Roxie Hobbs Notes Date Note Type Note Provider Name and Address Organization Details Recorded Time 09/28/2023 text/html 58-year-old fema le presents today in follow-up after MRI. No concerns today. PV: 58-year-old female presents today for assessment after ultrasound for an enlarged lymph node. In January 2023 she had two nodes, 0.8 x 0.4 x 0.6 and 0.9 x 0.5 x 0.5. Her most recent ultrasound showed persistent node 0.7 x 0.4 x 0.6 and the submandibular node had resolved.She was last seen in our office in May 2020 for a stable parapharyngeal mass originally diagnosed in 2019. She had a repeat MRI ordered for 2021 but does not recall having this. JIMENA HERRERA MD [address] [place] [address], [place], [phone], [facility] - [facility] 10/07/2023 08:39:38 OBGyn Episode No OBEpisode recorded.
== END 2024-03-02 12:37 | disposition home or self-care (01) ==
PROVIDERS: PCP Internal Medicine; Visit Provider Nurse Practitioner
DX: K21.9 Gastro-esophageal reflux disease without esophagitis (principal); K22.70 Barrett's esophagus without dysplasia; K59.04 Chronic idiopathic constipation; M47.814 Spondylosis without myelopathy or radiculopathy, thoracic region
CPT/HCPCS: 99213

== ENCOUNTER → 2024-03-02 11:37 | Outpatient (BNVA) | payer OTHER, SELFPAY | PROVIDERS: PCP Internal Medicine; Visit Provider Nurse Practitioner | DX: K21.9 Gastro-esophageal reflux disease without esophagitis (principal); K22.70 Barrett's esophagus without dysplasia; K59.04 Chronic idiopathic constipation; M47.814 Spondylosis without myelopathy or radiculopathy, thoracic region | CPT/HCPCS: 99212 ==

== ENCOUNTER 2024-05-10 15:43 | Outpatient (AMB) | payer OTHER, SELFPAY ==
--- NOTE | 2024-05-10 15:48 | MHC.PC.OV ---
Vital Signs 05/10/24 16:06 Height 5 ft 1 in Weight 204 lb 8 oz BMI 38.6 BP 132/80 Blood Pressure Location Lt brachial Position Sitting Pulse 52 Pulse Source Pulse Oximeter Pulse Oximetry (%) 97 Oxygen Delivery Method Room Air Intake Visit Reasons: Right Ear issue Food Beverage Attendant Required: No Accompanied by: Self / Same As Patient Allergies diphenhydramine [From Benadryl] Allergy (Severe, Verified 05/10/24 16:24) Angioedema hydromorphone [From Dilaudid] Allergy (Intermediate, Verified 05/10/24 16:24) Increased BP FRANK Inhibitors [FRANK INHIBITORS] Allergy (Unknown, Verified 05/10/24 16:24) PER H&P codeine Allergy (Unknown, Verified 05/10/24 16:24) Rash meperidine Allergy (Unknown, Verified 05/10/24 16:24) Rash morphine Allergy (Unknown, Verified 05/10/24 16:24) RASH, DIFF BREATHING,CHEST PRESSURE, throat swelling TAPE,PLASTIC Allergy (Unknown, Uncoded 05/10/24 16:24) Rash Medication List - Last Reconciled 05/10/24 by Daryn Duarte MD [ADULT PULL UPS (medium) As directed - #60 / month (2 pull ups/day) with 12 refills] albuterol sulfate 90 mcg/actuation 2 puffs PO Q4H PRN amitriptyline 10 mg PO BEDTIME amlodipine 10 mg PO DAILY [BEDSIDE COMMODE As directed] [bladder pads As directed - #90/month (3 pads / day), with 12 refills] budesonide-formoterol 160-4.5 mcg/actuation 2 inhalations inhalation BID cholecalciferol (vitamin D3) 25 mcg PO DAILY [CPAP device As directed] dapagliflozin propanediol (Farxiga) 10 mg PO DAILY 90 days diclofenac sodium 1% (Arthritis Pain (diclofenac)) 2 grams topical QID PRN [foot pedal As directed] furosemide 20 mg PO DAILY [incontinence wipes As directed] lansoprazole 30 mg PO DAILY linaclotide (Linzess) 145 mcg PO QAM losartan 100 mg PO DAILY magnesium oxide 400 mg PO DAILY nystatin 1 appl topical BID PRN rizatriptan 10 mg PO Q2-4H PRN sennosides (Savanna-dean) 17.2 mg (2 x 8.6 mg) PO BEDTIME simethicone (Gas Relief Extra Strength) 125 mg PO QID PRN tirzepatide (weight loss) (Zepbound) 2.5 mg subcut QWEEK tizanidine 2 mg PO BID PRN topiramate 100 mg PO BID trospium ER 60 mg PO DAILY vibegron (Gemtesa) mg PO ONCE Tobacco use date assessed: 05/10/24 Dental Screening Dental Screen Date: 05/10/24 Did you have a dental visit in the last 12 months?: No Did you have a dental problem in the last 6 months where you did not have access to dental care?: No Was dental information given to patient?: No HPI Right Ear issue HPI Details Patient comes in today complaining of increased pain and discomfort in her right ear for the past 2 weeks Relates (+) sharp pains radiating from her right ear in to her head and down into her right jaw at times lately She denies any recent cough or cold symptoms and denies any right ear drainage She denies any fever, headaches or dizziness; denies any sore throat Denies any chest pains, no increased shortness of breath No nausea/vomiting, no abdominal pain No change in bowel habits noted She is also currently still experiencing increased pain in her right wrist and is requesting for a referral to go see Orthopedics at [facility] Medical History (Updated 05/16/24 @ 01:45 by Daryn Duarte MD) Family history of colonic polyps Left-sided low back pain with sciatica Benign essential hypertension Mid back pain on right side Edema Left hip pain Back pain Abdominal cramping Right lateral abdominal pain Right flank pain Pre-op examination Annual physical exam LEANNA treated with BiPAP RLQ abdominal tenderness Right flank pain Left elbow pain Left shoulder pain Urinary incontinence Breast calcification, right Chronic renal insufficiency Asthma Migraine Normal colonoscopy (~12/25/16) Obstructive sleep apnea Diverticulitis Vitamin D deficiency Hypertension Surgical History History of biopsy History of facial surgery History of carpal tunnel repair History of nasal surgery History of ankle surgery (~2012) History of cryosurgery History of pubovaginal sling Hx of hernia repair History of bilateral tubal ligation Hx laparoscopic cholecystectomy (~2001) History of esophagogastroduodenoscopy Hx of colonoscopy Family History Mother High blood pressure Diabetes Arthritis Father Diabetes Kidney disease Heart disease Brother Diabetes Maternal Aunt Cancer of breast Brother Colon cancer, Onset Age: 57 Maternal Grandmother Cancer of breast Social History Household Members: None Housing: Apartment Alcohol intake: current Alcohol intake frequency: a few times a month Alcohol type: wine and hard liquor Patient Tobacco Use Status: Former Tobacco user Tobacco use type: Cigarette Years Smoked: 7 e-Cigarette/Vaping Use: Never Used Second Hand Smoke Exposure: No service: No Current occupational status: disabled Cognitive needs: No Hearing needs: No Vision needs: Yes Female Reproductive History Menstrual Age of Menarche: 13 Questionnaire PHQ-9 Over the last 2 weeks, how often have you been bothered by any of the following problems? 1. Little interest or pleasure in doing things: not at all 2. Feeling down, depressed, or hopeless: not at all 3. Trouble falling or staying asleep, or sleeping too much: not at all 4. Feeling tired or having little energy: not at all 5. Poor appetite or overeating: not at all 6. Feeling bad about yourself - or that you are a failure or have let yourself or your family down: not at all 7. Trouble concentrating on things, such as reading the newspaper or watching television: not at all 8. Moving or speaking so slowly that other people could have noticed. Or the opposite - being so fidgety or restless that you have been moving around a lot more than usual: not at all 9. Thoughts that you would be better off or of hurting yourself in some way: not at all Total score: 0 Depression Screening Interpretation: Negative Depression Screening Done: Yes 31709 - PHQ-9 Billing: Yes Source: Developed by Drs. Loi Fan, Lucia Lua, Trevor Lynch and colleagues, with an educational dion from [employer]. Thrive Questionnaire Date Thrive assessed: 05/10/24 I am a: Patient What is your living situation today?: I have a steady place to live Within the past 12 months, did the food you bought not last and you didn't have the money to get more?: Never true Within the past 12 months, did you worry whether your food would run out before you got money to buy more?: Never true Do you have trouble paying for medicines?: No Do you have trouble getting transportation to medical appointments?: No Do you have trouble paying your heating and electricity bill?: No Do you have trouble taking care of your child, family member or friend?: No Do you have trouble with day-to-day activities such as bathing, preparing meals, shopping, managing finances, etc.?: No Are you currently unemployed and looking for a job?: No Are you interested in more education?: No Please select the resources that you would like help with: None Currently or been in a relationship where the following occur: No concerns reported THRIVE Score: 0 AUDIT C Alcohol Use Questionnaire (AUDIT-C) 1. How often do you have a drink containing alcohol?: Never 3. How often do you have six or more drinks on one occasion?: Never Total Score: 0 Score Reviewed/Action Taken: Yes JACOB-7 AMB Questionnaire JACOB-7 Date JACOB - 7 assessed: 05/10/24 Feeling nervous, anxious, or on edge: 0 = Not at all Not being able to stop or control worryin = Not at all Worrying too much about different things: 0 = Not at all Trouble relaxin = Not at all Being so restless that it is hard to sit still: 0 = Not at all Becoming easily annoyed or irritable: 0 = Not at all Feeling afraid as if something awful might happen: 0 = Not at all Total JACOB-7 score (0-4 normal; 5-9 mild; 10-14 moderate; 15-21 severe): 0 Source: Developed by Drs. Loi Fan, Lucia Lua, Trevor Lynch and colleagues, with an educational dion from [employer]. Review of Systems Const Denies chills, Reports fatigue, Denies fever(s) and Denies headache(s) ENT Denies dysphagia, Denies dizziness, Denies ear discharge, Reports otalgia (in the right ear - see HPI), Denies headache(s), Denies neck pain, Denies odynophagia and Denies sore throat Card Denies chest pain, Denies irregular heart rhythm, Denies palpitations and Reports dyspnea on exertion (mild) Resp Denies chest congestion, Denies cough and Reports dyspnea on exertion (mild) GI Denies abdominal pain, Denies constipation, Denies dysphagia, Denies heartburn, Denies diarrhea, Denies nausea, Denies odynophagia and Denies vomiting Denies difficulty voiding, Denies nocturia, Denies dysuria, Reports urinary incontinence (at times) and Denies urinary urgency Musc Reports back pain (more on the left side), Reports arthralgias (increased pain in both knees; right wrist ), Reports muscle cramps (in both legs, with increased activity or walking), Denies neck pain and Reports radiating pain into limb (down her left leg) Skin/Breast Denies rash Neuro Denies dizziness, Denies headache(s) and Denies paresthesias Psych Denies anxiety Endo Reports fatigue and Denies palpitations Physical exam (Primary Care) Vital Signs: Last Vital Signs Pulse 52 05/10/24 16:06 BP 132/80 05/10/24 16:06 Pulse Ox 97 05/10/24 16:06 Oxygen Delivery Method Room Air 05/10/24 16:06 BMI result Body Mass Index 38.6 Tobacco/Smoking Status: Tobacco use Status Tobacco use date assessed 05/10/24 05/10/24 16:11 Patient Tobacco Use Status Former Tobacco user 05/10/24 15:48 Tobacco use type Cigarette 05/10/24 15:48 e-Cigarette/Vaping Use Never Used 05/10/24 15:48 PHQ-9: PHQ-9 Score PHQ-9: Total score 0 05/10/24 16:27 Depression Screening Interpretation: Negative Thrive Assessment: Date of Thrive Assessment Date Thrive assessed 05/10/24 05/10/24 16:11 Currently or been in a relationship where the following occur: No concerns reported Const General: no acute distress and alert HENMT Ears: TM normal on the left, EAC's normal and TM abnormal with fluid behind the TM on the right Throat: Yes posterior oropharynx normal and Yes tonsils normal Neck Neck: Yes no lymphadenopathy and Yes supple Thyroid: Thyroid normal Resp Auscultation: clear to auscultation bilaterally, no rales and no wheezes Cardio Rate: regular rate Rhythm: regular rhythm Heart sounds: no murmurs GI Palpation (GI): Soft to palpation and nontender Auscultation: normal bowel sounds General: Yes no CVA tenderness Back/Spine/Pelvis Back: no CVA tenderness Thoracic/Lumbar Spine: thoracic spinal tenderness (over the lower half of the thoracic spine) and lumbar spinal tenderness Skin Rashes: no rashes Extrem General: No clubbing, No cyanosis and Yes pedal edema (trace edema, bilateral) Right lower extremity: knee Details: tenderness Left lower extremity: hip/thigh Details: no tenderness and knee Details: tenderness Coding Level of Care Code Est Pt Level 3 (71427) Diagnoses Right otitis media, unspecified otitis media type H66.91 Otitis media type: unspecified Right wrist pain M25.531 Additional Codes PHQ-9 - 69143 - PHQ-9 Billing: Yes ([id number]) Assessment & Plan Assessment & Plan (1) Otitis media of right ear: Code(s): H66.91 - Otitis media, unspecified, right ear Category: Medical Qualifiers: Otitis media type: unspecified Qualified Code(s): H66.91 - Otitis media, unspecified, right ear Plan: Will start patient on Augmentin 875 mg BID x 10 days (2) Right wrist pain: Code(s): M25.531 - Pain in right wrist Category: Medical Plan: Patient has suffered a right distal radial fracture of the right wrist back in October 2023 but she apparently did not require surgery Her wrist was placed in a cast for several weeks She is currently still experiencing increased pain in her right wrist, she is requesting for a referral to go back to [facility] for further evaluation/management - referral placed Plan To return as scheduled next month for her annual physical examination Orders: Referrals Orthopedics Referral M25.531 - Pain in right wrist Medications: New amoxicillin-pot clavulanate 875-125 mg 1 tab PO BID 10 days 20 tabs 0RF otitis media R ear
[2024-05-10 16:06] VITALS: BP 132/80; PULSE 52; O2SAT 97; BMI 38.6
--- OUTSIDE RECORDS SUMMARY | 2024-05-10 16:17 | XMS_ITS | Encounter Summary ---
Author Organization [facility] Address [address] [place] [address] Care Team Providers Care Organic Chemistry Teacher Name Role Phone Daryn Duarte MD Primary Care Provider [phone] Reason for Visit * Reason Onset Date Comments Prior auth 04/21/2024 Prior auth Encounter Details Date Type Department Care Team (Late st Contact Info) Description 04/21/2024 Telephone Bariatric Surgery - [place] [address] [facility] [address] [place] [phone] Tavon Galdamez MD [address] [facility] [address] [place] [address] Prior auth (Prior auth) Social History Tobacco Use Types Packs/Day Years Used Date Smoking Tobacco: Never Assessed Comments Unknown Sex and Gender Information Value Date Recorded Sex Assigned at Female 05/22/2022 2:55 AM EST Legal Sex Female 5:03 AM EST Gender Identity Female 05/22/2022 2:55 AM EST Sexual Orientation Not on file documented as of this encounter Progress Notes * Gris Lua - 04/21/2024 2:16 PM EST Patient needs a PA documented in this encounter Plan of Treatment Upcoming Encounters Date Type Department Care Team (Late st Contact Info) Description 05/30/2024 1:30 PM EST Nutrition Bariatric Surgery - [place] [address] [phone] [id number] 08/23/2024 10:00 AM EDT Office Visit Bariatric Surgery - [place] [address] [phone] Tavon Galdamez MD [address] [id number] documented as of this encounter Visit Diagnoses Not on filedocumented in this encounter Care Teams Organic Chemistry Teacher Relationship Specialty Start Date End Date Daryn Duarte MD [address] [place] [address] [address] [place], [place] PCP - General Internal Medicine 05/21/17 documented as of this encounter
--- OUTSIDE RECORDS SUMMARY | 2024-05-10 16:17 | XMS_ITS | Encounter Summary ---
Author Organization [place] [address] Care Team Providers Care Cutting Tool Sharpener Name Role Phone Daryn Duarte MD Primary Care Provider [phone] Encounter Details Date Type Department Care Team (Late Contact Info) Description 04/18/2024 8:45 AM EST Lab Draw Station - [address] [facility] [address] [facility] [address] [place] [address] Class 2 obesity with body mass index (BMI) of 39.0 to 39.9 in adult, unspecified obesity type, unspecified whether serious comorbidity present Social History Tobacco Use Types Packs/Day Years Used Date Smoking Tobacco: Never Assessed Comments Unknown Sex and Gender Information Value Date Recorded Sex Assigned at Female 05/22/2022 2:55 AM EST Legal Sex Female 5:03 AM EST Gender Identity Female 05/22/2022 2:55 AM EST Sexual Orientation Not on file documented as of this encounter Ordered Prescriptions Prescription Sig Dispense Quantity Refills Last Filled Start Date End Date ferrous sulfate 325 mg (65 mg iron) EC tablet Take 1 tablet (325 mg total) by mouth 3 (three) times a day with meals. Do not crush, chew, or split. 90 each 2 04/20/2024 07/19/2024 documented in this encounter Plan of Treatment Upcoming Encounters Date Type Department Care Team (Late st Contact Info) Description 05/30/2024 1:30 PM EST Nutrition Bariatric Surgery - [place] [address] [address] Yun Hernandez, SHIRA [address] [address] 08/23/2024 10:00 AM EDT Office Visit Bariatric Surgery - [place] [address] [address] Tavon Galdamez MD [address] [address] Scheduled Orders Name Type Priority Associated Diagnoses Orde r Schedule Thyroid stimulating hormone with reflex to free t4 and free t3 Lab Routine Class 2 obesity with body mass index (BMI) of 39.0 to 39.9 in adult, unspecified obesity type, unspecified whether serious comorbidity present 1 Occurrences starting 04/20/2024 until 04/20/2025 documented as of this encounter Procedures Procedure Name Priority Date/Time Associated Diagnosis Comments LIPID PANEL WITH REFLEX TO DIRECT LDL Routine 04/18/2024 8:43 AM EST Class 2 obesity with body mass index (BMI) of 39.0 to 39.9 in adult, unspecified obesity type, unspecified whether serious comorbidity present NICOTINE AND COTININE Routine 04/18/2024 8:43 AM EST Class 2 obesity with body mass index (BMI) of 39.0 to 39.9 in adult, unspecified obesity type, unspecified whether serious comorbidity present CBC WITH AUTO DIFFERENTIAL Routine 04/18/2024 8:43 AM EST Class 2 obesity with body mass index (BMI) of 39.0 to 39.9 in adult, unspecified obesity type, unspecified whether serious comorbidity present IRON AND TIBC Routine 04/18/2024 8:43 AM EST Class 2 obesity with body mass index (BMI) of 39.0 to 39.9 in adult, unspecified obesity type, unspecified whether serious comorbidity present VITAMIN D 25 HYDROXY Routine 04/18/2024 8:43 AM EST Class 2 obesity with body mass index (BMI) of 39.0 to 39.9 in adult, unspecified obesity type, unspecified whether serious comorbidity present CBC AND DIFFERENTIAL Routine 04/18/2024 8:43 AM EST Class 2 obesity with body mass index (BMI) of 39.0 to 39.9 in adult, unspecified obesity type, unspecified whether serious comorbidity present THYROID STIMULATING HORMONE Routine 04/18/2024 8:43 AM EST Class 2 obesity with body mass index (BMI) of 39.0 to 39.9 in adult, unspecified obesity type, unspecified whether serious comorbidity present VITAMIN B1 Routine 04/18/2024 8:43 AM EST Class 2 obesity with body mass index (BMI) of 39.0 to 39.9 in adult, unspecified obesity type, unspecified whether serious comorbidity present MAGNESIUM Routine 04/18/2024 8:43 AM EST Class 2 obesity with body mass index (BMI) of 39.0 to 39.9 in adult, unspecified obesity type, unspecified whether serious comorbidity present HEMOGLOBIN A1C Routine 04/18/2024 8:43 AM EST Class 2 obesity with body mass index (BMI) of 39.0 to 39.9 in adult, unspecified obesity type, unspecified whether serious comorbidity present FOLATE Routine 04/18/2024 8:43 AM EST Class 2 obesity with body mass index (BMI) of 39.0 to 39.9 in adult, unspecified obesity type, unspecified whether serious comorbidity present FERRITIN Routine 04/18/2024 8:43 AM EST Class 2 obesity with body mass index (BMI) of 39.0 to 39.9 in adult, unspecified obesity type, unspecified whether serious comorbidity present VITAMIN B12 Routine 04/18/2024 8:43 AM EST Class 2 obesity with body mass index (BMI) of 39.0 to 39.9 in adult, unspecified obesity type, unspecified whether serious comorbidity present CORTISOL Routine 04/18/2024 8:43 AM EST Class 2 obesity with body mass index (BMI) of 39.0 to 39.9 in adult, unspecified obesity type, unspecified whether serious comorbidity present COMPREHENSIVE METABOLIC PANEL Routine 04/18/2024 8:43 AM EST Class 2 obesity with body mass index (BMI) of 39.0 to 39.9 in adult, unspecified obesity type, unspecified whether serious comorbidity present documented in this encounter Results * (ABNORMAL) CBC auto differential (04/18/2024 8:43 AM EST) [facility] WBC 5.9 4.8 - 10.8 K/mcL LAB HEMETOLOGY METHOD 04/18/2024 9:51 AM [facility] RBC 4.70 3.80 - 4.80 M/mcL LAB HEMETOLOGY METHOD 04/18/2024 9:51 AM [facility] Hemoglobin 13.7 11.5 - 16.0 g/dL LAB HEMETOLOGY METHOD 04/18/2024 9:51 AM [facility] Hematocrit 44.0 35.0 - 47.0 % LAB HEMETOLOGY METHOD 04/18/2024 9:51 AM [facility] MCV 93.2 79.0 - 98.0 FL LAB HEMETOLOGY METHOD 04/18/2024 9:51 AM [facility] MCH 29.0 27.0 - 32.0 pcg LAB HEMETOLOGY METHOD 04/18/2024 9:51 AM [facility] MCHC 31.1(L) 32.0 - 37.0 g/dL LAB HEMETOLOGY METHOD 04/18/2024 9:51 AM [facility] RDW 13.7 11.0 - 15.0 % LAB HEMETOLOGY METHOD 04/18/2024 9:51 AM [facility] Platelets 190 130 - 400 K/mcL LAB HEMETOLOGY METHOD 04/18/2024 9:51 AM [facility] MPV 11.0 7.0 - 11.0 FL LAB HEMETOLOGY METHOD 04/18/2024 9:51 AM [facility] NRBC 0.0 <1.0 % LAB HEMETOLOGY METHOD 04/18/2024 9:51 AM [facility] NRBC Absolute 0.00 <0.10 K/mcL LAB HEMETOLOGY METHOD 04/18/2024 9:51 AM [facility] Neutrophils Relative 59.9 % LAB HEMETOLOGY METHOD 04/18/2024 9:51 AM [facility] Lymphocytes Relative 28.2 % LAB HEMETOLOGY METHOD 04/18/2024 9:51 AM [facility] Monocytes Relative 7.9 % LAB HEMETOLOGY METHOD 04/18/2024 9:51 AM [facility] Eosinophils Relative 3.2 % LAB HEMETOLOGY METHOD 04/18/2024 9:51 AM [facility] Basophils Relative 0.5 % LAB HEMETOLOGY METHOD 04/18/2024 9:51 AM [facility] Immature Granulocytes Relative 0.3 % LAB HEMETOLOGY METHOD 04/18/2024 9:51 AM [facility] Neutrophils Absolute 3.55 1.50 - 7.00 K/mcL LAB HEMETOLOGY METHOD 04/18/2024 9:51 AM [facility] Lymphocytes Absolute 1.67 1.00 - 5.00 K/mcL LAB HEMETOLOGY METHOD 04/18/2024 9:51 AM [facility] Monocytes Absolute 0.47 0.20 - 1.00 K/mcL LAB HEMETOLOGY METHOD 04/18/2024 9:51 AM [facility] Eosinophils Absolute 0.19 0.00 - 0.50 K/[facility] LAB HEMETOLOGY METHOD 04/18/2024 9:51 AM EST [facility] Basophils Absolute 0.03 0.00 - 0.20 K/[facility] LAB HEMETOLOGY METHOD 04/18/2024 9:51 AM EST [facility] Immature Granulocytes Absolute 0.02 0.00 - 0.03 K/[facility] LAB HEMETOLOGY METHOD 04/18/2024 9:51 AM EST [facility] Blood Venous blood specimen / Unknown Venipuncture / Unknown 04/18/2024 8:43 AM EST 04/18/2024 8:44 AM EST us Haydee sEpinosa MD LAB BLOOD ORDERABLES Fi nal Result Performing Organization Address City/[facility]/ZIP Co de Phone Number [facility] [address] [place] [address], [place] [phone] * Vitamin D 25 hydroxy (04/18/2024 8:43 AM EST) Vit D, 25-Hydroxy 31.6 30.0 - 80.0 ng/mL LAB CHEMISTRY METHOD 04/18/2024 10:29 AM EST [facility] Blood Venous blood specimen / Unknown Venipuncture / Unknown 04/18/2024 8:43 AM EST 04/18/2024 8:44 AM EST Haydee Espinosa MD LAB BLOOD ORDERABLES Fi nal Result [facility] [address] [place] [address], [place] [phone] * Vitamin B12 (04/18/2024 8:43 AM EST) Vitamin B-12 316 250 - 900 pcg/mL LAB CHEMISTRY METHOD 04/18/2024 10:44 AM EST [facility] Blood Venous blood specimen / Unknown Venipuncture / Unknown 04/18/2024 8:43 AM EST 04/18/2024 8:44 AM EST us Haydee Espinosa MD LAB BLOOD ORDERABLES Fi nal Result Performing Organization Address [facility] de Phone Number [facility] [address] [place] [address], * Vitamin B1 (04/18/2024 8:43 AM EST) Vitamin B1 Whole Blood 88 38 - 122 ug/L 04/22/2024 4:47 AM EST [facility] Comment: This test was developed and the performance characteristics determined by [facility]. It has not been cleared or approved by the FDA. The laboratory is regulated under CLIA as qualified to perform high-complexity testing. This test is used for patient testing purposes. It should not be regarded as investigational or for research. Test performed at [facility], [address] [place], [place] ??[address] ? [phone] Faiza Narvaez MD, PhD - Computer Science Professor Blood Venous blood specimen / Unknown Venipuncture / Unknown 04/18/2024 8:43 AM EST 04/18/2024 8:44 AM EST us Haydee Espinosa MD LAB BLOOD ORDERABLES Fi nal Result Performing Organization Address City/[facility] Co de Phone Number [facility] [address] [place] [address] * (ABNORMAL) Thyroid stimulating hormone (04/18/2024 8:43 AM EST) TSH 4.79(H) 0.40 - 4.00 mcIU/mL LAB CHEMISTRY METHOD 04/18/2024 10:30 AM EST [facility] Blood Venous blood specimen / Unknown Venipuncture / Unknown 04/18/2024 8:43 AM EST 04/18/2024 8:44 AM EST us Haydee Espinosa MD LAB BLOOD ORDERABLES Fi nal Result [facility] [address] [place] [address], * Nicotine and cotinine (04/18/2024 8:43 AM EST) Nicotine <2.0 <2.0 ng/mL 04/23/2024 9:59 AM EST [facility] Cotinine <2.0 <2.0 ng/mL 04/23/2024 9:59 AM EST [facility] Comment: ?Additional Reference Ranges: ? Active Tobacco ? Passive ? Abstinence ?User ?Exposure ?? 2 Weeks and more ? Nicotine ?30 - 50 ??ng/mL ?<2 ng/mL ?<2 ng/mL Cotinine ?? 200 - 800 ng/mL ?<8 ng/mL ?<2 ng/mL Reference Ranges from: ??Clin. Chem.; ??[id number] (2002) Direct any interpretive questions to the toxicology laboratory. This is for medical use only, it is not intended for forensic use. If applicable, any drug confirmation testing reported here was developed and the performance characteristics determined by [facility]. This confirmation testing has not been cleared or approved by the FDA. The laboratory is regulated under CLIA as qualified to perform high-complexity testing. This test is used for patient testing purposes. It should not be regarded as investigational or for research. Test performed at [facility], [address] , [place], [place] ??[address] ? [phone] Faiza Narvaez MD, PhD - Computer Science Professor Blood Venous blood specimen / Unknown Venipuncture / Unknown 04/18/2024 8:43 AM EST 04/18/2024 8:44 AM EST Haydee Espinosa MD LAB BLOOD ORDERABLES Fi nal Result [facility] [address] [place] [address] * (ABNORMAL) Magnesium (04/18/2024 8:43 AM EST) Magnesium 1.8(L) 1.9 - 2.6 mg/dL LAB CHEMISTRY METHOD 04/18/2024 10:22 AM EST [facility] Blood Venous blood specimen / Unknown Venipuncture / Unknown 04/18/2024 8:43 AM EST 04/18/2024 8:44 AM EST us Haydee Espinosa MD LAB BLOOD ORDERABLES Fi nal Result Performing Organization Address City/[facility]/ZIP Co de Phone Number [facility] [address] [place] [address], * (ABNORMAL) Lipid panel with reflex to direct LDL (04/18/2024 8:43 AM EST) Cholesterol 181 0 - 200 mg/dL LAB CHEMISTRY METHOD 04/18/2024 10:22 AM EST [facility] Triglycerides 90 0 - 150 mg/dL LAB CHEMISTRY METHOD 04/18/2024 10:22 AM EST [facility] HDL 58 >=40 mg/dL LAB CHEMISTRY METHOD 04/18/2024 10:22 AM EST [facility] LDL Calculated 105(H) 0 - 100 mg/dL LAB CHEMISTRY METHOD 04/18/2024 10:22 AM EST [facility] VLDL Cholesterol Gerhard 18 mg/dL LAB CHEMISTRY METHOD 04/18/2024 10:22 AM [facility] Non HDL Chol. (LDL+VLDL) 123 <145 mg/dL LAB CHEMISTRY METHOD 04/18/2024 10:22 AM [facility] Chol/HDL Ratio 3.1 0.0 - 4.4 LAB CHEMISTRY METHOD 04/18/2024 10:22 AM [facility] Blood Venous blood specimen / Unknown Venipuncture / Unknown 04/18/2024 8:43 AM EST 04/18/2024 8:44 AM EST us Haydee Espinosa MD LAB BLOOD ORDERABLES Fi nal Result Performing Organization Address City/[facility]/ZIP Co de Phone Number [facility] [address] [place] [address], [place] [phone] * (ABNORMAL) Iron and TIBC (04/18/2024 8:43 AM EST) Iron 37(L) 40 - 150 mcg/dL LAB CHEMISTRY METHOD 04/18/2024 10:22 AM [facility] TIBC 321 250 - 450 mcg/dL LAB CHEMISTRY METHOD 04/18/2024 10:22 AM EST [facility] Iron Saturation 12(L) 15 - 50 % LAB CHEMISTRY METHOD 04/18/2024 10:22 AM EST [facility] Blood Venous blood specimen / Unknown Venipuncture / Unknown 04/18/2024 8:43 AM EST 04/18/2024 8:44 AM EST us Haydee Espinosa MD LAB BLOOD ORDERABLES Fi nal Result [facility] [address] [place] [address], [place] [phone] * Hemoglobin A1c (04/18/2024 8:43 AM EST) [facility] Hemoglobin A1C 6.1 <6.5 % LAB CHEMISTRY METHOD 04/18/2024 1:32 PM EST [facility] Mean Bld Glu Estim. 128 mg/dL LAB CHEMISTRY METHOD 04/18/2024 1:32 PM EST [facility] Blood Venous blood specimen / Unknown Venipuncture / Unknown 04/18/2024 8:43 AM EST 04/18/2024 8:44 AM EST us Haydee Espinosa MD LAB BLOOD ORDERABLES Fi nal Result Performing Organization Address City/[facility]/ZIP Co de Phone Number [facility] [address] [place] [address], [place] [phone] * (ABNORMAL) Folate (04/18/2024 8:43 AM EST) [facility] Folate >20.0(H) 2.8 - 17.0 ng/ml LAB CHEMISTRY METHOD 04/18/2024 10:44 AM EST [facility] Blood Venous blood specimen / Unknown Venipuncture / Unknown 04/18/2024 8:43 AM EST 04/18/2024 8:44 AM EST Haydee Espinosa MD LAB BLOOD ORDERABLES Fi nal Result [facility] [address] [place] [address], [place] [phone] * Ferritin (04/18/2024 8:43 AM EST) [facility] Ferritin 52 8 - 252 ng/mL LAB CHEMISTRY METHOD 04/18/2024 10:22 AM EST [facility] Blood Venous blood specimen / Unknown Venipuncture / Unknown 04/18/2024 8:43 AM EST 04/18/2024 8:44 AM EST us Haydee Espinosa MD LAB BLOOD ORDERABLES Fi nal Result Performing Organization Address [facility] de Phone Number [facility] [address] [place] [address], * Cortisol (04/18/2024 8:43 AM EST) Cortisol 11.6 mcg/dL LAB CHEMISTRY METHOD 04/18/2024 10:30 AM EST [facility] Blood Venous blood specimen / Unknown Venipuncture / Unknown 04/18/2024 8:43 AM EST 04/18/2024 8:44 AM EST Narrative [facility] - 04/18/2024 10:30 AM EST CORTISOL REFERENCE RANGE ?? 8 AM SPEC: ??5.0-23.0 mcg/dL ?? 4 PM SPEC: ??3.0-16.0 mcg/dL ?? 8 PM SPEC: ??<5.0 mcg/dL us Haydee Espinosa MD LAB BLOOD ORDERABLES Fi nal Result Performing Organization Address [facility] de Phone Number [facility] [address] [place] [address], [place] [phone] * (ABNORMAL) Comprehensive metabolic panel (04/18/2024 8:43 AM EST) Sodium 140 133 - 145 mmol/L LAB CHEMISTRY METHOD 04/18/2024 10:22 AM EST [facility] Potassium 4.6 3.5 - 5.5 mmol/L LAB CHEMISTRY METHOD 04/18/2024 10:22 AM EST [facility] Chloride 106 96 - 110 mmol/L LAB CHEMISTRY METHOD 04/18/2024 10:22 AM EST [facility] CO2 30 21 - 32 mmol/L LAB CHEMISTRY METHOD 04/18/2024 10:22 AM [facility] Anion Gap 4 3 - 11 LAB CHEMISTRY METHOD 04/18/2024 10:22 AM [facility] Glucose 90 70 - 100 mg/dL LAB CHEMISTRY METHOD 04/18/2024 10:22 AM [facility] BUN 31(H) 5 - 25 mg/dL LAB CHEMISTRY METHOD 04/18/2024 10:22 AM [facility] Creatinine 2.11(H) 0.50 - 1.10 mg/dL LAB CHEMISTRY METHOD 04/18/2024 10:22 AM [facility] eGFR 27(L) >=60 mL/min/1. 73m2 LAB CHEMISTRY METHOD 04/18/2024 10:22 AM [facility] Comment:Calculation based on the??Chronic Kidney Disease Epidemiology Collaboration (CKD-EPI) equation refit??without adjustment for race. BUN/Creatinine Ratio 14.7 LAB CHEMISTRY METHOD 04/18/2024 10:22 AM [facility] Calcium 9.2 8.5 - 10.5 mg/dL LAB CHEMISTRY METHOD 04/18/2024 10:22 AM [facility] AST (SGOT) 18 10 - 42 unit/L LAB CHEMISTRY METHOD 04/18/2024 10:22 AM [facility] ALT (SGPT) 21 10 - 60 unit/L LAB CHEMISTRY METHOD 04/18/2024 10:22 AM [facility] Alkaline Phosphatase 112 42 - 121 unit/L LAB CHEMISTRY METHOD 04/18/2024 10:22 AM [facility] Total Protein 6.5 6.0 - 8.0 g/dL LAB CHEMISTRY METHOD 04/18/2024 10:22 AM [facility] Albumin 3.4 3.2 - 5.0 g/dL LAB CHEMISTRY METHOD 04/18/2024 10:22 AM [facility] Total Bilirubin 0.2 0.0 - 1.4 mg/dL LAB CHEMISTRY METHOD 04/18/2024 10:22 AM EST [facility] Blood Venous blood specimen / Unknown Venipuncture / Unknown 04/18/2024 8:43 AM EST 04/18/2024 8:44 AM EST us Haydee Espinosa MD LAB BLOOD ORDERABLES Fi nal Result [facility] [address] [place] [address], [place] [phone] documented in this encounter Visit Diagnoses Diagnosis Class 2 obesity with body mass index (BMI) of 39.0 to 39.9 in adult, unspecified obesity type, unspecified whether serious comorbidity present documented in this encounter Care Teams Cutting Tool Sharpener Relationship Specialty Start Date End Date Daryn Duarte MD [address] [place] [address] Dr Molina [facility] [place], [place] PCP - General Internal Medicine 05/21/17 documented as of this encounter
--- OUTSIDE RECORDS SUMMARY | 2024-05-10 16:17 | XMS_ITS | Clinical Summary ---
Author Organization [facility] Address [address] [place] [address] Phone Care Team Providers Care Automatic Pinsetter Mechanic Name Role Phone Daryn Duarte MD Primary Care Provider [phone]- [phone] Allergies Active Allergy Reactions Criticality Noted Date Comments Vu Inhibitors Other (see comments) 06/01/2020 Diphenhydramine 04/17/2021 Hydromorphone 10/25/2019 Meperidine 04/17/2021 Morphine Other (see comments) 10/25/2019 Medications albuterol HFA (PROVENTIL HFA;VENTOLIN HFA) 108 (90 Base) MCG/ACT inhaler Active topiramate (TOPAMAX) 50 MG tablet Take 3 tablets by mouth 1 (one) time each day Active dicyclomine (BENTYL) 20 MG tablet TAKE ONE TABLET BY MOUTH 3 (THREE) TIMES A DAY 1 Active budesonide-form oterol (SYMBICORT) 160-4.5 MCG/ACT inhaler INHALE 2 PUFFS BY MOUTH INTO THE lungs 2 (two) times a day (IN THE MORNING AND IN THE EVENING). USE WITH spacer chamber. rinse mouth and throat after use 1 Active docusate sodium (COLACE) 100 MG capsule TAKE ONE CAPSULE BY MOUTH 2 (two) times a day FOR CONSTIPATION 1 Active magnesium oxide (MAG-OX) 400 MG tablet Take 1 tablet by mouth 1 (one) time each day 1 Active rizatriptan (MAXALT) 10 MG tablet TAKE ONE TABLET BY MOUTH DAILY NEEDED for migraine HEADACHE. MAY REPEAT DOSE ONCE IN 2 HOURS 1 Active senna (SENOKOT) 8.6 MG tablet Take 2 tablets by mouth every night 1 Active Linzess 145 MCG capsule Take 1 capsule by mouth every morning 2 Active simethicone (MYLICON,GAS-X) 180 MG capsule Take 1 capsule by mouth in the morning and 1 capsule at noon and 1 capsule in the evening and 1 capsule before bedtime. 2 Active ipratropium (ATROVENT) 0.03 % nasal spray SPRAY ONCE INTO EACH NOSTRIL 2 (two) times a day NEEDED FOR nasal CONGESTION 2 Active furosemide (LASIX) 20 MG tablet Take 1 tablet (20 mg total) by mouth 1 (one) time each day 30 tablet 11 2 Active Cholecalciferol (Vitamin D3) 250 MCG (64597 UT) tablet Take by mouth Activ e tiZANidine (ZANAFLEX) 2 MG tablet Take 2 mg by mouth every 6 (six) hours if needed for muscle spasms Active Dapagliflozin Propanediol (Farxiga) 10 MG tablet Take 10 mg by mouth 1 (one) time each day in the morning 30 tablet 11 3 Active amLODIPine (NORVASC) 10 MG tablet Take 1 tablet (10 mg total) by mouth 1 (one) time each day 30 tablet 11 3 Active losartan (COZAAR) 50 MG tablet Take 1 tablet (50 mg total) by mouth in the morning and 1 tablet (50 mg total) in the evening. 30 tablet 4 4 Active Active Problems Problem Noted Date Diagnosed Date Body mass index 30+ - obesity 04/17/2021 Daytime somnolence 04/17/2021 Dysthymia 04/17/2021 Female stress incontinence 04/17/2021 Obstructive sleep apnea of adult 04/17/2021 Osteoarthritis 04/17/2021 Postcoital bleeding 04/17/2021 Seizure 04/17/2021 Overview (04/17/2021): states last attack was in 2011 Chronic glomerulonephritis 06/01/2020 Chronic kidney disease stage 1 06/01/2020 Nephrotic syndrome with foca l and segmental glomerular lesions 06/01/2020 Stage 3a chronic kidney disease 06/01/2020 Other secondary hypertension 06/01/2020 Resolved Problems Problem Noted Date Diagnosed Date Resolved Date Hypertensive chronic kidney disease, unspecified, with chronic kidney disease stage I through stage IV, or unspecified 06/01/2020 12/31/2022 Family History Medical History Relation Comments Diabetes Father Heart disease Father Hypertension Father Kidney disease Father Diabetes Mother Heart disease Mother Hypertension Mother Heart disease Sibling 1 brother Hypertension Sibling 2 brother Kidney disease Sibling 3 2 brothers on di alysis Diabetes Sibling 4 2 brothers Relation Status Comments Father Mother Alive Sibling 1 Sibling 2 Sibling 3 Sibling 4 Social History Tobacco Use Types Packs/Day Years Used Date Smoking Tobacco: Former Smokeless Tobacco: Never Tobacco Cessation:Counseling Given: Not Answered Comments:Smoking History Info:Every day Alcohol Use Standard Drinks/Week Comments Yes 0 (1 standard drink = 0.6 oz pure alcohol) Alcoholic Drinks/day: Occasional social drink Comments Unknown Sex and Gender Information Value Date Recorded Sex Assigned at Female 09/17/2022 12:13 PM EDT Legal Sex Female 5:04 PM EST Gender Identity Female 09/17/2022 12:13 PM EDT Sexual Orientation Straight 09/17/2022 12 :13 PM EDT Last Filed Vital Signs Vital Sign Reading Time Taken Comments Blood Pressure 140/88 12/31/2022 3:24 PM EDT Pulse 59 12/31/2022 3:24 PM EDT Temperature - - Respiratory Rate - - Oxygen Saturation 98% 06/25/2022 2:13 PM EDT Inhaled Oxygen Concentration - - Weight 89.8 kg (198 lb) 12/31/2022 3:24 PM EDT Height 154.9 cm (5' 1 ) 06/25/2022 2:13 PM EDT Body Mass Index 37.41 06/25/2022 2:13 PM EDT Plan of Treatment Health Maintenance Due Date Last Done Comments Breast Cancer Screening 1966 Pneumococcal Vaccine: Pediat rics (0 to 5 Years) and At-Risk Patients (6 to 64 Years) (1 of 2 - PCV) 1972 Hepatitis B Vaccine (1 of 3 - 19+ 3-dose series) 03/18 Colorectal Cancer Screening: Annual FOBT 2015 Colorectal Cancer Screening: Colonoscopy 2015 Colorectal Cancer Screening: Sigmoidoscopy 2015 Influenza Vaccine (#1) 2023 Insurance ([id number]) ([id number]) Care Teams Automatic Pinsetter Mechanic Relationship Specialty Start Date End Date Daryn Duarte MD [address] [place] [id number] PCP - General 04/09/20
--- OUTSIDE RECORDS SUMMARY | 2024-05-10 16:17 | XMS_ITS | Encounter Summary ---
Author Organization [facility] Address [address] [place] [address] Phone Care Team Providers Care Social Worker Clinical Name Role Phone Daryn Duarte MD Primary Care Provider [phone]- [phone] Encounter Details Date Type Department Care Team (Late st Contact Info) Description 11/19/2021 Telephone [facility] [address] [place] [phone] Mati Durbin MD Social History Tobacco Use Types Packs/Day Years Used Date Smoking Tobacco: Former Smokeless Tobacco: Never Comments:Smoking History Inf o:Every day Alcohol Use Standard Drinks/Week Comments Yes 0 (1 standard drink = 0.6 oz pure alcohol) Alcoholic Drinks/day: Occasional social drink Comments Unknown Sex and Gender Information Value Date Recorded Sex Assigned at Female 09/17/2022 12:13 PM EDT Legal Sex Female 5:04 PM EST Gender Identity Female 09/17/2022 12:13 PM EDT Sexual Orientation Straight 09/17/2022 12 :13 PM EDT documented as of this encounter Miscellaneous Notes * Telephone Encounter - Giselle Bethea - 11/19/2021 3:28 PM EDT Pt called, she has a sore throat and would like to know if its ok for her to use Nyquil. If not what is your suggestion. Please advise Thank you CB# [phone] Thank you documented in this encounter Plan of Treatment Not on file documented as of this encounter Visit Diagnoses Not on filedocumented in this encounter Care Teams Social Worker Clinical Relationship Specialty Start Date End Date Daryn Duarte MD [address] [place] [address] [address] [place] [address] PCP - General 04/09/20 documented as of this encounter
--- OUTSIDE RECORDS SUMMARY | 2024-05-10 16:17 | XMS_ITS | Data Portability ---
Author Organization [place] - [facility], Allergy Address [address] [place] [phone] Assessment No assessment recorded. Plan of Treatment [...] Time Disorder of right Eustachia n tube [id number] 97593 Active 2019 Other specified disorders of Eustachia n tube, right ear; Note: Date Diagnosed : 04/13/2019 3:52 PM (H69.81) Not Available [facility] 4 02:31:20 Migraine without aura, not refractor y 391024987 Active 2019 Migraine without aura, not intractab le, without status migrainos us; Note: Date Diagnosed : 04/13/2019 3:52 PM (G43.009) Not Available [facility] 4 02:31:10 Otalgia of right ear 3957099057 Active 2019 Otalgia, right ear; Note: Date Diagnosed : 04/13/2019 3:52 PM (H92.01) Not Available [facility] 4 02:31:19 Mass of neck 423108306 Active 2019 Localized swelling, mass and lump, neck; Note: Date Diagnosed : 06/09/2019 4:03 PM (R22.1) Not Available [facility] 4 02:31:13 Neck swelling 180132431 Active 2019 Localized swelling, mass and lump, neck; Note: Date Diagnosed : 06/09/2019 4:03 PM (R22.1) Not Available [facility] 4 02:31:13 Temporoma ndibular joint disorder 08907083 Active 2019 Other specified disorders of temporoma ndibular joint; Note: Date Diagnosed : 04/13/2019 3:57 PM (M26.69) Not Available [facility] 4 02:31:12 Tinnitus of right ear 06112932657 08 Active 2019 Tinnitus, right ear; Note: Date Diagnosed : 04/13/2019 3:52 PM (H93.11) Not Available [facility] 4 02:31:24 Severe obesity 78242656089 104 Active 2019 Morbid (severe) obesity due to excess calories; Note: Date Diagnosed : 04/13/2019 3:52 PM (E66.01) Not Available [facility] 4 02:31:11 Problem Notes None recorded. Procedures Surgical History None recorded. Imaging Results Imaging Date Name Status LastModified by Organiz ation Details LastModified Time 08/03/2023 MRI, head + neck + orbits, w/wo contrast [facility] not available 10/20/2023 11:27:36 04/13/2019 audiogram [...] Name and Address Organization Details Recorded Time 41171 morphine medicatio n other Not available Not available 08/11/2023 7052 RxNorm React ion: unkno wn, unspe cifie d;; Not Available [facility] 4 00:59:01 Medications Name Sig Start Date Stop Date Status Note LastModified by Organization Details LastModified Time losartan 50 mg tablet Take 1 tablet (50 mg total) by mouth in the morning and 1 tablet (50 mg total) in the evening. active Not Available Not Available No t Available furosemid e 40 mg tablet 2019 active Medicati on ID: [id number] D uration Value: 30 Brand Name: furosemjesse de Send Method: E-Prescr ibed Sub s Allowed: subs OK Speci al Instruct ion: TAKE ONE TABLET BY MOUTH ONCE DAILY Me dication GenericN zoe: furosemi de Not Available Not Available Not Available ranitidin e 300 mg tablet 2019 active Medicati on ID: [id number] D uration Value: 30 Brand Name: ranitidi ne HCl Send Method: E-Prescr ibed Sub s Allowed: subs OK Speci al Instruct ion: TAKE ONE TABLET BY MOUTH ONCE A DAY Medi cationGe nericNam e: ranitidi ne HCl Not Available Not Available Not Available sumatript an 100 mg tablet 2019 active Medicati on ID: [id number] D uration Value: 30 Brand Name: sumatrip [...] mg tablet 2020 active Medicati on ID: [id number] B rand Name: famotidi ne Send Method: [...] mg tablet 2019 active Medicati on ID: 155096 D uration Value: 30 Brand Name: amlodipi [...] mg tablet 2020 active Medicati on ID: 295967 B rand Name: dicyclom ine Send Method: [...] mg capsule 2020 active Medicati on ID: 671363 B rand Name: docusate sodium S end [...] nasal spray 2020 active Medicati on ID: 090053 B rand Name: ipratrop ium bromide Send [...] Available Senexon 2019 active Medicati on ID: 471641 D uration Value: 30 Brand Name: True Send Method: E-Prescr ibed Sub s Allowed: subs ADENIKE Yip al Instruct ion: TAKE 2 TABLETS BY MOUTH ONCE A DAY AT BEDTIME NEEDED Eleonora Cosby Name: True Not Available Not Available Not Available Doc-Q-Lac e 05/28 completed Medicati on ID: [id number] D uration Value: 30 Brand Name: Doc-Q-La ce Send Method: E-Prescr ibed Sub s Allowed: subs OK Suimi al Instruct ion: TAKE ONE CAPSULE BY [...] unit) capsule 2019 active Medicati on ID: [id number] D uration Value: 30 Brand Name: D3 Send Method: E-Prescr ibed Sub s Allowed: subs ADENIKE Yip al Instruct ion: TAKE ONE CAPSULE BY MOUTH DAILY Me dication GenericN zoe: D3-2000 Not Available Not Available Not Available Cerovite Senior 0.4 mg-300 mcg-250 mcg tablet 2019 active Medicati on ID: [id number] D uration Value: 30 Brand Name: Cerovite [...] mcg capsule 2019 active Medicati on ID: [id number] D uration Value: 30 Brand Name: Elías Send Method: E-Prescr ibed Sub s Allowed: subs OK Speci al Instruct ion: TAKE ONE CAPSULE BY MOUTH ONCE A DAY ON EMPTY STOMACH Medicati onGeneri cName: Linzess Not Available Not Available Not Available Gemtesa 75 mg tablet TAKE 1 TABLET BY MOUTH ONCE DAILY active Not Available Not Available No t Available eal COVID-19 Antigen Rapid Home Test kit USE DIRECTED active Not Available Not Available No t Available Vitals Date Recorded Body height Body mass index (BMI) Body weight Provider Name and Address Organization Details Last Updated DateTime 09/28/2023 154.94 cm 38.4 kg/m2 37621.25 g Pati Daly [place] - [facility] 09/28/2023 13:08:36 Social History None recorded. Functional Status None recorded. Mental Status None recorded. Family History Nothing Reported. Medical History No medical history recorded. Gynecological HistoryNo gynecological history recorded. Obstetrics History GPAL:G 0 P 0 0 0 0 Past Encounters Encounter ID Performer Location Encounter Start Date Encounter Closed Date Diagnosis/Indication Diagnosis SNOMED-CT Code Diagnosis ICD10 Code Diagnosis Note [id number] JIMENA HERRERA MD [facility] [address] [address] 09/28/2023 13:02:32 09/28/2023 17:08:11 Mass of neck [id number] R22.1 58-year-ol d female presents today for follow-up after MRI. She was most recently seen for lymphadeno jameel but this had improved. She was seen several years ago for a left parapharyn geal space mass and had not had this reassessed . MRI showed a lobular T2 bright nonenhanci ng within the left prestyloid parapharyn geal space similar in size measuring 15 mm x 9 mm x 16 mm which is of indetermin ate etiology but may represent a lymphatic malformati on.Reassur ance given that it has not changed in size. I would recommend repeat assessment for any change in symptoms including globus, dysphagia, sore throat, neck swelling. Health Concerns Section Related Observation LastModified by Organization Detai ls LastModified Time None Recorded Concern Status LastModified by Organization Details LastModified Time None Recorded Advance Directives Directive None Recorded Payers Encounter Date Sequence Insurance Name Policy Number Policy Ramsey Covered Member ID Ramsey Member ID Guarantor Name 09/28/2023 1 [facility] - DOS ON OR AFTER 2022 - ONE CARE (MEDICARE REPLACEMENT/ADV ANTAGE - HMO) Roxie Hobbs [id number] Roxie Hobbs Notes Date Note Type Note Provider Name and Address Organization Details Recorded Time 09/28/2023 text/html 58-year-old juan josé moran presents today in follow-up after MRI. No [...] not recall having this. JIMENA HERRERA MD [address] [place] [address], [place], [address], [place] - [facility] 10/07/2023 08:39:38 OBGyn Episode No OBEpisode recorded.
--- OUTSIDE RECORDS SUMMARY | 2024-05-10 16:17 | XMS_ITS | Encounter Summary ---
Author Organization [facility] Address [address] [place] [address] Care Team Providers Care Personal Banking Assistant Name Role Phone Daryn Duarte MD Primary Care Provider [phone] Reason for Visit * Reason Onset Date Comments Med Refill 05/10/2024 zepbound Encounter Details Date Type Department Care Team (Late st Contact Info) Description 05/10/2024 Telephone Bariatric Surgery - [place] [address] [phone] Tavon Galdamez MD [address] [address] Med Refill (zepbound) Social History Tobacco Use Types Packs/Day Years Used Date Smoking Tobacco: Never Assessed Comments Unknown Sex and Gender Information Value Date Recorded Sex Assigned at Female 05/22/2022 2:55 AM EST Legal Sex Female 5:03 AM EST Gender Identity Female 05/22/2022 2:55 AM EST Sexual Orientation Not on file documented as of this encounter Progress Notes * Gris Lua - 05/10/2024 1:34 PM EST Patient did well on Zepbound 2.5 mgs and would like a refill with titration. If appropriate, please send script for Zepbound 5 mgs to their pharmacy. The patient does have a follow up in 05/30/2024 documented in this encounter Plan of Treatment Upcoming Encounters Date Type Department Care Team (Late st Contact Info) Description 05/30/2024 1:30 PM EST Nutrition Bariatric Surgery - [place] [address] [phone] Yun Hernandez, SHIRA [address] [address] 08/23/2024 10:00 AM EDT Office Visit Bariatric Surgery - [facility] [address] [phone] Tavon Galdamez MD [address] [address] documented as of this encounter Visit Diagnoses Not on filedocumented in this encounter Care Teams Personal Banking Assistant Relationship Specialty Start Date End Date Daryn Duarte MD [address] [place] [address] [address] [place], [place] PCP - General Internal Medicine 05/21/17 documented as of this encounter
--- OUTSIDE RECORDS SUMMARY | 2024-05-10 16:17 | XMS_ITS | Clinical Summary ---
Author Organization 175 [facility] Address [address] [place] [address] Phone Care Team Providers Care Rolloff Driver Name Role Phone Daryn Duarte MD Primary Care Provider [phone] Allergies Active Allergy Reactions Criticality Noted Date Comments Vu Inhibitors 10/05/2023 Codeine 05/20/2022 Diphenhydramine 04/17/2021 Hydromorphone 10/25/2019 Meperidine 04/17/2021 Morphine Other 10/25/2019 pt states bad reaction Oxycodone Hives 05/20/2022 Medications ferrous sulfate 325 mg (65 mg iron) EC tablet Take 1 tablet (325 mg total) by mouth 3 (three) times a day with meals. Do not crush, chew, or split. 90 each 2 04/20/19 25 025 Active acetaminophen (TYLENOL) 500 mg tablet Take 1 tablet (500 mg total) by mouth if needed. 11/03/19 24 Active albuterol HFA (PROAIR HFA ; PROVENTIL HFA ; VENTOLIN HFA) 90 mcg/actuation inhaler Inhale 2 puffs by mouth if needed. Active amitriptyline (ELAVIL) 10 mg tablet Take 1 tablet (10 mg total) by mouth 1 (one) time each day with dinner. Active budesonide-form oteroL (SYMBICORT) 160-4.5 mcg/actuation inhaler Inhale 2 puffs by mouth if needed. 10/24/19 Active cephalexin (KEFLEX) 500 mg capsule Take 1 capsule (500 mg total) by mouth 2 (two) times a day. 09/08/19 Active clotrimazole (LOTRIMIN) 1 % cream Apply 1 Application topically 2 (two) times a day. 09/08/19 19 Active diclofenac (VOLTAREN) 1 % topical gel Apply 2 g topically 2 (two) times a day. 12/21/19 24 Active furosemide (LASIX) 40 mg tablet Take 1 tablet (40 mg total) by mouth if needed. Active lansoprazole (PREVACID) [address] capsule Take 1 capsule (30 mg total) by mouth 1 (one) time each day. Active Linzess 145 mcg capsule Take 1 capsule (145 mcg total) by mouth 1 (one) time each day in the morning. Active losartan (COZAAR) 50 mg tablet Take 2 tablets (100 mg total) by mouth 1 (one) time each day. Active magnesium oxide (MAG-OX) 400 mg (241.3 elemental magnesium) tablet Take 1 tablet (400 mg total) by mouth 1 (one) time each day. Active nystatin (MYCOSTATIN) cream Apply 30 g topically 2 (two) times a day. 03/28/20 24 Active rizatriptan (MAXALT) 10 mg tablet Take 1 tablet (10 mg total) by mouth 1 (one) time if needed. Active simethicone (MYLICON) 125 mg chewable tablet Chew 1 tablet (125 mg total) every 6 (six) hours if needed. 03/20/20 24 Active SUMAtriptan (IMITREX) 100 mg tablet Take 1 tablet (100 mg total) by mouth 1 (one) time if needed. Active topiramate (TOPAMAX) 50 mg tablet Take 1 tablet (50 mg total) by mouth if needed. 06/17/19 24 Active tirzepatide, weight loss, (Zepbound) 2.5 mg/0.5 mL injectionIndica tions:Class 2 severe obesity due to excess calories with serious comorbidity and body mass index (BMI) of 38.0 to 38.9 in adult ([facility]) Inject 0.5 mL (2.5 mg total) under the skin every 7 (seven) days for 4 doses. 2 mL 04/21/19 25 025 Discontinued Active Problems Problem Noted Date Diagnosed Date Class 2 obesity with body ma ss index (BMI) of 38.0 to 38.9 in adult 03/31/2024 Asthma 12/29/2023 CKD (chronic kidney disease) 12/29/2023 GERD (gastroesophageal reflux disease) HTN (hypertension) 12/29/2023 LEANNA (obstructive sleep apnea) 12/29/2023 Seizures 12/29/2023 Encounters Date Type Department Care Team Description 05/10/2024 Telephone Bariatric Surgery - [address] [phone] Tavon Galdamez MD Med Refill (zepbound) 05/02/2024 10:30 AM EST Nutrition Bariatric Surgery - [address] [phone] Class 2 obesity with body mass index (BMI) of 38.0 to 38.9 in adult, unspecified obesity type, unspecified whether serious comorbidity present (Primary Dx) 04/21/2024 9:00 AM EST Office Visit Bariatric Surgery [address] [phone] Tavon Galdamez MD Class 2 severe obesity due to excess calories with serious comorbidity and body mass index (BMI) of 38.0 to 38.9 in adult ([facility]) (Primary Dx) 04/21/2024 Telephone Bariatric Surgery - [address] [place] [phone] Tavon Galdamez MD Prior auth (Prior auth) 04/18/2024 8:45 AM EST Lab Draw Station - [address] [place] [address] [address] [place] [phone] Class 2 obesity with body mass index (BMI) of 39.0 to 39.9 in adult, unspecified obesity type, unspecified whether serious comorbidity present 03/31/2024 1:30 PM EST Nutrition Bariatric Surgery - [place] [address] [phone] Class 2 obesity with body mass index (BMI) of 39.0 to 39.9 in adult, unspecified obesity type, unspecified whether serious comorbidity present (Primary Dx) from Last 3 Months Social History Tobacco Use Types Packs/Day Years Used Date Smoking Tobacco: Never Assessed Comments Unknown Sex and Gender Information Value Date Recorded Sex Assigned at Female 05/22/2022 2:55 AM EST Legal Sex Female 5:03 AM EST Gender Identity Female 05/22/2022 2:55 AM EST Sexual Orientation Not on file Last Filed Vital Signs Vital Sign Reading Time Taken Comments Blood Pressure 170/84 04/21/2024 9:16 AM EST Pulse 52 04/21/2024 9:16 AM EST Temperature 36.2 ??C (97.2 ??F) 04/21/2024 9:16 AM ES T Respiratory Rate - - Oxygen Saturation - - Inhaled Oxygen Concentration - - Weight 92.5 kg (204 lb) 05/02/2024 10:31 AM EST Height 154.9 cm (5' 1 ) 04/21/2024 9:16 AM EST Body Mass Index 38.55 04/21/2024 9:16 AM EST Plan of Treatment Upcoming Encounters Date Type Department Care Team (Late st Contact Info) Description 05/30/2024 1:30 PM EST Nutrition Bariatric Surgery - [place] [address] [phone] [phone] 08/23/2024 10:00 AM EDT Office Visit Bariatric Surgery - [place] [address] [phone] Tavon Galdamez MD [address] [address] Health Maintenance Due Date Last Done Comments Breast Cancer Screening 1966 Hepatitis B Vaccines (1 of 3 - 19+ 3-dose series) 1985 Cervical Cancer Screening: Pap Smear 1987 Pneumococcal Vaccine: 50+ Years (2 of 2 - PCV) 12/31/2007 12/30/2006 Pneumococcal Vaccine: Pediatrics (0 to 5 Years) and At-Risk Patients (6 to 64 Years) (2 of 2 - PCV) 12/31/2007 12/30/2006 DTaP,Tdap,and Td Vaccines (2 - Td or Tdap) 08/28/2011 07/31/2011 Zoster Vaccines (1 of 2) 2016 Colorectal Cancer Screening: Colonoscopy 03/02/2022 Depression Screening 03/02/2022 HIV Screening 03/02/2022 Hepatitis C Screening 03/02/2022 Social Influencers of Health Screening 03/02/2022 COVID-19 Vaccine ( season) 2023 03/14/2021, 07/31/2020, 07/10/2020 Hypertension/CHF/CAD Annual BMP Blood Test 04/18/2025 04/18/2024 Cholesterol Screening (Lipid Panel) 04/18/2029 04/18/2024 Influenza Vaccine Completed 02/19/2024, , 01/21/2022, Additional history exists HIB Vaccines Aged Out No longer eligi ble based on patient's age to complete this topic HPV Vaccines Aged Out No longer eligi ble based on patient's age to complete this topic Hepatitis A Vaccines Aged Out No long er eligible based on patient's age to complete this topic IPV Vaccines Aged Out No longer eligi ble based on patient's age to complete this topic MMR Vaccines Aged Out No longer eligi ble based on patient's age to complete this topic Meningococcal ACWY Vaccine Aged Out N o longer eligible based on patient's age to complete this topic Meningococcal B Vacine Aged Out No lo nger eligible based on patient's age to complete this topic RSV Immunization Patients Under 20 months Aged Out No longer eligible based on patient's age to complete this topic Varicella Vaccines Aged Out No longer eligible based on patient's age to complete this topic Procedures Procedure Name Priority Date/Time Associated Diagnosis Comments CBC WITH AUTO DIFFERENTIAL Routine 04/18/2024 8:43 [...] obesity type, unspecified whether serious comorbidity present LIPID PANEL WITH REFLEX TO DIRECT LDL [...] obesity type, unspecified whether serious comorbidity present from Last 3 Months Results * (ABNORMAL) Lipid panel with reflex to direct LDL (04/18/2024 8:43 AM EST) [facility] Cholesterol 181 0 - 200 mg/dL LAB CHEMISTRY METHOD 04/18/2024 10:22 AM EST [facility] Triglycerides 90 0 - 150 mg/dL LAB CHEMISTRY METHOD 04/18/2024 10:22 AM EST [facility] HDL 58 >=40 mg/dL LAB CHEMISTRY METHOD 04/18/2024 10:22 AM EST [facility] LDL Calculated 105(H) 0 - 100 mg/dL LAB CHEMISTRY METHOD 04/18/2024 10:22 AM EST [facility] VLDL Cholesterol Gerhard 18 mg/dL LAB CHEMISTRY METHOD 04/18/2024 10:22 AM EST [facility] Non HDL Chol. (LDL+VLDL) 123 <145 mg/dL LAB CHEMISTRY METHOD 04/18/2024 10:22 AM EST [facility] Chol/HDL Ratio 3.1 0.0 - 4.4 LAB CHEMISTRY METHOD 04/18/2024 10:22 AM EST [facility] Blood Venous blood specimen / Unknown Venipuncture / Unknown 04/18/2024 8:43 AM EST 04/18/2024 8:44 AM EST Haydee Espinosa MD LAB BLOOD ORDERABLES Fi nal Result [facility] [address] [place] [address], * Nicotine and cotinine (04/18/2024 8:43 AM [...] ?<2 ng/mL Reference Ranges from: ??Clin. Chem.; ??[id number] (2001) Direct any interpretive questions to the toxicology laboratory. This is for medical use only, it is not intended for forensic use. If applicable, any drug confirmation testing reported here was developed and the performance characteristics determined by [facility]. This confirmation testing has not been cleared or approved by the FDA. The laboratory is regulated under CLIA as qualified to perform high-complexity testing. This test is used for patient testing purposes. It should not be regarded as investigational or for research. Test performed at [facility], [address] , [place], [place] ??[address] ? [phone] Faiza Narvaez MD, PhD - Vp Delivery Blood Venous blood specimen / Unknown Venipuncture / Unknown 04/18/2024 8:43 AM EST 04/18/2024 8:44 AM EST us Haydee Espinosa MD LAB BLOOD ORDERABLES Fi nal Result [facility] [address] [facility] [place] [address] * (ABNORMAL) CBC auto differential (04/18/2024 8:43 AM EST) [facility] WBC 5.9 4.8 - 10.8 K/[facility] LAB HEMETOLOGY METHOD 04/18/2024 9:51 AM EST [facility] RBC 4.70 3.80 - 4.80 M/[facility] LAB HEMETOLOGY METHOD 04/18/2024 9:51 AM EST [facility] Hemoglobin 13.7 11.5 - 16.0 g/dL LAB HEMETOLOGY METHOD 04/18/2024 9:51 AM [facility] Hematocrit 44.0 35.0 - 47.0 % LAB HEMETOLOGY METHOD 04/18/2024 9:51 AM [facility] MCV 93.2 79.0 - 98.0 FL LAB HEMETOLOGY METHOD 04/18/2024 9:51 AM [facility] MCH 29.0 27.0 - 32.0 pcg LAB HEMETOLOGY METHOD 04/18/2024 9:51 AM [facility] MCHC 31.1(L) 32.0 - 37.0 g/dL LAB HEMETOLOGY METHOD 04/18/2024 9:51 AM [facility] RDW 13.7 11.0 - 15.0 % LAB HEMETOLOGY METHOD 04/18/2024 9:51 AM [facility] Platelets 190 130 - 400 K/mcL LAB HEMETOLOGY METHOD 04/18/2024 9:51 AM [facility] MPV 11.0 7.0 - 11.0 FL LAB HEMETOLOGY METHOD 04/18/2024 9:51 AM [facility] NRBC 0.0 <1.0 % LAB HEMETOLOGY METHOD 04/18/2024 9:51 AM [facility] NRBC Absolute 0.00 <0.10 K/mcL LAB HEMETOLOGY METHOD 04/18/2024 9:51 AM [facility] Neutrophils Relative 59.9 % LAB HEMETOLOGY METHOD 04/18/2024 9:51 AM [facility] Lymphocytes Relative 28.2 % LAB HEMETOLOGY METHOD 04/18/2024 9:51 AM [facility] Monocytes Relative 7.9 % LAB HEMETOLOGY METHOD 04/18/2024 9:51 AM [facility] Eosinophils Relative 3.2 % LAB HEMETOLOGY METHOD 04/18/2024 9:51 AM EST [facility] Basophils Relative 0.5 % LAB HEMETOLOGY METHOD 04/18/2024 9:51 AM [facility] Immature Granulocytes Relative 0.3 % LAB HEMETOLOGY METHOD 04/18/2024 9:51 AM [facility] Neutrophils Absolute 3.55 1.50 - 7.00 K/mcL LAB HEMETOLOGY METHOD 04/18/2024 9:51 AM [facility] Lymphocytes Absolute 1.67 1.00 - 5.00 K/mcL LAB HEMETOLOGY METHOD 04/18/2024 9:51 AM [facility] Monocytes Absolute 0.47 0.20 - 1.00 K/mcL LAB HEMETOLOGY METHOD 04/18/2024 9:51 AM [facility] Eosinophils Absolute 0.19 0.00 - 0.50 K/mcL LAB HEMETOLOGY METHOD 04/18/2024 9:51 AM [facility] Basophils Absolute 0.03 0.00 - 0.20 K/mcL LAB HEMETOLOGY METHOD 04/18/2024 9:51 AM [facility] Immature Granulocytes Absolute 0.02 0.00 - 0.03 K/mcL LAB HEMETOLOGY METHOD 04/18/2024 9:51 AM [facility] Blood Venous blood specimen / Unknown Venipuncture / Unknown 04/18/2024 8:43 AM EST 04/18/2024 8:44 AM EST us Haydee Espinosa MD LAB BLOOD ORDERABLES Fi nal Result [facility] [address] [place] [address], * (ABNORMAL) Iron and TIBC (04/18/2024 8:43 AM EST) [facility] Signature Iron 37(L) 40 - 150 mcg/dL LAB CHEMISTRY METHOD 04/18/2024 10:22 AM EST [facility] TIBC 321 250 - 450 mcg/dL LAB CHEMISTRY METHOD 04/18/2024 10:22 AM EST [facility] Iron Saturation 12(L) 15 - 50 % LAB CHEMISTRY METHOD 04/18/2024 10:22 AM EST [facility] Blood Venous blood specimen / Unknown Venipuncture / Unknown 04/18/2024 8:43 AM EST 04/18/2024 8:44 AM EST us Haydee Espinosa MD LAB BLOOD ORDERABLES Fi nal Result Performing Organization Address City/[facility]/ZIP Co de Phone Number [facility] [address] [place] [address], [place] [phone] * Vitamin D 25 hydroxy (04/18/2024 8:43 AM EST) Vit D, 25-Hydroxy 31.6 30.0 - 80.0 ng/mL LAB CHEMISTRY METHOD 04/18/2024 10:29 AM EST [facility] Blood Venous blood specimen / Unknown Venipuncture / Unknown 04/18/2024 8:43 AM EST 04/18/2024 8:44 AM EST us Haydee Espinosa MD LAB BLOOD ORDERABLES Fi nal Result [facility] [address] [place] [address], [place] [phone] * (ABNORMAL) Thyroid stimulating hormone (04/18/2024 8:43 AM EST) TSH 4.79(H) 0.40 - 4.00 mcIU/mL LAB CHEMISTRY METHOD 04/18/2024 10:30 AM EST [facility] Blood Venous blood specimen / Unknown Venipuncture / Unknown 04/18/2024 8:43 AM EST 04/18/2024 8:44 AM EST us Haydee Espinosa MD LAB BLOOD ORDERABLES Fi nal Result [facility] [address] [place] [address], [place] [phone] * Vitamin B1 (04/18/2024 8:43 AM EST) Pathologist [facility] Vitamin B1 Whole Blood 88 38 - 122 ug/L 04/22/2024 4:47 AM EST [facility] Comment: This test was developed and the performance characteristics determined by [facility]. It has not been cleared or approved by the FDA. The laboratory is regulated under CLIA as qualified to perform high-complexity testing. This test is used for patient testing purposes. It should not be regarded as investigational or for research. Test performed at [facility], [address] , [place], [place] ??[address] ? [phone] Faiza Narvaez MD, PhD - Vp Delivery Blood Venous blood specimen / Unknown Venipuncture / Unknown 04/18/2024 8:43 AM EST 04/18/2024 8:44 AM EST us Haydee Espinosa MD LAB BLOOD ORDERABLES Fi nal Result [facility] [address] [place] [address] * (ABNORMAL) Magnesium (04/18/2024 8:43 AM EST) Pathologist [facility] Magnesium 1.8(L) 1.9 - 2.6 mg/dL LAB CHEMISTRY METHOD 04/18/2024 10:22 AM EST [facility] Blood Venous blood specimen / Unknown Venipuncture / Unknown 04/18/2024 8:43 AM EST 04/18/2024 8:44 AM EST us Haydee Espinosa MD LAB BLOOD ORDERABLES Fi nal Result Performing Organization Address [facility]/ZIP Co de Phone Number [facility] [address] [place] [address], [place] [phone] * Hemoglobin A1c (04/18/2024 8:43 AM EST) [facility] Hemoglobin A1C 6.1 <6.5 % LAB CHEMISTRY METHOD 04/18/2024 1:32 PM EST [facility] Mean Bld Glu Estim. 128 mg/dL LAB CHEMISTRY METHOD 04/18/2024 1:32 PM EST [facility] Blood Venous blood specimen / Unknown Venipuncture / Unknown 04/18/2024 8:43 AM EST 04/18/2024 8:44 AM EST us Haydee Espinosa MD LAB BLOOD ORDERABLES Fi nal Result Performing Organization Address [facility] Co de Phone Number [facility] [address] [place] [address], [place] [phone] * (ABNORMAL) Folate (04/18/2024 8:43 AM EST) [facility] Folate >20.0(H) 2.8 - 17.0 ng/ml LAB CHEMISTRY METHOD 04/18/2024 10:44 AM EST [facility] Blood Venous blood specimen / Unknown Venipuncture / Unknown 04/18/2024 8:43 AM EST 04/18/2024 8:44 AM EST us Haydee Espinosa MD LAB BLOOD ORDERABLES Fi nal Result Performing Organization Address [facility] Co de Phone Number [facility] [address] [place] [address], [place] [phone] * Ferritin (04/18/2024 8:43 AM EST) [facility] Ferritin 52 8 - 252 ng/mL LAB CHEMISTRY METHOD 04/18/2024 10:22 AM EST [facility] Blood Venous blood specimen / Unknown Venipuncture / Unknown 04/18/2024 8:43 AM EST 04/18/2024 8:44 AM EST us Haydee Espinosa MD LAB BLOOD ORDERABLES Fi nal Result Performing Organization Address City/[facility]/ZIP Co de Phone Number [facility] [address] [place] [address], [place] [phone] * Vitamin B12 (04/18/2024 8:43 AM EST) Vitamin B-12 316 250 - 900 pcg/mL LAB CHEMISTRY METHOD 04/18/2024 10:44 AM EST [facility] Blood Venous blood specimen / Unknown Venipuncture / Unknown 04/18/2024 8:43 AM EST 04/18/2024 8:44 AM EST Haydee Espinosa MD LAB BLOOD ORDERABLES Fi nal Result Performing Organization Address City/[facility]/ZIP Co de Phone Number [facility] [address] [place] [address], [place] [phone] * Cortisol (04/18/2024 8:43 AM EST) Cortisol 11.6 mcg/dL LAB CHEMISTRY METHOD 04/18/2024 10:30 AM EST [facility] Blood Venous blood specimen / Unknown Venipuncture / Unknown 04/18/2024 8:43 AM EST 04/18/2024 8:44 AM EST Narrative [facility] - 04/18/2024 10:30 AM EST CORTISOL REFERENCE RANGE ?? 8 AM SPEC: ??5.0-23.0 mcg/dL ?? 4 PM SPEC: ??3.0-16.0 mcg/dL ?? 8 PM SPEC: ??<5.0 mcg/dL us Haydee Espinosa MD LAB BLOOD ORDERABLES Fi nal Result [facility] [address] [place] [address], * (ABNORMAL) Comprehensive metabolic panel (04/18/2024 8:43 AM EST) Sodium 140 133 - 145 mmol/L LAB CHEMISTRY METHOD 04/18/2024 10:22 AM [facility] Potassium 4.6 3.5 - 5.5 mmol/L LAB CHEMISTRY METHOD 04/18/2024 10:22 AM [facility] Chloride 106 96 - 110 mmol/L LAB CHEMISTRY METHOD 04/18/2024 10:22 AM [facility] CO2 30 21 - 32 mmol/L LAB CHEMISTRY METHOD 04/18/2024 10:22 AM [facility] Anion Gap 4 3 - 11 LAB CHEMISTRY METHOD 04/18/2024 10:22 AM [facility] Glucose 90 70 - 100 mg/dL LAB CHEMISTRY METHOD 04/18/2024 10:22 AM [facility] BUN 31(H) 5 - 25 mg/dL LAB CHEMISTRY METHOD 04/18/2024 10:22 AM [facility] Creatinine 2.11(H) 0.50 - 1.10 mg/dL LAB CHEMISTRY METHOD 04/18/2024 10:22 AM [facility] eGFR 27(L) >=60 mL/min/1. 73m2 LAB CHEMISTRY METHOD 04/18/2024 10:22 AM [facility] Comment:Calculation based on the??Chronic Kidney Disease Epidemiology Collaboration (CKD-EPI) equation refit??without adjustment for race. BUN/Creatinine Ratio 14.7 LAB CHEMISTRY METHOD 04/18/2024 10:22 AM [facility] Calcium 9.2 8.5 - 10.5 mg/dL LAB CHEMISTRY METHOD 04/18/2024 10:22 AM [facility] AST (SGOT) 18 10 - 42 unit/L LAB CHEMISTRY METHOD 04/18/2024 10:22 AM [facility] ALT (SGPT) 21 10 - 60 unit/L LAB CHEMISTRY METHOD 04/18/2024 10:22 AM [facility] Alkaline Phosphatase 112 42 - 121 unit/L LAB CHEMISTRY METHOD 04/18/2024 10:22 AM [facility] Total Protein 6.5 6.0 - 8.0 g/dL LAB CHEMISTRY METHOD 04/18/2024 10:22 AM [facility] Albumin 3.4 3.2 - 5.0 g/dL LAB CHEMISTRY METHOD 04/18/2024 10:22 AM [facility] Total Bilirubin 0.2 0.0 - 1.4 mg/dL LAB CHEMISTRY METHOD 04/18/2024 10:22 AM [facility] Blood Venous blood specimen / Unknown Venipuncture / Unknown 04/18/2024 8:43 AM EST 04/18/2024 8:44 AM EST Haydee Espinosa MD LAB BLOOD ORDERABLES Fi nal Result [facility] [address] [place] [address], from Last 3 Months Insurance [facility] Member Subscriber Plan / Payer (Ef fective 2018-Present) Name:Roxie Hobbs I Relation to Subscriber:Self Name:Roxie Hobbs I Payer ID:[id number] Group ID:[id number] Type:Not on file Address: [address] [place] [address] Care Teams Rolloff Driver Relationship Specialty Start Date End Date Daryn Duarte MD [address] [place] [address] Jesse [address] Charles PCP - General Internal Medicine 05/21/17
--- OUTSIDE RECORDS SUMMARY | 2024-05-10 16:17 | XMS_ITS | Encounter Summary ---
Author Organization [facility] Address [address] [place] [address] Care Team Providers Care Delinquency Counselor Name Role Phone Daryn Duarte MD Primary Care Provider [phone] Reason for Visit * Reason Comments Obesity Encounter Details Date Type Department Care Team (Late st Contact Info) Description 05/02/2024 10:30 AM EST Nutrition Bariatric Surgery - [place] [address] [phone] Yun Hernandez, RD [address] [address] Class 2 obesity with body mass index (BMI) of 38.0 to 38.9 in adult, unspecified obesity type, unspecified whether serious comorbidity present (Primary Dx) Social History Tobacco Use Types Packs/Day Years Used Date Smoking Tobacco: Never Assessed Comments Unknown Sex and Gender Information Value Date Recorded Sex Assigned at Female 05/22/2022 2:55 AM EST Legal Sex Female 5:03 AM EST Gender Identity Female 05/22/2022 2:55 AM EST Sexual Orientation Not on file documented as of this encounter Last Filed Vital Signs Vital Sign Reading Time Taken Comments Blood Pressure - - Pulse - - Temperature - - Respiratory Rate - - Oxygen Saturation - - Inhaled Oxygen Concentration - - Weight 92.5 kg (204 lb) 05/02/2024 10:31 AM EST Height - - Body Mass Index 38.55 04/21/2024 9:16 AM EST documented in this encounter Progress Notes * Yun Hernandez, SHIRA - 05/02/2024 10:30 AM EST Images from the original note were not included. Here are the program requirements that you can work on at your own pace: Labs: Your lab work has been ordered and is in the computer. You can go to [facility] at [address] [place] [address], [address], when you are ready. They open at 7:30am. You can also go to another [facility] lab that may be more conveniently located. No food/drink after midnight please - these are fasting labs. NO GUM, CANDY, MINTS, TUMS, OR WATER FOR ONE HOUR BEFORE! You have a pendinghpylori lab. If you would like, you can join our Facebook group [facility]ariat[facility] Support Group. (It has a picture of a yellow shirt with a tape measure). Support group (Facebook): Please watch the videos I posted on the FB page (use the magnifying glassto search for [facility] Dietitian to locate my posts and scroll down until you see videos). Please send an email to me at the email address provided in the video. There are two topics ( drink options and adequate fluid intake part 1 and part 2 and dietitian's lunchbox ). You need to watch all 3 videos and email me to get credit for support groups. or Support group (in-person): You must attend two support groups. Support groups are held every from 5:30-6:30pm in the second-floor cafeteria of [address] [place] [address]. No need tosign up, feel free to just show up. Psych eval: You have two options for your psychological evaluation Dr. Carin Gillespie [phone] [place] [place], [facility] [phone]. Both are doing remote visits. Call either one and let them know you are in the [facility]ariatric Program and need a psych eval set up. Make sure to provide your name, number, and date. Physical: You need to have a physical with your primary care doctor within the last one year. If you have not had one, please call to schedule a physical. If you are unsure, please call your doctor'soffice to ask. If your primary care office is *not* within [facility], please ask them to fax their office note to [phone]. Patient-created Goals: Surgeon sent prescription for iron Fluid goal: 64 ounces daily, slowly sip- limit juice or switch to diet juice Please check with your assembly line machine operator regarding protein guidance (our guidance is typically 60-80g daily) Aim to include protein every time you eat to help with appetite https://www.[employer].org/get-help/iivgag-kzcy-kusf/ Use protein handout to learn protein content of different foods May purchase a food scale * Yun Hernandez RD - 05/02/2024 10:30 AM EST NUTRITION FOLLOW-UP NOTE: Patient Name: Roxie Hobbs Date of : 1965 Date of Service: 05/02/2024 SURGEON: Dr. Haydee Espinosa, Dr. Galdamez for medication DESIRED SURGERY: Sleeve gastrectomy Would need nephrology clearance CKD III- told from assembly line machine operator to increase water and minimize salt (encouraged pt to talk to assembly line machine operator to discuss protein guidance apt 05/18/23) Started zethursday through Dr. Galdamez CHIEF COMPLAINT: Obesity HISTORY: Roxie Hobbs is a 59 y.o. female who presents for nutrition visit for preop bariatric surgery. Thisis their 2 visit. Ht Readings from Last 1 Encounters: 04/21/24 1.549 m (61 ) Wt Readings from Last 4 Encounters: 05/02/24 92.5 kg (204 lb) 04/21/24 91.6 kg (202 lb) 03/31/24 92.1 kg (203 lb) 10/05/23 93 kg (205 lb) Body mass index is 38.55 kg/m??. Wt at initial: 205 Wt change since initial: -1 EBW = current - wt at BMI of 25: 204-130=74 Challenges: low iron- pt made aware of script, feeling hungry, worried about health, constipated sometimes, finances Changes since last visit: smaller portions of rice, new bottle for water to pace herself, using splenda EATING HABITS/DIET RECALL: Breakfast: coffee boiled egg toast Snack: nuts or berries Lunch: chicken soup no rice with root veggies fruit Dinner: chicken soup/ root veggie salad Snacks: blueberries Beverages: water- 48-64 ounces daily, coffee, juice 2 cups a day, splenda with lemon and cucumber MVI: iron, vit D Exercise: arthritis in feet ALLERGIES: Allergies Allergen Reactions Vu Inhibitors Codeine Diphenhydramine Hydromorphone Meperidine Morphine Other pt states bad reaction Oxycodone Hives Nutrition diagnosis: Class II obesity related to predicted inadequate physical activity and predicted inadequate protein intakeas evidenced by BMI of 38.6 Patient-created Goals: Surgeon sent prescription for iron Fluid goal: 64 ounces daily, slowly sip- limit juice or switch to diet juice Please check with your assembly line machine operator regarding protein guidance (our guidance is typically 60-80g daily) Aim to include protein every time you eat to help with appetite https://www.[employer].org/get-help/nmcuaq-oqzr-jffq/ Use protein handout to learn protein content of different foods May purchase a food scale Literature Provided: Protein handout, Pt centered goals, and RD contact information Interventions: Discussed the importance of drinking enough water Nutrition assessment: Pt is 59 y.o. female with h/o has no past medical history on file. Class II obesity Stage of change/Barriers to understanding: Pt is motivated to make changes to diet and lifestyle nobarriers to understanding Concerns regarding considerations for bariatric surgery: Patient voiced none and RD has none at this time Monitoring/Evaluation: monitor weight, monitor progress toward nutrition goals, and monitor compliance with program overall Patient nutritionally ready for surgery: no pt would need to finish labs, psych clearance, support group and physical with primary care. RD to see patient for follow-up nutrition visit in 1 months Visit Time: The total time of this visit was 30 minutes of which we spent 30 minutes (>50% of the time spent) in direct [id number] consultation for counseling, reviewing medical record and/or coordinating the plan as described above. Yun Hernandez RD NUTRITION SERVICES Cosigned by Tavon Galdamez MD at 05/02/2024 4:05 PM EST documented in this encounter Plan of Treatment Upcoming Encounters Date Type Department Care Team (Late st Contact Info) Description 05/30/2024 1:30 PM EST Nutrition Bariatric Surgery - [place] [address] [phone] [address] 08/23/2024 10:00 AM EDT Office Visit Bariatric Surgery [facility] [address] [phone] Tavon Galdamez MD [address] [address] Scheduled Orders Name Type Priority Associated Diagnoses Orde r Schedule Helicobacter pylori antigen, stool Lab Routine Class 2 obesity with body mass index (BMI) of 38.0 to 38.9 in adult, unspecified obesity type, unspecified whether serious comorbidity present 1 Occurrences starting 05/02/2024 until 05/02/2025 documented as of this encounter Visit Diagnoses Diagnosis Class 2 obesity with body mass index (BMI) of 38.0 to 38.9 in adult, unspecified obesity type, unspecified whether serious comorbidity present- Primary documented in this encounter Care Teams Delinquency Counselor Relationship Specialty Start Date End Date Daryn Duarte MD [address] [place] [address] Dr [address] ABIGAIL Charles PCP - General Internal Medicine 05/21/17 documented as of this encounter
--- OUTSIDE RECORDS SUMMARY | 2024-05-10 16:17 | XMS_ITS | Encounter Summary ---
Author Organization [email or web address] Address [address] [place] [address] Care Team Providers Care Operations Welder Name Role Phone Daryn Duarte MD Primary Care Provider [phone] Reason for Visit * Reason Comments Consult New patient Encounter Details Date Type Department Care Team (Late st Contact Info) Description 04/21/2024 9:00 AM EST Office Visit Bariatric Surgery - [place] [address] [phone] Tavon Galdamez MD 175 [facility] [address] [place] [address] Class 2 severe obesity due to excess calories with serious comorbidity and body mass index (BMI) of 38.0 to 38.9 in adult (CMS/HCC) (Primary Dx) Social History Tobacco Use Types [...] - Inhaled Oxygen Concentration - - Weight 91.6 kg (202 lb) 04/21/2024 9:16 AM EST Height 154.9 cm (5' 1 ) 04/21/2024 9:16 AM EST Body Mass Index 38.17 04/21/2024 9:16 AM EST documented in this encounter Ordered Prescriptions Prescription Sig Dispense Quantity Refills Last Filled Start Date End Date tirzepatide, weight loss, (Zepbound) 2.5 mg/0.5 mL injectionIndicatio ns:Class 2 severe obesity due to excess calories with serious comorbidity and body mass index (BMI) of 38.0 to 38.9 in adult (CMS/[facility]) Inject 0.5 mL (2.5 mg total) under the skin every 7 (seven) days for 4 doses. 2 mL 04/21/2024 05/10/2024 documented in this encounter Progress Notes * Tavon Galdamez MD - 04/21/2024 9:00 AM EST Previous visit. Ms. Hobbs is a 58 yr. year old Female who presents to discuss surgical weight loss. She has had trouble with her weight since many years. Some of the methods She has tried for weight loss are multiple diets and exercise. Some of the obstacles She cites as hindering She weight loss are Arhtritis inbilat knee so diff to walk, but she has been making efforts to walk daily since July. She has a recent history of kidney biopsy for a history of stage 3 CKD but results are still pending-has follow up with nephro soon She is not on dialysis yet but was told that if her condition worsens she may be heading there. Has been diagnosed with sleep apnea, uses CPAP nightly. Allergies: VU inhibitors Codeine Benadryl-rash, mouth swelling Hydromorphone Meperidine Morphine Tape Reflux-on lansoprazole -just started this medication so is unsure what ever it helps Had an EGD and was told she does have a hiatal hernia (sees gastroenterology at [facility]) Any limitations/disabilities precluding exercise: arthritis Current exercise regimen: walking daily on a track for an hour, soemtimes twice a day. Ms. Hobbs is a 59 y.o. year old female who presents for surgical follow up regarding obesity. HPI: Ms. Hobbs wants to try GLP-1 agonists. History as above. BMI is 38.17. Has lost 3 lbs with dietitian. A1C 6.1%. ROS: GENERAL: No malaise, significant unintentional weight loss, fever, chills or night sweats. HEENT: No changes in hearing or vision, no nose bleeds or other nasal problems. NECK: No lumps, goiter, pain or significant neck swelling RESPIRATORY: No cough, wheezing or shortness of breath CARDIOVASCULAR: No chest pain, leg swelling or palpitations. GI: No abdominal discomfort, nausea, vomiting, or change in bowel habits. : No dysuria, frequency or incontinence. SKIN: No lesions, rash or itching. HEMATOLOGY: No prolonged bleeding, easy bruisability. LYMPHOLOGY No swollen nodes. MUSCULOSKELETAL: No abnormalities. NEURO: No abnormalities. All other systems reviewed which are negative. PAST MEDICAL HISTORY: Patient Active Problem List Diagnosis Date Noted Date Diagnosed Class 2 obesity with body mass index (BMI) of 39.0 to 39.9 in adult 03/31/2024 Asthma 12/29/2023 CKD (chronic kidney disease) 12/29/2023 GERD (gastroesophageal reflux disease) 12/29/2023 HTN (hypertension) 12/29/2023 LEANNA (obstructive sleep apnea) 12/29/2023 Seizures (CMS/HCC) 12/29/2023 PAST SURGICAL HISTORY: No past surgical history on file. SOCIAL HISTORY: Social History Tobacco Use Smoking status: Not on file Smokeless tobacco: Not on file Substance Use Topics Alcohol use: Not on file FAMILY HISTORY: No family history on file. No family status information on file. MEDICATIONS: There are no discontinued medications. ACTIVE MEDICATIONS: Outpatient Medications Marked as Taking for the 04/21/24 encounter (Office Visit) with Tavon Galdamez MD Medication Sig Dispense Refill acetaminophen (TYLENOL) 500 mg tablet Take 1 tablet (500 mg total) by mouth if needed. budesonide-formoteroL (SYMBICORT) 160-4.5 mcg/actuation inhaler Inhale 2 puffs by mouth if needed. cephalexin (KEFLEX) 500 mg capsule Take 1 capsule (500 mg total) by mouth 2 (two) times a day. clotrimazole (LOTRIMIN) 1 % cream Apply 1 Application topically 2 (two) times a day. diclofenac (VOLTAREN) 1 % topical gel Apply 2 g topically 2 (two) times a day. nystatin (MYCOSTATIN) cream Apply 30 g topically 2 (two) times a day. simethicone (MYLICON) 125 mg chewable tablet Chew 1 tablet (125 mg total) every 6 (six) hours if needed. topiramate (TOPAMAX) 50 mg tablet Take 1 tablet (50 mg total) by mouth if needed. ALLERGIES: Allergies Allergen Reactions Vu Inhibitors Codeine Diphenhydramine Hydromorphone Meperidine Morphine Other pt states bad reaction Oxycodone Hives PHYSICAL EXAM: Visit Vitals BP (!) 170/84 Pulse 52 Temp 36.2 ??C (97.2 ??F) (Oral) Ht 1.549 m (61 ) Wt 91.6 kg (202 lb) BMI 38.17 kg/m?? BSA 1.9 m?? APPEARANCE: Alert and oriented and in no acute distress EYES: Conjunctiva normal and sclera normal and anicteric. NECK: Neck supple with no adenopathy. HEART: RRR with normal S 1 and S 2, no murmurs, no gallops. LUNG: Clear to auscultation LYMPH NODES: No gross cervical or clavicular lymphadenopathy. ABDOMEN: Bowel sounds normoactive, soft, non-tender, non-distended, EXTREMITIES: Extremities warm and well perfused without clubbing, cyanosis, or edema. SKIN: Skin color and texture normal. No rashes or lesions. NEUROLOGIC: Alert and oriented ??3. No motor or sensory deficits in the extremities. LABS/IMAGING: ASSESSMENT: 1. Class 2 severe obesity due to excess calories with serious comorbidity and body mass index (BMI)of 38.0 to 38.9 in adult (CMS/[facility]) PLAN: 1. The patient is a good candidate for medical weight management given a BMI of 38.17, obesity class 2, with the following comorbid conditions LEANNA and HTN. She has chronic kidney disease due to HTN. Also, A1C is 6.1%, prediabetes. They remain dedicated to improving their health and quality of life as well as remaining physicallyactive. I have had a long discussion with the patient regarding medical weight management which includes both oral medications including stimulants/appetite suppressants versus injectable GLP-1 medications. At this time, patient does not qualify for oral medication due to the following reasons - not effective for this BMI. HTN. In addition to this, oral stimulant suppressants are meant to be used short-term and studies have shown that obesity needs to be treated as a chronic condition. We have decided to proceed with injectable GIP/GLP-1 medication - tirzepatide. The risks and benefits of this medication were discussed in length with the patient. Benefits include weight loss and overall healthier lifestyle with he hopes of improving any co morbid conditions. Risks include nausea/vomiting, diarrhea, injection site reaction, gastroparesis. We have also discussed the potential for thyroid cancer and multiple endocrine neoplasia; patient denies family history of either condition. We discussed that this medication should be used long-term and that obesity will be treated as a chronic condition. If and when patient stops this medication weight may come back. The patient will follow-up in the office every 4 weeks for a weight check and potential dose titration The patient will also continue to follow-up with the dietitian to ensure that they are working on proper eating habits in addition to using the medication. 2. The patient will let us know in few weeks if the medication is being effective or if the patientis having side effects. The dose will be adjusted depending upon the response and the presence of side effects. Follow-up in 3 months. documented in this encounter Plan of Treatment Upcoming Encounters Date Type Department Care Team (Late st Contact Info) Description 05/30/2024 1:30 PM EST Nutrition Bariatric Surgery - [place] [address] [phone] [address] 08/23/2024 10:00 AM EDT Office Visit Bariatric Surgery - [place] [address] [phone] Tavon Galdamez MD [address] [address] documented as of this encounter Visit Diagnoses Diagnosis Class 2 severe obesity due to excess calories with serious comorbidity and body mass index (BMI) of 38.0 to 38.9 in adult ([facility])- Primary documented in this encounter Historical Medications * This list may reflect changes made after this encounter. topiramate (TOPAMAX) 50 mg tablet Take 1 tablet (50 mg total) by mouth if needed. 06/17/2023 SUMAtriptan (IMITREX) 100 mg tablet Take 1 tablet (100 mg total) by mouth 1 (one) time if needed. simethicone (MYLICON) 125 mg chewable tablet Chew 1 tablet (125 mg total) every 6 (six) hours if needed. 03/20/2024 rizatriptan (MAXALT) 10 mg tablet Take 1 tablet (10 mg total) by mouth 1 (one) time if needed. nystatin (MYCOSTATIN) cream Apply 30 g topically 2 (two) times a day. 03/28/2024 magnesium oxide (MAG-OX) 400 mg (241.3 elemental magnesium) tablet Take 1 tablet (400 mg total) by mouth 1 (one) time each day. losartan (COZAAR) 50 mg tablet Take 2 tablets (100 mg total) by mouth 1 (one) time each day. Linzess 145 mcg capsule Take 1 capsule (145 mcg total) by mouth 1 (one) time each day in the morning. lansoprazole (PREVACID) [address] capsule Take 1 capsule (30 mg total) by mouth 1 (one) time each day. furosemide (LASIX) 40 mg tablet Take 1 tablet (40 mg total) by mouth if needed. diclofenac (VOLTAREN) 1 % topical gel Apply 2 g topically 2 (two) times a day. 12/21/2023 clotrimazole (LOTRIMIN) 1 % cream Apply 1 Application topically 2 (two) times a day. 09/07/2018 cephalexin (KEFLEX) 500 mg capsule Take 1 capsule (500 mg total) by mouth 2 (two) times a day. 09/07/2018 budesonide-formo teroL (SYMBICORT) 160-4.5 mcg/actuation inhaler Inhale 2 puffs by mouth if needed. 10/23/2020 amitriptyline (ELAVIL) 10 mg tablet Take 1 tablet (10 mg total) by mouth 1 (one) time each day with dinner. albuterol HFA (PROAIR HFA ; PROVENTIL HFA ; VENTOLIN HFA) 90 mcg/actuation inhaler Inhale 2 puffs by mouth if needed. acetaminophen (TYLENOL) 500 mg tablet Take 1 tablet (500 mg total) by mouth if needed. 11/03/2023 added in this encounter Care Teams Operations Welder Relationship Specialty Start Date End Date Daryn Duarte MD [address] [place] [address] [address] [place] PCP - General Internal Medicine 05/21/17 documented as of this encounter
== END 2024-05-10 16:37 | disposition home or self-care (01) ==
PROVIDERS: PCP Internal Medicine; Visit Provider Internal Medicine
DX: H66.91 Otitis media, unspecified, right ear (principal); M25.531 Pain in right wrist

== ENCOUNTER → 2024-05-10 15:43 | Outpatient (BNVA) | payer OTHER, SELFPAY | PROVIDERS: PCP Internal Medicine; Visit Provider Internal Medicine | DX: H66.91 Otitis media, unspecified, right ear (principal); M25.531 Pain in right wrist | CPT/HCPCS: 96127; 99212 ==

== ENCOUNTER 2024-05-12 10:50 | Outpatient (REF) | payer OTHER, SELFPAY ==
--- OUTSIDE RECORDS SUMMARY | 2024-05-12 11:31 | XMS_ITS | Encounter Summary ---
Author Organization [facility] Address [address] [place] [address] Care Team Providers Care Math And Science Division Chair Name Role Phone Daryn Duarte MD Primary Care Provider [phone] Reason for Visit * Reason Comments Consult New patient Encounter Details Date Type Department Care Team (Late st Contact Info) Description 04/21/2024 9:00 AM EST Office Visit Bariatric Surgery - [place] [address] [phone] Tavon Galdamez MD 175 [facility] [address] [place] [address] Class 2 severe obesity due to excess [...] (BMI) of 38.0 to 38.9 in adult (CMS/[facility]) Inject 0.5 mL (2.5 mg total) under [...] have a hiatal hernia (sees gastroenterology at [facility]) Any limitations/disabilities precluding exercise: arthritis Current exercise [...] index (BMI)of 38.0 to 38.9 in adult (CMS/[facility]) PLAN: 1. The patient is a good [...] 1:30 PM EST Nutrition Bariatric Surgery - [place] [address] [phone] [address] 08/23/2024 10:00 AM EDT Office Visit Bariatric Surgery - [place] [address] [phone] Tavon Galdamez MD [address] [address] documented as of this encounter Visit Diagnoses Diagnosis Class 2 severe obesity due to excess calories with serious comorbidity and body mass index (BMI) of 38.0 to 38.9 in adult ([facility])- Primary documented in this encounter Historical Medications [...] 11/03/2023 added in this encounter Care Teams Math And Science Division Chair Relationship Specialty Start Date End Date Daryn Duarte MD [address] [place] [address] [address] [place] PCP - General Internal Medicine 05/21/17 documented as of this encounter
--- OUTSIDE RECORDS SUMMARY | 2024-05-12 11:31 | XMS_ITS | Encounter Summary ---
Author Organization [employer] Address [address] [place] [address] Care Team Providers Care Forest Manager Name Role Phone Daryn Duarte MD Primary Care Provider [phone] Reason for Visit * Reason Comments Obesity Encounter Details Date Type Department Care Team (Late st Contact Info) Description 05/02/2024 10:30 AM EST Nutrition Bariatric Surgery - [place] [address] [phone] Yun Hernandez, RD [address] [address] Class 2 obesity with body mass index [...] in the computer. You can go to [facility] at [address] [place] [address], [address], when you are ready. They open at 7:30am. You can also go to another [facility] lab that may be more conveniently located. No food/drink after midnight please - these are fasting labs. NO GUM, CANDY, MINTS, TUMS, OR WATER FOR ONE HOUR BEFORE! You have a pendinghpylori lab. If you would like, you can join our Facebook group [facility] Bariatric Support Group. (It has a picture of a yellow shirt with a tape measure). Support group (Facebook): Please watch the videos I posted on the FB page (use the magnifying glassto search for [facility] Bariat[facility] Diet[facility] to locate my posts and [...] from 5:30-6:30pm in the second-floor cafeteria of [address] [place] [address]. No need tosign up, feel free to just show up. Psych eval: You have two options for your psychological evaluation Dr. Carin Gillespie [phone] [place] [place], [facility] [phone]. Both are doing remote visits. Call either one and let them know you are in the [facility] Bariatric Program and need a [...] your primary care office is *not* within [facility], please ask them to fax their office note to [phone]. Patient-created Goals: Surgeon sent prescription for iron Fluid goal: 64 ounces daily, slowly sip- limit juice or switch to diet juice Please check with your television antenna installer regarding protein guidance (our guidance is typically 60-80g daily) Aim to include protein every time you eat to help with appetite https://www.[employer].org/get-help/trzbzt-duuv-hkpl/ Use protein handout to learn protein content of different foods May purchase a food scale * Yun Hernandez RD - 05/02/2024 10:30 AM EST NUTRITION FOLLOW-UP NOTE: Patient Name: Roxie Hobbs Date of : 1965 Date of Service: 05/02/2024 SURGEON: Dr. Haydee Espinosa, Dr. Galdamez for medication DESIRED SURGERY: Sleeve gastrectomy Would need nephrology clearance CKD III- told from television antenna installer to increase water and minimize salt (encouraged pt to talk to television antenna installer to discuss protein guidance apt 05/18/23) Started [...] to diet juice Please check with your television antenna installer regarding protein guidance (our guidance is typically 60-80g daily) Aim to include protein every time you eat to help with appetite https://www.[employer].org/get-help/ocjkgo-getw-cdua/ Use protein handout to learn protein content [...] (>50% of the time spent) in direct kgpt-xh-ogey consultation for counseling, reviewing medical record and/or coordinating the plan as described above. Yun Hernandez RD NUTRITION SERVICES Cosigned by Tavon Galdamez MD at 05/02/2024 4:05 PM EST documented in this encounter Plan of Treatment Upcoming Encounters Date Type Department Care Team (Late st Contact Info) Description 05/30/2024 1:30 PM EST Nutrition Bariatric Surgery - [place] [address] [phone] [address] 08/23/2024 10:00 AM EDT Office Visit Bariatric Surgery [facility] [address] [phone] Tavon Galdamez MD [address] [address] Scheduled Orders Name Type Priority Associated Diagnoses [...] Primary documented in this encounter Care Teams Forest Manager Relationship Specialty Start Date End Date Daryn Duarte MD [address] [place] [address] Dr [address] ABIGAIL Charles PCP - General Internal Medicine 05/21/17 documented as of this encounter
--- OUTSIDE RECORDS SUMMARY | 2024-05-12 11:31 | XMS_ITS | Encounter Summary ---
Author Organization [employer] [place] [address] Care Team Providers Care Furnace Operator [employer] Name Role Phone Daryn Duarte MD Primary Care Provider [phone] Encounter Details Date Type Department Care Team (Late Contact Info) Description 04/18/2024 8:45 AM EST Lab Draw Station - [address] [facility] [address] 175 [facility] [address] [place] [address] Class 2 obesity with body [...] 1:30 PM EST Nutrition Bariatric Surgery - [place] [address] [phone] Yun Hernandze, SHIRA [address] [address] 08/23/2024 10:00 AM EDT Office Visit Bariatric Surgery - [place] [address] [phone] Tavon Galdamez MD [address] [address] Scheduled Orders Name Type Priority Associated Diagnoses [...] CBC auto differential (04/18/2024 8:43 AM EST) [facility] WBC 5.9 4.8 - 10.8 K/mcL LAB HEMETOLOGY METHOD 04/18/2024 9:51 AM [facility] RBC 4.70 3.80 - 4.80 M/mcL LAB HEMETOLOGY METHOD 04/18/2024 9:51 AM [facility] Hemoglobin 13.7 11.5 - 16.0 g/dL LAB HEMETOLOGY METHOD 04/18/2024 9:51 AM [facility] Hematocrit 44.0 35.0 - 47.0 % LAB HEMETOLOGY METHOD 04/18/2024 9:51 AM [facility] MCV 93.2 79.0 - 98.0 FL LAB HEMETOLOGY METHOD 04/18/2024 9:51 AM [facility] MCH 29.0 27.0 - 32.0 pcg LAB HEMETOLOGY METHOD 04/18/2024 9:51 AM [facility] MCHC 31.1(L) 32.0 - 37.0 g/dL LAB HEMETOLOGY METHOD 04/18/2024 9:51 AM [facility] RDW 13.7 11.0 - 15.0 % LAB HEMETOLOGY METHOD 04/18/2024 9:51 AM [facility] Platelets 190 130 - 400 K/mcL LAB HEMETOLOGY METHOD 04/18/2024 9:51 AM [facility] MPV 11.0 7.0 - 11.0 FL LAB HEMETOLOGY METHOD 04/18/2024 9:51 AM [facility] NRBC 0.0 <1.0 % LAB HEMETOLOGY METHOD 04/18/2024 9:51 AM [facility] NRBC Absolute 0.00 <0.10 K/mcL LAB HEMETOLOGY METHOD 04/18/2024 9:51 AM [facility] Neutrophils Relative 59.9 % LAB HEMETOLOGY METHOD 04/18/2024 9:51 AM [facility] Lymphocytes Relative 28.2 % LAB HEMETOLOGY METHOD 04/18/2024 9:51 AM [facility] Monocytes Relative 7.9 % LAB HEMETOLOGY METHOD 04/18/2024 9:51 AM [facility] Eosinophils Relative 3.2 % LAB HEMETOLOGY METHOD 04/18/2024 9:51 AM [facility] Basophils Relative 0.5 % LAB HEMETOLOGY METHOD 04/18/2024 9:51 AM [facility] Immature Granulocytes Relative 0.3 % LAB HEMETOLOGY METHOD 04/18/2024 9:51 AM [facility] Neutrophils Absolute 3.55 1.50 - 7.00 K/mcL LAB HEMETOLOGY METHOD 04/18/2024 9:51 AM [facility] Lymphocytes Absolute 1.67 1.00 - 5.00 K/mcL LAB HEMETOLOGY METHOD 04/18/2024 9:51 AM [facility] Monocytes Absolute 0.47 0.20 - 1.00 K/mcL LAB HEMETOLOGY METHOD 04/18/2024 9:51 AM [facility] Eosinophils Absolute 0.19 0.00 - 0.50 K/[facility] LAB HEMETOLOGY METHOD 04/18/2024 9:51 AM EST [facility] Basophils Absolute 0.03 0.00 - 0.20 K/[facility] LAB HEMETOLOGY METHOD 04/18/2024 9:51 AM EST [facility] Immature Granulocytes Absolute 0.02 0.00 - 0.03 K/[facility] LAB HEMETOLOGY METHOD 04/18/2024 9:51 AM EST [facility] Blood Venous blood specimen / Unknown Venipuncture / Unknown 04/18/2024 8:43 AM EST 04/18/2024 8:44 AM EST us Haydee Espinosa MD LAB BLOOD ORDERABLES Fi nal Result Performing Organization Address City/[facility]/ZIP Co de Phone Number [facility] [address] [place] [address], [place] [phone] * Vitamin D 25 hydroxy (04/18/2024 8:43 AM EST) Vit D, 25-Hydroxy 31.6 30.0 - 80.0 ng/mL LAB CHEMISTRY METHOD 04/18/2024 10:29 AM EST [facility] Blood Venous blood specimen / Unknown Venipuncture / Unknown 04/18/2024 8:43 AM EST 04/18/2024 8:44 AM EST Haydee Espinosa MD LAB BLOOD ORDERABLES Fi nal Result [facility] [address] [place] [address], [place] [phone] * Vitamin B12 (04/18/2024 8:43 AM EST) Vitamin B-12 316 250 - 900 pcg/mL LAB CHEMISTRY METHOD 04/18/2024 10:44 AM EST [facility] Blood Venous blood specimen / Unknown Venipuncture / Unknown 04/18/2024 8:43 AM EST 04/18/2024 8:44 AM EST us Haydee Espinosa MD LAB BLOOD ORDERABLES Fi nal Result Performing Organization Address [facility] de Phone Number [facility] [address] [place] [address], * Vitamin B1 (04/18/2024 8:43 AM EST) Vitamin B1 Whole Blood 88 38 - 122 ug/L 04/22/2024 4:47 AM EST [facility] Comment: This test was developed and the performance characteristics determined by [facility]. It has not been cleared or approved by the FDA. The laboratory is regulated under CLIA as qualified to perform high-complexity testing. This test is used for patient testing purposes. It should not be regarded as investigational or for research. Test performed at [facility], [address] [place], [place] ??[address] ? [phone] Faiza Narvaez MD, PhD - Manager Package Blood Venous blood specimen / Unknown Venipuncture / Unknown 04/18/2024 8:43 AM EST 04/18/2024 8:44 AM EST us Haydee Espinosa MD LAB BLOOD ORDERABLES Fi nal Result Performing Organization Address City/[facility] Co de Phone Number [facility] [address] [place] [address] * (ABNORMAL) Thyroid stimulating hormone (04/18/2024 8:43 AM EST) TSH 4.79(H) 0.40 - 4.00 mcIU/mL LAB CHEMISTRY METHOD 04/18/2024 10:30 AM EST [facility] Blood Venous blood specimen / Unknown Venipuncture / Unknown 04/18/2024 8:43 AM EST 04/18/2024 8:44 AM EST us Haydee Espinosa MD LAB BLOOD ORDERABLES Fi nal Result [facility]) [facility] [address] [place] [address], * Nicotine and cotinine (04/18/2024 8:43 AM [...] ?<2 ng/mL Reference Ranges from: ??Clin. Chem.; ??[phone] (2002) Direct any interpretive questions to the toxicology laboratory. This is for medical use only, it is not intended for forensic use. If applicable, any drug confirmation testing reported here was developed and the performance characteristics determined by [facility]. This confirmation testing has not been cleared or approved by the FDA. The laboratory is regulated under CLIA as qualified to perform high-complexity testing. This test is used for patient testing purposes. It should not be regarded as investigational or for research. Test performed at [facility], [address] , [place], [place] ??[address] ? [phone] Faiza Narvaez MD, PhD - Manager Package Blood Venous blood specimen / Unknown Venipuncture / Unknown 04/18/2024 8:43 AM EST 04/18/2024 8:44 AM EST Haydee Espinosa MD LAB BLOOD ORDERABLES Fi nal Result [facility] [address] [place] [address] * (ABNORMAL) Magnesium (04/18/2024 8:43 AM EST) Magnesium 1.8(L) 1.9 - 2.6 mg/dL LAB CHEMISTRY METHOD 04/18/2024 10:22 AM EST [facility] Blood Venous blood specimen / Unknown Venipuncture / Unknown 04/18/2024 8:43 AM EST 04/18/2024 8:44 AM EST us Haydee Espinosa MD LAB BLOOD ORDERABLES Fi nal Result Performing Organization Address City/[facility]/ZIP Co de Phone Number [facility] [address] [place] [address], * (ABNORMAL) Lipid panel with reflex to direct LDL (04/18/2024 8:43 AM EST) Cholesterol 181 0 - 200 mg/dL LAB CHEMISTRY METHOD 04/18/2024 10:22 AM EST [facility] Triglycerides 90 0 - 150 mg/dL LAB CHEMISTRY METHOD 04/18/2024 10:22 AM EST [facility] HDL 58 >=40 mg/dL LAB CHEMISTRY METHOD 04/18/2024 10:22 AM EST [facility] LDL Calculated 105(H) 0 - 100 mg/dL LAB CHEMISTRY METHOD 04/18/2024 10:22 AM EST [facility] VLDL Cholesterol Gerhard 18 mg/dL LAB CHEMISTRY METHOD 04/18/2024 10:22 AM [facility] Non HDL Chol. (LDL+VLDL) 123 <145 mg/dL LAB CHEMISTRY METHOD 04/18/2024 10:22 AM [facility] Chol/HDL Ratio 3.1 0.0 - 4.4 LAB CHEMISTRY METHOD 04/18/2024 10:22 AM [facility] Blood Venous blood specimen / Unknown Venipuncture / Unknown 04/18/2024 8:43 AM EST 04/18/2024 8:44 AM EST us Haydee Espinosa MD LAB BLOOD ORDERABLES Fi nal Result Performing Organization Address City/[facility]/ZIP Co de Phone Number [facility] [address] [place] [address], [place] [phone] * (ABNORMAL) Iron and TIBC (04/18/2024 8:43 AM EST) Iron 37(L) 40 - 150 mcg/dL LAB CHEMISTRY METHOD 04/18/2024 10:22 AM [facility] TIBC 321 250 - 450 mcg/dL LAB CHEMISTRY METHOD 04/18/2024 10:22 AM EST [facility] Iron Saturation 12(L) 15 - 50 % LAB CHEMISTRY METHOD 04/18/2024 10:22 AM EST [facility] Blood Venous blood specimen / Unknown Venipuncture / Unknown 04/18/2024 8:43 AM EST 04/18/2024 8:44 AM EST us Haydee Espinosa MD LAB BLOOD ORDERABLES Fi nal Result [facility] [address] [place] [address], [place] [phone] * Hemoglobin A1c (04/18/2024 8:43 AM EST) [facility] Hemoglobin A1C 6.1 <6.5 % LAB CHEMISTRY METHOD 04/18/2024 1:32 PM EST [facility] Mean Bld Glu Estim. 128 mg/dL LAB CHEMISTRY METHOD 04/18/2024 1:32 PM EST [facility] Blood Venous blood specimen / Unknown Venipuncture / Unknown 04/18/2024 8:43 AM EST 04/18/2024 8:44 AM EST us Haydee Espinosa MD LAB BLOOD ORDERABLES Fi nal Result Performing Organization Address City/[facility]/ZIP Co de Phone Number [facility] [address] [place] [address], [place] [phone] * (ABNORMAL) Folate (04/18/2024 8:43 AM EST) [facility] Folate >20.0(H) 2.8 - 17.0 ng/ml LAB CHEMISTRY METHOD 04/18/2024 10:44 AM EST [facility] Blood Venous blood specimen / Unknown Venipuncture / Unknown 04/18/2024 8:43 AM EST 04/18/2024 8:44 AM EST Haydee Espinosa MD LAB BLOOD ORDERABLES Fi nal Result [facility] [address] [place] [address], [place] [phone] * Ferritin (04/18/2024 8:43 AM EST) [facility] Ferritin 52 8 - 252 ng/mL LAB CHEMISTRY METHOD 04/18/2024 10:22 AM EST [facility] Blood Venous blood specimen / Unknown Venipuncture / Unknown 04/18/2024 8:43 AM EST 04/18/2024 8:44 AM EST us Haydee Espinosa MD LAB BLOOD ORDERABLES Fi nal Result Performing Organization Address [facility] de Phone Number [facility] [address] [place] [address], * Cortisol (04/18/2024 8:43 AM EST) Cortisol 11.6 mcg/dL LAB CHEMISTRY METHOD 04/18/2024 10:30 AM EST [facility] Blood Venous blood specimen / Unknown Venipuncture / Unknown 04/18/2024 8:43 AM EST 04/18/2024 8:44 AM EST Narrative [facility] - 04/18/2024 10:30 AM EST CORTISOL REFERENCE RANGE ?? 8 AM SPEC: ??5.0-23.0 mcg/dL ?? 4 PM SPEC: ??3.0-16.0 mcg/dL ?? 8 PM SPEC: ??<5.0 mcg/dL us Haydee Espinosa MD LAB BLOOD ORDERABLES Fi nal Result Performing Organization Address [facility] de Phone Number [facility] [address] [place] [address], [place] [phone] * (ABNORMAL) Comprehensive metabolic panel (04/18/2024 8:43 AM EST) Sodium 140 133 - 145 mmol/L LAB CHEMISTRY METHOD 04/18/2024 10:22 AM EST [facility] Potassium 4.6 3.5 - 5.5 mmol/L LAB CHEMISTRY METHOD 04/18/2024 10:22 AM EST [facility] Chloride 106 96 - 110 mmol/L LAB CHEMISTRY METHOD 04/18/2024 10:22 AM EST [facility] CO2 30 21 - 32 mmol/L LAB CHEMISTRY METHOD 04/18/2024 10:22 AM [facility] Anion Gap 4 3 - 11 LAB CHEMISTRY METHOD 04/18/2024 10:22 AM [facility] Glucose 90 70 - 100 mg/dL LAB CHEMISTRY METHOD 04/18/2024 10:22 AM [facility] BUN 31(H) 5 - 25 mg/dL LAB CHEMISTRY METHOD 04/18/2024 10:22 AM [facility] Creatinine 2.11(H) 0.50 - 1.10 mg/dL LAB CHEMISTRY METHOD 04/18/2024 10:22 AM [facility] eGFR 27(L) >=60 mL/min/1. 73m2 LAB CHEMISTRY METHOD 04/18/2024 10:22 AM [facility] Comment:Calculation based on the??Chronic Kidney Disease Epidemiology Collaboration (CKD-EPI) equation refit??without adjustment for race. BUN/Creatinine Ratio 14.7 LAB CHEMISTRY METHOD 04/18/2024 10:22 AM [facility] Calcium 9.2 8.5 - 10.5 mg/dL LAB CHEMISTRY METHOD 04/18/2024 10:22 AM [facility] AST (SGOT) 18 10 - 42 unit/L LAB CHEMISTRY METHOD 04/18/2024 10:22 AM [facility] ALT (SGPT) 21 10 - 60 unit/L LAB CHEMISTRY METHOD 04/18/2024 10:22 AM [facility] Alkaline Phosphatase 112 42 - 121 unit/L LAB CHEMISTRY METHOD 04/18/2024 10:22 AM [facility] Total Protein 6.5 6.0 - 8.0 g/dL LAB CHEMISTRY METHOD 04/18/2024 10:22 AM [facility] Albumin 3.4 3.2 - 5.0 g/dL LAB CHEMISTRY METHOD 04/18/2024 10:22 AM [facility] Total Bilirubin 0.2 0.0 - 1.4 mg/dL LAB CHEMISTRY METHOD 04/18/2024 10:22 AM EST [facility] Blood Venous blood specimen / Unknown Venipuncture / Unknown 04/18/2024 8:43 AM EST 04/18/2024 8:44 AM EST us Haydee Espinosa MD LAB BLOOD ORDERABLES Fi nal Result [facility] [address] [place] [address], [place] [phone] documented in this encounter Visit Diagnoses Diagnosis Class 2 obesity with body mass index (BMI) of 39.0 to 39.9 in adult, unspecified obesity type, unspecified whether serious comorbidity present documented in this encounter Care Teams Furnace Operator [employer] Relationship Specialty Start Date End Date Daryn Duarte MD [address] [place] [address] Dr Molina [facility] [place], [place] PCP - General Internal Medicine 05/21/17 documented as of this encounter
--- OUTSIDE RECORDS SUMMARY | 2024-05-12 11:31 | XMS_ITS | Data Portability ---
Author Organization [place] - [facility], Allergy Address [address] [place] [phone] Assessment No assessment recorded. Plan of Treatment [...] Time Disorder of right Eustachia n tube [id number] Active 2019 Other specified disorders of Eustachia n tube, right ear; Note: Date Diagnosed : 04/13/2019 3:52 PM (H69.81) Not Available [facility] 4 02:31:20 Migraine without aura, not refractor y 441367438 Active 2019 Migraine without aura, not intractab le, without status migrainos us; Note: Date Diagnosed : 04/13/2019 3:52 PM (G43.009) Not Available [facility] 4 02:31:10 Otalgia of right ear 4723102886 Active 2019 Otalgia, right ear; Note: Date Diagnosed : 04/13/2019 3:52 PM (H92.01) Not Available [facility] 4 02:31:19 Mass of neck 781724534 Active 2019 Localized swelling, mass and lump, neck; Note: Date Diagnosed : 06/09/2019 4:03 PM (R22.1) Not Available [facility] 4 02:31:13 Neck swelling 723011850 Active 2019 Localized swelling, mass and lump, neck; Note: Date Diagnosed : 06/09/2019 4:03 PM (R22.1) Not Available [facility] 4 02:31:13 Temporoma ndibular joint disorder 37788369 Active 2019 Other specified disorders of temporoma ndibular joint; Note: Date Diagnosed : 04/13/2019 3:57 PM (M26.69) Not Available [facility] 4 02:31:12 Tinnitus of right ear 57827441815 08 Active 2019 Tinnitus, right ear; Note: Date Diagnosed : 04/13/2019 3:52 PM (H93.11) Not Available [facility] 4 02:31:24 Severe obesity 42761454961 104 Active 2019 Morbid (severe) obesity due to excess calories; Note: Date Diagnosed : 04/13/2019 3:52 PM (E66.01) Not Available [facility] 4 02:31:11 Problem Notes None recorded. Procedures Surgical History None recorded. Imaging Results Imaging Date Name Status LastModified by Organiz ation Details LastModified Time 08/03/2023 MRI, head + neck + orbits, w/wo contrast [email or web address] Information not available 10/20/2023 11:27:36 04/13/2019 audiogram [...] Name and Address Organization Details Recorded Time 69884 morphine medicatio n other Not available Not available 08/11/2023 7052 RxNorm React ion: unkno wn, unspe cifie d;; Not Available [facility] 4 00:59:01 Medications Name Sig Start Date Stop Date Status Note LastModified by Organization Details LastModified Time losartan 50 mg tablet Take 1 tablet (50 mg total) by mouth in the morning and 1 tablet (50 mg total) in the evening. active Not Available Not Available No t Available furosemid e 40 mg tablet 2019 active Medicati on ID: [id number] D uration Value: 30 Brand Name: furosemjesse de Send Method: E-Prescr ibed Sub s Allowed: subs OK Speci al Instruct ion: TAKE ONE TABLET BY MOUTH ONCE DAILY Me dication GenericN zoe: furosemi de Not Available Not Available Not Available ranitidin e 300 mg tablet 2019 active Medicati on ID: 430129 D uration Value: 30 Brand Name: ranitidi ne HCl Send Method: E-Prescr ibed Sub s Allowed: subs OK Speci al Instruct ion: TAKE ONE TABLET BY MOUTH ONCE A DAY Medi cationGe nericNam e: ranitidi ne HCl Not Available Not Available Not Available sumatript an 100 mg tablet 2019 active Medicati on ID: 282082 D uration Value: 30 Brand Name: sumatrip [...] mg tablet 2020 active Medicati on ID: 989987 B rand Name: famotidi ne Send Method: [...] mg tablet 2019 active Medicati on ID: 869563 D uration Value: 30 Brand Name: amlodipi [...] mg tablet 2020 active Medicati on ID: 596835 B rand Name: dicyclom ine Send Method: [...] mg capsule 2020 active Medicati on ID: 434149 B rand Name: docusate sodium S end [...] nasal spray 2020 active Medicati on ID: 203467 B rand Name: ipratrop ium bromide Send [...] Available Senexon 2019 active Medicati on ID: 324824 D uration Value: 30 Brand Name: True Send Method: E-Prescr ibed Sub s Allowed: subs ADENIKE Yip al Instruct ion: TAKE 2 TABLETS BY MOUTH ONCE A DAY AT BEDTIME NEEDED Eleonora Cosby Name: True Not Available Not Available Not Available Doc-Q-Lac e 05/28 completed Medicati on ID: 900328 D uration Value: 30 Brand Name: Doc-Q-La [...] unit) capsule 2019 active Medicati on ID: 605546 D uration Value: 30 Brand Name: D3 Send Method: E-Prescr ibed Sub s Allowed: subs ADENIKE Yip al Instruct ion: TAKE ONE CAPSULE BY MOUTH DAILY Me dication GenericN zoe: D3-2000 Not Available Not Available Not Available Cerovite Senior 0.4 mg-300 mcg-250 mcg tablet 2019 active Medicati on ID: 430231 D uration Value: 30 Brand Name: Cerovite [...] mcg capsule 2019 active Medicati on ID: 557985 D uration Value: 30 Brand Name: Elías [...] Updated DateTime 09/28/2023 154.94 cm 38.4 kg/m2 86972.25 g Pati Daly [place] - [facility] 09/28/2023 13:08:36 Social History None recorded. [...] Note [id number] JIMENA HERRERA MD [facility] of [address] [phone] 09/28/2023 13:02:32 09/28/2023 17:08:11 Mass of neck [id number] R22.1 58-year-ol d female presents today for [...] Ramsey Member ID Guarantor Name 09/28/2023 1 [facility] [place] DOS ON OR AFTER 2022 - ONE CARE (MEDICARE REPLACEMENT/ADV ANTAGE - HMO) Roxie Hobbs [id number] Roxie Hobbs Notes Date Note Type Note [...] not recall having this. JIMENA HERRERA MD [address] [place] [address], [place], [address], [place] - [facility] 10/07/2023 08:39:38 OBGyn Episode No OBEpisode recorded.
--- OUTSIDE RECORDS SUMMARY | 2024-05-12 11:31 | XMS_ITS | Encounter Summary ---
Author Organization [employer] Address [address] [place] [address] Care Team Providers Care Customer Engineer Name Role Phone Daryn Duarte MD Primary Care Provider [phone] Reason for Visit * Reason Onset Date Comments Prior auth 04/21/2024 Prior auth Encounter Details Date Type Department Care Team (Late st Contact Info) Description 04/21/2024 Telephone Bariatric Surgery - [place] [address] [facility] [address] [place] [phone] Tavon Galdamez MD [address] [facility] [address] [place] [address] Prior auth (Prior auth) Social History Tobacco [...] 1:30 PM EST Nutrition Bariatric Surgery - [place] [address] [phone] [address] 08/23/2024 10:00 AM EDT Office Visit Bariatric Surgery - [place] [address] [phone] Tavon Galdamez MD [address] [address] documented as of this encounter Visit Diagnoses Not on filedocumented in this encounter Care Teams Customer Engineer Relationship Specialty Start Date End Date Daryn Duarte MD [address] [place] [address] Dr [address] [place], [place] PCP - General Internal Medicine 05/21/17 documented as of this encounter
--- OUTSIDE RECORDS SUMMARY | 2024-05-12 11:31 | XMS_ITS | Clinical Summary ---
Author Organization [facility] Address [address] [place] [address] Phone Care Team Providers Care Ice Cutter Name Role Phone Daryn Duarte MD Primary Care Provider [phone] Allergies Active Allergy Reactions Criticality Noted Date [...] 2 Active Cholecalciferol (Vitamin D3) 250 MCG (96806 UT) tablet Take by mouth Activ e [...] (#1) 2023 Insurance (A2793) ([id number]) Care Teams Ice Cutter Relationship Specialty Start Date End Date Daryn Duarte MD [address] [place] [address] PCP - General 04/09/20
--- OUTSIDE RECORDS SUMMARY | 2024-05-12 11:31 | XMS_ITS | Encounter Summary ---
Author Organization [facility] Address [address] [place] [address] Phone Care Team Providers Care Supervisor Vat House Name Role Phone Daryn Duarte MD Primary Care Provider [phone] Encounter Details Date Type Department Care Team (Late st Contact Info) Description 11/19/2021 Telephone [facility] [address] [place] [phone] Mati Durbin MD Social History Tobacco Use [...] your suggestion. Please advise Thank you CB# [phone] Thank you documented in this encounter Plan of Treatment Not on file documented as of this encounter Visit Diagnoses Not on filedocumented in this encounter Care Teams Supervisor [facility]at House Relationship Specialty Start Date End Date Daryn Duarte MD [address] [place] [address] [address] [place] [address] PCP - General 04/09/20 documented as of this encounter
--- OUTSIDE RECORDS SUMMARY | 2024-05-12 11:31 | XMS_ITS | Clinical Summary ---
Author Organization 175 [facility] Address 175 [place] [address] Phone Care Team Providers Care Compensation Business Partner Name Role Phone Daryn Duarte MD Primary Care Provider [phone] Allergies Active Allergy Reactions Criticality Noted Date [...] 2 puffs by mouth if needed. 10/24/19 21 Active cephalexin (KEFLEX) 500 mg capsule Take [...] 06/17/19 24 Active tirzepatide, weight loss, (Zepbound) 5 mg/0.5 mL injection Inject 0.5 mL (5 mg total) under the skin every 7 (seven) days for 28 days. 2 mL 05/10/19 25 025 Active tirzepatide, weight loss, (Zepbound) 2.5 mg/0.5 mL injectionIndica tions:Class 2 severe obesity due to excess calories with serious comorbidity and body mass index (BMI) of 38.0 to 38.9 in adult ([facility]) Inject 0.5 mL (2.5 mg [...] Care Team Description 05/10/2024 Telephone Bariatric Surgery [address] [phone] Tavon Galdamez MD Med Refill (zepbound) 05/02/2024 10:30 AM EST Nutrition Bariatric Surgery [address] [phone] Class 2 obesity with body mass index (BMI) of 38.0 to 38.9 in adult, unspecified obesity type, unspecified whether serious comorbidity present (Primary Dx) 04/21/2024 9:00 AM EST Office Visit Bariatric Surgery [address] [phone] Tavon Galdamez MD Class 2 severe obesity due to excess calories with serious comorbidity and body mass index (BMI) of 38.0 to 38.9 in adult ([facility]) (Primary Dx) 04/21/2024 Telephone Bariatric Surgery - [address] [phone] Tavon Galdamez MD Prior auth (Prior auth) 04/18/2024 8:45 AM EST Lab Draw Station - [address] [place] [address] [address] [place] [phone] Class 2 obesity with body mass index (BMI) of 39.0 to 39.9 in adult, unspecified obesity type, unspecified whether serious comorbidity present 03/31/2024 1:30 PM EST Nutrition Bariatric Surgery - [address] [phone] Class 2 obesity with [...] 05/30/2024 1:30 PM EST Nutrition Bariatric Surgery [address] [phone] [address] 08/23/2024 10:00 AM EDT Office Visit Bariatric Surgery [address] [phone] Tavon Galdamez MD [address] [place] [phone] Health Maintenance Due Date Last Done Comments Breast Cancer Screening 1966 Hepatitis B Vaccines (1 of 3 - 19+ 3-dose series) 1985 Cervical Cancer Screening: Pap Smear 1987 Pneumococcal Vaccine: 50+ Years (2 of 2 - PCV) 12/31/2007 12/30/2006 Pneumococcal Vaccine: Pediatrics (0 to 5 Years) and At-Risk Patients (6 to 64 Years) (2 of 2 - PCV) 12/31/2007 12/30/2006 Zoster Vaccines (1 of 2) 2016 DTaP,Tdap,and Td Vaccines (2 - Td or Tdap) 07/30/2021 07/31/2011 Colorectal Cancer Screening: Colonoscopy 03/02/2022 Depression Screening [...] to direct LDL (04/18/2024 8:43 AM EST) [facility] Cholesterol 181 0 - 200 mg/dL LAB CHEMISTRY METHOD 04/18/2024 10:22 AM EST [facility] Triglycerides 90 0 - 150 mg/dL LAB CHEMISTRY METHOD 04/18/2024 10:22 AM EST [facility] HDL 58 >=40 mg/dL LAB CHEMISTRY METHOD 04/18/2024 10:22 AM EST [facility] LDL Calculated 105(H) 0 - 100 mg/dL LAB CHEMISTRY METHOD 04/18/2024 10:22 AM [facility] VLDL Cholesterol Gerhard 18 mg/dL LAB CHEMISTRY METHOD 04/18/2024 10:22 AM EST [facility] Non HDL Chol. (LDL+VLDL) 123 <145 mg/dL LAB CHEMISTRY METHOD 04/18/2024 10:22 AM [facility] Chol/HDL Ratio 3.1 0.0 - 4.4 LAB CHEMISTRY METHOD 04/18/2024 10:22 AM [facility] Blood Venous blood specimen / Unknown Venipuncture / Unknown 04/18/2024 8:43 AM EST 04/18/2024 8:44 AM EST Haydee Espinosa MD LAB BLOOD ORDERABLES Fi nal Result [facility] [address] [place] [address], * Nicotine and cotinine (04/18/2024 8:43 AM EST) Pathologist [facility] Nicotine <2.0 <2.0 ng/mL 04/23/2024 9:59 AM EST [facility] Cotinine <2.0 <2.0 ng/mL 04/23/2024 9:59 AM EST [facility] Comment: ?Additional Reference Ranges: ? Active Tobacco ? Passive ? Abstinence ?User ?Exposure ?? 2 Weeks and more ? Nicotine ?30 - 50 ??ng/mL ?<2 ng/mL ?<2 ng/mL Cotinine ?? 200 - 800 ng/mL ?<8 ng/mL ?<2 ng/mL Reference Ranges from: ??Clin. Chem.; ??[id number] (2002) Direct any interpretive questions to the toxicology laboratory. This is for medical use only, it is not intended for forensic use. If applicable, any drug confirmation testing reported here was developed and the performance characteristics determined by [facility]. This confirmation testing has not been cleared or approved by the FDA. The laboratory is regulated under CLIA as qualified to perform high-complexity testing. This test is used for patient testing purposes. It should not be regarded as investigational or for research. Test performed at [facility], [address] [place], [place] ??[address] ? [phone] Faiza Narvaez MD, PhD - [facility] Blood Venous blood specimen / Unknown Venipuncture / Unknown 04/18/2024 8:43 AM EST 04/18/2024 8:44 AM EST us Haydee Espinosa MD LAB BLOOD ORDERABLES Fi nal Result [facility] [address] [place] [address] * (ABNORMAL) CBC auto differential (04/18/2024 8:43 AM EST) WBC 5.9 4.8 - 10.8 K/[facility] LAB HEMETOLOGY METHOD 04/18/2024 9:51 AM EST [facility] RBC 4.70 3.80 - 4.80 M/mcL LAB HEMETOLOGY METHOD 04/18/2024 9:51 AM [facility] Hemoglobin 13.7 11.5 - 16.0 g/dL LAB HEMETOLOGY METHOD 04/18/2024 9:51 AM [facility] Hematocrit 44.0 35.0 - 47.0 % LAB HEMETOLOGY METHOD 04/18/2024 9:51 AM [facility] MCV 93.2 79.0 - 98.0 FL LAB HEMETOLOGY METHOD 04/18/2024 9:51 AM [facility] MCH 29.0 27.0 - 32.0 pcg LAB HEMETOLOGY METHOD 04/18/2024 9:51 AM [facility] MCHC 31.1(L) 32.0 - 37.0 g/dL LAB HEMETOLOGY METHOD 04/18/2024 9:51 AM [facility] RDW 13.7 11.0 - 15.0 % LAB HEMETOLOGY METHOD 04/18/2024 9:51 AM [facility] Platelets 190 130 - 400 K/mcL LAB HEMETOLOGY METHOD 04/18/2024 9:51 AM [facility] MPV 11.0 7.0 - 11.0 FL LAB HEMETOLOGY METHOD 04/18/2024 9:51 AM [facility] NRBC 0.0 <1.0 % LAB HEMETOLOGY METHOD 04/18/2024 9:51 AM [facility] NRBC Absolute 0.00 <0.10 K/[facility] LAB HEMETOLOGY METHOD 04/18/2024 9:51 AM [facility] Neutrophils Relative 59.9 % LAB HEMETOLOGY METHOD 04/18/2024 9:51 AM [facility] Lymphocytes Relative 28.2 % LAB HEMETOLOGY METHOD 04/18/2024 9:51 AM [facility] Monocytes Relative 7.9 % LAB HEMETOLOGY METHOD 04/18/2024 9:51 AM EST [facility] Eosinophils Relative 3.2 % LAB HEMETOLOGY METHOD 04/18/2024 9:51 AM [facility] Basophils Relative 0.5 % LAB HEMETOLOGY METHOD 04/18/2024 9:51 AM [facility] Immature Granulocytes Relative 0.3 % LAB HEMETOLOGY METHOD 04/18/2024 9:51 AM [facility] Neutrophils Absolute 3.55 1.50 - 7.00 K/mcL LAB HEMETOLOGY METHOD 04/18/2024 9:51 AM [facility] Lymphocytes Absolute 1.67 1.00 - 5.00 K/mcL LAB HEMETOLOGY METHOD 04/18/2024 9:51 AM [facility] Monocytes Absolute 0.47 0.20 - 1.00 K/mcL LAB HEMETOLOGY METHOD 04/18/2024 9:51 AM EST [facility] Eosinophils Absolute 0.19 0.00 - 0.50 K/mcL LAB HEMETOLOGY METHOD 04/18/2024 9:51 AM [facility] Basophils Absolute 0.03 0.00 - 0.20 K/mcL LAB HEMETOLOGY METHOD 04/18/2024 9:51 AM [facility] Immature Granulocytes Absolute 0.02 0.00 - 0.03 K/mcL LAB HEMETOLOGY METHOD 04/18/2024 9:51 AM [facility] Blood Venous blood specimen / Unknown Venipuncture / Unknown 04/18/2024 8:43 AM EST 04/18/2024 8:44 AM EST us Haydee Espinosa MD LAB BLOOD ORDERABLES Fi nal Result [facility] [address] [place] [address], * (ABNORMAL) Iron and TIBC (04/18/2024 8:43 AM EST) Iron 37(L) 40 - 150 mcg/dL LAB CHEMISTRY METHOD 04/18/2024 10:22 AM EST [facility] TIBC 321 250 - 450 mcg/dL LAB CHEMISTRY METHOD 04/18/2024 10:22 AM EST [facility] Iron Saturation 12(L) 15 - 50 % LAB CHEMISTRY METHOD 04/18/2024 10:22 AM EST [facility] Blood Venous blood specimen / Unknown Venipuncture / Unknown 04/18/2024 8:43 AM EST 04/18/2024 8:44 AM EST us Haydee Espinosa MD LAB BLOOD ORDERABLES Fi nal Result Performing Organization Address City/[facility]/ZIP Co de Phone Number [facility] [address] [place] [address], [place] [phone] * Vitamin D 25 hydroxy (04/18/2024 8:43 AM EST) [facility] Vit D, 25-Hydroxy 31.6 30.0 - 80.0 ng/mL LAB CHEMISTRY METHOD 04/18/2024 10:29 AM EST [facility] Blood Venous blood specimen / Unknown Venipuncture / Unknown 04/18/2024 8:43 AM EST 04/18/2024 8:44 AM EST us Haydee Espinosa MD LAB BLOOD ORDERABLES Fi nal Result [facility] [address] [place] [address], [place] [phone] * (ABNORMAL) Thyroid stimulating hormone (04/18/2024 8:43 AM EST) [facility] TSH 4.79(H) 0.40 - 4.00 mcIU/mL LAB CHEMISTRY METHOD 04/18/2024 10:30 AM EST [facility] Blood Venous blood specimen / Unknown Venipuncture / Unknown 04/18/2024 8:43 AM EST 04/18/2024 8:44 AM EST us Haydee Espinosa MD LAB BLOOD ORDERABLES Fi nal Result Performing Organization Address City/[facility]/ZIP Co de Phone Number [facility] [address] [place] [address], * Vitamin B1 (04/18/2024 8:43 AM EST) Vitamin B1 Whole Blood 88 38 - 122 ug/L 04/22/2024 4:47 AM EST [facility] Comment: This test was developed and the performance characteristics determined by [facility]. It has not been cleared or approved by the FDA. The laboratory is regulated under CLIA as qualified to perform high-complexity testing. This test is used for patient testing purposes. It should not be regarded as investigational or for research. Test performed at [facility], [address] , [place], [place] ??[address] ? [phone] Faiza Narvaez MD, PhD - [facility] Blood Venous blood specimen / Unknown Venipuncture / Unknown 04/18/2024 8:43 AM EST 04/18/2024 8:44 AM EST Haydee Espinosa MD LAB BLOOD ORDERABLES Fi nal Result Performing Organization Address City/[facility]/ZIP Co de Phone Number [facility] [address] [place] [address] * (ABNORMAL) Magnesium (04/18/2024 8:43 AM EST) Magnesium 1.8(L) 1.9 - 2.6 mg/dL LAB CHEMISTRY METHOD 04/18/2024 10:22 AM EST [facility] Blood Venous blood specimen / Unknown Venipuncture / Unknown 04/18/2024 8:43 AM EST 04/18/2024 8:44 AM EST us Haydee Espinosa MD LAB BLOOD ORDERABLES Fi nal Result Performing Organization Address City/[facility]/ZIP Co de Phone Number [facility] [address] [place] [address], [place] [phone] * Hemoglobin A1c (04/18/2024 8:43 AM EST) Pathologist [facility] Hemoglobin A1C 6.1 <6.5 % LAB CHEMISTRY METHOD 04/18/2024 1:32 PM EST [facility] Mean Bld Glu Estim. 128 mg/dL LAB CHEMISTRY METHOD 04/18/2024 1:32 PM EST [facility] Blood Venous blood specimen / Unknown Venipuncture / Unknown 04/18/2024 8:43 AM EST 04/18/2024 8:44 AM EST us Haydee Espinosa MD LAB BLOOD ORDERABLES Fi nal Result Performing Organization Address [facility] Co de Phone Number [facility] [address] [place] [address], [place] [phone] * (ABNORMAL) Folate (04/18/2024 8:43 AM EST) Pathologist [facility] Folate >20.0(H) 2.8 - 17.0 ng/ml LAB CHEMISTRY METHOD 04/18/2024 10:44 AM EST [facility] Blood Venous blood specimen / Unknown Venipuncture / Unknown 04/18/2024 8:43 AM EST 04/18/2024 8:44 AM EST us Haydee Espinosa MD LAB BLOOD ORDERABLES Fi nal Result Performing Organization Address City/[facility]/ZIP Co de Phone Number [facility] [address] [place] [address], [place] [phone] * Ferritin (04/18/2024 8:43 AM EST) Ferritin 52 8 - 252 ng/mL LAB CHEMISTRY METHOD 04/18/2024 10:22 AM EST [facility] Blood Venous blood specimen / Unknown Venipuncture / Unknown 04/18/2024 8:43 AM EST 04/18/2024 8:44 AM EST us Haydee Espinosa MD LAB BLOOD ORDERABLES Fi nal Result [facility] [address] [place] [address], [place] [phone] * Vitamin B12 (04/18/2024 8:43 AM EST) Pathologist [facility] Vitamin B-12 316 250 - 900 pcg/mL LAB CHEMISTRY METHOD 04/18/2024 10:44 AM EST [facility] Blood Venous blood specimen / Unknown Venipuncture / Unknown 04/18/2024 8:43 AM EST 04/18/2024 8:44 AM EST us Haydee Espinosa MD LAB BLOOD ORDERABLES Fi nal Result [facility] [address] [place] [address], * Cortisol (04/18/2024 8:43 AM EST) Cortisol 11.6 mcg/dL LAB CHEMISTRY METHOD 04/18/2024 10:30 AM EST [facility] Blood Venous blood specimen / Unknown Venipuncture / Unknown 04/18/2024 8:43 AM EST 04/18/2024 8:44 AM EST Narrative [facility] - 04/18/2024 10:30 AM EST CORTISOL REFERENCE RANGE ?? 8 AM SPEC: ??5.0-23.0 mcg/dL ?? 4 PM SPEC: ??3.0-16.0 mcg/dL ?? 8 PM SPEC: ??<5.0 mcg/dL us Haydee Espinosa MD LAB BLOOD ORDERABLES Fi nal Result [facility] [address] [place] [address], [place] [phone] * (ABNORMAL) Comprehensive metabolic panel (04/18/2024 8:43 AM EST) Sodium 140 133 - 145 mmol/L LAB CHEMISTRY METHOD 04/18/2024 10:22 AM [facility] Potassium 4.6 3.5 - 5.5 mmol/L LAB CHEMISTRY METHOD 04/18/2024 10:22 AM [facility] Chloride 106 96 - 110 mmol/L LAB CHEMISTRY METHOD 04/18/2024 10:22 AM [facility] CO2 30 21 - 32 mmol/L LAB CHEMISTRY METHOD 04/18/2024 10:22 AM [facility] Anion Gap 4 3 - 11 LAB CHEMISTRY METHOD 04/18/2024 10:22 AM [facility] Glucose 90 70 - 100 mg/dL LAB CHEMISTRY METHOD 04/18/2024 10:22 AM [facility] BUN 31(H) 5 - 25 mg/dL LAB CHEMISTRY METHOD 04/18/2024 10:22 AM [facility] Creatinine 2.11(H) 0.50 - 1.10 mg/dL LAB CHEMISTRY METHOD 04/18/2024 10:22 AM [facility] eGFR 27(L) >=60 mL/min/1. 73m2 LAB CHEMISTRY METHOD 04/18/2024 10:22 AM [facility] Comment:Calculation based on the??Chronic Kidney Disease Epidemiology Collaboration (CKD-EPI) equation refit??without adjustment for race. BUN/Creatinine Ratio 14.7 LAB CHEMISTRY METHOD 04/18/2024 10:22 AM [facility] Calcium 9.2 8.5 - 10.5 mg/dL LAB CHEMISTRY METHOD 04/18/2024 10:22 AM [facility] AST (SGOT) 18 10 - 42 unit/L LAB CHEMISTRY METHOD 04/18/2024 10:22 AM [facility] ALT (SGPT) 21 10 - 60 unit/L LAB CHEMISTRY METHOD 04/18/2024 10:22 AM [facility] Alkaline Phosphatase 112 42 - 121 unit/L LAB CHEMISTRY METHOD 04/18/2024 10:22 AM [facility] Total Protein 6.5 6.0 - 8.0 g/dL LAB CHEMISTRY METHOD 04/18/2024 10:22 AM [facility] Albumin 3.4 3.2 - 5.0 g/dL LAB CHEMISTRY METHOD 04/18/2024 10:22 AM [facility] Total Bilirubin 0.2 0.0 - 1.4 mg/dL LAB CHEMISTRY METHOD 04/18/2024 10:22 AM [facility] Blood Venous blood specimen / Unknown Venipuncture / Unknown 04/18/2024 8:43 AM EST 04/18/2024 8:44 AM EST us Haydee Espinosa MD LAB BLOOD ORDERABLES Fi nal Result [facility] [address] [place] [address], from Last 3 Months Insurance [facility] Member Subscriber Plan / Payer (Ef fective 2018-Present) Name:Roxie Hobbs I Relation to Subscriber:Self Name:Roxie Hobbs I Payer ID:[id number] Group ID:[id number] Type:Not on file Address: [facility] [address] [address] Care Teams Compensation Business Partner Relationship Specialty Start Date End Date Daryn Duarte MD [address] [place] [address] [facility] [place] ABIGAIL Charles PCP - General Internal Medicine 05/21/17
--- OUTSIDE RECORDS SUMMARY | 2024-05-12 11:31 | XMS_ITS | Encounter Summary ---
Author Organization [facility] Address [address] [place] [address] Care Team Providers Care Research Physicist Name Role Phone Daryn Duarte MD Primary Care Provider [phone] Reason for Visit * Reason Onset Date Comments Med Refill 05/10/2024 zepbound Encounter Details Date Type Department Care Team (Late st Contact Info) Description 05/10/2024 Telephone Bariatric Surgery - [place] [address] [phone] Tavon Galdamez MD [address] [phone] Med Refill (zepbound) Social History Tobacco Use [...] 1:30 PM EST Nutrition Bariatric Surgery - [place] [address] [phone] Yun Hernandez, SHIRA [address] [address] 08/23/2024 10:00 AM EDT Office Visit Bariatric Surgery - [place] [address] [phone] Tavon Galdamez MD [address] [phone] documented as of this encounter Visit Diagnoses Not on filedocumented in this encounter Care Teams Research Physicist Relationship Specialty Start Date End Date Daryn Duarte MD [address] [place] [address] [address] [place], [place] PCP - General Internal Medicine 05/21/17 documented as of this encounter
[2024-05-12 17:42] LABS: Appearance Urine Clear; Color Urine Yellow; Glucose Urine UA Negative (Negative); Leukocyte Esterase Urine Negative (Negative); Nitrite Urine Negative (Negative); PH 6.5 (5.0-9.0); Specific Gravity - Urine 1.015 (1.005-1.025); UMIC TRIGGER UA YES; Urine Blood Trace (Negative); Urine Ketones Negative (Negative); Urine Protein 300 (3+) mg/dL (Neg-Trace)
[2024-05-12 17:48] LABS: Bacteria Urine None Seen (None Seen); Hyaline Casts Urine 0-2 /LPF (0-2); Squamous Epithelial Cell Urine 0-2 /HPF (0-2); WBC Urine 0-5 /HPF (0-5)
[2024-05-12 17:56] LABS: Alanine Aminotransferase 12 U/L (0-31); Albumin Level 4.1 g/dL (3.5-5.0); Alkaline Phosphatase 79 U/L (39-117); Anion Gap 14 (12-20); Aspartate Amino Transferase 18 U/L (5-31); Bilirubin Total 0.4 mg/dL (0.0-1.0); Blood Urea Nitrogen 37 mg/dL (9-16); Calcium 9.9 mg/dL (8.4-10.2); Carbon Dioxide 27 mmol/L (22-29); Chloride 107 mmol/L (96-108); Estimated Glomerular Filt Rate 25; Glucose Random 82 mg/dL (60-115); Potassium 4.9 mmol/L (3.3-5.1); Sodium 143 mmol/L (135-145); Total Protein 7.2 g/dL (6.5-8.0)
[2024-05-12 18:01] LABS: Creatinine Urine 63.46 mg/dL; Total Protein Urine Random 159 mg/dL (<12)
== END 2024-05-12 10:51 | disposition home or self-care (01) ==
LOC: HO.HKASLDS 10:50
PROVIDERS: Visit Provider Internal Medicine Hypertension Specialist
DX: N18.32 Chronic kidney disease, stage 3b (principal); R80.9 Proteinuria, unspecified
CPT/HCPCS: 36415; 80053; 81001; 82570; 84156

== ENCOUNTER 2024-05-18 10:30 | Outpatient (AMB) | payer OTHER, SELFPAY ==
[2024-05-18 11:00] VITALS: BP 148/90; PULSE 51; O2SAT 97; BMI 38.5
--- NOTE | 2024-05-18 11:00 | HO.NEPHOV ---
Vital Signs 05/18/24 11:00 05/18/24 11:12 Height 5 ft 1 in Weight 204 lb BMI 38.5 BP 148/90 H 130/70 Blood Pressure Location Lt brachial Lt brachial Position Sitting Sitting Pulse 51 Pulse Source Pulse Oximeter Pulse Oximetry (%) 97 Oxygen Delivery Method Room Air Intake Visit Reasons: 3 mon follow up/ Conf Proposal Coordinator Required: No Accompanied by: Self / Same As Patient Allergies diphenhydramine [From Benadryl] Allergy (Severe, Verified 05/18/24 11:02) Angioedema hydromorphone [From Dilaudid] Allergy (Intermediate, Verified 05/18/24 11:02) Increased BP FRANK Inhibitors [FRANK INHIBITORS] Allergy (Unknown, Verified 05/18/24 11:02) PER H&P codeine Allergy (Unknown, Verified 05/18/24 11:02) Rash meperidine Allergy (Unknown, Verified 05/18/24 11:02) Rash morphine Allergy (Unknown, Verified 05/18/24 11:02) RASH, DIFF BREATHING,CHEST PRESSURE, throat swelling TAPE,PLASTIC Allergy (Unknown, Uncoded 05/10/24 16:24) Rash Medication List - Last Reconciled 05/18/24 by Mati Durbin MD [ADULT PULL UPS (medium) As directed - #60 / month (2 pull ups/day) with 12 refills] albuterol sulfate 90 mcg/actuation 2 puffs PO Q4H PRN amitriptyline 10 mg PO BEDTIME amlodipine 10 mg PO DAILY amoxicillin-pot clavulanate 875-125 mg 1 tab PO BID 10 days [BEDSIDE COMMODE As directed] [bladder pads As directed - #90/month (3 pads / day), with 12 refills] budesonide-formoterol 160-4.5 mcg/actuation 2 inhalations inhalation BID cholecalciferol (vitamin D3) 25 mcg PO DAILY [CPAP device As directed] dapagliflozin propanediol (Farxiga) 10 mg PO DAILY 90 days diclofenac sodium 1% (Arthritis Pain (diclofenac)) 2 grams topical QID PRN ferrous sulfate 325 mg PO TID [foot pedal As directed] furosemide 20 mg PO DAILY [incontinence wipes As directed] lansoprazole 30 mg PO DAILY linaclotide (Linzess) 145 mcg PO QAM losartan 100 mg PO DAILY magnesium oxide 400 mg PO DAILY nystatin 1 appl topical BID PRN rizatriptan 10 mg PO Q2-4H PRN sennosides (Savanna-dean) 17.2 mg (2 x 8.6 mg) PO BEDTIME simethicone (Gas Relief Extra Strength) 125 mg PO QID PRN tirzepatide (weight loss) (Zepbound) 2.5 mg subcut QWEEK tizanidine 2 mg PO BID PRN topiramate 100 mg PO BID trospium ER 60 mg PO DAILY vibegron (Gemtesa) mg PO ONCE HPI Comments Details: Middle-aged woman with history of obesity and hypertension with proteinuria and CKD. She has biopsy-proven FSGS. Biopsy was done more than 15 years ago. Serum creatinine fluctuates between 1.5 minutes 1.8 mg/dL. Recently she was started on Farxiga by another home health cna. She continues to experience knee pain. She also has history of constipation for which she is on Linzess. Today she has no shortness of breath. No nausea vomiting. No edema. No urinary symptoms. Recently she underwent ultrasound of the neck which showed multiple lymph nodes. Still with joint pains Cr is up to 1.8 and 2.1 gm proteinuria She underwent a repeat kidney biopsy. Official results are still pending. I spoke to the pathologist and she did have FSGS and electron microscopy is still pending. 02/10/24 Overall doing OK NO change in weight Uses CPAP [facility] Medical History (Updated 05/16/24 @ 01:45 by Daryn Duarte MD) Family history of colonic polyps Left-sided low back pain with sciatica Benign essential hypertension Mid back pain on right side Edema Left hip pain Back pain Abdominal cramping Right lateral abdominal pain Right flank pain Pre-op examination Annual physical exam LEANNA treated with BiPAP RLQ abdominal tenderness Right flank pain Left elbow pain Left shoulder pain Urinary incontinence Breast calcification, right Chronic renal insufficiency Asthma Migraine Normal colonoscopy (~12/25/16) Obstructive sleep apnea Diverticulitis Vitamin D deficiency Hypertension Surgical History History of biopsy History of facial surgery History of carpal tunnel repair History of nasal surgery History of ankle surgery (~2012) History of cryosurgery History of pubovaginal sling Hx of hernia repair History of bilateral tubal ligation Hx laparoscopic cholecystectomy (~2001) History of esophagogastroduodenoscopy Hx of colonoscopy Family History Mother High blood pressure Diabetes Arthritis Father Diabetes Kidney disease Heart disease Brother Diabetes Maternal Aunt Cancer of breast Brother Colon cancer, Onset Age: 57 Maternal Grandmother Cancer of breast Social History Household Members: None Housing: Apartment Alcohol intake: current Alcohol intake frequency: a few times a month Alcohol type: wine and hard liquor Patient Tobacco Use Status: Former Tobacco user Tobacco use type: Cigarette Years Smoked: 7 e-Cigarette/Vaping Use: Never Used Second Hand Smoke Exposure: No service: No Current occupational status: disabled Cognitive needs: No Hearing needs: No Vision needs: Yes Female Reproductive History Menstrual Age of Menarche: 13 Physical Exam Vital Signs: Last Vital Signs Pulse 51 05/18/24 11:00 BP 148/90 H 05/18/24 11:00 Pulse Ox 97 05/18/24 11:00 Oxygen Delivery Method Room Air 05/18/24 11:00 BMI result Body Mass Index 38.5 Const General: comfortable Nutritional Appearance: well nourished Orientation/consciousness: patient oriented x3 HEENT Head: No normal to inspection Mouth: moist mucous membranes Neck Neck: Yes supple and Yes no JVD Resp Auscultation: clear to auscultation bilaterally, no rales and rub present Cardio Jugular venous distension: no JVD Palpation: no palpable S3 and no palpable S4 Heart sounds: no rubs GI Palpation (GI): Soft to palpation and nontender Percussion: No Fluid wave present General: Yes no CVA tenderness Back/Spine/Pelvis Back: no CVA tenderness Skin General skin exam: no rashes or lesions noted Neuro General: patient oriented x3 Extrem General: Yes no pedal edema and No clubbing Results Reviewed Nephrology Results: Hgb 13.8 g/dl (12.0-16.0) 11/27/23 WBC 7.4 X10*3/uL (4.8-10.8) 11/27/23 Plt Count 211 X10*3/uL (160-400) 11/27/23 Sodium 143 mmol/L (135-145) 05/12/24 Potassium 4.9 mmol/L (3.3-5.1) 05/12/24 Chloride 107 mmol/L (96-108) 05/12/24 Carbon Dioxide 27 mmol/L (22-29) 05/12/24 BUN 37 mg/dL (9-16) H 05/12/24 Creatinine 2.04 mg/dL (0.5-1.4) H 05/12/24 Calcium 9.9 mg/dL (8.4-10.2) 05/12/24 Urine Protein 300 (3+) mg/dL (Neg-Trace) H 05/12/24 Urine Creatinine 63.46 mg/dL 05/12/24 Assessment & Plan Assessment & Plan (1) Proteinuria: Code(s): R80.9 - Proteinuria, unspecified Category: Medical (2) CKD (chronic kidney disease) stage 3, GFR 30-59 ml/min: Comment: 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, with minimal proteinuria Code(s): N18.30 - Chronic kidney disease, stage 3 unspecified Category: Medical Qualifiers: Chronic kidney disease stage 3 subtype: stage 3b (GFR 30-44) Qualified Code(s): N18.32 - Chronic kidney disease, stage 3b Plan: 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 Creatinine fluctuates has gradually increased 1.8 - Remains unchanged Goal slow the portion disease. Maintain losartan for renal protection She is non nephrotic range proteinuria. Continue to avoid nephrotoxic agents including NSAIDs Repeat kidney biopsy revealed FSGS. 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 She needs weight loss. We will maximize angiotensin receptor blockade. -Keep losartan 100 mg. Continue with Farxiga. Discussed importance of weight loss. She should stay on a low-sodium diet (3) Hypertension: Code(s): I10 - Essential (primary) hypertension Category: Medical Plan: Blood pressure is better controlled Continue with losartan (4) Obesity (BMI 30-39.9): Code(s): E66.9 - Obesity, unspecified Category: Medical Plan: We had a lengthy discussion about weight loss The meantime encouraged her to increase physical activity and decreasing calorie intake Plan Other problems include cervical lymph nodes which require further workup Orders: Orders Basic Metabolic Panel 4 Months N18.32 - Chronic kidney disease, stage 3b Coding Level of Care Code Est Pt Level 4 (33198) Diagnoses Proteinuria R80.9 Stage 3b chronic kidney disease N18.32 Chronic kidney disease stage 3 subtype: stage 3b (GFR 30-44) Hypertension I10 Obesity (BMI 30-39.9) E66.9
--- OUTSIDE RECORDS SUMMARY | 2024-05-18 11:09 | XMS_ITS | Encounter Summary ---
Author Organization [employer] [facility] Address [address] [place] [address] Care Team Providers Care Manager Storage Name Role Phone Daryn Duarte MD Primary Care Provider [phone] Reason for Visit * Reason Comments Obesity Encounter Details Date Type Department Care Team (Late st Contact Info) Description 05/02/2024 10:30 AM EST Nutrition Bariatric Surgery - [place] [address] [phone] Yun Hernandez, RD [address] [address] Class 2 obesity with body mass index [...] in the computer. You can go to [facility] at [address] [place] [address], [address], when you are ready. They open at 7:30am. You can also go to another [facility] lab that may be more conveniently located. No food/drink after midnight please - these are fasting labs. NO GUM, CANDY, MINTS, TUMS, OR WATER FOR ONE HOUR BEFORE! You have a pendinghpylori lab. If you would like, you can join our Facebook group [facility]. (It has a picture of a yellow shirt with a tape measure). Support group (Facebook): Please watch the videos I posted on the FB page (use the magnifying glassto search for [facility] to locate my posts and [...] from 5:30-6:30pm in the second-floor cafeteria of [address] [place] [address]. No need tosign up, feel free to just show up. Psych eval: You have two options for your psychological evaluation Dr. Carin Gillespie [phone] [place] [place], [facility] [phone]. Both are doing remote visits. Call either one and let them know you are in the [facility] Bariatric Program and need a psych eval [...] your primary care office is *not* within [facility], please ask them to fax their office note to [phone]. Patient-created Goals: Surgeon sent prescription for iron Fluid goal: 64 ounces daily, slowly sip- limit juice or switch to diet juice Please check with your production ski repairer regarding protein guidance (our guidance is typically 60-80g daily) Aim to include protein every time you eat to help with appetite https://www.[employer].org/get-help/kwajdu-pixi-gfna/ Use protein handout to learn protein content of different foods May purchase a food scale * Yun Hernandez RD - 05/02/2024 10:30 AM EST NUTRITION FOLLOW-UP NOTE: Patient Name: Roxie Hobbs Date of : 1965 Date of Service: 05/02/2024 SURGEON: Dr. Haydee Espinosa, Dr. Galdamez for medication DESIRED SURGERY: Sleeve gastrectomy Would need nephrology clearance CKD III- told from production ski repairer to increase water and minimize salt (encouraged pt to talk to production ski repairer to discuss protein guidance apt 05/18/23) Started [...] to diet juice Please check with your production ski repairer regarding protein guidance (our guidance is typically 60-80g daily) Aim to include protein every time you eat to help with appetite https://www.[employer].org/get-help/ynwlaa-dtyy-splk/ Use protein handout to learn protein content [...] (>50% of the time spent) in direct [id number]-zicq consultation for counseling, reviewing medical record and/or coordinating the plan as described above. Yun Hernandez RD NUTRITION SERVICES Cosigned by Tavon Galdamez MD at 05/02/2024 4:05 PM EST documented in this encounter Plan of Treatment Upcoming Encounters Date Type Department Care Team (Late st Contact Info) Description 05/30/2024 1:30 PM EST Nutrition Bariatric Surgery - [place] [address] [phone] [address] 08/23/2024 10:00 AM EDT Office Visit Bariatric Surgery [facility] [address] [phone] Tavon Galdamez MD [address] [address] Scheduled Orders Name Type Priority Associated Diagnoses [...] Primary documented in this encounter Care Teams Manager Storage Relationship Specialty Start Date End Date Daryn Duarte MD [address] [place] [address] Dr [address] ABIGAIL Charles PCP - General Internal Medicine 05/21/17 documented as of this encounter
--- OUTSIDE RECORDS SUMMARY | 2024-05-18 11:09 | XMS_ITS | Clinical Summary ---
Author Organization [facility] Address [address] [place] [address] Phone Care Team Providers Care Plate Inspector Name Role Phone Daryn Duarte MD Primary Care Provider [phone] Allergies Active Allergy Reactions Criticality Noted Date [...] 2 Active Cholecalciferol (Vitamin D3) 250 MCG (16664 UT) tablet Take by mouth Activ e [...] (#1) 2023 Insurance ([id number]) ([id number]) Care Teams Plate Inspector Relationship Specialty Start Date End Date Daryn Duarte MD [address] [place] [id number] PCP - General 04/09/20
--- OUTSIDE RECORDS SUMMARY | 2024-05-18 11:09 | XMS_ITS | Encounter Summary ---
Author Organization [employer] Address [address] [place] [address] Care Team Providers Care Wood Router Hand Name Role Phone Daryn Duarte MD Primary Care Provider [phone] Reason for Visit * Reason Onset Date Comments Med Refill 05/10/2024 zepbound Encounter Details Date Type Department Care Team (Late st Contact Info) Description 05/10/2024 Telephone Bariatric Surgery - [place] [address] [phone] Taovn Galdamez MD [address] [address] Med Refill (zepbound) Social History Tobacco Use [...] 1:30 PM EST Nutrition Bariatric Surgery - [place] [address] [phone] Yun Hernandez, SHIRA [address] [address] 08/23/2024 10:00 AM EDT Office Visit Bariatric Surgery - [place] [address] [phone] Tavon Galdamez MD [address] [address] documented as of this encounter Visit Diagnoses Not on filedocumented in this encounter Care Teams Wood Router Hand Relationship Specialty Start Date End Date Daryn Duarte MD [address] [place] [address] [address] [place], [place] PCP - General Internal Medicine 05/21/17 documented as of this encounter
--- OUTSIDE RECORDS SUMMARY | 2024-05-18 11:09 | XMS_ITS | Encounter Summary ---
Author Organization [facility] Address [address] [place] [address] Care Team Providers Care Skill Training Program Coordinator Name Role Phone Daryn Duarte MD Primary Care Provider [phone] Reason for Visit * Reason Comments Consult New patient Encounter Details Date Type Department Care Team (Late st Contact Info) Description 04/21/2024 9:00 AM EST Office Visit Bariatric Surgery - [place] [address] [phone] Tavon Galdamez MD 175 [facility] [address] [place] [address] Class 2 severe obesity due to excess [...] (BMI) of 38.0 to 38.9 in adult (CMS/[facility]) Inject 0.5 mL (2.5 mg [...] have a hiatal hernia (sees gastroenterology at [facility]) Any limitations/disabilities precluding exercise: arthritis Current exercise [...] index (BMI)of 38.0 to 38.9 in adult (CMS/[facility]) PLAN: 1. The patient is a good [...] 1:30 PM EST Nutrition Bariatric Surgery - [place] [address] [phone] [address] 08/23/2024 10:00 AM EDT Office Visit Bariatric Surgery - [place] [address] [phone] Tavon Galdamez MD [address] [address] documented as of this encounter Visit Diagnoses Diagnosis Class 2 severe obesity due to excess calories with serious comorbidity and body mass index (BMI) of 38.0 to 38.9 in adult ([facility])- Primary documented in this encounter Historical Medications [...] 11/03/2023 added in this encounter Care Teams Skill Training Program Coordinator Relationship Specialty Start Date End Date Daryn Duarte MD [address] [place] [address] [address] [place] PCP - General Internal Medicine 05/21/17 documented as of this encounter
--- OUTSIDE RECORDS SUMMARY | 2024-05-18 11:09 | XMS_ITS | Clinical Summary ---
Author Organization 175 [facility] Address 175 [place] [address] Phone Care Team Providers Care Account Receivable Clerk Name Role Phone Daryn Duarte MD Primary Care Provider [phone] Allergies Active Allergy Reactions Criticality Noted Date [...] (BMI) of 38.0 to 38.9 in adult ([facility]) Inject 0.5 mL (2.5 mg total) [...] Care Team Description 05/10/2024 Telephone Bariatric Surgery [address] [phone] Tavon Galdamez MD Med Refill (zepbound) 05/02/2024 10:30 AM EST Nutrition Bariatric Surgery [address] [phone] Class 2 obesity with body mass index (BMI) of 38.0 to 38.9 in adult, unspecified obesity type, unspecified whether serious comorbidity present (Primary Dx) 04/21/2024 9:00 AM EST Office Visit Bariatric Surgery [address] [phone] Tavon Galdamez MD Class 2 severe obesity due to excess calories with serious comorbidity and body mass index (BMI) of 38.0 to 38.9 in adult ([facility]) (Primary Dx) 04/21/2024 Telephone Bariatric Surgery - [address] [phone] Tavon Galdamez MD Prior auth (Prior auth) 04/18/2024 8:45 AM EST Lab Draw Station - [address] [place] [address] [address] [place] [phone] Class 2 obesity with body mass index (BMI) of 39.0 to 39.9 in adult, unspecified obesity type, unspecified whether serious comorbidity present 03/31/2024 1:30 PM EST Nutrition Bariatric Surgery - [address] [phone] Class 2 obesity with [...] 05/30/2024 1:30 PM EST Nutrition Bariatric Surgery [address] [phone] [address] 08/23/2024 10:00 AM EDT Office Visit Bariatric Surgery [address] [phone] Tavon Galdamez MD [address] [place] [phone] Health Maintenance Due Date Last Done Comments [...] to direct LDL (04/18/2024 8:43 AM EST) [facility] Cholesterol 181 0 - 200 mg/dL LAB CHEMISTRY METHOD 04/18/2024 10:22 AM EST [facility] Triglycerides 90 0 - 150 mg/dL LAB CHEMISTRY METHOD 04/18/2024 10:22 AM EST [facility] HDL 58 >=40 mg/dL LAB CHEMISTRY METHOD 04/18/2024 10:22 AM EST [facility] LDL Calculated 105(H) 0 - 100 mg/dL LAB CHEMISTRY METHOD 04/18/2024 10:22 AM [facility] VLDL Cholesterol Gerhard 18 mg/dL LAB CHEMISTRY METHOD 04/18/2024 10:22 AM EST [facility] Non HDL Chol. (LDL+VLDL) 123 <145 mg/dL LAB CHEMISTRY METHOD 04/18/2024 10:22 AM [facility] Chol/HDL Ratio 3.1 0.0 - 4.4 LAB CHEMISTRY METHOD 04/18/2024 10:22 AM [facility] Blood Venous blood specimen / Unknown Venipuncture / Unknown 04/18/2024 8:43 AM EST 04/18/2024 8:44 AM EST Haydee Espinosa MD LAB BLOOD ORDERABLES Fi nal Result [facility] [address] [place] [address], * Nicotine and cotinine (04/18/2024 8:43 AM EST) Pathologist [facility] Nicotine <2.0 <2.0 ng/mL 04/23/2024 9:59 AM EST [facility] Cotinine <2.0 <2.0 ng/mL 04/23/2024 9:59 AM EST [facility] Comment: ?Additional Reference Ranges: ? Active Tobacco ? Passive ? Abstinence ?User ?Exposure ?? 2 Weeks and more ? Nicotine ?30 - 50 ??ng/mL ?<2 ng/mL ?<2 ng/mL Cotinine ?? 200 - 800 ng/mL ?<8 ng/mL ?<2 ng/mL Reference Ranges from: ??Clin. Chem.; ??[phone] (2002) Direct any interpretive questions to the toxicology laboratory. This is for medical use only, it is not intended for forensic use. If applicable, any drug confirmation testing reported here was developed and the performance characteristics determined by [facility]. This confirmation testing has not been cleared or approved by the FDA. The laboratory is regulated under CLIA as qualified to perform high-complexity testing. This test is used for patient testing purposes. It should not be regarded as investigational or for research. Test performed at [facility], [address] [place], [place] ??[address] ? [phone] Faiza Narvaez MD, PhD - Spool Maker Blood Venous blood specimen / Unknown Venipuncture / Unknown 04/18/2024 8:43 AM EST 04/18/2024 8:44 AM EST us Haydee Espinosa MD LAB BLOOD ORDERABLES Fi nal Result [facility] [address] [place] [address] * (ABNORMAL) CBC auto differential (04/18/2024 8:43 AM EST) WBC 5.9 4.8 - 10.8 K/[facility] LAB HEMETOLOGY METHOD 04/18/2024 9:51 AM EST [facility] RBC 4.70 3.80 - 4.80 M/mcL LAB HEMETOLOGY METHOD 04/18/2024 9:51 AM [facility] Hemoglobin 13.7 11.5 - 16.0 g/dL LAB HEMETOLOGY METHOD 04/18/2024 9:51 AM [facility] Hematocrit 44.0 35.0 - 47.0 % LAB HEMETOLOGY METHOD 04/18/2024 9:51 AM [facility] MCV 93.2 79.0 - 98.0 FL LAB HEMETOLOGY METHOD 04/18/2024 9:51 AM [facility] MCH 29.0 27.0 - 32.0 pcg LAB HEMETOLOGY METHOD 04/18/2024 9:51 AM [facility] MCHC 31.1(L) 32.0 - 37.0 g/dL LAB HEMETOLOGY METHOD 04/18/2024 9:51 AM [facility] RDW 13.7 11.0 - 15.0 % LAB HEMETOLOGY METHOD 04/18/2024 9:51 AM [facility] Platelets 190 130 - 400 K/mcL LAB HEMETOLOGY METHOD 04/18/2024 9:51 AM [facility] MPV 11.0 7.0 - 11.0 FL LAB HEMETOLOGY METHOD 04/18/2024 9:51 AM [facility] NRBC 0.0 <1.0 % LAB HEMETOLOGY METHOD 04/18/2024 9:51 AM [facility] NRBC Absolute 0.00 <0.10 K/[facility] LAB HEMETOLOGY METHOD 04/18/2024 9:51 AM [facility] Neutrophils Relative 59.9 % LAB HEMETOLOGY METHOD 04/18/2024 9:51 AM [facility] Lymphocytes Relative 28.2 % LAB HEMETOLOGY METHOD 04/18/2024 9:51 AM [facility] Monocytes Relative 7.9 % LAB HEMETOLOGY METHOD 04/18/2024 9:51 AM EST [facility] Eosinophils Relative 3.2 % LAB HEMETOLOGY METHOD 04/18/2024 9:51 AM [facility] Basophils Relative 0.5 % LAB HEMETOLOGY METHOD 04/18/2024 9:51 AM [facility] Immature Granulocytes Relative 0.3 % LAB HEMETOLOGY METHOD 04/18/2024 9:51 AM [facility] Neutrophils Absolute 3.55 1.50 - 7.00 K/mcL LAB HEMETOLOGY METHOD 04/18/2024 9:51 AM [facility] Lymphocytes Absolute 1.67 1.00 - 5.00 K/mcL LAB HEMETOLOGY METHOD 04/18/2024 9:51 AM [facility] Monocytes Absolute 0.47 0.20 - 1.00 K/mcL LAB HEMETOLOGY METHOD 04/18/2024 9:51 AM EST [facility] Eosinophils Absolute 0.19 0.00 - 0.50 K/mcL LAB HEMETOLOGY METHOD 04/18/2024 9:51 AM [facility] Basophils Absolute 0.03 0.00 - 0.20 K/mcL LAB HEMETOLOGY METHOD 04/18/2024 9:51 AM [facility] Immature Granulocytes Absolute 0.02 0.00 - 0.03 K/mcL LAB HEMETOLOGY METHOD 04/18/2024 9:51 AM [facility] Blood Venous blood specimen / Unknown Venipuncture / Unknown 04/18/2024 8:43 AM EST 04/18/2024 8:44 AM EST us Haydee Espinosa MD LAB BLOOD ORDERABLES Fi nal Result [facility] [address] [place] [address], * (ABNORMAL) Iron and TIBC (04/18/2024 8:43 AM EST) Iron 37(L) 40 - 150 mcg/dL LAB CHEMISTRY METHOD 04/18/2024 10:22 AM EST [facility] TIBC 321 250 - 450 mcg/dL LAB CHEMISTRY METHOD 04/18/2024 10:22 AM EST [facility] Iron Saturation 12(L) 15 - 50 % LAB CHEMISTRY METHOD 04/18/2024 10:22 AM EST [facility] Blood Venous blood specimen / Unknown Venipuncture / Unknown 04/18/2024 8:43 AM EST 04/18/2024 8:44 AM EST us Haydee Espinosa MD LAB BLOOD ORDERABLES Fi nal Result Performing Organization Address City/[facility]/ZIP Co de Phone Number [facility] [address] [place] [address], [place] [phone] * Vitamin D 25 hydroxy (04/18/2024 8:43 AM EST) [facility] Vit D, 25-Hydroxy 31.6 30.0 - 80.0 ng/mL LAB CHEMISTRY METHOD 04/18/2024 10:29 AM EST [facility] Blood Venous blood specimen / Unknown Venipuncture / Unknown 04/18/2024 8:43 AM EST 04/18/2024 8:44 AM EST us Haydee Espinosa MD LAB BLOOD ORDERABLES Fi nal Result [facility] [address] [place] [address], [place] [phone] * (ABNORMAL) Thyroid stimulating hormone (04/18/2024 8:43 AM EST) [facility] TSH 4.79(H) 0.40 - 4.00 mcIU/mL LAB CHEMISTRY METHOD 04/18/2024 10:30 AM EST [facility] Blood Venous blood specimen / Unknown Venipuncture / Unknown 04/18/2024 8:43 AM EST 04/18/2024 8:44 AM EST us Haydee Espinosa MD LAB BLOOD ORDERABLES Fi nal Result Performing Organization Address City/[facility]/ZIP Co de Phone Number [facility] [address] [place] [address], * Vitamin B1 (04/18/2024 8:43 AM EST) Vitamin B1 Whole Blood 88 38 - 122 ug/L 04/22/2024 4:47 AM EST [facility] Comment: This test was developed and the performance characteristics determined by [facility]. It has not been cleared or approved by the FDA. The laboratory is regulated under CLIA as qualified to perform high-complexity testing. This test is used for patient testing purposes. It should not be regarded as investigational or for research. Test performed at [facility], [address] , [place], [place] ??[address] ? [phone] Faiza Narvaez MD, PhD - Spool Maker Blood Venous blood specimen / Unknown Venipuncture / Unknown 04/18/2024 8:43 AM EST 04/18/2024 8:44 AM EST Haydee Espinosa MD LAB BLOOD ORDERABLES Fi nal Result Performing Organization Address City/[facility]/ZIP Co de Phone Number [facility] [address] [place] [address] * (ABNORMAL) Magnesium (04/18/2024 8:43 AM EST) Magnesium 1.8(L) 1.9 - 2.6 mg/dL LAB CHEMISTRY METHOD 04/18/2024 10:22 AM EST [facility] Blood Venous blood specimen / Unknown Venipuncture / Unknown 04/18/2024 8:43 AM EST 04/18/2024 8:44 AM EST us Haydee Espinosa MD LAB BLOOD ORDERABLES Fi nal Result Performing Organization Address City/[facility]/ZIP Co de Phone Number [facility] [address] [place] [address], [place] [phone] * Hemoglobin A1c (04/18/2024 8:43 AM EST) Pathologist [facility] Hemoglobin A1C 6.1 <6.5 % LAB CHEMISTRY METHOD 04/18/2024 1:32 PM EST [facility] Mean Bld Glu Estim. 128 mg/dL LAB CHEMISTRY METHOD 04/18/2024 1:32 PM EST [facility] Blood Venous blood specimen / Unknown Venipuncture / Unknown 04/18/2024 8:43 AM EST 04/18/2024 8:44 AM EST us Haydee Espinosa MD LAB BLOOD ORDERABLES Fi nal Result Performing Organization Address [facility] Co de Phone Number [facility] [address] [place] [address], [place] [phone] * (ABNORMAL) Folate (04/18/2024 8:43 AM EST) Pathologist [facility] Folate >20.0(H) 2.8 - 17.0 ng/ml LAB CHEMISTRY METHOD 04/18/2024 10:44 AM EST [facility] Blood Venous blood specimen / Unknown Venipuncture / Unknown 04/18/2024 8:43 AM EST 04/18/2024 8:44 AM EST us Haydee Espinosa MD LAB BLOOD ORDERABLES Fi nal Result Performing Organization Address City/[facility]/ZIP Co de Phone Number [facility] [address] [place] [address], [place] [phone] * Ferritin (04/18/2024 8:43 AM EST) Ferritin 52 8 - 252 ng/mL LAB CHEMISTRY METHOD 04/18/2024 10:22 AM EST [facility] Blood Venous blood specimen / Unknown Venipuncture / Unknown 04/18/2024 8:43 AM EST 04/18/2024 8:44 AM EST us Haydee Espinosa MD LAB BLOOD ORDERABLES Fi nal Result [facility] [address] [place] [address], [place] [phone] * Vitamin B12 (04/18/2024 8:43 AM EST) Pathologist [facility] Vitamin B-12 316 250 - 900 pcg/mL LAB CHEMISTRY METHOD 04/18/2024 10:44 AM EST [facility] Blood Venous blood specimen / Unknown Venipuncture / Unknown 04/18/2024 8:43 AM EST 04/18/2024 8:44 AM EST us Haydee Espinosa MD LAB BLOOD ORDERABLES Fi nal Result [facility] [address] [place] [address], * Cortisol (04/18/2024 8:43 AM EST) Cortisol 11.6 mcg/dL LAB CHEMISTRY METHOD 04/18/2024 10:30 AM EST [facility] Blood Venous blood specimen / Unknown Venipuncture / Unknown 04/18/2024 8:43 AM EST 04/18/2024 8:44 AM EST Narrative [facility] - 04/18/2024 10:30 AM EST CORTISOL REFERENCE RANGE ?? 8 AM SPEC: ??5.0-23.0 mcg/dL ?? 4 PM SPEC: ??3.0-16.0 mcg/dL ?? 8 PM SPEC: ??<5.0 mcg/dL us Haydee Espinosa MD LAB BLOOD ORDERABLES Fi nal Result [facility] [address] [place] [address], [place] [phone] * (ABNORMAL) Comprehensive metabolic panel (04/18/2024 8:43 AM EST) Sodium 140 133 - 145 mmol/L LAB CHEMISTRY METHOD 04/18/2024 10:22 AM [facility] Potassium 4.6 3.5 - 5.5 mmol/L LAB CHEMISTRY METHOD 04/18/2024 10:22 AM [facility] Chloride 106 96 - 110 mmol/L LAB CHEMISTRY METHOD 04/18/2024 10:22 AM [facility] CO2 30 21 - 32 mmol/L LAB CHEMISTRY METHOD 04/18/2024 10:22 AM [facility] Anion Gap 4 3 - 11 LAB CHEMISTRY METHOD 04/18/2024 10:22 AM [facility] Glucose 90 70 - 100 mg/dL LAB CHEMISTRY METHOD 04/18/2024 10:22 AM [facility] BUN 31(H) 5 - 25 mg/dL LAB CHEMISTRY METHOD 04/18/2024 10:22 AM [facility] Creatinine 2.11(H) 0.50 - 1.10 mg/dL LAB CHEMISTRY METHOD 04/18/2024 10:22 AM [facility] eGFR 27(L) >=60 mL/min/1. 73m2 LAB CHEMISTRY METHOD 04/18/2024 10:22 AM [facility] Comment:Calculation based on the??Chronic Kidney Disease Epidemiology Collaboration (CKD-EPI) equation refit??without adjustment for race. BUN/Creatinine Ratio 14.7 LAB CHEMISTRY METHOD 04/18/2024 10:22 AM [facility] Calcium 9.2 8.5 - 10.5 mg/dL LAB CHEMISTRY METHOD 04/18/2024 10:22 AM [facility] AST (SGOT) 18 10 - 42 unit/L LAB CHEMISTRY METHOD 04/18/2024 10:22 AM [facility] ALT (SGPT) 21 10 - 60 unit/L LAB CHEMISTRY METHOD 04/18/2024 10:22 AM [facility] Alkaline Phosphatase 112 42 - 121 unit/L LAB CHEMISTRY METHOD 04/18/2024 10:22 AM [facility] Total Protein 6.5 6.0 - 8.0 g/dL LAB CHEMISTRY METHOD 04/18/2024 10:22 AM [facility] Albumin 3.4 3.2 - 5.0 g/dL LAB CHEMISTRY METHOD 04/18/2024 10:22 AM [facility] Total Bilirubin 0.2 0.0 - 1.4 mg/dL LAB CHEMISTRY METHOD 04/18/2024 10:22 AM [facility] Blood Venous blood specimen / Unknown Venipuncture / Unknown 04/18/2024 8:43 AM EST 04/18/2024 8:44 AM EST us Haydee Espinosa MD LAB BLOOD ORDERABLES Fi nal Result [facility] [address] [place] [address], from Last 3 Months Insurance [facility] Member Subscriber Plan / Payer (Ef fective 2018-Present) Name:Roxie Hobbs I Relation to Subscriber:Self Name:Roxie Hobbs I Payer ID:[id number] Group ID:[id number] Type:Not on file Address: [facility] [address] [address] Care Teams Account Receivable Clerk Relationship Specialty Start Date End Date Daryn Duarte MD [address] [place] [address] Jesse [facility] ABIGAIL Charles PCP - General Internal Medicine 05/21/17
--- OUTSIDE RECORDS SUMMARY | 2024-05-18 11:09 | XMS_ITS | Encounter Summary ---
Author Organization [facility] Address [address] [place] [address] Care Team Providers Care Dial Equipment Engineer Name Role Phone Daryn Duarte MD Primary Care Provider [phone] Reason for Visit * Reason Onset Date Comments Prior auth 04/21/2024 Prior auth Encounter Details Date Type Department Care Team (Late st Contact Info) Description 04/21/2024 Telephone Bariatric Surgery - [place] 175 [facility] [address] [place] [phone] Tavon Galdamez MD 175 [facility] [address] [place] [address] Prior auth (Prior auth) Social History Tobacco [...] 1:30 PM EST Nutrition Bariatric Surgery - [place] [address] [phone] [address] 08/23/2024 10:00 AM EDT Office Visit Bariatric Surgery - [place] [address] [phone] Tavon Galdamez MD [address] [address] documented as of this encounter Visit Diagnoses Not on filedocumented in this encounter Care Teams Dial Equipment Engineer Relationship Specialty Start Date End Date Daryn Duarte MD [address] [place] [address] Dr [address] [place], [place] PCP - General Internal Medicine 05/21/17 documented as of this encounter
--- OUTSIDE RECORDS SUMMARY | 2024-05-18 11:09 | XMS_ITS | Data Portability ---
Author Organization [place] - [facility], Allergy Address [address] [place] [phone] Assessment No assessment recorded. Plan of Treatment [...] Time Disorder of right Eustachia n tube [id number] Active 2019 Other specified disorders of Eustachia n tube, right ear; Note: Date Diagnosed : 04/13/2019 3:52 PM (H69.81) Not Available [facility] 4 02:31:20 Migraine without aura, not refractor y 094479267 Active 2019 Migraine without aura, not intractab le, without status migrainos us; Note: Date Diagnosed : 04/13/2019 3:52 PM (G43.009) Not Available [facility] 4 02:31:10 Otalgia of right ear 7402866387 Active 2019 Otalgia, right ear; Note: Date Diagnosed : 04/13/2019 3:52 PM (H92.01) Not Available [facility] 4 02:31:19 Mass of neck 512739303 Active 2019 Localized swelling, mass and lump, neck; Note: Date Diagnosed : 06/09/2019 4:03 PM (R22.1) Not Available [facility] 4 02:31:13 Neck swelling 790483764 Active 2019 Localized swelling, mass and lump, neck; Note: Date Diagnosed : 06/09/2019 4:03 PM (R22.1) Not Available [facility] 4 02:31:13 Temporoma ndibular joint disorder 08548992 Active 2019 Other specified disorders of temporoma ndibular joint; Note: Date Diagnosed : 04/13/2019 3:57 PM (M26.69) Not Available [facility] 4 02:31:12 Tinnitus of right ear 29416966727 08 Active 2019 Tinnitus, right ear; Note: Date Diagnosed : 04/13/2019 3:52 PM (H93.11) Not Available [facility] 4 02:31:24 Severe obesity 89158354139 104 Active 2019 Morbid (severe) obesity due to excess calories; Note: Date Diagnosed : 04/13/2019 3:52 PM (E66.01) Not Available [facility] 4 02:31:11 Problem Notes None recorded. Procedures Surgical History None recorded. Imaging Results Imaging Date Name Status LastModified by Organiz ation Details LastModified Time 08/03/2023 MRI, head + neck + orbits, w/wo contrast [facility] available 10/20/2023 11:27:36 04/13/2019 audiogram [...] Name and Address Organization Details Recorded Time 93507 morphine medicatio n other Not available Not available 08/11/2023 7052 RxNorm React ion: unkno wn, unspe cifie d;; Not Available [facility] 4 00:59:01 Medications Name Sig Start Date Stop Date Status Note LastModified by Organization Details LastModified Time losartan 50 mg tablet Take 1 tablet (50 mg total) by mouth in the morning and 1 tablet (50 mg total) in the evening. active Not Available Not Available No t Available furosemid e 40 mg tablet 2019 active Medicati on ID: [id number] D uration Value: 30 Brand Name: furosemjesse de Send Method: E-Prescr ibed Sub s Allowed: subs OK Speci al Instruct ion: TAKE ONE TABLET BY MOUTH ONCE DAILY Me dication GenericN zoe: furosemi de Not Available Not Available Not Available ranitidin e 300 mg tablet 2019 active Medicati on ID: [id number] D uration Value: 30 Brand Name: ranitidi ne HCl Send Method: E-Prescr ibed Sub s Allowed: subs OK Speci al Instruct ion: TAKE ONE TABLET BY MOUTH ONCE A DAY Medi cationGe nericNam e: ranitidi ne HCl Not Available Not Available Not Available sumatript an 100 mg tablet 2019 active Medicati on ID: [id number] D uration Value: 30 Brand Name: sumatrip [...] mg tablet 2020 active Medicati on ID: [id number] B rand Name: famotidi ne Send Method: [...] mg tablet 2019 active Medicati on ID: [id number] D uration Value: 30 Brand Name: amlodipi [...] mg tablet 2020 active Medicati on ID: [id number] B rand Name: dicyclom ine Send Method: [...] mg capsule 2020 active Medicati on ID: [id number] B rand Name: docusate sodium S end [...] nasal spray 2020 active Medicati on ID: [id number] B rand Name: ipratrop ium bromide Send [...] Available Senexon 2019 active Medicati on ID: [id number] D uration Value: 30 Brand Name: True Send Method: E-Prescr ibed Sub s Allowed: subs ADENIKE Yip al Instruct ion: TAKE 2 TABLETS BY MOUTH ONCE A DAY AT BEDTIME NEEDED Eleonora Cosby Name: True Not Available Not Available Not Available Doc-Q-Lac e 05/28 completed Medicati on ID: [id number] D uration Value: 30 Brand Name: Doc-Q-La [...] unit) capsule 2019 active Medicati on ID: [id number] D uration Value: 30 Brand Name: D3 Send Method: E-Prescr ibed Sub s Allowed: subs ADENIKE Yip al Instruct ion: TAKE ONE CAPSULE BY MOUTH DAILY Me dication GenericN zoe: D3-2000 Not Available Not Available Not Available Cerovite Senior 0.4 mg-300 mcg-250 mcg tablet 2019 active Medicati on ID: [id number] D uration Value: 30 Brand Name: Cerovite [...] mcg capsule 2019 active Medicati on ID: [id number] D uration Value: 30 Brand Name: Elías [...] Updated DateTime 09/28/2023 154.94 cm 38.4 kg/m2 94750.25 g Pati Daly [place] - [facility] 09/28/2023 13:08:36 Social History None recorded. [...] Note [id number] JIMENA HERRERA MD [facility] of [address] [phone] 09/28/2023 13:02:32 09/28/2023 17:08:11 Mass of neck [id number] R22.1 58-year-ol d female presents today for [...] Member ID Guarantor Name 09/28/2023 1 [facility] - DOS ON OR AFTER 2022 - ONE CARE (MEDICARE REPLACEMENT/ADV ANTAGE - HMO) Roxie Hobbs [id number] Roxie Hobbs Notes Date Note Type Note [...] not recall having this. JIMENA HERRERA MD [address] [place] [address], [place], [address], [place] - [facility] 10/07/2023 08:39:38 OBGyn Episode No OBEpisode recorded.
--- OUTSIDE RECORDS SUMMARY | 2024-05-18 11:09 | XMS_ITS | Encounter Summary ---
Author Organization [facility] Address [address] [place] [address] Phone Care Team Providers Care Biomedical Specialist Name Role Phone Daryn Duarte MD Primary Care Provider [phone] Encounter Details Date Type Department Care Team (Late st Contact Info) Description 11/19/2021 Telephone [facility] [address] [place] [phone] Mati Durbin MD Social History Tobacco Use [...] your suggestion. Please advise Thank you CB# [phone] Thank you documented in this encounter Plan of Treatment Not on file documented as of this encounter Visit Diagnoses Not on filedocumented in this encounter Care Teams Biomedical Specialist Relationship Specialty Start Date End Date Daryn Duarte MD [address] [place] [address] [address] [place] [address] PCP - General 04/09/20 documented as of this encounter
--- OUTSIDE RECORDS SUMMARY | 2024-05-18 11:09 | XMS_ITS | Encounter Summary ---
Author Organization [employer] [place] [address] Care Team Providers Care Roller Die Cutting Machine Operator Name Role Phone Daryn Duarte MD Primary Care Provider [phone] Encounter Details Date Type Department Care Team (Late Contact Info) Description 04/18/2024 8:45 AM EST Lab Draw Station - [address] [facility] [address] [facility] [address] [place] [address] Class 2 obesity with body [...] 1:30 PM EST Nutrition Bariatric [place] [address] [address] Yun Hernandez, SHIRA [address] [address] 08/23/2024 10:00 AM EDT Office Visit Bariatric Surgery - [place] [address] [address] Tavon Galdamez MD [address] [address] Scheduled Orders Name Type Priority Associated Diagnoses [...] CBC auto differential (04/18/2024 8:43 AM EST) [facility] WBC 5.9 4.8 - 10.8 K/mcL LAB HEMETOLOGY METHOD 04/18/2024 9:51 AM [facility] RBC 4.70 3.80 - 4.80 M/mcL LAB HEMETOLOGY METHOD 04/18/2024 9:51 AM [facility] Hemoglobin 13.7 11.5 - 16.0 g/dL LAB HEMETOLOGY METHOD 04/18/2024 9:51 AM [facility] Hematocrit 44.0 35.0 - 47.0 % LAB HEMETOLOGY METHOD 04/18/2024 9:51 AM [facility] MCV 93.2 79.0 - 98.0 FL LAB HEMETOLOGY METHOD 04/18/2024 9:51 AM [facility] MCH 29.0 27.0 - 32.0 pcg LAB HEMETOLOGY METHOD 04/18/2024 9:51 AM [facility] MCHC 31.1(L) 32.0 - 37.0 g/dL LAB HEMETOLOGY METHOD 04/18/2024 9:51 AM [facility] RDW 13.7 11.0 - 15.0 % LAB HEMETOLOGY METHOD 04/18/2024 9:51 AM [facility] Platelets 190 130 - 400 K/mcL LAB HEMETOLOGY METHOD 04/18/2024 9:51 AM [facility] MPV 11.0 7.0 - 11.0 FL LAB HEMETOLOGY METHOD 04/18/2024 9:51 AM [facility] NRBC 0.0 <1.0 % LAB HEMETOLOGY METHOD 04/18/2024 9:51 AM [facility] NRBC Absolute 0.00 <0.10 K/mcL LAB HEMETOLOGY METHOD 04/18/2024 9:51 AM [facility] Neutrophils Relative 59.9 % LAB HEMETOLOGY METHOD 04/18/2024 9:51 AM [facility] Lymphocytes Relative 28.2 % LAB HEMETOLOGY METHOD 04/18/2024 9:51 AM [facility] Monocytes Relative 7.9 % LAB HEMETOLOGY METHOD 04/18/2024 9:51 AM [facility] Eosinophils Relative 3.2 % LAB HEMETOLOGY METHOD 04/18/2024 9:51 AM [facility] Basophils Relative 0.5 % LAB HEMETOLOGY METHOD 04/18/2024 9:51 AM [facility] Immature Granulocytes Relative 0.3 % LAB HEMETOLOGY METHOD 04/18/2024 9:51 AM [facility] Neutrophils Absolute 3.55 1.50 - 7.00 K/mcL LAB HEMETOLOGY METHOD 04/18/2024 9:51 AM [facility] Lymphocytes Absolute 1.67 1.00 - 5.00 K/mcL LAB HEMETOLOGY METHOD 04/18/2024 9:51 AM [facility] Monocytes Absolute 0.47 0.20 - 1.00 K/mcL LAB HEMETOLOGY METHOD 04/18/2024 9:51 AM [facility] Eosinophils Absolute 0.19 0.00 - 0.50 K/[facility] LAB HEMETOLOGY METHOD 04/18/2024 9:51 AM EST [facility] Basophils Absolute 0.03 0.00 - 0.20 K/[facility] LAB HEMETOLOGY METHOD 04/18/2024 9:51 AM EST [facility] Immature Granulocytes Absolute 0.02 0.00 - 0.03 K/[facility] LAB HEMETOLOGY METHOD 04/18/2024 9:51 AM EST [facility] Blood Venous blood specimen / Unknown Venipuncture / Unknown 04/18/2024 8:43 AM EST 04/18/2024 8:44 AM EST us Haydee Espinosa MD LAB BLOOD ORDERABLES Fi nal Result Performing Organization Address City/[facility]/ZIP Co de Phone Number [facility] [address] [place] [address], [place] [phone] * Vitamin D 25 hydroxy (04/18/2024 8:43 AM EST) Vit D, 25-Hydroxy 31.6 30.0 - 80.0 ng/mL LAB CHEMISTRY METHOD 04/18/2024 10:29 AM EST [facility] Blood Venous blood specimen / Unknown Venipuncture / Unknown 04/18/2024 8:43 AM EST 04/18/2024 8:44 AM EST Haydee Espinosa MD LAB BLOOD ORDERABLES Fi nal Result [facility] [address] [place] [address], [place] [phone] * Vitamin B12 (04/18/2024 8:43 AM EST) Vitamin B-12 316 250 - 900 pcg/mL LAB CHEMISTRY METHOD 04/18/2024 10:44 AM EST [facility] Blood Venous blood specimen / Unknown Venipuncture / Unknown 04/18/2024 8:43 AM EST 04/18/2024 8:44 AM EST us Haydee Espinosa MD LAB BLOOD ORDERABLES Fi nal Result Performing Organization Address [facility] de Phone Number [facility] [address] [place] [address], * Vitamin B1 (04/18/2024 8:43 AM EST) Vitamin B1 Whole Blood 88 38 - 122 ug/L 04/22/2024 4:47 AM EST [facility] Comment: This test was developed and the performance characteristics determined by [facility]. It has not been cleared or approved by the FDA. The laboratory is regulated under CLIA as qualified to perform high-complexity testing. This test is used for patient testing purposes. It should not be regarded as investigational or for research. Test performed at [facility], [address] [place], [place] ??[address] ? [phone] Faiza Narvaez MD, PhD - Assistant Professor Of Surgery Blood Venous blood specimen / Unknown Venipuncture / Unknown 04/18/2024 8:43 AM EST 04/18/2024 8:44 AM EST us Haydee Espinosa MD LAB BLOOD ORDERABLES Fi nal Result Performing Organization Address City/[facility] Co de Phone Number [facility] [address] [place] [address] * (ABNORMAL) Thyroid stimulating hormone (04/18/2024 8:43 AM EST) TSH 4.79(H) 0.40 - 4.00 mcIU/mL LAB CHEMISTRY METHOD 04/18/2024 10:30 AM EST [facility] Blood Venous blood specimen / Unknown Venipuncture / Unknown 04/18/2024 8:43 AM EST 04/18/2024 8:44 AM EST us Haydee Espinosa MD LAB BLOOD ORDERABLES Fi nal Result [facility] [address] [place] [address], * Nicotine and cotinine (04/18/2024 8:43 AM [...] ?<2 ng/mL Reference Ranges from: ??Clin. Chem.; ??[phone] (2002) Direct any interpretive questions to the toxicology laboratory. This is for medical use only, it is not intended for forensic use. If applicable, any drug confirmation testing reported here was developed and the performance characteristics determined by [facility]. This confirmation testing has not been cleared or approved by the FDA. The laboratory is regulated under CLIA as qualified to perform high-complexity testing. This test is used for patient testing purposes. It should not be regarded as investigational or for research. Test performed at [facility], [address] , [place], [place] ??[address] ? [phone] Faiza Narvaez MD, PhD - Assistant Professor Of Surgery Blood Venous blood specimen / Unknown Venipuncture / Unknown 04/18/2024 8:43 AM EST 04/18/2024 8:44 AM EST Haydee Espinosa MD LAB BLOOD ORDERABLES Fi nal Result [facility] [address] [place] [address] * (ABNORMAL) Magnesium (04/18/2024 8:43 AM EST) Magnesium 1.8(L) 1.9 - 2.6 mg/dL LAB CHEMISTRY METHOD 04/18/2024 10:22 AM EST [facility] Blood Venous blood specimen / Unknown Venipuncture / Unknown 04/18/2024 8:43 AM EST 04/18/2024 8:44 AM EST us Haydee Espinosa MD LAB BLOOD ORDERABLES Fi nal Result Performing Organization Address City/[facility]/ZIP Co de Phone Number [facility] [address] [place] [address], * (ABNORMAL) Lipid panel with reflex to direct LDL (04/18/2024 8:43 AM EST) Cholesterol 181 0 - 200 mg/dL LAB CHEMISTRY METHOD 04/18/2024 10:22 AM EST [facility] Triglycerides 90 0 - 150 mg/dL LAB CHEMISTRY METHOD 04/18/2024 10:22 AM EST [facility] HDL 58 >=40 mg/dL LAB CHEMISTRY METHOD 04/18/2024 10:22 AM EST [facility] LDL Calculated 105(H) 0 - 100 mg/dL LAB CHEMISTRY METHOD 04/18/2024 10:22 AM EST [facility] VLDL Cholesterol Gerhard 18 mg/dL LAB CHEMISTRY METHOD 04/18/2024 10:22 AM [facility] Non HDL Chol. (LDL+VLDL) 123 <145 mg/dL LAB CHEMISTRY METHOD 04/18/2024 10:22 AM [facility] Chol/HDL Ratio 3.1 0.0 - 4.4 LAB CHEMISTRY METHOD 04/18/2024 10:22 AM [facility] Blood Venous blood specimen / Unknown Venipuncture / Unknown 04/18/2024 8:43 AM EST 04/18/2024 8:44 AM EST us Haydee Espinosa MD LAB BLOOD ORDERABLES Fi nal Result Performing Organization Address City/[facility]/ZIP Co de Phone Number [facility] [address] [place] [address], [place] [phone] * (ABNORMAL) Iron and TIBC (04/18/2024 8:43 AM EST) Iron 37(L) 40 - 150 mcg/dL LAB CHEMISTRY METHOD 04/18/2024 10:22 AM [facility] TIBC 321 250 - 450 mcg/dL LAB CHEMISTRY METHOD 04/18/2024 10:22 AM EST [facility] Iron Saturation 12(L) 15 - 50 % LAB CHEMISTRY METHOD 04/18/2024 10:22 AM EST [facility] Blood Venous blood specimen / Unknown Venipuncture / Unknown 04/18/2024 8:43 AM EST 04/18/2024 8:44 AM EST us Haydee Espinosa MD LAB BLOOD ORDERABLES Fi nal Result [facility] [address] [place] [address], [place] [phone] * Hemoglobin A1c (04/18/2024 8:43 AM EST) [facility] Hemoglobin A1C 6.1 <6.5 % LAB CHEMISTRY METHOD 04/18/2024 1:32 PM EST [facility] Mean Bld Glu Estim. 128 mg/dL LAB CHEMISTRY METHOD 04/18/2024 1:32 PM EST [facility] Blood Venous blood specimen / Unknown Venipuncture / Unknown 04/18/2024 8:43 AM EST 04/18/2024 8:44 AM EST us Haydee Espinosa MD LAB BLOOD ORDERABLES Fi nal Result Performing Organization Address City/[facility]/ZIP Co de Phone Number [facility] [address] [place] [address], [place] [phone] * (ABNORMAL) Folate (04/18/2024 8:43 AM EST) [facility] Folate >20.0(H) 2.8 - 17.0 ng/ml LAB CHEMISTRY METHOD 04/18/2024 10:44 AM EST [facility] Blood Venous blood specimen / Unknown Venipuncture / Unknown 04/18/2024 8:43 AM EST 04/18/2024 8:44 AM EST Haydee Espinosa MD LAB BLOOD ORDERABLES Fi nal Result [facility] [address] [place] [address], [place] [phone] * Ferritin (04/18/2024 8:43 AM EST) [facility] Ferritin 52 8 - 252 ng/mL LAB CHEMISTRY METHOD 04/18/2024 10:22 AM EST [facility] Blood Venous blood specimen / Unknown Venipuncture / Unknown 04/18/2024 8:43 AM EST 04/18/2024 8:44 AM EST us Haydee Espinosa MD LAB BLOOD ORDERABLES Fi nal Result Performing Organization Address [facility] de Phone Number [facility] [address] [place] [address], * Cortisol (04/18/2024 8:43 AM EST) Cortisol 11.6 mcg/dL LAB CHEMISTRY METHOD 04/18/2024 10:30 AM EST [facility] Blood Venous blood specimen / Unknown Venipuncture / Unknown 04/18/2024 8:43 AM EST 04/18/2024 8:44 AM EST Narrative [facility] - 04/18/2024 10:30 AM EST CORTISOL REFERENCE RANGE ?? 8 AM SPEC: ??5.0-23.0 mcg/dL ?? 4 PM SPEC: ??3.0-16.0 mcg/dL ?? 8 PM SPEC: ??<5.0 mcg/dL us Haydee Espinosa MD LAB BLOOD ORDERABLES Fi nal Result Performing Organization Address [facility] de Phone Number [facility] [address] [place] [address], [place] [phone] * (ABNORMAL) Comprehensive metabolic panel (04/18/2024 8:43 AM EST) Sodium 140 133 - 145 mmol/L LAB CHEMISTRY METHOD 04/18/2024 10:22 AM EST [facility] Potassium 4.6 3.5 - 5.5 mmol/L LAB CHEMISTRY METHOD 04/18/2024 10:22 AM EST [facility] Chloride 106 96 - 110 mmol/L LAB CHEMISTRY METHOD 04/18/2024 10:22 AM EST [facility] CO2 30 21 - 32 mmol/L LAB CHEMISTRY METHOD 04/18/2024 10:22 AM [facility] Anion Gap 4 3 - 11 LAB CHEMISTRY METHOD 04/18/2024 10:22 AM [facility] Glucose 90 70 - 100 mg/dL LAB CHEMISTRY METHOD 04/18/2024 10:22 AM [facility] BUN 31(H) 5 - 25 mg/dL LAB CHEMISTRY METHOD 04/18/2024 10:22 AM [facility] Creatinine 2.11(H) 0.50 - 1.10 mg/dL LAB CHEMISTRY METHOD 04/18/2024 10:22 AM [facility] eGFR 27(L) >=60 mL/min/1. 73m2 LAB CHEMISTRY METHOD 04/18/2024 10:22 AM [facility] Comment:Calculation based on the??Chronic Kidney Disease Epidemiology Collaboration (CKD-EPI) equation refit??without adjustment for race. BUN/Creatinine Ratio 14.7 LAB CHEMISTRY METHOD 04/18/2024 10:22 AM [facility] Calcium 9.2 8.5 - 10.5 mg/dL LAB CHEMISTRY METHOD 04/18/2024 10:22 AM [facility] AST (SGOT) 18 10 - 42 unit/L LAB CHEMISTRY METHOD 04/18/2024 10:22 AM [facility] ALT (SGPT) 21 10 - 60 unit/L LAB CHEMISTRY METHOD 04/18/2024 10:22 AM [facility] Alkaline Phosphatase 112 42 - 121 unit/L LAB CHEMISTRY METHOD 04/18/2024 10:22 AM [facility] Total Protein 6.5 6.0 - 8.0 g/dL LAB CHEMISTRY METHOD 04/18/2024 10:22 AM [facility] Albumin 3.4 3.2 - 5.0 g/dL LAB CHEMISTRY METHOD 04/18/2024 10:22 AM [facility] Total Bilirubin 0.2 0.0 - 1.4 mg/dL LAB CHEMISTRY METHOD 04/18/2024 10:22 AM EST [facility] Blood Venous blood specimen / Unknown Venipuncture / Unknown 04/18/2024 8:43 AM EST 04/18/2024 8:44 AM EST us Haydee Espinosa MD LAB BLOOD ORDERABLES Fi nal Result [facility] [address] [place] [address], [place] [phone] documented in this encounter Visit Diagnoses Diagnosis Class 2 obesity with body mass index (BMI) of 39.0 to 39.9 in adult, unspecified obesity type, unspecified whether serious comorbidity present documented in this encounter Care Teams Roller Die Cutting Machine Operator Relationship Specialty Start Date End Date Daryn Duarte MD [address] [place] [address] Dr Molina [facility] [place], [place] PCP - General Internal Medicine 05/21/17 documented as of this encounter
[2024-05-18 11:12] VITALS: BP 130/70
== END 2024-05-18 11:20 | disposition home or self-care (01) ==
PROVIDERS: PCP Internal Medicine; Visit Provider Internal Medicine Hypertension Specialist
DX: R80.9 Proteinuria, unspecified (principal); N18.32 Chronic kidney disease, stage 3b; I10 Essential (primary) hypertension; E66.9 Obesity, unspecified
CPT/HCPCS: 99214

== ENCOUNTER → 2024-05-18 10:30 | Outpatient (BNVA) | payer OTHER, SELFPAY | PROVIDERS: PCP Internal Medicine; Visit Provider Internal Medicine Hypertension Specialist | DX: I12.9 Hypertensive chronic kidney disease with stage 1 through stage 4 chronic kidney disease, or unspecified chronic kidney disease (principal); R80.9 Proteinuria, unspecified; E66.9 Obesity, unspecified; N18.32 Chronic kidney disease, stage 3b; Z68.35 Body mass index [BMI] 35.0-35.9, adult | CPT/HCPCS: 99212 ==

== ENCOUNTER 2024-05-23 12:40 | Outpatient (REF) | payer OTHER, SELFPAY ==
--- NOTE | ~2024-05-23 | MM_ITS ---
EXAMINATION: MM DIAGNOSTIC DIGITAL BREAST TOMOSYNTHESIS, BILATERAL CLINICAL INFORMATION: Follow-up right breast grouped calcifications upper central breast previously biopsied with benign pathology. COMPARISON: Mammography: Comparison is made with relevant prior exams. TECHNIQUE: Digital breast mammography with tomosynthesis is performed in both the craniocaudal and mediolateral oblique views along with computer-aided detection (CAD). FINDINGS: There are scattered areas of fibroglandular density (ACR BI-RADS breast composition Category b). Marker clips in the upper central right breast from previous benign needle core biopsies. Grouped punctate and faint calcifications in the upper central breast were previously biopsied with benign pathology and are not significantly changed from priors dating back for 2 years and therefore benign. There are no significant masses, abnormal calcifications, or other abnormalities. Results are provided to the patient at time of visit by the technologist. MM/MM tomosynthesis diagnostic BI IMPRESSION: There are no significant changes from prior study. ASSESSMENT: BI-RADS BI-RADS 2 - Benign Findings RECOMMENDATION: 1 year F/U This patient's information was entered into a reminder system with a target due date for their next mammogram. Electronically signed by: Angelica Whitaker DO 05/23/2024 03:00 PM [facility]
--- OUTSIDE RECORDS SUMMARY | 2024-05-23 14:22 | XMS_ITS | Data Portability ---
Author Organization [place] - [facility], Allergy Address [address] [place] [phone] Assessment No assessment recorded. Plan of Treatment [...] Time Disorder of right Eustachia n tube [id number] Active 2019 Other specified disorders of Eustachia n tube, right ear; Note: Date Diagnosed : 04/13/2019 3:52 PM (H69.81) Not Available [facility] 4 02:31:20 Migraine without aura, not refractor y 520679405 Active 2019 Migraine without aura, not intractab le, without status migrainos us; Note: Date Diagnosed : 04/13/2019 3:52 PM (G43.009) Not Available [facility] 4 02:31:10 Otalgia of right ear 7201453287 Active 2019 Otalgia, right ear; Note: Date Diagnosed : 04/13/2019 3:52 PM (H92.01) Not Available [facility] 4 02:31:19 Mass of neck 671586356 Active 2019 Localized swelling, mass and lump, neck; Note: Date Diagnosed : 06/09/2019 4:03 PM (R22.1) Not Available [facility] 4 02:31:13 Neck swelling 767082668 Active 2019 Localized swelling, mass and lump, neck; Note: Date Diagnosed : 06/09/2019 4:03 PM (R22.1) Not Available [facility] 4 02:31:13 Temporoma ndibular joint disorder 73552885 Active 2019 Other specified disorders of temporoma ndibular joint; Note: Date Diagnosed : 04/13/2019 3:57 PM (M26.69) Not Available [facility] 4 02:31:12 Tinnitus of right ear 34106382178 08 Active 2019 Tinnitus, right ear; Note: Date Diagnosed : 04/13/2019 3:52 PM (H93.11) Not Available [facility] 4 02:31:24 Severe obesity 48709634445 104 Active 2019 Morbid (severe) obesity due to excess calories; Note: Date Diagnosed : 04/13/2019 3:52 PM (E66.01) Not Available [facility] 4 02:31:11 Problem Notes None recorded. Procedures Surgical History None recorded. Imaging Results Imaging Date Name Status LastModified by Organiz ation Details LastModified Time 08/03/2023 MRI, head + neck + orbits, w/wo [email or web address] Information not available 10/20/2023 11:27:36 04/13/2019 audiogram [...] Name and Address Organization Details Recorded Time 79169 morphine medicatio n other Not available Not available 08/11/2023 7052 RxNorm React ion: unkno wn, unspe cifie d;; Not Available [facility] 4 00:59:01 Medications Name Sig Start Date Stop Date Status Note LastModified by Organization Details LastModified Time losartan 50 mg tablet Take 1 tablet (50 mg total) by mouth in the morning and 1 tablet (50 mg total) in the evening. active Not Available Not Available No t Available furosemid e 40 mg tablet 2019 active Medicati on ID: [id number] D uration Value: 30 Brand Name: furosemjesse de Send Method: E-Prescr ibed Sub s Allowed: subs OK Speci al Instruct ion: TAKE ONE TABLET BY MOUTH ONCE DAILY Me dication GenericN zoe: furosemi de Not Available Not Available Not Available ranitidin e 300 mg tablet 2019 active Medicati on ID: [id number] D uration Value: 30 Brand Name: ranitidi ne HCl Send Method: E-Prescr ibed Sub s Allowed: subs OK Speci al Instruct ion: TAKE ONE TABLET BY MOUTH ONCE A DAY Medi cationGe nericNam e: ranitidi ne HCl Not Available Not Available Not Available sumatript an 100 mg tablet 2019 active Medicati on ID: 479648 D uration Value: 30 Brand Name: sumatrip [...] mg tablet 2020 active Medicati on ID: [id number] B rand Name: famotidi ne Send Method: [...] mg tablet 2019 active Medicati on ID: 588653 D uration Value: 30 Brand Name: amlodipi [...] mg tablet 2020 active Medicati on ID: [id number] B rand Name: dicyclom ine Send Method: [...] mg capsule 2020 active Medicati on ID: [id number] B rand Name: docusate sodium S end [...] nasal spray 2020 active Medicati on ID: 824702 B rand Name: ipratrop ium bromide Send [...] Available Senexon 2019 active Medicati on ID: [id number] D uration Value: 30 Brand Name: True Send Method: E-Prescr ibed Sub s Allowed: subs ADENIKE Yip al Instruct ion: TAKE 2 TABLETS BY MOUTH ONCE A DAY AT BEDTIME NEEDED Eleonora Cosby Name: True Not Available Not Available Not Available Doc-Q-Lac e 05/28 completed Medicati on ID: [id number] D uration Value: 30 Brand Name: Doc-Q-La [...] unit) capsule 2019 active Medicati on ID: [id number] D uration Value: 30 Brand Name: D3 Send Method: E-Prescr ibed Sub s Allowed: subs ADENIKE Yip al Instruct ion: TAKE ONE CAPSULE BY MOUTH DAILY Me dication GenericN zoe: D3-2000 Not Available Not Available Not Available Cerovite Senior 0.4 mg-300 mcg-250 mcg tablet 2019 active Medicati on ID: [id number] D uration Value: 30 Brand Name: Cerovite [...] mcg capsule 2019 active Medicati on ID: [id number] D uration Value: 30 Brand Name: Elías [...] Updated DateTime 09/28/2023 154.94 cm 38.4 kg/m2 10287.25 g Pati Daly [place] - [facility] 09/28/2023 13:08:36 Social History None recorded. Functional [...] Note [id number] JIMENA HERRERA MD [facility] of [address] [address] 09/28/2023 13:02:32 09/28/2023 17:08:11 Mass of neck [id number] R22.1 58-year-ol d female presents today for [...] Ramsey Member ID Guarantor Name 09/28/2023 1 [facility] - DOS ON OR AFTER 2022 - ONE CARE (MEDICARE REPLACEMENT/ADV ANTAGE - HMO) Roxie Hobbs [id number] Roxie Hobbs Notes Date Note Type Note [...] not recall having this. JIMENA HERRERA MD [address] [place] [address], [place], [address], [place] - [facility] 10/07/2023 08:39:38 OBGyn Episode No OBEpisode recorded.
--- OUTSIDE RECORDS SUMMARY | 2024-05-23 14:22 | XMS_ITS | Encounter Summary ---
Author Organization [facility] Address [address] [place] [address] Phone Care Team Providers Care Chemical Sales Representative Name Role Phone Daryn Duarte MD Primary Care Provider [phone] Encounter Details Date Type Department Care Team (Late st Contact Info) Description 11/19/2021 Telephone [facility] [address] [place] [phone] Mati Durbin MD Social History Tobacco Use [...] your suggestion. Please advise Thank you CB# [phone] Thank you documented in this encounter Plan of Treatment Not on file documented as of this encounter Visit Diagnoses Not on filedocumented in this encounter Care Teams Chemical Sales Representative Relationship Specialty Start Date End Date Daryn Duarte MD [address] [place] [address] [address] [place] [address] PCP - General 04/09/20 documented as of this encounter
--- OUTSIDE RECORDS SUMMARY | 2024-05-23 14:22 | XMS_ITS | Clinical Summary ---
Author Organization [facility] Address [address] [place] [address] Phone Care Team Providers Care Deck Molder Name Role Phone Daryn Duarte MD Primary Care Provider [phone]- [phone] Allergies Active Allergy Reactions Criticality Noted Date [...] 2 Active Cholecalciferol (Vitamin D3) 250 MCG (02177 UT) tablet Take by mouth Activ e [...] (#1) 2023 Insurance (A2793) (A2793) Care Teams Deck Molder Relationship Specialty Start Date End Date Daryn Duarte MD [address] [place] [id number] PCP - General 04/09/20
--- OUTSIDE RECORDS SUMMARY | 2024-05-23 14:22 | XMS_ITS | Encounter Summary ---
Author Organization [employer] Address [address] [place] [address] Care Team Providers Care Parts Technician Name Role Phone Daryn Duarte MD Primary Care Provider [phone] Reason for Visit * Reason Onset Date Comments Prior auth 04/21/2024 Prior auth Encounter Details Date Type Department Care Team (Late st Contact Info) Description 04/21/2024 Telephone Bariatric Surgery [place] 175 [facility] [address] [place] [phone] Tavon Galdamez MD 175 [facility] [address] [place] [address] Prior auth (Prior auth) Social History Tobacco [...] 1:30 PM EST Nutrition [facility]ariat[facility] - [place] [address] [phone] [address] 08/23/2024 10:00 AM EDT Office Visit [facility]ariat[facility] - [place] [address] [phone] Tavon Galdamez MD [address] [address] documented as of this encounter Visit Diagnoses Not on filedocumented in this encounter Care Teams Parts Technician Relationship Specialty Start Date End Date Daryn Duarte MD [address] [place] [address] Dr [address] [place], [place] PCP - General Internal Medicine 05/21/17 documented as of this encounter
--- OUTSIDE RECORDS SUMMARY | 2024-05-23 14:22 | XMS_ITS | Encounter Summary ---
Author Organization [facility] Address [address] [place] [address] Care Team Providers Care Spice Grinder Name Role Phone Daryn Duarte MD Primary Care Provider [phone] Reason for Visit * Reason Comments Obesity Encounter Details Date Type Department Care Team (Late st Contact Info) Description 05/02/2024 10:30 AM EST Nutrition Bariatric Surgery - [place] [address] [phone] Yun Hernandez, RD [address] [address] Class 2 obesity with body mass index [...] in the computer. You can go to [facility] at [address] [place] [address], [address], when you are ready. They open at 7:30am. You can also go to another [facility] lab that may be more conveniently located. No food/drink after midnight please - these are fasting labs. NO GUM, CANDY, MINTS, TUMS, OR WATER FOR ONE HOUR BEFORE! You have a pendinghpylori lab. If you would like, you can join our Facebook group [facility] Bariatric Support Group. (It has a picture of a yellow shirt with a tape measure). Support group (Facebook): Please watch the videos I posted on the FB page (use the magnifying glassto search for [facility] Bariatric Dietitian to locate my posts and [...] from 5:30-6:30pm in the second-floor cafeteria of [address] [place] [address]. No need tosign up, feel free to just show up. Psych eval: You have two options for your psychological evaluation Dr. Carin Gillespie [phone] [place], [facility] [phone]. Both are doing remote visits. Call either one and let them know you are in the [facility] Bariatric Program and need a psych [...] your primary care office is *not* within [facility], please ask them to fax their office note to [phone]. Patient-created Goals: Surgeon sent prescription for iron Fluid goal: 64 ounces daily, slowly sip- limit juice or switch to diet juice Please check with your sleeve separator regarding protein guidance (our guidance is typically 60-80g daily) Aim to include protein every time you eat to help with appetite https://www.[employer].org/get-help/lrjitm-vmzv-tlcf/ Use protein handout to learn protein content of different foods May purchase a food scale * Yun Hernandez RD - 05/02/2024 10:30 AM EST NUTRITION FOLLOW-UP NOTE: Patient Name: Roxie Hobbs Date of : 1965 Date of Service: 05/02/2024 SURGEON: Dr. Haydee Espinosa, Dr. Galdamez for medication DESIRED SURGERY: Sleeve gastrectomy Would need nephrology clearance CKD III- told from sleeve separator to increase water and minimize salt (encouraged pt to talk to sleeve separator to discuss protein guidance apt 05/18/23) Started [...] to diet juice Please check with your sleeve separator regarding protein guidance (our guidance is typically 60-80g daily) Aim to include protein every time you eat to help with appetite https://www.[employer].org/get-help/lgqdsq-reqt-uyoq/ Use protein handout to learn protein content [...] (>50% of the time spent) in direct hmln-jw-fbwl consultation for counseling, reviewing medical record and/or coordinating the plan as described above. Yun Hernandez RD NUTRITION SERVICES Cosigned by Tavon Galdamez MD at 05/02/2024 4:05 PM EST documented in this encounter Plan of Treatment Upcoming Encounters Date Type Department Care Team (Late st Contact Info) Description 05/30/2024 1:30 PM EST Nutrition Bariatric Surgery - [place] [address] [phone] [address] 08/23/2024 10:00 AM EDT Office Visit Bariatric Surgery [facility] [address] [phone] Tavon Galdamez MD [address] [address] Scheduled Orders Name Type Priority Associated Diagnoses [...] Primary documented in this encounter Care Teams Spice Grinder Relationship Specialty Start Date End Date Daryn Duarte MD [address] [place] [address] Dr [address] ABIGAIL Charles PCP - General Internal Medicine 05/21/17 documented as of this encounter
--- OUTSIDE RECORDS SUMMARY | 2024-05-23 14:22 | XMS_ITS | Clinical Summary ---
Author Organization 175 [facility] Address 175 [place] [address] Phone Care Team Providers Care Senior Ui Ux Developer Name Role Phone Daryn Duarte MD Primary Care Provider [phone] Allergies Active Allergy Reactions Criticality Noted Date [...] (BMI) of 38.0 to 38.9 in adult ([facility]) Inject 0.5 mL (2.5 mg [...] Care Team Description 05/10/2024 Telephone Bariatric Surgery [address] [phone] Tavon Galdamez MD Med Refill (zepbound) 05/02/2024 10:30 AM EST Nutrition Bariatric Surgery [address] [phone] Class 2 obesity with body mass index (BMI) of 38.0 to 38.9 in adult, unspecified obesity type, unspecified whether serious comorbidity present (Primary Dx) 04/21/2024 9:00 AM EST Office Visit Bariatric Surgery [address] [phone] Tavon Galdamez MD Class 2 severe obesity due to excess calories with serious comorbidity and body mass index (BMI) of 38.0 to 38.9 in adult ([facility]) (Primary Dx) 04/21/2024 Telephone Bariatric Surgery - [address] [phone] Tavon Galdamez MD Prior auth (Prior auth) 04/18/2024 8:45 AM EST Lab Draw Station - [address] [place] [address] [address] [facility] [address] [place] [phone] Class 2 obesity with body mass index (BMI) of 39.0 to 39.9 in adult, unspecified obesity type, unspecified whether serious comorbidity present 03/31/2024 1:30 PM EST Nutrition Bariatric Surgery - [address] [phone] Class 2 obesity with [...] 05/30/2024 1:30 PM EST Nutrition Bariatric Surgery [address] [phone] [address] 08/23/2024 10:00 AM EDT Office Visit Bariatric Surgery [address] [phone] Tavon Galdamez MD [address] [place] [address] Health Maintenance Due Date Last Done Comments [...] to direct LDL (04/18/2024 8:43 AM EST) [facility] Cholesterol 181 0 - 200 mg/dL LAB CHEMISTRY METHOD 04/18/2024 10:22 AM EST [facility] Triglycerides 90 0 - 150 mg/dL LAB CHEMISTRY METHOD 04/18/2024 10:22 AM EST [facility] HDL 58 >=40 mg/dL LAB CHEMISTRY METHOD 04/18/2024 10:22 AM EST [facility] LDL Calculated 105(H) 0 - 100 mg/dL LAB CHEMISTRY METHOD 04/18/2024 10:22 AM [facility] VLDL Cholesterol Gerhard 18 mg/dL LAB CHEMISTRY METHOD 04/18/2024 10:22 AM EST [facility] Non HDL Chol. (LDL+VLDL) 123 <145 mg/dL LAB CHEMISTRY METHOD 04/18/2024 10:22 AM [facility] Chol/HDL Ratio 3.1 0.0 - 4.4 LAB CHEMISTRY METHOD 04/18/2024 10:22 AM [facility] Blood Venous blood specimen / Unknown Venipuncture / Unknown 04/18/2024 8:43 AM EST 04/18/2024 8:44 AM EST Haydee Espinosa MD LAB BLOOD ORDERABLES Fi nal Result [facility] [address] [place] [address], * Nicotine and cotinine (04/18/2024 8:43 AM [...] ?<2 ng/mL Reference Ranges from: ??Clin. Chem.; ??[id number] (2002) Direct any interpretive questions to the [...] at [facility], [address] [place], [place] ??[address] ? [phone] Faiza Narvaez MD, PhD - Continuity Tester Blood Venous blood specimen / Unknown Venipuncture / Unknown 04/18/2024 8:43 AM EST 04/18/2024 8:44 AM EST us Haydee Espinosa MD LAB BLOOD ORDERABLES Fi nal Result [facility] [address] [place] [address] * (ABNORMAL) CBC auto differential (04/18/2024 8:43 AM EST) WBC 5.9 4.8 - 10.8 K/[facility] LAB HEMETOLOGY METHOD 04/18/2024 9:51 AM EST [facility] RBC 4.70 3.80 - 4.80 M/mcL LAB HEMETOLOGY METHOD 04/18/2024 9:51 AM [facility] Hemoglobin 13.7 11.5 - 16.0 g/dL LAB HEMETOLOGY METHOD 04/18/2024 9:51 AM [facility] Hematocrit 44.0 35.0 - 47.0 % LAB HEMETOLOGY METHOD 04/18/2024 9:51 AM [facility] MCV 93.2 79.0 - 98.0 FL LAB HEMETOLOGY METHOD 04/18/2024 9:51 AM [facility] MCH 29.0 27.0 - 32.0 pcg LAB HEMETOLOGY METHOD 04/18/2024 9:51 AM [facility] MCHC 31.1(L) 32.0 - 37.0 g/dL LAB HEMETOLOGY METHOD 04/18/2024 9:51 AM [facility] RDW 13.7 11.0 - 15.0 % LAB HEMETOLOGY METHOD 04/18/2024 9:51 AM [facility] Platelets 190 130 - 400 K/mcL LAB HEMETOLOGY METHOD 04/18/2024 9:51 AM [facility] MPV 11.0 7.0 - 11.0 FL LAB HEMETOLOGY METHOD 04/18/2024 9:51 AM [facility] NRBC 0.0 <1.0 % LAB HEMETOLOGY METHOD 04/18/2024 9:51 AM [facility] NRBC Absolute 0.00 <0.10 K/[facility] LAB HEMETOLOGY METHOD 04/18/2024 9:51 AM [facility] Neutrophils Relative 59.9 % LAB HEMETOLOGY METHOD 04/18/2024 9:51 AM [facility] Lymphocytes Relative 28.2 % LAB HEMETOLOGY METHOD 04/18/2024 9:51 AM [facility] Monocytes Relative 7.9 % LAB HEMETOLOGY METHOD 04/18/2024 9:51 AM EST [facility] Eosinophils Relative 3.2 % LAB HEMETOLOGY METHOD 04/18/2024 9:51 AM [facility] Basophils Relative 0.5 % LAB HEMETOLOGY METHOD 04/18/2024 9:51 AM [facility] Immature Granulocytes Relative 0.3 % LAB HEMETOLOGY METHOD 04/18/2024 9:51 AM [facility] Neutrophils Absolute 3.55 1.50 - 7.00 K/mcL LAB HEMETOLOGY METHOD 04/18/2024 9:51 AM [facility] Lymphocytes Absolute 1.67 1.00 - 5.00 K/mcL LAB HEMETOLOGY METHOD 04/18/2024 9:51 AM [facility] Monocytes Absolute 0.47 0.20 - 1.00 K/mcL LAB HEMETOLOGY METHOD 04/18/2024 9:51 AM EST [facility] Eosinophils Absolute 0.19 0.00 - 0.50 K/mcL LAB HEMETOLOGY METHOD 04/18/2024 9:51 AM [facility] Basophils Absolute 0.03 0.00 - 0.20 K/mcL LAB HEMETOLOGY METHOD 04/18/2024 9:51 AM [facility] Immature Granulocytes Absolute 0.02 0.00 - 0.03 K/mcL LAB HEMETOLOGY METHOD 04/18/2024 9:51 AM [facility] Blood Venous blood specimen / Unknown Venipuncture / Unknown 04/18/2024 8:43 AM EST 04/18/2024 8:44 AM EST us Haydee Espinosa MD LAB BLOOD ORDERABLES Fi nal Result [facility] [address] [place] [address], * (ABNORMAL) Iron and TIBC (04/18/2024 8:43 AM EST) Iron 37(L) 40 - 150 mcg/dL LAB CHEMISTRY METHOD 04/18/2024 10:22 AM EST [facility] TIBC 321 250 - 450 mcg/dL LAB CHEMISTRY METHOD 04/18/2024 10:22 AM EST [facility] Iron Saturation 12(L) 15 - 50 % LAB CHEMISTRY METHOD 04/18/2024 10:22 AM EST [facility] Blood Venous blood specimen / Unknown Venipuncture / Unknown 04/18/2024 8:43 AM EST 04/18/2024 8:44 AM EST us Haydee Espinosa MD LAB BLOOD ORDERABLES Fi nal Result Performing Organization Address City/[facility]/ZIP Co de Phone Number [facility] [address] [place] [address], [place] [phone] * Vitamin D 25 hydroxy (04/18/2024 8:43 AM EST) [facility] Vit D, 25-Hydroxy 31.6 30.0 - 80.0 ng/mL LAB CHEMISTRY METHOD 04/18/2024 10:29 AM EST [facility] Blood Venous blood specimen / Unknown Venipuncture / Unknown 04/18/2024 8:43 AM EST 04/18/2024 8:44 AM EST us Haydee Espinosa MD LAB BLOOD ORDERABLES Fi nal Result [facility] [address] [place] [address], [place] [phone] * (ABNORMAL) Thyroid stimulating hormone (04/18/2024 8:43 AM EST) [facility] TSH 4.79(H) 0.40 - 4.00 mcIU/mL LAB CHEMISTRY METHOD 04/18/2024 10:30 AM EST [facility] Blood Venous blood specimen / Unknown Venipuncture / Unknown 04/18/2024 8:43 AM EST 04/18/2024 8:44 AM EST us Haydee Espinosa MD LAB BLOOD ORDERABLES Fi nal Result Performing Organization Address City/[facility]/ZIP Co de Phone Number [facility] [address] [place] [address], * Vitamin B1 (04/18/2024 8:43 AM EST) Vitamin B1 Whole Blood 88 38 - 122 ug/L 04/22/2024 4:47 AM EST [facility] Comment: This test was developed and the performance characteristics determined by [facility]. It has not been cleared or approved by the FDA. The laboratory is regulated under CLIA as qualified to perform high-complexity testing. This test is used for patient testing purposes. It should not be regarded as investigational or for research. Test performed at [facility], [address] , [place], [place] ??[address] ? [phone] Faiza Narvaez MD, PhD - Continuity Tester Blood Venous blood specimen / Unknown Venipuncture / Unknown 04/18/2024 8:43 AM EST 04/18/2024 8:44 AM EST Haydee Espinosa MD LAB BLOOD ORDERABLES Fi nal Result Performing Organization Address City/[facility]/ZIP Co de Phone Number [facility] [address] [place] [place] [address] * (ABNORMAL) Magnesium (04/18/2024 8:43 AM EST) Magnesium 1.8(L) 1.9 - 2.6 mg/dL LAB CHEMISTRY METHOD 04/18/2024 10:22 AM EST [facility] Blood Venous blood specimen / Unknown Venipuncture / Unknown 04/18/2024 8:43 AM EST 04/18/2024 8:44 AM EST us Haydee Espinosa MD LAB BLOOD ORDERABLES Fi nal Result Performing Organization Address City/[facility]/ZIP Co de Phone Number [facility] [address] [place] [address], [place] [phone] * Hemoglobin A1c (04/18/2024 8:43 AM EST) Pathologist [facility] Hemoglobin A1C 6.1 <6.5 % LAB CHEMISTRY METHOD 04/18/2024 1:32 PM EST [facility] Mean Bld Glu Estim. 128 mg/dL LAB CHEMISTRY METHOD 04/18/2024 1:32 PM EST [facility] Blood Venous blood specimen / Unknown Venipuncture / Unknown 04/18/2024 8:43 AM EST 04/18/2024 8:44 AM EST us Haydee Espinosa MD LAB BLOOD ORDERABLES Fi nal Result Performing Organization Address [facility] Co de Phone Number [facility] [address] [place] [address], [place] [phone] * (ABNORMAL) Folate (04/18/2024 8:43 AM EST) Pathologist [facility] Folate >20.0(H) 2.8 - 17.0 ng/ml LAB CHEMISTRY METHOD 04/18/2024 10:44 AM EST [facility] Blood Venous blood specimen / Unknown Venipuncture / Unknown 04/18/2024 8:43 AM EST 04/18/2024 8:44 AM EST us Haydee Espinosa MD LAB BLOOD ORDERABLES Fi nal Result Performing Organization Address City/[facility]/ZIP Co de Phone Number [facility] [address] [place] [address], [place] [phone] * Ferritin (04/18/2024 8:43 AM EST) Ferritin 52 8 - 252 ng/mL LAB CHEMISTRY METHOD 04/18/2024 10:22 AM EST [facility] Blood Venous blood specimen / Unknown Venipuncture / Unknown 04/18/2024 8:43 AM EST 04/18/2024 8:44 AM EST us Haydee Espinosa MD LAB BLOOD ORDERABLES Fi nal Result [facility] [address] [place] [address], [place] [phone] * Vitamin B12 (04/18/2024 8:43 AM EST) Pathologist [facility] Vitamin B-12 316 250 - 900 pcg/mL LAB CHEMISTRY METHOD 04/18/2024 10:44 AM EST [facility] Blood Venous blood specimen / Unknown Venipuncture / Unknown 04/18/2024 8:43 AM EST 04/18/2024 8:44 AM EST us Haydee Espinosa MD LAB BLOOD ORDERABLES Fi nal Result [facility] [address] [place] [address], * Cortisol (04/18/2024 8:43 AM EST) Cortisol 11.6 mcg/dL LAB CHEMISTRY METHOD 04/18/2024 10:30 AM EST [facility] Blood Venous blood specimen / Unknown Venipuncture / Unknown 04/18/2024 8:43 AM EST 04/18/2024 8:44 AM EST Narrative [facility] - 04/18/2024 10:30 AM EST CORTISOL REFERENCE RANGE ?? 8 AM SPEC: ??5.0-23.0 mcg/dL ?? 4 PM SPEC: ??3.0-16.0 mcg/dL ?? 8 PM SPEC: ??<5.0 mcg/dL us Haydee Espinosa MD LAB BLOOD ORDERABLES Fi nal Result [facility] [address] [place] [address], [place] [phone] * (ABNORMAL) Comprehensive metabolic panel (04/18/2024 8:43 AM EST) Sodium 140 133 - 145 mmol/L LAB CHEMISTRY METHOD 04/18/2024 10:22 AM [facility] Potassium 4.6 3.5 - 5.5 mmol/L LAB CHEMISTRY METHOD 04/18/2024 10:22 AM [facility] Chloride 106 96 - 110 mmol/L LAB CHEMISTRY METHOD 04/18/2024 10:22 AM [facility] CO2 30 21 - 32 mmol/L LAB CHEMISTRY METHOD 04/18/2024 10:22 AM [facility] Anion Gap 4 3 - 11 LAB CHEMISTRY METHOD 04/18/2024 10:22 AM [facility] Glucose 90 70 - 100 mg/dL LAB CHEMISTRY METHOD 04/18/2024 10:22 AM [facility] BUN 31(H) 5 - 25 mg/dL LAB CHEMISTRY METHOD 04/18/2024 10:22 AM [facility] Creatinine 2.11(H) 0.50 - 1.10 mg/dL LAB CHEMISTRY METHOD 04/18/2024 10:22 AM [facility] eGFR 27(L) >=60 mL/min/1. 73m2 LAB CHEMISTRY METHOD 04/18/2024 10:22 AM [facility] Comment:Calculation based on the??Chronic Kidney Disease Epidemiology Collaboration (CKD-EPI) equation refit??without adjustment for race. BUN/Creatinine Ratio 14.7 LAB CHEMISTRY METHOD 04/18/2024 10:22 AM [facility] Calcium 9.2 8.5 - 10.5 mg/dL LAB CHEMISTRY METHOD 04/18/2024 10:22 AM [facility] AST (SGOT) 18 10 - 42 unit/L LAB CHEMISTRY METHOD 04/18/2024 10:22 AM [facility] ALT (SGPT) 21 10 - 60 unit/L LAB CHEMISTRY METHOD 04/18/2024 10:22 AM [facility] Alkaline Phosphatase 112 42 - 121 unit/L LAB CHEMISTRY METHOD 04/18/2024 10:22 AM [facility] Total Protein 6.5 6.0 - 8.0 g/dL LAB CHEMISTRY METHOD 04/18/2024 10:22 AM [facility] Albumin 3.4 3.2 - 5.0 g/dL LAB CHEMISTRY METHOD 04/18/2024 10:22 AM [facility] Total Bilirubin 0.2 0.0 - 1.4 mg/dL LAB CHEMISTRY METHOD 04/18/2024 10:22 AM [facility] Blood Venous blood specimen / Unknown Venipuncture / Unknown 04/18/2024 8:43 AM EST 04/18/2024 8:44 AM EST us Haydee Espinosa MD LAB BLOOD ORDERABLES Fi nal Result [facility] [address] [place] [address], from Last 3 Months Insurance [facility] Member Subscriber Plan / Payer (Ef fective 2018-Present) Name:Roxie Hobbs I Relation to Subscriber:Self Name:Roxie Hobbs I Payer ID:[id number] Group ID:[id number] Type:Not on file Address: [facility] [address] [address] Care Teams Senior Ui Ux Developer Relationship Specialty Start Date End Date Daryn Duarte MD [address] [place] [address] [facility] ABIGAIL Charles PCP - General Internal Medicine 05/21/17
--- OUTSIDE RECORDS SUMMARY | 2024-05-23 14:22 | XMS_ITS | Encounter Summary ---
Author Organization [employer] Address [address] [place] [address] Care Team Providers Care Account Group Supervisor Name Role Phone Daryn Duarte MD Primary Care Provider [phone] Reason for Visit * Reason Onset Date Comments Med Refill 05/10/2024 zepbound Encounter Details Date Type Department Care Team (Late st Contact Info) Description 05/10/2024 Telephone Bariatric Surgery - [place] [address] [phone] Tavon Galdamez MD [address] [address] Med Refill (zepbound) Social History Tobacco Use [...] 1:30 PM EST Nutrition Bariatric Surgery - [place] [address] [phone] Yun Hernandez, SHIRA [address] [address] 08/23/2024 10:00 AM EDT Office Visit Bariatric Surgery - [place] [address] [phone] Tavon Galdamez MD [address] [address] documented as of this encounter Visit Diagnoses Not on filedocumented in this encounter Care Teams Account Group Supervisor Relationship Specialty Start Date End Date Daryn Duarte MD [address] [place] [address] [address] [place], [place] PCP - General Internal Medicine 05/21/17 documented as of this encounter
== END 2024-05-23 12:41 | disposition home or self-care (01) ==
LOC: HO.MAMMO 12:40
PROVIDERS: PCP Internal Medicine; Visit Provider Internal Medicine
DX: R92.1 Mammographic calcification found on diagnostic imaging of breast (principal)
CPT/HCPCS: 77062; 77066

== ENCOUNTER → 2024-05-23 12:45 | Outpatient (BNV) | payer OTHER, SELFPAY | PROVIDERS: PCP Internal Medicine; Visit Provider Internal Medicine | DX: R92.1 Mammographic calcification found on diagnostic imaging of breast (principal) | CPT/HCPCS: 77066; G0279 ==

== ENCOUNTER 2024-06-22 15:28 | Outpatient (AMB) | payer OTHER, SELFPAY ==
[2024-06-22 15:30] VITALS: BP 124/82; PULSE 64; O2SAT 99; BMI 36.7
--- NOTE | 2024-06-22 15:30 | A.OFFPC_ITS ---
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: No Accompanied by: Self / Same As Patient Allergies diphenhydramine [From Benadryl] Allergy (Severe, Verified 06/22/24 16:16) Angioedema hydromorphone [From Dilaudid] Allergy (Intermediate, Verified 06/22/24 16:16) Increased BP FRANK Inhibitors [FRANK INHIBITORS] Allergy (Unknown, Verified 06/22/24 16:16) PER H&P codeine Allergy (Unknown, Verified 06/22/24 16:16) Rash meperidine Allergy (Unknown, Verified 06/22/24 16:16) Rash morphine Allergy (Unknown, Verified 06/22/24 16:16) RASH, DIFF BREATHING,CHEST PRESSURE, throat swelling TAPE,PLASTIC Allergy (Unknown, Uncoded 06/22/24 16:16) Rash Medication List - Last Reconciled 06/22/24 by Daryn Duarte MD [ADULT PULL UPS (medium) As directed - #60 / month (2 pull ups/day) with 12 refills] albuterol sulfate 90 mcg/actuation 2 puffs PO Q4H PRN amitriptyline 10 mg PO BEDTIME amlodipine 10 mg PO DAILY [BEDSIDE COMMODE As directed] [bladder pads As directed - #90/month (3 pads / day), with 12 refills] budesonide-formoterol 160-4.5 mcg/actuation 2 inhalations inhalation BID cholecalciferol (vitamin D3) 25 mcg PO DAILY [CPAP device As directed] dapagliflozin propanediol (Farxiga) 10 mg PO DAILY 90 days diclofenac sodium 1% (Arthritis Pain (diclofenac)) 2 grams topical QID PRN ferrous sulfate 325 mg PO TID [foot pedal As directed] furosemide 20 mg PO DAILY [incontinence wipes As directed] lansoprazole 30 mg PO DAILY linaclotide (Linzess) 145 mcg PO QAM losartan 100 mg PO DAILY magnesium oxide 400 mg PO DAILY nystatin 1 appl topical BID PRN rizatriptan 10 mg PO Q2-4H PRN sennosides (Savanna-dean) 17.2 mg (2 x 8.6 mg) PO BEDTIME simethicone (Gas Relief Extra Strength) 125 mg PO QID PRN tirzepatide (weight loss) (Zepbound) 2.5 mg subcut QWEEK tizanidine 2 mg PO BID PRN topiramate 100 mg PO BID trospium ER 60 mg PO DAILY vibegron (Gemtesa) mg PO ONCE Tobacco use date assessed: 06/22/24 Dental Screening Dental Screen Date: 06/22/24 Did you have a dental visit in the last 12 months?: No Did you have a dental problem in the last 6 months where you did not have access to dental care?: No Was dental information given to patient?: Patient has dentist HPI CPE HPI Details Patient comes in today for her annual physical examination States that she feels okay She denies any headaches or dizziness Denies any chest pains, no increased shortness of breath No nausea/vomiting, no abdominal pain No change in bowel habits noted She denies any acute urinary symptoms She had some previously ordered labs that were supposed to be done prior to this visit but she has not been able to do this yet She had some other follow-up labs done last month - to discuss her results She is not yet due for her repeat colonoscopy, which will be in 2026 States that she just had her annual mammogram done last month She goes to [facility] in [place] for her yearly gynecology exam and Pap smear - states that she has not had this done in a couple of years now and she will be calling them to schedule an appointment soon Patient just went into menopause about a year ago so she is not yet due for osteoporosis screening [facility] Medical History (Updated 06/23/24 @ 04:49 by Daryn Duarte MD) Edema Benign essential hypertension FSGS (focal segmental glomerulosclerosis) Family history of colonic polyps Left-sided low back pain with sciatica Mid back pain on right side Left hip pain Back pain Abdominal cramping Right lateral abdominal pain Right flank pain Pre-op examination LEANNA treated with BiPAP RLQ abdominal tenderness Right flank pain Left elbow pain Left shoulder pain Urinary incontinence Breast calcification, right Chronic renal insufficiency Asthma Migraine Normal colonoscopy (~12/25/16) Obstructive sleep apnea Diverticulitis Vitamin D deficiency Hypertension Surgical History History of biopsy History of facial surgery History of carpal tunnel repair History of nasal surgery History of ankle surgery (~2012) History of cryosurgery History of pubovaginal sling Hx of hernia repair History of bilateral tubal ligation Hx laparoscopic cholecystectomy (~2001) History of esophagogastroduodenoscopy Hx of colonoscopy Family History Mother High blood pressure Diabetes Arthritis Father Diabetes Kidney disease Heart disease Brother Diabetes Maternal Aunt Cancer of breast Brother Colon cancer, Onset Age: 57 Maternal Grandmother Cancer of breast Social History Household Members: None Housing: Apartment Alcohol intake: current Alcohol intake frequency: a few times a month Alcohol type: wine and hard liquor Patient Tobacco Use Status: Former Tobacco user Tobacco use type: Cigarette Years Smoked: 7 e-Cigarette/Vaping Use: Never Used Second Hand Smoke Exposure: No service: No Current occupational status: disabled Current occupational exposures/hazards: No Cognitive needs: No Hearing needs: No Vision needs: Yes Female Reproductive History Menstrual Age of Menarche: 13 Questionnaire PHQ-9 Over the last 2 weeks, how often have you been bothered by any of the following problems? 1. Little interest or pleasure in doing things: more than half the days 2. Feeling down, depressed, or hopeless: several days 3. Trouble falling or staying asleep, or sleeping too much: more than half the days 4. Feeling tired or having little energy: more than half the days 5. Poor appetite or overeating: not at all 6. Feeling bad about yourself - or that you are a failure or have let yourself or your family down: not at all 7. Trouble concentrating on things, such as reading the newspaper or watching television: not at all 8. Moving or speaking so slowly that other people could have noticed. Or the opposite - being so fidgety or restless that you have been moving around a lot more than usual: not at all 9. Thoughts that you would be better off or of hurting yourself in some way: not at all Total score: 7 Depression Screening Interpretation: Positive Depression Screening Follow-up: Existing condition and In treatment Depression Screening Done: Yes 35141 - PHQ-9 Billing: Yes Source: Developed by Drs. Loi Fan, Lucia Lua, Trevor Lynch and colleagues, with an educational dion from [employer]. Thrive Questionnaire Date Thrive assessed: 06/22/24 I am a: Patient What is your living situation today?: I have a steady place to live Within the past 12 months, did the food you bought not last and you didn't have the money to get more?: I choose not to answer this question Within the past 12 months, did you worry whether your food would run out before you got money to buy more?: I choose not to answer this question Do you have trouble paying for medicines?: No Do you have trouble getting transportation to medical appointments?: No Do you have trouble paying your heating and electricity bill?: Yes Do you have trouble taking care of your child, family member or friend?: No Do you have trouble with day-to-day activities such as bathing, preparing meals, shopping, managing finances, etc.?: Yes Are you currently unemployed and looking for a job?: I choose not to answer this question Are you interested in more education?: Yes Please select the resources that you would like help with: Utilities and Education Currently or been in a relationship where the following occur: I choose not to answer THRIVE Score: 1 AUDIT C Alcohol Use Questionnaire (AUDIT-C) 1. How often do you have a drink containing alcohol?: Monthly or less 2. How many drinks containing alcohol do you have on a typical day when you are drinking?: 1 or 2 3. How often do you have six or more drinks on one occasion?: Monthly Total Score: 3 Score Reviewed/Action Taken: Yes JACOB-7 AMB Questionnaire JACOB-7 Date JACOB - 7 assessed: 06/22/24 Feeling nervous, anxious, or on edge: 1 = Several days Not being able to stop or control worryin = Several days Worrying too much about different things: 1 = Several days Trouble relaxin = Nearly every day Being so restless that it is hard to sit still: 1 = Several days Becoming easily annoyed or irritable: 0 = Not at all Feeling afraid as if something awful might happen: 1 = Several days Total JACOB-7 score (0-4 normal; 5-9 mild; 10-14 moderate; 15-21 severe): 8 Source: Developed by Drs. Loi Fan, Lucia Lua, Trevor Lynch and colleagues, with an educational dion from [employer]. Review of Systems Const Denies chills, Reports fatigue, Denies fever(s), Denies headache(s) and Denies malaise Eyes Denies blurry vision, Denies change in vision, Denies irritation and Denies itchy eyes ENT Denies dysphagia, Denies dizziness, Denies otalgia, Denies headache(s), Denies nasal congestion, Denies neck pain, Denies odynophagia and Denies sore throat Card Denies chest pain, Denies rapid heart rate, Denies irregular heart rhythm, Denies palpitations and Denies dyspnea Resp Denies chest congestion, Denies cough, Denies dyspnea and Denies wheezing GI Denies abdominal pain, Denies bloating, Denies constipation, Denies dysphagia, Denies heartburn, Denies diarrhea, Denies nausea, Denies odynophagia and Denies vomiting Denies hematuria, Denies urinary frequency, Denies dysuria, Denies urinary incontinence and Denies urinary urgency Musc Reports back pain (more on the left side), Reports arthralgias (increased pain in both knees; right wrist ), Denies joint swelling, Reports muscle cramps (in both legs, with increased activity or walking), Denies neck pain and Reports radiating pain into limb (down her left leg) Skin/Breast Denies breast pain, Denies breast mass, Denies change in pigmentation, Denies lesions, Denies rash and Denies unusual bruising Neuro Denies dizziness, Denies headache(s) and Denies paresthesias Psych Denies anxiety and Denies depression Endo Reports fatigue and Denies palpitations Leland/Lymph Denies easy bruising Aller/Immun Denies itchy eyes and Denies wheezing Physical exam (Primary Care) Vital Signs: Last Vital Signs Pulse 64 06/22/24 15:30 BP 124/82 06/22/24 15:30 Pulse Ox 99 06/22/24 15:30 Oxygen Delivery Method Room Air 06/22/24 15:30 BMI result Body Mass Index 36.7 Tobacco/Smoking Status: Tobacco use Status Tobacco use date assessed 06/22/24 06/22/24 15:41 Patient Tobacco Use Status Former Tobacco user 06/22/24 15:41 Tobacco use type Cigarette 06/22/24 15:41 e-Cigarette/Vaping Use Never Used 06/22/24 15:41 PHQ-9: PHQ-9 Score PHQ-9: Total score 7 06/22/24 16:19 Depression Screening Interpretation: Positive Depression Screening Follow-up: Existing condition and In treatment Thrive Assessment: Date of Thrive Assessment Date Thrive assessed 06/22/24 06/22/24 15:41 Currently or been in a relationship where the following occur: I choose not to answer Const General: no acute distress, alert and awake Orientation/consciousness: patient oriented x3 HENMT Head: Yes normocephalic and Yes atraumatic Ears: external ears normal, TM's normal bilaterally and EAC's normal General nose exam: No nasal discharge present Face and sinus: Yes normal facial exam and Yes sinuses nontender Teeth and gingiva: dentition normal Throat: Yes posterior oropharynx normal and Yes tonsils normal (no TP congestion) Eyes Eyelids: Yes eyelids normal Conjunctivae: conjunctivae normal Pupils: Equal, round and reactive pupils present EOM: EOMs intact bilaterally Neck Neck: Yes no lymphadenopathy and Yes supple Thyroid: Thyroid normal Resp Auscultation: clear to auscultation bilaterally, no rales and no wheezes Cardio Rate: regular rate Rhythm: regular rhythm Heart sounds: no murmurs GI Palpation (GI): Soft to palpation, nontender and No hepatosplenomegaly present Auscultation: normal bowel sounds General: Yes no CVA tenderness Back/Spine/Pelvis Back: no CVA tenderness Thoracic/Lumbar Spine: thoracic spinal tenderness (over the lower half of the thoracic spine) and lumbar spinal tenderness Skin Lesions: no lesions Rashes: no rashes Neuro General: patient oriented x3, moves all extremities, no focal motor deficits and CN's II-XI intact bilaterally Cranial nerves: Yes Equal, round and reactive pupils present Cognition (Neuro): normal cognition Gait exam (Neuro): Normal gait present Extrem General: No clubbing, No cyanosis and Yes pedal edema (trace edema, bilateral) Right lower extremity: knee Details: tenderness Left lower extremity: hip/thigh Details: no tenderness and knee Details: tenderness Results Reviewed Results Reviewed: Laboratory Tests 05/12/24 05/12/24 10:56 11:02 Sodium 143 Potassium 4.9 Creatinine 2.04 H Estimated GFR 25 Random Glucose 82 Calcium 9.9 AST 18 ALT 12 Ur Specific [place] 1.015 Urine Protein 300 (3+) H Urine Glucose (UA) Negative Urine Blood Trace H Urine Nitrite Negative Ur Leukocyte Esterase Negative U Random Total Protein 159 H Urine Creatinine 63.46 Coding Level of Care Code Est Pt Prev Care 40-64y(40151) Diagnoses Annual physical exam Z00.00 Benign essential hypertension I10 Stage 3b chronic kidney disease N18.32 Chronic kidney disease stage 3 subtype: stage 3b (GFR 30-44) Localized edema R60.0 Edema type: localized Migraine without status migrainosus, not intractable, unspecified migraine type G43.909 Migraine type: unspecified Status migrainosus presence: without status migrainosus Intractability: not intractable Moderate persistent asthma without complication J45.40 Asthma severity: moderate Asthma persistence: persistent Asthma complication type: uncomplicated Obstructive sleep apnea G47.33 Chronic idiopathic constipation K59.04 Roach's esophagus without dysplasia K22.70 Roach's esophagus type: without dysplasia Thoracic spondylosis M47.814 Bilateral primary osteoarthritis of knee M17.0 Closed fracture of right wrist, sequela S62.101S Encounter type: sequela Fracture type: closed Elevated TSH R79.89 Urinary incontinence, unspecified type R32 Urinary Incontinence type: unspecified incontinence Obesity (BMI 30-39.9) E66.9 Additional Codes PHQ-9 - 36394 - PHQ-9 Billing: Yes ([id number]) Assessment & Plan Assessment & Plan (1) Annual physical exam: Code(s): Z00.00 - Encounter for general adult medical examination without abnormal findings Category: Medical Plan: Check labs; her labs done last month were limited and were mostly pertinent to her chronic kidney disease/renal function She has not been able to get a previously ordered labs done prior to this appointment - have advised her to try to get these done CARL She is presently up-to-date with her colon and breast cancer screening - she is not due for her repeat colonoscopy until 2026 States that she just had her annual mammogram done last month, which came out ne swati She goes to [facility] in [place] for her yearly gynecology exam and Pap smear - states that she has not had this done in a couple of years now and she will be calling them to schedule an appointment soon Patient just went into menopause about a year ago so she is not yet due for osteoporosis screening (2) Benign essential hypertension: Code(s): I10 - Essential (primary) hypertension Category: Medical Plan: Reinforced low sodium diet - goal is systolic BP of at least 120 to 130 mm or less, in light of her CKD Continue Losartan 100 mg QD (3) CKD (chronic kidney disease) stage 3, GFR 30-59 ml/min: Comment: 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, with minimal proteinuria Code(s): N18.30 - Chronic kidney disease, stage 3 unspecified Category: Medical Qualifiers: Chronic kidney disease stage 3 subtype: stage 3b (GFR 30-44) Qualified Code(s): N18.32 - Chronic kidney disease, stage 3b Plan: Renal Bx done last year (2023) revealed (+) FSGS Results of her labs done last month reviewed and discussed with patient - she is advised that her renal function appears mostly stable but her serum creatinine and GFR have both been slowly declining over the past year or so Reinforced complete avoidance of NSAIDs and she is encouraged again to increase her oral fluid intake She is currently on Farxiga 10 mg QD to help with her renal function Follow up with nephrology as scheduled Will recheck her labs in 3 months for follow up (4) Edema: Code(s): R60.9 - Edema, unspecified Category: Medical Qualifiers: Edema type: localized Qualified Code(s): R60.0 - Localized edema Plan: Mostly over both lower extremities - is primarily due to lymphedema Continue Furosemide 20 mg QD PRN - dose was lowered by nephrology from 40 mg a few months ago (5) Migraine: Code(s): G43.909 - Migraine, unspecified, not intractable, without status migrainosus Category: Medical Qualifiers: Migraine type: unspecified Status migrainosus presence: without status migrainosus Intractability: not intractable Qualified Code(s): G43.909 - Migraine, unspecified, not intractable, without status migrainosus Plan: Stable on prophylactic Tx with Topiramate 50 mg Q HS Reinforced avoidance of migraine triggers Continue Rizatriptan 10 mg PRN Follow up with neurology as scheduled (6) Asthma: Code(s): J45.909 - Unspecified asthma, uncomplicated Category: Medical Qualifiers: Asthma severity: moderate Asthma persistence: persistent Asthma complication type: uncomplicated Qualified Code(s): J45.40 - Moderate persistent asthma, uncomplicated Plan: Appears controlled Continue Symbicort HFA 160-4.5 mcg 2 inhalations BID and Albuterol HFA 2 in halations Q 6 hours PRN Follow up with [facility] as scheduled (7) Obstructive sleep apnea: Code(s): G47.33 - Obstructive sleep apnea (adult) (pediatric) Category: Medical Plan: Patient continues to use her CPAP device when sleeping at night and has been benefiting from its use Follow up with Sleep Medicine as scheduled - she sees [facility] (8) Chronic idiopathic constipation: Code(s): K59.04 - Chronic idiopathic constipation Category: Medical Plan: Patient is again encouraged on increased oral fluids and dietary fiber Continue Linzess 145 mcg QD and Senna 8.6 mg 2 tablets QD PRN Follow up with GI as scheduled (9) Roach's esophagus: Comment: LAST EGD 2018 DUE FOR REPEAT TO SURVEY 2020 OR 2021. AEB Code(s): K22.70 - Roach's esophagus without dysplasia Category: Medical Qualifiers: Roach's esophagus type: without dysplasia Qualified Code(s): K22.70 - Roach's esophagus without dysplasia Plan: Reinforced dietary restrictions Continue Famotidine 40 mg QD Follow up with GI as scheduled for continuing surveillance (10) Thoracic spondylosis: Code(s): M47.814 - Spondylosis without myelopathy or radiculopathy, thoracic region Category: Medical Plan: MRI of the thoracic spine done a couple of years ago revealed mild thoracic kyphosis with slight lower thoracic dextrocurvature and multilevel DDD and spondylosis, with multilevel disc herniations and disc osteophyte complexes without spinal cord impingement or spinal canal stenosis Reinforced activity and weight-lifting restrictions Patient states that physical therapy has helped somewhat in the past and will refer her again to PT as needed (11) Bilateral primary osteoarthritis of knee: Code(s): M17.0 - Bilateral primary osteoarthritis of knee Category: Medical Plan: X-rays of the knees done in June 2023 revealed (+) mild to moderate OA She [place] [facility] [place] a couple of months ago and was advised of options, which include cortisone injections and PT when needed Since she is currently also pursuing weight management, she has been advised to concentrate on this first as losing weight can also help alleviate a lot of her knee symptoms (12) Right wrist fracture: Code(s): S62.101A - Fracture of unspecified carpal bone, right wrist, initial encounter for closed fracture Category: Medical Qualifiers: Encounter type: sequela Fracture type: closed Qualified Code(s): S62.101S - Fracture of unspecified carpal bone, right wrist, sequela Plan: Resolved - she reportedly fell and sustained a distal right radial fracture back in October 2023 She went to the ER at [facility] after her fall and was seen by [facility] and eventually had a cast placed on her right forearm/wrist Follow up with [facility] as scheduled or as needed (13) Elevated TSH: Code(s): R79.89 - Other specified abnormal findings of blood chemistry Category: Medical Plan: Her TSH was still slightly elevated but free T4 level remained normal when they were last checked a few months ago Patient remains clinically euthyroid Will continue to monitor her TFTs regularly (14) Urinary incontinence: Code(s): R32 - Unspecified urinary incontinence Category: Medical Qualifiers: Urinary Incontinence type: unspecified incontinence Qualified Code(s): R32 - Unspecified urinary incontinence Plan: Follow up with urology as scheduled (15) Obesity (BMI 30-39.9): Code(s): E66.9 - Obesity, unspecified Category: Medical Plan: Reinforced diet/exercise as tolerated/lose weight She was referred to weight management and is now following up with them regularly She is currently on Zepbound and she has been advised to continue on this weekly - is currently on the 2.5 mg dose Plan Follow-up in 4 months Orders: Orders Complete Blood Count Auto Diff 4 Months D64.9 - Anemia, unspecified, N05.1 - 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
== END 2024-06-22 16:24 | disposition home or self-care (01) ==
LOC: HO.HMCH 15:29
PROVIDERS: PCP Internal Medicine; Visit Provider Internal Medicine
DX: Z00.00 Encounter for general adult medical examination without abnormal findings (principal); I12.9 Hypertensive chronic kidney disease with stage 1 through stage 4 chronic kidney disease, or unspecified chronic kidney disease; N18.32 Chronic kidney disease, stage 3b; R60.0 Localized edema; G43.909 Migraine, unspecified, not intractable, without status migrainosus; J45.40 Moderate persistent asthma, uncomplicated; G47.33 Obstructive sleep apnea (adult) (pediatric); K59.04 Chronic idiopathic constipation; K22.70 Barrett's esophagus without dysplasia; M47.814 Spondylosis without myelopathy or radiculopathy, thoracic region; M17.0 Bilateral primary osteoarthritis of knee; S62.101S Fracture of unspecified carpal bone, right wrist, sequela

== ENCOUNTER → 2024-06-22 15:28 | Outpatient (BNVA) | payer OTHER, SELFPAY | PROVIDERS: PCP Internal Medicine; Visit Provider Internal Medicine | DX: Z00.00 Encounter for general adult medical examination without abnormal findings (principal); I12.9 Hypertensive chronic kidney disease with stage 1 through stage 4 chronic kidney disease, or unspecified chronic kidney disease; N18.32 Chronic kidney disease, stage 3b; G43.909 Migraine, unspecified, not intractable, without status migrainosus; J45.40 Moderate persistent asthma, uncomplicated; G47.33 Obstructive sleep apnea (adult) (pediatric); K59.04 Chronic idiopathic constipation; K22.70 Barrett's esophagus without dysplasia; M47.814 Spondylosis without myelopathy or radiculopathy, thoracic region; M17.0 Bilateral primary osteoarthritis of knee; R79.89 Other specified abnormal findings of blood chemistry; R32 Unspecified urinary incontinence; S62.101S Fracture of unspecified carpal bone, right wrist, sequela | CPT/HCPCS: 96127; 99396 ==

== ENCOUNTER 2024-09-02 10:49 | Outpatient (REF) | payer OTHER, SELFPAY ==
--- OUTSIDE RECORDS SUMMARY | 2024-09-02 11:44 | XMS_ITS | Encounter Summary ---
Author Organization [facility] Address [address] [place] [address] Phone Care Team Providers Care Kaiako Kura [place] Name Role Phone Daryn Duarte MD Primary Care Provider [phone] Encounter Details Date Type Department Care Team (Late st Contact Info) Description 11/19/2021 Telephone [facility] [address] [place] [id number] Mati Durbin MD Social History Tobacco Use [...] your suggestion. Please advise Thank you CB# [phone] Thank you documented in this encounter Plan of Treatment Not on file documented as of this encounter Visit Diagnoses Not on filedocumented in this encounter Care Teams Kaiako Kura [place] Relationship Specialty Start Date End Date Daryn Duarte MD [address] [place] [address] [address] [place] [address] PCP - General 04/09/20 documented as of this encounter
[2024-09-02 19:02] LABS: Anion Gap 9 (12-20); Blood Urea Nitrogen 44 mg/dL (9-16); Calcium 9.9 mg/dL (8.4-10.2); Carbon Dioxide 29 mmol/L (22-29); Chloride 108 mmol/L (96-108); Estimated Glomerular Filt Rate 23; Glucose Random 86 mg/dL (60-115); Potassium 5.2 mmol/L (3.3-5.1); Sodium 141 mmol/L (135-145)
== END 2024-09-02 10:50 | disposition home or self-care (01) ==
LOC: HO.HKASLDS 10:49
PROVIDERS: Visit Provider Internal Medicine Hypertension Specialist
DX: N18.32 Chronic kidney disease, stage 3b (principal)
CPT/HCPCS: 36415; 80048

== ENCOUNTER 2024-09-07 11:10 | Outpatient (AMB) | payer OTHER, SELFPAY ==
[2024-09-07 11:12] VITALS: BP 140/92; PULSE 49; O2SAT 98; BMI 35.5
--- NOTE | 2024-09-07 11:12 | HO.NEPHOV ---
Vital Signs 09/07/24 11:12 Height 5 ft 1 in Weight 188 lb BMI 35.5 BP 140/92 H Blood Pressure Location Lt brachial Position Sitting Pulse 49 L Pulse Source Pulse Oximeter Pulse Oximetry (%) 98 Oxygen Delivery Method Room Air Intake Visit Reasons: 4 mo follow up/ Conf Physician Office Nurse Required: No Accompanied by: Self / Same As Patient Allergies diphenhydramine [From Benadryl] Allergy (Severe, Verified 09/07/24 11:13) Angioedema hydromorphone [From Dilaudid] Allergy (Intermediate, Verified 09/07/24 11:13) Increased BP FRANK Inhibitors [FRANK INHIBITORS] Allergy (Unknown, Verified 09/07/24 11:13) PER H&P codeine Allergy (Unknown, Verified 09/07/24 11:13) Rash meperidine Allergy (Unknown, Verified 09/07/24 11:13) Rash morphine Allergy (Unknown, Verified 09/07/24 11:13) RASH, DIFF BREATHING,CHEST PRESSURE, throat swelling TAPE,PLASTIC Allergy (Unknown, Uncoded 06/22/24 16:16) Rash Medication List - Last Reconciled 09/07/24 by Mati Durbin MD [ADULT PULL UPS (medium) As directed - #60 / month (2 pull ups/day) with 12 refills] albuterol sulfate 90 mcg/actuation 2 puffs PO Q4H PRN amitriptyline 10 mg PO BEDTIME amlodipine 10 mg PO DAILY [BEDSIDE COMMODE As directed] [bladder pads As directed - #90/month (3 pads / day), with 12 refills] budesonide-formoterol 160-4.5 mcg/actuation 2 inhalations inhalation BID cholecalciferol (vitamin D3) 25 mcg PO DAILY [CPAP device As directed] dapagliflozin propanediol (Farxiga) 10 mg PO DAILY 90 days diclofenac sodium 1% (Arthritis Pain (diclofenac)) 2 grams topical QID PRN ferrous sulfate 325 mg PO TID [foot pedal As directed] furosemide 20 mg PO DAILY [incontinence wipes As directed] lansoprazole 30 mg PO DAILY linaclotide (Linzess) 145 mcg PO QAM losartan 100 mg PO DAILY magnesium oxide 400 mg PO DAILY nystatin 1 appl topical BID PRN rizatriptan 10 mg PO Q2-4H PRN sennosides (Savanna-dean) 17.2 mg (2 x 8.6 mg) PO BEDTIME simethicone (Gas Relief Extra Strength) 125 mg PO QID PRN tirzepatide (weight loss) (Zepbound) 5 mg subcut QWEEK tizanidine 2 mg PO BID PRN topiramate 100 mg PO BID trospium ER 60 mg PO DAILY vibegron (Gemtesa) mg PO ONCE HPI Comments Details: Middle-aged woman with history of obesity and hypertension with proteinuria and CKD. She has biopsy-proven FSGS. Biopsy was done more than 15 years ago. Serum creatinine fluctuates between 1.5 minutes 1.8 mg/dL. Recently she was started on Farxiga by another reception centre manager. She continues to experience knee pain. She also has history of constipation for which she is on Linzess. Today she has no shortness of breath. No nausea vomiting. No edema. No urinary symptoms. Recently she underwent ultrasound of the neck which showed multiple lymph nodes. Still with joint pains Cr is up to 1.8 and 2.1 gm proteinuria She underwent a repeat kidney biopsy. Official results are still pending. I spoke to the pathologist and she did have FSGS and electron microscopy is still pending. 02/10/24 ;Overall doing OK ;NO change in weight ;Uses CPAP 09/07/24 59-year-old female presenting with chronic kidney disease management due to 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. She reports persistent constipation, worsened by exercise and dietary changes. Constipation has been present for a prolonged period despite using laxatives and modifying her diet. The patient's chronic kidney disease has shown a progressive decline in glomerular filtration rate from 39% to 23% over two years. She continues to take losartan and Farxiga, . The patient's anemia necessitates iron supplementation thrice daily, but she reported reducing this to twice daily due to constipation. Hospital visits reveal slightly elevated potassium levels, potentially from dietary sources. Currently on Zepbound and has lost weight 204 to 188 lbs [facility] Medical History (Updated 09/07/24 @ 11:34 by Mati Durbin MD) Edema Benign essential hypertension FSGS (focal segmental glomerulosclerosis) Family history of colonic polyps Left-sided low back pain with sciatica Mid back pain on right side Left hip pain Back pain Abdominal cramping Right lateral abdominal pain Right flank pain Pre-op examination LEANNA treated with BiPAP RLQ abdominal tenderness Right flank pain Left elbow pain Left shoulder pain Urinary incontinence Breast calcification, right Chronic renal insufficiency Asthma Migraine Normal colonoscopy (~12/25/16) Obstructive sleep apnea Diverticulitis Vitamin D deficiency Hypertension Surgical History History of biopsy History of facial surgery History of carpal tunnel repair History of nasal surgery History of ankle surgery (~2012) History of cryosurgery History of pubovaginal sling Hx of hernia repair History of bilateral tubal ligation Hx laparoscopic cholecystectomy (~2001) History of esophagogastroduodenoscopy Hx of colonoscopy Family History Mother High blood pressure Diabetes Arthritis Father Diabetes Kidney disease Heart disease Brother Diabetes Maternal Aunt Cancer of breast Brother Colon cancer, Onset Age: 57 Maternal Grandmother Cancer of breast Social History Household Members: None Housing: Apartment Alcohol intake: current Alcohol intake frequency: a few times a month Alcohol type: wine and hard liquor Patient Tobacco Use Status: Former Tobacco user Tobacco use type: Cigarette Years Smoked: 7 e-Cigarette/Vaping Use: Never Used Second Hand Smoke Exposure: No service: No Current occupational status: disabled Current occupational exposures/hazards: No Cognitive needs: No Hearing needs: No Vision needs: Yes Female Reproductive History Menstrual Age of Menarche: 13 Physical Exam Vital Signs: Last Vital Signs Pulse 49 L 09/07/24 11:12 BP 140/92 H 09/07/24 11:12 Pulse Ox 98 09/07/24 11:12 Oxygen Delivery Method Room Air 09/07/24 11:12 BMI result Body Mass Index 35.5 Const General: comfortable Nutritional Appearance: well nourished Orientation/consciousness: patient oriented x3 HEENT Head: No normal to inspection Mouth: moist mucous membranes Neck Neck: Yes supple and Yes no JVD Resp Auscultation: clear to auscultation bilaterally and no rales Cardio Jugular venous distension: no JVD Palpation: no palpable S3 and no palpable S4 Heart sounds: no rubs GI Palpation (GI): Soft to palpation and nontender Percussion: No Fluid wave present General: Yes no CVA tenderness Back/Spine/Pelvis Back: no CVA tenderness Skin General skin exam: no rashes or lesions noted Neuro General: patient oriented x3 Extrem General: Yes no pedal edema and No clubbing Results Reviewed Nephrology Results: Sodium 141 mmol/L (135-145) 09/02/24 Potassium 5.2 mmol/L (3.3-5.1) H 09/02/24 Chloride 108 mmol/L (96-108) 09/02/24 Carbon Dioxide 29 mmol/L (22-29) 09/02/24 BUN 44 mg/dL (9-16) H 09/02/24 Creatinine 2.22 mg/dL (0.5-1.4) H 09/02/24 Calcium 9.9 mg/dL (8.4-10.2) 09/02/24 Urine Protein 300 (3+) mg/dL (Neg-Trace) H 05/12/24 Urine Creatinine 63.46 mg/dL 05/12/24 Assessment & Plan Assessment & Plan (1) CKD (chronic kidney disease) stage 3, GFR 30-59 ml/min: Comment: 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, with proteinuria Code(s): N18.30 - Chronic kidney disease, stage 3 unspecified Category: Medical Qualifiers: Chronic kidney disease stage 3 subtype: stage 3b (GFR 30-44) Qualified Code(s): N18.32 - Chronic kidney disease, stage 3b Plan: 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 Creatinine fluctuates has gradually increased 1.8 - Remains unchanged Goal slow the progression of kidney disease. Maintain losartan for renal protection She is non nephrotic range proteinuria. Continue to avoid nephrotoxic agents including NSAIDs Repeat kidney biopsy revealed FSGS. Hyperfilteration / secondary FSGS due to obesity She has non nephrotic range proteinuria Urine Pro: Cr is 2.53 Unable to add prednisone due to significant obesity. Started Tacrolimus 1 mg BID ( 09/07/24) She needs weight loss. Continue with Zepbound We will maximize angiotensin receptor blockade. -Keep losartan 100 mg. Continue with Farxiga. Discussed importance of weight loss. She should stay on a low-sodium diet (2) Hypertension: Code(s): I10 - Essential (primary) hypertension Category: Medical Plan: Blood pressure is better controlled Elevated today since she did not take her medications Continue with losartan (3) Obesity (BMI 30-39.9): Code(s): E66.9 - Obesity, unspecified Category: Medical Plan: On Zepbound The meantime encouraged her to increase physical activity and decreasing calorie intake Orders: Orders Basic Metabolic Panel 6 Weeks N05.1 - Unspecified nephritic syndrome with focal and segmental glomerular lesions Complete Blood Count no Diff 6 Weeks N05.1 - Unspecified nephritic syndrome with focal and segmental glomerular lesions Total Protein Urine Random 6 Weeks N05.1 - Unspecified nephritic syndrome with focal and segmental glomerular lesions Creatinine Urine 6 Weeks N05.1 - Unspecified nephritic syndrome with focal and segmental glomerular lesions Medications: New tacrolimus 1 mg PO Q12H 60 caps 1RF Coding Level of Care Code Est Pt Level 4 (84150) Diagnoses Stage 3b chronic kidney disease N18.32 Chronic kidney disease stage 3 subtype: stage 3b (GFR 30-44) Hypertension I10 Obesity (BMI 30-39.9) E66.9
--- OUTSIDE RECORDS SUMMARY | 2024-09-07 12:48 | XMS_ITS | Encounter Summary ---
Author Organization [facility] Address [address] [place] [address] Phone Care Team Providers Care Loom Mechanic Name Role Phone Daryn Duarte MD Primary Care Provider [phone] Encounter Details Date Type Department Care Team (Late st Contact Info) Description 11/19/2021 Telephone [facility] [address] [place] [phone] Mati Durbin MD Social History Tobacco Use [...] your suggestion. Please advise Thank you CB# [phone] Thank you documented in this encounter Plan of Treatment Not on file documented as of this encounter Visit Diagnoses Not on filedocumented in this encounter Care Teams Loom Mechanic Relationship Specialty Start Date End Date Daryn Duarte MD [address] [place] [address] [address] [place] [address] PCP - General 04/09/20 documented as of this encounter
== END 2024-09-07 11:33 | disposition home or self-care (01) ==
LOC: HO.HKAS 11:11
PROVIDERS: PCP Internal Medicine; Visit Provider Internal Medicine Hypertension Specialist
DX: N18.32 Chronic kidney disease, stage 3b (principal); I10 Essential (primary) hypertension; E66.9 Obesity, unspecified
CPT/HCPCS: 99214

== ENCOUNTER → 2024-09-07 11:10 | Outpatient (BNVA) | payer OTHER, SELFPAY | PROVIDERS: PCP Internal Medicine; Visit Provider Internal Medicine Hypertension Specialist | DX: N18.32 Chronic kidney disease, stage 3b (principal); I10 Essential (primary) hypertension; E66.9 Obesity, unspecified | CPT/HCPCS: 99212 ==

== ENCOUNTER 2024-11-07 12:28 | Outpatient (AMB) | payer OTHER, SELFPAY ==
--- OUTSIDE RECORDS SUMMARY | 2024-11-07 12:35 | XMS_ITS | Clinical Summary ---
Author Organization [facility] Address [address] [place] [id number] Phone Care Team Providers Care Verification Lead Name Role Phone Daryn Duarte MD Primary Care Provider [phone] Allergies Active Allergy Reactions Criticality Noted Date Comments Hydromorphone 10/25/2019 Morphine 10/25/2019 Medications albuterol 90 mcg/actuation inhaler Inhale 2 puffs into the lungs every 6 (six) hours as needed for wheezing. Active amLODIPine (NORVASC) 2.5 MG tablet Take 2.5 mg by mouth daily. Active budesonide-form oterol (SYMBICORT) 160-4.5 mcg/actuation inhaler Inhale 2 puffs into the lungs 2 (two) times a day. Active b complex vitamins capsule Take 1 capsule by mouth daily. Active furosemide (LASIX) 40 MG tablet Take 40 mg by mouth. Active linaclotide (LINZESS ORAL) Take 72 mcg by mouth. Active losartan (COZAAR) 50 MG tablet Take 50 mg by mouth daily. Active SUMAtriptan (IMITREX) 100 MG tablet Active topiramate (TOPAMAX) 50 MG tablet Take 50 mg by mouth. Active Social History Tobacco Use Types Packs/Day Years Used Date Smoking Tobacco: Former Cigarettes 1.5 12 2 - 2014 Smokeless Tobacco: Never Alcohol Use Standard Drinks/Week Comments Yes 2 (1 standard drink = 0.6 oz pur e alcohol) Education Answer Date Recorded Are you interested in more education? Not on kaity e 07/25/2022 Are you concerned about learning? Not on file 07/25/2022 No 07/25/2022 No 07/25/2022 Digital Access Answer Date Recorded No 08/26/2022 No 08/26/2022 Reliable internet access at home? Not on file 08/26/2022 Device with a working camera? Not on file Comments Unknown Sex and Gender Information Value Date Recorded Sex Assigned at Not on file Legal Sex Female 12:47 PM EDT Gender Identity Not on file Sexual Orientation Not on file Last Filed Vital Signs Vital Sign Reading Time Taken Comments Blood Pressure - - Pulse - - Temperature - - Respiratory Rate - - Oxygen Saturation - - Inhaled Oxygen Concentration - - Weight 95.3 kg (210 lb) 10/25/2019 3:44 PM EDT Height 154.9 cm (5' 1 ) 10/25/2019 3:44 PM EDT Body Mass Index 39.68 10/25/2019 3:44 PM EDT Plan of Treatment Not on file Medical Devices Implanted Type Area Bar Gauger And Lubricator Tender Device Identifier Shelf Expiration Date Model / Serial / Lot Clip Clip Right: Breast Mesh Mesh Insurance MEDICARE REPLACEMENT [employer] [id number] MEDICARE REPLACEMENT MEDICARE REPLACEMENT MEDICARE REPLACEMENT MEDICARE REPLACEMENT MEDICARE REPLACEMENT MEDICARE REPLACEMENT [facility] ONE CARE MEDICARE REPLACEMENT [employer] [id number] Care Teams Verification Lead Relationship Specialty Start Date End Date Daryn Duarte MD [address] [place] [address] [place] [address] PCP - General Internal Medicine 10/20/19 Additional Source Comments The information contained in this document represents components of the legal health record. It is not the complete legal health record.[facility]
--- OUTSIDE RECORDS SUMMARY | 2024-11-07 12:35 | XMS_ITS | Encounter Summary ---
Author Organization [facility] Address [address] [place] [address] Phone Care Team Providers Care Groundskeeping Maintenance Name Role Phone Daryn Duarte MD Primary Care Provider [phone]- [phone] Encounter Details Date Type Department Care Team (Late st Contact Info) Description 11/19/2021 Telephone [facility] [address] [place] [phone] Mati Durbin MD Social History Tobacco Use [...] your suggestion. Please advise Thank you CB# [phone] Thank you documented in this encounter Plan of Treatment Not on file documented as of this encounter Visit Diagnoses Not on filedocumented in this encounter Care Teams Groundskeeping Maintenance Relationship Specialty Start Date End Date Daryn Duarte MD [address] [place] [address] [address] [place] [address] PCP - General 04/09/20 documented as of this encounter
--- OUTSIDE RECORDS SUMMARY | 2024-11-07 12:35 | XMS_ITS | Encounter Summary ---
Author Organization [facility] Address [address] [place] [address] Care Team Providers Care Insurance Risk Surveyor Name Role Phone Daryn Duarte MD Primary Care Provider [phone] Reason for Visit * Reason Onset Date Comments Med Refill 10/18/2024 Zepbound Encounter Details Date Type Department Care Team (Late st Contact Info) Description 10/18/2024 Telephone Bariatric Surgery - [place] [address] [phone] Tavon Galdamez MD [address] [address] Med Refill (Zepbound) Social History Tobacco Use Types Packs/Day Years Used Date Smoking Tobacco: Never Assessed Comments Unknown Sex and Gender Information Value Date Recorded Sex Assigned at Female 05/22/2022 2:55 AM EST Legal Sex Female 5:03 AM EST Gender Identity Female 05/22/2022 2:55 AM EST Sexual Orientation Not on file documented as of this encounter Progress Notes * Gris Lua - 10/18/2024 11:13 AM EDT Patient did well on Zepbound 7.5 mgs and would like a refill with titration. If appropriate, please send script for Zepbound 10 mgs to their pharmacy. The patient does have a follow up in 01/03/2025 documented in this encounter Plan of Treatment Upcoming Encounters Date Type Department Care Team (Late st Contact Info) Description 01/03/2025 8:30 AM EDT Nutrition Bariatric Surgery - [address] [phone] Tammy Sands, SHIRA [address] [phone] 02/21/2025 8:00 AM EST Office Visit Bariatric Surgery - [address] [phone] Tavon Galdamez MD [address] [address] documented as of this encounter Visit Diagnoses Not on filedocumented in this encounter Care Teams Insurance Risk Surveyor Relationship Specialty Start Date End Date Daryn Duarte MD [address] [place] [address] PCP - General Internal Medicine 05/21/17 documented as of this encounter
[2024-11-07 12:45] VITALS: BP 142/100; PULSE 55; O2SAT 97
--- NOTE | 2024-11-07 12:45 | A.OFFPC_ITS ---
Vital Signs 11/07/24 12:45 Height 5 ft 1 in BMI Reason not done Patient refused/unable BP 142/100 H Blood Pressure Location Lt brachial Position Sitting Pulse 55 Pulse Source Pulse Oximeter Pulse Oximetry (%) 97 Oxygen Delivery Method Room Air Intake Visit Reasons: CKD stage 3b, FSGS, HTN Tub Mender Required: No Accompanied by: Self / Same As Patient Allergies diphenhydramine (From Benadryl) Allergy (Severe, Verified 11/07/24 13:11) Angioedema hydromorphone (From Dilaudid) Allergy (Intermediate, Verified 11/07/24 13:11) Increased BP FRANK Inhibitors (FRANK INHIBITORS) Allergy (Unknown, Verified 11/07/24 13:11) PER H&P codeine Allergy (Unknown, Verified 11/07/24 13:11) Rash meperidine Allergy (Unknown, Verified 11/07/24 13:11) Rash morphine Allergy (Unknown, Verified 11/07/24 13:11) RASH, DIFF BREATHING,CHEST PRESSURE, throat swelling TAPE,PLASTIC Allergy (Unknown, Uncoded 11/07/24 13:11) Rash Medication List - Last Reconciled 11/07/24 by Daryn Duarte MD [ADULT PULL UPS (medium) As directed - #60 / month (2 pull ups/day) with 12 refills] albuterol sulfate 90 mcg/actuation 2 puffs PO Q4H PRN amitriptyline 10 mg PO BEDTIME amlodipine 10 mg PO DAILY [BEDSIDE COMMODE As directed] [bladder pads As directed - #90/month (3 pads / day), with 12 refills] budesonide-formoterol 160-4.5 mcg/actuation 2 inhalations inhalation BID cholecalciferol (vitamin D3) 25 mcg PO DAILY [CPAP device As directed] dapagliflozin propanediol (Farxiga) 10 mg PO DAILY 90 days diclofenac sodium 1% (Arthritis Pain (diclofenac)) 2 grams topical QID PRN ferrous sulfate 325 mg PO TID [foot pedal As directed] furosemide 20 mg PO DAILY [incontinence wipes As directed] lansoprazole 30 mg PO DAILY linaclotide (Linzess) 145 mcg PO QAM losartan 100 mg PO DAILY magnesium oxide 400 mg PO DAILY nystatin 1 appl topical BID PRN rizatriptan 10 mg PO Q2-4H PRN sennosides (Savanna-dean) 17.2 mg (2 x 8.6 mg) PO BEDTIME simethicone (Gas Relief Extra Strength) 125 mg PO QID PRN tacrolimus 1 mg PO Q12H tirzepatide (weight loss) (Zepbound) 5 mg subcut QWEEK tizanidine 2 mg PO BID PRN topiramate 100 mg PO BID trospium ER 60 mg PO DAILY vibegron (Gemtesa) mg PO ONCE Tobacco use date assessed: 11/07/24 Dental Screening Dental Screen Date: 11/07/24 Did you have a dental visit in the last 12 months?: No Did you have a dental problem in the last 6 months where you did not have access to dental care?: No Was dental information given to patient?: Patient has dentist HPI CKD stage 3b, FSGS, HTN HPI Details Patient comes in today for her follow-up visit States that she has been experiencing increasing pain over and around her left ankle for the past 5 days Reports also (+) painon her left foot as well as over her left calf muscles and states that she can hardly put any weight on her left ankle and foot at present due to the increased pain States that she does not recall spraining her ankle or sustaining any injury recently She denies any fever, headaches or dizziness Denies any exertional chest pains or increased shortness of breath lately No nausea/vomiting, no abdominal pain No change in bowel habits noted She was not able to get her follow-up labs done prior to her appointment today [facility] Medical History (Updated 11/07/24 @ 22:03 by Daryn Duarte MD) Edema Benign essential hypertension FSGS (focal segmental glomerulosclerosis) Family history of colonic polyps Left-sided low back pain with sciatica Mid back pain on right side Left hip pain Back pain Abdominal cramping Right lateral abdominal pain Right flank pain Pre-op examination LEANNA treated with BiPAP RLQ abdominal tenderness Right flank pain Left elbow pain Left shoulder pain Urinary incontinence Breast calcification, right Chronic renal insufficiency Asthma Migraine Normal colonoscopy (~12/25/16) Obstructive sleep apnea Diverticulitis Vitamin D deficiency Hypertension Surgical History History of biopsy History of facial surgery History of carpal tunnel repair History of nasal surgery History of ankle surgery (~2012) History of cryosurgery History of pubovaginal sling Hx of hernia repair History of bilateral tubal ligation Hx laparoscopic cholecystectomy (~2001) History of esophagogastroduodenoscopy Hx of colonoscopy Family History Mother High blood pressure Diabetes Arthritis Father Diabetes Kidney disease Heart disease Brother Diabetes Maternal Aunt Cancer of breast Brother Colon cancer, Onset Age: 57 Maternal Grandmother Cancer of breast Social History Household Members: None Housing: Apartment Alcohol intake: current Alcohol intake frequency: a few times a month Alcohol type: wine and hard liquor Patient Tobacco Use Status: Former Tobacco user Tobacco use type: Cigarette Years Smoked: 7 e-Cigarette/Vaping Use: Never Used Second Hand Smoke Exposure: No service: No Current occupational status: disabled Current occupational exposures/hazards: No Cognitive needs: No Hearing needs: No Vision needs: Yes Female Reproductive History Menstrual Age of Menarche: 13 Questionnaire PHQ-9 Over the last 2 weeks, how often have you been bothered by any of the following problems? 1. Little interest or pleasure in doing things: more than half the days 2. Feeling down, depressed, or hopeless: several days 3. Trouble falling or staying asleep, or sleeping too much: more than half the days 4. Feeling tired or having little energy: more than half the days 5. Poor appetite or overeating: not at all 6. Feeling bad about yourself - or that you are a failure or have let yourself or your family down: not at all 7. Trouble concentrating on things, such as reading the newspaper or watching television: not at all 8. Moving or speaking so slowly that other people could have noticed. Or the opposite - being so fidgety or restless that you have been moving around a lot more than usual: not at all 9. Thoughts that you would be better off or of hurting yourself in some way: not at all Total score: 7 Depression Screening Interpretation: Positive Depression Screening Follow-up: Existing condition and In treatment Depression Screening Done: Yes 34322 - PHQ-9 Billing: Yes Source: Developed by Drs. Loi Fan, Lucia B.WTrevor Rodriguez and colleagues, with an educational dion from [employer]. Thrive Questionnaire Date Thrive assessed: 11/07/24 I am a: Patient What is your living situation today?: I have a steady place to live Within the past 12 months, did the food you bought not last and you didn't have the money to get more?: I choose not to answer this question Within the past 12 months, did you worry whether your food would run out before you got money to buy more?: I choose not to answer this question Do you have trouble paying for medicines?: No Do you have trouble getting transportation to medical appointments?: No Do you have trouble paying your heating and electricity bill?: Yes Do you have trouble taking care of your child, family member or friend?: No Do you have trouble with day-to-day activities such as bathing, preparing meals, shopping, managing finances, etc.?: Yes Are you currently unemployed and looking for a job?: I choose not to answer this question Are you interested in more education?: Yes Currently or been in a relationship where the following occur: I choose not to answer THRIVE Score: 1 AUDIT C Alcohol Use Questionnaire (AUDIT-C) 1. How often do you have a drink containing alcohol?: Monthly or less 2. How many drinks containing alcohol do you have on a typical day when you are drinking?: 1 or 2 3. How often do you have six or more drinks on one occasion?: Monthly Total Score: 3 Score Reviewed/Action Taken: Yes JACOB-7 AMB Questionnaire JACOB-7 Date JACOB - 7 assessed: 11/07/24 Feeling nervous, anxious, or on edge: 1 = Several days Not being able to stop or control worryin = Several days Worrying too much about different things: 1 = Several days Trouble relaxin = Nearly every day Being so restless that it is hard to sit still: 1 = Several days Becoming easily annoyed or irritable: 0 = Not at all Feeling afraid as if something awful might happen: 1 = Several days Total JACOB-7 score (0-4 normal; 5-9 mild; 10-14 moderate; 15-21 severe): 8 Source: Developed by Drs. Loi Fan, Trevor Valles and colleagues, with an educational dion from [employer]. Review of Systems Const Denies chills, Reports fatigue, Denies fever(s) and Denies headache(s) ENT Denies dysphagia, Denies dizziness, Denies otalgia, Denies headache(s), Denies neck pain, Denies odynophagia and Denies sore throat Card Denies chest pain, Denies rapid heart rate, Denies irregular heart rhythm, Denies palpitations and Denies dyspnea Resp Denies chest congestion, Denies cough, Denies dyspnea and Denies wheezing GI Denies abdominal pain, Denies constipation, Denies dysphagia, Denies heartburn, Denies diarrhea, Denies nausea, Denies odynophagia and Denies vomiting Denies difficulty voiding, Denies nocturia, Denies dysuria and Denies urinary urgency Musc Reports back pain (more on the left side), Reports arthralgias (increased pain in both knees; right wrist; increased pain in L ankle), Denies joint swelling, Reports muscle cramps (in both legs, with increased activity or walking), Denies neck pain and Reports radiating pain into limb (down her left leg) Skin/Breast Denies rash Neuro Denies dizziness, Denies headache(s) and Denies paresthesias Psych Denies anxiety and Denies depression Endo Reports fatigue and Denies palpitations Leland/Lymph Denies easy bruising Aller/Immun Denies wheezing Physical exam (Primary Care) Vital Signs: Last Vital Signs Pulse 55 11/07/24 12:45 BP 142/100 H 11/07/24 12:45 Pulse Ox 97 11/07/24 12:45 Oxygen Delivery Method Room Air 11/07/24 12:45 Tobacco/Smoking Status: Tobacco use Status Tobacco use date assessed 11/07/24 11/07/24 12:53 Patient Tobacco Use Status Former Tobacco user 11/07/24 12:53 Tobacco use type Cigarette 11/07/24 12:53 e-Cigarette/Vaping Use Never Used 11/07/24 12:53 PHQ-9: PHQ-9 Score PHQ-9: Total score 7 11/07/24 13:17 Depression Screening Interpretation: Positive Depression Screening Follow-up: Existing condition and In treatment Thrive Assessment: Date of Thrive Assessment Date Thrive assessed 11/07/24 11/07/24 12:53 Currently or been in a relationship where the following occur: I choose not to answer Const General: no acute distress and alert HENMT Ears: TM's normal bilaterally and EAC's normal Throat: Yes posterior oropharynx normal and Yes tonsils normal (no TP congestion) Neck Neck: Yes supple and No lymphadenopathy Thyroid: Thyroid normal Resp Auscultation: clear to auscultation bilaterally, no rales and no wheezes Cardio Rate: regular rate Rhythm: regular rhythm Heart sounds: no murmurs GI Palpation (GI): Soft to palpation and nontender Auscultation: normal bowel sounds General: Yes no CVA tenderness Back/Spine/Pelvis Back: no CVA tenderness Thoracic/Lumbar Spine: thoracic spinal tenderness (over the lower half of the thoracic spine) and lumbar spinal tenderness Skin Rashes: no rashes Extrem General: No clubbing, No cyanosis and Yes pedal edema (trace edema, bilateral) Right lower extremity: knee Details: tenderness Left lower extremity: knee Details: tenderness and ankle Details: tenderness Results Reviewed Results Reviewed: Laboratory Tests 05/12/24 09/02/24 10:56 10:51 Sodium 141 Potassium 5.2 H Creatinine 2.22 H Estimated GFR 23 Random Glucose 86 Calcium 9.9 AST 18 ALT 12 Coding Level of Care Code Est Pt Level 4 (74869) Diagnoses Acute left ankle pain M25.572 Chronicity: acute Benign essential hypertension I10 Stage 3b chronic kidney disease N18.32 Chronic kidney disease stage 3 subtype: stage 3b (GFR 30-44) Localized edema R60.0 Edema type: localized Migraine without status migrainosus, not intractable, unspecified migraine type G43.909 Migraine type: unspecified Status migrainosus presence: without status migrainosus Intractability: not intractable Moderate persistent asthma without complication J45.40 Asthma severity: moderate Asthma persistence: persistent Asthma complication type: uncomplicated Obstructive sleep apnea G47.33 Chronic idiopathic constipation K59.04 Roach's esophagus without dysplasia K22.70 Roach's esophagus type: without dysplasia Thoracic spondylosis M47.814 Bilateral primary osteoarthritis of knee M17.0 Elevated TSH R79.89 Urinary incontinence, unspecified type R32 Urinary Incontinence type: unspecified incontinence Obesity (BMI 30-39.9) E66.9 Additional Codes PHQ-9 - 48093 - PHQ-9 Billing: Yes ([id number]) Assessment & Plan Assessment & Plan (1) Left ankle pain: Code(s): M25.572 - Pain in left ankle and joints of left foot Category: Medical Qualifiers: Chronicity: acute Qualified Code(s): M25.572 - Pain in left ankle and joints of left foot Plan: Will send patient for x-rays of the left ankle and left foot for further evaluation (2) Benign essential hypertension: Code(s): I10 - Essential (primary) hypertension Category: Medical Plan: Reinforced low sodium diet - goal is systolic BP of at least 120 to 130 mm or less, in light of her CKD Continue Losartan 100 mg QD and Amlodipine 10 mg QD (3) CKD (chronic kidney disease) stage 3, GFR 30-59 ml/min: Comment: 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, with proteinuria Code(s): N18.30 - Chronic kidney disease, stage 3 unspecified Category: Medical Qualifiers: Chronic kidney disease stage 3 subtype: stage 3b (GFR 30-44) Qualified Code(s): N18.32 - Chronic kidney disease, stage 3b Plan: Renal Bx done last year (2023) revealed (+) FSGS Reinforced complete avoidance of NSAIDs and she is encouraged again to increase her oral fluid intake She is currently on Farxiga 10 mg QD to help with her renal function Have advised her to go and get her previously ordered follow-up labs done CARL Follow up with nephrology as scheduled Will recheck her labs in 4 months for follow up (4) Edema: Code(s): R60.9 - Edema, unspecified Category: Medical Qualifiers: Edema type: localized Qualified Code(s): R60.0 - Localized edema Plan: Mostly over both lower extremities - is primarily due to lymphedema Continue Furosemide 20 mg QD PRN - dose was lowered by nephrology from 40 mg a few months ago (5) Migraine: Code(s): G43.909 - Migraine, unspecified, not intractable, without status migrainosus Category: Medical Qualifiers: Migraine type: unspecified Status migrainosus presence: without status migrainosus Intractability: not intractable Qualified Code(s): G43.909 - Migraine, unspecified, not intractable, without status migrainosus Plan: Stable on prophylactic Tx with Topiramate 50 mg Q HS Reinforced avoidance of migraine triggers Continue Rizatriptan 10 mg PRN Follow up with neurology as scheduled (6) Asthma: Code(s): J45.909 - Unspecified asthma, uncomplicated Category: Medical Qualifiers: Asthma severity: moderate Asthma persistence: persistent Asthma complication type: uncomplicated Qualified Code(s): J45.40 - Moderate persistent asthma, uncomplicated Plan: Appears controlled Continue Symbicort HFA 160-4.5 mcg 2 inhalations BID and Albuterol HFA 2 inhalations Q 6 hours PRN Follow up with [facility] as scheduled (7) Obstructive sleep apnea: Code(s): G47.33 - Obstructive sleep apnea (adult) (pediatric) Category: Medical Plan: Patient continues to use her CPAP device when sleeping at night and has been benefiting from its use Follow up with Sleep Medicine as scheduled - she sees [facility] (8) Chronic idiopathic constipation: Code(s): K59.04 - Chronic idiopathic constipation Category: Medical Plan: Patient is again encouraged on increased oral fluids and dietary fiber Continue Linzess 145 mcg QD and Senna 8.6 mg 2 tablets QD PRN Follow up with GI as scheduled (9) Roach's esophagus: Comment: LAST EGD 2018 DUE FOR REPEAT TO SURVEY 2020 OR 2021. AEB Code(s): K22.70 - Roach's esophagus without dysplasia Category: Medical Qualifiers: Roach's esophagus type: without dysplasia Qualified Code(s): K22.70 - Roach's esophagus without dysplasia Plan: Reinforced dietary restrictions Continue Famotidine 40 mg QD Follow up with GI as scheduled for continuing surveillance (10) Thoracic spondylosis: Code(s): M47.814 - Spondylosis without myelopathy or radiculopathy, thoracic region Category: Medical Plan: MRI of the thoracic spine done a couple of years ago revealed mild thoracic kyphosis with slight lower thoracic dextrocurvature and multilevel DDD and spondylosis, with multilevel disc herniations and disc osteophyte complexes without spinal cord impingement or spinal canal stenosis Reinforced activity and weight-lifting restrictions Patient states that physical therapy has helped somewhat in the past and will refer her again to PT as needed (11) Bilateral primary osteoarthritis of knee: Code(s): M17.0 - Bilateral primary osteoarthritis of knee Category: Medical Plan: X-rays of the knees done in June 2023 revealed (+) mild to moderate OA She was seen by [place]oped[place] [facility] [place] issues a couple of months ago and was advised of options, which include cortisone injections and PT when needed Since she is currently also pursuing weight management, she has been advised to concentrate on this first as losing weight can also help alleviate a lot of her knee symptoms (12) Elevated TSH: Code(s): R79.89 - Other specified abnormal findings of blood chemistry Category: Medical Plan: Her TSH was still slightly elevated but free T4 level remained normal when they were last checked a few months ago Patient remains clinically euthyroid Will continue to monitor her TFTs regularly (13) Urinary incontinence: Code(s): R32 - Unspecified urinary incontinence Category: Medical Qualifiers: Urinary Incontinence type: unspecified incontinence Qualified Code(s): R32 - Unspecified urinary incontinence Plan: Follow up with urology as scheduled (14) Obesity (BMI 30-39.9): Code(s): E66.9 - Obesity, unspecified Category: Medical Plan: Reinforced diet/exercise as tolerated/lose weight She was referred to weight management and is now following up with them regularly She is currently on Zepbound and she has been advised to continue on this weekly - is currently on 5 mg dose once a week Plan Follow up in 4 months Orders: Orders XR foot LT min 3V Today M79.672 - Pain in left foot XR ankle LT min 3V Today M25.572 - Pain in left ankle and joints of left foot, Z91.81 - History of falling Free T4 (Free Thyroxine) 4 Months R79.89 - Other specified abnormal findings of blood chemistry Thyroid Stimulating Hormone 4 Months R79.89 - Other specified abnormal findings of blood chemistry Comprehensive [place]. Panel Fast 4 Months E78.00 - Pure hypercholesterolemia, unspecified Microalbumin, Random (w Creat) 4 Months E11.9 - Type 2 diabetes mellitus without complications Vitamin B12 and Folate 4 Months E53.8 - Deficiency of other specified B group vitamins Complete Blood Count Auto Diff 4 Months D64.9 - Anemia, unspecified Lipid Panel 4 Months E78.00 - Pure hypercholesterolemia, unspecified UA CC w/rflx Micro + Cult 4 Months R30.0 - Dysuria Vitamin D 25-OH Total 4 Months E55.9 - Vitamin D deficiency, unspecified
== END 2024-11-07 13:24 | disposition home or self-care (01) ==
LOC: HO.HMCH 12:29
PROVIDERS: PCP Internal Medicine; Visit Provider Internal Medicine
DX: I12.9 Hypertensive chronic kidney disease with stage 1 through stage 4 chronic kidney disease, or unspecified chronic kidney disease (principal); N18.32 Chronic kidney disease, stage 3b; M25.572 Pain in left ankle and joints of left foot; R60.0 Localized edema; G43.909 Migraine, unspecified, not intractable, without status migrainosus; J45.40 Moderate persistent asthma, uncomplicated; G47.33 Obstructive sleep apnea (adult) (pediatric); K59.04 Chronic idiopathic constipation; K22.70 Barrett's esophagus without dysplasia; M47.814 Spondylosis without myelopathy or radiculopathy, thoracic region; M17.0 Bilateral primary osteoarthritis of knee; R79.89 Other specified abnormal findings of blood chemistry

== ENCOUNTER 2024-11-07 12:28 | Outpatient (REF) | payer OTHER, SELFPAY ==
--- NOTE | ~2024-11-07 | XR_ITS ---
EXAMINATION: XR ANKLE 3 OR MORE VIEWS LEFT, XR FOOT 3 OR MORE VIEWS LEFT HISTORY: M25.572 - Pain in left ankle and joints of left foot COMPARISON: Comparison is made with the prior examination of the left foot dated 11/09/2013. FINDINGS: Six views of the left foot and ankle are submitted. Osseous mineralization is normal. There is no fracture or dislocation. There is mild degenerative change of the talonavicular joint. There is a plantar calcaneal spur. There is lateral soft tissue swelling of the ankle. XR/XR foot LT min 3V IMPRESSION: Lateral soft tissue swelling at the ankle. Mild degenerative change of the talonavicular joint. Electronically signed by: Loi Quezada MD 11/07/2024 03:22 PM EDT
--- NOTE | ~2024-11-07 | XR_ITS ---
EXAMINATION: XR ANKLE 3 OR MORE VIEWS LEFT, XR FOOT 3 OR MORE VIEWS LEFT HISTORY: M25.572 - Pain in left ankle and joints of left foot COMPARISON: Comparison is made with the prior examination of the left foot dated 11/09/2013. FINDINGS: Six views of the left foot and ankle are submitted. Osseous mineralization is normal. There is no fracture or dislocation. There is mild degenerative change of the talonavicular joint. There is a plantar calcaneal spur. There is lateral soft tissue swelling of the ankle. XR/XR ankle LT min 3V IMPRESSION: Lateral soft tissue swelling at the ankle. Mild degenerative change of the talonavicular joint. Electronically signed by: Loi Quezada MD 11/07/2024 03:22 PM EDT
[2024-11-07 14:53] LABS: Hematocrit 41.7 % (37.0-47.0); Hemoglobin 13.5 g/dl (12.0-16.0); Mean Corpuscular HGB Conc 32.4 g/dl (31.0-35.0); Mean Corpuscular Hemoglobin 29.9 pg (27.0-33.0); Mean Corpuscular Volume 92.3 fL (80.0-98.0); NRBC Abs Auto 0.000 X10*3/uL (0.0-0.012); NRBC Pct Auto 0.0 /100WBC (0.0-0.2); Platelet Count 195 X10*3/uL (160-400); Red Blood Count 4.52 X10*6/uL (4.20-5.50); White Blood Count 8.5 X10*3/uL (4.8-10.8)
[2024-11-07 15:47] LABS: Anion Gap 14 (12-20); Blood Urea Nitrogen 35 mg/dL (9-16); Calcium 9.5 mg/dL (8.4-10.2); Carbon Dioxide 23 mmol/L (22-29); Chloride 110 mmol/L (96-108); Estimated Glomerular Filt Rate 24; Potassium 4.6 mmol/L (3.3-5.1); Sodium 142 mmol/L (135-145)
[2024-11-07 16:02] LABS: Total Protein Urine Random 144 mg/dL (<12)
== END 2024-11-07 12:29 | disposition home or self-care (01) ==
LOC: HO.LAB 12:28
PROVIDERS: Absent Provider Internal Medicine Hypertension Specialist; PCP Internal Medicine; Visit Provider Internal Medicine
DX: M79.672 Pain in left foot (principal); M25.572 Pain in left ankle and joints of left foot; I12.9 Hypertensive chronic kidney disease with stage 1 through stage 4 chronic kidney disease, or unspecified chronic kidney disease; N18.32 Chronic kidney disease, stage 3b; R60.0 Localized edema; N05.1 Unspecified nephritic syndrome with focal and segmental glomerular lesions; G43.909 Migraine, unspecified, not intractable, without status migrainosus; J45.40 Moderate persistent asthma, uncomplicated; G47.33 Obstructive sleep apnea (adult) (pediatric); K59.04 Chronic idiopathic constipation; K22.70 Barrett's esophagus without dysplasia; M47.814 Spondylosis without myelopathy or radiculopathy, thoracic region; M17.0 Bilateral primary osteoarthritis of knee; R79.89 Other specified abnormal findings of blood chemistry; R32 Unspecified urinary incontinence; E66.9 Obesity, unspecified; Z91.81 History of falling; Z79.899 Other long term (current) drug therapy
CPT/HCPCS: 36415; 73610; 73630; 80048; 82570; 84156; 85027; 96127; 99212

== ENCOUNTER → 2024-11-07 14:01 | Outpatient (BNV) | payer OTHER, SELFPAY | PROVIDERS: Absent Provider Internal Medicine Hypertension Specialist; PCP Internal Medicine; Visit Provider Radiology Diagnostic Radiology | DX: M70.972 Unspecified soft tissue disorder related to use, overuse and pressure, left ankle and foot (principal) | CPT/HCPCS: 73610; 73630 ==

== ENCOUNTER → 2024-11-07 23:59 | Outpatient (BNV) | payer OTHER, SELFPAY | PROVIDERS: PCP Internal Medicine; Visit Provider Internal Medicine | DX: F41.9 Anxiety disorder, unspecified (principal); N19 Unspecified kidney failure; I10 Essential (primary) hypertension; K59.00 Constipation, unspecified | CPT/HCPCS: G0180 ==

== ENCOUNTER 2024-11-15 11:34 | Outpatient (AMB) | payer OTHER, SELFPAY ==
--- NOTE | 2024-11-15 11:38 | A.OFFVIS_ITS ---
Vital Signs 11/15/24 11:40 Height 5 ft 1 in Weight 174 lb 2.643 oz BMI 32.9 BP 180/99 H Blood Pressure Location Lt brachial Position Sitting Pulse 47 L Intake Visit Reasons: GERD, CIC, 6 Mth f/u, r/s from 08/30/24 Intake Note: Roxie presents in the office as a 6 month follow up for CIC and GERD. CC: She states that she is feeling okay at this time. She states that linzess helps with the constipation but sometimes it doesn't work for her and was told that between the zepbound and iron that she can have constipation. Typo Machine Operator Required: No Allergies diphenhydramine (From Benadryl) Allergy (Severe, Verified 11/15/24 11:43) Angioedema hydromorphone (From Dilaudid) Allergy (Intermediate, Verified 11/15/24 11:43) Increased BP FRANK Inhibitors (FRANK INHIBITORS) Allergy (Unknown, Verified 11/15/24 11:43) PER H&P codeine Allergy (Unknown, Verified 11/15/24 11:43) Rash meperidine Allergy (Unknown, Verified 11/15/24 11:43) Rash morphine Allergy (Unknown, Verified 11/15/24 11:43) RASH, DIFF BREATHING,CHEST PRESSURE, throat swelling TAPE,PLASTIC Allergy (Unknown, Uncoded 11/15/24 11:43) Rash HPI HPI GERD, CIC, 6 Mth f/u, r/s from 08/30/24: Details: Assessment & Plan (1) GERD (gastroesophageal reflux disease): Comment: Stage 3CKD trying to get lansoprazole to accommodate this. She had a metallic side effect from famotidine/H2 medications Code(s): K21.9 - Gastro-esophageal reflux disease without esophagitis Category: Medical (2) Roach's esophagus: Comment: LAST EGD 2018 DUE FOR REPEAT TO SURVEY 2020 OR 2021. AEB Code(s): K22.70 - Roach's esophagus without dysplasia Category: Medical Qualifiers: Roach's esophagus type: without dysplasia Qualified Code(s): K22.70 - Roach's esophagus without dysplasia (3) Chronic idiopathic constipation: Code(s): K59.04 - Chronic idiopathic constipation Category: Medical (4) Thoracic spondylosis: Comment: 2022 MRI T spine DISC SPACES AND ENDPLATES: Discogenic degenerative changes are noted at multiple levels between T3-T4 and T11-T12 inclusive, with predominantly mild and moderate degrees of intervertebral disc space height loss, multilevel disc desiccation, Schmorl's nodes and mild-to -moderate degrees of anterior marginal spondylosis. There is bridging osteophytosis asymmetric to the right at T7-T8 and T8-T9 and on the right at T11-T12.2. Multilevel DDD and spondylosis, with multilevel disc herniations and disc osteophyte complexes Code(s): M47.814 - Spondylosis without myelopathy or radiculopathy, thoracic region Category: Medical Plan She continues to do well on her Linzess 145 micro g, senna, famotidine and simethicone. She has not been taking the lansoprazole consistently as she forgets to take it in the morning so I suggest that she take it at night putting it on her nightstand and she thinks this will be more feasible for her. Again she did have a spot of Barretts esophagus want to prevent this from recurring. She continues to complain of pain on her right side particularly when she is laying on that side. I really think that this has more to do with her rather severe and extensive thoracic spondylosis with bridging osteophytes to the right from T7 through T12. Return office visit in 6 months Medications: Refilled linaclotide (Linzess) 145 mcg PO QAM 30 caps 6RF K59.04 - Chronic idiopathic constipation simethicone (Gas Relief Extra Strength) 125 mg PO QID PRN 120 tabs 6RF for abdominal pain sennosides (Savanna-dean) 17.2 mg (2 x 8.6 mg) PO BEDTIME 60 tabs 6RF K59.04 - Chronic idiopathic constipation lansoprazole 30 mg PO DAILY 30 caps 6RF K21.9 - Gastro-esophageal reflux disease without esophagitis TODAY'S VISIT [facility] Medical History (Updated 11/15/24 @ 12:12 by JOSEPH Packer) Annual physical exam Edema Benign essential hypertension FSGS (focal segmental glomerulosclerosis) Family history of colonic polyps Left-sided low back pain with sciatica Mid back pain on right side Left hip pain Back pain Abdominal cramping Right lateral abdominal pain Right flank pain Pre-op examination LEANNA treated with BiPAP RLQ abdominal tenderness Right flank pain Left elbow pain Left shoulder pain Urinary incontinence Breast calcification, right Chronic renal insufficiency Asthma Migraine Normal colonoscopy (~12/25/16) Obstructive sleep apnea Diverticulitis Vitamin D deficiency Hypertension Surgical History History of surgery on wrist History of biopsy History of facial surgery History of carpal tunnel repair History of nasal surgery History of ankle surgery (~2012) History of cryosurgery History of pubovaginal sling Hx of hernia repair History of bilateral tubal ligation Hx laparoscopic cholecystectomy (~2001) History of esophagogastroduodenoscopy Hx of colonoscopy Family History Mother High blood pressure Diabetes Arthritis Father Diabetes Kidney disease Heart disease Brother Diabetes Maternal Aunt Cancer of breast Brother Colon cancer, Onset Age: 57 Maternal Grandmother Cancer of breast Social History Household Members: None Housing: Apartment Alcohol intake: current Alcohol intake frequency: a few times a month Alcohol type: wine and hard liquor Patient Tobacco Use Status: Former Tobacco user Tobacco use type: Cigarette Years Smoked: 7 e-Cigarette/Vaping Use: Never Used Second Hand Smoke Exposure: No service: No Current occupational status: disabled Current occupational exposures/hazards: No Cognitive needs: No Hearing needs: No Vision needs: Yes Female Reproductive History Menstrual Age of Menarche: 13 Review of Systems Const Denies fatigue, Denies fever(s), Denies night sweats, Denies poor appetite and Reports weight loss (intentional dieting) ENT Reports Normal hearing present, Denies dental pain, Denies dysphagia, Denies hearing loss, Denies mouth pain, Denies odynophagia, Denies throat swelling, Denies tongue swelling and Reports other (Dentition adequate) Card Reports no additional complaints Resp Reports no additional complaints and Reports wheezing GI Details: Denies abdominal pain, Denies melena, Reports bloating, Denies hematochezia, Reports constipation, Denies GI cramping, Denies dysphagia, Denies excessive flatus, Denies early satiety, Reports heartburn, Denies diarrhea, Denies nausea, Denies odynophagia, Denies vomiting and Denies hematemesis Skin/Breast Denies pruritus, Denies lesions, Denies rash and Denies jaundice Neuro Reports Normal hearing present and Denies Abnormal speech present Endo Denies fatigue Aller/Immun Reports seasonal rhinorrhea, Denies throat swelling, Denies tongue swelling and Reports wheezing Physical Exam Vital Signs: Last Vital Signs Pulse 47 L 11/15/24 11:40 BP 180/99 H 11/15/24 11:40 BMI result Body Mass Index 32.9 Const General: cooperative, no acute distress, well developed and well groomed Nutritional Appearance: well nourished and obese Orientation/consciousness: oriented to person, oriented to place and oriented to time Limitations: No language barrier HEENT Head: Yes normocephalic and Yes atraumatic Eyes General: appearance normal, both eyes and all related structures Pupils: Equal, round and reactive pupils present Neck Neck: Yes normal visual inspection and Yes no lymphadenopathy Thyroid: Thyroid normal Resp Effort & Inspection: normal respiratory effort and able to speak in complete sentences Auscultation: clear to auscultation bilaterally Cardio Rate: regular rate Rhythm: regular rhythm Heart sounds: Normal, physiologic split S2 sound present Peripheral pulses: radial pulses present and posterior tibial pulses present GI Inspection: No distended, No Abdominal panniculus present and Yes obesity Palpation (GI): Soft to palpation, nontender, no guarding, not rigid and No hepatosplenomegaly present Percussion: Yes normal to percussion Auscultation: normal bowel sounds Rectal Exam - Female: deferred Skin General skin exam: no rashes or lesions noted, turgor normal, skin not dry, no jaundice, No spider nevi and no striae Rashes: no rashes Nails: normal Neuro General: oriented to person, oriented to place and oriented to time Cranial nerves: Yes Equal, round and reactive pupils present and Yes Normal hearing present Speech: No Abnormal speech present Extrem General: Yes normal to inspection, No clubbing, No cyanosis and No edema Psych Appearance: grossly normal and well kempt Mental Status: mental status grossly normal Speech and movement: Normal speech and movement present Affect: normal affect Attitude: cooperative Thought process: Normal thought process present and not confabulating Thought content: Normal thought content present Insight: Fair insight present (Psych) Judgement: Fair judgement present (Psych) Assessment & Plan Assessment & Plan (1) GERD (gastroesophageal reflux disease): Comment: Stage 3CKD trying to get lansoprazole to accommodate this. She had a metallic side effect from famotidine/H2 medications Code(s): K21.9 - Gastro-esophageal reflux disease without esophagitis Category: Medical (2) Roach's esophagus: Comment: LAST EGD 2018 DUE FOR REPEAT TO SURVEY 2020 OR 2021. AEB Code(s): K22.70 - Roach's esophagus without dysplasia Category: Medical Qualifiers: Roach's esophagus type: without dysplasia Qualified Code(s): K22.70 - Roach's esophagus without dysplasia (3) Chronic idiopathic constipation: Code(s): K59.04 - Chronic idiopathic constipation Category: Medical (4) Abdominal bloating: Code(s): R14.0 - Abdominal distension (gaseous) Category: Medical Plan History of Present Illness - The patient is a 59-year-old female presenting with constipation and gastrointestinal concerns. - History of worsening constipation attributed to both Zepbound (a GLP-1 medication), amitriptyline, Lasix, amlodipine, tizanidine and iron supplementation. - Reports symptoms describe difficulty in bowel movements, potentially impacted by past rectocele diagnosis. - Notable weight loss is reported from using Zepbound; however, she experiences increased bloating. - Regular dietary intake includes apples and watermelon, potentially leading to bloating and constipation. She was puzzle because she thought fruits would help her move her bowels but apples tend to be a bit finding which is why they are part of the brat diet. She might try pairs, but grapefruit in the past has given her worsening acid reflux. - Allergic symptoms observed in cold air exposure from air conditioning, leading to nasal congestion and sneezing. Review of Systems - Gastrointestinal: Reports constipation, history of gastric inflammation, bloating, and weight loss. Denies current heartburn. - Musculoskeletal: Reports difficulty with defecation due to pelvic floor issues. - Allergic/Immunologic: Reports sneezing and nasal congestion linked to air conditioning. - General: Reports weight loss and increased energy levels. Patient Instructions - continue your Linzess but we are increasing it is 290 micro g, along with your lansoprazole, senna, magnesium and simethicone. - Maintain a balanced diet high in fiber, considering options like prunes or dates. - Monitor for any new symptoms, particularly changes in bowel habits, and report these. - Hydrate adequately to help manage bowel movements. - Attend follow-up appointments and schedule any interim contact if concerns arise. Return office visit in 6 weeks to evaluate the affective increasing the Linzess and consider other options as we titrate to affect her side effect. Medications: New linaclotide (Linzess) 290 mcg PO QAM 30 caps 6RF 30 days Refilled lansoprazole 30 mg PO DAILY 30 caps 6RF K21.9 - Gastro-esophageal reflux disease without esophagitis sennosides (Savanna-dean) 17.2 mg (2 x 8.6 mg) PO BEDTIME 60 tabs 6RF K59.04 - Chronic idiopathic constipation simethicone (Gas Relief Extra Strength) 125 mg PO QID PRN 120 tabs 6RF for abdominal pain magnesium oxide 400 mg PO DAILY 30 tabs 6RF Discontinued linaclotide (Linzess) Discontinued Reason: Doctor's Order 145 mcg PO QAM 30 caps 6RF K59.04 - Chronic idiopathic constipation Coding Level of Care Code Est Pt Level 3 (67399) Diagnoses GERD (gastroesophageal reflux disease) K21.9 Roach's esophagus without dysplasia K22.70 Roach's esophagus type: without dysplasia Chronic idiopathic constipation K59.04 Abdominal bloating R14.0
[2024-11-15 11:40] VITALS: BP 180/99; PULSE 47; BMI 32.9
== END 2024-11-15 12:19 | disposition home or self-care (01) ==
LOC: HO.HGI 11:35
PROVIDERS: PCP Internal Medicine; Visit Provider Nurse Practitioner
DX: K21.9 Gastro-esophageal reflux disease without esophagitis (principal); K22.70 Barrett's esophagus without dysplasia; K59.04 Chronic idiopathic constipation; R14.0 Abdominal distension (gaseous)
CPT/HCPCS: 99213

== ENCOUNTER → 2024-11-15 11:34 | Outpatient (BNVA) | payer OTHER, SELFPAY | PROVIDERS: PCP Internal Medicine; Visit Provider Nurse Practitioner | DX: K21.9 Gastro-esophageal reflux disease without esophagitis (principal); K22.70 Barrett's esophagus without dysplasia; K59.04 Chronic idiopathic constipation; M47.814 Spondylosis without myelopathy or radiculopathy, thoracic region | CPT/HCPCS: 99212 ==

== ENCOUNTER 2024-11-16 11:37 | Outpatient (AMB) | payer OTHER, SELFPAY ==
[2024-11-16 11:44] VITALS: BP 142/82; PULSE 48; O2SAT 99; BMI 33.6
--- NOTE | 2024-11-16 11:44 | HO.NEPHOV_ITS ---
Vital Signs 11/16/24 11:44 Height 5 ft 1 in Weight 178 lb BMI 33.6 BP 142/82 H Blood Pressure Location Lt brachial Position Sitting Pulse 48 L Pulse Source Pulse Oximeter Pulse Oximetry (%) 99 Oxygen Delivery Method Room Air Intake Visit Reasons: 8 weeks follow up Pin Sorter And Bagger Required: No Accompanied by: Self / Same As Patient Allergies diphenhydramine (From Benadryl) Allergy (Severe, Verified 11/16/24 11:46) Angioedema hydromorphone (From Dilaudid) Allergy (Intermediate, Verified 11/16/24 11:46) Increased BP FRANK Inhibitors (FRANK INHIBITORS) Allergy (Unknown, Verified 11/16/24 11:46) PER H&P codeine Allergy (Unknown, Verified 11/16/24 11:46) Rash meperidine Allergy (Unknown, Verified 11/16/24 11:46) Rash morphine Allergy (Unknown, Verified 11/16/24 11:46) RASH, DIFF BREATHING,CHEST PRESSURE, throat swelling TAPE,PLASTIC Allergy (Unknown, Uncoded 11/15/24 11:43) Rash Medication List - Last Reconciled 11/16/24 by Mati Durbin MD [ADULT PULL UPS (medium) As directed - #60 / month (2 pull ups/day) with 12 refills] albuterol sulfate 90 mcg/actuation 2 puffs PO Q4H PRN amitriptyline 10 mg PO BEDTIME amlodipine 10 mg PO DAILY [BEDSIDE COMMODE As directed] [bladder pads As directed - #90/month (3 pads / day), with 12 refills] budesonide-formoterol 160-4.5 mcg/actuation 2 inhalations inhalation BID [CPAP device As directed] dapagliflozin propanediol (Farxiga) 10 mg PO DAILY 90 days diclofenac sodium 1% (Arthritis Pain (diclofenac)) 2 grams topical QID PRN ferrous sulfate 325 mg PO TID [foot pedal As directed] furosemide 20 mg PO DAILY [incontinence wipes As directed] lansoprazole 30 mg PO DAILY lidocaine 5% 1 patch topical DAILY linaclotide (Linzess) 290 mcg PO QAM 30 days losartan 100 mg PO DAILY magnesium oxide 400 mg PO DAILY nystatin 1 appl topical BID PRN rizatriptan 10 mg PO Q2-4H PRN sennosides (Savanna-dean) 17.2 mg (2 x 8.6 mg) PO BEDTIME simethicone (Gas Relief Extra Strength) 125 mg PO QID PRN tacrolimus 1 mg PO Q12H tirzepatide (weight loss) (Zepbound) 7.5 mg subcut QWEEK tizanidine 2 mg PO BID PRN topiramate 100 mg PO BID vibegron (Gemtesa) mg PO ONCE HPI Comments Details: Middle-aged woman with history of obesity and hypertension with proteinuria and CKD. She has biopsy-proven FSGS. Biopsy was done more than 15 years ago. Serum creatinine fluctuates between 1.5 minutes 1.8 mg/dL. Recently she was started on Farxiga by another general merchandise manager. She continues to experience knee pain. She also has history of constipation for which she is on Linzess. Today she has no shortness of breath. No nausea vomiting. No edema. No urinary symptoms. Recently she underwent ultrasound of the neck which showed multiple lymph nodes. Still with joint pains Cr is up to 1.8 and 2.1 gm proteinuria She underwent a repeat kidney biopsy. Official results are still pending. I spoke to the pathologist and she did have FSGS and electron microscopy is still pending. 02/10/24 ;Overall doing OK ;NO change in weight ;Uses CPAP 09/07/24 59-year-old female presenting with chronic kidney disease management due to 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. She reports persistent constipation, worsened by exercise and dietary changes. Constipation has been present for a prolonged period despite using laxatives and modifying her diet. The patient's chronic kidney disease has shown a progressive decline in glomerular filtration rate from 39% to 23% over two years. She continues to take losartan and Farxiga, . The patient's anemia necessitates iron supplementation thrice daily, but she reported reducing this to twice daily due to constipation. Hospital visits reveal slightly elevated potassium levels, potentially from dietary sources. Currently on Zepbound and has lost weight 204 to 188 lbs 11/16/24 [facility] Medical History (Updated 11/15/24 @ 12:12 by JOSEPH Packer) Annual physical exam Edema Benign essential hypertension FSGS (focal segmental glomerulosclerosis) Family history of colonic polyps Left-sided low back pain with sciatica Mid back pain on right side Left hip pain Back pain Abdominal cramping Right lateral abdominal pain Right flank pain Pre-op examination LEANNA treated with BiPAP RLQ abdominal tenderness Right flank pain Left elbow pain Left shoulder pain Urinary incontinence Breast calcification, right Chronic renal insufficiency Asthma Migraine Normal colonoscopy (~12/25/16) Obstructive sleep apnea Diverticulitis Vitamin D deficiency Hypertension Surgical History History of surgery on wrist History of biopsy History of facial surgery History of carpal tunnel repair History of nasal surgery History of ankle surgery (~2012) History of cryosurgery History of pubovaginal sling Hx of hernia repair History of bilateral tubal ligation Hx laparoscopic cholecystectomy (~2001) History of esophagogastroduodenoscopy Hx of colonoscopy Family History Mother High blood pressure Diabetes Arthritis Father Diabetes Kidney disease Heart disease Brother Diabetes Maternal Aunt Cancer of breast Brother Colon cancer, Onset Age: 57 Maternal Grandmother Cancer of breast Social History Household Members: None Housing: Apartment Alcohol intake: current Alcohol intake frequency: a few times a month Alcohol type: wine and hard liquor Patient Tobacco Use Status: Former Tobacco user Tobacco use type: Cigarette Years Smoked: 7 e-Cigarette/Vaping Use: Never Used Second Hand Smoke Exposure: No service: No Current occupational status: disabled Current occupational exposures/hazards: No Cognitive needs: No Hearing needs: No Vision needs: Yes Female Reproductive History Menstrual Age of Menarche: 13 Physical Exam Vital Signs: Last Vital Signs Pulse 48 L 11/16/24 11:44 BP 142/82 H 11/16/24 11:44 Pulse Ox 99 11/16/24 11:44 Oxygen Delivery Method Room Air 11/16/24 11:44 BMI result Body Mass Index 33.6 Const General: comfortable Nutritional Appearance: well nourished Orientation/consciousness: patient oriented x3 HEENT Head: No normal to inspection Mouth: moist mucous membranes Neck Neck: Yes supple and Yes no JVD Resp Auscultation: clear to auscultation bilaterally and no rales Cardio Jugular venous distension: no JVD Palpation: no palpable S3 and no palpable S4 Heart sounds: no rubs GI Palpation (GI): Soft to palpation and nontender Percussion: No Fluid wave present General: Yes no CVA tenderness Back/Spine/Pelvis Back: no CVA tenderness Skin General skin exam: no rashes or lesions noted Neuro General: patient oriented x3 Extrem General: Yes no pedal edema and No clubbing Results Reviewed Nephrology Results: Hgb, (12.0-16.0) 13.5 g/dl 11/07/24 WBC, (4.8-10.8) 8.5 X10*3/uL 11/07/24 Plt Count, (160-400) 195 X10*3/uL 11/07/24 Sodium, (135-145) 142 mmol/L 11/07/24 Potassium, (3.3-5.1) 4.6 mmol/L 11/07/24 Chloride, (96-108) 110 mmol/L H 11/07/24 Carbon Dioxide, (22-29) 23 mmol/L 11/07/24 BUN, (9-16) 35 mg/dL H 11/07/24 Creatinine, (0.5-1.4) 2.08 mg/dL H 11/07/24 Calcium, (8.4-10.2) 9.5 mg/dL 11/07/24 Urine Creatinine 98.03 mg/dL 11/07/24 Assessment & Plan Assessment & Plan (1) CKD (chronic kidney disease) stage 3, GFR 30-59 ml/min: Comment: 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, with proteinuria Code(s): N18.30 - Chronic kidney disease, stage 3 unspecified Category: Medical Qualifiers: Chronic kidney disease stage 3 subtype: stage 3b (GFR 30-44) Qualified Code(s): N18.32 - Chronic kidney disease, stage 3b Plan: 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 Creatinine fluctuates has gradually increased 1.8 - Remains unchanged Goal slow the progression of kidney disease. Maintain losartan for renal protection She is non nephrotic range proteinuria. Continue to avoid nephrotoxic agents including NSAIDs Repeat kidney biopsy revealed FSGS. Hyperfilteration / secondary FSGS due to obesity She has non nephrotic range proteinuria Urine Pro: Cr is 2.53 Unable to add prednisone due to significant obesity. Started Tacrolimus 1 mg BID ( 09/07/24) Level ordered She needs weight loss. Continue with Zepbound We will maximize angiotensin receptor blockade. -Keep losartan 100 mg. Continue with Farxiga. Discussed importance of weight loss. She should stay on a low-sodium diet (2) Hypertension: Code(s): I10 - Essential (primary) hypertension Category: Medical Plan: Blood pressure is better controlled Elevated today since she did not take her medications Continue with losartan (3) Obesity (BMI 30-39.9): Code(s): E66.9 - Obesity, unspecified Category: Medical Plan: On Zepbound The meantime encouraged her to increase physical activity and decreasing calorie intake Orders: Orders Basic Metabolic Panel 3 Months I10 - Essential (primary) hypertension, N18.32 - Chronic kidney disease, stage 3b Creatinine Urine 3 Months I10 - Essential (primary) hypertension, N18.32 - Chronic kidney disease, stage 3b Total Protein Urine Random 3 Months I10 - Essential (primary) hypertension, N18.32 - Chronic kidney disease, stage 3b UA and rflx microscopic 3 Months I10 - Essential (primary) hypertension, N18.32 - Chronic kidney disease, stage 3b Tacrolimus Prograf 3 Months I10 - Essential (primary) hypertension, N05.1 - Unspecified nephritic syndrome with focal and segmental glomerular lesions Coding Level of Care Code Est Pt Level 4 (29753) Diagnoses Stage 3b chronic kidney disease N18.32 Chronic kidney disease stage 3 subtype: stage 3b (GFR 30-44) Hypertension I10 Obesity (BMI 30-39.9) E66.9
--- OUTSIDE RECORDS SUMMARY | 2024-11-16 12:56 | XMS_ITS | Clinical Summary ---
Author Organization [facility] Address [address] [place] [phone] Phone Care Team Providers Care Software Configuration Engineer Name Role Phone Daryn Duarte MD Primary Care Provider [phone] Allergies Active Allergy Reactions Criticality Noted Date [...] on file Medical Devices Implanted Type Area Acupuncturist Device Identifier Shelf Expiration Date Model / Serial / Lot Clip Clip Right: Breast Mesh Mesh Insurance MEDICARE REPLACEMENT [employer] [id number] MEDICARE REPLACEMENT MEDICARE REPLACEMENT MEDICARE REPLACEMENT MEDICARE REPLACEMENT MEDICARE REPLACEMENT MEDICARE REPLACEMENT [facility] ONE CARE MEDICARE REPLACEMENT [employer] HU[employer] [id number] Care Teams Software Configuration Engineer Relationship Specialty Start Date End Date Daryn Duarte MD [address] [place] [address] [place] [id number] PCP - General Internal Medicine 10/20/19 Additional Source Comments The information contained in this document represents components of the legal health record. It is not the complete legal health record.[facility]
--- OUTSIDE RECORDS SUMMARY | 2024-11-16 12:56 | XMS_ITS | Encounter Summary ---
Author Organization [facility] Address [address] [place] [address] Phone Care Team Providers Care Patient Relations Specialist Name Role Phone Daryn Duarte MD Primary Care Provider [phone] Encounter Details Date Type Department Care Team (Late st Contact Info) Description 11/19/2021 Telephone [facility] [address] [place] [phone] Mati Durbin MD Social History Tobacco Use [...] your suggestion. Please advise Thank you CB# [phone] Thank you documented in this encounter Plan of Treatment Not on file documented as of this encounter Visit Diagnoses Not on filedocumented in this encounter Care Teams Patient Relations Specialist Relationship Specialty Start Date End Date Daryn Duarte MD [address] [place] [address] [address] [place] [address] PCP - General 04/09/20 documented as of this encounter
--- OUTSIDE RECORDS SUMMARY | 2024-11-16 12:56 | XMS_ITS | Clinical Summary ---
Author Organization [facility] Address [address] [place] [address] Phone Care Team Providers Care Interlibrary Loan Services Librarian Name Role Phone Daryn Duarte MD Primary Care Provider [phone] Allergies Active Allergy Reactions Criticality Noted Date Comments Vu Inhibitors 10/05/2023 Codeine 05/20/2022 Diphenhydramine 04/17/2021 Hydromorphone 10/25/2019 Meperidine 04/17/2021 Morphine Other 10/25/2019 pt states bad reaction Oxycodone Hives 05/20/2022 Medications acetaminophen (TYLENOL) 500 mg tablet Take 1 tablet (500 mg total) by mouth if needed. 11/03/19 24 Active albuterol HFA (PROAIR HFA ; PROVENTIL HFA ; VENTOLIN HFA) 90 mcg/actuation inhaler Inhale 2 puffs by mouth if needed. Active amitriptyline (ELAVIL) 10 mg tablet Take 1 tablet (10 mg total) by mouth 1 (one) time each day with dinner. Active budesonide-fo rmoteroL (SYMBICORT) 160-4.5 mcg/actuation inhaler Inhale 2 puffs by mouth if needed. 10/24/19 21 Active cephalexin (KEFLEX) 500 mg capsule Take 1 capsule (500 mg total) by mouth 2 (two) times a day. 09/08/19 Active clotrimazole (LOTRIMIN) 1 % cream Apply 1 Application topically 2 (two) times a day. 09/08/19 Active diclofenac (VOLTAREN) 1 % topical gel [...] 06/17/19 24 Active tirzepatide, weight loss, (Zepbound) 10 mg/0.5 mL injection Inject 0.5 mL (10 mg total) under the skin every 7 (seven) days. 2 mL 10/22/19 25 025 Active tirzepatide, weight loss, (Zepbound) 7.5 mg/0.5 mL injection Inject 0.5 mL (7.5 mg total) under the skin every 7 (seven) days for 28 days. 2 mL 09/09/19 25 025 Discontinued Zepbound 7.5 mg/0.5 mL injection Inject 0.5 mL (7.5 mg total) under the skin every 7 (seven) days for 28 days. 2 mL 10/22/19 25 025 Discontinued(Do se adjustment) Active Problems Problem Noted Date Diagnosed Date Class 2 obesity with body ma ss index (BMI) of 35.0 to 35.9 in adult 03/31/2024 Asthma 12/29/2023 CKD (chronic kidney disease) 12/29/2023 GERD (gastroesophageal reflux disease) HTN (hypertension) 12/29/2023 LEANNA (obstructive sleep apnea) 12/29/2023 Seizures (CMS/HCC V24, CMS/HCC V28) 12/29/2023 Encounters Date Type Department Care Team Description 10/18/2024 Telephone Bariatric Surgery [address] [phone] Tavon Galdamez MD Med Refill (Zepbound) 08/23/2024 10:00 AM EDT Office Visit Bariatric Surgery [address] [phone] Tavon Galdamez MD Class 2 obesity due to excess calories with body mass index (BMI) of 35.0 to 35.9 in adult, unspecified whether serious comorbidity present (Primary Dx) [...] Sign Reading Time Taken Comments Blood Pressure 162/87 08/23/2024 10:03 AM EDT Pulse 57 08/23/2024 10:03 AM EDT Temperature 36.6 C (97.8 F) 08/23/2024 10:03 AM EDT Respiratory Rate - - Oxygen Saturation - - Inhaled Oxygen Concentration - - Weight 84.4 kg (186 lb) 08/23/2024 10:03 AM EDT Height 154.9 cm (5' 1 ) 08/23/2024 10:03 AM EDT Body Mass Index 35.14 08/23/2024 10:03 AM EDT Plan of Treatment Upcoming Encounters Date Type Department Care Team (Late st Contact Info) Description 01/03/2025 8:30 AM EDT Nutrition Bariatric Surgery - [place] [address] [phone] Tammy Sands, SHIRA [address] [phone] 02/21/2025 8:00 AM EST Office Visit Bariatric Surgery [address] [phone] Tavon Galdamez MD [address] [address] Health Maintenance Due Date Last Done Comments Breast Cancer Screening 1965 Hepatitis B Vaccines (1 of 3 - 19+ 3-dose series) 1985 Zoster Vaccines (1 of 2) 1985 Cervical Cancer Screening: Pap Smear 1987 Pneumococcal Vaccine: 50+ Years (2 of 2 - PCV) 12/31/2007 12/30/2006 DTaP,Tdap,and Td Vaccines (2 - Td or Tdap) 07/30/2021 07/31/2011 Colorectal Cancer Screening: Colonoscopy 03/02/2022 HIV Screening 03/02/2022 Hepatitis C Screening 03/02/2022 Medicare Annual Wellness Visit 03/02/2022 Social Influencers of Health Screening 03/02/2022 COVID-19 Vaccine ( season) 2023 03/14/2021, 07/31/2020, 07/10/2020 Depression Screening 03/30/2024 Influenza Vaccine (#1) 2024 , 01/19/2023, 01/21/2022, Additional history exists Hypertension/CHF/CAD Annual BMP Blood Test 04/18/2025 04/18/2024 Cholesterol Screening (Lipid Panel) 04/18/2029 04/18/2024 HIB Vaccines Aged Out No longer eligi [...] age to complete this topic Meningococcal B Vaccine Aged Out No l onger eligible based on patient's age to complete this topic RSV Immunization Patients Under 20 months Aged Out No longer eligible based on patient's age to complete this topic Varicella Vaccines Aged Out No longer eligible based on patient's age to complete this topic Procedures Procedure Name Priority Date/Time Associated Diagnosis Comments COMPREHENSIVE METABOLIC PANEL Routine 04/18/2024 8:43 AM [...] serious comorbidity present from Last 3 Months or Most Recently Relevant to Health Maintenance Results * (ABNORMAL) Lipid panel with reflex to direct LDL (04/18/2024 8:43 AM EST) Cholesterol 181 0 - 200 mg/dL LAB CHEMISTRY METHOD 04/18/2024 10:22 AM EST [facility] Triglycerides 90 0 - 150 mg/dL LAB CHEMISTRY METHOD 04/18/2024 10:22 AM EST [facility] HDL 58 >=40 mg/dL LAB CHEMISTRY METHOD 04/18/2024 10:22 AM [facility] LDL Calculated 105(H) 0 - 100 mg/dL LAB CHEMISTRY METHOD 04/18/2024 10:22 AM [facility] VLDL Cholesterol Gerhard 18 mg/dL LAB CHEMISTRY METHOD 04/18/2024 10:22 AM [facility] Non HDL Chol. (LDL+VLDL) 123 <145 mg/dL LAB CHEMISTRY METHOD 04/18/2024 10:22 AM [facility] Chol/HDL Ratio 3.1 0.0 - 4.4 LAB CHEMISTRY METHOD 04/18/2024 10:22 AM [facility] Blood Venous blood specimen / Unknown Venipuncture / Unknown 04/18/2024 8:43 AM EST 04/18/2024 8:44 AM EST us Haydee Espinosa MD LAB BLOOD ORDERABLES Fi nal Result [facility] [address] [place] [address], * (ABNORMAL) Comprehensive metabolic panel (04/18/2024 8:43 AM EST) Sodium 140 133 - 145 mmol/L LAB CHEMISTRY METHOD 04/18/2024 10:22 AM [facility] Potassium 4.6 3.5 - 5.5 mmol/L LAB CHEMISTRY METHOD 04/18/2024 10:22 AM [facility] Chloride 106 96 - 110 mmol/L LAB CHEMISTRY METHOD 04/18/2024 10:22 AM [facility] CO2 30 21 - 32 mmol/L LAB CHEMISTRY METHOD 04/18/2024 10:22 AM [facility] Anion Gap 4 3 - 11 LAB CHEMISTRY METHOD 04/18/2024 10:22 AM [facility] Glucose 90 70 - 100 mg/dL LAB CHEMISTRY METHOD 04/18/2024 10:22 AM [facility] BUN 31(H) 5 - 25 mg/dL LAB CHEMISTRY METHOD 04/18/2024 10:22 AM [facility] Creatinine 2.11(H) 0.50 - 1.10 mg/dL LAB CHEMISTRY METHOD 04/18/2024 10:22 AM [facility] eGFR 27(L) >=60 mL/min/1. 73m2 LAB CHEMISTRY METHOD 04/18/2024 10:22 AM [facility] Comment:Calculation based on the Chronic Kidney Disease Epidemiology Collaboration (CKD-EPI) equation refit without adjustment for race. BUN/Creatinine Ratio 14.7 LAB CHEMISTRY METHOD 04/18/2024 10:22 AM [facility] Calcium 9.2 8.5 - 10.5 mg/dL LAB CHEMISTRY METHOD 04/18/2024 10:22 AM [facility] AST (SGOT) 18 10 - 42 unit/L LAB CHEMISTRY METHOD 04/18/2024 10:22 AM [facility] ALT (SGPT) 21 10 - 60 unit/L LAB CHEMISTRY METHOD 04/18/2024 10:22 AM [facility] Alkaline Phosphatase 112 42 - 121 unit/L LAB CHEMISTRY METHOD 04/18/2024 10:22 AM [facility] Total Protein 6.5 6.0 - 8.0 g/dL LAB CHEMISTRY METHOD 04/18/2024 10:22 AM [facility] Albumin 3.4 3.2 - 5.0 g/dL LAB CHEMISTRY METHOD 04/18/2024 10:22 AM [facility] Total Bilirubin 0.2 0.0 - 1.4 mg/dL LAB CHEMISTRY METHOD 04/18/2024 10:22 AM [facility] Blood Venous blood specimen / Unknown Venipuncture / Unknown 04/18/2024 8:43 AM EST 04/18/2024 8:44 AM EST us Haydee Espinosa MD LAB BLOOD ORDERABLES Fi nal Result [facility] [address] [place] [address], from Last 3 Months or Most Recently Relevant to Health Maintenance Insurance [employer] MEDICARE Member Subscriber Plan / Payer (Ef fective 2018-Present) Name:Roxie Hobbs I Relation to Subscriber:Self Name:Roxie Hobbs I Payer ID:[id number] Group ID:[id number] Type:Not on file Address: [address] [address] Care Teams Interlibrary Loan Services Librarian Relationship Specialty Start Date End Date Daryn Duarte MD [address] [place] [address] Dr [address] [place], [place] PCP - General Internal Medicine 05/21/17
== END 2024-11-16 11:55 | disposition home or self-care (01) ==
LOC: HO.HKAS 11:37
PROVIDERS: PCP Internal Medicine; Visit Provider Internal Medicine Hypertension Specialist
DX: N18.32 Chronic kidney disease, stage 3b (principal); I10 Essential (primary) hypertension; E66.9 Obesity, unspecified
CPT/HCPCS: 99214

== ENCOUNTER → 2024-11-16 11:37 | Outpatient (BNVA) | payer OTHER, SELFPAY | PROVIDERS: PCP Internal Medicine; Visit Provider Internal Medicine Hypertension Specialist | DX: N18.32 Chronic kidney disease, stage 3b (principal); I10 Essential (primary) hypertension; E66.9 Obesity, unspecified | CPT/HCPCS: 99212 ==

== ENCOUNTER 2025-01-10 10:23 | Outpatient (AMB) | payer OTHER, SELFPAY ==
[2025-01-10 10:31] VITALS: BP 149/91; PULSE 55; BMI 32.6
--- NOTE | 2025-01-10 10:31 | MHC.OFFVIS ---
Vital Signs 01/10/25 10:31 Height 5 ft 1 in Weight 172 lb 6.424 oz BMI 32.6 BP 149/91 H Blood Pressure Location Rt brachial Position Sitting Pulse 55 Intake Visit Reasons: Follow up 8wks Intake Note: Roxie returns to in office follow up of GERD and CIC. CC: Patient c/o abdominal bloating. End User Support Specialist Required: No Accompanied by: Self / Same As Patient Allergies diphenhydramine (From Benadryl) Allergy (Severe, Verified 11/16/24 11:46) Angioedema hydromorphone (From Dilaudid) Allergy (Intermediate, Verified 11/16/24 11:46) Increased BP FRANK Inhibitors (FRANK INHIBITORS) Allergy (Unknown, Verified 11/16/24 11:46) PER H&P codeine Allergy (Unknown, Verified 11/16/24 11:46) Rash meperidine Allergy (Unknown, Verified 11/16/24 11:46) Rash morphine Allergy (Unknown, Verified 11/16/24 11:46) RASH, DIFF BREATHING,CHEST PRESSURE, throat swelling TAPE,PLASTIC Allergy (Unknown, Uncoded 11/15/24 11:43) Rash HPI HPI Follow up 8wks: Details: Assessment & Plan (1) GERD (gastroesophageal reflux disease): Comment: Stage 3CKD trying to get lansoprazole to accommodate this. She had a metallic side effect from famotidine/H2 medications Code(s): K21.9 - Gastro-esophageal reflux disease without esophagitis Category: Medical (2) Roach's esophagus: Comment: LAST EGD 2018 DUE FOR REPEAT TO SURVEY 2020 OR 2021. AEB Code(s): K22.70 - Roach's esophagus without dysplasia Category: Medical Qualifiers: Roach's esophagus type: without dysplasia Qualified Code(s): K22.70 - Roach's esophagus without dysplasia (3) Chronic idiopathic constipation: Code(s): K59.04 - Chronic idiopathic constipation Category: Medical (4) Abdominal bloating: Code(s): R14.0 - Abdominal distension (gaseous) Category: Medical Plan History of Present Illness - The patient is a 59-year-old female presenting with constipation and gastrointestinal concerns. - History of worsening constipation attributed to both Zepbound (a GLP-1 medication), amitriptyline, Lasix, amlodipine, tizanidine and iron supplementation. - Reports symptoms describe difficulty in bowel movements, potentially impacted by past rectocele diagnosis. - Notable weight loss is reported from using Zepbound; however, she experiences increased bloating. - Regular dietary intake includes apples and watermelon, potentially leading to bloating and constipation. She was puzzle because she thought fruits would help her move her bowels but apples tend to be a bit finding which is why they are part of the brat diet. She might try pairs, but grapefruit in the past has given her worsening acid reflux. - Allergic symptoms observed in cold air exposure from air conditioning, leading to nasal congestion and sneezing. Review of Systems - Gastrointestinal: Reports constipation, history of gastric inflammation, bloating, and weight loss. Denies current heartburn. - Musculoskeletal: Reports difficulty with defecation due to pelvic floor issues. - Allergic/Immunologic: Reports sneezing and nasal congestion linked to air conditioning. - General: Reports weight loss and increased energy levels. Patient Instructions - continue your Linzess but we are increasing it is 290 micro g, along with your lansoprazole, senna, magnesium and simethicone. - Maintain a balanced diet high in fiber, considering options like prunes or dates. - Monitor for any new symptoms, particularly changes in bowel habits, and report these. - Hydrate adequately to help manage bowel movements. - Attend follow-up appointments and schedule any interim contact if concerns arise. Return office visit in 6 weeks to evaluate the affective increasing the Linzess and consider other options as we titrate to affect her side effect. Medications: New linaclotide (Linzess) 290 mcg PO QAM 30 caps 6RF 30 days Refilled lansoprazole 30 mg PO DAILY 30 caps 6RF K21.9 - Gastro-esophageal reflux disease without esophagitis sennosides (Savanna-dean) 17.2 mg (2 x 8.6 mg) PO BEDTIME 60 tabs 6RF K59.04 - Chronic idiopathic constipation simethicone (Gas Relief Extra Strength) 125 mg PO QID PRN 120 tabs 6RF for abdominal pain magnesium oxide 400 mg PO DAILY 30 tabs 6RF Discontinued linaclotide (Linzess) Discontinued Reason: Doctor's Order 145 mcg PO QAM 30 caps 6RF K59.04 - Chronic idiopathic constipation TODAY'S VISIT [facility] Medical History (Updated 01/10/25 @ 10:42 by JOSEPH Packer) Annual physical exam Edema Benign essential hypertension FSGS (focal segmental glomerulosclerosis) Family history of colonic polyps Left-sided low back pain with sciatica Mid back pain on right side Left hip pain Back pain Abdominal cramping Right lateral abdominal pain Right flank pain Pre-op examination LEANNA treated with BiPAP RLQ abdominal tenderness Right flank pain Left elbow pain Left shoulder pain Urinary incontinence Breast calcification, right Chronic renal insufficiency Asthma Migraine Normal colonoscopy (~12/25/16) Obstructive sleep apnea Diverticulitis Vitamin D deficiency Hypertension Surgical History History of surgery on wrist History of biopsy History of facial surgery History of carpal tunnel repair History of nasal surgery History of ankle surgery (~2012) History of cryosurgery History of pubovaginal sling Hx of hernia repair History of bilateral tubal ligation Hx laparoscopic cholecystectomy (~2001) History of esophagogastroduodenoscopy Hx of colonoscopy Family History Mother High blood pressure Diabetes Arthritis Father Diabetes Kidney disease Heart disease Brother Diabetes Maternal Aunt Cancer of breast Brother Colon cancer, Onset Age: 57 Maternal Grandmother Cancer of breast Social History Household Members: None Housing: Apartment Alcohol intake: current Alcohol intake frequency: a few times a month Alcohol type: wine and hard liquor Patient Tobacco Use Status: Former Tobacco user Tobacco use type: Cigarette Years Smoked: 7 e-Cigarette/Vaping Use: Never Used Second Hand Smoke Exposure: No service: No Current occupational status: disabled Current occupational exposures/hazards: No Cognitive needs: No Hearing needs: No Vision needs: Yes Female Reproductive History Menstrual Age of Menarche: 13 Review of Systems Const Denies fatigue, Denies fever(s), Denies night sweats, Denies poor appetite and Denies weight loss Eyes Details: glasses Reports requires corrective lenses ENT Reports Normal hearing present, Denies dental pain, Denies dysphagia, Denies hearing loss, Denies mouth pain, Denies odynophagia, Denies throat swelling, Denies tongue swelling and Reports other (Dentition adequate) Card Reports no additional complaints Resp Reports no additional complaints GI Details: Denies abdominal pain, Denies melena, Reports bloating, Denies hematochezia, Reports constipation, Denies GI cramping, Denies dysphagia, Denies excessive flatus, Denies early satiety, Reports heartburn, Denies diarrhea, Denies nausea, Denies odynophagia, Denies vomiting and Denies hematemesis Skin/Breast Denies pruritus, Denies lesions, Denies rash and Denies jaundice Neuro Reports Normal hearing present and Denies Abnormal speech present Endo Denies fatigue Aller/Immun Denies throat swelling and Denies tongue swelling Physical Exam Vital Signs: Last Vital Signs Pulse 55 01/10/25 10:31 BP 149/91 H 01/10/25 10:31 BMI result Body Mass Index 32.6 Const General: cooperative, no acute distress, well developed and well groomed Nutritional Appearance: well nourished and obese Orientation/consciousness: oriented to person, oriented to place and oriented to time Limitations: language barrier HEENT Head: Yes normocephalic and Yes atraumatic Eyes General: appearance normal, both eyes and all related structures Pupils: Equal, round and reactive pupils present Neck Neck: Yes normal visual inspection and Yes no lymphadenopathy Thyroid: Thyroid normal Resp Effort & Inspection: normal respiratory effort and able to speak in complete sentences Auscultation: clear to auscultation bilaterally Cardio Rate: regular rate Rhythm: regular rhythm Heart sounds: Normal, physiologic split S2 sound present Peripheral pulses: radial pulses present and posterior tibial pulses present GI Inspection: Yes distended, Yes Abdominal panniculus present and Yes obesity Palpation (GI): Soft to palpation, nontender, no guarding, not rigid and No hepatosplenomegaly present Percussion: Yes normal to percussion Auscultation: normal bowel sounds Rectal Exam - Female: deferred Abdomen image:  1. Surgical scar Skin General skin exam: no rashes or lesions noted, turgor normal, skin not dry, no jaundice, No spider nevi and no striae Rashes: no rashes Nails: normal Neuro General: oriented to person, oriented to place and oriented to time Cranial nerves: Yes Equal, round and reactive pupils present and Yes Normal hearing present Speech: No Abnormal speech present Extrem General: Yes normal to inspection, No clubbing, No cyanosis and No edema Psych Appearance: grossly normal and well kempt Mental Status: mental status grossly normal Speech and movement: Normal speech and movement present Affect: normal affect Attitude: cooperative Thought process: Normal thought process present and not confabulating Thought content: Normal thought content present Insight: Limited insight present (Psych) Judgement: Limited judgement present (Psych) Assessment & Plan Assessment & Plan (1) Chronic idiopathic constipation: Code(s): K59.04 - Chronic idiopathic constipation Category: Medical (2) GERD (gastroesophageal reflux disease): Comment: Stage 3CKD trying to get lansoprazole to accommodate this. She had a metallic side effect from famotidine/H2 medications Code(s): K21.9 - Gastro-esophageal reflux disease without esophagitis Category: Medical (3) Roach's esophagus: Comment: 2022 scope= negative biopsy; EGD 2018 Code(s): K22.70 - Roach's esophagus without dysplasia Category: Medical Qualifiers: Roach's esophagus type: without dysplasia Qualified Code(s): K22.70 - Roach's esophagus without dysplasia Plan She continues on lansoprazole once a day, simethicone, senna, magnesium, and Linzess 290 micro g. Despite us increasing the Linzess she says that she still has episodes of bloating. However, with conversation she is not taking the Linzess every day because she is fearful of having to move her bowels when she is out and about during appointments. She denies it giving her diarrhea per se, it is just that she has a 1 rapid onset of bowel movement with a slightly unpredictable onset of timing. Because of this I suggest she switch her dosing to just before supper to see if this gives her better control without interfering with her life. I do not want her to take it too late because we do not want to interrupt her sleep. We will see how she does with this before we decide if she needs any further interventions or investigations. The bloating is confined to the upper abdomen which is interesting. Return office visit in 8 weeks Coding Level of Care Code Est Pt Level 3 (26684) Diagnoses Chronic idiopathic constipation K59.04 GERD (gastroesophageal reflux disease) K21.9 Roach's esophagus without dysplasia K22.70 Roach's esophagus type: without dysplasia
--- OUTSIDE RECORDS SUMMARY | 2025-01-10 12:16 | XMS_ITS | Clinical Summary ---
Author Organization [facility] Address [address] [place] [address] Phone Care Team Providers Care Efficiency Miner Blasting Name Role Phone Daryn Duarte MD Primary Care Provider [phone] Allergies Active Allergy Reactions Criticality Noted Date [...] on file Medical Devices Implanted Type Area Pump Stitcher Device Identifier Shelf Expiration Date Model / Serial / Lot Clip Clip Right: Breast Mesh Mesh Insurance MEDICARE REPLACEMENT [address] [id number] MEDICARE REPLACEMENT MEDICARE REPLACEMENT MEDICARE REPLACEMENT MEDICARE REPLACEMENT MEDICARE REPLACEMENT MEDICARE REPLACEMENT [facility] CARE MEDICARE REPLACEMENT [address] [id number] Care Teams Efficiency Miner Blasting Relationship Specialty Start Date End Date Daryn Duarte MD [address] [place] [address] [place] [address] PCP - General Internal Medicine 10/20/19 Additional Source Comments The information contained in this document represents components of the legal health record. It is not the complete legal health record.[facility]
--- OUTSIDE RECORDS SUMMARY | 2025-01-10 12:16 | XMS_ITS | Encounter Summary ---
Author Organization [facility] Address [address] [place] [address] Phone Care Team Providers Care Navy Seal Name Role Phone Daryn Duarte MD Primary Care Provider [phone] Encounter Details Date Type Department Care Team (Late st Contact Info) Description 10/27/2019 Procedure Pass [facility] [address] [place] [address] Social History Tobacco Use Types Packs/Day Years Used Date Smoking Tobacco: Former Cigarettes 1.5 12 2 - 2013 Smokeless Tobacco: Never Alcohol Use Standard Drinks/Week Comments Yes 2 (1 standard drink = 0.6 oz pur e alcohol) Comments Unknown Sex and Gender Information Value Date Recorded Sex Assigned at Not on file Legal Sex Female 12:47 PM EDT Gender Identity Not on file Sexual Orientation Not on file documented as of this encounter Plan of Treatment Not on file documented as of this encounter Visit Diagnoses Not on filedocumented in this encounter Care Teams [employer] Seal Relationship Specialty Start Date End Date Daryn Duarte MD [address] [place] [address] [place] [address] PCP - General Internal Medicine 10/20/19 documented as of this encounter Additional Source Comments The information contained in this document represents components of the legal health record. It is not the complete legal health record.[facility]
--- OUTSIDE RECORDS SUMMARY | 2025-01-10 12:16 | XMS_ITS | Clinical Summary ---
Author Organization [facility] Address [address] [place] [address] Phone Care Team Providers Care Geriatric Physician Name Role Phone Daryn Duarte MD Primary Care Provider [phone] Allergies Active Allergy Reactions Criticality Noted Date [...] 2 Active Cholecalciferol (Vitamin D3) 250 MCG (64169 UT) tablet Take by mouth Activ e [...] Comments Breast Cancer Screening 1965 Hepatitis B Vaccine (1 of 3 - 19+ 3-dose series) 03/18 Pneumococcal Vaccine: 50+ Years (1 of 2 - PCV) 985 Colorectal Cancer Screening: Annual FOBT 2015 Colorectal Cancer Screening: Colonoscopy 2015 Colorectal Cancer Screening: Sigmoidoscopy 2015 Influenza Vaccine (#1) 2024 Insurance ([id number]) ([id number]) Care Teams Geriatric Physician Relationship Specialty Start Date End Date Daryn Duarte MD [address] [place] [id number] PCP - General 04/09/20
--- OUTSIDE RECORDS SUMMARY | 2025-01-10 12:16 | XMS_ITS | Encounter Summary ---
Author Organization [facility] Address [address] [place] [address] Care Team Providers Care Colorist Dyer Name Role Phone Daryn Duarte MD Primary Care Provider [phone] Reason for Visit * Reason Comments Med Refill Encounter Details Date Type Department Care Team (Late st Contact Info) Description 12/17/2024 Telephone Bariatric Surgery - [place] 175 [facility] [address] [place] [address] Tavon Galdamez MD [address] [place] [phone] Social History Tobacco Use Types Packs/Day Years Used Date Smoking Tobacco: Never Assessed Comments Unknown Sex and Gender Information Value Date Recorded Sex Assigned at Female 05/22/2022 2:55 AM EST Legal Sex Female 5:03 AM EST Gender Identity Female 05/22/2022 2:55 AM EST Sexual Orientation Not on file documented as of this encounter Progress Notes * Cami Millan - 12/19/2024 8:34 AM EDT Patient did well on Zepbound 10 mgs and would like a refill with titration. If appropriate, please send script for Zepbound 12.5 mgs to their pharmacy. The patient does have a follow up in 01/03/2025 documented in this encounter Plan of Treatment Upcoming Encounters Date Type Department Care Team (Late st Contact Info) Description 02/21/2025 8:00 AM EST Office Visit Bariatric Surgery - [place] [address] [phone] Tavon Galdamez MD [address] [place] [phone] 04/06/2025 12:30 PM EST Nutrition Bariatric Surgery - [place] [address] [phone] Tammy Sands, RD [address] [phone] documented as of this encounter Visit Diagnoses Not on filedocumented in this encounter Care Teams Colorist Dyer Relationship Specialty Start Date End Date Daryn Duarte MD [address] [place] [address] PCP - General Internal Medicine 05/21/17 documented as of this encounter
--- OUTSIDE RECORDS SUMMARY | 2025-01-10 12:16 | XMS_ITS | Clinical Summary ---
Author Organization 175 [facility] Address [address] [place] [address] Phone Care Team Providers Care Energy Operations Vice President Name Role Phone Daryn Duarte MD Primary Care Provider [phone] Allergies Active Allergy Reactions Criticality Noted Date Comments Vu Inhibitors 10/05/2023 Codeine 05/20/2022 Diphenhydramine 04/17/2021 Hydromorphone 10/25/2019 Meperidine 04/17/2021 Morphine Other 10/25/2019 pt states bad reaction Oxycodone Hives 05/20/2022 Medications acetaminophen (TYLENOL) 500 mg tablet Take 1 tablet (500 mg total) by mouth if needed. 4 Active albuterol HFA (PROAIR HFA ; PROVENTIL HFA ; VENTOLIN HFA) 90 mcg/actuation inhaler Inhale 2 puffs by mouth if needed. Active amitriptyline (ELAVIL) 10 mg tablet Take 1 tablet (10 mg total) by mouth 1 (one) time each day with dinner. Active budesonide-formo teroL (SYMBICORT) 160-4.5 mcg/actuation inhaler Inhale 2 puffs by mouth if needed. 1 Active cephalexin (KEFLEX) 500 mg capsule Take 1 capsule (500 mg total) by mouth 2 (two) times a day. 9 Active clotrimazole (LOTRIMIN) 1 % cream Apply 1 Application topically 2 (two) times a day. 9 Active diclofenac (VOLTAREN) 1 % topical gel Apply 2 g topically 2 (two) times a day. 4 Active furosemide (LASIX) 40 mg tablet Take [...] g topically 2 (two) times a day. 4 Active rizatriptan (MAXALT) 10 mg tablet Take 1 tablet (10 mg total) by mouth 1 (one) time if needed. Active simethicone (MYLICON) 125 mg chewable tablet Chew 1 tablet (125 mg total) every 6 (six) hours if needed. 4 Active SUMAtriptan (IMITREX) 100 mg tablet Take 1 tablet (100 mg total) by mouth 1 (one) time if needed. Active topiramate (TOPAMAX) 50 mg tablet Take 1 tablet (50 mg total) by mouth if needed. 4 Active tirzepatide, weight loss, (Zepbound) 12.5 mg/0.5 mL injectionIndicat ions:Class 2 obesity due to excess calories with body mass index (BMI) of 35.0 to 35.9 in adult, unspecified whether serious comorbidity present Inject 0.5 mL (12.5 mg total) under the skin every 7 (seven) days. 2 mL 2 5 03/19/20 25 Active Active Problems Problem Noted Date Diagnosed Date Class 1 obesity with serious comorbidity and body mass index (BMI) of 33.0 to 33.9 in adult 03/31/2024 Asthma 12/29/2023 CKD (chronic kidney disease) 12/29/2023 GERD (gastroesophageal reflux disease) HTN (hypertension) 12/29/2023 LEANNA (obstructive sleep apnea) 12/29/2023 Seizures (CMS/[facility] V24, CMS/FORMER[facility] V28) 12/29/2023 Encounters Date Type Department Care Team Description 01/03/2025 8:30 AM EDT Nutrition Bariatric Surgery - [address] [phone] Class 1 obesity with serious comorbidity and body mass index (BMI) of 33.0 to 33.9 in adult, unspecified obesity type (Primary Dx) 12/17/2024 Telephone Bariatric Surgery [address] [phone] Tavon Galdamez MD 10/18/2024 Telephone Bariatric Surgery [address] [phone] Tavon Galdamez MD from Last 3 Months Social History Tobacco [...] - Inhaled Oxygen Concentration - - Weight 78 kg (172 lb) 01/03/2025 8:39 AM EDT Height 154.9 cm (5' 1 ) 08/23/2024 10:03 AM EDT Body Mass Index 32.5 08/23/2024 10:03 AM EDT Plan of Treatment Upcoming Encounters Date Type Department Care Team (Late st Contact Info) Description 02/21/2025 8:00 AM EST Office Visit Bariatric Surgery - [place] 175 [facility] [address] [place] [address] Tavon Galdamez MD [address] [place] [phone] 04/06/2025 12:30 PM EST Nutrition Bariatric Surgery - [place] 175 [facility] [address] [place] [phone] Tammy Sands, RD [address] [phone] Health Maintenance Due Date Last Done Comments Breast Cancer Screening 1966 Colorectal Cancer Screening: Colonoscopy 1966 Hepatitis B Vaccines (1 of 3 - 19+ 3-dose series) 1985 Zoster Vaccines (1 of 2) 1985 Cervical Cancer Screening: Pap Smear 1987 Pneumococcal Vaccine: 50+ Years (2 of 2 - PCV) 12/31/2007 12/30/2006 DTaP,Tdap,and Td Vaccines (2 - Td or Tdap) 07/30/2021 07/31/2011 HIV Screening 03/02/2022 Hepatitis C Screening 03/02/2022 Medicare Annual Wellness Visit 03/02/2022 Social Influencers of Health Screening 03/02/2022 Depression Screening 03/30/2024 COVID-19 Vaccine ( season) 2024 03/14/2021, 07/31/2020, 07/10/2020 Influenza Vaccine (#1) 2024 , 01/19/2023, 01/21/2022, Additional history exists Hypertension/CHF/CAD Annual BMP Blood Test 04/18/2025 04/18/2024 Cholesterol Screening (Lipid Panel) 04/18/2029 04/18/2024 RSV Immunization Adult Patients (1 - 1-dose 75+ series) 2041 HIB Vaccines Aged Out No longer eligi [...] 04/18/2024 10:22 AM [facility] Triglycerides 90 0 - 150 mg/dL LAB CHEMISTRY METHOD 04/18/2024 10:22 AM [facility] HDL 58 >=40 mg/dL LAB CHEMISTRY METHOD 04/18/2024 10:22 AM [facility] LDL Calculated 105(H) 0 - 100 mg/dL LAB CHEMISTRY METHOD 04/18/2024 10:22 AM [facility] VLDL Cholesterol Gerhard 18 mg/dL [...] MD LAB BLOOD ORDERABLES Fi nal Result [facility] [address] [place] [address], [place] [phone] * (ABNORMAL) Comprehensive metabolic panel (04/18/2024 8:43 AM EST) Sodium 140 133 - 145 mmol/L LAB CHEMISTRY METHOD 04/18/2024 10:22 AM [facility] Potassium 4.6 3.5 - 5.5 mmol/L LAB CHEMISTRY METHOD 04/18/2024 10:22 AM [facility] Chloride 106 96 - 110 mmol/L LAB CHEMISTRY METHOD 04/18/2024 10:22 AM [facility] CO2 30 21 - 32 [...] [facility] Comment:Calculation based on the Chronic [...] MD LAB BLOOD ORDERABLES Fi nal Result [facility] [address] [place] [address], from Last 3 Months or Most Recently Relevant to Health Maintenance Insurance [employer] Member Subscriber Plan / Payer (Ef fective 2018-Present) Name:ROXIE HOBBS Relation to Subscriber:Self Name:Roxie Hobbs I Payer ID:[id number] Group ID:[id number] Type:Not on file Address: [place] [address] [address] [phone] Care Teams Energy Operations Vice President Relationship Specialty Start Date End Date Daryn Duarte MD [address] [place] [address] [address] [place], [place] PCP - General Internal Medicine 05/21/17
--- OUTSIDE RECORDS SUMMARY | 2025-01-10 12:16 | XMS_ITS | Encounter Summary ---
Author Organization [facility] Address [address] [place] [address] Phone Care Team Providers Care Grid Casting Machine Operator Helper Name Role Phone Daryn Duarte MD Primary Care Provider [phone] Encounter Details Date Type Department Care Team (Late st Contact Info) Description 11/19/2021 Telephone [facility] [address] [place] [phone] Mati Durbin MD Social History Tobacco Use [...] your suggestion. Please advise Thank you CB# [phone] Thank you documented in this encounter Plan of Treatment Not on file documented as of this encounter Visit Diagnoses Not on filedocumented in this encounter Care Teams Grid Casting Machine Operator Helper Relationship Specialty Start Date End Date Daryn Duarte MD [address] [place] [address] [address] [place] [address] PCP - General 04/09/20 documented as of this encounter
== END 2025-01-10 11:10 | disposition home or self-care (01) ==
LOC: HO.HGI 10:24
PROVIDERS: PCP Internal Medicine; Visit Provider Nurse Practitioner
DX: K59.04 Chronic idiopathic constipation (principal); K21.9 Gastro-esophageal reflux disease without esophagitis; K22.70 Barrett's esophagus without dysplasia
CPT/HCPCS: 99213

== ENCOUNTER → 2025-01-10 10:23 | Outpatient (BNVA) | payer OTHER, SELFPAY | PROVIDERS: PCP Internal Medicine; Visit Provider Nurse Practitioner | DX: K21.9 Gastro-esophageal reflux disease without esophagitis (principal); K59.04 Chronic idiopathic constipation; K22.70 Barrett's esophagus without dysplasia | CPT/HCPCS: 99212 ==

== ENCOUNTER 2025-02-13 13:21 | Outpatient (REF) | payer OTHER, SELFPAY ==
[2025-02-13 18:14] LABS: Appearance Urine Clear; Glucose Urine UA Negative (Negative); PH 5.0 (5.0-9.0); Specific Gravity - Urine 1.015 (1.005-1.025); UMIC TRIGGER UA YES
[2025-02-13 18:44] LABS: Anion Gap 13 (12-20); Blood Urea Nitrogen 38 mg/dL (9-16); Calcium 9.9 mg/dL (8.4-10.2); Carbon Dioxide 25 mmol/L (22-29); Chloride 108 mmol/L (96-108); Estimated Glomerular Filt Rate 22; Potassium 4.6 mmol/L (3.3-5.1); Sodium 141 mmol/L (135-145)
[2025-02-13 18:57] LABS: Total Protein Urine Random 157 mg/dL (<12)
[2025-02-14 18:54] LABS: Tacrolimus Prograf <1.0 mcg/L
== END 2025-02-13 13:22 | disposition home or self-care (01) ==
LOC: HO.HKASLDS 13:21
PROVIDERS: PCP Internal Medicine; Visit Provider Internal Medicine Hypertension Specialist
DX: I12.9 Hypertensive chronic kidney disease with stage 1 through stage 4 chronic kidney disease, or unspecified chronic kidney disease (principal); N18.32 Chronic kidney disease, stage 3b
CPT/HCPCS: 36415; 80048; 80197; 81001; 82570; 84156

== ENCOUNTER 2025-02-15 11:39 | Outpatient (AMB) | payer OTHER, SELFPAY ==
--- NOTE | 2025-02-15 11:41 | HO.NEPHOV ---
Vital Signs 02/15/25 11:42 Height 5 ft 1 in Weight 169 lb BMI 31.9 BP 132/88 Blood Pressure Location Lt brachial Position Sitting Pulse 56 Pulse Source Pulse Oximeter Pulse Oximetry (%) 97 Oxygen Delivery Method Room Air Intake Visit Reasons: 3mnth w labs Side Stitcher Required: No Accompanied by: Self / Same As Patient Allergies diphenhydramine (From Benadryl) Allergy (Severe, Verified 02/15/25 11:44) Angioedema hydromorphone (From Dilaudid) Allergy (Intermediate, Verified 02/15/25 11:44) Increased BP FRANK Inhibitors (FRANK INHIBITORS) Allergy (Unknown, Verified 02/15/25 11:44) PER H&P codeine Allergy (Unknown, Verified 02/15/25 11:44) Rash meperidine Allergy (Unknown, Verified 02/15/25 11:44) Rash morphine Allergy (Unknown, Verified 02/15/25 11:44) RASH, DIFF BREATHING,CHEST PRESSURE, throat swelling TAPE,PLASTIC Allergy (Unknown, Uncoded 11/15/24 11:43) Rash Medication List - Last Reconciled 02/15/25 by Mati Durbin MD [ADULT PULL UPS (medium) As directed - #60 / month (2 pull ups/day) with 12 refills] albuterol sulfate 90 mcg/actuation 2 puffs PO Q4H PRN amitriptyline 10 mg PO BEDTIME amlodipine 10 mg PO DAILY [BEDSIDE COMMODE As directed] [bladder pads As directed - #90/month (3 pads / day), with 12 refills] budesonide-formoterol 160-4.5 mcg/actuation 2 inhalations inhalation BID [CPAP device As directed] dapagliflozin propanediol (Farxiga) 10 mg PO DAILY 90 days diclofenac sodium 1% (Arthritis Pain (diclofenac)) 2 grams topical QID PRN ferrous sulfate 325 mg PO TID [foot pedal As directed] furosemide 20 mg PO DAILY [incontinence wipes As directed] lansoprazole 30 mg PO DAILY lidocaine 5% 1 patch topical DAILY linaclotide (Linzess) 290 mcg PO QAM 30 days losartan 100 mg PO DAILY magnesium oxide 400 mg PO DAILY nystatin 1 appl topical BID PRN rizatriptan 10 mg PO Q2-4H PRN sennosides (Savanna-dean) 17.2 mg (2 x 8.6 mg) PO BEDTIME simethicone (Gas Relief Extra Strength) 125 mg PO QID PRN tacrolimus 1 mg PO Q12H tirzepatide (weight loss) (Zepbound) 12.5 mg subcut QWEEK tizanidine 2 mg PO BID PRN topiramate 100 mg PO BID HPI Comments Details: Middle-aged woman with history of obesity and hypertension with proteinuria and CKD. She has biopsy-proven FSGS. Biopsy was done more than 15 years ago. Serum creatinine fluctuates between 1.5 minutes 1.8 mg/dL. Recently she was started on Farxiga by another laborer starch factory. She continues to experience knee pain. She also has history of constipation for which she is on Linzess. Today she has no shortness of breath. No nausea vomiting. No edema. No urinary symptoms. Recently she underwent ultrasound of the neck which showed multiple lymph nodes. Still with joint pains Cr is up to 1.8 and 2.1 gm proteinuria She underwent a repeat kidney biopsy. Official results are still pending. I spoke to the pathologist and she did have FSGS and electron microscopy is still pending. 02/10/24 ;Overall doing OK ;NO change in weight ;Uses CPAP 09/07/24 59-year-old female presenting with chronic kidney disease management due to 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. She reports persistent constipation, worsened by exercise and dietary changes. Constipation has been present for a prolonged period despite using laxatives and modifying her diet. The patient's chronic kidney disease has shown a progressive decline in glomerular filtration rate from 39% to 23% over two years. She continues to take losartan and Farxiga, . The patient's anemia necessitates iron supplementation thrice daily, but she reported reducing this to twice daily due to constipation. Hospital visits reveal slightly elevated potassium levels, potentially from dietary sources. Currently on Zepbound and has lost weight 204 to 188 lbs 02/15/25 The patient is a 59-year-old female FSGS . Her kidney function has been stable over the last year, though it remains low. She is taking tacrolimus and confirms she takes it regularly in the morning, despite a previously low level. The patient has achieved significant weight loss, going from 205 lbs to a current weight of 169 lbs with the use of Zepbound, and reports feeling better. Her blood pressure has also improved, with a recent reading of 132, while on losartan and furosemide. The patient continues to experience lower leg pain. She reports frequent lightheadedness upon standing or walking. She also describes a new symptom that started yesterday, which is a hot, burning sensation in her hands, requiring her to sleep with gloves. Past medical history is significant for seizures, which occurred a long time ago, and slightly underactive thyroid function. Her hemoglobin is good, and she was previously taking iron pills, which she has since been advised to discontinue. [facility] Medical History (Updated 01/10/25 @ 10:42 by JOSEPH Packer) Annual physical exam Edema Benign essential hypertension FSGS (focal segmental glomerulosclerosis) Family history of colonic polyps Left-sided low back pain with sciatica Mid back pain on right side Left hip pain Back pain Abdominal cramping Right lateral abdominal pain Right flank pain Pre-op examination LEANNA treated with BiPAP RLQ abdominal tenderness Right flank pain Left elbow pain Left shoulder pain Urinary incontinence Breast calcification, right Chronic renal insufficiency Asthma Migraine Normal colonoscopy (~12/25/16) Obstructive sleep apnea Diverticulitis Vitamin D deficiency Hypertension Surgical History History of surgery on wrist History of biopsy History of facial surgery History of carpal tunnel repair History of nasal surgery History of ankle surgery (~2012) History of cryosurgery History of pubovaginal sling Hx of hernia repair History of bilateral tubal ligation Hx laparoscopic cholecystectomy (~2001) History of esophagogastroduodenoscopy Hx of colonoscopy Family History Mother High blood pressure Diabetes Arthritis Father Diabetes Kidney disease Heart disease Brother Diabetes Maternal Aunt Cancer of breast Brother Colon cancer, Onset Age: 57 Maternal Grandmother Cancer of breast Social History Household Members: None Housing: Apartment Alcohol intake: current Alcohol intake frequency: a few times a month Alcohol type: wine and hard liquor Patient Tobacco Use Status: Former Tobacco user Tobacco use type: Cigarette Years Smoked: 7 e-Cigarette/Vaping Use: Never Used Second Hand Smoke Exposure: No service: No Current occupational status: disabled Current occupational exposures/hazards: No Cognitive needs: No Hearing needs: No Vision needs: Yes Female Reproductive History Menstrual Age of Menarche: 13 Physical Exam Vital Signs: Last Vital Signs Pulse 56 02/15/25 11:42 BP 132/88 02/15/25 11:42 Pulse Ox 97 02/15/25 11:42 Oxygen Delivery Method Room Air 02/15/25 11:42 BMI result Body Mass Index 31.9 Const General: comfortable Nutritional Appearance: well nourished Orientation/consciousness: patient oriented x3 HEENT Head: No normal to inspection Mouth: moist mucous membranes Neck Neck: Yes supple and Yes no JVD Resp Auscultation: clear to auscultation bilaterally and no rales Cardio Jugular venous distension: no JVD Palpation: no palpable S3 and no palpable S4 Heart sounds: no rubs GI Palpation (GI): Soft to palpation and nontender Percussion: No Fluid wave present General: Yes no CVA tenderness Back/Spine/Pelvis Back: no CVA tenderness Skin General skin exam: no rashes or lesions noted Neuro General: patient oriented x3 Extrem General: Yes no pedal edema and No clubbing Results Reviewed Nephrology Results: Hgb, (12.0-16.0) 13.5 g/dl 11/07/24 WBC, (4.8-10.8) 8.5 X10*3/uL 11/07/24 Plt Count, (160-400) 195 X10*3/uL 11/07/24 Sodium, (135-145) 141 mmol/L 02/13/25 Potassium, (3.3-5.1) 4.6 mmol/L 02/13/25 Chloride, (96-108) 108 mmol/L 02/13/25 Carbon Dioxide, (22-29) 25 mmol/L 02/13/25 BUN, (9-16) 38 mg/dL H 02/13/25 Creatinine, (0.5-1.4) 2.28 mg/dL H 02/13/25 Calcium, (8.4-10.2) 9.9 mg/dL 02/13/25 Urine Protein, (Neg-Trace) 300 (3+) mg/dL H 02/13/25 Urine Creatinine 161.44 mg/dL 02/13/25 Assessment & Plan Assessment & Plan (1) CKD (chronic kidney disease) stage 3, GFR 30-59 ml/min: Comment: 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, with proteinuria Code(s): N18.30 - Chronic kidney disease, stage 3 unspecified Category: Medical Qualifiers: Chronic kidney disease stage 3 subtype: stage 3b (GFR 30-44) Qualified Code(s): N18.32 - Chronic kidney disease, stage 3b Plan: 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 Creatinine fluctuates has gradually increased 1.8 - Remains unchanged Goal slow the progression of kidney disease. Maintain losartan for renal protection She is non nephrotic range proteinuria. Continue to avoid nephrotoxic agents including NSAIDs Repeat kidney biopsy revealed FSGS. Hyperfilteration / secondary FSGS due to obesity She has non nephrotic range proteinuria Urine Pro: Cr is 2.53 Unable to add prednisone due to significant obesity. Started Tacrolimus 1 mg BID ( 09/07/24) Level ordered She needs weight loss. Continue with Zepbound We will maximize angiotensin receptor blockade. -Keep losartan 100 mg. Continue with Farxiga. Discussed importance of weight loss. She should stay on a low-sodium diet (2) Hypertension: Code(s): I10 - Essential (primary) hypertension Category: Medical Plan: Blood pressure is better controlled Elevated today since she did not take her medications Continue with losartan (3) Obesity (BMI 30-39.9): Code(s): E66.9 - Obesity, unspecified Category: Medical Plan: On Zepbound The meantime encouraged her to increase physical activity and decreasing calorie intake Orders: Orders Basic Metabolic Panel 3 Months N18.32 - Chronic kidney disease, stage 3b Creatinine Urine 3 Months N18.32 - Chronic kidney disease, stage 3b UA and rflx microscopic 3 Months N18.32 - Chronic kidney disease, stage 3b Total Protein Urine Random 3 Months N18.32 - Chronic kidney disease, stage 3b Coding Level of Care Code Est Pt Level 4 (58908) Diagnoses Stage 3b chronic kidney disease N18.32 Chronic kidney disease stage 3 subtype: stage 3b (GFR 30-44) Hypertension I10 Obesity (BMI 30-39.9) E66.9
[2025-02-15 11:42] VITALS: BP 132/88; PULSE 56; O2SAT 97; BMI 31.9
--- OUTSIDE RECORDS SUMMARY | 2025-02-15 22:47 | XMS_ITS | Encounter Summary ---
Author Organization [facility] Address [address] [place] [address] Phone Care Team Providers Care Tinning Machine Set Up Operator Name Role Phone Daryn Duarte MD Primary Care Provider [phone] Encounter Details Date Type Department Care Team (Late st Contact Info) Description 11/19/2021 Telephone [facility] [address] [place] [phone] Mati Durbin MD Social History Tobacco Use [...] your suggestion. Please advise Thank you CB# [phone] Thank you documented in this encounter Plan of Treatment Not on file documented as of this encounter Visit Diagnoses Not on filedocumented in this encounter Care Teams Tinning Machine Set Up Operator Relationship Specialty Start Date End Date Daryn Duarte MD [address] [place] [address] [address] [place] [address] PCP - General 04/09/20 documented as of this encounter
--- OUTSIDE RECORDS SUMMARY | 2025-02-15 22:47 | XMS_ITS | Data Portability ---
Author Organization [place] - [facility], Allergy Address [address] [place] [phone] Assessment No assessment recorded. Plan of Treatment [...] Time Disorder of right Eustachia n tube [id number] 70852 Active 2019 Other specified disorders of Eustachia n tube, right ear; Note: Date Diagnosed : 04/13/2019 3:52 PM (H69.81) Not Available [facility] 4 02:31:20 Migraine without aura, not refractor y 443597095 Active 2019 Migraine without aura, not intractab le, without status migrainos us; Note: Date Diagnosed : 04/13/2019 3:52 PM (G43.009) Not Available [facility] 4 02:31:10 Otalgia of right ear 1657441325 Active 2019 Otalgia, right ear; Note: Date Diagnosed : 04/13/2019 3:52 PM (H92.01) Not Available [facility] 4 02:31:19 Temporoma ndibular joint disorder 73631316 Active 2019 Other specified disorders of temporoma ndibular joint; Note: Date Diagnosed : 04/13/2019 3:57 PM (M26.69) Not Available [facility] 4 02:31:12 Tinnitus of right ear 23454280307 08 Active 2019 Tinnitus, right ear; Note: Date Diagnosed : 04/13/2019 3:52 PM (H93.11) Not Available [facility] 4 02:31:24 Severe obesity 31645272319 104 Active 2019 Morbid (severe) obesity due to excess calories; Note: Date Diagnosed : 04/13/2019 3:52 PM (E66.01) [facility] Available [facility] 02:[facility]:11 Mass of neck 162769746 Active 2019 Localized swelling, mass and lump, neck; Note: Date Diagnosed : 06/09/2019 4:03 PM (R22.1) Not Available [facility] 4 02:31:13 Neck swelling 678518348 Active 2019 Localized swelling, mass and lump, neck; Note: Date Diagnosed : 06/09/2019 4:03 PM (R22.1) Not Available [facility] 4 02:31:13 Problem Notes None recorded. Medical Equipment None Reported. Allergies Allergen ID Allergen Name Allergen Category Reaction Reaction Severity Criticality Documentation Date Start Date Code Code System Note Provider Name and Address Organization Details Recorded Time 47924 morphine medicatio n other Not available Not available 08/11/2023 7052 RxNorm React ion: unkno wn, unspe cifie d;; Not Available [facility] 4 00:59:01 Medications Name Sig Start Date Stop Date Status Note LastModified by Organization Details LastModified Time losartan 50 mg tablet Take 1 tablet (50 mg total) by mouth in the morning and 1 tablet (50 mg total) in the evening. active Not Available Not Available No t Available furosemid e 40 mg tablet 2019 active Medicati on ID: [id number] D uration Value: 30 Brand Name: furosemi de Send Method: E-Prescr ibed Sub s Allowed: subs OK Speci al Instruct ion: TAKE ONE TABLET BY MOUTH ONCE DAILY Me dication GenericN zoe: furosemi de Not Available Not Available Not Available ranitidin e 300 mg tablet 2019 active Medicati on ID: [id number] D uration Value: 30 Brand Name: ranitidi ne HCl Send Method: E-Prescr ibed Sub s Allowed: subs OK Speci al Instruct ion: TAKE ONE TABLET BY MOUTH ONCE A DAY Medi cationGe nericNam e: ranitidi ne HCl Not Available Not Available Not Available sumatript an 100 mg tablet 2019 active Medicati on ID: [id number] D uration Value: 30 Brand Name: sumatrip [...] mg tablet 2020 active Medicati on ID: [id number] B rand Name: famotidi ne Send Method: [...] mg tablet 2019 active Medicati on ID: 850465 D uration Value: 30 Brand Name: amlodipi [...] mg tablet 2020 active Medicati on ID: [id number] B rand Name: dicyclom ine Send Method: [...] mg capsule 2020 active Medicati on ID: 274960 B rand Name: docusate sodium S end [...] nasal spray 2020 active Medicati on ID: 302643 B rand Name: ipratrop ium bromide Send [...] Available Senexon 2019 active Medicati on ID: [id number] D uration Value: 30 Brand Name: Senexon Send Method: E-Prescr ibed Sub s Allowed: subs OK Speci al Instruct ion: TAKE 2 TABLETS BY MOUTH ONCE A DAY AT BEDTIME NEEDED M ogvinnyo nGeneric Name: Senexon Not Available Not Available Not Available Doc-Q-Lac e 05/28 completed Medicati on ID: [id number] D uration Value: 30 Brand Name: Doc-Q-La [...] unit) capsule 2019 active Medicati on ID: [id number] D uration Value: 30 Brand Name: D3 Send Method: E-Prescr ibed Sub s Allowed: subs OK Speci al Instruct ion: TAKE ONE CAPSULE BY MOUTH DAILY Me dication GenericN zoe: D3-1999 Not Available Not Available Not Available Cerovite Senior 0.4 mg-300 mcg-250 mcg tablet 2019 active Medicati on ID: 424351 D uration Value: 30 Brand Name: Cerovite [...] mcg capsule 2019 active Medicati on ID: [id number] D uration Value: 30 Brand Name: Linzess Send Method: E-Prescr ibed Sub s Allowed: subs OK Speci al Instruct ion: TAKE ONE CAPSULE BY MOUTH ONCE A DAY ON EMPTY STOMACH Medicati onGeneri cName: Linzess Not Available Not Available Not Available Gemtesa 75 mg tablet TAKE 1 TABLET BY MOUTH ONCE DAILY active Not Available Not Available No t Available [facility] COVID-19 Antigen Rapid Home Test kit USE DIRECTED active Not Available Not Available No t Available Vitals Date Recorded Body height Body mass index (BMI) Body weight Provider Name and Address Organization Details Last Updated DateTime 09/28/2023 154.94 cm 38.4 kg/m2 33791.25 g Pati Daly [place] - [facility] 09/28/2023 13:08:36 Social History None recorded. Functional Status None recorded. Mental Status None recorded. Family History Nothing Reported. Medical History No medical history recorded. Gynecological HistoryNo gynecological history recorded. Obstetrics History GPAL:G 0 P 0 0 0 0 Past Encounters Encounter ID Performer Location Encounter Start Date Encounter Closed Date Diagnosis/Indication Diagnosis SNOMED-CT Code Diagnosis ICD10 Code Diagnosis IMO Codes Diagnosis Note [id number] JIMENA HERRERA MD [facility] [address] [phone] 09/28/2023 13:02:32 09/28/2023 17:08:11 Mass of neck [id number] R22.1 58-year-ol d female presents today for [...] Recorded Advance Directives Directive None Recorded Payers Insurance Date Sequence Insurance Name Policy Number Policy Ramsey Covered Member ID Ramsey Member ID Guarantor Name 10/07/2023 1 [facility] - DOS ON OR AFTER 2022 - ONE CARE (MEDICARE REPLACEMENT/ADV ANTAGE - HMO) Roxie Hobbs [id number] Roxie Hobbs Notes Date Note Type Note Provider Name and Address Organization Details Recorded Time 09/28/2023 text/html 58-year-old female presents today in follow-up after MRI. No [...] not recall having this. JIMENA HERRERA MD [address] [place] [address], [id number], [facility] - [facility] 10/07/2023 08:39:38 OBGyn Episode No OBEpisode recorded.
--- OUTSIDE RECORDS SUMMARY | 2025-02-15 22:47 | XMS_ITS | Clinical Summary ---
Author Organization [facility] Address [address] [place] [address] Phone Care Team Providers Care Environmental Technical Officer Name Role Phone Daryn Duarte MD Primary Care Provider [phone] Allergies Active Allergy Reactions Criticality Noted Date [...] on file Medical Devices Implanted Type Area Supervisor Research Kennel Device Identifier Shelf Expiration Date Model / Serial / Lot Clip Clip Right: Breast Mesh Mesh Insurance MEDICARE REPLACEMENT [place] [id number] MEDICARE REPLACEMENT MEDICARE [place]AC[place] [address] MEDICARE REPLACEMENT [facility] ONE CARE MEDICARE REPLACEMENT [place] [id number] Care Teams Environmental Technical Officer Relationship Specialty Start Date End Date Daryn Duarte MD [address] [place] [address] [place] [address] PCP - General Internal Medicine 10/20/19 Additional Source Comments The information contained in this document represents components of the legal health record. It is not the complete legal health record.[facility]
--- OUTSIDE RECORDS SUMMARY | 2025-02-15 22:47 | XMS_ITS | Clinical Summary ---
Author Organization [facility] Address [address] [place] [address] Phone Care Team Providers Care Log Manager Name Role Phone Daryn Duarte MD Primary Care Provider [phone] Allergies Active Allergy Reactions Criticality Noted Date [...] 2 Active Cholecalciferol (Vitamin D3) 250 MCG (27769 UT) tablet Take by mouth Activ e [...] (#1) 2024 Insurance ([id number]) ([id number]) Care Teams Log Manager Relationship Specialty Start Date End Date Daryn Duarte MD [address] [place] [address] PCP - General 04/09/20
--- OUTSIDE RECORDS SUMMARY | 2025-02-15 22:47 | XMS_ITS | Encounter Summary ---
Author Organization [facility] Address [address] [place] [address] Phone Care Team Providers Care Chief Dietitian Name Role Phone Daryn Duarte MD Primary Care Provider [phone] Encounter Details Date Type Department Care Team (Late st Contact Info) Description 10/27/2019 Procedure Pass [facility] [address] [place] [address] Social History Tobacco Use Types Packs/Day Years [...] on filedocumented in this encounter Care Teams Chief Dietitian Relationship Specialty Start Date End Date Daryn Duarte MD [address] [place] [address] [place] [address] PCP - General Internal Medicine 10/20/19 documented as of this encounter Additional Source Comments The information contained in this document represents components of the legal health record. It is not the complete legal health record.[facility]
--- OUTSIDE RECORDS SUMMARY | 2025-02-15 22:48 | XMS_ITS | Clinical Summary ---
Author Organization [facility] Address [address] [place] [address] Phone Care Team Providers Care [place] [employer] Member Name Role Phone Daryn Duarte MD Primary Care Provider [phone] Allergies Active Allergy Reactions Criticality Noted Date [...] tirzepatide, weight loss, (Zepbound) 12.5 mg/0.5 mL injectionIndica tions:Class 2 obesity due to excess calories with body mass index (BMI) of 35.0 to 35.9 in adult, unspecified whether serious comorbidity present Inject 0.5 mL (12.5 mg total) under the skin every 7 (seven) days. 2 mL 2 5 026 Active tirzepatide, weight loss, (Zepbound) 12.5 mg/0.5 mL injectionIndica tions:Class 2 obesity due to excess calories with body mass index (BMI) of 35.0 to 35.9 in adult, unspecified whether serious comorbidity present Inject 0.5 mL (12.5 mg total) under the skin every 7 (seven) days. 2 mL 2 5 025 Discontin ued(Reord er) Active Problems Problem Noted Date Diagnosed Date Class 1 obesity with serious comorbidity and body mass index (BMI) of 33.0 to 33.9 in adult 03/31/2024 Asthma 12/29/2023 CKD (chronic kidney disease) 12/29/2023 GERD (gastroesophageal reflux disease) HTN (hypertension) 12/29/2023 LEANNA (obstructive sleep apnea) 12/29/2023 Seizures (CMS/HCC V24, CMS/HCC V28) 12/29/2023 Encounters Date Type Department Care Team Description 01/16/2025 Telephone Bariatric Surgery [address] [phone] Tavon Galdamez MD 01/03/2025 8:30 AM EDT Nutrition Bariatric Surgery [address] [phone] Tammy Sands, SHIRA Class 1 obesity with serious comorbidity and body mass index (BMI) of 33.0 to 33.9 in adult, unspecified obesity type (Primary Dx) 12/17/2024 Telephone Bariatric Surgery [address] [phone] Tavon Galdamez MD from Last 3 Months [...] AM EST Office Visit Bariatric Surgery - [place] [address] [address] Tavon Galdamez MD [address] [place] [phone] 04/06/2025 12:30 PM EST Nutrition Bariatric Surgery - [place] [address] [address] Tammy Sands, RD [address] [address] Health Maintenance Due Date Last Done Comments Breast Cancer Screening 1966 Colorectal Cancer Screening: Colonoscopy 1966 Hepatitis B Vaccines (1 of 3 - 19+ 3-dose series) 1985 Zoster Vaccines (1 of 2) 1985 Cervical Cancer Screening: Pap Smear 1987 Pneumococcal Vaccine: 50+ Years (2 of 2 - PCV) 12/31/2007 12/30/2006 RSV Immunization Adult Patients (1 - Risk 50-74 years 1-dose series) 2016 DTaP,Tdap,and Td Vaccines (2 - Td or Tdap) 07/30/2021 07/31/2011 HIV Screening 03/02/2022 Hepatitis C Screening 03/02/2022 Medicare Annual Wellness Visit 03/02/2022 Social Influencers of Health Screening 03/02/2022 Depression Screening 03/30/2024 COVID-19 Vaccine ( season) 2024 03/14/2021, 07/31/2020, 07/10/2020 Influenza Vaccine (#1) 2024 4, 01/19/2023, 01/21/2022, Additional history exists Hypertension/CHF/CAD Annual [...] LAB CHEMISTRY METHOD 04/18/2024 10:22 AM EST [facility] Triglycerides 90 0 - 150 mg/dL LAB CHEMISTRY METHOD 04/18/2024 10:22 AM [facility] HDL 58 >=40 mg/dL LAB CHEMISTRY METHOD 04/18/2024 10:22 AM [facility] LDL Calculated 105(H) 0 - 100 mg/dL LAB CHEMISTRY METHOD 04/18/2024 10:22 AM [facility] VLDL Cholesterol Gerhard 18 mg/dL LAB CHEMISTRY METHOD 04/18/2024 10:22 AM [facility] Non HDL Chol. (LDL+VLDL) 123 <145 mg/dL LAB CHEMISTRY METHOD 04/18/2024 10:22 AM [facility] Chol/HDL Ratio 3.1 0.0 - 4.4 LAB CHEMISTRY METHOD 04/18/2024 10:22 AM [facility] Blood Venous blood specimen / Unknown Venipuncture / Unknown 04/18/2024 8:43 AM EST 04/18/2024 8:44 AM EST us Haydee Espinosa MD LAB BLOOD ORDERABLES Fi nal Result [facility] [address] [place] [address], * (ABNORMAL) Comprehensive metabolic panel (04/18/2024 8:43 AM EST) Sodium 140 133 - 145 mmol/L LAB CHEMISTRY METHOD 04/18/2024 10:22 AM [facility] Potassium 4.6 3.5 - 5.5 mmol/L LAB CHEMISTRY METHOD 04/18/2024 10:22 AM [facility] Chloride 106 96 - 110 mmol/L LAB CHEMISTRY METHOD 04/18/2024 10:22 AM [facility] CO2 30 21 - 32 mmol/L LAB CHEMISTRY METHOD 04/18/2024 10:22 AM [facility] Anion Gap 4 3 - 11 LAB CHEMISTRY METHOD 04/18/2024 10:22 AM [facility] Glucose 90 70 - 100 mg/dL LAB CHEMISTRY METHOD 04/18/2024 10:22 AM [facility] BUN 31(H) 5 - 25 mg/dL LAB CHEMISTRY METHOD 04/18/2024 10:22 AM [facility] Creatinine 2.11(H) 0.50 - 1.10 mg/dL LAB CHEMISTRY METHOD 04/18/2024 10:22 AM [facility] eGFR 27(L) >=60 mL/min/1. 73m2 LAB CHEMISTRY METHOD 04/18/2024 10:22 AM [facility] Comment:Calculation based on the Chronic Kidney Disease Epidemiology Collaboration (CKD-EPI) equation refit without adjustment for race. BUN/Creatinine Ratio 14.7 LAB CHEMISTRY METHOD 04/18/2024 10:22 AM [facility] Calcium 9.2 8.5 - 10.5 mg/dL LAB CHEMISTRY METHOD 04/18/2024 10:22 AM [facility] AST (SGOT) 18 10 - 42 unit/L LAB CHEMISTRY METHOD 04/18/2024 10:22 AM [facility] ALT (SGPT) 21 10 - 60 unit/L LAB CHEMISTRY METHOD 04/18/2024 10:22 AM [facility] Alkaline Phosphatase 112 42 - 121 unit/L LAB CHEMISTRY METHOD 04/18/2024 10:22 AM [facility] Total Protein 6.5 6.0 - 8.0 g/dL LAB CHEMISTRY METHOD 04/18/2024 10:22 AM [facility] Albumin 3.4 3.2 - 5.0 g/dL LAB CHEMISTRY METHOD 04/18/2024 10:22 AM [facility] Total Bilirubin 0.2 0.0 - 1.4 mg/dL LAB CHEMISTRY METHOD 04/18/2024 10:22 AM [facility] Blood Venous blood specimen / Unknown Venipuncture / Unknown 04/18/2024 8:43 AM EST 04/18/2024 8:44 AM EST Haydee Espinosa MD LAB BLOOD ORDERABLES Fi nal Result [facility] [address] [place] [address], from Last 3 Months or Most Recently Relevant to Health Maintenance Insurance [facility] MEDIC[facility] Member Subscriber Plan / Payer (Ef fective 2018-Present) Name:LIANET HOBBS Relation to Subscriber:Self Name:Lianet Hobbs I Payer ID:[id number] Group ID:[id number] Type:Not on file Address: [facility] [address] [phone] Care Teams [place] [employer] Member Relationship Specialty Start Date End Date Daryn Duarte MD [address] [place] [address] Dr Molina [facility] ABIGAIL Charles PCP - General Internal Medicine 05/21/17
--- OUTSIDE RECORDS SUMMARY | 2025-02-15 22:48 | XMS_ITS | Data Portability ---
Author Organization [place] - [facility], [facility] Address [address] [place] [address] Care Team Providers [employer] Counter Associate Name Role Phone KHADAR CARO Primary Care Provider Assessment Encounter Date Assessment Date Assessment LastModified by Organization Details LastModified Time 08/10/2024 08/10/2024 A/ s/p R 1st DCR 06/30/24, doing well P/she will continue to increase her activities as tolerated and will follow-up for this problem on an as-needed basis. [email or web address] Not available 08/10/2024 13:42:19 Plan of Treatment Reminders Order Date Submit Date Provider Last Modified By Organization Details Last Modified Time Details Appointments None recorde d. Lab None recorde d. Referral None recorde d. Procedures None recorde d. Surgeries None recorde d. Imaging XR, wrist, 3 or more view - rm 112 r wrist 3v 025 025 [email or web address] [facility], [address], [place], [address], 5 15:55:45 XR, wrist, 3 or more view - RM 111 R WRIST EV 024 024 ame [facility], [address], [place], [address], 4 14:48:40 XR, wrist, 3 or more view - rm 111 cast off 1st then xr r wrist 3v 024 024 ame [facility], [address], [address], [place], [address], 14:38:59 Medication Orders None recorde d. Patient TargetsNo targets recorded. Patient Instructions Encounter Date Encounter Id Patient Instructions Last Modified By Organization Details Last Modified Time 01/15/2024 [id number] cast removal* - em 111 cast off then xr [email or web address] Not available 01/15/2024 11:52:58 Reason for Referral None Reported. Results Created Date Observation Date Name Description Value Unit Range Abnormal Flag Note LastModifiedBy Organization Detail LastModifiedTime 06/16/1906/16/2024 CREAT ININE creatinine 2.05 mg/dL 0.57-1 .00 above high normal Not Available [facility] ([facility]) [address] [facility], [place], [address], 06/16/2024 06:19:42 12/31/1912/31/2023 XR, wrist , 3 or more view [email or web address] ?Encry pted=s hAaTro YD8dLq bEUv6g %2BXZw aYqtaq 0bqfl% 2Fg9IQ a4ajBk vP9nXo QUaueC m3YtLR FvZlgJ JJ8mAn HZtai3 4a5908 AC0Kqa 3%2BHV auiKiQ trMwF INTERFACE [facility] [address], [place], [address], 12/31/2023 14:25:50 12/31/19 24 12/31/2023 XR, wrist , 3 or more view [email or web address] ?Encry pted=s hAaTro YD8dLq bEUv6g %2BXZw aYqtaq 0bqfl% 2Fg9IQ a4ajBk vP9nXo QUaueC m3YtLR FvZlgJ JJ8mAn HZtai3 9k8511 AC0Kqa 3%2BHV auiKiQ trMwF INTERFACE [facility] [address], [place], [address], 12/31/2023 14:25:52 01/15/2001/15/2024 XR, wrist , 3 or more view [email or web address] ?Encry pted=s hAaTro YD8dLq bEUv6g %2BXZw aYqtaq 0bqfl% 2Fg9IQ a4ajBk vP9nXo QUaueC m3YtLR FvZlJ [facility] HZtai3 7u3286 AC0Kqa 3WGU6O uKiQtr MwF INTERFACE [facility] [address] [facility] [address], [place], [address], 01/15/2024 11:29:06 01/15/20 24 01/15/2024 XR, wrist , 3 or more view [email or web address] ?Encry pted=s hAaTro YD8dLq bEUv6g %2BXZw aYqtaq 0bqfl% 2Fg9IQ a4ajBk vP9nXo QUaueC m3YtLR FvZl J8Douglass HZtai3 9m4775 AC0Kqa 3WGU6O uKiQtr MwF INTERFACE [facility] [address] [place] [address], [place], [address], 01/15/2024 11:29:08 02/18/20 24 02/18/2024 XR, wrist , 3 or more view [email or web address] ?Encry pted=s hAaTro YD8dLq bEUv6g %2BXZw aYqtaq 0bqfl% 2Fg9IQ a4ajBk vP9nXo QUaueC m3YtLR FvZlgJ JJ8mAn HZtai3 0q4080 AC0Kqa X6HWKa lKiQtr MwF INTERFACE [facility] [address] [facility] [address], [place], [address], 02/18/2024 14:41:30 02/18/20 24 02/18/2024 XR, wrist , 3 or more view [email or web address] ?Encry pted=s hAaTro YD8dLq bEUv6g %2BXZw aYqtaq 0bqfl% 2Fg9IQ a4ajBk vP9nXo QUaueC m3YtLR FvZlgJ JJ8Douglass HZtai3 8o2942 AC0Kqa X6HWKa lKiQtr MwF INTERFACE [facility] [address] [facility] [address], [place], [address], 02/18/2024 14:41:32 06/03/19 25 06/02/2024 XR, wrist , 3 or more view [email or web address] ?Encry pted=s hAaTro YD8dLq bEUv6g %2BXZw aYqtaq 0bqfl% 2Fg9IQ a4ajBk vP9nXo QUaueC m3YtLR FvZlgJ JJ8mAn HZtai3 9b6926 AC0Kqb XWDUKe gKiQtr MwF INTERFACE [facility] [address] [facility] [address] [address], [place], [address], 06/02/2024 14:26:16 06/03/19 25 06/02/2024 XR, wrist , 3 or more view [email or web address] ?Encry pted=s hAaTro YD8dLq bEUv6g %2BXZw aYqtaq 0bqfl% 2Fg9IQ a4ajBk vP9nXo QUaueC m3YtLR FvZlgJ JJ8mAn HZtai3 6n3500 AC0Kqb XWDUKe gKiQtr MwF INTERFACE [facility] [address] [facility] [address] [address], [place], [address], 06/02/2024 14:26:18 Result Notes Documentation Provider Name and Address Organization Details Recorded Time Xr, Wrist, 3 Or More View : [email or web address] Encrypted=uuZrEqvMF3rJtpB Uv6g%7RZLriMriei4bqqr%2Fg 9MFt9txZjtW4rGlVPvaaDt5Vf BJOlBtxXYY5kFmROldr33m494 9XC3Sho8CZH9UkVsHalAyT Not Available [facility] 01/15/2024 11:29: 06 Xr, Wrist, 3 Or More View : [email or web address] Encrypted=qjLrVwzIZ5rVoqL Uv6g%3SIKdjLwijc9xsyp%2Fg 4UGq1iuLkpW0lJnQInczNe4Ee JAAhIhqMVX0aNsKJzpa65x717 3VP4Dpn4HJE3MpTjOolDoA Not Available [facility] 01/15/2024 11:29: 08 Xr, Wrist, 3 Or More View : [email or web address] Encrypted=axRvLihZD7nTxaM Uv6g%4OFQipVyanv2kxtk%2Fg 2XOc2jbEfwD2fWwWVlpxJw9Wz LPWgPspWKI0uBmZNbyk35x867 5QS2AecZ2YWFntNdQraTsD Not Available [facility] 02/18/2024 14:41: 31 Xr, Wrist, 3 Or More View : [email or web address] Encrypted=hmCoGfsGQ1rDjpL Uv6g%5CCAafHerjr2gpez%2Fg 9YQn8dfBczH9kMgPFxkcTc8Kx TKBkCbsSWV0bNrXCwxl98v260 3RL8OyeE6XNCpoHgSnuEvN Not Available [facility] 02/18/2024 14:41: 33 Xr, Wrist, 3 Or More View : [email or web address] Encrypted=uvCcUogCO2yEkhI Uv6g%7TLDioZoswn1johs%2Fg 5GPr1owFdtS4qDoXRihkZr5Zm FGUdAkiZUY0mIdFYunn98x288 8SL3VweKHEZWtgVeUgdVfK Not Available [facility] 06/02/2024 14:26: 17 Xr, Wrist, 3 Or More View : [email or web address] Encrypted=pfQhDyhAZ3sRpfK Uv6g%9CKPepYryuf7evoj%2Fg 2KCq2smVlsT6vKpZKqjbUo9Wt XLPaWnmFEP3uAjBEgiy79k955 8VA6NubZVJAKgyLeLetLwH Not Available [facility] 06/02/2024 14:26: 18 Problems Name Problem SNOMED Code Status Onset Date Resolution Date Notes Provider Name and Address Organization Details Recorded Time No complaints 016226974 Active Status : 'I'; Not Available [facility] 4 09:14:49 Pain of right wrist 9697433171824 00 Active 2023 Mihaela Barahona, LOAN ANALYST [address], [place], [address] , [facility] 4 11:42:02 Problem Notes None recorded. Procedures Surgical History Date Name Laterality Status Provider Name and Address Organization Details Recorded Time DEQUERVAIN'S RELEASE (SURG) completed TERESO GREGORY [facility] 06/30/2024 16:24:11 Imaging Results None recorded. Procedure Notes None recorded. Medical Equipment None Reported. Allergies Allergen ID Allergen Name Allergen Category Reaction Reaction Severity Criticality Documentation Date Start Date Code Code System Note Provider Name and Address Organization Details Recorded Time 41858 latex environme nt,medica tion Not available Not available Not available 06/01/20232014 51987 91 RxNorm Aller gyRea ction : 'Skin React ion'; Not Available [facility] 4 14:14:12 85974 Dilaudid medicatio n Not available Not available Not available 06/01/20232012 96343 3 RxNorm Not Available [facility] 4 14:14:12 Medications Name Sig Start Date Stop Date Status Note LastModified by Organization Details LastModified Time vit d3 25 mcg (1000 iu) tabs TAKE 1 TABLET BY MOUTH ONCE DAILY active Not Available Not Available No t Available losartan 50 mg tablet Take 1 tablet (50 mg total) by mouth in the morning and 1 tablet (50 mg total) in the evening. active Not Available Not Available No t Available senna 8.6 mg tablet TAKE 2 TABLETS BY MOUTH ONCE DAILY AT BEDTIME active Not Available Not Available No t Available rizatriptan 10 mg tablet TAKE ONE TABLET BY MOUTH DAILY NEEDED FOR MIGRAINE HEADACHE. MAY REPEAT DOSE ONCE IN 2 HOURS active Not Available Not Available N ot Available amlodipine 5 mg tablet Take 1 tablet (5 mg total) by mouth 1 (one) time each day active Not Available Not Available No t Available acetaminophen 500 mg tablet TAKE 2 TABLETS BY MOUTH 3 (THREE) TIMES A DAY NEEDED FOR FEVER active Not Available Not Available No t Available triamcinolone acetonide 0.1 % topical cream APPLY TO THE AFFECTED AREA two (2) times a day active Not Available Not Available No t Available magnesium oxide 400 mg (241.3 mg magnesium) tablet TAKE 1 TABLET BY MOUTH ONCE DAILY active Not Available Not Available No t Available amitriptyline 10 mg tablet TAKE 1 TABLET BY MOUTH ONCE DAILY WITH SUPPER active Not Available Not Available No t Available amlodipine 10 mg tablet TAKE 1 TABLET BY MOUTH ONCE DAILY active Not Available Not Available No t Available cephalexin 500 mg capsule TAKE 1 CAPSULE BY MOUTH two (2) times a day active Not Available Not Available No t Available pseudoephedri ne-guaifenesi n ER 80-700 mg tablet,extend ed release 1-2 q4-6 hrs prn pain 2012 active Statu s: 'Curr ent'; Not Available Not Available Not Available nystatin 100,000 unit/gram topical cream APPLY TO THE AFFECTED AREA TOPICALLY two (2) times a day NEEDED FOR RASH active Not Available Not Available No t Available lansoprazole 30 mg capsule,delay ed release TAKE 1 CAPSULE BY MOUTH ONCE DAILY active Not Available Not Available No t Available furosemide 20 mg tablet TAKE 1 TABLET BY MOUTH ONCE DAILY active Not Available Not Available No t Available albuterol sulfate HFA 90 mcg/actuation aerosol inhaler INHALE 2 PUFFS BY MOUTH INTO THE lungs EVERY 4 HOURS NEEDED FOR WHEEZING active Not Available Not Available No t Available ferrous sulfate 325 mg (65 mg iron) tablet,delaye d release Take 1 tablet (325 mg total) by mouth 3 (three) times a day with meals. Do not crush, chew, or split. active Not Available Not Available No t Available losartan 100 mg tablet TAKE 1 TABLET BY MOUTH ONCE DAILY active Not Available Not Available No t Available amoxicillin 875 mg-potassium clavulanate 125 mg tablet TAKE 1 TABLET BY MOUTH two (2) times a day FOR otitis media IN RIGHT IN THE AFFECTED EAR FOR 10 DAYS active Not Available Not Available No t Available oxycodone 5 mg tablet TAKE 1 TABLET BY MOUTH EVERY 6 HOURS NEEDED FOR PAIN active Not Available Not Available No t Available Vitamin D3 25 mcg (1,000 unit) tablet TAKE 1 TABLET BY MOUTH ONCE DAILY active Not Available Not Available No t Available topiramate 50 mg tablet TAKE 2 TABLETS BY MOUTH IN THE MORNING and TAKE 3 TABLETS IN THE EVENING active Not Available Not Available No t Available Gas Relief Extra Strength 125 mg chewable tablet TAKE 1 CAPSULE BY MOUTH 4 (FOUR) TIMES DAILY NEEDED FOR ABDOMINAL PAIN active Not Available Not Available No t Available budesonide-fo rmoterol HFA 160 mcg-4.5 mcg/actuation aerosol inhaler INHALE 2 PUFFS BY MOUTH INTO THE lungs two (2) times a day active Not Available Not Available No t Available trospium ER 60 mg capsule,exten ded release 24 hr TAKE 1 CAPSULE BY MOUTH ONCE DAILY IN THE MORNING active Not Available Not Available No t Available diclofenac 1 % topical gel APPLY 2 grams TOPICALLY 4 (FOUR) TIMES DAILY NEEDED FOR PAIN active Not Available Not Available No t Available Linzess 145 mcg capsule TAKE 1 CAPSULE BY MOUTH EVERY MORNING active Not Available Not Available No t Available Farxiga 10 mg tablet TAKE 1 TABLET BY MOUTH ONCE DAILY active Not Available Not Available No t Available Gemtesa 75 mg tablet TAKE 1 TABLET BY MOUTH ONCE DAILY active Not Available Not Available No t Available [facility] COVID-19 Antigen Rapid Home Test kit USE DIRECTED active Not Available Not Available No t Available Zepbound 5 mg/0.5 mL subcutaneous pen injector INJECT THE CONTENT OF 1 syringe UNDER THE SKIN EVERY 7 DAYS active Not Available Not Available No t Available Zepbound 2.5 mg/0.5 mL subcutaneous pen injector INJECT THE CONTENT OF 1 pen UNDER THE SKIN EVERY 7 DAYS active Not Available Not Available No t Available Vitals Date Recorded Body height Body mass index (BMI) Body weight Provider Name and Address Organization Details Last Updated DateTime 06/02/2024 154.94 cm 37.8 kg/m2 26231.47 g [facility] 06/02/2024 14:17:35 Date Recorded Body height Body mass index (BMI) Body weight Provider Name and Address Organization Details Last Updated DateTime 08/10/2024 154.94 cm 35.7 kg/m2 05663.96 g ARSH ADILSON [facility] 08/10/2024 13:19:57 Date Recorded Body height Body mass index (BMI) Body weight Provider Name and Address Organization Details Last Updated DateTime 01/15/2024 154.94 cm 37.8 kg/m2 67020.47 g nay conroy [facility] 01/15/2024 11:16:10 Date Recorded Body height Body mass index (BMI) Body weight Provider Name and Address Organization Details Last Updated DateTime 02/18/2024 154.94 cm 37.8 kg/m2 76631.47 g KHLOE [facility] 02/18/2024 14:34:09 Social History None recorded. Functional Status None recorded. Mental Status None recorded. Family History Nothing Reported. Medical History No medical history recorded. Gynecological HistoryNo gynecological history recorded. Obstetrics History GPAL:G 0 P 0 0 0 0 Past Encounters Encounter ID Performer Location Encounter Start Date Encounter Closed Date Diagnosis/Indication Diagnosis SNOMED-CT Code Diagnosis ICD10 Code Diagnosis IMO Codes Diagnosis Note [id number] Mihaela Barahona CNP [facility] [address] [place] [address] 11/10/2023 10:41:53 12/01/2023 09:42:16 Pain of right wrist 8299293305 16692 M25.304 [id number] Mihaela Barahona CNP [facility] [address] [place] [address] 11/25/2023 13:11:38 12/10/2023 14:07:01 Pain of right wrist 6258066972 70480 M25.638 [id number] Mihaela Barahona, SHASTA [facility] [address] [place] [address] 12/10/2023 14:13:49 12/23/2023 10:20:09 Pain of right wrist 2566565612 85367 M25.754 [id number] Mihaela Barahona, LOAN ANALYST [facility] [address] [place] [address] 12/31/2023 13:29:43 01/15/2024 13:37:25 Pain of right wrist 0523316071 56352 M25.531 Pain of josemanuel int of wrist 966477840 M25.539 Wrist join t painful on movement 687818255 M25.469 [id number] Mihaela Barahona CNP [facility] [address] [place] [address] 01/15/2024 10:50:18 02/03/2024 14:38:59 Pain of right wrist 3769461688 16995 M25.531 353422 Pain of wrist region 566 32134 M25.531 [id number] Closed fra cture of distal end of radius 70749966 S52.591D [id number] Mihaela Barahona CNP [facility] [address] [place] [address] 02/18/2024 14:09:45 03/08/2024 14:48:40 Pain of right wrist 4591501030 74961 M25.531 [id number] Mihaela Barahona, LOAN ANALYST [facility] [address] [place] [address] 06/02/2024 14:07:33 06/20/2024 14:52:37 Pain of right wrist 9794272014 95872 M25.531 [id number] Divya Hoang, OTR/L,CHT [facility] - [facility] [address] [place] [address] 07/13/2024 14:03:10 07/13/2024 14:29:41 Tenosynovitis of right radial styloid 3051802752 3118891 M65.4 [id number] This visit was completed today under the supervisio n of Dr. Kyle wiggins. Examinatio n: Upon removal of the postop dressing, the incision is inspected. It is found to be clean and dry with an intact running suture with tails and Steri-Stri ps. Patient has intact neurovascu lar structures with only slight tenderness along the sides of the incision. No surroundin g erythema, wound drainage, warmth or signs of infection. There is typical slight palpable postoperat christina edema just surroundin g the incision. The patient states only slight radial forearm proximal muscle pain. Active range of motion is limited as expected however the patient is able to show midrange of wrist and thumb active range of motion and does have full motion of the digits with full sensation throughout the hand. Impression : 14 days status post left first dorsal compartmen t release Postoperative visit 8826 56680 Z48.89 [id number] Plan: Surgical dressing is removed and the suture tails are clipped as well as the Steri-Stri ps are removed. Scar massage was instructed with a handout given to the patient today. Home exercises focusing on gentle wrist and thumb active range of motion were also reviewed. Patient is provided with a Velcro wrist and thumb immobiliza tion orthosis to provide support and stability to the radial wrist and thumb. This orthosis may be worn in the community or during certain activities or at night to help provide some stability to her thumb. Today dressing is simply a Large Band-Aid and a cotton stockinett e cover. The patient is given the following instructio ns:you may start to use the hand functional ly for light activities but to avoid any lifting or pinching at this time; do not to lift anything heavier than a coffee cup with the involved extremity; remain non weight bearing on the involved upper extremity; continue participat ing in active range of motion exercises without straining for the next 4 weeks. If any redness, swelling, drainage or do appear from the incision site, the patient was instructed to call us immediatel y. At the next appointmen t the patient will meet with the surgeon at 6 weeks postop. [id number] MD [facility] [address] [facility] [place] [address] 08/10/2024 12:59:43 08/12/2024 13:31:02 Radial styloid tenosynovitis 01391608 M65.4 [id number] Health Concerns Section Related Observation LastModified by Organization Detai ls LastModified Time None Recorded Concern Status LastModified by Organization Details LastModified Time None Recorded Advance Directives Directive None Recorded Payers Insurance Date Sequence Insurance Name Policy Number Policy Ramsey Covered Member ID Ramsey Member ID Guarantor Name 08/10/2024 1 [facility] - DOS ON OR AFTER 2022 - ONE CARE (MEDICARE REPLACEMENT/ADV ANTAGE - HMO) Roxie Hobbs [id number] Roxie Hobbs Notes Date Note Type Note Provider Name and Address Organization Details Recorded Time 01/15/2024 text/html ROS as noted in the HPI Roxie is a 58-year-old female who had a fall at home. She sustained a distal radius fracture on the right. Date of injury November 02, 2023. She was placed in a short arm cast at her last visit. She presents today for follow-up. she is seen today under the supervision of Dr. Arias who was available but did not see the patient today Mihaela Barahona CNP [address], [place], [address], [facility] 01/15/2024 12:00:27 02/18/2024 text/html ROS as noted in the HPI Roxie is a 58-year-old female who had a fall at home. She sustained a distal radius fracture on the right. Date of injury November 02, 2023. She was initially treated in a short arm cast transition to a removable splint she has been working with therapy on range of motion exercises she is now out of the splint and making progress with therapy. Mihaela Barahona CNP [address] [facility] [address], [place], [address], [facility] 02/18/2024 15:28:43 06/02/2024 text/html ROS as noted in the HPI Roxie is a 58-year-old female who had a fall at home. She sustained a distal radius fracture on the right. Date of injury November 02, 2023. She was treated in a cast transition to a removable wrist splint went on to return to normal activities but has developed radial sided wrist pain significant pain with attempts at ulnar deviation. She reports significant difficulties with her normal activities of daily living due to the discomfort she has had no neurovascular changes. Mihaela Barahona, LOAN ANALYST [email or web address], [place], [address], [facility] 06/02/2024 15:47:18 07/13/2024 text/html This is a 59-year-old woman who had the first dorsal compartment released on 06/30/[address] Burkett. This is a subsequent diagnosis following a distal radius fracture in October 2023. Intraoperatively a subsheath and significant tenosynovium was discovered. She has been immobilized for 2 weeks and presents to the office today for a dressing change wound care and a Velcro wrist immobilization orthosis. Will also initiate a home program that she will work on over the next 4 weeks and then return to the office today with a doctor at 6 weeks postop Divya Hoang, BROOKER/L,CHT [address], [place], [address], [facility] 07/13/2024 14:29:36 08/10/2024 text/html ROS as noted in the HPI 59 yo female seen for post op eval s/p R 1st DCR 06/30/24. She is doing well. Kusum Burkett MD [address], [place], [address], [facility] 08/10/2024 13:42:52 OBGyn Episode No OBEpisode recorded.
== END 2025-02-15 11:57 | disposition home or self-care (01) ==
LOC: HO.HKAS 11:39
PROVIDERS: PCP Internal Medicine; Visit Provider Internal Medicine Hypertension Specialist
DX: N18.32 Chronic kidney disease, stage 3b (principal); I10 Essential (primary) hypertension; E66.9 Obesity, unspecified
CPT/HCPCS: 99214

== ENCOUNTER → 2025-02-15 11:39 | Outpatient (BNVA) | payer OTHER, SELFPAY | PROVIDERS: PCP Internal Medicine; Visit Provider Internal Medicine Hypertension Specialist | DX: N18.32 Chronic kidney disease, stage 3b (principal); I10 Essential (primary) hypertension; E66.9 Obesity, unspecified | CPT/HCPCS: 99212 ==

== ENCOUNTER 2025-03-08 11:10 | Outpatient (REF) | payer OTHER, SELFPAY ==
[2025-03-08 12:14] LABS: MANUAL DIFF FLAG NO
[2025-03-08 12:50] LABS: Appearance Urine Clear; Glucose Urine UA Negative (Negative); PH 5.5 (5.0-9.0); Specific Gravity - Urine 1.015 (1.005-1.025); UMIC TRIGGER UACC YES
[2025-03-08 12:50] LABS: Hematocrit 43.7 % (37.0-47.0); Hemoglobin 14.1 g/dl (12.0-16.0); Imm Gran Abs Auto 0.02 X10*3/uL (0.00-0.03); Imm Gran Pct Auto 0.4 % (0.0-0.4); Lymphocytes Absolute Auto 1.2 X10*3/uL (1.2-4.9); Mean Corpuscular HGB Conc 32.3 g/dl (31.0-35.0); Mean Corpuscular Hemoglobin 29.7 pg (27.0-33.0); Mean Corpuscular Volume 92.0 fL (80.0-98.0); NRBC Abs Auto 0.000 X10*3/uL (0.0-0.012); NRBC Pct Auto 0.0 /100WBC (0.0-0.2); Platelet Count 158 X10*3/uL (160-400); Red Blood Count 4.75 X10*6/uL (4.20-5.50); White Blood Count 5.6 X10*3/uL (4.8-10.8)
[2025-03-08 13:53] LABS: Alanine Aminotransferase 37 U/L (0-31); Albumin Level 4.5 g/dL (3.5-5.0); Alkaline Phosphatase 107 U/L (39-117); Anion Gap 11 (12-20); Aspartate Amino Transferase 39 U/L (5-31); Blood Urea Nitrogen 34 mg/dL (9-16); Calcium 9.6 mg/dL (8.4-10.2); Carbon Dioxide 29 mmol/L (22-29); Chloride 107 mmol/L (96-108); Cholesterol 173 mg/dL (<200); Estimated Glomerular Filt Rate 18; HDL Cholesterol 51 mg/dL (>40); Potassium 4.9 mmol/L (3.3-5.1); Sodium 142 mmol/L (135-145); Total Protein 7.4 g/dL (6.5-8.0); Triglycerides 69 mg/dL (<150)
[2025-03-08 13:59] LABS: Free T4 (Free Thyroxine) 1.21 ng/dL (0.71-1.85); Thyroid Stimulating Hormone 2.14 uIU/mL (0.32-4.0)
[2025-03-08 14:08] LABS: Microalbum/Creatinine Ratio Ur 489.0 ug/mg cr (<30)
[2025-03-08 14:16] LABS: Folate 12.2 ng/mL (> or = 4.0); Vitamin B12 253 pg/mL (200-900)
[2025-03-08 17:33] LABS: Resp Syncy Virus RNA Qual PCR NEGATIVE (Negative); SARS COV2 PCR INHOUSE NEGATIVE (Negative)
== END 2025-03-08 11:11 | disposition home or self-care (01) ==
LOC: HO.LAB 11:10
PROVIDERS: Student in an Organized Health Care Education/Training Program; Absent Provider Internal Medicine; PCP Internal Medicine; Visit Provider Nurse Practitioner
DX: J06.9 Acute upper respiratory infection, unspecified (principal); R79.89 Other specified abnormal findings of blood chemistry; E78.00 Pure hypercholesterolemia, unspecified; D64.9 Anemia, unspecified; N05.1 Unspecified nephritic syndrome with focal and segmental glomerular lesions; E11.9 Type 2 diabetes mellitus without complications; E53.8 Deficiency of other specified B group vitamins; E55.9 Vitamin D deficiency, unspecified
CPT/HCPCS: 36415; 80053; 80061; 81001; 82043; 82306; 82570; 82607; 82746; 83036; 84439; 84443; 85025; 87637; 99212

== ENCOUNTER 2025-03-08 11:10 | Outpatient (AMB) | payer OTHER, SELFPAY ==
--- NOTE | 2025-03-08 11:17 | MHC.OFFVIS ---
Vital Signs 03/08/25 11:18 Height 5 ft 1 in Weight 164 lb BMI 31.0 BP 112/79 Blood Pressure Location Lt brachial Position Sitting Pulse 86 Intake Visit Reasons: 8 week follow up Intake Note: Patient in office today in follow up of constipation. CC: Patient c/o constipation. Denies other GI concerns today. [employer] Equipment Required: No Accompanied by: Self / Same As Patient Allergies diphenhydramine (From Benadryl) Allergy (Severe, Verified 03/08/25 11:25) Angioedema hydromorphone (From Dilaudid) Allergy (Intermediate, Verified 03/08/25 11:25) Increased BP FRANK Inhibitors (FRANK INHIBITORS) Allergy (Unknown, Verified 03/08/25 11:25) PER H&P codeine Allergy (Unknown, Verified 03/08/25 11:25) Rash meperidine Allergy (Unknown, Verified 03/08/25 11:25) Rash morphine Allergy (Unknown, Verified 03/08/25 11:25) RASH, DIFF BREATHING,CHEST PRESSURE, throat swelling TAPE,PLASTIC Allergy (Unknown, Uncoded 11/15/24 11:43) Rash HPI HPI 8 week follow up: Details: Assessment & Plan (1) Chronic idiopathic constipation: Code(s): K59.04 - Chronic idiopathic constipation Category: Medical (2) GERD (gastroesophageal reflux disease): Comment: Stage 3CKD trying to get lansoprazole to accommodate this. She had a metallic side effect from famotidine/H2 medications Code(s): K21.9 - Gastro-esophageal reflux disease without esophagitis Category: Medical (3) Roach's esophagus: Comment: 2022 scope= negative biopsy; EGD 2018 Code(s): K22.70 - Roach's esophagus without dysplasia Category: Medical Qualifiers: Roach's esophagus type: without dysplasia Qualified Code(s): K22.70 - Roach's esophagus without dysplasia Plan She continues on lansoprazole once a day, simethicone, senna, magnesium, and Linzess 290 micro g. Despite us increasing the Linzess she says that she still has episodes of bloating. However, with conversation she is not taking the Linzess every day because she is fearful of having to move her bowels when she is out and about during appointments. She denies it giving her diarrhea per se, it is just that she has a 1 rapid onset of bowel movement with a slightly unpredictable onset of timing. Because of this I suggest she switch her dosing to just before supper to see if this gives her better control without interfering with her life. I do not want her to take it too late because we do not want to interrupt her sleep. We will see how she does with this before we decide if she needs any further interventions or investigations. The bloating is confined to the upper abdomen which is interesting. Return office visit in 8 weeks TODAY'S VISIT [facility]LY [facility] Medical History Annual physical exam Edema Benign essential hypertension FSGS (focal segmental glomerulosclerosis) Family history of colonic polyps Left-sided low back pain with sciatica Mid back pain on right side Left hip pain Back pain Abdominal cramping Right lateral abdominal pain Right flank pain Pre-op examination LEANNA treated with BiPAP RLQ abdominal tenderness Right flank pain Left elbow pain Left shoulder pain Urinary incontinence Breast calcification, right Chronic renal insufficiency Asthma Migraine Normal colonoscopy (~12/25/16) Obstructive sleep apnea Diverticulitis Vitamin D deficiency Hypertension Surgical History History of surgery on wrist History of biopsy History of facial surgery History of carpal tunnel repair History of nasal surgery History of ankle surgery (~2012) History of cryosurgery History of pubovaginal sling Hx of hernia repair History of bilateral tubal ligation Hx laparoscopic cholecystectomy (~2001) History of esophagogastroduodenoscopy Hx of colonoscopy Family History Mother High blood pressure Diabetes Arthritis Father Diabetes Kidney disease Heart disease Brother Diabetes Maternal Aunt Cancer of breast Brother Colon cancer, Onset Age: 57 Maternal Grandmother Cancer of breast Social History Household Members: None Housing: Apartment Alcohol intake: current Alcohol intake frequency: a few times a month Alcohol type: wine and hard liquor Patient Tobacco Use Status: Former Tobacco user Tobacco use type: Cigarette Years Smoked: 7 e-Cigarette/Vaping Use: Never Used Second Hand Smoke Exposure: No service: No Current occupational status: disabled Current occupational exposures/hazards: No Cognitive needs: No Hearing needs: No Vision needs: Yes Female Reproductive History Menstrual Age of Menarche: 13 Review of Systems Const Reports fatigue, Denies fever(s), Reports headache(s), Reports malaise, Denies night sweats, Denies poor appetite and Denies weight loss ENT Reports Normal hearing present, Denies dysphagia, Reports headache(s), Reports nasal congestion, Reports nasal discharge, Denies odynophagia, Reports sinus pressure, Denies throat swelling and Denies tongue swelling Card Reports no additional complaints Resp Reports no additional complaints GI Details: Denies abdominal pain, Denies melena, Denies bloating, Denies hematochezia, Reports constipation, Denies GI cramping, Denies dysphagia, Denies excessive flatus, Denies early satiety, Reports heartburn, Denies diarrhea, Denies nausea, Denies odynophagia, Denies vomiting and Denies hematemesis Skin/Breast Denies pruritus, Denies lesions, Denies rash and Denies jaundice Neuro Reports Normal hearing present, Denies Abnormal speech present and Reports headache(s) Endo Reports fatigue Aller/Immun Denies throat swelling and Denies tongue swelling Physical Exam Vital Signs: Last Vital Signs Pulse 86 03/08/25 11:18 BP 112/79 03/08/25 11:18 BMI result Body Mass Index 31.0 Const Other: Patient is wearing a surgical mask General: cooperative, well developed, ill appearing (Mild sniffling and nasal/sinus congestion) acutely and well groomed Nutritional Appearance: well nourished and obese Orientation/consciousness: oriented to person, oriented to place and oriented to time Limitations: No language barrier and wheelchair HEENT Head: Yes normocephalic and Yes atraumatic General nose exam: Nasal discharge present clear Eyes General: appearance normal, both eyes and all related structures Pupils: Equal, round and reactive pupils present Neck Neck: Yes normal visual inspection and Yes no lymphadenopathy Thyroid: Thyroid normal Resp Effort & Inspection: normal respiratory effort and able to speak in complete sentences GI Inspection: No distended, Yes Abdominal panniculus present and Yes obesity Palpation (GI): Soft to palpation, nontender, no guarding, not rigid and No hepatosplenomegaly present Percussion: Yes normal to percussion Auscultation: normal bowel sounds Rectal Exam - Female: deferred Skin General skin exam: no rashes or lesions noted, turgor normal, skin not dry, no jaundice, No spider nevi and no striae Rashes: no rashes Nails: normal Neuro General: oriented to person, oriented to place and oriented to time Cranial nerves: Yes Equal, round and reactive pupils present and Yes Normal hearing present Speech: No Abnormal speech present Extrem General: Yes normal to inspection, No clubbing, No cyanosis and No edema Psych Appearance: grossly normal and well kempt Mental Status: mental status grossly normal Speech and movement: Normal speech and movement present Affect: normal affect Attitude: cooperative Thought process: Normal thought process present and not confabulating Thought content: Normal thought content present Insight: Good insight present (Psych) Judgement: Good judgement present (Psych) Assessment & Plan Assessment & Plan (1) Chronic idiopathic constipation: Code(s): K59.04 - Chronic idiopathic constipation Category: Medical (2) GERD (gastroesophageal reflux disease): Comment: Stage 3CKD trying to get lansoprazole to accommodate this. She had a metallic side effect from famotidine/H2 medications Code(s): K21.9 - Gastro-esophageal reflux disease without esophagitis Category: Medical (3) Roach's esophagus: Comment: 2022 scope= negative biopsy; EGD 2018 Code(s): K22.70 - Roach's esophagus without dysplasia Category: Medical Qualifiers: Roach's esophagus type: without dysplasia Qualified Code(s): K22.70 - Roach's esophagus without dysplasia Plan She continues on lansoprazole once a day, simethicone, senna, magnesium, and Linzess 290 micro g (dosed in the evening). Subjective Roxie is here for follow-up on bloating likely related to constipation and inconsistent use of her Linzess. We recommended that the last visit that she dose it just before supper because she does not take it fearing she will have to go to the bathroom when she is out and about. However, she has not had an affect to implement this strategy yet. Patient presents wearing a mask, reporting upper respiratory symptoms with nasal congestion/stuffy nose. She also reports ongoing abdominal bloating and constipation. She has been taking linaclotide (Linzess) in the morning on an empty stomach and typically notes effect after eating, but recently it has not been effective; she describes feeling ?too dry? and increases water intake. She has avoided taking it on days she goes out. Persistent bloating noted. Relevant Past Medical, Social, and Family History Currently taking furosemide (Lasix) prescribed by Dr. Lui. Patient inquired about starting an [id number] supplement (oil of oregano) recommended by her daughter. Objective Assessment & Plan Constipation with bloating: Suboptimal response to current linaclotide routine with inconsistent daily use. Will adjust timing to improve tolerability and adherence. - Take linaclotide (Linzess) in the evening before supper with a full glass of water, then eat supper. - Encourage daily use to promote regular bowel movements. - Follow up in 8 weeks. Upper respiratory symptoms (nasal congestion): Mild URI symptoms discussed briefly. - Rest. Supplement counseling (oil of oregano) with concurrent diuretic use: Reviewed potential properties and safety. Discussed risks including toxicity with large doses and mild diuretic effect, which may potentiate furosemide and overwork the kidneys; not established for kidney benefit. - Do not start oil of oregano without first discussing with Dr. Lui (prescriber of furosemide/Lasix). - Avoid large doses; monitor for adverse effects (nausea, vomiting, hives, lip swelling). Medications: Refilled linaclotide (Linzess) 290 mcg PO QAM 30 caps 6RF 30 days sennosides (Savanna-dean) 17.2 mg (2 x 8.6 mg) PO BEDTIME 60 tabs 6RF K59.04 - Chronic idiopathic constipation simethicone (Gas Relief Extra Strength) 125 mg PO QID PRN 120 tabs 6RF for abdominal pain magnesium oxide 400 mg PO DAILY 30 tabs 6RF lansoprazole 30 mg PO DAILY 30 caps 6RF K21.9 - Gastro-esophageal reflux disease without esophagitis Coding Level of Care Code Est Pt Level 3 (74853) Diagnoses Chronic idiopathic constipation K59.04 GERD (gastroesophageal reflux disease) K21.9 Roach's esophagus without dysplasia K22.70 Roach's esophagus type: without dysplasia
[2025-03-08 11:18] VITALS: BP 112/79; PULSE 86; BMI 31.0
--- OUTSIDE RECORDS SUMMARY | 2025-03-08 17:57 | XMS_ITS | Encounter Summary ---
Author Organization [facility] Address [address] [place] [address] Phone Care Team Providers Care Hand Slitter Name Role Phone Daryn Duarte MD Primary Care Provider [phone] Encounter Details Date Type Department Care Team (Late st Contact Info) Description 11/19/2021 Telephone [facility] [address] [place] [phone] Mati Durbin MD Social History Tobacco Use [...] your suggestion. Please advise Thank you CB# [phone] Thank you documented in this encounter Plan of Treatment Not on file documented as of this encounter Visit Diagnoses Not on filedocumented in this encounter Care Teams Hand Slitter Relationship Specialty Start Date End Date Daryn Duarte MD [address] [place] [address] [address] [place] [address] PCP - General 04/09/20 documented as of this encounter
--- OUTSIDE RECORDS SUMMARY | 2025-03-08 17:58 | XMS_ITS | Clinical Summary ---
Author Organization [facility] Address [address] [place] [address] Phone Care Team Providers Care Hand Tier Name Role Phone Daryn Duarte MD Primary Care Provider [phone]- [phone] Allergies Active Allergy Reactions Criticality Noted Date [...] 2 Active Cholecalciferol (Vitamin D3) 250 MCG (66476 UT) tablet Take by mouth Activ e [...] (#1) 2024 Insurance ([id number]) ([id number]) Care Teams Hand Tier Relationship Specialty Start Date End Date Daryn Duarte MD [address] [place] [id number] PCP - General 04/09/20
--- OUTSIDE RECORDS SUMMARY | 2025-03-08 17:59 | XMS_ITS | Encounter Summary ---
Author Organization [facility] Address [address] [place] [address] Phone Care Team Providers Care Bag Patcher Name Role Phone Daryn Duarte MD Primary Care Provider [phone] Encounter Details Date Type Department Care Team (Late st Contact Info) Description 10/27/2019 Procedure Pass [facility] [address] [place] [address] Social History Tobacco Use Types Packs/Day Years [...] on filedocumented in this encounter Care Teams Bag Patcher Relationship Specialty Start Date End Date Daryn Duarte MD [address] [place] [address] [place] [address] PCP - General Internal Medicine 10/20/19 documented as of this encounter Additional Source Comments The information contained in this document represents components of the legal health record. It is not the complete legal health record.[facility]
--- OUTSIDE RECORDS SUMMARY | 2025-03-08 17:59 | XMS_ITS | Clinical Summary ---
Author Organization [facility] Address [address] [place] [address] Phone Care Team Providers Care Technical Support Specialist Name Role Phone Daryn Duarte MD Primary Care Provider [phone] Allergies Active Allergy Reactions Criticality Noted Date [...] 7 (seven) days. 2 mL 2 5 02/11/ 025 Discontin ued(Reord er) Active Problems Problem Noted Date Diagnosed Date Class 1 obesity with serious comorbidity and body mass index (BMI) of 33.0 to 33.9 in adult 03/31/2024 Asthma 12/29/2023 CKD (chronic kidney disease) 12/29/2023 GERD (gastroesophageal reflux disease) HTN (hypertension) 12/29/2023 LEANNA (obstructive sleep apnea) 12/29/2023 Seizures 12/29/2023 Encounters Date Type Department Care Team Description 02/21/2025 8:35 AM EST Lab Draw Station - [facility] [address] [facility] [address] [place] [phone] Weight loss 02/21/2025 8:00 AM EST Office Visit Bariatric Surgery [address] [phone] Tavon Galdamez MD Weight loss (Primary Dx); LEANNA (obstructive sleep apnea); Fatigue, unspecified type; Class 1 obesity due to excess calories with body mass index (BMI) of 31.0 to 31.9 in adult, unspecified whether serious comorbidity present 01/16/2025 Telephone Bariatric Surgery [address] [phone] Tavon Galdamez MD 01/03/2025 8:30 AM EDT Nutrition Bariatric Surgery [address] [phone] Tammy Sands, SHIRA Class 1 obesity with serious comorbidity and body mass index (BMI) of 33.0 to 33.9 in adult, unspecified obesity type (Primary Dx) 12/17/2024 Telephone Bariatric Surgery [address] [phone] Tavon Galdamez MD from Last 3 Months [...] Sign Reading Time Taken Comments Blood Pressure 143/88 02/21/2025 8:21 AM EST Pulse 64 02/21/2025 8:21 AM EST Temperature 36.6 C (97.8 F) 02/21/2025 8:21 AM EST Respiratory Rate - - Oxygen Saturation - - Inhaled Oxygen Concentration - - Weight 74.8 kg (165 lb) 02/21/2025 8:21 AM EST Height 154.9 cm (5' 1 ) 02/21/2025 8:21 AM EST Body Mass Index 31.18 02/21/2025 8:21 AM EST Plan of Treatment Upcoming Encounters Date Type Department Care Team (Late st Contact Info) Description 04/06/2025 12:30 PM EST Nutrition Bariatric Surgery - [address] [phone] Tammy Sands, SHIRA [address] [phone] 09/05/2025 10:15 AM EDT Office Visit Bariatric Surgery [address] [phone] Tavon Galdamez MD [address] [place] [phone] Health Maintenance Due Date Last Done Comments [...] Procedure Name Priority Date/Time Associated Diagnosis Comments VITAMIN B12 Routine 02/21/2025 8:36 AM EST Weight loss HEMOGLOBIN A1C Routine 02/21/2025 8:36 AM EST Weight loss IRON AND TIBC Routine 02/21/2025 8:36 AM EST Weight loss ALBUMIN Routine 02/21/2025 8:36 AM EST Weight loss COMPREHENSIVE METABOLIC PANEL Routine 04/18/2024 8:43 AM [...] Recently Relevant to Health Maintenance Results * Iron and TIBC (02/21/2025 8:36 AM EST) Iron 82 40 - 150 mcg/dL 02/21/2025 10:30 AM EST [facility] TIBC 282 250 - 450 mcg/dL 02/21/2025 10:30 AM [facility] Iron Saturation 29 15 - 50 % 10:30 AM [facility] Blood Venous blood specimen / Unknown Venipuncture / Unknown 02/21/2025 8:36 AM EST 02/21/2025 8:36 AM EST us Tavon Galdamez MD LAB BLOOD ORDERABLES Final R esult [facility] [address] [place] [address], * Hemoglobin A1c (02/21/2025 8:36 AM EST) Hemoglobin A1C 5.3 <6.5 % LAB CHEMISTRY METHOD 02/21/2025 1:14 PM EST [facility] Mean Bld Glu Estim. 105 mg/dL LAB CHEMISTRY METHOD 02/21/2025 1:14 PM [facility] Blood Venous blood specimen / Unknown Venipuncture / Unknown 02/21/2025 8:36 AM EST 02/21/2025 8:36 AM EST us Tavon Galdamez MD LAB BLOOD ORDERABLES Final R esult Performing Organization Address City/[facility]/ZIP Co de Phone Number [facility] [address] [place] [address], [place] [phone] * Vitamin B12 (02/21/2025 8:36 AM EST) [facility] Vitamin B-12 358 211 - 911 pcg/mL 02/21/2025 10:29 AM EST [facility] Blood Venous blood specimen / Unknown Venipuncture / Unknown 02/21/2025 8:36 AM EST 02/21/2025 8:36 AM EST us Tavon Galdamez MD LAB BLOOD ORDERABLES Final R esult Performing Organization Address City/[facility]/ZIP Co de Phone Number [facility] [address] [place] [address], [place] [phone] * Albumin (02/21/2025 8:36 AM EST) [facility] Albumin 4.4 3.2 - 5.0 g/dL 02/21/2025 10:27 AM EST [facility] Blood Venous blood specimen / Unknown Venipuncture / Unknown 02/21/2025 8:36 AM EST 02/21/2025 8:36 AM EST us Tavon Galdamez MD LAB BLOOD ORDERABLES Final R esult Performing Organization Address City/[facility]/ZIP Co de Phone Number [facility] [address] [place] [address], [place] [phone] * (ABNORMAL) Lipid panel with reflex to direct LDL (04/18/2024 8:43 AM EST) [facility] Cholesterol 181 0 - 200 mg/dL LAB CHEMISTRY METHOD 04/18/2024 10:22 AM [facility] Triglycerides 90 0 - 150 mg/dL LAB CHEMISTRY METHOD 04/18/2024 10:22 AM [facility] HDL 58 >=40 mg/dL LAB CHEMISTRY METHOD 04/18/2024 10:22 AM [facility] LDL Calculated 105(H) 0 - 100 mg/dL LAB CHEMISTRY METHOD 04/18/2024 10:22 AM [facility] VLDL Cholesterol Gerhard 18 mg/dL LAB CHEMISTRY METHOD 04/18/2024 10:22 AM [facility] Non HDL Chol. (LDL+VLDL) 123 <145 mg/dL LAB CHEMISTRY METHOD 04/18/2024 10:22 AM [facility] Chol/HDL Ratio 3.1 0.0 - 4.4 LAB CHEMISTRY METHOD 04/18/2024 10:22 AM [facility] Blood Venous blood specimen / Unknown Venipuncture / Unknown 04/18/2024 8:43 AM EST 04/18/2024 8:44 AM EST Haydee Espinosa MD LAB BLOOD ORDERABLES Fi nal Result [facility] [address] [place] [address], * (ABNORMAL) Comprehensive metabolic panel (04/18/2024 8:43 AM EST) Sodium 140 133 - 145 mmol/L LAB CHEMISTRY METHOD 04/18/2024 10:22 AM [facility] Potassium 4.6 3.5 - 5.5 mmol/L LAB CHEMISTRY METHOD 04/18/2024 10:22 AM [facility] Chloride 106 96 - 110 mmol/L LAB CHEMISTRY METHOD 04/18/2024 10:22 AM [facility] CO2 30 21 - 32 mmol/L LAB CHEMISTRY METHOD 04/18/2024 10:22 AM [facility] Anion Gap 4 3 - 11 LAB CHEMISTRY METHOD 04/18/2024 10:22 AM [facility] Glucose 90 70 - 100 mg/dL LAB CHEMISTRY METHOD 04/18/2024 10:22 AM [facility] BUN 31(H) 5 - 25 mg/dL LAB CHEMISTRY METHOD 04/18/2024 10:22 AM [facility] Creatinine 2.11(H) 0.50 - 1.10 mg/dL LAB CHEMISTRY METHOD 04/18/2024 10:22 AM [facility] eGFR 27(L) >=60 mL/min/1. 73m2 LAB CHEMISTRY METHOD 04/18/2024 10:22 AM [facility] Comment:Calculation based on the Chronic Kidney Disease Epidemiology Collaboration (CKD-EPI) equation refit without adjustment for race. BUN/Creatinine Ratio 14.7 LAB CHEMISTRY METHOD 04/18/2024 10:22 AM [facility] Calcium 9.2 8.5 - 10.5 mg/dL LAB CHEMISTRY METHOD 04/18/2024 10:22 AM [facility] AST (SGOT) 18 10 - 42 unit/L LAB CHEMISTRY METHOD 04/18/2024 10:22 AM [facility] ALT (SGPT) 21 10 - 60 unit/L LAB CHEMISTRY METHOD 04/18/2024 10:22 AM [facility] Alkaline Phosphatase 112 42 - 121 unit/L LAB CHEMISTRY METHOD 04/18/2024 10:22 AM [facility] Total Protein 6.5 6.0 - 8.0 g/dL LAB CHEMISTRY METHOD 04/18/2024 10:22 AM [facility] Albumin 3.4 3.2 - 5.0 g/dL LAB CHEMISTRY METHOD 04/18/2024 10:22 AM [facility] Total Bilirubin 0.2 0.0 - 1.4 mg/dL LAB CHEMISTRY METHOD 04/18/2024 10:22 AM EST [facility] Blood Venous blood specimen / Unknown Venipuncture / Unknown 04/18/2024 8:43 AM EST 04/18/2024 8:44 AM EST us Haydee Espinosa MD LAB BLOOD ORDERABLES Fi nal Result [facility] [address] [place] [address], from Last 3 Months or Most Recently Relevant to Health Maintenance Insurance [facility] MEDICARE Member Subscriber Plan / Payer (Ef fective 2018-Present) Name:ROXIE HOBBS Relation to Subscriber:Self Name:Roxie Hobbs I Payer ID:[id number] Group ID:[id number] Type:Not on file Address: [place] [address] [address] [address] Care Teams Technical Support Specialist Relationship Specialty Start Date End Date Daryn Duarte MD [address] [place] [address] [address] [place], [place] PCP - General Internal Medicine 05/21/17
== END 2025-03-08 11:48 | disposition home or self-care (01) ==
LOC: HO.HGI 11:11
PROVIDERS: PCP Internal Medicine; Visit Provider Nurse Practitioner
DX: K59.04 Chronic idiopathic constipation (principal); K21.9 Gastro-esophageal reflux disease without esophagitis; K22.70 Barrett's esophagus without dysplasia
CPT/HCPCS: 99213